=== PATIENT | male | born 1930 | race Caucasian/White ===

== ENCOUNTER 2018-08-29 04:57 | Inpatient (IN) | payer MEDICARE, OTHER ==
[~2018-08-29] VITALS: Ht 170.2 cm; Wt 83.6 kg
[2018-08-29] MEDS ORDERED: IPRATROPIUM (NEB) 0.5 MG/2.5 ML AMP INH STA (05:12)
[2018-08-29] MEDS ORDERED: ALBUTEROL 0.083% (NEB) 2.5 MG/3 ML AMP INH STA (05:12)
[2018-08-29] MEDS ORDERED: FUROSEMIDE 40 MG INJ IV ONE (05:30)
[2018-08-29] MEDS: PANTOPRAZOLE (EC) 40 MG TAB PO SCH (06:00)
[2018-08-29] MEDS ORDERED: NACL 0.9% 3 ML SYG IV SCH (06:00)
[2018-08-29] MEDS ORDERED: ACETAMINOPHEN 325 MG TAB PO PRN (06:00)
[2018-08-29] MEDS ORDERED: DOCUSATE SODIUM 100 MG CAP PO PRN (06:00)
[2018-08-29] MEDS ORDERED: MAGNESIUM HYDROXIDE 30ML CUP PO PRN (06:00)
--- NOTE | 2018-08-29 06:02 | ERD ---
ER Documentation Chief Complaint Chief Complaint sob/fever x 2 days HPI This is a 87-year-old male who presents for evaluation of shortness of breath, and low-grade fevers at home. Temperature on arrival was 100.2, patient has been having coarse breath sounds, since earlier today, per the son, he has a history of "fluid in his lungs". He is currently on Lasix. He denies nausea or vomiting. He endorses some urinary retention, no abdominal pain. ROS All systems reviewed and are negative except as per history of present illness. Medications Home Meds Unable to Obtain Active Prescriptions or Reported Meds Allergies Allergies: Coded Allergies: No Known Allergy (Unverified , 10/07/13) PMhx/Soc History of Surgery: Yes (APPENDECTOMY. SUPRAPUBIC CATHETER PLACEMENT) Anesthesia Reaction: No Hx Neurological Disorder: No Hx Respiratory Disorders: Yes (ASTHMA. BRONCHITIS. COPD. PNEUMONIA. ) Hx Cardiac Disorders: Yes (A.FIB, HF) Hx Psychiatric Problems: Yes (DEPRESSION) Hx Miscellaneous Medical Probl: Yes (HTN, A-fib, urinary retention , herniated disk) Hx Alcohol Use: No Hx Substance Use: No Hx Tobacco Use: No Smoking Status: Former smoker Physical Exam Vitals Vital Signs Date Temp Pulse Resp B/P (MAP) Pulse Ox O2 O2 Flow FiO2 Time Delivery Rate 08/29/18 67 24 94 21 05:56 08/29/18 100.2 66 22 125/55 94 Room Air 05:47 (78) 08/29/18 100.2 67 22 167/74 94 05:02 (105) Physical Exam Const: No acute distress Head: Atraumatic Eyes: Normal Conjunctiva ENT: Normal External Ears, Nose and Mouth. Neck: Full range of motion. No meningismus. Resp: Breath sounds are rhonchorous bilaterally, with noted expiratory wheezing, there is mild JVD Cardio: Regular rate and rhythm, no murmurs Abd: Soft, non tender, non distended, no rebound or guarding. Normal bowel sounds Skin: No petechiae or rashes Back: No midline or flank tenderness Ext: No cyanosis, or edema Neur: Awake and alert Psych: Normal Mood and Affect Result Diagram: 08/29/18 05 Results 24 hrs Laboratory Tests Test 08/29/18 05:26 08/29/18 05:47 White Blood Count 8.2 10^3/ul Red Blood Count 3.50 10^6/ul Hemoglobin 10.9 g/dl Hematocrit 34.0 % Mean Corpuscular Volume 97.1 fl Mean Corpuscular Hemoglobin 31.1 pg Mean Corpuscular Hemoglobin Concent 32.1 g/dl Red Cell Distribution Width 13.2 % Platelet Count 196 10^3/UL Mean Platelet Volume 10.3 fl Immature Granulocytes % 0.400 % Neutrophils % 69.4 % Lymphocytes % 17.3 % Monocytes % 11.4 % Eosinophils % 1.1 % Basophils % 0.4 % Nucleated Red Blood Cells % 0.0 /100WBC Immature Granulocytes # 0.030 10^3/ul Neutrophils # 5.7 10^3/ul Lymphocytes # 1.4 10^3/ul Monocytes # 0.9 10^3/ul Eosinophils # 0.1 10^3/ul Basophils # 0.0 10^3/ul Nucleated Red Blood Cells # 0.0 10^3/ul Prothrombin Time 16.5 Sec Prothrombin Time Ratio 1.3 INR International Normalized Ratio 1.32 Bedside Urine pH (LAB) 5.0 Bedside Urine Protein (LAB) Negative Bedside Urine Glucose (UA) Negative Bedside Urine Ketones (LAB) Negative Bedside Urine Blood 2+ Bedside Urine Nitrite (LAB) Negative Bedside Urine Leukocyte Esterase (L 1+ Current Medications Medications Dose Sig/Reyna Start Time Status Last (Trade) Ordered Route PRN Stop Time Admin Dose Reason Admin Albuterol 5 mg ONCE STAT 08/29/18 DC 08/29/18 (Proventil INH 05:12 08/29/18 05:55 0.083% (Neb)) 05:14 Ipratropium 0.5 mg ONCE STAT 08/29/18 DC 08/29/18 [place] INH 05:12 08/29/18 05:56 (Atrovent 05:14 0.02% (Neb)) Furosemide 40 mg ONCE ONCE 08/29/18 DC 08/29/18 (Lasix) IV 05:30 08/29/18 05:44 05:31 Procedures/MDM 87-year-old male presents for evaluation of shortness of breath. On exam, patient had coarse breath sounds, my suspicion is that the patient most likely has bronchitis, with superimposed CHF. He had no evidence of sepsis or severe sepsis, her EKG showed no evidence of ischemia. He was treated with albuterol and ipratropium, also given a dose of Lasix. Patient will be admitted to telemetry. On review of his x-ray, he had no evidence of consolidation or signs of bacterial pneumonia. Bacterial cultures were ordered but at this point there is no clear evidence of bacterial infection. EKG: Rate/Rhythm: Normal Sinus Rhythm QRS, ST, T-waves: No changes consistent w/ acute ischemia Impression: No evidence of ischemia or arrhythmia Accepting Care Team: Current data and ongoing care discussed. Primary: [place] Consulting: None Outstanding Data: none Departure Diagnosis: Primary Impression: Shortness of breath Additional Impression: CHF (congestive heart failure) Heart failure type: unspecified Heart failure chronicity: unspecified Qualified Codes: I50.9 - Heart failure, unspecified Condition: Stable ALIVIA WELLS MD Aug 29, 2018 06:02
[2018-08-29] MEDS ORDERED: AMIO200T4 PO (06:43)
[2018-08-29] MEDS ORDERED: ESCI10TA48 PO (06:43)
[2018-08-29] MEDS ORDERED: HYDR-3601 PO (06:43)
[2018-08-29] MEDS ORDERED: DEXL60CA2 PO (06:43)
[2018-08-29] MEDS ORDERED: SIMV20TA20 PO (06:43)
[2018-08-29] MEDS ORDERED: FURO40TA4 PO (06:43)
[2018-08-29] MEDS ORDERED: POTA8TAB46 PO (06:43)
[2018-08-29] MEDS ORDERED: LOSA50TA14 PO (06:43)
[2018-08-29] MEDS ORDERED: ALPR0.5T6 PO (06:43)
[2018-08-29] MEDS ORDERED: APIX5TAB PO (06:44)
[2018-08-29] MEDS ORDERED: ALBUTEROL 0.083% (NEB) 2.5 MG/3 ML AMP HHN STA (07:17)
[2018-08-29] MEDS: ONDANSETRON 4 MG INJ IV PRN (07:43)
[2018-08-29] MEDS ORDERED: ACETAMINOPHEN 650 MG SUPP PR ONE ×2 (08:29→08:30)
[2018-08-29] MEDS ORDERED: ACETAMINOPHEN 325 MG SUPP PR ONE ×2 (08:29→08:30)
[2018-08-29] MEDS ORDERED: ACETAMINOPHEN 325 MG TAB PO ONE (08:30)
[2018-08-29] MEDS: AZITHROMYCIN 500MG/NS (PMX) 250 ML IVPB SCH (09:03)
[2018-08-29] MEDS: ALBUTEROL/IPRATROPIUM (NEB) 3 ML AMP HHN SCH ×4 (09:13→19:56)
[2018-08-29] MEDS ORDERED: CEFTRIAXONE 1 GM/50 ML (PMX) 50 ML IVPB SCH (10:00)
[2018-08-29 10:30] VITALS: Ht 170.2 cm; Wt 83.6 kg
[2018-08-29 11:25] VITALS: BP 129/62; PULSE 64; RESP 21
[2018-08-29] MEDS: SOD CHLORIDE 0.9% 1,000 ML IV SCH ×2 (12:06→21:29)
[2018-08-29] MEDS: APIXABAN 5 MG TABLET PO SCH ×2 (12:12→21:29)
[2018-08-29] MEDS: AMIODARONE 200 MG TAB PO SCH (12:12)
[2018-08-29 12:36] VITALS: PULSE 64
[2018-08-29] MEDS: METHYLPREDNISOLONE 125 MG INJ IV SCH ×2 (13:18→21:29)
[2018-08-29] MEDS: CEFEPIME 2GM/50 ML (PMX) 50 ML IVPB SCH (13:18)
[2018-08-29 15:25] VITALS: BP 127/60; PULSE 80; RESP 20
[2018-08-29 16:42] VITALS: PULSE 63
--- NOTE | 2018-08-29 17:31 | HP ---
DATE OF ADMISSION: 08/29/2018 REASON FOR ADMISSION: Acute respiratory failure, high grade fever, acute bronchitis. HISTORY OF PRESENT ILLNESS: The patient is an 87-year-old Citizen Of [place] male well known to me from previo us admission. He has a history of hypertension, atrial fibrillation, urinary retention, previously w ith indwelling Mcgowan catheter, and then suprapubic catheter, which were all removed after as he had r ecently a prostate procedure at [facility] as the patient is not able to urinate. The patient also has lashonda k pain with a herniated disk with history of radiculopathy. The patient has been in the past 2 to 3 weeks, battling mild cough and wheezing. The patient's symptoms got worse with fevers, cough and wor sening shortness of breath. He presented to the emergency department for evaluation. In the ER, the patient's chest x-ray showed right basilar interstitial opacities, new from the prior exam from a fe w hours prior, likely reflecting atelectasis, mild prominence of interstitial markings may reflect mi ld underlying interstitial edema or chronic changes, mild cardiomegaly and aortic atheroscleros is. In the first chest x-ray shows no evidence of acute cardiopulmonary disease, aortic calcificatio n. Further findings will discussed. Ultimately, the patient did receive 40 IV of Lasix, but then he had high grade fever up to 105.5. I did start the patient on Rocephin and azithromycin. Upon evalu ation, the patient does report shortness of breath, fevers and cough. The patient is admitted for fu rther care. PAST MEDICAL HISTORY: Includes hypertension, atrial fibrillation, urinary retention, history of supr apubic catheter, constipation, neurogenic bladder. ALLERGIES: NO DRUG ALLERGIES. SOCIAL HISTORY: He is , +1. Tobacco, used to smoke in the past more than 30 years ago. No a lcohol or IV drug use. PAST SURGICAL HISTORY: Includes suprapubic catheter placement in the past with the above prostate pr ocedulani at [facility] 3 weeks ago. FAMILY HISTORY: Both parents in their 70s, unknown medical problems. The patient is from [facility]. CURRENT MEDICATIONS: Includes: 1. Eliquis 5 mg b.i.d. 2. Amiodarone 200 mg daily. 3. Losartan 50 mg daily. 4. Simvastatin 20 mg at bedtime. 5. Alprazolam 0.5 at bedtime. 6. Lexapro 20 mg daily. 7. [place] 5/325 daily. 8. Lasix 40 mg daily. 9. KCl 8 mEq b.i.d. 10. Dexilant 60 mg daily. PHYSICAL EXAMINATION: VITAL SIGNS: Temperature 102.4, T-max 105.5, pulse 70, respirations 20, blood pressure 121/76, satur ation 97% on high flow oxygen. GENERAL: The patient is in no acute distress, alert. CARDIOVASCULAR: S1 and S2. Distant heart sounds. LUNGS: Diffuse rhonchi and wheezing bilaterally, moderate to severe. ABDOMEN: Soft, nontender. EXTREMITIES: Trace edema of the lower extremities after the Lasix in the ER. The patient movi ng all extremities. The patient currently has a Mcgowan. LABORATORY DATA: White count is 8.2, hemoglobin 10.9, hematocrit 34, platelet count of 196, neutroph ils 69%, lymphocytes 17%, monocytes 11%. Chemistry: Sodium 138, potassium 4.5, chloride 105, bicarb lucas 24, BUN is 22, creatinine 2.14, glucose 108. Lactic acid is high at 3.5. AST 33, ALT 32, missael line phosphatase 69. BNP 1650. Total protein 7.0, albumin 4.0. Urinalysis does show +1 leukocyte e sterase. INR is 1.32. Renal ultrasound, which I ordered shows markedly limited exam by technique an d due to the patient's ability to position for the exam. The kidneys are not visualized due to overl jailnee bowel gas. Non-distended urinary bladder with Mcgowan catheter in place. ASSESSMENT AND PLAN: This is an 87-year-old Citizen Of [place] male with history of atrial fibrillation, hyper tension, urinary retention, low back pain, depression, who presented with 2 to 3 weeks with worsening shortness of breath, was found to have acute respiratory failure, likely due to acute bronchitis, po ssible early pneumonia. 1. Respiratory. The patient is in respiratory distress. We will place the patient on breathing gwen atment around the clock, IV steroids with Solu-Medrol and antibiotics with cefepime and azithromycin. Check MRSA of the nares. Consider pulmonary consultation for further recommendation. 2. Cardiovascular. Less likely CHF picture. As the patient had elevated lactic acid and high grade fever, we will start the patient on gentle hydration and monitor closely. Obtain 2D echo to evaluat e ejection fraction. The patient will continue with Eliquis in the history of atrial fibrillation. EKG showed normal sinus rhythm with sinus arrhythmia at 86 beats per minute. We will follow. Contin ue Eliquis for blood thinners. 3. Urinary tract infection with acute bronchitis. The patient to be placed on cefepime. Follow up urine culture results. 4. Depression. Continue antidepressant. 5. The patient will be placed on soft diet. Aspiration precaution will be provided. 6. The patient will be placed on Protonix for GI prophylaxis. 7. Stool softeners will be provided. Monitor the patient's fever curve and overall condition. Keep the patient to the telemetry unit. 8. Acute renal failure. Again, the patient will be hydrated gently in the setting of fevers and link al failure. Mcgowan to gravity. Noted ultrasound of the above, which no evidence of hydronephrosis. We will follow closely. Case discussed with his nephew at bedside. We will follow. Dictated By: SERGIO CERVANTES/NEHAL Conf#: [id number] DID#: [id number]
[2018-08-29 20:00] VITALS: PULSE 65
[2018-08-29 20:37] VITALS: BP 126/60; PULSE 63; RESP 22
[2018-08-29] MEDS: ALPRAZOLAM 0.5 MG TAB PO SCH (21:29)
[2018-08-30] VITALS (12 sets, daily range): BP systolic 122–146; BP diastolic 56–67; PULSE 64–87; RESP 20–24
[2018-08-30] MEDS: ALBUTEROL/IPRATROPIUM (NEB) 3 ML AMP HHN SCH ×6 (01:03→20:14)
[2018-08-30] MEDS: SOD CHLORIDE 0.9% 1,000 ML IV SCH ×2 (02:00→11:15)
[2018-08-30] MEDS: PANTOPRAZOLE (EC) 40 MG TAB PO SCH (05:08)
[2018-08-30] MEDS: METHYLPREDNISOLONE 125 MG INJ IV SCH ×2 (05:09→14:12)
[2018-08-30] MEDS: AZITHROMYCIN 500MG/NS (PMX) 250 ML IVPB SCH (08:51)
[2018-08-30] MEDS: ESCITALOPRAM 10 MG TAB PO SCH (08:51)
[2018-08-30] MEDS: AMIODARONE 200 MG TAB PO SCH (08:52)
[2018-08-30] MEDS: APIXABAN 5 MG TABLET PO SCH ×2 (08:52→21:36)
[2018-08-30] MEDS: CEFEPIME 2GM/50 ML (PMX) 50 ML IVPB SCH (11:14)
--- NOTE | 2018-08-30 17:55 | PN ---
DATE: 08/30/2018 SUBJECTIVE: The patient was seen, overall doing better, still slight wheezing, but appears to be mor e anxious, likely from Solu-Medrol. PHYSICAL EXAMINATION: VITAL SIGNS: Temperature 97.8, pulse 76, respirations 20, blood pressure 135/60, saturation 95% on 4 liters. GENERAL: The patient is in no acute distress. He is slightly tremulous. HEENT: The patient is flushed at the face. CARDIOVASCULAR: S1, S2. LUNGS: Still mild to moderate wheezing throughout. ABDOMEN: Soft, nontender. EXTREMITIES: Trace edema lower extremities. LABORATORY DATA: White count 8.2, hemoglobin 10.9, hematocrit 34, platelet count is 196, neutrophils 69%, lymphocytes 17%. Chemistry: Sodium 138, potassium 4.5, chloride 105, bicarbonate 24, BUN 32, creatinine 2.14, glucose 108. This was yesterday. Today's latest labs were just ordered, CBC and ba sic metabolic panel. Hemoglobin A1c is 5.3. Lactic acid went nicely from 4.2 to 2.1. The patient's urinalysis was positive. INR was 1.32. Influenza A and B was negative. MRSA screening is pending. So far, blood cultures, urine culture negative. DIAGNOSTIC DATA: Renal ultrasound shows markedly limited examination due to the patient's ability po sition for exam. The kidneys are not visualized. Not distended urinary bladder with Mcgowan catheter in place. MEDICATIONS: 1. Lexapro 20 mg daily. 2. Xanax 0.5 mg at bedtime. 3. Solu-Medrol 80 mg IV q.8. 4. Cefepime 1 gram q.24 hours. 5. Eliquis 2.5 b.i.d. 6. Amiodarone 200 mg daily. 7. Normal saline at 90 mL an hour. 8. DuoNeb every 4 hours. 9. Azithromycin 250 daily. 10. DuoNeb every 2 hours p.r.n. 11. Zofran p.r.n. 12. Tylenol p.r.n. 13. Colace p.r.n. 14. Milk of Magnesia p.r.n. 15. Protonix p.r.n. ASSESSMENT AND PLAN: This is an 87-year-old [place] male with history of atrial fibrillation, hyper tension, urinary retention, low back pain, depression, presented with 2 to 3 days worsening shortness of breath, was found to have acute respiratory failure, likely acute bronchitis and possible early p neumonia. 1. Respiratory: Continue treatment for chronic obstructive pulmonary disease exacerbation and acute bronchitis. Taper down steroids. Continue antibiotic with cefepime and azithromycin. Awaiting pul monary consultation. Methicillin-resistant Staphylococcus aureus of the nares is pending. 2. Cardiovascular: Less likely congestive heart failure but we will Hep-Lock IV fluids. His lactic acid has improved. Continue Eliquis for anticoagulation for atrial fibrillation based on age and ki dney function. 3. Acute on chronic renal insufficiency. Hydrate with IV fluids. Follow up kidney function and lab s today. 4. Urinary and acute bronchitis. Continue above antibiotics. 5. Depression. Continue antidepressants. 6. Anxiolytics p.r.n. 7. Continue Protonix for gastrointestinal prophylaxis. 8. Stool softeners are being provided. 9. Keep Mcgowan for now until the patient's overall condition improves more. Overall, clinically bett er. We will follow. Dictated By: SERGIO CERVANTES/NEHAL Conf#: [id number] DID#: [id number]
[2018-08-30] MEDS ORDERED: FUROSEMIDE 40 MG INJ IV ONE (20:00)
--- NOTE | 2018-08-30 20:02 | CONS ---
Assessment/Plan Assessment/Plan Assessment/Plan (Daily) IMP: 1. Hypoxemic Respiratory Insufficiency--a complicated clinical picture that is likely multifactorial representing a combination of notable bronchospasm and mild decompensated heart failure. No obvious pneumonia noted on chest radiographs. Additionally, his high fevers and leukocytosis cannot be explained by his respiratory issues, raising concern for an alternative source of infection (ie. urinary). RECS: 1. Agree with aggressive duonebs and systemic corticosteroids 2. Continue antibiotics 3. F/U cultures 4. Repeat UA 5. Lasix IV 6. Follow I/O's and creatinine 7. May also benefit from chest PT 8. Am CXR and labs Consultation Date/Type/Reason Admit Date/Time Aug 29, 2018 at 05:45 Date of Consultation: Aug 30, 2018 Type of Consult Pulm Date/Time of Note DATE: 08/30/18 TIME: 19:54 Hx of Present Illness Briefly, this is an 87-year-old man with history of atrial fibrillation, hypertension, urinary retention s/p TURP, low back pain, depression, presented with 2 to 3 days worsening shortness of breath, was found to have acute hypoxemic respiratory insufficiency with wheezing. Also endorses orthopnea and PND. Had high fevers yesterday and an up-trending WBC count. Constitutional: no complaints Eyes: no complaints ENT: no complaints Respiratory: no complaints, shortness of breath, wheezing Cardiovascular: no complaints, orthopenea, paroxysmal nocturnal dyspnea Gastrointestinal: no complaints Genitourinary: no complaints Musculoskeletal: no complaints Skin: no complaints Neurologic: no complaints Endocrine: no complaints Lymphatic: no complaints Psychological: no complaints Past Medical History as per HPI Home Meds Reported Medications Losartan Potassium* (Losartan Potassium*) 50 Mg Tablet, 50 MG PO DAILY, TAB 08/29/18 Simvastatin (Simvastatin) 20 Mg Tablet, 20 MG PO QHS for 90 Days, #90 08/29/18 Furosemide* (Furosemide*) 40 Mg Tablet, 40 MG PO DAILY for 90 Days, #90 08/29/18 Potassium Chloride (K-Tab ER) 8 Meq Tablet.er, 8 MEQ PO BID for 90 Days, #180 08/29/18 Escitalopram Oxalate* (Escitalopram Oxalate*) 10 Mg Tablet, 20 MG PO DAILY for 90 Days, #90 08/29/18 Hydrocodone Bit-Acetaminophen (Hydrocodone Bit-APAP) 5-325MG Tablet, 1 TAB PO DAILY 6/1/19 Dexlansoprazole (Dexilant) 60 Mg Tree., 60 MG PO DAILY for 90 Days, #90 08/29/18 Amiodarone Hcl* (Amiodarone Hcl*) 200 Mg Tablet, 200 MG PO DAILY for 90 Days, #90 08/29/18 Alprazolam* (Alprazolam*) 0.5 Mg Tablet, 0.5 MG PO QHS for 30 Days, #30 08/29/18 Discontinued Reported Medications Apixaban* (Eliquis*) 5 Mg Tablet, 5 MG PO BID for 90 Days, #180 08/29/18 Medications Current Medications IV Flush (NS 3 ml) 3 ml PER PROTOCOL IV ; Start 08/29/18 at 06:00 Ondansetron HCl (Zofran Inj) 4 mg Q6H PRN IV NAUSEA/VOMITING Last administered on 08/29/18at 07:43; Admin Dose 4 MG; Start 08/29/18 at 06:00 Acetaminophen (Tylenol Tab) 650 mg Q6H PRN PO .PAIN 1-3 OR TEMP; Start 08/29/18 at 06:00 Docusate Sodium (Colace) 100 mg Q12H PRN PO .CONSTIPATION; Start 08/29/18 at 06:00 Magnesium Hydroxide (Milk Of Mag) 30 ml DAILY PRN PO .CONSTIPATION; Start 08/29/18 at 06:00 Pantoprazole (Protonix Tab) 40 mg DAILY@06 PO Last administered on 08/30/18at 0 5:08; Admin Dose 40 MG; Start 08/29/18 at 06:00 Albuterol/ Ipratropium (Duoneb) 3 ml Q4H RESP THERAPY HHN Last administered on 08/30/18at 16:51; Admin Dose 3 ML; Start 08/29/18 at 09:00 Albuterol/ Ipratropium (Duoneb) 3 ml Q2H RESP THERAPY PRN HHN SHORTNESS OF BREATH; Start 08/29/18 at 06:30 Azithromycin 250 ml @ 250 mls/hr DAILY IVPB Last administered on 08/30/18at 08:51; Admin Dose 250 MLS/HR; Start 08/29/18 at 09:00 Cefepime HCl 50 ml @ 100 mls/hr Q24H IVPB Last administered on 08/30/18at 11:14; Admin Dose 100 MLS/HR; Start 08/29/18 at 12:00 Apixaban (Eliquis) 2.5 mg BID PO Last administered on 08/30/18at 08:52; Admin Dose 2.5 MG; Start 08/29/18 at 11:00 Alprazolam (Xanax) 0.5 mg QHS PO Last administered on 08/29/18at 21:29; Admin Dose 0.5 MG; Start 08/29/18 at 21:00 Amiodarone HCl (Cordarone) 200 mg DAILY PO Last administered on 08/30/18at 08:52; Admin Dose 200 MG; Start 08/29/18 at 11:00 Escitalopram Oxalate (Lexapro) 20 mg DAILY PO Last administered on 08/30/18at 08:51; Admin Dose 20 MG; Start 08/30/18 at 09:00 Methylprednisolone Sodium Succinate (Solu-Medrol) 40 mg Q8 IV ; Start 08/30/18 at 22:00 Allergies: Coded Allergies: No Known Allergy (Unverified , 10/07/13) Past Surgical History as per HPI Family History Significant Family History: no pertinent family hx Social History Alcohol Use: none Smoking Status: Former smoker Drug Use: none Exam/Review of Systems Exam Vitals Vital Signs Date Temp Pulse Resp B/P (MAP) Pulse Ox O2 O2 Flow FiO2 Time Delivery Rate 08/30/18 4.0 18:30 08/30/18 96 16:56 08/30/18 82 20 Aerosol 16:55 Mask Nasal Cannula 08/30/18 98.1 144/67 15:00 (92) 08/29/18 80 09:14 Intake and Output 08/29/18 08/29/18 08/30/18 1515:00 23:00 07:00 IntakeIntake Total 500 ml 1760 ml OutputOutput Total 1400 ml 400 ml BalanceBalance -900 ml 1360 ml Constitutional: alert, oriented, well developed Head: normocephalic, atraumatic Eyes: nl conjunctiva, EOMI, nl lids ENMT: mucosa pink and moist Neck: supple, non-tender Respiratory: congested cough, crackles/rales, wheezing Cardiovascular: edema, irregular rhythm Gastrointestinal: soft, nl liver, spleen, non-tender Musculoskeletal: nl extremities to inspection Extremities: edema Neurological: RECREATION ENGINEER II-XII intact, DTR's symmetric Results Result Diagram: 08/30/18 1538 08/30/18 1747 Results 24hrs Laboratory Tests Test 08/30/18 05:07 08/30/18 15:38 08/30/18 17:47 Hemoglobin A1c 5.3 Lactic Acid Level 2.1 *H White Blood Count 18.9 #H Red Blood Count 3.54 L Hemoglobin 11.2 L Hematocrit 34.4 L Mean Corpuscular Volume 97.2 Mean Corpuscular Hemoglobin 31.6 Mean Corpuscular Hemoglobin Concent 32.6 Red Cell Distribution Width 13.9 Platelet Count 184 Mean Platelet Volume 11.7 H Immature Granulocytes % 1.500 H Neutrophils % Segmented Neutrophils % (Manual) 76 Band Neutrophils % (Manual) 20 H Lymphocytes % Lymphocytes % (Manual) 1 L Monocytes % Monocytes % (Manual) 2 Eosinophils % Basophils % Metamyelocytes % (manual) 1 H Nucleated Red Blood Cells % 0.0 Immature Granulocytes # 0.290 H Neutrophils # Neutrophils # (Manual) 15.1 H Band Neutrophils # 3.7 H Lymphocytes (Manual) 0.1 L Lymphocytes # 0.2 L Monocytes # 0.4 Monocytes # (Manual) 0.3 Eosinophils # Basophils # Metamyelocytes # 0.1 H Nucleated Red Blood Cells # Platelet Estimate NORMAL Sodium Level 140 Potassium Level 4.4 Chloride Level 108 Carbon Dioxide Level 21 Anion Gap 11 Blood Urea Nitrogen 43 #H Creatinine 1.99 H Est Glomerular Filtrat Rate mL/min Glucose Level 162 Calcium Level 8.1 L Medications Medication Current Medications IV Flush (NS 3 ml) 3 ml PER PROTOCOL IV ; Start 08/29/18 at 06:00 Ondansetron HCl (Zofran Inj) 4 mg Q6H PRN IV NAUSEA/VOMITING Last administered on 08/29/18at 07:43; Admin Dose 4 MG; Start 08/29/18 at 06:00 Acetaminophen (Tylenol Tab) 650 mg Q6H PRN PO .PAIN 1-3 OR TEMP; Start 08/29/18 at 06:00 Docusate Sodium (Colace) 100 mg Q12H PRN PO .CONSTIPATION; Start 08/29/18 at 06:00 Magnesium Hydroxide (Milk Of Mag) 30 ml DAILY PRN PO .CONSTIPATION; Start 08/29/18 at 06:00 Pantoprazole (Protonix Tab) 40 mg DAILY@06 PO Last administered on 08/30/18 05:08; Admin Dose 40 MG; Start 08/29/18 at 06:00 Albuterol/ Ipratropium (Duoneb) 3 ml Q4H RESP THERAPY HHN Last administered on 08/30/18 16:51; Admin Dose 3 ML; Start 08/29/18 at 09:00 Albuterol/ Ipratropium (Duoneb) 3 ml Q2H RESP THERAPY PRN HHN SHORTNESS OF BREATH; Start 08/29/18 at 06:30 Azithromycin 250 ml @ 250 mls/hr DAILY IVPB Last administered on 08/30/18 08:51; Admin Dose 250 MLS/HR; Start 08/29/18 at 09:00 Cefepime HCl 50 ml @ 100 mls/hr Q24H IVPB Last administered on 08/30/18 11:14; Admin Dose 100 MLS/HR; Start 08/29/18 at 12:00 Apixaban (Eliquis) 2.5 mg BID PO Last administered on 08/30/18 08:52; Admin Dose 2.5 MG; Start 08/29/18 at 11:00 Alprazolam (Xanax) 0.5 mg QHS PO Last administered on 08/29/18 21:29; Admin Dose 0.5 MG; Start 08/29/18 at 21:00 Amiodarone HCl (Cordarone) 200 mg DAILY PO Last administered on 08/30/18 08:52; Admin Dose 200 MG; Start 08/29/18 at 11:00 Escitalopram Oxalate (Lexapro) 20 mg DAILY PO Last administered on 08/30/18 08:51; Admin Dose 20 MG; Start 08/30/18 at 09:00 Methylprednisolone Sodium Succinate (Solu-Medrol) 40 mg Q8 IV ; Start 08/30/18 at 22:00 MICAELA AGUILERA MD Aug 30, 2018 20:02
[2018-08-30] MEDS: METHYLPREDNISOLONE 40 MG INJ IV SCH (21:36)
[2018-08-30] MEDS: ALPRAZOLAM 0.5 MG TAB PO SCH (21:36)
[2018-08-30] MEDS: ALBUTEROL/IPRATROPIUM (NEB) 3 ML AMP HHN PRN (23:15)
[2018-08-31] VITALS (26 sets, daily range): BP systolic 112–172; BP diastolic 52–81; PULSE 72–91; RESP 16–31
[2018-08-31] MEDS: ALBUTEROL/IPRATROPIUM (NEB) 3 ML AMP HHN SCH ×6 (01:00→20:45)
[2018-08-31] MEDS: ONDANSETRON 4 MG INJ IV PRN (05:02)
[2018-08-31] MEDS: METHYLPREDNISOLONE 40 MG INJ IV SCH ×3 (05:22→22:11)
[2018-08-31] MEDS ORDERED: LORAZEPAM 2 MG INJ IV ONE (05:30)
[2018-08-31] MEDS ORDERED: FUROSEMIDE 20 MG INJ IV ONE (05:30)
[2018-08-31] MEDS: PANTOPRAZOLE (EC) 40 MG TAB PO SCH (05:32)
--- NOTE | 2018-08-31 09:16 | PQ ---
Date/Time of Note Date/Time of Note DATE: 08/31/18 TIME: 09:14 Physician Query Documentation Clarification Documentation in the medical record indicates that this patient has been admitted with or diagnosed as having: This is an 87-year-old [place] male with history of atrial fibrillation, hypertension, urinary retention, low back pain, depression, who presented with 2 to 3 weeks with worsening shortness of breath, was found to have acute respiratory failure, likely due to acute bronchitis, possible early pneumonia. Pt also with Urinary tract infection. The following is also documented in the medical record: WBC: 8.2>18.9>22.2, T: 105.5F, HR: 67, RR: 30 IV cefepime and azithromycin. ED ASSESSMENT: Severe Sepsis To facilitate accurate and complete coding, please chava ( x ) for the suspected diagnosis that applies: Some considerations include but are not limited to: (x) Sepsis ( ) Severe Sepsis without Septic Shock ( ) Severe Sepsis with Septic Shock ( ) Bacteremia ( ) Systemic inflammatory response syndrome (SIRS) due to noninfectious process without acute organ dysfunction ( ) Systemic inflammatory response syndrome (SIRS) due to noninfectious process with acute organ dysfunction ( ) Other: Present on Admission? ( x ) Yes ( ) No ( ) Clinically unable to determine ( ) Documentation insufficient to determine Please provide your response by clicking edit document, making your choice (x ), clicking ok/save, and finally clicking sign. You may also document your response on your progress notes. Thank you for your time. Sincerely, Chava Caro CCDS CDI Specialist [facility] [id number] [place] [id number] ext. [phone] [email or web address] CHAVA CARO Aug 31, 2018 09:16 SERGIO TREVINO MD Aug 31, 2018 10:26
[2018-08-31] MEDS: ESCITALOPRAM 10 MG TAB PO SCH (09:52)
[2018-08-31] MEDS: APIXABAN 5 MG TABLET PO SCH ×2 (09:52→20:48)
[2018-08-31] MEDS: AMIODARONE 200 MG TAB PO SCH (09:53)
[2018-08-31] MEDS: ALBUTEROL/IPRATROPIUM (NEB) 3 ML AMP HHN PRN (10:48)
[2018-08-31] MEDS ORDERED: VANCOMYCIN IV PER PHARMACY XX SCH (11:30)
--- NOTE | 2018-08-31 11:31 | CONS ---
Assessment/Plan Assessment/Plan Assessment/Plan (Daily) Chest x-ray showing bilateral pneumonia. Superimposed CHF. Assessment recommendations; 1. Patient admitted with combination of CHF and severe bilateral pneumonia with persistent leukocytosis and diffuse bilateral infiltrates on chest x-ray. 2. Acute renal injury. On a background of likely chronic renal insufficiency. 3. Acute encephalopathy. Likely metabolic in etiology. 4. Mild hypercapnic respiratory failure. Add vancomycin intravenously to be dosed by pharmacy. Monitor renal function. Continue BiPAP. Transfer to ICU for closer observation. Obtain follow-up chest x-ray 24 hours as well. Consultation Date/Type/Reason Admit Date/Time Aug 29, 2018 at 05:45 Initial Consult Date 08/30/18 Type of Consult Pulmonary Patient condition is tenuous. On BiPAP. Having significant chest congestion. Take slightly yellow-tinged secretions noted on suctioning. Patient requiring deep nasotracheal suctioning. General exam; elderly male, mildly lethargic. Reason for Consultation H EENT exam; supple neck, positive JVD. No lymphadenopathy. Midline trachea. No thyromegaly. Patient has a nasal trumpet in the right nare. Chest exam; bilateral wheezing with diminished breath sounds. S1-S2 audible, no murmurs. Regular rhythm. Abdomen exam; soft, protuberant. No organomegaly. Bowel sounds audible. Extremity exam; no peripheral edema clubbing. PLASTICS PLATER exam; patient is mildly obtunded. Date/Time of Note DATE: 08/31/18 TIME: 11:28 Exam/Review of Systems Exam Vitals Vital Signs Date Temp Pulse Resp B/P (MAP) Pulse Ox O2 O2 Flow FiO2 Time Delivery Rate 08/31/18 98.3 83 20 145/63 97 11:20 (90) 08/31/18 60 10:50 08/31/18 4.0 05:31 08/30/18 Nasal 23:15 Cannula Results Result Diagram: 08/31/18 0534 08/31/18 0534 Results 24hrs Laboratory Tests Test 08/30/18 15:38 08/30/18 17:47 08/31/18 04:15 08/31/18 05:34 White Blood 18.9 #H 22.2 H Count Red Blood Count 3.54 L 3.83 L Hemoglobin 11.2 L 11.9 L Hematocrit 34.4 L 37.3 L Mean Corpuscular 97.2 97.4 Volume Mean Corpuscular 31.6 31.1 Hemoglobin Mean Corpuscular 32.6 31.9 L Hemoglobin Irene nt Red Cell 13.9 14.1 Distribution Width Platelet Count 184 258 # Mean Platelet 11.7 H 11.1 H Volume Immature 1.500 H 2.400 H Granulocytes % Neutrophils % Segmented 76 77 Neutrophils % (Manual) Band Neutrophils 20 H 20 H % (Manual) Lymphocytes % Lymphocytes % 1 L 1 L (Manual) Monocytes % Monocytes % 2 2 (Manual) Eosinophils % Basophils % Metamyelocytes % 1 H (manual) Nucleated Red 0.0 0.0 Blood Cells % Immature 0.290 H 0.530 H Granulocytes # Neutrophils # Neutrophils # 15.1 H 18.1 H (Manual) Band Neutrophils 3.7 H 4.4 H # Lymphocytes 0.1 L 0.2 L (Manual) Lymphocytes # 0.2 L Monocytes # 0.4 Monocytes # 0.3 0.4 (Manual) Eosinophils # Basophils # Metamyelocytes # 0.1 H Nucleated Red Blood Cells # Platelet NORMAL NORMAL Estimate Sodium Level 140 141 Potassium Level 4.4 5.0 Chloride Level 108 108 Carbon Dioxide 21 23 Level Anion Gap 11 10 Blood Urea 43 #H 50 H Nitrogen Creatinine 1.99 H 2.41 H Est Glomerular Filtrat Rate mL/min Glucose Level 162 169 Calcium Level 8.1 L 8.1 L Blood Gas Blood arterial Specimen Source Arterial Blood 08/31/2018 4:45:28 Date Drawn AM Arterial Blood 7.183 *L pH (Temp corrected) Arterial Blood 59.0 H pCO2 (Temp correct) Arterial Blood 63.6 L pO2 (Temp corrected) Arterial Blood 21.7 L HCO3 Arterial Blood -7.3 L Base Excess Arterial Blood 88.7 L Oxygen Saturatio n Domenico Test ACCEPTAB Arterial Blood Right Radial Gas Puncture Site Arterial 0.7 Blood Carboxyhem oglobin Arterial Blood 0.1 Methemoglobin Blood Gas A-a O2 102.8 H Differential Oxyhemoglobin 88.0 L Percent Blood Gas 37.0 Temperature Blood Gas NASAL CANNULA Modality FiO2 33.0 Blood Gas DAVID MARKS Critical Value Read Back Blood Gas TEDDY Notified Whom Blood Gas 08/31/2018 4:59:34 Notified Time AM Giant Platelets 1 H Poikilocytosis 2+ Absolute 0.072 Reticulocyte Count Percent 1.9 H Reticulocyte Count Lactic Acid 1.3 Level Phosphorus Level 5.8 H Magnesium Level 2.1 Iron Level 44 Total Iron 279 Binding Capacity Percent Iron 16 L Saturation Total Bilirubin 0.2 Direct Bilirubin 0.00 Indirect 0.2 Bilirubin Aspartate Amino 147 H Transf (AST/SGOT ) Alanine 187 H Aminotransferase (ALT/SGPT) Alkaline 60 Phosphatase Total Protein 7.2 Albumin 3.8 Globulin 3.40 H Albumin/Globulin 1.11 Ratio Prostate 1.5 Specific Antigen Vitamin B12 767 Level Folate 11.7 Test 08/31/18 07:30 Blood Gas Blood arterial Specimen Source Arterial Blood 08/31/2018 7:35:27 Date Drawn AM Arterial Blood 7.280 *L pH (Temp corrected) Arterial Blood 49.7 H pCO2 (Temp correct) Arterial Blood 103.7 H pO2 (Temp corrected) Arterial Blood 22.8 HCO3 Arterial Blood -4.1 L Base Excess Arterial Blood 97.5 Oxygen Saturatio n Domenico Test ACCEPTAB Arterial Blood Left Radial Gas Puncture Site Arterial 0.3 Blood Carboxyhem oglobin Arterial Blood 0.2 Methemoglobin Blood Gas A-a O2 342.0 H Differential Oxyhemoglobin 97.0 Percent Blood Gas 37.0 Temperature Blood Gas 24.0 Respiration Rate Blood Gas Actual 27 Respiration Rate Blood Gas MASK - BIPAP Modality FiO2 70.0 Blood Gas 10 Pressure Support Blood Gas 15/5 IPAP/EPAP Ratio Blood Gas NAYLA MARKS Critical Value Read Back Blood Gas TM Notified Whom Blood Gas 08/31/2018 7:44:33 Notified Time AM Medications Medication Current Medications IV Flush (NS 3 ml) 3 ml PER PROTOCOL IV ; Start 08/29/18 at 06:00 Ondansetron HCl (Zofran Inj) 4 mg Q6H PRN IV NAUSEA/VOMITING Last administered on 08/31/18at 05:02; Admin Dose 4 MG; Start 08/29/18 at 06:00 Acetaminophen (Tylenol Tab) 650 mg Q6H PRN PO .PAIN 1-3 OR TEMP; Start 08/29/18 at 06:00 Docusate Sodium (Colace) 100 mg Q12H PRN PO .CONSTIPATION Last administered on 08/30/18at 21:37; Admin Dose 100 MG; Start 08/29/18 at 06:00 Magnesium Hydroxide (Milk Of Mag) 30 ml DAILY PRN PO .CONSTIPATION; Start 08/29/18 at 06:00 Pantoprazole (Protonix Tab) 40 mg DAILY@06 PO Last administered on 08/30/18 05:08; Admin Dose 40 MG; Start 08/29/18 at 06:00 Albuterol/ Ipratropium (Duoneb) 3 ml Q4H RESP THERAPY HHN Last administered on 08/31/18 09:15; Admin Dose 3 ML; Start 08/29/18 at 09:00 Albuterol/ Ipratropium (Duoneb) 3 ml Q2H RESP THERAPY PRN HHN SHORTNESS OF BREATH Last administered on 08/31/18 10:48; Admin Dose 3 ML; Start 08/29/18 at 06:30 Azithromycin 250 ml @ 250 mls/hr DAILY IVPB Last administered on 08/30/18 08:51; Admin Dose 250 MLS/HR; Start 08/29/18 at 09:00 Cefepime HCl 50 ml @ 100 mls/hr Q24H IVPB Last administered on 08/30/18 11:14; Admin Dose 100 MLS/HR; Start 08/29/18 at 12:00 Apixaban (Eliquis) 2.5 mg BID PO Last administered on 08/31/18 09:52; Admin Dose 2.5 MG; Start 08/29/18 at 11:00 Alprazolam (Xanax) 0.5 mg QHS PO Last administered on 08/30/18 21:36; Admin Do se 0.5 MG; Start 08/29/18 at 21:00 Amiodarone HCl (Cordarone) 200 mg DAILY PO Last administered on 08/31/18 09:53; Admin Dose 200 MG; Start 08/29/18 at 11:00 Escitalopram Oxalate (Lexapro) 20 mg DAILY PO Last administered on 08/31/18 09:52; Admin Dose 20 MG; Start 08/30/18 at 09:00 Methylprednisolone Sodium Succinate (Solu-Medrol) 40 mg Q8 IV Last administered on 08/31/18 05:22; Admin Dose 40 MG; Start 08/30/18 at 22:00 JUDE GODINEZ Aug 31, 2018 11:31
[2018-08-31] MEDS: AZITHROMYCIN 500MG/NS (PMX) 250 ML IVPB SCH (12:01)
[2018-08-31] MEDS ORDERED: VANCOMYCIN HCL 1.5 GM in SOD CHLORIDE 0.9% 250 ML IVPB SCH (13:00)
[2018-08-31] MEDS: DOCUSATE SODIUM 100 MG CAP PO SCH ×2 (13:30→20:48)
--- NOTE | 2018-08-31 13:40 | RADRPT ---
Echocardiogram Report Patient Name: CRUZ MENENDEZPatient ID: [id number] : 3 (87y 10m)Study Date: 08/30/2018 9:09:17 AM Gender: MAccession #: [id number] Tech: Manuel Tracy Location: 622-A Ref.Physician: SERGIO TREVINO Height(Cm): BSA: Weight(Kg): Quality: AdequateOrder Physician: SERGIO TREVINO Account #: Procedures: Echocardiographic Report: Transthoracic echocardiogram with complete 2D, M-Mode, and doppler examination. Indications: Congestive Heart Failure. Measurements: 2D/M Mode Doppler Measurement Value Normal Range Measurement Value Normal Range LVIDd 2D 4.8 [ 4.2 - 5.8 ] cm AV Peak Akash 1.9 [ 100.0 - 170.0 ] cm/se c LVIDs 2D 3.2 [ 2.5 - 4.0 ] cm AV Peak PG 14.0 [ 2.0 - 9.0 ] mmHg LVPWd 2D 1.0 [ 0.6 - 1.0 ] cm LVOT Peak Akash 1.2 [ 70.0 - 110.0 ] cm/sec IVSd 2D 0.8 [ 0.6 - 1.0 ] cm LVOT Peak PG 6.0 [ 2.0 - 6.0 ] mmHg AoR Diam 2D 2.8 [ 2.6 - 3.4 ] cm MV E Peak Akash 1.3 [ 60.0 - 130.0 ] cm/sec EDV 2D 110.0 [ 62.0 - 150.0 ] ml MV PHT 58.0 [ 20.0 - 100.0 ] msec ESV 2D 40.3 [ 21.0 - 61.0 ] ml MV Decel Time 198 [ 104 - 258 ] msec EF 2D 63.4 [ 52.0 - 72.0 ] percent MV Decel Curry 7 LA Dimen 2D 5.0 [ 3.0 - 4.0 ] cm Lat E` Akash 0.1 [ 10.0 - 15.0 ] cm/sec Lateral E/E` 14.5 [ 1.0 - 2.0 ] ratio Med E` Akash 0.1 cm/sec MVA PHT 3.8 [ 2.0 - 4.0 ] cm2 TR Peak Akash 3.7 [ 100.0 - 280.0 ] cm/se c TR Peak PG 53.0 mmHg Findings: Left Ventricle: Normal left ventricular systolic function. Normal left ventricular cavity size. Normal left ventricular wall thickness. Ejection fraction is visually estimated at 60-65 %. Right Ventricle: Normal right ventricular size. Normal right ventricular systolic function. Left Atrium: There is mild to mod enlargement of left atrium. Right Atrium: The right atrium is normal in size. Atrial Septum: Normal atrial septum. Ventricular septum: Normal/intact ventricular septum. Mitral Valve: Normal appearance of the mitral valve. Mild mitral valve regurgitation. Aortic Valve: Normal appearance of the aortic valve. No aortic regurgitation. Tricuspid Valve: Normal appearance of the tricuspid valve. The estimated Peak RVSP is 53 mmHg. There is mild tricuspid regurgitation. Pulmonic Valve: Normal pulmonic valve appearance. No evidence of pulmonic regurgitation. Pericardium: Normal pericardium with no significant pericardial effusion. Aorta: Normal aortic root. IVC: The IVC is not well visualized. Conclusions: There is mild to mod enlargement of left atrium. Normal left ventricular systolic function. Normal left ventricular cavity size. Normal left ventricular wall thickness. Ejection fraction is visually estimated at 60-65 %. Normal appearance of the mitral valve. Mild mitral valve regurgitation. n. Normal appearance of the aortic valve. No aortic regurgitation. Normal appearance of the tricuspid valve. The estimated Peak RVSP is 53 mmHg. There is mild tricuspid regurgitation. The IVC is not well visualized. Electronically Signed By: Michoacano Tracey 2018-08-31 13:39:24 PDT
[2018-08-31] MEDS: CEFEPIME 2GM/50 ML (PMX) 50 ML IVPB SCH (14:00)
--- NOTE | 2018-08-31 14:10 | PN ---
DATE: 08/31/2018 SUBJECTIVE: The patient overnight was noted to be in more labored breathing, increased wheezing and in respiratory distress. I ordered an ABG and recommended him to be on BiPAP. Ultimately, the ABG s hows a pH of 7.18, pCO2 of 59, bicarbonate 22, saturation was 89% on 33% FiO2. The patient was place d on BiPAP. ABG improved at 7:30 with pH of 7.28, pCO2 of 50, bicarbonate of 23, pO2 of 104 and satu ration of 98. This is on BiPAP and 70% FiO2. The patient of note was seen by Dr. Masters, the pulsc nology specialist, yesterday. He did receive a dose of Lasix. The patient remains on broad-spectrum antibiotic with cefepime and azithromycin and noted increasing white count and worsening kidney func tion. The patient was seen, arousable, on BiPAP. When I wake him up, he denies any distress. PHYSICAL EXAMINATION: VITAL SIGNS: Temperature is 98.2, pulse 84, respirations 20, blood pressure 139/65, saturation 95% o n 30% FiO2 via BiPAP. GENERAL: The patient is in no acute distress, arousable. CARDIOVASCULAR: S1, S2. LUNGS: Slightly decreased volume inspiration, but there is mild to moderate diffuse wheezing and rho nchi. ABDOMEN: Soft, nontender. EXTREMITIES: There is no clubbing, cyanosis or edema. No evidence of fluid overload state. GENITOURINARY: With Mcgowan. LABORATORY DATA: White count 22.2, hemoglobin 10.9, hematocrit 37, platelet count of 258, segmented neutrophils 77, bands of 20, this is after initiation of steroids, lymphocytes 1%. Urinalysis was po sitive. Of note, patient also was noted to have gross hematuria. MEDICATIONS: 1. Solu-Medrol 40 IV q.8. 2. Lexapro 20 mg daily. 3. Xanax 0.5 at bedtime. 4. Cefepime 1 gram q.24 hours. 5. Eliquis 2.5 b.i.d. 6. Amiodarone 200 daily. 7. DuoNeb as directed. 8. Azithromycin daily. 9. Zofran p.r.n. 10. Tylenol p.r.n. 11. Colace p.r.n. 12. Milk of Magnesia p.r.n. 13. Protonix 40 mg daily. ASSESSMENT AND PLAN: This is an 87-year-old Thai male with history of atrial fibrillation, hyper tension, urinary retention, low back pain, depression, presented with 2 to 3 days of worsening shortn ess of breath, was found to have acute respiratory failure, likely acute bronchitis and possible rigoberto y pneumonia. 1. Respiratory: The patient with worsening respiratory failure requiring BiPAP. Continue antibioti cs. May consider adding vancomycin to cover methicillin-resistant Staphylococcus aureus. Continue s teroids, breathing treatments and BiPAP for now. ABG does show improvement, so I do not see a need f or intubation or immediate transfer to the intensive care unit. Chest x-ray did show improved lung v olume, but new left lung alveolar infiltrate concerning for possible pneumonia. 2. Cardiovascular: Remains on Eliquis. Monitor urine hematuria and may consider stopping blood thi nners. Consider urology consultation. Hold Lasix. Monitor closely. Eliquis for anticoagulation fo r history of atrial fibrillation. Vitals are stable. 3. Gross hematuria and history of urinary retention. Currently has a Mcgowan. Monitor urine output. Monitor hematuria. Consider urology consultation. 4. Depression. Continue antidepressants. Continue anxiolytics p.r.n. 5. Protonix for gastrointestinal prophylaxis. 6. Stool softeners are being provided. 7. Appears to having been stabilized since the night. His lactic acidosis is at 1.3. 8. Acute on chronic renal insufficiency. We will consult nephrology. I would hold on all nephrotox ic medication and diuretics for now. The patient with adequate urine output. We will follow. I hav e been in touch with his nephew, Jaswant. Dictated By: SERGIO CERVANTES/NTS Conf#: [id number] DID#: [id number] CC: OLIVE ANDREWS MD;*End*
--- NOTE | 2018-08-31 15:10 | CONS ---
DATE OF ADMISSION: 08/29/2018 DATE OF CONSULTATION: 08/31/2018 TYPE OF CONSULTATION: Infectious disease. REASON FOR CONSULTATION: Antibiotic management. HISTORY OF PRESENT ILLNESS: Shakir Franco is an 87-year-old male patient of Dr. Ankush Trevino, who co mes in with acute respiratory failure, high-grade fever and bronchitis. The patient is an 87-year-ol d Georgian male. Problems include: 1. Hypertension. 2. Atrial fibrillation. 3. Urinary retention. He had a Mcgowan catheter and then a suprapubic catheter. These were all removed after he had a prosta te procedure at [facility]. The patient is not able to urinate. He also has back pain with herniated disk and history of radiculopathy. Over the past 2 or 3 weeks, he is battling cough and wheezing. He swna s had fever, cough, worsening shortness of breath. He came to the emergency room where he was seen t o have right basilar interstitial opacities, new from his prior exam, likely reflecting atelectasis. Mild prominence of interstitial markings may reflect underlying interstitial edema, cardiomegaly and aortic atherosclerosis. The patient received 40 mg of Lasix. He had a high-grade fever of 105.5. He was started on azithromycin and Rocephin. He has shortness of breath, fever and cough. PAST MEDICAL HISTORY: Include neurogenic bladder as noted. FAMILY HISTORY: Noncontributory. SOCIAL HISTORY: He is . He smokes. He does not drink or abuse drugs. PAST SURGICAL HISTORY: Includes suprapubic catheter placement in the past and prostate procedure at [facility] 3 weeks ago. MEDICATIONS: Per chart. REVIEW OF SYSTEMS: Noncontributory. ALLERGIES: NONE TO PENICILLIN, SULFA OR FOODS. PHYSICAL EXAMINATION: VITAL SIGNS: His temperature on 08/29/2018 was 102.4 up to 105.5. SKIN: Without generalized rash. HEENT: Within normal limits. NECK: Supple. LYMPH NODES: None palpable. CHEST: Decreased breath sounds at the bases with diffuse rhonchi. HEART: Without murmur or gallop. ABDOMEN: Soft, nontender. EXTREMITIES: Without cyanosis, clubbing or edema. He has a Mcgowan catheter in place. RECTAL AND GENITAL: Deferred. NEUROLOGIC: No focal neurological abnormality. HOSPITAL COURSE: White count 8.2, hemoglobin and hematocrit 10.9 and 34, platelet count 196,000 with 69% neutrophils. BUN and creatinine is 22/2.14, glucose 108. Lactic acid was elevated at 3.5. BNP was 1650. Urinalysis showed 1+ leukocyte esterase. Renal ultrasound showed markedly limited exam. Kidney is not visualized well. Nondistended urinary bladder with Mcgowan catheter in place. The amy ent was felt to have increasing shortness of breath, acute respiratory failure, likely due to acute b ronchitis, possibly early pneumonia. He was started on IV steroids of Solu-Medrol and with cefepime and azithromycin. Check MRSA of the nares. Consider pulmonary consultation, urinary tract infection with acute bronchitis. The patient is to be placed on cefepime. Blood cultures are negative. Urin e cultures are negative. Chest x-ray on 08/31/2018 shows improved lung volumes but new left lung frank eolar infiltrate concerning for possible pneumonia. The patient has sepsis. The patient also has ur inary tract infection. The patient is on IV cefepime and azithromycin. He was seen by Dr. Medina as well in pulmonary consultation, hypoxemic respiratory insufficiency. No obvious pneumonia, high f trevni, leukocytosis consistent with both pneumonia and urinary tract infection. We will continue him on current therapy. I will dictate my findings to Dr. Trevino. Dictated By: ALEX SAINI MD, JD/NEHAL Conf#: [id number] DID#: [id number] CC: OLIVE ANDREWS MD; ANKUSH TREVINO MD;*End*
--- NOTE | 2018-08-31 15:49 | PN ---
DATE: 08/31/2018 SUBJECTIVE: I am seeing the patient is the second time. We discussed with Dr. Ponce earlier as the patient is too lethargic, now on BiPAP. He is concerned that he may do poorly. Dr. Ponce informed t he nursing staff to transfer the patient to ICU. Upon evaluation of the patient, the nurses cannot r ecall such request. We will order to send him to the ICU. The patient is arousable, but definitely sleepy. He remains on BiPAP at bedside. Nursing staff did not try to feed him. PHYSICAL EXAMINATION: VITAL SIGNS: Temperature 98.3, pulse 83, respirations 20, blood pressure 145/63, saturation 97% on 6 0% FiO2. GENERAL: The patient is arousable, but weak looking, frail. CARDIOVASCULAR: S1, S2. LUNGS: Still diffuse mild to moderate rhonchi. ABDOMEN: Soft, nontender. EXTREMITIES: Trace edema of the lower extremity noted. This is the second visit today. LABORATORY DATA: White count 22.2, hemoglobin 11.9, hematocrit 37, platelet count of 258, neutrophil s 77%, bands of 20%. Leukocytosis started after the initiation of IV Solu-Medrol. In the meantime, vancomycin was added t o his antibiotic regimen by Dr. Ponce. ASSESSMENT AND PLAN: This is an 87-year-old [place] male with history of atrial fibrillation, hyper tension, urinary retention, low back pain, depression, who presented with 2 to 3 days of worsening sh ortness of breath, was found to have acute respiratory failure, high-grade fevers, bronchitis and ear ly pneumonia. 1. Respiratory: Chest x-ray is worse suggestive of pneumonia. Remains on broad spectrum antibiotic s with cefepime and azithromycin. Vancomycin was added. Continue to monitor. Continue with breathi ng treatment, BiPAP, monitor closely with serial ABGs and labs. 2. Infectious disease: The patient is again with pneumonia and urinary tract infection. Continue a talib antibiotics. Follow up urine. Culture results are so far negative. Urine now is clear. 3. History of atrial fibrillation. Continue anticoagulation with Eliquis 2.5 b.i.d. adjusted per ki dney function and age. 4. Depression, on antidepressants. 5. Continue Protonix for gastrointestinal prophylaxis. 6. Case was discussed with his nephew, Jaswant. I spoke with him morning regarding plan of care. We w ill inform him as well regarding transfer to the intensive care. The patient will be transferred to the intensive care unit just more close monitoring as the patient currently is not monitored as much as we are preferred him to be. We will follow. Dictated By: SERGIO CERVANTES/NEHAL Conf#: [id number] DID#: [id number] CC: OLIVE ANDREWS MD;*EndCC*
--- NOTE | 2018-08-31 17:03 | CONS ---
DATE OF ADMISSION: 08/29/2018 DATE OF CONSULTATION: TYPE OF CONSULTATION: Nephrology. REASON FOR CONSULTATION: Acute kidney injury. PHYSICIAN REQUESTING CONSULT: Ankush Washington MD HISTORY OF PRESENT ILLNESS: This is an 87-year-old male with a past medical history of chronic kidne y disease, history of AFib, urinary retention, hypertension, history of suprapubic catheter, history of neurogenic bladder, who presents to [facility] with fever, cough, shortness of b reath. The patient recently was at [facility] where as an outpatient he had prostatic procedure. The amy ent states since that time for the past several weeks has been feeling weak with complaints of cough and wheezing. The patient's worsening symptoms necessitated him to come in the emergency room where upon arrival, he had a chest x-ray which showed evidence of interstitial opacities, also showed possi ble interstitial edema. The patient was started on IV antibiotics, diuretic therapy and admitted to telemetry. While on telemetry, the patient has been seen by ship boss where patient has been rec eiving nebulizers and has been on BiPAP. The patient was also seen by physical therapy. In terms of patient's renal history on admission, the patient was noted to have a creatinine of 2.14 mg/dL, which has increased to 2.4 mg/dL over the past 48 hours. During this time, the patient has be en receiving diuretic therapy. The patient's urinary output has been adequate. There have been no r eports of any hemoptysis, hematemesis or hematochezia. PAST MEDICAL HISTORY: As stated above, history of hypertension, history of urinary retention, AFib, history of neurogenic bladder and history of chronic kidney disease. PAST SURGICAL HISTORY: Status post suprapubic catheter placement, history of prostatic surgery. FAMILY HISTORY: No family history of kidney disease. SOCIAL HISTORY: Does not actively drink, smoke or do drugs. MEDICATIONS: Have been reviewed. ALLERGIES: HAVE BEEN REVIEWED. REVIEW OF SYSTEMS: A 14-point review of systems was conducted. Pertinent positives stated in HPI, o therwise negative. PHYSICAL EXAMINATION: VITAL SIGNS: Blood pressure is 145/63, respirations 20, pulse 83, temperature 98.3. HEENT: Head is normocephalic. NECK: Supple. HEART: Regular rate. LUNGS: Show diminished breath sounds at the base. ABDOMEN: Soft, nontender to palpation without rebound or guarding. EXTREMITIES: Negative for clubbing, cyanosis. No edema. DERMATOLOGIC: No rashes. MUSCULOSKELETAL: No joint effusion. NEUROLOGIC: No focal deficits. DERMATOLOGIC: No rashes. LABORATORY DATA: Have been reviewed. Urinalysis was reviewed. ASSESSMENT AND PLAN: This is an 87-year-old male who presents with: 1. Nonoliguric acute kidney injury with unknown baseline creatinine, possible chronic kidney disease . Etiology of acute kidney injury is likely multifactorial secondary to hemodynamics, diuretics, pos sibility of tubular injury is a consideration, other considerations include septic acute kidney injur y. Our plan at this point is to do a full evaluation. We will check a UA with microanalysis. We wi ll check urine electrolytes. We will quantify patient's proteinuria. Renal ultrasound was performed , although limited study due to overlying gas pattern. No reported evidence of hydronephrosis. Elvin mmendations to continue current treatment plan. Continue antibiotic therapy. We would hold diuretic therapy. Otherwise, continue supportive care, renally dose all meds, avoid nephrotoxins. 2. Anemia. Monitor hemoglobin and hematocrit levels. 3. Mineral bone disorder. Monitor calcium and phosphorus levels. 4. Sepsis secondary to pneumonia. Continue current medical management. Continue antibiotic therapy . Follow up cultures. Follow up with pulmonary. 5. Lactic acidosis secondary to sepsis. Continue to monitor. Continue to trend lactic acid levels. 6. Acute hypoxemic respiratory failure secondary to pneumonia. Continue medical management. Contin ue nebulizers. Continue BiPAP. 7. Acute encephalopathy. Etiology is likely toxic metabolic. Continue to monitor. 8. Questionable congestive heart failure exacerbation. The patient appears euvolemic on exam. We w ill continue to monitor. 9. History of benign prostatic hypertrophy, status post suprapubic catheter placement. Thank you, Dr. Washington, for this interesting consult. It will be a pleasure to follow patient with you throughout the hospital course. Dictated By: ANGELA BALLARD DO NR/NTS Conf#: [id number] DID#: [id number] CC: OLIVE ANDREWS MD; ANKUSH WASHINGTON MD;*EndCC*
[2018-08-31] MEDS ORDERED: NORepinephrine 8MG/250 ML (PMX 0 ML ONE (18:47)
[2018-08-31] MEDS: ALPRAZOLAM 0.5 MG TAB PO SCH (20:47)
[2018-09-01] VITALS (34 sets, daily range): BP systolic 126–158; BP diastolic 51–74; PULSE 74–88; RESP 18–39
[2018-09-01] MEDS: ALBUTEROL/IPRATROPIUM (NEB) 3 ML AMP HHN SCH ×6 (01:20→20:33)
[2018-09-01] MEDS: PANTOPRAZOLE (EC) 40 MG TAB PO SCH (05:15)
[2018-09-01] MEDS: METHYLPREDNISOLONE 40 MG INJ IV SCH ×3 (05:15→23:06)
--- NOTE | 2018-09-01 08:30 | PN ---
DATE: 09/01/2018 SUBJECTIVE: The patient was transferred from telemetry to the intensive care unit overnight. The chalo arauz has remained on BiPAP and hemodynamically stable. Urinary output has been marginal. There hav e been no reports of any hemoptysis, hematemesis or hematochezia. OBJECTIVE: VITAL SIGNS: Blood pressure is 138/51, respirations 30, pulse 83, temperature 98.4. HEENT: Head is normocephalic. NECK: Supple. HEART: Regular rate. LUNGS: Show diminished breath sounds at the base. ABDOMEN: Soft, nontender to palpation without rebound or guarding. EXTREMITIES: Negative for clubbing, cyanosis. Trace edema. DERMATOLOGIC: No rashes. MUSCULOSKELETAL: No joint effusion. NEUROLOGIC: No change in exam. MEDICATIONS: Reviewed. LABORATORY DATA: Shows a FENa than 1%, protein creatinine ratio approximately 400 mg per gram of cre atinine. Urinalysis shows pyuria, hematuria, nocturia. The patient's CBC, BMP has been reviewed. IMAGING STUDIES: Renal ultrasound was reviewed. Imaging studies have been reviewed. ASSESSMENT AND PLAN: 1. Nonoliguric acute kidney injury with unknown baseline creatinine, possible chronic kidney disease . Etiology of acute kidney injury is secondary to hemodynamics, possible sepsis, volume depletion. The patient's urinalysis shows FENa less than 1%, consistent with prerenal etiology, i.e. volume depl etion, other possibilities include sepsis. Recommendation at this point is to continue current medic al management. Continue IV antibiotics, continue supportive care, and renally dose all medications. We will consider giving the patient a gentle course of IV fluids. 2. Anemia. Continue to monitor hemoglobin and hematocrit levels. 3. Mineral bone disorder, monitor calcium and phosphorus levels. 4. Sepsis secondary to pneumonia. Continue current medical management, continue antibiotic therapy. 5. Acute hypoxemic respiratory failure secondary to pneumonia. The patient is currently on BiPAP. We will continue. Continue nebulizers. Continue antibiotic therapy. Follow up with pulmonary. 6. Acute encephalopathy, etiology is toxic metabolic. Continue to monitor. 7. Benign prostatic hypertrophy with suprapubic catheter. Continue to monitor. 8. Diastolic heart failure. The patient appears compensated. Continue to observe. Dictated By: ANGELA ROSENTHAL/NEHAL Conf#: [id number] DID#: [id number] CC: OLIVE ANDREWS MD; SERGIO TREVINO MD;*EndCC*
[2018-09-01] MEDS: AZITHROMYCIN 500MG/NS (PMX) 250 ML IVPB SCH (08:41)
[2018-09-01] MEDS: DOCUSATE SODIUM 100 MG CAP PO SCH ×2 (08:42→21:18)
[2018-09-01] MEDS: ESCITALOPRAM 10 MG TAB PO SCH (08:43)
[2018-09-01] MEDS: APIXABAN 5 MG TABLET PO SCH ×2 (08:43→21:18)
[2018-09-01] MEDS: AMIODARONE 200 MG TAB PO SCH (08:44)
--- NOTE | 2018-09-01 10:17 | PN ---
DATE: 09/01/2018 SUBJECTIVE: The patient was transferred yesterday to the intensive care unit due to a concern for yuniel miller. The patient has been on BiPAP. Apparently, he got tired from his respiratory condition. Th is morning, patient appears to be more alert. Case discussed with Dr. Gandhi regarding plan of care and transitioning to a nasal cannula 35% FIO2 via BiPAP, definitely doing better. PHYSICAL EXAMINATION: VITAL SIGNS: Temperature 98.5. The patient is afebrile, pulse 83, respirations 30, blood pressure 1 30/51, saturation 93% to 98%, on standard 35% FIO2. GENERAL: The patient is in no acute distress. Arousable but . CARDIOVASCULAR: S1, S2. LUNGS: Still mild to moderate rhonchi bilaterally, inspiratory, expiratory. ABDOMEN: Soft. EXTREMITIES: No significant edema of the lower extremities. LABORATORY DATA: White count is 14.3, hemoglobin 11.2, hematocrit 35, platelet count of 213. Chemis try: Sodium 144, potassium 4.5, chloride 112, bicarbonate 25, BUN is 57, creatinine 2.4, glucose 125 . His PSA is 1.5, calcium 8.0. Lactic acid yesterday was 1.3, normal. Urine analysis again on 05/2018 was positive for +2 leukocyte esterase, WBC greater than 182. MRSA screening, the second one is in process. So far, all urine and blood cultures are negative. Chest x-ray done this morning shows worsening left lung infiltrate. MEDICATIONS: Include: 1. Vancomycin, dose per pharmacy. 2. Colace 100 b.i.d. 3. Vancomycin. 4. Solu-Medrol 40 IV q.8. 5. Lexapro 20 mg daily. 6. Xanax 0.5 at bedtime. 7. Cefepime 1 gram q.24h. 8. Eliquis 2.5 b.i.d. 9. Amiodarone 200 mg daily. 10. Azithromycin, dose per pharmacy. 11. DuoNeb every 2 hours p.r.n. 12. Zofran p.r.n. 13. Tylenol p.r.n. 14. Colace p.r.n. 15. Milk of Magnesia p.r.n. 16. Protonix 40 mg daily. ASSESSMENT AND PLAN: This is an 87-year-old [place] male with history of atrial fibrillation, hyper tension, urinary retention, low back pain, depression, presents with 2 to 3 days worsening shortness of breath, was found to have acute respiratory failure, high grade fever, bronchitis and pneumonia. 1. Respiratory. Chest x-ray just worsening pneumonia. Continue broad spectrum antibiotic with vanc omycin, cefepime and azithromycin. All cultures so far negative. Follow up a second MRSA screening. Continue BiPAP for now. Try to see if we can wean him off the BiPAP. ABG done this morning shows much improvement, pH of 7.32, pCO2 of 45, bicarbonate 23, saturation is 92%. This is on 35% via BiPA P mask. 2. Cardiovascular. No need for pressors. Blood pressure is stable. The patient with history of at rial fibrillation. Continue Eliquis for anticoagulation. 3. Infectious disease, being treated for UTI and pneumonia with broad spectrum antibiotics. White c ount is improved. Afebrile now. Clinically better. 4. Depression. Continue antidepressant. 5. Continue Protonix for GI prophylaxis. 6. Acute renal failure with low urine sodium level suggestive of prerenal etiology, may consider gen tle hydration. No bartolo evidence of fluid overload state. In the meantime, the patient with adequat e urine output, so we can continue to monitor. Case discussed with staff and with the patient's neph ew regarding plan of care. We will follow. Dictated By: SERGIO CERVANTES/NEHAL Conf#: [id number] DID#: [id number]
--- NOTE | 2018-09-01 10:30 | CONS ---
Consult Date/Type/Reason Admit Date/Time Aug 29, 2018 at 05:45 Initial Consult Date 08/30/18 Type of Consult Pulmonary Date/Time of Note DATE: 09/01/18 TIME: 10:27 Subjective Transfer to ICU yesterday for respiratory distress now requiring bilevel ventilation however awake and alert. Did not tolerate nasal cannula O2 Objective Vital Signs Date Temp Pulse Resp B/P (MAP) Pulse Ox O2 O2 Flow FiO2 Time Delivery Rate 09/01/18 93 35 06:35 09/01/18 83 30 138/51 BIPAP 06:00 (80) 09/01/18 98.4 04:00 08/31/18 4.0 05:31 Intake and Output 08/31/18 08/31/18 09/01/18 1515:00 23:00 07:00 IntakeIntake Total 100 ml 355.000 ml 100 ml OutputOutput Total 800 ml 995 ml 340 ml BalanceBalance -700 ml -640.000 ml -240 ml Exam GENERAL: Elderly gentleman on bilevel ventilation VITAL SIGNS: per chart NECK: Supple. No JVD or lymphadenopathy. CARDIAC EXAM: S1, S2. No added sounds or murmurs. CHEST: Diminished air entry bilaterally with few rales ABDOMEN: Soft, nontender. No guarding or rebound. EXTREMITIES: No cyanosis, clubbing or edema. NEUROLOGIC: Generalized weakness. No focal deficits. Vent Setting Fraction of Inspired Oxygen pe: 60 Results/Medications Result Diagram: 09/01/18 0438 09/01/18 0438 Results 24 hrs Chest x-ray CHF left-sided infiltrate Laboratory Tests Test 08/31/18 22:20 09/01/18 04:38 09/01/18 04:39 09/01/18 07:00 Urine Color YELLOW Urine Clarity SLIGHTLY CLOUDY A Urine pH 6.0 Urine Specific 1.016 [place] Urine Ketones NEGATIVE Urine Nitrite NEGATIVE Urine Bilirubin NEGATIVE Urine NEGATIVE Urobilinogen Urine Leukocyte 2+ H Esterase Urine > 182 H Microscopic RBC Urine 49 H Microscopic WBC Urine Bacteria FEW A Urine Hemoglobin 3+ H Urine Random 91.22 Creatinine Urine Random < 13 L Sodium Urine Glucose NEGATIVE Urine Total 51.0 H Protein White Blood 14.3 #H Count Red Blood Count 3.56 L Hemoglobin 11.2 L Hematocrit 34.7 L Mean Corpuscular 97.5 Volume Mean Corpuscular 31.5 Hemoglobin Mean Corpuscular 32.3 Hemoglobin Irene nt Red Cell 14.1 Distribution Width Platelet Count 213 Mean Platelet 11.5 H Volume Immature 1.300 H Granulocytes % Neutrophils % Segmented 88 H Neutrophils % (Manual) Band Neutrophils 10 H % (Manual) Lymphocytes % Monocytes % Monocytes % 2 (Manual) Eosinophils % Basophils % Nucleated Red 0.0 Blood Cells % Immature 0.180 H Granulocytes # Neutrophils # Neutrophils # 12.8 H (Manual) Band Neutrophils 1.4 H # Lymphocytes # Monocytes # Monocytes # 0.2 L (Manual) Eosinophils # Basophils # Nucleated Red Blood Cells # Platelet NORMAL Estimate Giant Platelets 1 H Poikilocytosis 3+ Ovalocytes 1+ Sodium Level 144 Potassium Level 4.5 Chloride Level 112 H Carbon Dioxide 25 Level Anion Gap 7 Blood Urea 57 H Nitrogen Creatinine 2.40 H Est Glomerular Filtrat Rate mL/min Glucose Level 125 # Calcium Level 8.0 L Phosphorus Level 4.2 Magnesium Level 2.4 Blood Gas Blood arterial Specimen Source Arterial Blood 09/01/2018 7:45:15 Date Drawn AM Arterial Blood 7.328 L pH (Temp corrected) Arterial Blood 44.7 pCO2 (Temp correct) Arterial Blood 67.3 L pO2 (Temp corrected) Arterial Blood 22.9 HCO3 Arterial Blood -3.0 Base Excess Arterial Blood 92.1 L Oxygen Saturatio n Domenico Test ACCEPTAB Arterial Blood Right Radial Gas Puncture Site Arterial 0.6 Blood Carboxyhem oglobin Arterial Blood 0 Methemoglobin Blood Gas A-a O2 130.3 H Differential Oxyhemoglobin 91.5 L Percent Blood Gas 37.0 Temperature Blood Gas 24.0 Respiration Rate Blood Gas Actual 29 Respiration Rate Blood Gas MASK - BIPAP Modality FiO2 35.0 Blood Gas 10 Pressure Support Blood Gas 15/5 IPAP/EPAP Ratio Blood Gas TM Notified Whom Blood Gas 09/01/2018 8:09:08 Notified Time AM Medications Current Medications IV Flush (NS 3 ml) 3 ml PER PROTOCOL IV ; Start 08/29/18 at 06:00 Ondansetron HCl (Zofran Inj) 4 mg Q6H PRN IV NAUSEA/VOMITING Last administered on 08/31/18at 05:02; Admin Dose 4 MG; Start 08/29/18 at 06:00 Acetaminophen (Tylenol Tab) 650 mg Q6H PRN PO .PAIN 1-3 OR TEMP; Start 08/29/18 at 06:00 Docusate Sodium (Colace) 100 mg Q12H PRN PO .CONSTIPATION Last administered on 08/30/18 21:37; Admin Dose 100 MG; Start 08/29/18 at 06:00 Magnesium Hydroxide (Milk Of Mag) 30 ml DAILY PRN PO .CONSTIPATION; Start 08/29/18 at 06:00 Pantoprazole (Protonix Tab) 40 mg DAILY@06 PO Last administered on 09/01/18 05:15; Admin Dose 40 MG; Start 08/29/18 at 06:00 Albuterol/ Ipratropium (Duoneb) 3 ml Q4H RESP THERAPY HHN Last administered on 09/01/18 09:47; Admin Dose 3 ML; Start 08/29/18 at 09:00 Albuterol/ Ipratropium (Duoneb) 3 ml Q2H RESP THERAPY PRN HHN SHORTNESS OF BREATH Last administered on 08/31/18 10:48; Admin Dose 3 ML; Start 08/29/18 at 06:30 Azithromycin 250 ml @ 250 mls/hr DAILY IVPB Last administered on 09/01/18 08:41; Admin Dose 250 MLS/HR; Start 08/29/18 at 09:00 Cefepime HCl 50 ml @ 100 mls/hr Q24H IVPB Last administered on 08/31/18 14:00; Admin Dose 100 MLS/HR; Start 08/29/18 at 12:00 Apixaban (Eliquis) 2.5 mg BID PO Last administered on 09/01/18 08:43; Admin Dose 2.5 MG; Start 08/29/18 at 11:00 Alprazolam (Xanax) 0.5 mg QHS PO Last administered on 08/31/18 20:47; Admin Dose 0.5 MG; Start 08/29/18 at 21:00 Amiodarone HCl (Cordarone) 200 mg DAILY PO Last administered on 09/01/18 08:44; Admin Dose 200 MG; Start 08/29/18 at 11:00 Escitalopram Oxalate (Lexapro) 20 mg DAILY PO Last administered on 09/01/18 08:43; Admin Dose 20 MG; Start 08/30/18 at 09:00 Methylprednisolone Sodium Succinate (Solu-Medrol) 40 mg Q8 IV Last administered on 6/4/19at 05:15; Admin Dose 40 MG; Start 08/30/18 at 22:00 Vancomycin HCl (Vanco Iv Per Pharmacy) VANCOMYCIN PER PHARMACY PER PROTOCOL XX ; Start 08/31/18 at 11:30 Vancomycin HCl 1.25 gm/Sodium Chloride 250 ml @ 83.333 mls/ hr Q48H IVPB ; S tart 09/02/18 at 01:00 Docusate Sodium (Colace) 100 mg BID PO Last administered on 09/01/18at 08:42; Ad min Dose 100 MG; Start 08/31/18 at 13:30 Assessment/Plan Hospital Course (Demo Recall) Assessment 1. Hypoxemic respiratory failure likely secondary to mild CHF with left-sided pneumonia possibly healthcare associated 2. Questionable component of aspiration 3. Renal insufficiency 4. Encephalopathy secondary to above toxic metabolic Plan 1. Continue antibiotics 2. Continue bilevel ventilation transition to nasal cannula O2 when possible 3. Aspiration precautions 4. Renal recommendations regarding renal insufficiency Critical care time 40 minutes OLIVE ANDREWS MD, [facility] Sep 01, 2018 10:30
[2018-09-01] MEDS: CEFEPIME 2GM/50 ML (PMX) 50 ML IVPB SCH (13:27)
--- NOTE | 2018-09-01 14:00 | CONS ---
Assessment/Plan Assessment/Plan Hospital Course (Demo Recall) Patient was transferred to ICU started on BiPAP he is awake in no distress no fevers overnight WBC 14.3 neutrophils 88 H&H 11.2 and 34.7 BUN 57 creatinine 2.40 Microbiology: Cultures since admission negative. Urinalysis from yesterday was positive for leukocyte Estrace WBCs and few bacteria. Chest x-ray this morning revealed worsening left lung infiltrate. Renal ultrasound revealed markedly limited examination due to patient's inability to position for examination Antimicrobials: Vancomycin, cefepime, Zithromax Physical examination: Well-developed well-nourished elderly man who is awake in no distress. Head atraumatic normocephalic sclera nonicteric vehicle mucosa dry neck is supple chest rise symmetrical breath sounds with bilateral rhonchi. Heart: S1-S2. Abdomen soft bowel sounds present. Assessment: 1. Acute hypoxemic respiratory failure 2. Pneumonia 3. Mild CHF 4. Urinary tract infection as per urinalysis 5. Acute kidney injury Plan: Patient is stable on BiPAP he is also on steroids, being seen by multiple consultants, continue antibiotics, monitor renal function Consultation Date/Type/Reason Admit Date/Time Aug 29, 2018 at 05:45 Initial Consult Date 08/30/18 Type of Consult id Date/Time of Note DATE: 09/01/18 TIME: 14:00 Exam/Review of Systems Exam Vitals Vital Signs Date Temp Pulse Resp B/P (MAP) Pulse Ox O2 O2 Flow FiO2 Time Delivery Rate 09/01/18 87 24 144/57 98 13:00 (86) 09/01/18 97.7 12:00 09/01/18 40 11:08 09/01/18 BIPAP 06:00 08/31/18 4.0 05:31 Intake and Output 08/31/18 08/31/18 09/01/18 1515:00 23:00 07:00 IntakeIntake Total 100 ml 355.000 ml 100 ml OutputOutput Total 800 ml 995 ml 340 ml BalanceBalance -700 ml -640.000 ml -240 ml Results Result Diagram: 09/01/18 0438 09/01/18 0438 Results 24hrs Laboratory Tests Test 08/31/18 22:20 09/01/18 04:38 09/01/18 04:39 09/01/18 07:00 Urine Color YELLOW Urine Clarity SLIGHTLY CLOUDY A Urine pH 6.0 Urine Specific 1.016 [place] Urine Ketones NEGATIVE Urine Nitrite NEGATIVE Urine Bilirubin NEGATIVE Urine NEGATIVE Urobilinogen Urine Leukocyte 2+ H Esterase Urine > 182 H Microscopic RBC Urine 49 H Microscopic WBC Urine Bacteria FEW A Urine Hemoglobin 3+ H Urine Random 91.22 Creatinine Urine Random < 13 L Sodium Urine Glucose NEGATIVE Urine Total 51.0 H Protein White Blood 14.3 #H Count Red Blood Count 3.56 L Hemoglobin 11.2 L Hematocrit 34.7 L Mean Corpuscular 97.5 Volume Mean Corpuscular 31.5 Hemoglobin Mean Corpuscular 32.3 Hemoglobin Irene nt Red Cell 14.1 Distribution Width Platelet Count 213 Mean Platelet 11.5 H Volume Immature 1.300 H Granulocytes % Neutrophils % Segmented 88 H Neutrophils % (Manual) Band Neutrophils 10 H % (Manual) Lymphocytes % Monocytes % Monocytes % 2 (Manual) Eosinophils % Basophils % Nucleated Red 0.0 Blood Cells % Immature 0.180 H Granulocytes # Neutrophils # Neutrophils # 12.8 H (Manual) Band Neutrophils 1.4 H # Lymphocytes # Monocytes # Monocytes # 0.2 L (Manual) Eosinophils # Basophils # Nucleated Red Blood Cells # Platelet NORMAL Estimate Giant Platelets 1 H Poikilocytosis 3+ Ovalocytes 1+ Sodium Level 144 Potassium Level 4.5 Chloride Level 112 H Carbon Dioxide 25 Level Anion Gap 7 Blood Urea 57 H Nitrogen Creatinine 2.40 H Est Glomerular Filtrat Rate mL/min Glucose Level 125 # Calcium Level 8.0 L Phosphorus Level 4.2 Magnesium Level 2.4 Blood Gas Blood arterial Specimen Source Arterial Blood 09/01/2018 7:45:15 Date Drawn AM Arterial Blood 7.328 L pH (Temp corrected) Arterial Blood 44.7 pCO2 (Temp correct) Arterial Blood 67.3 L pO2 (Temp corrected) Arterial Blood 22.9 HCO3 Arterial Blood -3.0 Base Excess Arterial Blood 92.1 L Oxygen Saturatio n Domenico Test ACCEPTAB Arterial Blood Right Radial Gas Puncture Site Arterial 0.6 Blood Carboxyhem oglobin Arterial Blood 0 Methemoglobin Blood Gas A-a O2 130.3 H Differential Oxyhemoglobin 91.5 L Percent Blood Gas 37.0 Temperature Blood Gas 24.0 Respiration Rate Blood Gas Actual 29 Respiration Rate Blood Gas MASK - BIPAP Modality FiO2 35.0 Blood Gas 10 Pressure Support Blood Gas 15 IPAP/EPAP Ratio Blood Gas TM Notified Whom Blood Gas 09/01/2018 8:09:08 Notified Time AM Medications Medication Current Medications IV Flush (NS 3 ml) 3 ml PER PROTOCOL IV ; Start 08/29/18 at 06:00 Ondansetron HCl (Zofran Inj) 4 mg Q6H PRN IV NAUSEA/VOMITING Last administered on 08/31/18 05:02; Admin Dose 4 MG; Start 08/29/18 at 06:00 Acetaminophen (Tylenol Tab) 650 mg Q6H PRN PO .PAIN 1-3 OR TEMP; Start 08/29/18 at 06:00 Docusate Sodium (Colace) 100 mg Q12H PRN PO .CONSTIPATION Last administered on 08/30/18 21:37; Admin Dose 100 MG; Start 08/29/18 at 06:00 Magnesium Hydroxide (Milk Of Mag) 30 ml DAILY PRN PO .CONSTIPATION; Start 08/29/18 at 06:00 Pantoprazole (Protonix Tab) 40 mg DAILY@06 PO Last administered on 09/01/18 05:15; Admin Dose 40 MG; Start 08/29/18 at 06:00 Albuterol/ Ipratropium (Duoneb) 3 ml Q4H RESP THERAPY HHN Last administered on 09/01/18 13:28; Admin Dose 3 ML; Start 08/29/18 at 09:00 Albuterol/ Ipratropium (Duoneb) 3 ml Q2H RESP THERAPY PRN HHN SHORTNESS OF BREATH Last administered on 08/31/18 10:48; Admin Dose 3 ML; Start 08/29/18 at 06:30 Azithromycin 250 ml @ 250 mls/hr DAILY IVPB Last administered on 09/01/18 08:41; Admin Dose 250 MLS/HR; Start 08/29/18 at 09:00 Cefepime HCl 50 ml @ 100 mls/hr Q24H IVPB Last administered on 09/01/18 13:27; Admin Dose 100 MLS/HR; Start 08/29/18 at 12:00 Apixaban (Eliquis) 2.5 mg BID PO Last administered on 09/01/18 08:43; Admin Dose 2.5 MG; Start 08/29/18 at 11:00 Alprazolam (Xanax) 0.5 mg QHS PO Last administered on 6/3/19at 20:47; Admin Dose 0.5 MG; Start 08/29/18 at 21:00 Amiodarone HCl (Cordarone) 200 mg DAILY PO Last administered on 09/01/18at 08:44; Admin Dose 200 MG; Start 08/29/18 at 11:00 Escitalopram Oxalate (Lexapro) 20 mg DAILY PO Last administered on 09/01/18at 08:43; Admin Dose 20 MG; Start 08/30/18 at 09:00 Methylprednisolone Sodium Succinate (Solu-Medrol) 40 mg Q8 IV Last administered on 09/01/18at 05:15; Admin Dose 40 MG; Start 08/30/18 at 22:00 Vancomycin HCl (Vanco Iv Per Pharmacy) VANCOMYCIN PER PHARMACY PER PROTOCOL XX ; Start 08/31/18 at 11:30 Vancomycin HCl 1.25 gm/Sodium Chloride 250 ml @ 83.333 mls/ hr Q48H IVPB ; Start 09/02/18 at 01:00 Docusate Sodium (Colace) 100 mg BID PO Last administered on 09/01/18at 08:42; Admin Dose 100 MG; Start 08/31/18 at 13:30 TAYLOR RIZZO NP Sep 01, 2018 14:00
[2018-09-01] MEDS: ALPRAZOLAM 0.5 MG TAB PO SCH (21:19)
[2018-09-02] VITALS (34 sets, daily range): BP systolic 125–166; BP diastolic 54–108; PULSE 69–99; RESP 21–38
[2018-09-02] MEDS ORDERED: VANCOMYCIN HCL 1.25 GM in SOD CHLORIDE 0.9% 250 ML IVPB SCH (01:00)
[2018-09-02] MEDS: ALBUTEROL/IPRATROPIUM (NEB) 3 ML AMP HHN SCH ×6 (01:11→20:05)
[2018-09-02] MEDS: PANTOPRAZOLE (EC) 40 MG TAB PO SCH (05:16)
[2018-09-02] MEDS: METHYLPREDNISOLONE 40 MG INJ IV SCH ×3 (05:17→21:25)
--- NOTE | 2018-09-02 08:16 | CONS ---
Consult Date/Type/Reason Admit Date/Time Aug 29, 2018 at 05:45 Initial Consult Date 08/30/18 Type of Consult Pulmonary Date/Time of Note DATE: 09/02/18 TIME: 08:15 Subjective Patient continues bilevel ventilation chest x-ray shows ongoing bilateral infiltrates. Awake and alert currently hemodynamically stable. Objective Vital Signs Date Temp Pulse Resp B/P (MAP) Pulse Ox O2 O2 Flow FiO2 Time Delivery Rate 09/02/18 76 26 144/64 96 BIPAP 07:00 (90) 09/02/18 40 05:25 09/02/18 8.0 05:10 09/02/18 97.5 04:00 Intake and Output 09/01/18 09/01/18 09/02/18 1515:00 23:00 07:00 IntakeIntake Total 120 ml 400 ml 350.00 ml OutputOutput Total 295 ml 245 ml 400 ml BalanceBalance -175 ml 155 ml -50.00 ml Exam GENERAL: Elderly gentleman on bilevel ventilation VITAL SIGNS: per chart NECK: Supple. No JVD or lymphadenopathy. CARDIAC EXAM: S1, S2. No added sounds or murmurs. CHEST: Diminished air entry bilaterally with few rales ABDOMEN: Soft, nontender. No guarding or rebound. EXTREMITIES: No cyanosis, clubbing or edema. NEUROLOGIC: Generalized weakness. No focal deficits. Vent Setting Fraction of Inspired Oxygen pe: 60 Results/Medications Result Diagram: 09/02/18 0445 09/02/18 0445 Results 24 hrs Laboratory Tests Test 09/02/18 04:45 09/02/18 07:00 White Blood Count 11.7 H Red Blood Count 3.36 L Hemoglobin 10.7 L Hematocrit 33.0 L Mean Corpuscular Volume 98.2 Mean Corpuscular Hemoglobin 31.8 Mean Corpuscular Hemoglobin Concent 32.4 Red Cell Distribution Width 14.3 Platelet Count 181 Mean Platelet Volume 11.2 H Immature Granulocytes % 0.300 Neutrophils % 92.2 H Lymphocytes % 2.9 L Monocytes % 4.5 Eosinophils % 0.0 Basophils % 0.1 Nucleated Red Blood Cells % 0.0 Immature Granulocytes # 0.040 H Neutrophils # 10.7 H Lymphocytes # 0.3 L Monocytes # 0.5 Eosinophils # 0.0 Basophils # 0.0 Nucleated Red Blood Cells # 0.0 Sodium Level 144 Potassium Level 4.9 Chloride Level 113 H Carbon Dioxide Level 26 Anion Gap 5 Blood Urea Nitrogen 67 H Creatinine 2.18 H Est Glomerular Filtrat Rate mL/min Glucose Level 133 Calcium Level 8.1 L Phosphorus Level 3.5 Magnesium Level 2.7 H Blood Gas Specimen Source Blood arterial Arterial Blood Date Drawn 09/02/2018 6:53:47 AM Arterial Blood pH (Temp corrected) 7.356 Arterial Blood pCO2 (Temp correct) 45.6 H Arterial Blood pO2 (Temp corrected) 67.1 L Arterial Blood HCO3 25.0 Arterial Blood Base Excess -0.8 Arterial Blood Oxygen Saturation 92.3 L Domenico Test ACCEPTAB Arterial Blood Gas Puncture Site Right Radial Arterial Blood Carboxyhemoglobin 0.3 Arterial Blood Methemoglobin 0.2 Blood Gas A-a O2 Differential 165.7 H Oxyhemoglobin Percent 91.8 L Blood Gas Temperature 37.0 Blood Gas Respiration Rate 24.0 Blood Gas Actual Respiration Rate 26 Blood Gas Modality MASK - BIPAP FiO2 40.0 Blood Gas Pressure Support 10 Blood Gas IPAP/EPAP Ratio 15 Blood Gas Notified Whom TM Blood Gas Notified Time 09/02/2018 7:13:33 AM Medications Current Medications IV Flush (NS 3 ml) 3 ml PER PROTOCOL IV ; Start 08/29/18 at 06:00 Ondansetron HCl (Zofran Inj) 4 mg Q6H PRN IV NAUSEA/VOMITING Last administered on 08/31/18at 05:02; Admin Dose 4 MG; Start 08/29/18 at 06:00 Acetaminophen (Tylenol Tab) 650 mg Q6H PRN PO .PAIN 1-3 OR TEMP; Start 08/29/18 at 06:00 Docusate Sodium (Colace) 100 mg Q12H PRN PO .CONSTIPATION Last administered on 08/30/18at 21:37; Admin Dose 100 MG; Start 08/29/18 at 06:00 Magnesium Hydroxide (Milk Of Mag) 30 ml DAILY PRN PO .CONSTIPATION Last administered on 09/02/18at 05:16; Admin Dose 30 ML; Start 08/29/18 at 06:00 Pantoprazole (Protonix Tab) 40 mg DAILY@06 PO Last administered on 09/02/18at 05:16; Admin Dose 40 MG; Start 08/29/18 at 06:00 Albuterol/ Ipratropium (Duoneb) 3 ml Q4H RESP THERAPY HHN Last administered on 09/02/18 05:06; Admin Dose 3 ML; Start 08/29/18 at 09:00 Albuterol/ Ipratropium (Duoneb) 3 ml Q2H RESP THERAPY PRN HHN SHORTNESS OF BREATH Last administered on 08/31/18 10:48; Admin Dose 3 ML; Start 08/29/18 at 06:30 Azithromycin 250 ml @ 250 mls/hr DAILY IVPB Last administered on 09/01/18 08:41; Admin Dose 250 MLS/HR; Start 08/29/18 at 09:00 Cefepime HCl 50 ml @ 100 mls/hr Q24H IVPB Last administered on 09/01/18 13:27; Admin Dose 100 MLS/HR; Start 08/29/18 at 12:00 Apixaban (Eliquis) 2.5 mg BID PO Last administered on 09/01/18 21:18; Admin Dose 2.5 MG; Start 08/29/18 at 11:00 Alprazolam (Xanax) 0.5 mg QHS PO Last administered on 09/01/18 21:19; Admin Dose 0.5 MG; Start 08/29/18 at 21:00 Amiodarone HCl (Cordarone) 200 mg DAILY PO Last administered on 09/01/18 08:44; Admin Dose 200 MG; Start 08/29/18 at 11:00 Escitalopram Oxalate (Lexapro) 20 mg DAILY PO Last administered on 09/01/18 08:43; Admin Dose 20 MG; Start 08/30/18 at 09:00 Methylprednisolone Sodium Succinate (Solu-Medrol) 40 mg Q8 IV Last administered on 09/02/18 05:17; Admin Dose 40 MG; Start 08/30/18 at 22:00 Vancomycin HCl (Vanco Iv Per Pharmacy) VANCOMYCIN PER PHARMACY PER PROTOCOL XX ; Start 08/31/18 at 11:30 Vancomycin HCl 1.25 gm/Sodium Chloride 250 ml @ 83.333 mls/ hr Q48H IVPB Last administered on 09/02/18 01:46; Admin Dose 83.333 MLS/HR; Start 09/02/18 at 01:00 Docusate Sodium (Colace) 100 mg BID PO Last administered on 09/01/18 21:18; Admin Dose 100 MG; Start 08/31/18 at 13:30 Assessment/Plan Hospital Course (Demo Recall) Assessment 1. Hypoxemic respiratory failure likely secondary to mild CHF with left-sided pneumonia possibly healthcare associated 2. Questionable component of aspiration 3. Renal insufficiency 4. Encephalopathy secondary to above toxic metabolic Plan 1. Continue antibiotics 2. Continue bilevel ventilation transition to nasal cannula O2 when possible 3. Aspiration precautions 4. Additional Lasix this morning. Renal recommendations. Critical care time 40 minutes OLIVE ANDREWS MD, [facility] Sep 02, 2018 08:16
[2018-09-02] MEDS ORDERED: FUROSEMIDE 40 MG INJ IV ONE (08:30)
[2018-09-02] MEDS: ESCITALOPRAM 10 MG TAB PO SCH (09:13)
[2018-09-02] MEDS: AZITHROMYCIN 500MG/NS (PMX) 250 ML IVPB SCH (09:13)
[2018-09-02] MEDS: AMIODARONE 200 MG TAB PO SCH (09:13)
[2018-09-02] MEDS: APIXABAN 5 MG TABLET PO SCH ×2 (09:13→20:21)
[2018-09-02] MEDS: DOCUSATE SODIUM 100 MG CAP PO SCH ×2 (09:13→20:21)
--- NOTE | 2018-09-02 12:00 | PN ---
DATE: 09/02/2018 SUBJECTIVE: The patient remains in serious condition on BiPAP. No other acute events noted. No hem optysis, hematemesis or hematochezia. OBJECTIVE: VITAL SIGNS: Blood pressure is 144/64, respiration is 26, pulse 76, temperature 97.5. HEENT: Head is normocephalic. NECK: Supple. HEART: Regular rate. LUNGS: Show diminished breath sounds at the base. ABDOMEN: Soft, nontender to palpation without rebound or guarding. EXTREMITIES: Negative for clubbing, cyanosis, no edema. DERMATOLOGIC: No rashes. MUSCULOSKELETAL: No joint effusions. NEUROLOGIC: No change in exam. MEDICATIONS: The patient's medications have been reviewed. LABORATORY DATA: Has been reviewed. IMAGING STUDIES: Have been reviewed. ASSESSMENT AND PLAN: 1. Nonoliguric acute kidney injury with unknown baseline creatinine. Possible chronic kidney diseas e. Etiology of acute kidney injury was secondary to hemodynamics, volume depletion. The patient's u rine function has been improving with supportive care. At this point, would continue current treatme nt plan. Continue to renally dose all meds, avoid nephrotoxins, monitor closely. 2. Anemia. Monitor hemoglobin and hematocrit levels. 3. Mineral bone disorder, monitor calcium and phosphorus levels. 4. Sepsis secondary to pneumonia. Continue current antibiotic regimen. 5. Acute hypoxemic respiratory failure secondary to pneumonia, reactive airway disease. Continue cu rrent medical management. Continue BiPAP, nebulizer, steroids, antibiotics. Follow up with pulmonar y. 6. Acute encephalopathy, etiology is toxic metabolic. Mental status is improving. 7. Benign prostatic hypertrophy. Suprapubic catheter. Continue to monitor. 8. History of diastolic heart failure. The patient currently compensated. Continue to observe. No need for diuretic therapy at this time. Dictated By: ANGELA BALLARD DO NR/NTS Conf#: [id number] DID#: [id number] CC: SERGIO TREVINO MD; OLIVE ANDREWS MD;*EndCC*
[2018-09-02] MEDS ORDERED: LORAZEPAM 0.5 MG TAB PO PRN (13:00)
[2018-09-02] MEDS: CEFEPIME 2GM/50 ML (PMX) 50 ML IVPB SCH (15:08)
--- NOTE | 2018-09-02 15:33 | CONS ---
Assessment/Plan Assessment/Plan Hospital Course (Demo Recall) No acute changes overnight patient remains on BiPAP no fevers looks comfortable WBC 11.7 platelets 181 neutrophils 92.2 BUN 67 creatinine 2.18 Chest x-ray this morning revealed patchy multifocal left greater than right alveolar infiltrates/pneumonia, unchanged Microbiology: Cultures since admission negative. Urinalysis was positive for leukocyte Estrace WBCs and few bacteria. Chest x-ray this morning revealed worsening left lung infiltrate. Renal ultrasound revealed markedly limited e xamination due to patient's inability to position for examination Antimicrobials: Vancomycin, cefepime, Zithromax Physical examination: Well-developed well-nourished elderly man who is awake in no distress. Head atraumatic normocephalic sclera nonicteric vehicle mucosa dry neck is supple chest rise symmetrical breath sounds with bilateral rhonchi. Heart: S1-S2. Abdomen soft bowel sounds present. Assessment: 1. Acute hypoxemic respiratory failure 2. Pneumonia 3. Mild CHF 4. Urinary tract infection as per urinalysis 5. Acute kidney injury Plan: Stable on BiPAP, continue antibiotics, monitor renal function Consultation Date/Type/Reason Admit Date/Time Aug 29, 2018 at 05:45 Initial Consult Date 08/30/18 Type of Consult id Date/Time of Note DATE: 09/02/18 TIME: 15:32 Exam/Review of Systems Exam Vitals Vital Signs Date Temp Pulse Resp B/P (MAP) Pulse Ox O2 O2 Flow FiO2 Time Delivery Rate 09/02/18 77 24 138/56 97 BIPAP 15:00 (83) 09/02/18 98.3 12:00 09/02/18 40 05:25 09/02/18 8.0 05:10 Intake and Output 09/01/18 09/01/18 09/02/18 1515:00 23:00 07:00 IntakeIntake Total 120 ml 400 ml 350.00 ml OutputOutput Total 295 ml 245 ml 460 ml BalanceBalance -175 ml 155 ml -110.00 ml Results Result Diagram: 09/02/18 0445 09/02/18 0445 Results 24hrs Laboratory Tests Test 09/02/18 04:45 09/02/18 07:00 White Blood Count 11.7 H Red Blood Count 3.36 L Hemoglobin 10.7 L Hematocrit 33.0 L Mean Corpuscular Volume 98.2 Mean Corpuscular Hemoglobin 31.8 Mean Corpuscular Hemoglobin Concent 32.4 Red Cell Distribution Width 14.3 Platelet Count 181 Mean Platelet Volume 11.2 H Immature Granulocytes % 0.300 Neutrophils % 92.2 H Lymphocytes % 2.9 L Monocytes % 4.5 Eosinophils % 0.0 Basophils % 0.1 Nucleated Red Blood Cells % 0.0 Immature Granulocytes # 0.040 H Neutrophils # 10.7 H Lymphocytes # 0.3 L Monocytes # 0.5 Eosinophils # 0.0 Basophils # 0.0 Nucleated Red Blood Cells # 0.0 Sodium Level 144 Potassium Level 4.9 Chloride Level 113 H Carbon Dioxide Level 26 Anion Gap 5 Blood Urea Nitrogen 67 H Creatinine 2.18 H Est Glomerular Filtrat Rate mL/min Glucose Level 133 Calcium Level 8.1 L Phosphorus Level 3.5 Magnesium Level 2.7 H Blood Gas Specimen Source Blood arterial Arterial Blood Date Drawn 09/02/2018 6:53:47 AM Arterial Blood pH (Temp corrected) 7.356 Arterial Blood pCO2 (Temp correct) 45.6 H Arterial Blood pO2 (Temp corrected) 67.1 L Arterial Blood HCO3 25.0 Arterial Blood Base Excess -0.8 Arterial Blood Oxygen Saturation 92.3 L Domenico Test ACCEPTAB Arterial Blood Gas Puncture Site Right Radial Arterial Blood Carboxyhemoglobin 0.3 Arterial Blood Methemoglobin 0.2 Blood Gas A-a O2 Differential 165.7 H Oxyhemoglobin Percent 91.8 L Blood Gas Temperature 37.0 Blood Gas Respiration Rate 24.0 Blood Gas Actual Respiration Rate 26 Blood Gas Modality MASK - BIPAP FiO2 40.0 Blood Gas Pressure Support 10 Blood Gas IPAP/EPAP Ratio 15/ Blood Gas Notified Whom TM Blood Gas Notified Time 09/02/2018 7:13:33 AM Medications Medication Current Medications IV Flush (NS 3 ml) 3 ml PER PROTOCOL IV ; Start 08/29/18 at 06:00 Ondansetron HCl (Zofran Inj) 4 mg Q6H PRN IV NAUSEA/VOMITING Last administered on 08/31/18at 05:02; Admin Dose 4 MG; Start 08/29/18 at 06:00 Acetaminophen (Tylenol Tab) 650 mg Q6H PRN PO .PAIN 1-3 OR TEMP; Start 08/29/18 at 06:00 Docusate Sodium (Colace) 100 mg Q12H PRN PO .CONSTIPATION Last administered on 08/30/18 21:37; Admin Dose 100 MG; Start 08/29/18 at 06:00 Magnesium Hydroxide (Milk Of Mag) 30 ml DAILY PRN PO .CONSTIPATION Last administered on 09/02/18 05:16; Admin Dose 30 ML; Start 08/29/18 at 06:00 Pantoprazole (Protonix Tab) 40 mg DAILY@06 PO Last administered on 09/02/18 05:16; Admin Dose 40 MG; Start 08/29/18 at 06:00 Albuterol/ Ipratropium (Duoneb) 3 ml Q4H RESP THERAPY HHN Last administered on 09/02/18 13:05; Admin Dose 3 ML; Start 08/29/18 at 09:00 Albuterol/ Ipratropium (Duoneb) 3 ml Q2H RESP THERAPY PRN HHN SHORTNESS OF B REATH Last administered on 08/31/18 10:48; Admin Dose 3 ML; Start 08/29/18 at 06:30 Azithromycin 250 ml @ 250 mls/hr DAILY IVPB Last administered on 09/02/18 09:13; Admin Dose 250 MLS/HR; Start 08/29/18 at 09:00 Cefepime HCl 50 ml @ 100 mls/hr Q24H IVPB Last administered on 09/02/18 15:08; Admin Dose 100 MLS/HR; Start 08/29/18 at 12:00 Apixaban (Eliquis) 2.5 mg BID PO Last administered on 09/02/18 09:13; Admin Dose 2.5 MG; Start 08/29/18 at 11:00 Alprazolam (Xanax) 0.5 mg QHS PO Last administered on 09/01/18 21:19; Admin Dose 0.5 MG; Start 08/29/18 at 21:00 Amiodarone HCl (Cordarone) 200 mg DAILY PO Last administered on 09/02/18 09:13; Admin Dose 200 MG; Start 08/29/18 at 11:00 Escitalopram Oxalate (Lexapro) 20 mg DAILY PO Last administered on 09/02/18 09:13; Admin Dose 20 MG; Start 08/30/18 at 09:00 Methylprednisolone Sodium Succinate (Solu-Medrol) 40 mg Q8 IV Last administered on 6/5/19at 15:08; Admin Dose 40 MG; Start 08/30/18 at 22:00 Vancomycin HCl (Vanco Iv Per Pharmacy) VANCOMYCIN PER PHARMACY PER PROTOCOL XX ; Start 08/31/18 at 11:30 Vancomycin HCl 1.25 gm/Sodium Chloride 250 ml @ 83.333 mls/ hr Q48H IVPB Last administered on 09/02/18at 01:46; Admin Dose 83.333 MLS/HR; Start 09/02/18 at 01:00 Docusate Sodium (Colace) 100 mg BID PO Last administered on 09/02/18at 09:13; Admin Dose 100 MG; Start 08/31/18 at 13:30 Lorazepam (Ativan) 0.5 mg Q6H PRN PO ANXIETY; Start 09/02/18 at 13:00 TAYLOR RIZZO NP Sep 02, 2018 15:33
--- NOTE | 2018-09-02 16:43 | PN ---
DATE: 09/02/2018 SUBJECTIVE: The patient is seen. Unfortunately, he still remains on BiPAP . The patient appea rs to be anxious. Also, appetite is not very good. The patient has been coughing when eating. We w ill request a speech evaluation/swallow evaluation. The patient's chest x-ray shows multifocal infil trate. Lasix 40 x1 was given. ABG was done as well this morning, shows a pH of 7.35, pCO2 of 46, bi carb 25. Saturation is 92% on BiPAP on 12/08 with FiO2 of 40%. Overall, quite stable. PHYSICAL EXAMINATION: GENERAL: The patient is alert. BiPAP is in place. CARDIOVASCULAR: S1, S2. LUNGS: Mild rhonchi bilaterally, much improved. ABDOMEN: Soft, nontender. EXTREMITIES: Just trace edema, upper and lower extremities. LABORATORY DATA: White count is improved to 11.7, hemoglobin 10.7, hematocrit 33, platelet count of 181, neutrophils 92%, lymphs 73%. Chemistry: Sodium 144, potassium 4.9, chloride 113, bicarb 26, BU N is 67 -- high, creatinine 2.18, and he received another 40 of Lasix after that labs, calcium 8.1, m agnesium 2.7. Urinalysis was positive on 08/31 showing +2 leukocyte esterase. Random sodium was les s than 13 suggestive of prerenal azotemia. MRSA screening negative. Influenza A and B negative. Bl ood and urine cultures all negative. MEDICATIONS: 1. Vancomycin dose per Pharmacy. 2. Colace 100 b.i.d. 3. Solu-Medrol 40 IV q.8. 4. Lexapro 20 mg daily. 5. Xanax 0.5 at bedtime. 6. Cefepime 1 gram q.24 hours. 7. Eliquis 2.5 b.i.d. 8. Amiodarone 200 daily. 9. DuoNeb q.4. 10. Azithromycin 250 daily. 11. DuoNeb p.r.n. 12. Zofran p.r.n. 13. Tylenol p.r.n. 14. Colace p.r.n. 15. Milk of Magnesia. 16. Protonix 40 mg daily. ASSESSMENT AND PLAN: This is an 87-year-old [place] male with history of atrial fibrillation, hyper tension, urinary retention, low back pain, depression, who presented with 2 to 3 days of worsening sh ortness of breath and was found to have acute respiratory failure, fevers, bronchitis and pneumonia. 1. Respiratory. A chest x-ray shows multifocal pneumonia. Attempted Lasix was given. Continue bro ad-spectrum antibiotics per ID. All cultures so far negative. White count has improved. Hopefully, we can taper off the BiPAP. Anxiety may be a component of his respiratory distress and Ativan p.r.n . will be prescribed on top of nighttime Ativan. May consider antipsychotics such as low-dose Seroqu el. 2. Cardiovascular. The patient is on Eliquis for anticoagulation. Vitals remain stable otherwise. 3. Infectious disease. Being treated for urinary tract infection, pneumonia with broad-spectrum ant ibiotics. 4. Depression. Continue antidepressant. 5. Continue Protonix for gastrointestinal prophylaxis. 6. [id number] renal insufficiency. Clinically, no bartolo fluid overload state but Lasix was gi kailash by the coding assistant. We will continue to monitor. I appreciate Nephrology input. Continue to monitor in the intensive care unit. The patient needs to be monitored closely. I spoke with his nephew, Jaswant, who is aware of plan of care. We will follow. Dictated By: SERGIO CERVANTES/NEHAL Conf#: [id number] DID#: [id number]
[2018-09-02] MEDS: ALPRAZOLAM 0.5 MG TAB PO SCH (20:21)
[2018-09-02] MEDS ORDERED: MAGNESIUM CITRATE 300 ML BTL PO ONE (20:30)
[2018-09-03] VITALS (29 sets, daily range): BP systolic 128–172; BP diastolic 55–140; PULSE 62–89; RESP 18–34
[2018-09-03] MEDS: ALBUTEROL/IPRATROPIUM (NEB) 3 ML AMP HHN SCH ×4 (01:25→12:27)
[2018-09-03] MEDS: METHYLPREDNISOLONE 40 MG INJ IV SCH ×3 (05:45→21:23)
[2018-09-03] MEDS: PANTOPRAZOLE (EC) 40 MG TAB PO SCH (05:45)
--- NOTE | 2018-09-03 08:08 | CONS ---
Assessment/Plan Assessment/Plan Assessment/Plan (Daily) Chest x-ray was reviewed from today which again showing bilateral pneumonia. Assessment and recommendations; 1. Patient admitted with severe bilateral pneumonia on BiPAP at 40% FiO2 with slight interval improvement. 2. History of cardiac arrhythmia. Patient in sinus rhythm currently. 3. Mild anemia and thrombocytopenia. 4. Chronic renal insufficiency with acute injury with improving serum cr eatinine. Continue current supportive care. Consultation Date/Type/Reason Admit Date/Time Aug 29, 2018 at 05:45 Initial Consult Date 08/30/18 Type of Consult Pulmonary Patient condition is tenuous. On BiPAP. Having significant chest congestion. Take slightly yellow-tinged secretions noted on suctioning. Patient requiring deep nasotracheal suctioning. General exam; elderly male, mildly lethargic. Date/Time of Note DATE: 09/03/18 TIME: 08:06 24 HR Interval Summary Free Text/Dictation Patient's condition is tenuous at best. On BiPAP. Patient however handling nasal cannula intermittently. General exam; elderly male, awake and appropriately responsive, currently in no distress. Mildly tachypneic. Exam/Review of Systems Exam Vitals Vital Signs Date Temp Pulse Resp B/P (MAP) Pulse Ox O2 O2 Flow FiO2 Time Delivery Rate 09/03/18 79 31 167/69 100 BIPAP 06:00 (101) 09/03/18 40 05:00 09/03/18 98.4 04:00 09/02/18 5.0 20:06 Intake and Output 09/02/18 09/02/18 09/03/18 1515:00 23:00 07:00 IntakeIntake Total 670 ml 250 ml 110 ml OutputOutput Total 740 ml 350 ml 280 ml BalanceBalance -70 ml -100 ml -170 ml Exam HEENT exam; supple neck, no JVD. No lymphadenopathy. Midline trachea. No thyromegaly. On BiPAP. Chest exam; diminished breath sounds bilaterally with mild wheezing. S1-S2 audible, no murmurs. Regular rhythm. Abdomen exam; soft, nontender. No organomegaly. Bowel sounds audible. Extremity exam; no peripheral edema clubbing. Pulses 1+. NETWORK ANNOUNCER exam; no focal motor deficit. Results Result Diagram: 09/03/1824 09/03/18 0524 Results 24hrs Laboratory Tests Test 09/03/18 05:24 09/03/18 07:00 White Blood Count 10.1 Red Blood Count 3.53 L Hemoglobin 10.9 L Hematocrit 33.9 L Mean Corpuscular Volume 96.0 Mean Corpuscular Hemoglobin 30.9 Mean Corpuscular Hemoglobin Concent 32.2 Red Cell Distribution Width 14.3 Platelet Count 184 Mean Platelet Volume 11.4 H Immature Granulocytes % 0.800 H Neutrophils % 91.1 H Lymphocytes % 2.8 L Monocytes % 5.3 Eosinophils % 0.0 Basophils % 0.0 Nucleated Red Blood Cells % 0.0 Immature Granulocytes # 0.080 H Neutrophils # 9.2 H Lymphocytes # 0.3 L Monocytes # 0.5 Eosinophils # 0.0 Basophils # 0.0 Nucleated Red Blood Cells # 0.0 Sodium Level 146 H Potassium Level 4.3 Chloride Level 114 H Carbon Dioxide Level 28 Anion Gap 4 L Blood Urea Nitrogen 74 H Creatinine 2.25 H Est Glomerular Filtrat Rate mL/min Glucose Level 153 Calcium Level 8.4 Phosphorus Level 3.4 Magnesium Level 3.5 H Blood Gas Specimen Source Blood arterial Arterial Blood Date Drawn 09/03/2018 7:10:38 AM Arterial Blood pH (Temp corrected) 7.393 Arterial Blood pCO2 (Temp correct) 48.0 H Arterial Blood pO2 (Temp corrected) 68.2 L Arterial Blood HCO3 28.6 H Arterial Blood Base Excess 3.0 Arterial Blood Oxygen Saturation 92.3 L Domenico Test ACCEPTAB Arterial Blood Gas Puncture Site Right Radial Arterial Blood Carboxyhemoglobin 0.3 Arterial Blood Methemoglobin 0.2 Blood Gas A-a O2 Differential 161.8 H Oxyhemoglobin Percent 91.8 L Blood Gas Temperature 37.0 Blood Gas Respiration Rate 24.0 Blood Gas Actual Respiration Rate 24 Blood Gas Modality MASK - BIPAP FiO2 40.0 Blood Gas Pressure Support 10 Blood Gas IPAP/EPAP Ratio 15/5 Blood Gas Notified Whom TM Blood Gas Notified Time 09/03/2018 7:40:25 AM Medications Medication Current Medications IV Flush (NS 3 ml) 3 ml PER PROTOCOL IV ; Start 08/29/18 at 06:00 Ondansetron HCl (Zofran Inj) 4 mg Q6H PRN IV NAUSEA/VOMITING Last administered on 08/31/18at 05:02; Admin Dose 4 MG; Start 08/29/18 at 06:00 Acetaminophen (Tylenol Tab) 650 mg Q6H PRN PO .PAIN 1-3 OR TEMP; Start 08/29/18 at 06:00 Docusate Sodium (Colace) 100 mg Q12H PRN PO .CONSTIPATION Last administered on 08/30/18 21:37; Admin Dose 100 MG; Start 08/29/18 at 06:00 Magnesium Hydroxide (Milk Of Mag) 30 ml DAILY PRN PO .CONSTIPATION Last administered on 09/02/18 05:16; Admin Dose 30 ML; Start 08/29/18 at 06:00 Pantoprazole (Protonix Tab) 40 mg DAILY@06 PO Last administered on 09/03/18 05:45; Admin Dose 40 MG; Start 08/29/18 at 06:00 Albuterol/ Ipratropium (Duoneb) 3 ml Q4H RESP THERAPY HHN Last administered on 09/03/18 05:00; Admin Dose 3 ML; Start 08/29/18 at 09:00 Albuterol/ Ipratropium (Duoneb) 3 ml Q2H RESP THERAPY PRN HHN SHORTNESS OF BREATH Last administered on 08/31/18 10:48; Admin Dose 3 ML; Start 08/29/18 at 06:30 Azithromycin 250 ml @ 250 mls/hr DAILY IVPB Last administered on 09/02/18 09:13; Admin Dose 250 MLS/HR; Start 08/29/18 at 09:00 Cefepime HCl 50 ml @ 100 mls/hr Q24H IVPB Last administered on 09/02/18 15:08; Admin Dose 100 MLS/HR; Start 08/29/18 at 12:00 Apixaban (Eliquis) 2.5 mg BID PO Last administered on 09/02/18 20:21; Admin Dose 2.5 MG; Start 08/29/18 at 11:00 Alprazolam (Xanax) 0.5 mg QHS PO Last administered on 09/02/18 20:21; Admin Dose 0.5 MG; Start 08/29/18 at 21:00 Amiodarone HCl (Cordarone) 200 mg DAILY PO Last administered on 09/02/18 09:13; Admin Dose 200 MG; Start 08/29/18 at 11:00 Escitalopram Oxalate (Lexapro) 20 mg DAILY PO Last administered on 6/5/19at 09:13; Admin Dose 20 MG; Start 08/30/18 at 09:00 Methylprednisolone Sodium Succinate (Solu-Medrol) 40 mg Q8 IV Last administered on 09/03/18at 05:45; Admin Dose 40 MG; Start 08/30/18 at 22:00 Vancomycin HCl (Vanco Iv Per Pharmacy) VANCOMYCIN PER PHARMACY PER PROTOCOL XX ; Start 08/31/18 at 11:30 Vancomycin HCl 1.25 gm/Sodium Chloride 250 ml @ 83.333 mls/ hr Q48H IVPB Last administered on 09/02/18at 01:46; Admin Dose 83.333 MLS/HR; Start 09/02/18 at 01:00 Docusate Sodium (Colace) 100 mg BID PO Last administered on 09/02/18at 20:21; Admin Dose 100 MG; Start 08/31/18 at 13:30 Lorazepam (Ativan) 0.5 mg Q6H PRN PO ANXIETY; Start 09/02/18 at 13:00 Dextrose 1,000 ml @ 50 mls/hr Q20H IV ; Start 09/03/18 at 08:00 JUDE GODINEZ Sep 03, 2018 08:08
--- NOTE | 2018-09-03 08:31 | PN ---
DATE: 09/03/2018 SUBJECTIVE: The patient remains on BiPAP. Urinary output has been marginal. No other events noted. No hemoptysis, hematemesis, hematochezia. OBJECTIVE: VITAL SIGNS: Blood pressure is 167/69, respirations 21, pulse 79, temperature 98.4. HEENT: Head is normocephalic. NECK: Supple. HEART: Regular rate. LUNGS: Show diminished breath sounds at the base. ABDOMEN: Soft, nontender to palpation without rebound or guarding. EXTREMITIES: Negative for clubbing, cyanosis, no edema. DERMATOLOGIC: No rashes. MUSCULOSKELETAL: No joint effusion. NEUROLOGIC: No change in exam. MEDICATIONS: Reviewed. LABORATORY DATA: Has been reviewed. ASSESSMENT AND PLAN: 1. Nonoliguric acute kidney injury on top of chronic kidney disease with unknown baseline creatinine . Etiology of acute kidney injury is secondary to hemodynamics. Renal function has been fluctuating but overall stable. The patient did receive Lasix x1 yesterday. Recommendation at this point is to continue current treatment plan, supportive care, renally dose all meds. Will start the patient on gentle IV hydration with hypotonic fluid as he is dehydrated. Monitor closely. 2. Hypernatremia. The patient has a free water deficit of approximately 2 liters. Will start the p atient on hypertonic fluid and monitor. 3. Anemia. Monitor hemoglobin and hematocrit levels. 4. Mineral bone disorder. Monitor calcium and phosphorus levels. 5. Sepsis secondary to pneumonia. Continue current antibiotic regimen. 6. Acute hypoxemic respiratory failure secondary to pneumonia, reactive airway disease. Continue me dical management. Continue BiPAP, nebulizer, steroids, antibiotics. Follow up with pulmonary. 7. Acute encephalopathy. Etiology is toxic metabolic. 8. Benign prostatic hypertrophy. Continue to monitor. 9. History of diastolic heart failure. The patient is currently compensated Dictated By: ANGELA BALLARD DO NR/NTS Conf#: [id number] DID#: [id number] CC: SERGIO TREVINO MD;*EndCC*
[2018-09-03] MEDS: APIXABAN 5 MG TABLET PO SCH (09:00)
[2018-09-03] MEDS: DOCUSATE SODIUM 100 MG CAP PO SCH ×2 (09:00→21:00)
[2018-09-03] MEDS: AMIODARONE 200 MG TAB PO SCH (09:00)
[2018-09-03] MEDS: ESCITALOPRAM 10 MG TAB PO SCH (09:00)
[2018-09-03] MEDS: DEXTROSE 5% 1,000 ML IV SCH (09:58)
[2018-09-03] MEDS: AZITHROMYCIN 500MG/NS (PMX) 250 ML IVPB SCH (09:58)
[2018-09-03] MEDS ORDERED: BISACODYL 10 MG SUPP PR PRN (12:00)
[2018-09-03] MEDS: CEFEPIME 2GM/50 ML (PMX) 50 ML IVPB SCH (12:56)
[2018-09-03] MEDS ORDERED: BISACODYL 10 MG SUPP PR ONE (13:00)
--- NOTE | 2018-09-03 13:29 | CONS ---
Assessment/Plan Assessment/Plan Hospital Course (Demo Recall) Patient remains on BiPAP no fevers overnight WBC 10.1 H&H 10.9 and 33.9 platelets 184 neutrophils 91.1 BUN 74 creatinine 2.25 Chest x-ray this morning revealed increase in multifocal bilateral upper lobe predominant opacities concerning for multifocal pneumonia Microbiology: Cultures since admission negative. Urinalysis was positive for leukocyte Estrace WBCs and few bacteria. Chest x-ray this morning revealed worsening left lung infiltrate. Renal ultrasound revealed markedly limited e xamination due to patient's inability to position for examination Antimicrobials: Vancomycin, cefepime, Zithromax Physical examination: Well-developed well-nourished elderly man who is awake in no distress. Head atraumatic normocephalic sclera nonicteric vehicle mucosa dry neck is supple chest rise symmetrical breath sounds with bilateral rhonchi. Heart: S1-S2. Abdomen soft bowel sounds present. Assessment: 1. Acute hypoxemic respiratory failure 2. Pneumonia 3. Mild CHF 4. Urinary tract infection as per urinalysis 5. Acute kidney injury Plan: Remains stable on BiPAP, continue antibiotics, steroids, follow pulmonary recommendations, change Cefepime to Merrem Consultation Date/Type/Reason Admit Date/Time Aug 29, 2018 at 05:45 Initial Consult Date 08/30/18 Type of Consult id Date/Time of Note DATE: 09/03/18 TIME: 13:25 Exam/Review of Systems Exam Vitals Vital Signs Date Temp Pulse Resp B/P (MAP) Pulse Ox O2 O2 Flow FiO2 Time Delivery Rate 09/03/18 84 32 162/105 95 High Flow 13:01 (124) 09/03/18 98.6 12:00 09/03/18 40 05:00 09/02/18 5.0 20:06 Intake and Output 09/02/18 09/02/18 09/03/18 1414:59 22:59 06:59 IntakeIntake Total 670 ml 250 ml 110 ml OutputOutput Total 810 ml 360 ml 310 ml BalanceBalance -140 ml -110 ml -200 ml Results Result Diagram: 09/03/18 0524 09/03/18 0524 Results 24hrs Laboratory Tests Test 09/03/18 05:24 09/03/18 07:00 White Blood Count 10.1 Red Blood Count 3.53 L Hemoglobin 10.9 L Hematocrit 33.9 L Mean Corpuscular Volume 96.0 Mean Corpuscular Hemoglobin 30.9 Mean Corpuscular Hemoglobin Concent 32.2 Red Cell Distribution Width 14.3 Platelet Count 184 Mean Platelet Volume 11.4 H Immature Granulocytes % 0.800 H Neutrophils % 91.1 H Lymphocytes % 2.8 L Monocytes % 5.3 Eosinophils % 0.0 Basophils % 0.0 Nucleated Red Blood Cells % 0.0 Immature Granulocytes # 0.080 H Neutrophils # 9.2 H Lymphocytes # 0.3 L Monocytes # 0.5 Eosinophils # 0.0 Basophils # 0.0 Nucleated Red Blood Cells # 0.0 Sodium Level 146 H Potassium Level 4.3 Chloride Level 114 H Carbon Dioxide Level 28 Anion Gap 4 L Blood Urea Nitrogen 74 H Creatinine 2.25 H Est Glomerular Filtrat Rate mL/min Glucose Level 153 Calcium Level 8.4 Phosphorus Level 3.4 Magnesium Level 3.5 H Blood Gas Specimen Source Blood arterial Arterial Blood Date Drawn 09/03/2018 7:10:38 AM Arterial Blood pH (Temp corrected) 7.393 Arterial Blood pCO2 (Temp correct) 48.0 H Arterial Blood pO2 (Temp corrected) 68.2 L Arterial Blood HCO3 28.6 H Arterial Blood Base Excess 3.0 Arterial Blood Oxygen Saturation 92.3 L Domenico Test ACCEPTAB Arterial Blood Gas Puncture Site Right Radial Arterial Blood Carboxyhemoglobin 0.3 Arterial Blood Methemoglobin 0.2 Blood Gas A-a O2 Differential 161.8 H Oxyhemoglobin Percent 91.8 L Blood Gas Temperature 37.0 Blood Gas Respiration Rate 24.0 Blood Gas Actual Respiration Rate 24 Blood Gas Modality MASK - BIPAP FiO2 40.0 Blood Gas Pressure Support 10 Blood Gas IPAP/EPAP Ratio 15/5 Blood Gas Notified Whom TM Blood Gas Notified Time 09/03/2018 7:40:25 AM Medications Medication Current Medications IV Flush (NS 3 ml) 3 ml PER PROTOCOL IV ; Start 08/29/18 at 06:00 Ondansetron HCl (Zofran Inj) 4 mg Q6H PRN IV NAUSEA/VOMITING Last administered on 08/31/18at 05:02; Admin Dose 4 MG; Start 08/29/18 at 06:00 Acetaminophen (Tylenol Tab) 650 mg Q6H PRN PO .PAIN 1-3 OR TEMP; Start 08/29/18 at 06:00 Docusate Sodium (Colace) 100 mg Q12H PRN PO .CONSTIPATION Last administered on 08/30/18 21:37; Admin Dose 100 MG; Start 08/29/18 at 06:00 Magnesium Hydroxide (Milk Of Mag) 30 ml DAILY PRN PO .CONSTIPATION Last administered on 09/02/18 05:16; Admin Dose 30 ML; Start 08/29/18 at 06:00 Pantoprazole (Protonix Tab) 40 mg DAILY@06 PO Last administered on 09/03/18 05:45; Admin Dose 40 MG; Start 08/29/18 at 06:00 Albuterol/ Ipratropium (Duoneb) 3 ml Q4H RESP THERAPY HHN Last administered on 09/03/18 12:27; Admin Dose 3 ML; Start 08/29/18 at 09:00 Albuterol/ Ipratropium (Duoneb) 3 ml Q2H RESP THERAPY PRN HHN SHORTNESS OF BREATH Last administered on 08/31/18 10:48; Admin Dose 3 ML; Start 08/29/18 at 06:30 Azithromycin 250 ml @ 250 mls/hr DAILY IVPB Last administered on 09/03/18 09:58; Admin Dose 250 MLS/HR; Start 08/29/18 at 09:00 Cefepime HCl 50 ml @ 100 mls/hr Q24H IVPB Last administered on 09/03/18 12:56; Admin Dose 100 MLS/HR; Start 08/29/18 at 12:00 Apixaban (Eliquis) 2.5 mg BID PO Last administered on 09/02/18 20:21; Admin Dose 2.5 MG; Start 08/29/18 at 11:00 Alprazolam (Xanax) 0.5 mg QHS PO Last administered on 09/02/18 20:21; Admin Dose 0.5 MG; Start 08/29/18 at 21:00 Amiodarone HCl (Cordarone) 200 mg DAILY PO Last administered on 09/02/18 09:13; Admin Dose 200 MG; Start 08/29/18 at 11:00 Escitalopram Oxalate (Lexapro) 20 mg DAILY PO Last administered on 09/02/18 09:13; Admin Dose 20 MG; Start 08/30/18 at 09:00 Methylprednisolone Sodium Succinate (Solu-Medrol) 40 mg Q8 IV Last administered on 09/03/18at 05:45; Admin Dose 40 MG; Start 08/30/18 at 22:00 Vancomycin HCl (Vanco Iv Per Pharmacy) VANCOMYCIN PER PHARMACY PER PROTOCOL XX ; Start 08/31/18 at 11:30 Vancomycin HCl 1.25 gm/Sodium Chloride 250 ml @ 83.333 mls/ hr Q48H IVPB Last administered on 09/02/18at 01:46; Admin Dose 83.333 MLS/HR; Start 09/02/18 at 01:00 Docusate Sodium (Colace) 100 mg BID PO Last administered on 09/02/18at 20:21; Admin Dose 100 MG; Start 08/31/18 at 13:30 Lorazepam (Ativan) 0.5 mg Q6H PRN PO ANXIETY; Start 09/02/18 at 13:00 Dextrose 1,000 ml @ 50 mls/hr Q20H IV Last administered on 09/03/18at 09:58; Admin Dose 50 MLS/HR; Start 09/03/18 at 08:00 Bisacodyl (Dulcolax Supp) 10 mg DAILY PRN [place] CONSTIPATION; Start 09/03/18 at 12:00 Miscellaneous Information (*Rx Drug Level Order Reminder*) VANCO TROUGH @ 0,000 ON... 0000 ONCE XX ; Start 09/04/18 at 00:00; Stop 09/04/18 at 00:01 TAYLOR RIZZO NP Sep 03, 2018 13:29
[2018-09-03] MEDS ORDERED: SOD CHLORIDE 0.9% 500 ML IV ONE (13:30)
--- NOTE | 2018-09-03 14:11 | PN ---
DATE: 09/03/2018 SUBJECTIVE: The patient was seen. Unfortunately, he is in respiratory distress and tachypneic as we attempted earlier to put him on high flow oxygen. The patient is not doing well with that. We will put him back on the BiPAP and see how he does. He will get ABG again. If the patient continued to be a tachypneic, we may have to intubate him. Case was discussed with his nephew. In the meantime, we will keep him n.p.o. PHYSICAL EXAMINATION: VITAL SIGNS: Temperature 98.6, pulse 84, respirations up to 32, blood pressure 162/105, saturation 9 5%. GENERAL: The patient is in no acute distress, anxious. CARDIOVASCULAR: S1, S2. LUNGS: Rhonchi bilaterally. ABDOMEN: Soft. EXTREMITIES: No clubbing, cyanosis or edema. LABORATORY DATA: White count 10.1, hemoglobin 10.9, hematocrit 34, platelet count of 184, neutrophil 91%, lymphocytes 3%. Chemistry: Sodium is 146, potassium 4.3, chloride 114, bicarbonate 28, BUN 74 , creatinine 2.25, glucose 153. Again, sodium in the urine was less than 13 suggestive of prerenal a zotemia. ABG done at 7:00 a.m. shows a pH of 7.39, pCO2 of 48, bicarbonate is 29, pO2 of 68%, O2 sat is 92%. This is on 40% FiO2 so ABG is not worse. DIAGNOSTIC DATA: Chest x-ray unfortunately shows interval increase in multifocal bilateral upper lob e predominant pulmonary opacity consistent with multifocal pneumonia. MEDICATIONS: Include: 1. Dulcolax as directed. 2. D5W 50 mL an hour. Given a bolus of normal saline at 500 mL x1. He does not appear to be fluid overload to me. More like, it is infectious process, acute bronchitis and pneumonia picture. 3. Vancomycin dose per pharmacy. 4. Colace 100 b.i.d. 5. Solu-Medrol 40 IV q.8. 6. Lexapro 20 mg daily. 7. Xanax 0.5 at bedtime. 8. Cefepime 1 gram q.24 hours. 9. Eliquis 2.5 b.i.d. 10. Amiodarone 200 daily. 11. Azithromycin daily. 12. DuoNeb as directed p.r.n. 13. Zofran p.r.n. 14. Tylenol p.r.n. 15. Colace p.r.n. 16. Milk of Magnesia p.r.n. 17. Protonix 40 mg daily. ASSESSMENT AND PLAN: This 87-year-old Swedish male with history of atrial fibrillation, hypertensio n, urinary retention, low back pain, depression, presents with 2 to 3 days' worsening shortness of br eath, was found to have acute respiratory failure, fever, bronchitis and pneumonia. 1. Respiratory: Chest x-ray showed multifocal pneumonia. Continue broad spectrum antibiotic. We w ill hold Lasix. Continue steroids. I would prefer hydration in the setting of sepsis and pneumonia. 2. Cardiovascular: The patient will be placed on heparin instead of Eliquis due to inability to carlotta e oral pills for now. Protonix to be placed IV as well. 3. Depression. Continue antidepressant. 4. Acute on chronic renal insufficiency, worsening with diuretic and dysphagia. We will give him a bolus of fluids and continue fluids per Dr. Nunes. Case was discussed with his nephew as the patie nt may need to be intubated. 5. Anemia. No need for transfusion for now. Observe. 6. Speech therapy to follow. 7. Condition is guarded. Continue ICU care. We will follow. Dictated By: SERGIO CERVANTES/NEHAL Conf#: [id number] DID#: [id number] CC: OLIVE ANDREWS MD;*EndCC*
[2018-09-03] MEDS ORDERED: FAMOTIDINE 20 MG INJ IV SCH (14:30)
[2018-09-03] MEDS: HEPARIN 5,000 UNIT/1 ML VIAL SC SCH ×2 (14:38→21:28)
--- NOTE | 2018-09-03 14:41 | EN ---
Date/Time of Note Date/Time of Note DATE: 09/03/18 TIME: 14:39 ER Progress Note This is an 87-year-old who was admitted to the intensive care unit currently on BiPAP. I was called as a consult to the intensive care unit to address the patient's worsening of his respiratory distress. When I arrived at bedside the patient was on a BiPAP. The patient was 100% on room air. The patient had an arterial blood gas that did show hypoxia. However the patient's vent settings were an IPAP of 15 over an EPAP of 5 and had not been altered. Given that the patient was alert awake responding and following verbal command I did feel he would benefit from change in the vent settings. He was at an FiO2 50%. This wa s increased to 100%. He was given 0.5 mg of Ativan as he did appear slightly anxious. In addition the patient was given a continuous nebulizer treatment of Xopenex. We will repeat the ABGs in 1 hour. If there is no improvement I spoke with both the patient and his nephew and we will consider intubation. I reviewed the patient's chest radiograph that did show bilateral pneumonia. On physical exam he had bilateral wheezing. ANNAMARIE MENEZES MD Sep 03, 2018 14:41
[2018-09-03] MEDS ORDERED: LORAZEPAM 2 MG INJ IV ONE (15:00)
[2018-09-03] MEDS: LEVALBUTEROL (NEB) 0.63 MG/3 ML AMP HHN SCH ×2 (18:04→20:30)
[2018-09-03] MEDS: ALPRAZOLAM 0.5 MG TAB PO SCH (21:00)
[2018-09-03] MEDS: MEROPENEM 500MG/50 ML (PMX) 50 ML IVPB SCH (21:23)
[2018-09-04] VITALS (33 sets, daily range): BP systolic 114–184; BP diastolic 47–109; PULSE 34–87; RESP 18–33
[2018-09-04] MEDS: hydrALAzine 20 MG INJ IV PRN ×2 (00:42→05:24)
[2018-09-04] MEDS: LEVALBUTEROL (NEB) 0.63 MG/3 ML AMP HHN SCH ×6 (01:06→20:09)
[2018-09-04] MEDS ORDERED: VANCOMYCIN HCL 1.5 GM in SOD CHLORIDE 0.9% 250 ML IVPB SCH (02:00)
[2018-09-04] MEDS: DEXTROSE 5% 1,000 ML IV SCH ×2 (04:00→05:30)
[2018-09-04] MEDS: FAMOTIDINE 20 MG INJ IV SCH (05:22)
[2018-09-04] MEDS: METHYLPREDNISOLONE 40 MG INJ IV SCH ×3 (05:29→21:13)
[2018-09-04] MEDS ORDERED: PANTOPRAZOLE 40 MG INJ IV SCH (06:00)
[2018-09-04] MEDS: LORAZEPAM 2 MG INJ IV PRN (06:32)
[2018-09-04] MEDS: ESCITALOPRAM 10 MG TAB PO SCH (08:31)
[2018-09-04] MEDS: AZITHROMYCIN 500MG/NS (PMX) 250 ML IVPB SCH (08:31)
[2018-09-04] MEDS: AMIODARONE 200 MG TAB PO SCH (08:31)
[2018-09-04] MEDS: DOCUSATE SODIUM 100 MG CAP PO SCH ×2 (08:31→21:00)
[2018-09-04] MEDS: MEROPENEM 500MG/50 ML (PMX) 50 ML IVPB SCH ×2 (08:31→21:13)
[2018-09-04] MEDS: HEPARIN 5,000 UNIT/1 ML VIAL SC SCH ×2 (08:36→21:17)
--- NOTE | 2018-09-04 08:47 | PN ---
DATE: 09/04/2018 SUBJECTIVE: The patient remains in serious critical condition. The patient remains on BiPAP, unable to be weaned off. No other acute events noted. No hemoptysis, hematemesis or hematochezia. OBJECTIVE: VITAL SIGNS: Blood pressure is 140/52, respirations 25, pulse 70 and temperature 96.9. HEENT: Head is normocephalic. NECK: Supple. HEART: Regular rate. LUNGS: Show diminished breath sounds at the base. ABDOMEN: Soft, nontender to palpation without rebound or guarding. EXTREMITIES: Negative for clubbing or cyanosis, no edema. DERMATOLOGIC: No rashes. MUSCULOSKELETAL: No joint effusion. NEUROLOGIC: No change in exam. MEDICATIONS: Have been reviewed. LABORATORY DATA: Has been reviewed. IMAGING STUDIES: Have been reviewed. ASSESSMENT AND PLAN: 1. Nonoliguric acute kidney injury on top of chronic kidney disease with unknown baseline creatinine . Etiology of RICHARD is secondary to hemodynamics, volume depletion. Renal function has slowly been im proving with volume expansion. At this point, we will continue current treatment plan. Continue gen tle IV hydration. Continue supportive care, renally dose all meds. 2. Hypernatremia. The patient has a free water deficit approximately 2 liters. We will continue hy pertonic fluid. We will increase rate of D5 water at 75 mL an hour. 3. Anemia. Monitor hemoglobin and hematocrit levels. 4. Mineral bone disorder, monitor calcium and phosphorus levels. 5. Sepsis secondary to pneumonia. Continue current antibiotic regimen. 6. Acute hypoxemic respiratory failure secondary to pneumonia, reactive airway disease. The patient remains on BiPAP, nebulizer, steroids and antibiotics will continue. The patient may not require in tubation. Follow up with pulmonary. 7. Acute encephalopathy, etiology is toxic metabolic. 8. Benign prostatic hypertrophy. Continue to monitor. 9. History of diastolic heart failure. The patient is currently compensated. Continue to monitor. Dictated By: ANGELA BALLARD DO NR/NTS Conf#: [id number] DID#: [id number] CC: SERGIO TREVINO MD;*EndCC*
[2018-09-04] MEDS ORDERED: FUROSEMIDE 20 MG INJ IV ONE (10:00)
--- NOTE | 2018-09-04 10:40 | CONS ---
Consult Date/Type/Reason Admit Date/Time Aug 29, 2018 at 05:45 Initial Consult Date 08/30/18 Type of Consult Pulmonary Date/Time of Note DATE: 09/04/18 TIME: 10:39 Subjective Patient remains BiPAP dependent. Awake alert however significant respiratory distress of noninvasive positive pressure ventilation. Chest x-ray was reviewed increasing bilateral infiltrates likely consistent with ARDS. Objective Vital Signs Date Temp Pulse Resp B/P (MAP) Pulse Ox O2 O2 Flow FiO2 Time Delivery Rate 09/04/18 97.8 84 26 164/56 98 BIPAP 08:00 (92) 09/04/18 50 05:05 09/02/18 5.0 20:06 Intake and Output 09/03/18 09/03/18 09/04/18 1515:00 23:00 07:00 IntakeIntake Total 601 ml 450 ml 600.0000 ml OutputOutput Total 320 ml 345 ml 335 ml BalanceBalance 281 ml 105 ml 265.0000 ml Exam GENERAL: Elderly gentleman on bilevel ventilation VITAL SIGNS: per chart NECK: Supple. No JVD or lymphadenopathy. CARDIAC EXAM: S1, S2. No added sounds or murmurs. CHEST: Diminished air entry bilaterally with few rales ABDOMEN: Soft, nontender. No guarding or rebound. EXTREMITIES: No cyanosis, clubbing or edema. NEUROLOGIC: Generalized weakness. No focal deficits. Vent Setting Fraction of Inspired Oxygen pe: 65 Results/Medications Result Diagram: 09/04/18 0509 09/04/18 0509 Results 24 hrs Laboratory Tests Test 09/03/18 13:47 09/04/18 00:34 09/04/18 05:09 Blood Gas Specimen Source Blood arterial Arterial Blood Date Drawn 09/03/2018 1:50:10 PM Arterial Blood pH 7.373 (Temp corrected) Arterial Blood pCO2 46.9 H (Temp correct) Arterial Blood pO2 58.6 L (Temp corrected) Arterial Blood HCO3 26.7 H Arterial Blood Base Excess 1.0 Arterial Blood 89.0 L Oxygen Saturation Domenico Test ACCEPTAB Arterial Blood Gas Right Radial Puncture Site Arterial 0.3 Blood Carboxyhemoglobin Arterial Blood Methemoglobin 0.1 Blood Gas A-a O2 Differential 245.1 H Oxyhemoglobin Percent 88.6 L Blood Gas Temperature 37.0 Blood Gas Respiration Rate 24.0 Blood Gas Actual 31 Respiration Rate Blood Gas Modality MASK - BIPAP FiO2 50.0 Blood Gas Pressure Support 10 Blood Gas IPAP/EPAP Ratio 15/5 Blood Gas Notified Whom TM Blood Gas Notified Time 09/03/2018 1:59:59 PM Vancomycin Level Trough 8.7 L White Blood Count 11.1 H Red Blood Count 3.93 L Hemoglobin 12.2 L Hematocrit 38.2 L Mean Corpuscular Volume 97.2 Mean Corpuscular Hemoglobin 31.0 Mean Corpuscular 31.9 L Hemoglobin Concent Red Cell Distribution Width 14.3 Platelet Count 217 Mean Platelet Volume 10.7 H Immature Granulocytes % 1.300 H Neutrophils % 89.2 H Lymphocytes % 2.6 L Monocytes % 6.9 Eosinophils % 0.0 Basophils % 0.0 Nucleated Red Blood Cells % 0.0 Immature Granulocytes # 0.140 H Neutrophils # 9.9 H Lymphocytes # 0.3 L Monocytes # 0.8 Eosinophils # 0.0 Basophils # 0.0 Nucleated Red Blood Cells # 0.0 Sodium Level 148 H Potassium Level 4.7 Chloride Level 114 H Carbon Dioxide Level 29 Anion Gap 5 Blood Urea Nitrogen 76 H Creatinine 1.94 H Est Glomerular Filtrat Rate mL/min Glucose Level 142 Calcium Level 8.5 Phosphorus Level 3.4 Magnesium Level 3.5 H Medications Current Medications IV Flush (NS 3 ml) 3 ml PER PROTOCOL IV ; Start 08/29/18 at 06:00 Ondansetron HCl (Zofran Inj) 4 mg Q6H PRN IV NAUSEA/VOMITING Last administered on 08/31/18at 05:02; Admin Dose 4 MG; Start 08/29/18 at 06:00 Acetaminophen (Tylenol Tab) 650 mg Q6H PRN PO .PAIN 1-3 OR TEMP; Start 08/29/18 at 06:00 Docusate Sodium (Colace) 100 mg Q12H PRN PO .CONSTIPATION Last administered on 08/30/18at 21:37; Admin Dose 100 MG; Start 08/29/18 at 06:00 Magnesium Hydroxide (Milk Of Mag) 30 ml DAILY PRN PO .CONSTIPATION Last administered on 09/02/18at 05:16; Admin Dose 30 ML; Start 08/29/18 at 06:00 Azithromycin 250 ml @ 250 mls/hr DAILY IVPB Last administered on 09/04/18at 08:31; Admin Dose 250 MLS/HR; Start 08/29/18 at 09:00 Alprazolam (Xanax) 0.5 mg QHS PO Last administered on 09/02/18 20:21; Admin Dose 0.5 MG; Start 08/29/18 at 21:00 Amiodarone HCl (Cordarone) 200 mg DAILY PO Last administered on 09/04/18 08:31; Admin Dose 200 MG; Start 08/29/18 at 11:00 Escitalopram Oxalate (Lexapro) 20 mg DAILY PO Last administered on 09/04/18 08:31; Admin Dose 20 MG; Start 08/30/18 at 09:00 Methylprednisolone Sodium Succinate (Solu-Medrol) 40 mg Q8 IV Last administered on 09/04/18 05:29; Admin Dose 40 MG; Start 08/30/18 at 22:00 Vancomycin HCl (Vanco Iv Per Pharmacy) VANCOMYCIN PER PHARMACY PER PROTOCOL XX ; Start 08/31/18 at 11:30 Docusate Sodium (Colace) 100 mg BID PO Last administered on 09/04/18 08:31; Admin Dose 100 MG; Start 08/31/18 at 13:30 Lorazepam (Ativan) 0.5 mg Q6H PRN PO ANXIETY; Start 09/02/18 at 13:00 Dextrose 1,000 ml @ 75 mls/hr Q24H25Y IV Last administered on 09/04/18 05:30; Admin Dose 50 MLS/HR; Start 09/03/18 at 08:00 Bisacodyl (Dulcolax Supp) 10 mg DAILY PRN [place] CONSTIPATION; Start 09/03/18 at 12:00 Meropenem/Sodium Chloride 50 ml @ 100 mls/hr Q12 IVPB Last administered on 09/04/18 08:31; Admin Dose 100 MLS/HR; Start 09/03/18 at 21:00 Heparin Sodium (Porcine) (Heparin (5000 Units/1ml)) 5,000 unit BID SC Last administered on 09/04/18 08:36; Admin Dose 5,000 UNIT; Start 09/03/18 at 14:00 Lorazepam (Ativan) 0.5 mg Q6H PRN IV anxiety Last administered on 09/04/18 06:32; Admin Dose 0.5 MG; Start 09/03/18 at 14:00 Levalbuterol (Xopenex Neb) 0.63 mg Q4H RESP THERAPY HHN Last administered on 09/04/18at 08:06; Admin Dose 0.63 MG; Start 09/03/18 at 15:00 Famotidine (Pepcid Iv) 20 mg Q24H IV Last administered on 09/04/18at 05:22; Admin Dose 20 MG; Start 09/04/18 at 06:00 Hydralazine HCl (Apresoline) 10 mg Q3 PRN IV ELEVATED SYSTOLIC BP Last admin istered on 09/04/18at 05:24; Admin Dose 10 MG; Start 09/03/18 at 18:00 Albuterol/ Ipratropium (Duoneb) 3 ml Q2H RESP THERAPY PRN HHN SHORTNESS OF BREATH; Start 09/03/18 at 20:00 Vancomycin HCl 1.5 gm/Sodium Chloride 250 ml @ 83.333 mls/ hr Q48H IVPB Last administered on 09/04/18at 02:46; Admin Dose 83.333 MLS/HR; Start 09/04/18 at 02:00 Assessment/Plan Hospital Course (Demo Recall) Assessment 1. Hypoxemic respiratory failure likely secondary to mild CHF with left-sided pneumonia possibly healthcare associated. Further radiographic changes consistent with ARDS. 2. Questionable component of aspiration 3. Renal insufficiency 4. Encephalopathy secondary to above toxic metabolic Plan 1. Continue antibiotics 2. Continue bilevel ventilation transition to nasal cannula O2 when possible, may require intubation mechanical ventilation family wish to continue current level of care. 3. Aspiration precautions 4. Keep patient dry as possible. Critical care time 40 minutes OLIVE ANDREWS MD, [facility] Sep 04, 2018 10:40
--- NOTE | 2018-09-04 12:13 | PN ---
DATE: 09/04/2018 SUBJECTIVE: Patient seen, case discussed with Dr. Gandhi regarding patient's BiPAP situation. The patient does have difficulty weaning off the BiPAP as was discussed as well with the RT. Patient als o has a component of anxiety. Ativan was given yesterday and p.r.n. The patient overall is alert, i n no distress. VITAL SIGNS: Temperature 96.9, pulse 80, respirations 25, blood pressure 140/52. Remains on BiPAP o f 50%, FIO2, saturation 98%. ABG none today. PHYSICAL EXAMINATION: GENERAL: The patient is in no acute distress, alert, responsive. CARDIOVASCULAR: S1, S2, faint to mild rhonchi bilaterally, much improved. ABDOMEN: Soft, nontender. EXTREMITIES: No significant edema noted. LABORATORY DATA: White count is 11.1, hemoglobin 12.2, hematocrit 38, platelet count of 217/89% ____ _ 30%. Chemistry: Sodium is 148, potassium 4.7, chloride 114, bicarbonate 29, BUN 76, creatinine 1. 94, glucose 142. Urinalysis on 08/31/2018 was positive. All cultures are negative. MEDICATIONS: 1. Pepcid 20 IV q.24h. 2. Vancomycin dosed per pharmacy. 3. Merrem IV q.12h. 4. DuoNebs every 2 hours p.r.n. 5. Hydralazine p.r.n. 6. Xopenex every 4 hours. 7. Heparin 5000 b.i.d. 8. Ativan 0.5 q.6h. p.r.n. 9. Dulcolax p.r.n. 10. Ativan p.r.n. 11. Colace b.i.d. 12. Solu-Medrol 40 IV q.12. 13. Lexapro 10 mg daily. 14. Xanax 0.5 at bedtime. 15. Amiodarone 200 daily. 16. Azithromycin daily. 16. Zofran p.r.n. 17. Tylenol p.r.n. 18. Colace p.r.n. 19. Milk of magnesia p.r.n. medications. ASSESSMENT AND PLAN: This is an 87-year-old Occitan male with history of atrial fibrillation, hyper tension, urinary retention, low back pain, depression, presenting with 2 to 3 days, worsening shortne ss of breath, was found to have acute respiratory failure, fever, bronchitis and pneumonia. 1. Respiratory. Continue above broad spectrum antibiotic with vancomycin and Merrem. Followup ches t x-ray in a.m. Continue IV steroids and p.r.n. Lasix. 2. Cardiovascular: Continue blood thinners for DVT prophylaxis. Hemodynamically stable. 3. Depression, on antidepressant. 4. Dysphagia. Speech therapy to follow. 5. Plan to see if we can wean him off the BiPAP safely. May consider NG tube feeding, which may be challenging with being on BiPAP. Again, speech therapy to follow. 6. Anemia, stable. No need for transfusion. 7. Infectious disease. Again, continue above antibiotics for treatment of UTI and pneumonia. All c ultures are negative. 8. Anxiolytics p.r.n. for anxiety. Case discussed with ID and his nephew in detail. Continue ICU c are. We will follow. Dictated By: SERGIO CERVANTES/NEHAL Conf#: [id number] DID#: [id number]
--- NOTE | 2018-09-04 17:46 | CONS ---
Assessment/Plan Assessment/Plan Hospital Course (Demo Recall) 1115 No acute events patient remains on BiPAP afebrile WBC 11.1 platelets 217 neutrophils 89.2 BUN 76 creatinine 1.94 Antimicrobials: Vancomycin, meropenem Zithromax Microbiology: Cultures since admission negative. Urinalysis was positive for leukocyte Estrace WBCs and few bacteria. Chest x-ray this morning revealed worsening left lung infiltrate. Renal ultrasound revealed markedly limited examination due to patient's inability to position for examination Physical examination: Well-developed well-nourished elderly man who is awake in no distress. Head atraumatic normocephalic sclera nonicteric vehicle mucosa dry neck is supple chest rise symmetrical breath sounds with bilateral rhonchi. Heart: S1-S2. Abdomen soft bowel sounds present. Assessment: 1. Acute hypoxemic respiratory failure 2. Pneumonia/ARDS 3. Mild CHF 4. Urinary tract infection as per urinalysis 5. Acute kidney injury Plan: Remains unchanged, on BiPAP, continue antibiotics, steroids, follow pulmonary recommendations Consultation Date/Type/Reason Admit Date/Time Aug 29, 2018 at 05:45 Initial Consult Date 08/30/18 Type of Consult id Date/Time of Note DATE: 09/04/18 TIME: 17:45 Exam/Review of Systems Exam Vitals Vital Signs Date Temp Pulse Resp B/P (MAP) Pulse Ox O2 O2 Flow FiO2 Time Delivery Rate 09/04/18 58 16:00 09/04/18 98 50 15:00 09/04/18 97.9 24 132/47 BIPAP 12:00 (75) 09/02/18 5.0 20:06 Intake and Output 09/03/18 09/03/18 09/04/18 1515:00 23:00 07:00 IntakeIntake Total 601 ml 450 ml 650.0000 ml OutputOutput Total 320 ml 345 ml 335 ml BalanceBalance 281 ml 105 ml 315.0000 ml Results Result Diagram: 09/04/18 0509 09/04/18 0509 Results 24hrs Laboratory Tests Test 09/04/18 00:34 09/04/18 05:09 Vancomycin Level Trough 8.7 L White Blood Count 11.1 H Red Blood Count 3.93 L Hemoglobin 12.2 L Hematocrit 38.2 L Mean Corpuscular Volume 97.2 Mean Corpuscular Hemoglobin 31.0 Mean Corpuscular Hemoglobin Concent 31.9 L Red Cell Distribution Width 14.3 Platelet Count 217 Mean Platelet Volume 10.7 H Immature Granulocytes % 1.300 H Neutrophils % 89.2 H Lymphocytes % 2.6 L Monocytes % 6.9 Eosinophils % 0.0 Basophils % 0.0 Nucleated Red Blood Cells % 0.0 Immature Granulocytes # 0.140 H Neutrophils # 9.9 H Lymphocytes # 0.3 L Monocytes # 0.8 Eosinophils # 0.0 Basophils # 0.0 Nucleated Red Blood Cells # 0.0 Sodium Level 148 H Potassium Level 4.7 Chloride Level 114 H Carbon Dioxide Level 29 Anion Gap 5 Blood Urea Nitrogen 76 H Creatinine 1.94 H Est Glomerular Filtrat Rate mL/min Glucose Level 142 Calcium Level 8.5 Phosphorus Level 3.4 Magnesium Level 3.5 H Medications Medication Current Medications IV Flush (NS 3 ml) 3 ml PER PROTOCOL IV ; Start 08/29/18 at 06:00 Ondansetron HCl (Zofran Inj) 4 mg Q6H PRN IV NAUSEA/VOMITING Last administered on 08/31/18 05:02; Admin Dose 4 MG; Start 08/29/18 at 06:00 Acetaminophen (Tylenol Tab) 650 mg Q6H PRN PO .PAIN 1-3 OR TEMP; Start 08/29/18 at 06:00 Docusate Sodium (Colace) 100 mg Q12H PRN PO .CONSTIPATION Last administered on 08/30/18 21:37; Admin Dose 100 MG; Start 08/29/18 at 06:00 Magnesium Hydroxide (Milk Of Mag) 30 ml DAILY PRN PO .CONSTIPATION Last administered on 09/02/18 05:16; Admin Dose 30 ML; Start 08/29/18 at 06:00 Azithromycin 250 ml @ 250 mls/hr DAILY IVPB Last administered on 09/04/18 08:31; Admin Dose 250 MLS/HR; Start 08/29/18 at 09:00 Alprazolam (Xanax) 0.5 mg QHS PO Last administered on 09/02/18 20:21; Admin Dose 0.5 MG; Start 08/29/18 at 21:00 Amiodarone HCl (Cordarone) 200 mg DAILY PO Last administered on 09/04/18 08:31; Admin Dose 200 MG; Start 08/29/18 at 11:00 Escitalopram Oxalate (Lexapro) 20 mg DAILY PO Last administered on 09/04/18 08:31; Admin Dose 20 MG; Start 08/30/18 at 09:00 Methylprednisolone Sodium Succinate (Solu-Medrol) 40 mg Q8 IV Last administered on 09/04/18 14:15; Admin Dose 40 MG; Start 08/30/18 at 22:00 Vancomycin HCl (Vanco Iv Per Pharmacy) VANCOMYCIN PER PHARMACY PER PROTOCOL XX ; Start 08/31/18 at 11:30 Docusate Sodium (Colace) 100 mg BID PO Last administered on 09/04/18 08:31; Admin Dose 100 MG; Start 08/31/18 at 13:30 Lorazepam (Ativan) 0.5 mg Q6H PRN PO ANXIETY; Start 09/02/18 at 13:00 Dextrose 1,000 ml @ 75 mls/hr [id number] IV Last administered on 09/04/18 05:30; Admin Dose 50 MLS/HR; Start 09/03/18 at 08:00 Bisacodyl (Dulcolax Supp) 10 mg DAILY PRN [place] CONSTIPATION; Start 09/03/18 at 12:00 Meropenem/Sodium Chloride 50 ml @ 100 mls/hr Q12 IVPB Last administered on 09/04/18 08:31; Admin Dose 100 MLS/HR; Start 09/03/18 at 21:00 Heparin Sodium (Porcine) (Heparin (5000 Units/1ml)) 5,000 unit BID SC Last administered on 09/04/18 08:36; Admin Dose 5,000 UNIT; Start 09/03/18 at 14:00 Lorazepam (Ativan) 0.5 mg Q6H PRN IV anxiety Last administered on 09/04/18 06:32; Admin Dose 0.5 MG; Start 09/03/18 at 14:00 Levalbuterol (Xopenex Neb) 0.63 mg Q4H RESP THERAPY HHN Last administered on 09/04/18 17:44; Admin Dose 0.63 MG; Start 09/03/18 at 15:00 Famotidine (Pepcid Iv) 20 mg Q24H IV Last administered on 09/04/18 05:22; Admin Dose 20 MG; Start 09/04/18 at 06:00 Hydralazine HCl (Apresoline) 10 mg Q3 PRN IV ELEVATED SYSTOLIC BP Last administered on 09/04/18at 05:24; Admin Dose 10 MG; Start 09/03/18 at 18:00 Albuterol/ Ipratropium (Duoneb) 3 ml Q2H RESP THERAPY PRN HHN SHORTNESS OF BREATH; Start 09/03/18 at 20:00 Vancomycin HCl 1.5 gm/Sodium Chloride 250 ml @ 83.333 mls/ hr Q48H IVPB Last administered on 09/04/18at 02:46; Admin Dose 83.333 MLS/HR; Start 09/04/18 at 02:00 TAYLOR RIZZO NP Sep 04, 2018 17:46
[2018-09-04] MEDS: ALPRAZOLAM 0.5 MG TAB PO SCH (21:00)
[2018-09-05] VITALS (49 sets, daily range): BP systolic 120–186; BP diastolic 43–145; PULSE 63–83; RESP 14–39
[2018-09-05] MEDS: LORAZEPAM 2 MG INJ IV PRN ×3 (00:36→16:30)
[2018-09-05] MEDS: LEVALBUTEROL (NEB) 0.63 MG/3 ML AMP HHN SCH ×6 (01:49→20:57)
[2018-09-05] MEDS: METHYLPREDNISOLONE 40 MG INJ IV SCH ×3 (05:02→22:35)
[2018-09-05] MEDS: FAMOTIDINE 20 MG INJ IV SCH (05:02)
--- NOTE | 2018-09-05 08:22 | CONS ---
Assessment/Plan Assessment/Plan Assessment/Plan (Daily) Patient is currently on BiPAP 17/11 at 50% FiO2. ABG was reviewed from today which is showing persistent hypoxemia. Assessment and recommendations; 1. Patient admitted with severe bilateral pneumonia with persistent hypoxemia. Patient however clinically is doing fairly well on BiPAP. 2. Possibly mild CHF. 3. Acute renal injury with continually improving renal function. Possibly underlying baseline mild renal insufficiency. 4. Anemia and thrombocytopenia. Continue current supportive care. Obtain follow-up chest x-ray. Patient possibly may require intubation if he does not improve over the next 24 to 48 hours. Consultation Date/Type/Reason Admit Date/Time Aug 29, 2018 at 05:45 Initial Consult Date 08/30/18 Type of Consult Pulmonary Patient condition is tenuous. On BiPAP. Having significant chest congestion. Take slightly yellow-tinged secretions noted on suctioning. Patient requiring deep nasotracheal suctioning. General exam; elderly male, mildly lethargic. Date/Time of Note DATE: 09/05/18 TIME: 08:20 24 HR Interval Summary Free Text/Dictation Patient's condition is tenuous still. On BiPAP at 50% FiO2. Patient does experience immediate O2 desaturation as soon as he is taken off BiPAP. General exam; elderly male, on BiPAP, awake and alert. Currently in no distress. Appropriately responsive. Exam/Review of Systems Exam Vitals Vital Signs Date Temp Pulse Resp B/P (MAP) Pulse Ox O2 O2 Flow FiO2 Time Delivery Rate 09/05/18 64 98 50 08:01 09/05/18 98.1 30 174/71 BIPAP 08:00 (105) 09/02/18 5.0 20:06 Intake and Output 09/04/18 09/04/18 09/05/18 1515:00 23:00 07:00 IntakeIntake Total 825 ml 225 ml 75 ml OutputOutput Total 690 ml 330 ml 355 ml BalanceBalance 135 ml -105 ml -280 ml Exam H EENT exam; supple neck, no JVD. No lymphadenopathy. Midline trachea. No thyromegaly. Patient is edentulous. No neck masses. Pupils are small bilaterally. Chest exam; diminished breath sounds bilaterally. S1-S2 audible, no murmurs. Regular rhythm. Abdomen exam; soft, nontender. No organomegaly. Bowel sounds audible. Extremity exam; no peripheral edema. PARAMEDIC exam; no focal deficit. Results Result Diagram: 09/05/18 0502 09/05/18 0502 Results 24hrs Laboratory Tests Test 09/05/18 05:02 09/05/18 07:00 White Blood Count 7.4 # Red Blood Count 3.62 L Hemoglobin 11.2 L Hematocrit 34.9 L Mean Corpuscular Volume 96.4 Mean Corpuscular Hemoglobin 30.9 Mean Corpuscular Hemoglobin Concent 32.1 Red Cell Distribution Width 14.2 Platelet Count 190 Mean Platelet Volume 11.2 H Immature Granulocytes % 1.500 H Neutrophils % 88.7 H Lymphocytes % 3.4 L Monocytes % 6.3 Eosinophils % 0.0 Basophils % 0.1 Nucleated Red Blood Cells % 0.0 Immature Granulocytes # 0.110 H Neutrophils # 6.6 Lymphocytes # 0.3 L Monocytes # 0.5 Eosinophils # 0.0 Basophils # 0.0 Nucleated Red Blood Cells # 0.0 Sodium Level 146 H Potassium Level 4.2 Chloride Level 112 H Carbon Dioxide Level 30 Anion Gap 4 L Blood Urea Nitrogen 78 H Creatinine 1.90 H Est Glomerular Filtrat Rate mL/min Glucose Level 172 Calcium Level 8.2 L Phosphorus Level 3.5 Magnesium Level 3.6 H Blood Gas Specimen Source Blood arterial Arterial Blood Date Drawn 09/05/2018 7:10:39 AM Arterial Blood pH (Temp corrected) 7.412 Arterial Blood pCO2 (Temp correct) 40.8 Arterial Blood pO2 (Temp corrected) 70.2 L Arterial Blood HCO3 25.4 Arterial Blood Base Excess 0.7 Arterial Blood Oxygen Saturation 93.3 L Domenico Test ACCEPTAB Arterial Blood Gas Puncture Site Right Radial Arterial Blood Carboxyhemoglobin 0.3 Arterial Blood Methemoglobin 0.2 Blood Gas A-a O2 Differential 240.4 H Oxyhemoglobin Percent 92.8 L Blood Gas Temperature 37.0 Blood Gas Respiration Rate 24.0 Blood Gas Actual Respiration Rate 26 Blood Gas Modality MASK - BIPAP FiO2 50.0 Blood Gas IPAP/EPAP Ratio 17/11 Blood Gas Notified Whom CW Blood Gas Notified Time 09/05/2018 7:56:00 AM Medications Medication Current Medications IV Flush (NS 3 ml) 3 ml PER PROTOCOL IV ; Start 08/29/18 at 06:00 Ondansetron HCl (Zofran Inj) 4 mg Q6H PRN IV NAUSEA/VOMITING Last administered on 08/31/18 05:02; Admin Dose 4 MG; Start 08/29/18 at 06:00 Acetaminophen (Tylenol Tab) 650 mg Q6H PRN PO .PAIN 1-3 OR TEMP; Start 08/29/18 at 06:00 Docusate Sodium (Colace) 100 mg Q12H PRN PO .CONSTIPATION Last administered on 08/30/18 21:37; Admin Dose 100 MG; Start 08/29/18 at 06:00 Magnesium Hydroxide (Milk Of Mag) 30 ml DAILY PRN PO .CONSTIPATION Last administered on 09/02/18 05:16; Admin Dose 30 ML; Start 08/29/18 at 06:00 Azithromycin 250 ml @ 250 mls/hr DAILY IVPB Last administered on 09/04/18 08:31; Admin Dose 250 MLS/HR; Start 08/29/18 at 09:00 Alprazolam (Xanax) 0.5 mg QHS PO Last administered on 09/02/18 20:21; Admin Dos e 0.5 MG; Start 08/29/18 at 21:00 Amiodarone HCl (Cordarone) 200 mg DAILY PO Last administered on 09/04/18 08:31; Admin Dose 200 MG; Start 08/29/18 at 11:00 Escitalopram Oxalate (Lexapro) 20 mg DAILY PO Last administered on 09/04/18 08:31; Admin Dose 20 MG; Start 08/30/18 at 09:00 Methylprednisolone Sodium Succinate (Solu-Medrol) 40 mg Q8 IV Last administered on 09/05/18 05:02; Admin Dose 40 MG; Start 08/30/18 at 22:00 Vancomycin HCl (Vanco Iv Per Pharmacy) VANCOMYCIN PER PHARMACY PER PROTOCOL XX ; Start 08/31/18 at 11:30 Docusate Sodium (Colace) 100 mg BID PO Last administered on 09/04/18 08:31; Admin Dose 100 MG; Start 08/31/18 at 13:30 Lorazepam (Ativan) 0.5 mg Q6H PRN PO ANXIETY; Start 09/02/18 at 13:00 Dextrose 1,000 ml @ 75 mls/hr [id number] IV Last administered on 09/04/18 05:30; Admin Dose 50 MLS/HR; Start 09/03/18 at 08:00 Bisacodyl (Dulcolax Supp) 10 mg DAILY PRN [place] CONSTIPATION; Start 09/03/18 at 12:00 Meropenem/Sodium Chloride 50 ml @ 100 mls/hr Q12 IVPB Last administered on 09/04/18at 21:13; Admin Dose 100 MLS/HR; Start 09/03/18 at 21:00 Heparin Sodium (Porcine) (Heparin (5000 Units/1ml)) 5,000 unit BID SC Last administered on 09/04/18at 21:17; Admin Dose 5,000 UNIT; Start 09/03/18 at 14:00 Levalbuterol (Xopenex Neb) 0.63 mg Q4H RESP THERAPY HHN Last administered on 09/05/18 08:03; Admin Dose 0.63 MG; Start 09/03/18 at 15:00 Famotidine (Pepcid Iv) 20 mg Q24H IV Last administered on 09/05/18 05:02; Admin Dose 20 MG; Start 09/04/18 at 06:00 Hydralazine HCl (Apresoline) 10 mg Q3 PRN IV ELEVATED SYSTOLIC BP Last administered on 09/04/18 05:24; Admin Dose 10 MG; Start 09/03/18 at 18:00 Albuterol/ Ipratropium (Duoneb) 3 ml Q2H RESP THERAPY PRN HHN SHORTNESS OF BREATH; Start 09/03/18 at 20:00 Vancomycin HCl 1.5 gm/Sodium Chloride 250 ml @ 83.333 mls/ hr Q48H IVPB Last administered on 09/04/18at 02:46; Admin Dose 83.333 MLS/HR; Start 09/04/18 at 02:00 Lorazepam (Ativan) 1 mg Q6H PRN IV anxiety; Start 09/05/18 at 14:00; Status JUDE DE LA TORRE Sep 05, 2018 08:22
--- NOTE | 2018-09-05 08:47 | PN ---
DATE: 09/05/2018 SUBJECTIVE: The patient remains in serious condition on BiPAP. No other acute events noted overnigh t. No hemoptysis, hematemesis, hematochezia. OBJECTIVE: VITAL SIGNS: Blood pressure is 164/61, respiration is 23, pulse 63, temperature 98.8. HEENT: Head is normocephalic. NECK: Supple. HEART: Regular rate. LUNGS: Show diminished breath sounds at the base. ABDOMEN: Soft, nontender to palpation without rebound or guarding. EXTREMITIES: Negative for clubbing, cyanosis, no edema. DERMATOLOGIC: No rashes. MUSCULOSKELETAL: No joint effusion. NEUROLOGIC: No change in exam. MEDICATIONS: The patient's medications have been reviewed. LABORATORY DATA: Has been reviewed. IMAGING STUDIES: Have been reviewed. ASSESSMENT AND PLAN: 1. Nonoliguric acute kidney injury on top of chronic kidney disease with unknown baseline creatinine . Etiology of acute kidney injury is secondary to hemodynamics. The patient's renal function is slo wly improving and appears to be stabilized around a creatinine of 1.9 mg/dL. At this point, continue current treatment plans, supportive care, renally dose all meds. 2. Hypernatremia. Continue hypertonic fluid. Sodium levels are slowly improving. 3. Anemia. Monitor hemoglobin and hematocrit levels. 4. Mineral bone disorder. Monitor calcium and phosphorus levels. 5. Sepsis secondary to pneumonia. Continue current antibiotic regimen. 6. Acute hypoxemic respiratory failure secondary to pneumonia, reactive airway disease. The patient remains on BiPAP, nebulizer, steroids, antibiotics. Will continue. 7. Acute encephalopathy, etiology is toxic metabolic. 8. Benign prostatic hypertrophy. Continue to monitor. 9. History of diastolic heart failure. The patient was given an additional dose of Lasix yesterday. Will continue to monitor, give intermittent diuretic therapy as needed. Dictated By: ANGELA BALLARD DO NR/NTS Conf#: [id number] DID#: [id number] CC: OLIVE ANDREWS MD; SERGIO TREVINO MD;*EndCC*
[2018-09-05] MEDS: DOCUSATE SODIUM 100 MG CAP PO SCH ×2 (09:00→21:00)
[2018-09-05] MEDS: AMIODARONE 200 MG TAB PO SCH (09:00)
[2018-09-05] MEDS: ESCITALOPRAM 10 MG TAB PO SCH (09:00)
[2018-09-05] MEDS: MEROPENEM 500MG/50 ML (PMX) 50 ML IVPB SCH (09:25)
--- NOTE | 2018-09-05 09:28 | CONS ---
Assessment/Plan Assessment/Plan Hospital Course (Demo Recall) ID NOTE CURRENT ABX: DAY #8 =>Vanco IV + MERREM + Azith #8 09/05/18 0502 09/05/18 0502 24H INTERVAL SUMMARY * Overweight M awake, anxious, on full face mask BIPAP, no fevers, WBC normalized, no fevers * NO pressors onboard -- (+)HTN * Chart reviewed -- d/w RN MICRO/OTHER * 08/29/18 (-) BCx * 08/29/18 Urine Cx (-) * 08/29 & 08/31/18 (-)MRSA * 08/30/18 (-)INFLUENZA A/B IMAGING * 09/05/18 CXR: IMPRESSION: Diffuse bilateral heterogeneous infiltrates. PHYSICAL EXAMINATION: GENERAL: VSS, NAD, Awake, Alert, anxious ?confused? HEENT: AT, NC == full face mask BIPAP NECK: Trach midline CHEST: Equal chest rise bilaterally == acute resp failure on BIPAP ABD: Soft, NT EXTREMITIES: Warm, dry SKIN: No rash, no diaphoresis ID ASSESSMENT 87 yo M admit with: 1. Sepsis due to acute Pneumonia/ARDS * Afebrile today * Leukocytosis RESOLVED 2. Acute hypoxemic respiratory failure 3. 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 Mild CHF-> Hx of diastolic dysfunction 5. Essential HTN 6. Afib-> Rate controlled 7. BPH w/urinary retention 8. Urinary tract infection as per urinalysis 9. Acute kidney injury * 08/29/18 Renal US: kidneys are not visualized due to overlying bowel gas. 10. 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 Let's de-escalate ABX * DC Vanco -> (-)MRSA Nares * DC Azith -- Day #8 today and he is on Amiodarone (increased risk of QT prolongation) * DC Merrem * Start Cefepime for HCAP at risk ASP due to BIPAP 2. Will f/u tomorrow and see how he tolerates UPDATE=> Case d/w Dr. Washington who is concerned patient not ready for aggressive ABX taper due to persistent PNA. * Will restart Vanco IV and increase Cefepime dose to Q8H. . Consultation Date/Type/Reason Admit Date/Time Aug 29, 2018 at 05:45 Initial Consult Date 08/30/18 Date/Time of Note DATE: 09/05/18 TIME: 09:26 Exam/Review of Systems Exam Vitals Vital Signs Date Temp Pulse Resp B/P (MAP) Pulse Ox O2 O2 Flow FiO2 Time Delivery Rate 09/05/18 64 98 50 08:01 09/05/18 98.1 30 174/71 BIPAP 08:00 (105) 09/02/18 5.0 20:06 Intake and Output 09/04/18 09/04/18 09/05/18 1515:00 23:00 07:00 IntakeIntake Total 825 ml 225 ml 75 ml OutputOutput Total 690 ml 330 ml 355 ml BalanceBalance 135 ml -105 ml -280 ml Results Result Diagram: 09/05/18 0502 09/05/18 0502 Results 24hrs Laboratory Tests Test 09/05/18 05:02 09/05/18 07:00 White Blood Count 7.4 # Red Blood Count 3.62 L Hemoglobin 11.2 L Hematocrit 34.9 L Mean Corpuscular Volume 96.4 Mean Corpuscular Hemoglobin 30.9 Mean Corpuscular Hemoglobin Concent 32.1 Red Cell Distribution Width 14.2 Platelet Count 190 Mean Platelet Volume 11.2 H Immature Granulocytes % 1.500 H Neutrophils % 88.7 H Lymphocytes % 3.4 L Monocytes % 6.3 Eosinophils % 0.0 Basophils % 0.1 Nucleated Red Blood Cells % 0.0 Immature Granulocytes # 0.110 H Neutrophils # 6.6 Lymphocytes # 0.3 L Monocytes # 0.5 Eosinophils # 0.0 Basophils # 0.0 Nucleated Red Blood Cells # 0.0 Sodium Level 146 H Potassium Level 4.2 Chloride Level 112 H Carbon Dioxide Level 30 Anion Gap 4 L Blood Urea Nitrogen 78 H Creatinine 1.90 H Est Glomerular Filtrat Rate mL/min Glucose Level 172 Calcium Level 8.2 L Phosphorus Level 3.5 Magnesium Level 3.6 H Blood Gas Specimen Source Blood arterial Arterial Blood Date Drawn 09/05/2018 7:10:39 AM Arterial Blood pH (Temp corrected) 7.412 Arterial Blood pCO2 (Temp correct) 40.8 Arterial Blood pO2 (Temp corrected) 70.2 L Arterial Blood HCO3 25.4 Arterial Blood Base Excess 0.7 Arterial Blood Oxygen Saturation 93.3 L Domenico Test ACCEPTAB Arterial Blood Gas Puncture Site Right Radial Arterial Blood Carboxyhemoglobin 0.3 Arterial Blood Methemoglobin 0.2 Blood Gas A-a O2 Differential 240.4 H Oxyhemoglobin Percent 92.8 L Blood Gas Temperature 37.0 Blood Gas Respiration Rate 24.0 Blood Gas Actual Respiration Rate 26 Blood Gas Modality MASK - BIPAP FiO2 50.0 Blood Gas IPAP/EPAP Ratio 17/11 Blood Gas Notified Whom CW Blood Gas Notified Time 09/05/2018 7:56:00 AM Medications Medication Current Medications IV Flush (NS 3 ml) 3 ml PER PROTOCOL IV ; Start 08/29/18 at 06:00 Ondansetron HCl (Zofran Inj) 4 mg Q6H PRN IV NAUSEA/VOMITING Last administered on 08/31/18 05:02; Admin Dose 4 MG; Start 08/29/18 at 06:00 Acetaminophen (Tylenol Tab) 650 mg Q6H PRN PO .PAIN 1-3 OR TEMP; Start 08/29/18 at 06:00 Docusate Sodium (Colace) 100 mg Q12H PRN PO .CONSTIPATION Last administered on 08/30/18 21:37; Admin Dose 100 MG; Start 08/29/18 at 06:00 Magnesium Hydroxide (Milk Of Mag) 30 ml DAILY PRN PO .CONSTIPATION Last administered on 09/02/18 05:16; Admin Dose 30 ML; Start 08/29/18 at 06:00 Azithromycin 250 ml @ 250 mls/hr DAILY IVPB Last administered on 09/04/18 08:31; Admin Dose 250 MLS/HR; Start 08/29/18 at 09:00 Alprazolam (Xanax) 0.5 mg QHS PO Last administered on 09/02/18 20:21; Admin Dose 0.5 MG; Start 08/29/18 at 21:00 Amiodarone HCl (Cordarone) 200 mg DAILY PO Last administered on 09/04/18 08:31; Admin Dose 200 MG; Start 08/29/18 at 11:00 Escitalopram Oxalate (Lexapro) 20 mg DAILY PO Last administered on 09/04/18 08:31; Admin Dose 20 MG; Start 08/30/18 at 09:00 Methylprednisolone Sodium Succinate (Solu-Medrol) 40 mg Q8 IV Last administered on 09/05/18 05:02; Admin Dose 40 MG; Start 08/30/18 at 22:00 Vancomycin HCl (Vanco Iv Per Pharmacy) VANCOMYCIN PER PHARMACY PER PROTOCOL XX ; Start 08/31/18 at 11:30 Docusate Sodium (Colace) 100 mg BID PO Last administered on 09/04/18 08:31; Admin Dose 100 MG; Start 08/31/18 at 13:30 Lorazepam (Ativan) 0.5 mg Q6H PRN PO ANXIETY; Start 09/02/18 at 13:00 Dextrose 1,000 ml @ 75 mls/hr [id number] IV Last administered on 09/04/18 05:30; Admin Dose 50 MLS/HR; Start 09/03/18 at 08:00 Bisacodyl (Dulcolax Supp) 10 mg DAILY PRN [place] CONSTIPATION; Start 09/03/18 at 12:00 Meropenem/Sodium Chloride 50 ml @ 100 mls/hr Q12 IVPB Last administered on 09/04/18 21:13; Admin Dose 100 MLS/HR; Start 09/03/18 at 21:00 Heparin Sodium (Porcine) (Heparin (5000 Units/1ml)) 5,000 unit BID SC Last administered on 09/04/18 21:17; Admin Dose 5,000 UNIT; Start 09/03/18 at 14:00 Levalbuterol (Xopenex Neb) 0.63 mg Q4H RESP THERAPY HHN Last administered on 09/05/18at 08:03; Admin Dose 0.63 MG; Start 09/03/18 at 15:00 Famotidine (Pepcid Iv) 20 mg Q24H IV Last administered on 09/05/18 05:02; Admin Dose 20 MG; Start 09/04/18 at 06:00 Hydralazine HCl (Apresoline) 10 mg Q3 PRN IV ELEVATED SYSTOLIC BP Last administered on 09/04/18 05:24; Admin Dose 10 MG; Start 09/03/18 at 18:00 Albuterol/ Ipratropium (Duoneb) 3 ml Q2H RESP THERAPY PRN HHN SHORTNESS OF BREATH; Start 09/03/18 at 20:00 Vancomycin HCl 1.5 gm/Sodium Chloride 250 ml @ 83.333 mls/ hr Q48H IVPB Last administered on 09/04/18at 02:46; Admin Dose 83.333 MLS/HR; Start 09/04/18 at 02:00 Lorazepam (Ativan) 1 mg Q6H PRN IV anxiety Last administered on 09/05/18at 08:49; Admin Dose 1 MG; Start 09/05/18 at 09:00 RAYNE CAMPOS NP Sep 05, 2018 09:28
[2018-09-05] MEDS: HEPARIN 5,000 UNIT/1 ML VIAL SC SCH ×2 (09:31→21:00)
[2018-09-05] MEDS: hydrALAzine 20 MG INJ IV PRN ×2 (09:32→19:48)
[2018-09-05] MEDS: AZITHROMYCIN 500MG/NS (PMX) 250 ML IVPB SCH (09:59)
[2018-09-05] MEDS ORDERED: CEFEPIME 1GM/50 ML (PMX) 50 ML IVPB SCH ×2 (11:30→14:00)
[2018-09-05] MEDS: DEXTROSE 5% 1,000 ML IV SCH (11:50)
[2018-09-05] MEDS ORDERED: VANCOMYCIN IV PER PHARMACY XX SCH (13:30)
[2018-09-05] MEDS: CLONIDINE 0.1 MG/24 HR PATCH TRANSDERM SCH (14:32)
--- NOTE | 2018-09-05 15:17 | PN ---
DATE: 09/05/2018 SUBJECTIVE: The patient was seen, remains on BiPAP, difficult to wean him off the BiPAP, which is co ncerning. Chest x-ray still shows diffuse patchy infiltrates bilaterally almost as a picture of ARDS . The patient also has not been fed as he is difficult to take him off the BiPAP noted and speech th michelle still is unable to evaluate him due to BiPAP. The patient is currently on a special sofa chair on BiPAP, less anxious. PHYSICAL EXAMINATION: VITAL SIGNS: Temperature 98.1, pulse 60, respirations 27, blood pressure 179/61, saturation 92% to 1 00% on BiPAP, 50% FIO2. GENERAL: The patient is in no acute distress. Flushed at the face. HEENT: BiPAP in place. CARDIOVASCULAR: S1, S2. LUNGS: Diffuse rhonchi. ABDOMEN: Soft and nontender. EXTREMITIES: There is no clubbing, cyanosis, or edema. LABORATORY DATA: White count 7.4, hemoglobin 11.2, hematocrit 35, platelet count of 119, neutrophils 89%, lymphocytes 3%. Chemistry: Sodium 143, potassium 4.2, chloride , bicarbonate 30, BUN 78, creatinine 1.9, glucose 172. ABG: pH of 7.41, pCO2 of 41, bicarbonate 25, saturation pO2 of 75, sa turation is 93%, this is on 50% FIO2, so ABG does look better today. All cultures including MRSA scr eening, blood cultures, urine cultures remain negative. Sputum culture was requested, but difficult to obtain. MEDICATIONS: Includes: 1. Cefepime dose per pharmacy. 2. Ativan. 3. Pepcid. 4. DuoNebs. 5. Hydralazine. 6. Xopenex. 7. Heparin. 8. Ativan. 9. Colace. 10. Solu-Medrol 40 IV q.8. 11. Lexapro 20 mg daily. 12. Xanax 0.5 at bedtime. 13. Amiodarone 200 every day. 14. Zofran. 15. Tylenol. 16. Colace. 17. Milk of Magnesia p.r.n. ASSESSMENT AND PLAN: This is an 87-year-old Faroese male with history of atrial fibrillation, hyper tension, urinary retention, low back pain, depression, who presented with 2 to 3 days of worsening sh ortness of breath. He was found to have acute respiratory failure, fever, bronchitis and pneumonia. 1. Respiratory. Unfortunately, the patient with ARDS picture patchy diffuse infiltrates. Antibioti cs per ID. This was just discussed with [employer] of Dr. Andersen, status post attempt with diuretic therapy. He remains on IV Solu-Medrol as well. Continue supportive care. Hopefully, we can wean him off th e BiPAP. Again, if the patient's condition remains the same or worse, he may need to be intubated. 2. Cardiovascular. Blood pressure is elevated despite IV hydralazine. We will add a clonidine patc h. The patient cannot take his meds in the setting of being on BiPAP. 3. Inability to eat due to being on BiPAP. Options may include NG tube, which is difficult while on . Will reassess and discussed with staff. 4. Anemia. No need for transfusion. 5. Infectious disease. Continue above antibiotics. 6. Anxiolytics will be provided for anxiety. 7. On Pepcid for GI prophylaxis. 8. On heparin for DVT prophylaxis. 9. We will follow. Dictated By: SERGIO CERVANTES/NTS Conf#: [id number] DID#: [id number] CC: OLIVE ANDREWS MD;*End*
[2018-09-05] MEDS: ALPRAZOLAM 0.5 MG TAB PO SCH (21:00)
[2018-09-05] MEDS: CEFEPIME 1GM/50 ML (PMX) 50 ML IVPB SCH (22:35)
[2018-09-06] VITALS (79 sets, daily range): BP systolic 110–210; BP diastolic 42–136; PULSE 44–93; RESP 18–50
[2018-09-06] MEDS: LORAZEPAM 2 MG INJ IV PRN
[2018-09-06] MEDS: LEVALBUTEROL (NEB) 0.63 MG/3 ML AMP HHN SCH ×2 (01:16→04:55)
[2018-09-06] MEDS: VANCOMYCIN HCL 1.5 GM in SOD CHLORIDE 0.9% 250 ML IVPB SCH (01:29)
[2018-09-06] MEDS: DEXTROSE 5% 1,000 ML IV SCH ×2 (01:29→17:12)
[2018-09-06] MEDS: METHYLPREDNISOLONE 40 MG INJ IV SCH ×3 (05:58→22:07)
[2018-09-06] MEDS: FAMOTIDINE 20 MG INJ IV SCH (05:58)
[2018-09-06] MEDS ORDERED: VECURONIUM 10 MG VIAL ONE (07:00)
[2018-09-06] MEDS ORDERED: ETOMIDATE 20 MG INJ ONE (07:00)
--- NOTE | 2018-09-06 08:14 | PN ---
DATE: 09/06/2018 SUBJECTIVE: The patient remains critically ill on BIPAP. No other events noted. No hemoptysis, hem atemesis or hematochezia. OBJECTIVE: VITAL SIGNS: Blood pressure is 148/58, respirations 24, pulse 71, temperature 98.6. HEENT: Head is normocephalic. NECK: Supple. HEART: Regular rate. LUNGS: Show diminished breath sounds at the base. ABDOMEN: Soft, nontender to palpation without rebound or guarding. EXTREMITIES: Negative for clubbing, cyanosis, no edema. DERMATOLOGIC: No rashes. MUSCULOSKELETAL: No joint effusion. NEUROLOGIC: No change in exam. MEDICATIONS: The patient's medications have been reviewed. LABORATORY DATA: The laboratory data has been reviewed. MEDICATIONS: The medications have been reviewed. IMAGING STUDIES: Have been reviewed. ASSESSMENT AND PLAN: 1. Nonoliguric acute kidney injury on top of chronic kidney disease with unknown baseline creatinine . Etiology of acute kidney injury is secondary to hemodynamics. The patient's renal function has sl owly improving. Continue current treatment plan, supportive care, renally dose all meds. 2. Hypernatremia. Continue D5 water. Sodium levels are slowly improving. 3. Anemia. Monitor hemoglobin and hematocrit levels. 4. Mineral bone disorder, monitor calcium and phosphorus levels. 5. Sepsis secondary to pneumonia. Continue current antibiotic regimen. 6. Acute hypoxemic respiratory failure secondary to pneumonia, reactive airway disease. The patient remains on BiPAP, nebulizer, steroids, antibiotics, continue. 7. Acute encephalopathy, etiology is toxic metabolic. 8. Benign prostatic hypertrophy. Continue to monitor. 9. Diastolic heart failure. Continue to monitor volume status closely. Continue to give intermitte nt diuretic therapy as needed. Dictated By: ANGELA BALLARD DO NR/NTS Conf#: [id number] DID#: [id number] CC: SERGIO TREVINO MD; OLIVE ANDREWS MD;*End*
[2018-09-06] MEDS: DOCUSATE SODIUM 100 MG CAP PO SCH ×2 (08:20→20:41)
[2018-09-06] MEDS: ESCITALOPRAM 10 MG TAB PO SCH (08:20)
[2018-09-06] MEDS: AMIODARONE 200 MG TAB PO SCH (08:20)
[2018-09-06] MEDS: HEPARIN 5,000 UNIT/1 ML VIAL SC SCH ×2 (08:57→20:48)
[2018-09-06] MEDS ORDERED: PROPOFOL 100 ML ONE (09:18)
--- NOTE | 2018-09-06 09:22 | CONS ---
Assessment/Plan Assessment/Plan Assessment/Plan (Daily) Chest x-ray showing worsening bilateral pneumonia. Patient is currently on BiPAP 20/8 40% FiO2. Assessment and recommendations; 1. Patient admitted with severe bilateral community-acquired pneumonia with persistent hypoxemia not able to tolerate being off BiPAP identified. Chest x- ray showing worsening bilateral pneumonia. 2. Onset of fatigue. 3. Chronic renal insufficiency with acute renal injury with improving renal function. Continue current antibiotic regimen. Patient will need oral intubation and invasive mechanical ventilation. I did talk to the patient's nephew of the phone and the family has consented for it. Prognosis is guarded, 35 minutes of critical care time was spent evaluating patient exclusive of any procedures. Consultation Date/Type/Reason Admit Date/Time Aug 29, 2018 at 05:45 Initial Consult Date 08/30/18 Type of Consult Pulmonary Patient condition is tenuous. On BiPAP. Having significant chest congestion. Take slightly yellow-tinged secretions noted on suctioning. Patient requiring deep nasotracheal suctioning. General exam; elderly male, mildly lethargic. Date/Time of Note DATE: 09/06/18 TIME: 09:19 24 HR Interval Summary Free Text/Dictation Patient's condition is likely worse today. Patient cannot handle being off Bi PAP for any length of time. Experiences immediate O2 desaturation. General exam; elderly male, on BiPAP. Responsive but lethargic. Exam/Review of Systems Exam Vitals Vital Signs Date Temp Pulse Resp B/P (MAP) Pulse Ox O2 O2 Flow FiO2 Time Delivery Rate 09/06/18 71 24 148/58 95 BIPAP 07:00 (88) 09/06/18 40 04:50 09/06/18 98.3 04:00 09/02/18 5.0 20:06 Intake and Output 09/05/18 09/05/18 09/06/18 1515:00 23:00 07:00 IntakeIntake Total 950 ml 650 ml 960.9 ml OutputOutput Total 535 ml 450 ml 440 ml BalanceBalance 415 ml 200 ml 520.9 ml Exam H EENT exam; supple neck, no JVD. No lymphadenopathy. Midline trachea. No thyromegaly. Patient is edentulous. No neck masses. On BiPAP. Chest exam; diminished breath sounds throughout. S1-S2 audible, no murmurs. Regular rhythm. Abdomen exam; soft, no organomegaly. Nondistended. Nontender. Bowel sounds audible. Extremity exam; no peripheral edema clubbing. BARGE CAPTAIN exam; patient is awake and follows simple commands. Results Result Diagram: 09/06/181 09/06/18 0421 Results 24hrs Laboratory Tests Test 09/06/18 04:21 White Blood Count 12.2 #H Red Blood Count 3.96 L Hemoglobin 12.2 L Hematocrit 38.6 L Mean Corpuscular Volume 97.5 Mean Corpuscular Hemoglobin 30.8 Mean Corpuscular Hemoglobin Concent 31.6 L Red Cell Distribution Width 14.3 Platelet Count 260 # Mean Platelet Volume 11.3 H Immature Granulocytes % 1.300 H Neutrophils % 90.7 H Lymphocytes % 3.1 L Monocytes % 4.7 Eosinophils % 0.0 Basophils % 0.2 Nucleated Red Blood Cells % 0.0 Immature Granulocytes # 0.160 H Neutrophils # 11.0 H Lymphocytes # 0.4 L Monocytes # 0.6 Eosinophils # 0.0 Basophils # 0.0 Nucleated Red Blood Cells # 0.0 Sodium Level 145 H Potassium Level 4.6 Chloride Level 112 H Carbon Dioxide Level 28 Anion Gap 5 Blood Urea Nitrogen 77 H Creatinine 1.83 H Est Glomerular Filtrat Rate mL/min Glucose Level 142 Calcium Level 8.3 L Phosphorus Level 3.5 Magnesium Level 3.5 H Medications Medication Current Medications IV Flush (NS 3 ml) 3 ml PER PROTOCOL IV ; Start 08/29/18 at 06:00 Ondansetron HCl (Zofran Inj) 4 mg Q6H PRN IV NAUSEA/VOMITING Last administered on 08/31/18at 05:02; Admin Dose 4 MG; Start 08/29/18 at 06:00 Acetaminophen (Tylenol Tab) 650 mg Q6H PRN PO .PAIN 1-3 OR TEMP; Start 08/29/18 at 06:00 Docusate Sodium (Colace) 100 mg Q12H PRN PO .CONSTIPATION Last administered on 08/30/18at 21:37; Admin Dose 100 MG; Start 08/29/18 at 06:00 Magnesium Hydroxide (Milk Of Mag) 30 ml DAILY PRN PO .CONSTIPATION Last administered on 09/02/18at 05:16; Admin Dose 30 ML; Start 08/29/18 at 06:00 Alprazolam (Xanax) 0.5 mg QHS PO Last administered on 09/02/18 20:21; Admin Dose 0.5 MG; Start 08/29/18 at 21:00 Amiodarone HCl (Cordarone) 200 mg DAILY PO Last administered on 09/04/18 08:31; Admin Dose 200 MG; Start 08/29/18 at 11:00 Escitalopram Oxalate (Lexapro) 20 mg DAILY PO Last administered on 09/04/18 08:31; Admin Dose 20 MG; Start 08/30/18 at 09:00 Methylprednisolone Sodium Succinate (Solu-Medrol) 40 mg Q8 IV Last administered on 09/06/18 05:58; Admin Dose 40 MG; Start 08/30/18 at 22:00 Docusate Sodium (Colace) 100 mg BID PO Last administered on 09/04/18 08:31; Admin Dose 100 MG; Start 08/31/18 at 13:30 Lorazepam (Ativan) 0.5 mg Q6H PRN PO ANXIETY; Start 09/02/18 at 13:00 Dextrose 1,000 ml @ 75 mls/hr [id number] IV Last administered on 09/06/18 01:29; Admin Dose 75 MLS/HR; Start 09/03/18 at 08:00 Bisacodyl (Dulcolax Supp) 10 mg DAILY PRN [place] CONSTIPATION; Start 09/03/18 at 12:00 Heparin Sodium (Porcine) (Heparin (5000 Units/1ml)) 5,000 unit BID SC Last administered on 09/06/18 08:57; Admin Dose 5,000 UNIT; Start 09/03/18 at 14:00 Levalbuterol (Xopenex Neb) 0.63 mg Q4H RESP THERAPY HHN Last administered on 09/06/18 04:55; Admin Dose 0.63 MG; Start 09/03/18 at 15:00 Famotidine (Pepcid Iv) 20 mg Q24H IV Last administered on 09/06/18 05:58; Admin Dose 20 MG; Start 09/04/18 at 06:00 Hydralazine HCl (Apresoline) 10 mg Q3 PRN IV ELEVATED SYSTOLIC BP Last administered on 09/05/18 19:48; Admin Dose 10 MG; Start 09/03/18 at 18:00 Albuterol/ Ipratropium (Duoneb) 3 ml Q2H RESP THERAPY PRN HHN SHORTNESS OF BREATH; Start 09/03/18 at 20:00 Lorazepam (Ativan) 1 mg Q6H PRN IV anxiety Last administered on 09/06/18at 00:00; Admin Dose 1 MG; Start 09/05/18 at 09:00 Clonidine HCl (Catapres-Tts 1 Patch) 1 patch Q7D TRANSDERM Last administered on 09/05/18at 14:32; Admin Dose 1 PATCH; Start 09/05/18 at 13:30 Vancomycin HCl (Vanco Iv Per Pharmacy) VANCOMYCIN PER PHARM... PER PROTOCOL XX ; Start 09/05/18 at 13:30 Vancomycin HCl 1.5 gm/Sodium Chloride 250 ml @ 83.333 mls/ hr Q48H IVPB Last administered on 09/06/18at 01:29; Admin Dose 83.333 MLS/HR; Start 09/06/18 at 02:00 Cefepime HCl 50 ml @ 100 mls/hr Q12H IVPB Last administered on 09/05/18at 22:35; Admin Dose 100 MLS/HR; Start 09/05/18 at 23:00 JUDE GODINEZ Sep 06, 2018 09:22
[2018-09-06] MEDS: PROPOFOL 100 ML IV SCH ×2 (10:00→18:29)
--- NOTE | 2018-09-06 10:03 | PN ---
DATE: 09/06/2018 The patient is seen, remains on BiPAP. Slightly tachypneic. Case discussed with Dr. Ponce who recommends intubating the patient due to ongoing struggle to wean him off the BiPAP. The patient is tired and has not been fed as well due to being on BiPAP and dysphagia. Plan to intubate today. Start NG tube feeding and close monitoring and serial chest x-ray. PHYSICAL EXAMINATION: VITAL SIGNS: Temperature 98.3, pulse 71, respirations 24, blood pressure 140/50, saturation 95% on BiPAP. ABG done today shows a pH of 7.4, pCO2 of 41, bicarbonate 25, pO2 70, saturation is 93%. GENERAL: The patient is arousable. CARDIOVASCULAR: S1, S2. LUNGS: Faint rhonchi bilaterally. ABDOMEN: Soft, nontender. EXTREMITIES: No clubbing, cyanosis, or edema. Slightly tachypneic. LABORATORY DATA: White count slightly high at 12.2, hemoglobin 12, hematocrit 39, platelets of 260, neutrophils 91%, 3%. Chemistry: Sodium 145, potassium 4.6, chloride 112, bicarbonate 28, BUN is 77, creatinine 0.83, glucose 142. MRSA screening negative. All cultures negative. We did request sputum culture which was not obtained yet. The patient's medications: Include: 1. Vancomycin. 2. Cefepime, dosed per pharmacy. 3. Clonidine patch every 7 days. Blood pressure has improved since. 4. Ativan 1 mg IV q.6h. p.r.n. 5. Pepcid 20 IV q.24h. 6. DuoNeb every 2 hours p.r.n. 7. Hydralazine p.r.n. 8. Xopenex every 4 hours. 9. Heparin 5000 b.i.d. 10. Ativan p.r.n. 11. Colace p.r.n. 12. Solu-Medrol 40 IV q. 8. 13. Lexapro 20 mg daily. 14. Xanax 0.5 at bedtime. 15. Amiodarone 200 daily. 16. Zofran. 17. Tylenol. 18. Colace. 19. Milk of magnesia p.r.n. 20. The patient is also on Ativan IV p.r.n. ASSESSMENT AND PLAN: This is an 87-year-old Portuguese male with history of atrial fibrillation, hypertension, urinary retention, low back pain, depression, who presented with 2 to 3 days of worsening shortness of breath, was found to have acute respiratory failure, fever, bronchitis and developing worsening pneumonia. 1. Respiratory. The patient with extensive diffuse patchy infiltrates bilaterally suggestive for ARDS. The patient will be intubated for supportive measures for ongoing treatment for his pneumonia. Continue steroids, breathing treatments. 2. Dysphagia. The patient will be started on nasogastric tube feeding. 3. Hypertension. Continue clonidine patch. 4. Anemia. Hemoglobin and hematocrit stable. No need for transfusion. 5. Infectious disease. Remains on broad spectrum antibiotic cefepime and vancomycin. Obtain sputum cultures after intubated. 6. Change Pepcid to Protonix via G-tube. 7. Continue deep venous thrombosis prophylaxis with heparin. 8. Acute renal failure due to diuretics administration. 9. Anxiolytics are being provided for anxiety. 10. Stool softeners will be provided as well. We will follow patient's condition. Dictated By: SERGIO CERVANTES/NEHAL Conf#: [id number] DID#: [id number] CC: OLIVE ANDREWS MD; SERGIO TREVINO MD;*EndCC* MTDD
[2018-09-06] MEDS: CEFEPIME 1GM/50 ML (PMX) 50 ML IVPB SCH (11:47)
--- NOTE | 2018-09-06 12:49 | CONS ---
Assessment/Plan Assessment/Plan Hospital Course (Demo Recall) ID NOTE CURRENT ABX: DAY #9 =>Vanco IV + Merrem s/p Cefepime s/p Azith #8 24H INTERVAL SUMMARY * Intubated this am -- no fevers, -- now sedated on Propofol * WBC up == he is on IV steroid * Did not tolerate ABX taper yesterday == will restart Merrem now * HTN -- Hx of Afib on Amiodarone -- Azith DC'd * CXR 09/06/17 IMPRESSION:1. Atherosclerosis of the thoracic aorta.2. Persistent bilateral pulmonary infiltrates which could represent infection or non infection related edema or combination of the 2. 3. Endotracheal and nasogastric tubes in place. MICRO/OTHER * 08/29/18 (-) BCx * 08/29/18 Urine Cx (-) * 08/29 & 08/31/18 (-)MRSA * 08/30/18 (-)INFLUENZA A/B IMAGING * 09/05/18 CXR: IMPRESSION: Diffuse bilateral heterogeneous infiltrates. PHYSICAL EXAMINATION: GENERAL: VSS, NAD, Awake, Alert, anxious ?confused? HEENT: AT, NC == full face mask BIPAP NECK: Trach midline CHEST: Equal chest rise bilaterally == acute resp failure on BIPAP ABD: Soft, NT EXTREMITIES: Warm, dry SKIN: No rash, no diaphoresis ID ASSESSMENT 87 yo M admit with: 1. Sepsis due to acute Pneumonia/ARDS * Afebrile today * Leukocytosis RESOLVED 2. Acute hypoxemic respiratory failure 3. 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 Mild CHF-> Hx of diastolic dysfunction 5. Essential HTN 6. Afib-> Rate controlled 7. BPH w/urinary retention 8. Urinary tract infection as per urinalysis 9. Acute kidney injury * 08/29/18 Renal US: kidneys are not visualized due to overlying bowel gas. 10. 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 Continue Vanco IV + Merrem 2. Obtain sputum for C&S 3. Avoid Macrolides and Quinolones as he is on Amiodarone * Add Doxycycline for concern ATYPICAL PNA = CAP (Nunu PLUNKETT'shyla) * Will request Mycoplasma PNA serology to r/o Atypical PNA . Consultation Date/Type/Reason Admit Date/Time Aug 29, 2018 at 05:45 Initial Consult Date 08/30/18 Date/Time of Note DATE: 09/06/18 TIME: 12:38 Exam/Review of Systems Exam Vitals Vital Signs Date Temp Pulse Resp B/P (MAP) Pulse Ox O2 O2 Flow FiO2 Time Delivery Rate 09/06/18 68 26 154/59 93 12:15 (90) 09/06/18 97.7 Mechanical 12:00 Ventilator 09/06/18 40 09:45 09/02/18 5.0 20:06 Intake and Output 09/05/18 09/05/18 09/06/18 1515:00 23:00 07:00 IntakeIntake Total 950 ml 650 ml 1035.9 ml OutputOutput Total 535 ml 450 ml 440 ml BalanceBalance 415 ml 200 ml 595.9 ml Results Result Diagram: 09/06/18 0421 09/06/18 0421 Results 24hrs Laboratory Tests Test 09/06/18 04:21 09/06/18 12:05 White Blood Count 12.2 #H Red Blood Count 3.96 L Hemoglobin 12.2 L Hematocrit 38.6 L Mean Corpuscular Volume 97.5 Mean Corpuscular Hemoglobin 30.8 Mean Corpuscular Hemoglobin Concent 31.6 L Red Cell Distribution Width 14.3 Platelet Count 260 # Mean Platelet Volume 11.3 H Immature Granulocytes % 1.300 H Neutrophils % 90.7 H Lymphocytes % 3.1 L Monocytes % 4.7 Eosinophils % 0.0 Basophils % 0.2 Nucleated Red Blood Cells % 0.0 Immature Granulocytes # 0.160 H Neutrophils # 11.0 H Lymphocytes # 0.4 L Monocytes # 0.6 Eosinophils # 0.0 Basophils # 0.0 Nucleated Red Blood Cells # 0.0 Sodium Level 145 H Potassium Level 4.6 Chloride Level 112 H Carbon Dioxide Level 28 Anion Gap 5 Blood Urea Nitrogen 77 H Creatinine 1.83 H Est Glomerular Filtrat Rate mL/min Glucose Level 142 Calcium Level 8.3 L Phosphorus Level 3.5 Magnesium Level 3.5 H Blood Gas Specimen Source Blood arterial Arterial Blood Date Drawn 09/06/2018 12:15:55 PM Arterial Blood pH (Temp corrected) 7.403 Arterial Blood pCO2 (Temp correct) 40.0 Arterial Blood pO2 (Temp corrected) 57.4 L Arterial Blood HCO3 24.4 Arterial Blood Base Excess -0.3 Arterial Blood Oxygen Saturation 88.3 L Domenico Test ACCEPTAB Arterial Blood Gas Puncture Site Right Radial Arterial Blood Carboxyhemoglobin 0.4 Arterial Blood Methemoglobin 0.2 Blood Gas A-a O2 Differential 181.8 H Oxyhemoglobin Percent 87.8 L Blood Gas Temperature 37.0 Blood Gas Respiration Rate 20.0 Blood Gas Actual Respiration Rate 24 Blood Gas Modality VENT - AC FiO2 40.0 Blood Gas Tidal Volume 500.0 Blood Gas Low PEEP Setting 5.0 Blood Gas Notified Whom CW Blood Gas Notified Time 09/06/2018 12:34:55 PM Medications Medication Current Medications IV Flush (NS 3 ml) 3 ml PER PROTOCOL IV ; Start 08/29/18 at 06:00 Ondansetron HCl (Zofran Inj) 4 mg Q6H PRN IV NAUSEA/VOMITING Last administered on 08/31/18 05:02; Admin Dose 4 MG; Start 08/29/18 at 06:00 Acetaminophen (Tylenol Tab) 650 mg Q6H PRN PO .PAIN 1-3 OR TEMP; Start 08/29/18 at 06:00 Docusate Sodium (Colace) 100 mg Q12H PRN PO .CONSTIPATION Last administered on 08/30/18 21:37; Admin Dose 100 MG; Start 08/29/18 at 06:00 Magnesium Hydroxide (Milk Of Mag) 30 ml DAILY PRN PO .CONSTIPATION Last administered on 09/02/18 05:16; Admin Dose 30 ML; Start 08/29/18 at 06:00 Alprazolam (Xanax) 0.5 mg QHS PO Last administered on 09/02/18 20:21; Admin Dose 0.5 MG; Start 08/29/18 at 21:00 Amiodarone HCl (Cordarone) 200 mg DAILY PO Last administered on 09/04/18 08:31; Admin Dose 200 MG; Start 08/29/18 at 11:00 Escitalopram Oxalate (Lexapro) 20 mg DAILY PO Last administered on 09/04/18 08 :31; Admin Dose 20 MG; Start 08/30/18 at 09:00 Methylprednisolone Sodium Succinate (Solu-Medrol) 40 mg Q8 IV Last administered on 09/06/18 05:58; Admin Dose 40 MG; Start 08/30/18 at 22:00 Docusate Sodium (Colace) 100 mg BID PO Last administered on 09/04/18 08:31; Admin Dose 100 MG; Start 08/31/18 at 13:30 Lorazepam (Ativan) 0.5 mg Q6H PRN PO ANXIETY; Start 09/02/18 at 13:00 Dextrose 1,000 ml @ 75 mls/hr [id number] IV Last administered on 09/06/18 01:29; Admin Dose 75 MLS/HR; Start 09/03/18 at 08:00 Bisacodyl (Dulcolax Supp) 10 mg DAILY PRN [place] CONSTIPATION; Start 09/03/18 at 12:00 Heparin Sodium (Porcine) (Heparin (5000 Units/1ml)) 5,000 unit BID SC Last administered on 09/06/18 08:57; Admin Dose 5,000 UNIT; Start 09/03/18 at 14:00 Levalbuterol (Xopenex Neb) 0.63 mg Q4H RESP THERAPY HHN Last administered on 09/06/18 04:55; Admin Dose 0.63 MG; Start 09/03/18 at 15:00 Famotidine (Pepcid Iv) 20 mg Q24H IV Last administered on 09/06/18 05:58; Admin Dose 20 MG; Start 09/04/18 at 06:00 Hydralazine HCl (Apresoline) 10 mg Q3 PRN IV ELEVATED SYSTOLIC BP Last administered on 09/05/18 19:48; Admin Dose 10 MG; Start 09/03/18 at 18:00 Albuterol/ Ipratropium (Duoneb) 3 ml Q2H RESP THERAPY PRN HHN SHORTNESS OF BREATH; Start 09/03/18 at 20:00 Lorazepam (Ativan) 1 mg Q6H PRN IV anxiety Last administered on 09/06/18 00:00; Admin Dose 1 MG; Start 09/05/18 at 09:00 Clonidine HCl (Catapres-Tts 1 Patch) 1 patch Q7D TRANSDERM Last administered on 09/05/18 14:32; Admin Dose 1 PATCH; Start 09/05/18 at 13:30 Vancomycin HCl (Vanco Iv Per Pharmacy) VANCOMYCIN PER PHARM... PER PROTOCOL XX ; Start 09/05/18 at 13:30 Vancomycin HCl 1.5 gm/Sodium Chloride 250 ml @ 83.333 mls/ hr Q48H IVPB Last administered on 09/06/18at 01:29; Admin Dose 83.333 MLS/HR; Start 09/06/18 at 02:00 Cefepime HCl 50 ml @ 100 mls/hr Q12H IVPB Last administered on 09/06/18at 11:47; Admin Dose 100 MLS/HR; Start 09/05/18 at 23:00 Propofol 100 ml @ 2.509 mls/ hr Q12H IV Last administered on 09/06/18at 10:00; Admin Dose 2.509 MLS/HR; Start 09/06/18 at 09:30 Lansoprazole (Prevacid) 30 mg DAILY@06 NGT ; Start 09/07/18 at 06:00 RAYNE CAMPOS NP Sep 06, 2018 12:49
[2018-09-06] MEDS: MEROPENEM 1 GM/50ML(PMX) 50 ML IVPB SCH (17:10)
[2018-09-06] MEDS: DOXYCYCLINE 100 MG in SOD CHLORIDE 0.9% 250 ML IVPB SCH (20:37)
[2018-09-06] MEDS: ALPRAZOLAM 0.5 MG TAB PO SCH (20:41)
[2018-09-07] VITALS (101 sets, daily range): BP systolic 106–172; BP diastolic 39–120; PULSE 46–71; RESP 13–33
[2018-09-07] MEDS: DEXTROSE 5% 1,000 ML IV SCH (00:08)
[2018-09-07] MEDS: PROPOFOL 100 ML IV SCH ×2 (05:02→16:26)
[2018-09-07] MEDS: MEROPENEM 1 GM/50ML(PMX) 50 ML IVPB SCH ×2 (05:39→17:51)
[2018-09-07] MEDS: METHYLPREDNISOLONE 40 MG INJ IV SCH ×3 (05:39→21:18)
[2018-09-07] MEDS: FAMOTIDINE 20 MG INJ IV SCH (05:39)
[2018-09-07] MEDS: LANSOPRAZOLE 30 MG CAP NGT SCH (05:39)
--- NOTE | 2018-09-07 08:13 | PN ---
DATE: 09/04/2018 The patient is seen at second visit. Nephew is at bedside. The patient is intermittently anxious, u nfortunately remains on BiPAP and saturation is around 93%. We will see if we can start him on pureed diet, intermittently take off of the BiPAP so he can get so me food. Otherwise, we are quite concerned about him getting tired on the BiPAP and requiring intuba tion. We will continue to monitor patient closely. Noted staff recommendations. Dictated By: SERGIO CERVANTES/NEHAL Conf#: [id number] DID#: [id number]
[2018-09-07] MEDS: ESCITALOPRAM 10 MG TAB PO SCH (08:45)
[2018-09-07] MEDS: DOCUSATE SODIUM 100 MG CAP PO SCH ×2 (08:45→20:56)
[2018-09-07] MEDS: DOXYCYCLINE 100 MG in SOD CHLORIDE 0.9% 250 ML IVPB SCH ×2 (08:45→20:56)
--- NOTE | 2018-09-07 08:46 | PN ---
DATE: 09/07/2018 SUBJECTIVE: Yesterday, the patient was intubated due to respiratory distress. The patient overnight has been stable. The patient is on tube feedings, tolerating well. No other events noted. OBJECTIVE: VITAL SIGNS: Blood pressure is 118/42, respirations are 70, pulse 53, temperature 98.6. HEENT: Head is normocephalic. NECK: Supple. HEART: Regular rate. LUNGS: Show diminished breath sounds at the base. ABDOMEN: Soft, nontender to palpation without rebound or guarding. EXTREMITIES: Negative for clubbing, cyanosis, no edema. DERMATOLOGIC: No rashes. MUSCULOSKELETAL: No joint effusion. NEUROLOGIC: No change in exam. MEDICATIONS: The patient's medications have been reviewed. LABORATORY DATA: Has been reviewed. Imaging studies have been reviewed. Laboratory data from 09/07/2018 is pending. ASSESSMENT AND PLAN: 1. Nonoliguric kidney injury on top of CKD with unknown baseline creatinine. Etiology of RICHARD is sec ondary to hemodynamics. Renal function has been slowly improving. At this point, would continue cur rent treatment plan, supportive care, renally dose all meds. 2. Hypernatremia. The patient's sodium levels are improving. Will increase free water flushes 200 mL q.4h. Discontinue D5 water. 3. Anemia. Monitor hemoglobin and hematocrit levels. 4. Mineral bone disorder, monitor calcium and phosphorus levels. 5. Sepsis secondary to pneumonia. Continue current antibiotic regimen. 6. Ventilator-dependent respiratory failure. The patient is status post intubation yesterday. ABG and vent settings were reviewed. Continue to monitor. Follow up with pulmonary. 7. Acute encephalopathy, etiology is toxic metabolic. 8. Benign prostatic hypertrophy. Continue to monitor. 9. Diastolic heart failure. Continue to monitor vital signs closely. Continue to give intermittent diuretic therapy as needed. Dictated By: ANGELA BALLARD DO NR/NTS Conf#: [id number] DID#: [id number] CC: OLIVE ANDREWS MD; SERGIO TREVINO MD;*EndCC*
[2018-09-07] MEDS: HEPARIN 5,000 UNIT/1 ML VIAL SC SCH ×2 (08:47→21:00)
[2018-09-07] MEDS: AMIODARONE 200 MG TAB PO SCH (08:49)
--- NOTE | 2018-09-07 08:55 | CONS ---
Assessment/Plan Assessment/Plan Assessment/Plan (Daily) Chest x-ray from today is pending. Ventilator setting; AC of 20, tidal volume 500, PEEP of 5, 50% FiO2. Patient is on propofol 20 mics per kilogram per minute. Assessment and recommendations; 1. Patient admitted with severe bilateral community-acquired pneumonia leading to respiratory failure requiring intubation having failed BiPAP. 2. Mild anemia and thrombus cytopenia. 3. Likely underlying renal insufficiency with acute injury with continually improving renal function now. 4. COPD. 5. Chest x-ray is improved with improving hypoxemia. Continue current supportive care. Decrease propofol dosing because of bradycardia and start fentanyl. Decrease FiO2 to keep O2 saturation of 94%. Obtain follow-up chest x-ray 24 hours. Prognosis still guarded. 35 minutes of critical care time was spent evaluating the patient. Consultation Date/Type/Reason Admit Date/Time Aug 29, 2018 at 05:45 Initial Consult Date 08/30/18 Type of Consult Pulmonary Patient condition is tenuous. On BiPAP. Having significant chest congestion. Take slightly yellow-tinged secretions noted on suctioning. Patient requiring deep nasotracheal suctioning. General exam; elderly male, mildly lethargic. Date/Time of Note DATE: 09/07/18 TIME: 08:52 24 HR Interval Summary Free Text/Dictation Patient's condition is critical. Was intubated yesterday morning for respiratory failure. Patient has remained hemodynamically stable. General exam; elderly male, Orally intubated, responsive appropriately. Currently no distress. Exam/Review of Systems Exam Vitals Vital Signs Date Temp Pulse Resp B/P (MAP) Pulse Ox O2 O2 Flow FiO2 Time Delivery Rate 09/07/18 57 21 147/57 100 08:00 (87) 09/07/18 50 07:23 09/07/18 97.8 07:00 09/07/18 Mechanical 05:45 Ventilator Intake and Output 09/06/18 09/06/18 09/07/18 1515:00 23:00 07:00 IntakeIntake Total 782.52 ml 1803.185 ml 1005.259 ml OutputOutput Total 240 ml 320 ml 360 ml BalanceBalance 542.52 ml 1483.185 ml 645.259 ml Exam H EENT exam; supple neck, no JVD. No lymphadenopathy. Midline trachea. No thyromegaly. Pupils are small bilaterally. Orogastric tube in place. Patient is edentulous. No neck masses. Chest exam; diminished breath sounds bilaterally. S1-S2 audible, no murmurs. Regular rhythm. Abdomen exam; soft, nontender. No organomegaly. Bowel sounds audible. Nondistended. Extremity exam; no edema clubbing. 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 Results Result Diagram: 09/07/18 0658 09/07/18 0658 Results 24hrs Laboratory Tests Test 09/06/18 12:05 09/07/18 06:58 Blood Gas Specimen Source Blood arterial Arterial Blood Date Drawn 09/06/2018 12:15:55 PM Arterial Blood pH (Temp corrected) 7.403 Arterial Blood pCO2 (Temp correct) 40.0 Arterial Blood pO2 (Temp corrected) 57.4 L Arterial Blood HCO3 24.4 Arterial Blood Base Excess -0.3 Arterial Blood Oxygen Saturation 88.3 L Domenico Test ACCEPTAB Arterial Blood Gas Puncture Site Right Radial Arterial Blood Carboxyhemoglobin 0.4 Arterial Blood Methemoglobin 0.2 Blood Gas A-a O2 Differential 181.8 H Oxyhemoglobin Percent 87.8 L Blood Gas Temperature 37.0 Blood Gas Respiration Rate 20.0 Blood Gas Actual Respiration Rate 24 Blood Gas Modality VENT - AC FiO2 40.0 Blood Gas Tidal Volume 500.0 Blood Gas Low PEEP Setting 5.0 Blood Gas Notified Whom CW Blood Gas Notified Time 09/06/2018 12:34:55 PM White Blood Count 10.7 Red Blood Count 3.48 L Hemoglobin 10.8 L Hematocrit 33.6 L Mean Corpuscular Volume 96.6 Mean Corpuscular Hemoglobin 31.0 Mean Corpuscular Hemoglobin Concent 32.1 Red Cell Distribution Width 14.2 Platelet Count 186 # Mean Platelet Volume 11.5 H Immature Granulocytes % 0.800 H Neutrophils % 92.9 H Lymphocytes % 2.6 L Monocytes % 3.6 Eosinophils % 0.0 Basophils % 0.1 Nucleated Red Blood Cells % 0.0 Immature Granulocytes # 0.090 H Neutrophils # 9.9 H Lymphocytes # 0.3 L Monocytes # 0.4 Eosinophils # 0.0 Basophils # 0.0 Nucleated Red Blood Cells # 0.0 Sodium Level 142 Potassium Level 4.3 Chloride Level 113 H Carbon Dioxide Level 25 Anion Gap 4 L Blood Urea Nitrogen 81 H Creatinine 1.80 H Est Glomerular Filtrat Rate mL/min Glucose Level 134 Calcium Level 7.3 L Phosphorus Level 3.7 Magnesium Level 3.2 H Medications Medication Current Medications IV Flush (NS 3 ml) 3 ml PER PROTOCOL IV ; Start 08/29/18 at 06:00 Ondansetron HCl (Zofran Inj) 4 mg Q6H PRN IV NAUSEA/VOMITING Last administered on 08/31/18 05:02; Admin Dose 4 MG; Start 08/29/18 at 06:00 Acetaminophen (Tylenol Tab) 650 mg Q6H PRN PO .PAIN 1-3 OR TEMP; Start 08/29/18 at 06:00 Docusate Sodium (Colace) 100 mg Q12H PRN PO .CONSTIPATION Last administered on 08/30/18 21:37; Admin Dose 100 MG; Start 08/29/18 at 06:00 Magnesium Hydroxide (Milk Of Mag) 30 ml DAILY PRN PO .CONSTIPATION Last administered on 09/02/18 05:16; Admin Dose 30 ML; Start 08/29/18 at 06:00 Alprazolam (Xanax) 0.5 mg QHS PO Last administered on 09/02/18 20:21; Admin Dose 0.5 MG; Start 08/29/18 at 21:00 Amiodarone HCl (Cordarone) 200 mg DAILY PO Last administered on 09/04/18 08:31; Admin Dose 200 MG; Start 08/29/18 at 11:00 Escitalopram Oxalate (Lexapro) 20 mg DAILY PO Last administered on 09/07/18 08:45; Admin Dose 20 MG; Start 08/30/18 at 09:00 Methylprednisolone Sodium Succinate (Solu-Medrol) 40 mg Q8 IV Last administered on 09/07/18 05:39; Admin Dose 40 MG; Start 08/30/18 at 22:00 Docusate Sodium (Colace) 100 mg BID PO Last administered on 09/07/18 08:45; Admin Dose 100 MG; Start 08/31/18 at 13:30 Lorazepam (Ativan) 0.5 mg Q6H PRN PO ANXIETY; Start 09/02/18 at 13:00 Bisacodyl (Dulcolax Supp) 10 mg DAILY PRN [place] CONSTIPATION; Start 09/03/18 at 12:00 Heparin Sodium (Porcine) (Heparin (5000 Units/1ml)) 5,000 unit BID SC Last administered on 09/07/18 08:47; Admin Dose 5,000 UNIT; Start 09/03/18 at 14:00 Famotidine (Pepcid Iv) 20 mg Q24H IV Last administered on 09/07/18 05:39; Admin Dose 20 MG; Start 09/04/18 at 06:00 Hydralazine HCl (Apresoline) 10 mg Q3 PRN IV ELEVATED SYSTOLIC BP Last administered on 09/05/18 19:48; Admin Dose 10 MG; Start 09/03/18 at 18:00 Albuterol/ Ipratropium (Duoneb) 3 ml Q2H RESP THERAPY PRN HHN SHORTNESS OF BREATH; Start 09/03/18 at 20:00 Lorazepam (Ativan) 1 mg Q6H PRN IV anxiety Last administered on 09/06/18 00:00; Admin Dose 1 MG; Start 09/05/18 at 09:00 Clonidine HCl (Catapres-Tts 1 Patch) 1 patch Q7D TRANSDERM Last administered on 09/05/18 14:32; Admin Dose 1 PATCH; Start 09/05/18 at 13:30 Vancomycin HCl (Vanco Iv Per Pharmacy) VANCOMYCIN PER PHARM... PER PROTOCOL XX ; Start 09/05/18 at 13:30 Vancomycin HCl 1.5 gm/Sodium Chloride 250 ml @ 83.333 mls/ hr Q48H IVPB Last administered on 09/06/18 01:29; Admin Dose 83.333 MLS/HR; Start 09/06/18 at 02:00 Propofol 100 ml @ 2.509 mls/ hr Q12H IV Last administered on 09/07/18 05:02; Admin Dose 9.95 MLS/HR; Start 09/06/18 at 09:30 Lansoprazole (Prevacid) 30 mg DAILY@06 NGT Last administered on 09/07/18 05:39; Admin Dose 30 MG; Start 09/07/18 at 06:00 Meropenem/Sodium Chloride 50 ml @ 100 mls/hr Q12H IVPB Last administered on 09/07/18 05:39; Admin Dose 100 MLS/HR; Start 09/06/18 at 18:00 Doxycycline Hyclate 100 mg/ Sodium Chloride 250 ml @ 250 mls/hr Q12 IVPB Last administered on 09/07/18at 08:45; Admin Dose 250 MLS/HR; Start 09/06/18 at 21:00 Fentanyl 100 ml @ 2.5 mls/hr TITRATE IV ; Start 09/07/18 at 09:30 JUDE GODINEZ 10, 2019 08:55
[2018-09-07] MEDS: FENTAnyl (DRIP) 1000 mcg/100mL 100 ML IV SCH (09:19)
--- NOTE | 2018-09-07 12:04 | CONS ---
Assessment/Plan Assessment/Plan Hospital Course (Demo Recall) Patient is intubated on low-dose of propofol drip he is bradycardic family at bedside no fevers overnight. WBC 10.7 platelets 186 neutrophils 92.9 BUN 81 creatinine 1.80 Microbiology: Sputum culture sent yesterday growing Leah albicans Chest x-ray yesterday revealed persistent bilateral pulmonary infiltrates Indwelling's: Endotracheal tube NG tube Mcgowan catheter Antimicrobials: Vanco, Merrem day #10, fluconazole doxycycline Physical examination: Well-developed well-nourished elderly man who is awake in no distress. Head atraumatic normocephalic sclera nonicteric vehicle mucosa dry neck is supple chest rise symmetrical breath sounds with bilateral rhonchi. Heart: S1-S2. Abdomen soft bowel sounds present. Assessment: 1. Acute hypoxemic respiratory failure 2. Pneumonia/ARDS 3. Mild CHF 4. Bradycardia 5. Acute kidney injury Plan: Remains unchanged, continue Vanco and meropenem for couple more days, vent management per pulmonary recommendations Consultation Date/Type/Reason Admit Date/Time Aug 29, 2018 at 05:45 Initial Consult Date 08/30/18 Type of Consult id Date/Time of Note DATE: 09/07/18 TIME: 11:59 Exam/Review of Systems Exam Vitals Vital Signs Date Temp Pulse Resp B/P (MAP) Pulse Ox O2 O2 Flow FiO2 Time Delivery Rate 09/07/18 80 11:05 09/07/18 57 25 100 09:05 09/07/18 147/57 08:00 (87) 09/07/18 97.8 07:00 09/07/18 Mechanical 05:45 Ventilator Intake and Output 09/06/18 09/06/18 09/07/18 1515:00 23:00 07:00 IntakeIntake Total 782.52 ml 1803.185 ml 1005.259 ml OutputOutput Total 240 ml 320 ml 360 ml BalanceBalance 542.52 ml 1483.185 ml 645.259 ml Results Result Diagram: 09/07/18 0658 09/07/18 0658 Results 24hrs Laboratory Tests Test 09/06/18 12:05 09/07/18 06:58 Blood Gas Specimen Source Blood arterial Arterial Blood Date Drawn 09/06/2018 12:15:55 PM Arterial Blood pH (Temp corrected) 7.403 Arterial Blood pCO2 (Temp correct) 40.0 Arterial Blood pO2 (Temp corrected) 57.4 L Arterial Blood HCO3 24.4 Arterial Blood Base Excess -0.3 Arterial Blood Oxygen Saturation 88.3 L Domenico Test ACCEPTAB Arterial Blood Gas Puncture Site Right Radial Arterial Blood Carboxyhemoglobin 0.4 Arterial Blood Methemoglobin 0.2 Blood Gas A-a O2 Differential 181.8 H Oxyhemoglobin Percent 87.8 L Blood Gas Temperature 37.0 Blood Gas Respiration Rate 20.0 Blood Gas Actual Respiration Rate 24 Blood Gas Modality VENT - AC FiO2 40.0 Blood Gas Tidal Volume 500.0 Blood Gas Low PEEP Setting 5.0 Blood Gas Notified Whom CW Blood Gas Notified Time 09/06/2018 12:34:55 PM White Blood Count 10.7 Red Blood Count 3.48 L Hemoglobin 10.8 L Hematocrit 33.6 L Mean Corpuscular Volume 96.6 Mean Corpuscular Hemoglobin 31.0 Mean Corpuscular Hemoglobin Concent 32.1 Red Cell Distribution Width 14.2 Platelet Count 186 # Mean Platelet Volume 11.5 H Immature Granulocytes % 0.800 H Neutrophils % 92.9 H Lymphocytes % 2.6 L Monocytes % 3.6 Eosinophils % 0.0 Basophils % 0.1 Nucleated Red Blood Cells % 0.0 Immature Granulocytes # 0.090 H Neutrophils # 9.9 H Lymphocytes # 0.3 L Monocytes # 0.4 Eosinophils # 0.0 Basophils # 0.0 Nucleated Red Blood Cells # 0.0 Sodium Level 142 Potassium Level 4.3 Chloride Level 113 H Carbon Dioxide Level 25 Anion Gap 4 L Blood Urea Nitrogen 81 H Creatinine 1.80 H Est Glomerular Filtrat Rate mL/min Glucose Level 134 Calcium Level 7.3 L Phosphorus Level 3.7 Magnesium Level 3.2 H Medications Medication Current Medications IV Flush (NS 3 ml) 3 ml PER PROTOCOL IV ; Start 08/29/18 at 06:00 Ondansetron HCl (Zofran Inj) 4 mg Q6H PRN IV NAUSEA/VOMITING Last administered on 08/31/18at 05:02; Admin Dose 4 MG; Start 08/29/18 at 06:00 Acetaminophen (Tylenol Tab) 650 mg Q6H PRN PO .PAIN 1-3 OR TEMP; Start 08/29/18 at 06:00 Docusate Sodium (Colace) 100 mg Q12H PRN PO .CONSTIPATION Last administered on 6/2/19at 21:37; Admin Dose 100 MG; Start 08/29/18 at 06:00 Magnesium Hydroxide (Milk Of Mag) 30 ml DAILY PRN PO .CONSTIPATION Last administered on 09/02/18 05:16; Admin Dose 30 ML; Start 08/29/18 at 06:00 Alprazolam (Xanax) 0.5 mg QHS PO Last administered on 09/02/18 20:21; Admin Dose 0.5 MG; Start 08/29/18 at 21:00 Amiodarone HCl (Cordarone) 200 mg DAILY PO Last administered on 09/04/18 08:31; Admin Dose 200 MG; Start 08/29/18 at 11:00 Escitalopram Oxalate (Lexapro) 20 mg DAILY PO Last administered on 09/07/18 08:45; Admin Dose 20 MG; Start 08/30/18 at 09:00 Methylprednisolone Sodium Succinate (Solu-Medrol) 40 mg Q8 IV Last administered on 09/07/18 05:39; Admin Dose 40 MG; Start 08/30/18 at 22:00 Docusate Sodium (Colace) 100 mg BID PO Last administered on 09/07/18 08:45; Admin Dose 100 MG; Start 08/31/18 at 13:30 Lorazepam (Ativan) 0.5 mg Q6H PRN PO ANXIETY; Start 09/02/18 at 13:00 Bisacodyl (Dulcolax Supp) 10 mg DAILY PRN [place] CONSTIPATION; Start 09/03/18 at 12:00 Heparin Sodium (Porcine) (Heparin (5000 Units/1ml)) 5,000 unit BID SC Last administered on 09/07/18 08:47; Admin Dose 5,000 UNIT; Start 09/03/18 at 14:00 Hydralazine HCl (Apresoline) 10 mg Q3 PRN IV ELEVATED SYSTOLIC BP Last administered on 09/05/18 19:48; Admin Dose 10 MG; Start 09/03/18 at 18:00 Albuterol/ Ipratropium (Duoneb) 3 ml Q2H RESP THERAPY PRN HHN SHORTNESS OF BREATH; Start 09/03/18 at 20:00 Lorazepam (Ativan) 1 mg Q6H PRN IV anxiety Last administered on 09/06/18 00:00; Admin Dose 1 MG; Start 09/05/18 at 09:00 Clonidine HCl (Catapres-Tts 1 Patch) 1 patch Q7D TRANSDERM Last administered on 09/05/18at 14:32; Admin Dose 1 PATCH; Start 09/05/18 at 13:30 Vancomycin HCl (Vanco Iv Per Pharmacy) VANCOMYCIN PER PHARM... PER PROTOCOL XX ; Start 09/05/18 at 13:30 Vancomycin HCl 1.5 gm/Sodium Chloride 250 ml @ 83.333 mls/ hr Q48H IVPB Last administered on 09/06/18at 01:29; Admin Dose 83.333 MLS/HR; Start 09/06/18 at 02:00 Propofol 100 ml @ 2.509 mls/ hr Q12H IV Last administered on 09/07/18at 05:02; Admin Dose 9.95 MLS/HR; Start 09/06/18 at 09:30 Lansoprazole (Prevacid) 30 mg DAILY@06 NGT Last administered on 09/07/18at 05:39; Admin Dose 30 MG; Start 09/07/18 at 06:00 Meropenem/Sodium Chloride 50 ml @ 100 mls/hr Q12H IVPB Last administered on 09/07/18at 05:39; Admin Dose 100 MLS/HR; Start 09/06/18 at 18:00 Doxycycline Hyclate 100 mg/ Sodium Chloride 250 ml @ 250 mls/hr Q12 IVPB Last administered on 09/07/18at 08:45; Admin Dose 250 MLS/HR; Start 09/06/18 at 21:00 Fentanyl 100 ml @ 2.5 mls/hr TITRATE IV Last administered on 09/07/18at 09:19; Admin Dose 2.5 MLS/HR; Start 09/07/18 at 09:30 Fluconazole/ Sodium Chloride 50 ml @ 50 mls/hr Q24H IVPB ; Start 09/07/18 at 11:30 TAYLOR RIZZO NP Sep 07, 2018 12:04
[2018-09-07] MEDS: FLUCONAZOLE 100 MG/50 ML (PMX) 50 ML IVPB SCH (13:36)
--- NOTE | 2018-09-07 16:13 | PN ---
DATE: 09/07/2018 SUBJECTIVE: The patient is seen, remains intubated, ventilated on propofol 20 mcg of fentanyl as ear lier. The patient had episodes of hypoxia, questionable mucous plug. The patient was suctioned aggr essively. He was placed also on 100% FiO2, but now saturating 100% with creatinines oxygen back down on 70% FiO2, saturation is 100%. Case was discussed with his nephew at bedside regarding plan of ca re. The patient otherwise remains stable. Episodes of bradycardia noted. I requested a cardiology consultation with Dr. Tracey. PHYSICAL EXAMINATION: VITAL SIGNS: Temperature 98.5, pulse 53, respirations 20, blood pressure 139/54, saturation 100%, cu rrently on 77% FIO2. GENERAL: No acute distress. The patient is ventilated. CARDIOVASCULAR: S1, S2. LUNGS: Faint rhonchi and wheezing bilaterally. ABDOMEN: Soft, nontender. EXTREMITIES: No significant edema throughout. LABORATORY DATA: White count 10.7, hemoglobin 10.8, hematocrit 34, platelets 186, neutrophils 93%, l ymphocytes 3%. Chemistry: Sodium 142, potassium 4.3, chloride 13, bicarbonate 25, BUN is 81, creati nine 1.8, and glucose 134. Respiratory culture shows Leah albicans. MEDICATIONS: 1. Diflucan was started today 100 IV daily. 2. Fentanyl p.r.n. 3. Prevacid 30 mg daily NG tube. 4. Doxycycline q. 12. 5. Merrem q. 12. 6. Propofol as directed. 7. Vancomycin dose per pharmacy. 8. Clonidine patch TTS 1 weekly. 9. Vancomycin as directed. 10. Ativan p.r.n. 11. DuoNebs p.r.n. 11. Hydralazine p.r.n. 12. Heparin 5000 b.i.d. 13. Ativan 0.5 q.6h. p.r.n. 14. Colace q. 8. 15. Solu-Medrol 40 IV q 8. 16. Lexapro 20 mg daily. 17. Xanax 0.5 at bedtime. 18. Amiodarone 200 mg daily. 19. Zocor. 20. Tylenol. 21. Colace. 22. Milk of magnesia as directed. ASSESSMENT AND PLAN: This is an 87-year-old English male with history of atrial fibrillation, hyper tension, urinary retention, low back pain, depression, who presents with 2 to 3 days of worsening marya rtness of breath, was found to have acute respiratory failure, fever, bronchitis, developing worsenin g pneumonia. 1. Respiratory. The patient with extensive diffuse patchy infiltrate. Continue aggressive antibiot ic management. Broad spectrum, also on IV steroids, breathing treatment and supportive care. The pa tient is ventilated. Continue serial chest x-ray. Titrate FiO2 to keep saturation greater than 90%. 2. Cardiovascular. The patient with episodes of bradycardia and hypertension. Currently on clonidi ne patch. Cardiology to follow for further recommendations. 3. Continue deep venous thrombosis prophylaxis with heparin. 4. Infectious disease. Continue aggressive treatment for pneumonia, questionable early ARDS picture . Remains with broad-spectrum antibiotic with Merrem, vancomycin and doxycycline. Add Diflucan. 5. Continue Prevacid for GI prophylaxis. 6. Acute renal insufficiency. Observe. Now off diuretics. Kidney function remains stable. 7. Continue sedation with propofol p.r.n. pain medications to be provided. 8. Stool softeners are being provided as well. 9. We will follow the patient closely in the intensive care. Again, case was discussed with his [facility] hew regarding plan of care. Dictated By: SERGIO CERVANTES/NEHAL Conf#: [id number] DID#: [id number]
--- NOTE | 2018-09-07 16:55 | CONS ---
Assessment/Plan Assessment/Plan Hospital Course (Demo Recall) 1. Marked sinus bradycardia: Appears to be asymptomatic and in sinus we will continue to monitor. Probably at least partially related to sedation as well as amiodarone 2. Acute hypoxemic respiratory failure status post intubation on the vent 3. Pulmonary hypertension 4. History of proximal atrial fibrillation 5. Hypertension 6. Urinary retention status post surgery 7. Pneumonia possible COPD possible ARDS 8. Acute renal failure Recommendations: We will discontinue the amiodarone given his marked bradycardia as well as his significant pulmonary disease. Continue blood pressure control. Vent support will be continued managed as per pulmonary Respiratory care to be continued. Continue with ICU care as long as patient is in the ventilator. Antibiotic management as per internal medicine consultants We will continue to monitor on telemetry I will check a thyroid function test as well Consider CT of the chest once patient pulmonary status is better Thank you for his referral. We will continue to follow along with you AMANDA DUNBAR MD [facility] Consultation Date/Type/Reason Admit Date/Time Aug 29, 2018 at 05:45 Date of Consultation: Sep 07, 2018 Type of Consult Cardiology Reason for Consultation BRADYCARDIA Requesting Provider: SERGIO TREVINO MD Date/Time of Note DATE: 09/07/18 TIME: 16:34 Hx of Present Illness Interventional cardiology consultation note Chief complaint: RESP FAILURE Reason for consult: Bradycardia History of present illness: Thank you for this referral. Thank you for his referral. History was obtained from the chart review of the old chart discussion with the staff and physicians. Patient himself is intubated unable to verbal and history to me. This is an 87-year-old Greek male with history of hypertension, P-atrial fibrillation, urinary retention who came to the hospital because of 2 to 3 weeks of cough and wheezing. The patient's symptoms got worse with fevers, cough and worsening shortness of breath. He presented to the emergency department for evaluation. In the ER, the patient's chest x-ray showed right basilar interst itial opacities, new from the prior exam from a few hours prior, likely reflecting atelectasis, mild prominence of interstitial markings may reflect mild underlying interstitial edema or chronic changes, mild cardiomegaly and aortic atherosclerosis. pt was noted to have high grade fever up to 105.5. Patient has been admitted to intensive care unit was has been on BiPAP for some time but required to be intubated yesterday he was admitted with failure Patient has noted to going become more bradycardic overnight. Heart rate as low as 50s but intermittently down to 40s rhythm was reviewed patient has remained in sinus rhythm with no atrial fibrillation. PAST MEDICAL HISTORY: Includes hypertension, atrial fibrillation, urinary retention, history of suprapubic catheter, constipation, neurogenic bladder. ALLERGIES: NO DRUG ALLERGIES. SOCIAL HISTORY: He is , + Tobacco, used to smoke in the past more than 30 years ago. No alcohol or IV drug use. PAST SURGICAL HISTORY: Includes suprapubic catheter placement in the past with the above prostate procedure at [facility] last month FAMILY HISTORY: Both parents in their 70s, unknown medical problems. The patient is from [facility]. Home MEDICATIONS: Includes: 1. Eliquis 5 mg b.i.d. 2. Amiodarone 200 mg daily. 3. Losartan 50 mg daily. 4. Simvastatin 20 mg at bedtime. 5. Alprazolam 0.5 at bedtime. 6. Lexapro 20 mg daily. 7. [place] 5/325 daily. 8. Lasix 40 mg daily. 9. KCl 8 mEq b.i.d. 10. Dexilant 60 mg daily. Family history: No reported history of early coronary artery disease Review of system: Patient denies all others except for above-mentioned Past Medical History Home Meds Reported Medications Losartan Potassium* (Losartan Potassium*) 50 Mg Tablet, 50 MG PO DAILY, TAB 08/29/18 Simvastatin (Simvastatin) 20 Mg Tablet, 20 MG PO QHS for 90 Days, #90 08/29/18 Furosemide* (Furosemide*) 40 Mg Tablet, 40 MG PO DAILY for 90 Days, #90 08/29/18 Potassium Chloride (K-Tab ER) 8 Meq Tablet.er, 8 MEQ PO BID for 90 Days, #180 08/29/18 Escitalopram Oxalate* (Escitalopram Oxalate*) 10 Mg Tablet, 20 MG PO DAILY for 90 Days, #90 08/29/18 Hydrocodone Bit-Acetaminophen (Hydrocodone Bit-APAP) 5-325MG Tablet, 1 TAB PO DAILY 08/29/18 Dexlansoprazole (Dexilant) 60 Mg , 60 MG PO DAILY for 90 Days, #90 08/29/18 Amiodarone Hcl* (Amiodarone Hcl*) 200 Mg Tablet, 200 MG PO DAILY for 90 Days, #90 08/29/18 Alprazolam* (Alprazolam*) 0.5 Mg Tablet, 0.5 MG PO QHS for 30 Days, #30 08/29/18 Medications Current Medications IV Flush (NS 3 ml) 3 ml PER PROTOCOL IV ; Start 08/29/18 at 06:00 Ondansetron HCl (Zofran Inj) 4 mg Q6H PRN IV NAUSEA/VOMITING Last administered on 08/31/18at 05:02; Admin Dose 4 MG; Start 08/29/18 at 06:00 Acetaminophen (Tylenol Tab) 650 mg Q6H PRN PO .PAIN 1-3 OR TEMP; Start 08/29/18 at 06:00 Docusate Sodium (Colace) 100 mg Q12H PRN PO .CONSTIPATION Last administered on 08/30/18 21:37; Admin Dose 100 MG; Start 08/29/18 at 06:00 Magnesium Hydroxide (Milk Of Mag) 30 ml DAILY PRN PO .CONSTIPATION Last administered on 09/02/18 05:16; Admin Dose 30 ML; Start 08/29/18 at 06:00 Alprazolam (Xanax) 0.5 mg QHS PO Last administered on 09/02/18 20:21; Admin Dose 0.5 MG; Start 08/29/18 at 21:00 Amiodarone HCl (Cordarone) 200 mg DAILY PO Last administered on 09/04/18 08:31; Admin Dose 200 MG; Start 08/29/18 at 11:00 Escitalopram Oxalate (Lexapro) 20 mg DAILY PO Last administered on 09/07/18 08:45; Admin Dose 20 MG; Start 08/30/18 at 09:00 Methylprednisolone Sodium Succinate (Solu-Medrol) 40 mg Q8 IV Last administered on 09/07/18 13:36; Admin Dose 40 MG; Start 08/30/18 at 22:00 Docusate Sodium (Colace) 100 mg BID PO Last administered on 09/07/18 08:45; Admin Dose 100 MG; Start 08/31/18 at 13:30 Lorazepam (Ativan) 0.5 mg Q6H PRN PO ANXIETY; Start 09/02/18 at 13:00 Bisacodyl (Dulcolax Supp) 10 mg DAILY PRN [place] CONSTIPATION; Start 09/03/18 at 12:00 Heparin Sodium (Porcine) (Heparin (5000 Units/1ml)) 5,000 unit BID SC Last administered on 09/07/18 08:47; Admin Dose 5,000 UNIT; Start 09/03/18 at 14:00 Hydralazine HCl (Apresoline) 10 mg Q3 PRN IV ELEVATED SYSTOLIC BP Last administered on 09/05/18 19:48; Admin Dose 10 MG; Start 09/03/18 at 18:00 Albuterol/ Ipratropium (Duoneb) 3 ml Q2H RESP THERAPY PRN HHN SHORTNESS OF BREATH; Start 09/03/18 at 20:00 Lorazepam (Ativan) 1 mg Q6H PRN IV anxiety Last administered on 09/06/18 00:00; Admin Dose 1 MG; Start 09/05/18 at 09:00 Clonidine HCl (Catapres-Tts 1 Patch) 1 patch Q7D TRANSDERM Last administered on 09/05/18 14:32; Admin Dose 1 PATCH; Start 09/05/18 at 13:30 Vancomycin HCl (Vanco Iv Per Pharmacy) VANCOMYCIN PER PHARM... PER PROTOCOL XX ; Start 09/05/18 at 13:30 Vancomycin HCl 1.5 gm/Sodium Chloride 250 ml @ 83.333 mls/ hr Q48H IVPB Last administered on 09/06/18 01:29; Admin Dose 83.333 MLS/HR; Start 09/06/18 at 02:00 Propofol 100 ml @ 2.509 mls/ hr Q12H IV Last administered on 09/07/18 16:26; Admin Dose 10.037 MLS/HR; Start 09/06/18 at 09:30 Lansoprazole (Prevacid) 30 mg DAILY@06 NGT Last administered on 09/07/18 05:39; Admin Dose 30 MG; Start 09/07/18 at 06:00 Meropenem/Sodium Chloride 50 ml @ 100 mls/hr Q12H IVPB Last administered on 09/07/18 05:39; Admin Dose 100 MLS/HR; Start 09/06/18 at 18:00 Doxycycline Hyclate 100 mg/ Sodium Chloride 250 ml @ 250 mls/hr Q12 IVPB Last administered on 6/10/19at 08:45; Admin Dose 250 MLS/HR; Start 09/06/18 at 21:00 Fentanyl 100 ml @ 2.5 mls/hr TITRATE IV Last administered on 09/07/18at 09:19; Admin Dose 2.5 MLS/HR; Start 09/07/18 at 09:30 Fluconazole/ Sodium Chloride 50 ml @ 50 mls/hr Q24H IVPB Last administered on 09/07/18at 13:36; Admin Dose 50 MLS/HR; Start 09/07/18 at 11:30 Metoclopramide HCl (Reglan) 5 mg Q6 IV ; Start 09/07/18 at 14:30 Multivitamins (Multivitamin) 30 ml DAILY NGT ; Start 09/07/18 at 14:30 Zinc Sulfate (Zinc Sulfate) 220 mg DAILY PO ; Start 09/07/18 at 14:30 Ascorbic Acid (Vitamin C) 500 mg DAILY NGT ; Start 09/07/18 at 14:30 Folic Acid (Folic Acid) 1 mg DAILY NGT ; Start 09/07/18 at 14:30 Miscellaneous Information (*Rx Drug Level Order Reminder*) VANCO TROUGH @ 0,100 ON... 0100 ONCE XX ; Start 09/08/18 at 01:00; Stop 09/08/18 at 01:01 Allergies: Coded Allergies: No Known Allergy (Unverified , 10/07/13) Social History Alcohol Use: none Smoking Status: Former smoker Drug Use: none Exam/Review of Systems Vital Signs Vitals Vital Signs Date Temp Pulse Resp B/P (MAP) Pulse Ox O2 O2 Flow FiO2 Time Delivery Rate 09/07/18 70 15:00 09/07/18 53 20 100 13:08 09/07/18 98.5 139/54 12:00 (82) 09/07/18 Mechanical 05:45 Ventilator Intake and Output 09/06/18 09/06/18 09/07/18 1515:00 23:00 07:00 IntakeIntake Total 782.52 ml 1803.185 ml 1045.259 ml OutputOutput Total 240 ml 320 ml 410 ml BalanceBalance 542.52 ml 1483.185 ml 635.259 ml Exam Exam General: Elderly gentleman. Status post intubation on the vent HEENT: NC/AT. pupils are equal. round. NECK: NO JVD. no stridor. CV: RRR. systolic murmur; no gallop or rubs. PULM: no wheezing + rhonchi. GI: SOFT, NT, ND, no rebound or guarding Extremity: trace B/L LE edema. no clubbing. neuro: Opens his eyes to verbal stimuli Psych: calm and pleasant rectal: deferred EKG normal sinus rhythm Chest x-ray on admission showed: 1. Right basilar interstitial opacities, new from the prior examination from a few hours prior, likely reflecting atelectasis. 2. Mild prominence of the interstitial markings, may reflect mild underlying interstitial edema or chronic lung changes. 3. Mild cardiomegaly and aortic atherosclerosis. Chest x-ray done on 09/06/2018 shows: 1. Atherosclerosis of the thoracic aorta. 2. Persistent bilateral pulmonary infiltrates which could represent infection or non infection related edema or combination of the 2. 3. Endotracheal and nasogastric tubes in place. Echocardiogram done on 08/29/2018 which was personally reviewed shows: There is mild to mod enlargement of left atrium. Normal left ventricular systolic function. Normal left ventricular cavity size. Normal left ventricular wall thickness. Ejection fraction is visually estimated at 60-65 %. Normal appearance of the mitral valve. Mild mitral valve regurgitation. Normal appearance of the aortic valve. No aortic regurgitation. Normal appearance of the tricuspid valve. The estimated Peak RVSP is 53 mmHg. There is mild tricuspid regurgitation. The IVC is not well visualized. Labs Result Diagram: 09/07/18 0658 09/07/18 0658 Results 24hrs Laboratory Tests Test 09/07/18 06:58 White Blood Count 10.7 Red Blood Count 3.48 L Hemoglobin 10.8 L Hematocrit 33.6 L Mean Corpuscular Volume 96.6 Mean Corpuscular Hemoglobin 31.0 Mean Corpuscular Hemoglobin Concent 32.1 Red Cell Distribution Width 14.2 Platelet Count 186 # Mean Platelet Volume 11.5 H Immature Granulocytes % 0.800 H Neutrophils % 92.9 H Lymphocytes % 2.6 L Monocytes % 3.6 Eosinophils % 0.0 Basophils % 0.1 Nucleated Red Blood Cells % 0.0 Immature Granulocytes # 0.090 H Neutrophils # 9.9 H Lymphocytes # 0.3 L Monocytes # 0.4 Eosinophils # 0.0 Basophils # 0.0 Nucleated Red Blood Cells # 0.0 Sodium Level 142 Potassium Level 4.3 Chloride Level 113 H Carbon Dioxide Level 25 Anion Gap 4 L Blood Urea Nitrogen 81 H Creatinine 1.80 H Est Glomerular Filtrat Rate mL/min Glucose Level 134 Calcium Level 7.3 L Phosphorus Level 3.7 Magnesium Level 3.2 H Medications Medications Current Medications IV Flush (NS 3 ml) 3 ml PER PROTOCOL IV ; Start 08/29/18 at 06:00 Ondansetron HCl (Zofran Inj) 4 mg Q6H PRN IV NAUSEA/VOMITING Last administered on 08/31/18 05:02; Admin Dose 4 MG; Start 08/29/18 at 06:00 Acetaminophen (Tylenol Tab) 650 mg Q6H PRN PO .PAIN 1-3 OR TEMP; Start 08/29/18 at 06:00 Docusate Sodium (Colace) 100 mg Q12H PRN PO .CONSTIPATION Last administered on 08/30/18 21:37; Admin Dose 100 MG; Start 08/29/18 at 06:00 Magnesium Hydroxide (Milk Of Mag) 30 ml DAILY PRN PO .CONSTIPATION Last administered on 09/02/18 05:16; Admin Dose 30 ML; Start 08/29/18 at 06:00 Alprazolam (Xanax) 0.5 mg QHS PO Last administered on 09/02/18 20:21; Admin Dose 0.5 MG; Start 08/29/18 at 21:00 Amiodarone HCl (Cordarone) 200 mg DAILY PO Last administered on 09/04/18 08:31; Admin Dose 200 MG; Start 08/29/18 at 11:00 Escitalopram Oxalate (Lexapro) 20 mg DAILY PO Last administered on 09/07/18 08:45; Admin Dose 20 MG; Start 08/30/18 at 09:00 Methylprednisolone Sodium Succinate (Solu-Medrol) 40 mg Q8 IV Last administered on 09/07/18 13:36; Admin Dose 40 MG; Start 08/30/18 at 22:00 Docusate Sodium (Colace) 100 mg BID PO Last administered on 09/07/18 08:45; Admin Dose 100 MG; Start 08/31/18 at 13:30 Lorazepam (Ativan) 0.5 mg Q6H PRN PO ANXIETY; Start 09/02/18 at 13:00 Bisacodyl (Dulcolax Supp) 10 mg DAILY PRN [place] CONSTIPATION; Start 09/03/18 at 12:00 Heparin Sodium (Porcine) (Heparin (5000 Units/1ml)) 5,000 unit BID SC Last administered on 09/07/18 08:47; Admin Dose 5,000 UNIT; Start 09/03/18 at 14:00 Hydralazine HCl (Apresoline) 10 mg Q3 PRN IV ELEVATED SYSTOLIC BP Last administered on 09/05/18 19:48; Admin Dose 10 MG; Start 09/03/18 at 18:00 Albuterol/ Ipratropium (Duoneb) 3 ml Q2H RESP THERAPY PRN HHN SHORTNESS OF BREATH; Start 09/03/18 at 20:00 Lorazepam (Ativan) 1 mg Q6H PRN IV anxiety Last administered on 09/06/18 00:00; Admin Dose 1 MG; Start 09/05/18 at 09:00 Clonidine HCl (Catapres-Tts 1 Patch) 1 patch Q7D TRANSDERM Last administered on 09/05/18 14:32; Admin Dose 1 PATCH; Start 09/05/18 at 13:30 Vancomycin HCl (Vanco Iv Per Pharmacy) VANCOMYCIN PER PHARM... PER PROTOCOL XX ; Start 09/05/18 at 13:30 Vancomycin HCl 1.5 gm/Sodium Chloride 250 ml @ 83.333 mls/ hr Q48H IVPB Last administered on 09/06/18 01:29; Admin Dose 83.333 MLS/HR; Start 09/06/18 at 02:00 Propofol 100 ml @ 2.509 mls/ hr Q12H IV Last administered on 09/07/18 16:26; Admin Dose 10.037 MLS/HR; Start 09/06/18 at 09:30 Lansoprazole (Prevacid) 30 mg DAILY@06 NGT Last administered on 09/07/18 05:39; Admin Dose 30 MG; Start 09/07/18 at 06:00 Meropenem/Sodium Chloride 50 ml @ 100 mls/hr Q12H IVPB Last administered on 09/07/18 05:39; Admin Dose 100 MLS/HR; Start 09/06/18 at 18:00 Doxycycline Hyclate 100 mg/ Sodium Chloride 250 ml @ 250 mls/hr Q12 IVPB Last administered on 6/10/19at 08:45; Admin Dose 250 MLS/HR; Start 09/06/18 at 21:00 Fentanyl 100 ml @ 2.5 mls/hr TITRATE IV Last administered on 09/07/18at 09:19; Admin Dose 2.5 MLS/HR; Start 09/07/18 at 09:30 Fluconazole/ Sodium Chloride 50 ml @ 50 mls/hr Q24H IVPB Last administered on 09/07/18at 13:36; Admin Dose 50 MLS/HR; Start 09/07/18 at 11:30 Metoclopramide HCl (Reglan) 5 mg Q6 IV ; Start 09/07/18 at 14:30 Multivitamins (Multivitamin) 30 ml DAILY NGT ; Start 09/07/18 at 14:30 Zinc Sulfate (Zinc Sulfate) 220 mg DAILY PO ; Start 09/07/18 at 14:30 Ascorbic Acid (Vitamin C) 500 mg DAILY NGT ; Start 09/07/18 at 14:30 Folic Acid (Folic Acid) 1 mg DAILY NGT ; Start 09/07/18 at 14:30 Miscellaneous Information (*Rx Drug Level Order Reminder*) VANCO TROUGH @ 0,100 ON... 0100 ONCE XX ; Start 09/08/18 at 01:00; Stop 09/08/18 at 01:01 AMANDA DUNBAR MD Sep 07, 2018 16:44
[2018-09-07] MEDS: MULTIVITAMINS 30 ML CUP NGT SCH (16:56)
[2018-09-07] MEDS: ASCORBIC ACID 500 MG TAB NGT SCH (16:57)
[2018-09-07] MEDS: ZINC SULFATE 220 MG CAP PO SCH (16:57)
[2018-09-07] MEDS: METOCLOPRAMIDE 10 MG INJ IV SCH ×3 (16:57→23:40)
[2018-09-07] MEDS: FOLIC ACID 1 MG TAB NGT SCH (17:02)
[2018-09-07] MEDS: ALPRAZOLAM 0.5 MG TAB PO SCH (20:56)
[2018-09-07] MEDS ORDERED: VITAMIN A & D 5 GM OINT PACKET TOP SCH (21:00)
[2018-09-08] VITALS (75 sets, daily range): BP systolic 108–168; BP diastolic 47–119; PULSE 48–68; RESP 16–26
[2018-09-08] MEDS: PROPOFOL 100 ML IV SCH ×3 (00:33→18:51)
[2018-09-08] MEDS: VANCOMYCIN HCL 1.5 GM in SOD CHLORIDE 0.9% 250 ML IVPB SCH (02:47)
[2018-09-08] MEDS: LANSOPRAZOLE 30 MG CAP NGT SCH (05:44)
[2018-09-08] MEDS: METOCLOPRAMIDE 10 MG INJ IV SCH ×3 (05:45→17:52)
[2018-09-08] MEDS: METHYLPREDNISOLONE 40 MG INJ IV SCH ×3 (05:45→21:14)
[2018-09-08] MEDS: MEROPENEM 1 GM/50ML(PMX) 50 ML IVPB SCH ×2 (05:50→17:52)
--- NOTE | 2018-09-08 07:16 | CONS ---
Consult Date/Type/Reason Admit Date/Time Aug 29, 2018 at 05:45 Initial Consult Date 09/07/18 Type of Consultation: cv Requesting Provider: SERGIO TREVINO MD Date/Time of Note DATE: 09/08/18 TIME: 07:14 Subjective Interventional cardiology follow-up progress note Subjective: Case discussed with the staff and telemetry was reviewed. Patient has remained sinus rhythm mostly sinus bradycardia. No long pauses reported. No significant other arrhythmias reported. Patient remains intubated on the vent in the ICU nonverbal. Minimize secretions per RN report O General: Elderly gentleman. Status post intubation on the vent HEENT: NC/AT. pupils are equal. round. NECK: NO JVD. no stridor. CV: RRR. systolic murmur; no gallop or rubs. PULM: no wheezing + rhonchi. GI: SOFT, NT, ND, no rebound or guarding Extremity: trace B/L LE edema. no clubbing. neuro: Opens his eyes to verbal stimuli Psych: calm and pleasant rectal: deferred EKG normal sinus rhythm Chest x-ray on admission showed: 1. Right basilar interstitial opacities, new from the prior examination from a few hours prior, likely reflecting atelectasis. 2. Mild prominence of the interstitial markings, may reflect mild underlying interstitial edema or chronic lung changes. 3. Mild cardiomegaly and aortic atherosclerosis. Chest x-ray done on 09/06/2018 shows: 1. Atherosclerosis of the thoracic aorta. 2. Persistent bilateral pulmonary infiltrates which could represent infection or non infection related edema or combination of the 2. 3. Endotracheal and nasogastric tubes in place. Echocardiogram done on 08/29/2018 which was personally reviewed shows: There is mild to mod enlargement of left atrium. Normal left ventricular systolic function. Normal left ventricular cavity size. Normal left ventricular wall thickness. Ejection fraction is visually estimated at 60-65 %. Normal appearance of the mitral valve. Mild mitral valve regurgitation. Normal appearance of the aortic valve. No aortic regurgitation. Normal appearance of the tricuspid valve. The estimated Peak RVSP is 53 mmHg. There is mild tricuspid regurgitation. The IVC is not well visualized. Objective Vitals Vital Signs Date Temp Pulse Resp B/P (MAP) Pulse Ox O2 O2 Flow FiO2 Time Delivery Rate 09/08/18 50 20 135/50 100 06:15 (78) 09/08/18 Mechanical 06:00 Ventilator 6/11/19 45 05:00 09/08/18 97.8 04:00 Intake and Output 09/07/18 09/07/18 09/08/18 1515:00 23:00 07:00 IntakeIntake Total 775.259 ml 977.667 ml 920.221 ml OutputOutput Total 360 ml 405 ml 336 ml BalanceBalance 415.259 ml 572.667 ml 584.221 ml Results/Medications Result Diagram: 09/08/18 0500 09/08/18 0500 Results 24 hrs Laboratory Tests Test 09/08/18 01:32 09/08/18 05:00 Vancomycin Level Trough 9.0 L White Blood Count 15.3 #H Red Blood Count 3.69 L Hemoglobin 11.5 L Hematocrit 35.6 L Mean Corpuscular Volume 96.5 Mean Corpuscular Hemoglobin 31.2 Mean Corpuscular Hemoglobin Concent 32.3 Red Cell Distribution Width 13.9 Platelet Count 190 Mean Platelet Volume 12.0 H Immature Granulocytes % 1.200 H Neutrophils % 93.1 H Lymphocytes % 2.1 L Monocytes % 3.5 Eosinophils % 0.0 Basophils % 0.1 Nucleated Red Blood Cells % 0.0 Immature Granulocytes # 0.180 H Neutrophils # 14.2 H Lymphocytes # 0.3 L Monocytes # 0.5 Eosinophils # 0.0 Basophils # 0.0 Nucleated Red Blood Cells # 0.0 Sodium Level 144 Potassium Level 4.1 Chloride Level 115 H Carbon Dioxide Level 24 Anion Gap 5 Blood Urea Nitrogen 88 H Creatinine 1.78 H Est Glomerular Filtrat Rate mL/min Glucose Level 147 Calcium Level 7.4 L Phosphorus Level 4.6 Magnesium Level 3.1 H Total Bilirubin 0.3 Direct Bilirubin 0.00 Indirect Bilirubin 0.3 Aspartate Amino Transf (AST/SGOT) 33 Alanine Aminotransferase (ALT/SGPT) 53 Alkaline Phosphatase 74 B-Type Natriuretic Peptide 3670 H Total Protein 4.8 L Albumin 2.4 L Globulin 2.40 Albumin/Globulin Ratio 1.00 Thyroid Stimulating Hormone (TSH) Pending Home Meds Reported Medications Losartan Potassium* (Losartan Potassium*) 50 Mg Tablet, 50 MG PO DAILY, TAB 08/29/18 Simvastatin (Simvastatin) 20 Mg Tablet, 20 MG PO QHS for 90 Days, #90 08/29/18 Furosemide* (Furosemide*) 40 Mg Tablet, 40 MG PO DAILY for 90 Days, #90 08/29/18 Potassium Chloride (K-Tab ER) 8 Meq Tablet.er, 8 MEQ PO BID for 90 Days, #180 08/29/18 Escitalopram Oxalate* (Escitalopram Oxalate*) 10 Mg Tablet, 20 MG PO DAILY for 90 Days, #90 08/29/18 Hydrocodone Bit-Acetaminophen (Hydrocodone Bit-APAP) 5-325MG Tablet, 1 TAB PO DAILY 08/29/18 Dexlansoprazole (Dexilant) 60 Mg , 60 MG PO DAILY for 90 Days, #90 08/29/18 Amiodarone Hcl* (Amiodarone Hcl*) 200 Mg Tablet, 200 MG PO DAILY for 90 Days, #90 08/29/18 Alprazolam* (Alprazolam*) 0.5 Mg Tablet, 0.5 MG PO QHS for 30 Days, #30 08/29/18 Medications Current Medications IV Flush (NS 3 ml) 3 ml PER PROTOCOL IV ; Start 08/29/18 at 06:00 Ondansetron HCl (Zofran Inj) 4 mg Q6H PRN IV NAUSEA/VOMITING Last administered on 08/31/18at 05:02; Admin Dose 4 MG; Start 08/29/18 at 06:00 Acetaminophen (Tylenol Tab) 650 mg Q6H PRN PO .PAIN 1-3 OR TEMP; Start 08/29/18 at 06:00 Docusate Sodium (Colace) 100 mg Q12H PRN PO .CONSTIPATION Last administered on 08/30/18at 21:37; Admin Dose 100 MG; Start 08/29/18 at 06:00 Magnesium Hydroxide (Milk Of Mag) 30 ml DAILY PRN PO .CONSTIPATION Last administered on 09/02/18at 05:16; Admin Dose 30 ML; Start 08/29/18 at 06:00 Alprazolam (Xanax) 0.5 mg QHS PO Last administered on 09/07/18at 20:56; Admin Dose 0.5 MG; Start 08/29/18 at 21:00 Escitalopram Oxalate (Lexapro) 20 mg DAILY PO Last administered on 09/07/18at 08:45; Admin Dose 20 MG; Start 08/30/18 at 09:00 Methylprednisolone Sodium Succinate (Solu-Medrol) 40 mg Q8 IV Last administered on 09/08/18 05:45; Admin Dose 40 MG; Start 08/30/18 at 22:00 Docusate Sodium (Colace) 100 mg BID PO Last administered on 09/07/18 20:56; Admin Dose 100 MG; Start 08/31/18 at 13:30 Lorazepam (Ativan) 0.5 mg Q6H PRN PO ANXIETY; Start 09/02/18 at 13:00 Bisacodyl (Dulcolax Supp) 10 mg DAILY PRN [place] CONSTIPATION; Start 09/03/18 at 12:00 Heparin Sodium (Porcine) (Heparin (5000 Units/1ml)) 5,000 unit BID SC Last administered on 09/07/18 21:00; Admin Dose 5,000 UNIT; Start 09/03/18 at 14:00 Hydralazine HCl (Apresoline) 10 mg Q3 PRN IV ELEVATED SYSTOLIC BP Last administered on 09/05/18 19:48; Admin Dose 10 MG; Start 09/03/18 at 18:00 Albuterol/ Ipratropium (Duoneb) 3 ml Q2H RESP THERAPY PRN HHN SHORTNESS OF BREATH; Start 09/03/18 at 20:00 Lorazepam (Ativan) 1 mg Q6H PRN IV anxiety Last administered on 09/06/18 00:00; Admin Dose 1 MG; Start 09/05/18 at 09:00 Clonidine HCl (Catapres-Tts 1 Patch) 1 patch Q7D TRANSDERM Last administered on 09/05/18 14:32; Admin Dose 1 PATCH; Start 09/05/18 at 13:30 Vancomycin HCl (Vanco Iv Per Pharmacy) VANCOMYCIN PER PHARM... PER PROTOCOL XX ; Start 09/05/18 at 13:30 Propofol 100 ml @ 2.509 mls/ hr Q12H IV Last administered on 09/08/18 00:33; Admin Dose 10.037 MLS/HR; Start 09/06/18 at 09:30 Lansoprazole (Prevacid) 30 mg DAILY@06 NGT Last administered on 09/08/18 05:44; Admin Dose 30 MG; Start 09/07/18 at 06:00 Meropenem/Sodium Chloride 50 ml @ 100 mls/hr Q12H IVPB Last administered on 09/08/18 05:50; Admin Dose 100 MLS/HR; Start 09/06/18 at 18:00 Doxycycline Hyclate 100 mg/ Sodium Chloride 250 ml @ 250 mls/hr Q12 IVPB Last administered on 09/07/18at 20:56; Admin Dose 250 MLS/HR; Start 09/06/18 at 21:00 Fentanyl 100 ml @ 2.5 mls/hr TITRATE IV Last administered on 09/07/18 09:19; Admin Dose 2.5 MLS/HR; Start 09/07/18 at 09:30 Fluconazole/ Sodium Chloride 50 ml @ 50 mls/hr Q24H IVPB Last administered on 09/07/18at 13:36; Admin Dose 50 MLS/HR; Start 09/07/18 at 11:30 Metoclopramide HCl (Reglan) 5 mg Q6 IV Last administered on 09/08/18at 05:45; Admin Dose 5 MG; Start 09/07/18 at 14:30 Multivitamins (Multivitamin) 30 ml DAILY NGT Last administered on 09/07/18 16:56; Admin Dose 30 ML; Start 09/07/18 at 14:30 Zinc Sulfate (Zinc Sulfate) 220 mg DAILY PO Last administered on 09/07/18 16:57; Admin Dose 220 MG; Start 09/07/18 at 14:30 Ascorbic Acid (Vitamin C) 500 mg DAILY NGT Last administered on 09/07/18 16:57; Admin Dose 500 MG; Start 09/07/18 at 14:30 Folic Acid (Folic Acid) 1 mg DAILY NGT Last administered on 09/07/18at 17:02; Admin Dose 1 MG; Start 09/07/18 at 14:30 Petrolatum (Vaseline) APPLY TO MULTIPLE SC... BID TOP ; Start 09/08/18 at 09:00 Vancomycin HCl 1.5 gm/Sodium Chloride 250 ml @ 83.333 mls/ hr Q36H IVPB ; Start 09/09/18 at 12:00 Assessment/Plan Hospital Course (Demo Recall) 1. Marked sinus bradycardia: Appears to be asymptomatic and in sinus we will continue to monitor. Probably at least partially related to sedation as well as amiodarone 2. Acute hypoxemic respiratory failure status post intubation on the vent 3. Pulmonary hypertension 4. History of proximal atrial fibrillation 5. Hypertension 6. Urinary retention status post surgery 7. Pneumonia possible COPD possible ARDS 8. Acute renal failure Recommendations: off the amiodarone given his marked bradycardia as well as his significant pulmonary disease. Continue blood pressure control. Vent support will be continued managed as per pulmonary Respiratory care to be continued. Continue with ICU care as long as patient is in the ventilator. Antibiotic management as per internal medicine consultants We will continue to monitor on telemetry f/u on thyroid function test as well Consider CT of the chest once patient pulmonary status is better Thank you for his referral. We will continue to follow along with you AMANDA DUNBAR MD [facility] AMANDA DUNBAR MD Sep 08, 2018 07:16
[2018-09-08] MEDS ORDERED: FUROSEMIDE 20 MG INJ IV ONE (08:00)
--- NOTE | 2018-09-08 08:27 | PN ---
DATE: 09/08/2018 SUBJECTIVE: The patient remains critically ill on full ventilatory support. No other acute events n oted. No hemoptysis, hematemesis or hematochezia. OBJECTIVE: VITAL SIGNS: Blood pressure is 135/50, respiration 20, pulse 50, temperature 98.6. HEENT: Head is normocephalic. NECK: Supple. HEART: Regular rate. LUNGS: Show diminished breath sounds at the base. ABDOMEN: Soft, nontender to palpation without rebound or guarding. EXTREMITIES: Negative for clubbing, cyanosis, no edema. DERMATOLOGIC: No rashes. MUSCULOSKELETAL: No joint effusion. NEUROLOGIC: No change in exam. MEDICATIONS: Have been reviewed. LABORATORY DATA: Has been reviewed. IMAGING STUDIES: Have been reviewed. MICROBIOLOGY: Has been reviewed. ASSESSMENT AND PLAN: 1. Nonoliguric acute kidney injury on top of chronic kidney disease with unknown baseline creatinine . Etiology of acute kidney injury is secondary to hemodynamics. Renal function has slowly been impr oving. At this point, continue current treatment plans, supportive care, renally dose all meds. 2. Hyponatremia, improved. Continue free water flushes. 3. Anemia. Continue to monitor hemoglobin and hematocrit levels. 4. Mineral bone disorder, monitor calcium and phosphorus levels. 5. Ventilatory dependent respiratory failure. Vent settings and ABG was reviewed. Continue to [facility] [place]. Follow up with pulmonary. 6. Sepsis secondary to pneumonia. Continue current antibiotic regimen. 7. Acute encephalopathy, etiology is toxic metabolic. 8. Benign prostatic hypertrophy. Continue to monitor. 9. Diastolic heart failure. Monitor volume status closely. Monitor I's and O's closely. We will g joshua intermittent diuretic therapy as needed. Patient will be given a dose of Lasix today. Dictated By: ANGELA BALLARD DO NR/NTS Conf#: [id number] DID#: [id number] CC: SERGIO TREVINO MD;*End[facility]*
--- NOTE | 2018-09-08 08:53 | CONS ---
Assessment/Plan Assessment/Plan Assessment/Plan (Daily) Ventilator setting; assist control of 20, tidal volume 500, PEEP of 5, 45% FiO2. Patient is currently on propofol 20 mics per kilogram per minute. Chest x-ray was reviewed from today which is showing bilateral infiltrates. Without any interval change. Assessment and recommendations; 1. Patient admitted with severe bilateral pneumonia failed BiPAP required intubation with persistent hypoxemia and severe bilateral pneumonia. Patient currently on appropriate antimicrobial and bronchodilator regimen. 2. Prior history of cardiac arrhythmia. 3. COPD. 4. Mild CHF. 5. Acute renal injury with a baseline of renal insufficiency with continually improving renal function. 6. Mild anemia and thrombocytopenia. Continue current supportive care. Obtain ABG. Decrease FiO2 to keep O2 saturation around 94%. Prognosis is guarded. 35 minutes of critical care time was spent evaluating the patient. Consultation Date/Type/Reason Admit Date/Time Aug 29, 2018 at 05:45 Initial Consult Date 08/30/18 Type of Consult Pulmonary Patient condition is tenuous. On BiPAP. Having significant chest congestion. Take slightly yellow-tinged secretions noted on suctioning. Patient requiring deep nasotracheal suctioning. General exam; elderly male, mildly lethargic. Requesting Provider: SERGIO TREVINO MD Date/Time of Note DATE: 09/08/18 TIME: 08:50 24 HR Interval Summary Free Text/Dictation Patient's condition is critical. Patient is off fentanyl drip. Patient has remained hemodynamically stable. General exam; elderly male, orally intubated, awake and fairly responsive. Currently in no distress. Exam/Review of Systems Exam Vitals Vital Signs Date Temp Pulse Resp B/P (MAP) Pulse Ox O2 O2 Flow FiO2 Time Delivery Rate 09/08/18 58 21 149/59 08:30 (89) 09/08/18 100 08:15 09/08/18 97.7 Mechanical 08:00 Ventilator 09/08/18 45 05:00 Intake and Output 09/07/18 09/07/18 09/08/18 1515:00 23:00 07:00 IntakeIntake Total 775.259 ml 977.667 ml 970.221 ml OutputOutput Total 360 ml 405 ml 381 ml BalanceBalance 415.259 ml 572.667 ml 589.221 ml Exam H EENT exam; supple neck, no JVD. No lymphadenopathy. Midline trachea. No thyromegaly. Orally intubated. Patient is edentulous. Chest exam; diminished breath sounds bilaterally. S1-S2 audible, no murmurs. Regular rhythm. Abdomen exam; soft, no organomegaly. Bowel sounds audible. Abdomen is nondistended. Extremity exam; trace edema. [employer] exam; patient awake and opens eyes on name calling. Results Result Diagram: 09/08/18 0500 09/08/18 0500 Results 24hrs Laboratory Tests Test 09/08/18 01:32 09/08/18 04:59 09/08/18 05:00 Vancomycin Level Trough 9.0 L Procalcitonin 0.20 H White Blood Count 15.3 #H Red Blood Count 3.69 L Hemoglobin 11.5 L Hematocrit 35.6 L Mean Corpuscular Volume 96.5 Mean Corpuscular Hemoglobin 31.2 Mean Corpuscular Hemoglobin Concent 32.3 Red Cell Distribution Width 13.9 Platelet Count 190 Mean Platelet Volume 12.0 H Immature Granulocytes % 1.200 H Neutrophils % 93.1 H Lymphocytes % 2.1 L Monocytes % 3.5 Eosinophils % 0.0 Basophils % 0.1 Nucleated Red Blood Cells % 0.0 Immature Granulocytes # 0.180 H Neutrophils # 14.2 H Lymphocytes # 0.3 L Monocytes # 0.5 Eosinophils # 0.0 Basophils # 0.0 Nucleated Red Blood Cells # 0.0 Sodium Level 144 Potassium Level 4.1 Chloride Level 115 H Carbon Dioxide Level 24 Anion Gap 5 Blood Urea Nitrogen 88 H Creatinine 1.78 H Est Glomerular Filtrat Rate mL/min Glucose Level 147 Calcium Level 7.4 L Phosphorus Level 4.6 Magnesium Level 3.1 H Total Bilirubin 0.3 Direct Bilirubin 0.00 Indirect Bilirubin 0.3 Aspartate Amino Transf (AST/SGOT) 33 Alanine Aminotransferase (ALT/SGPT) 53 Alkaline Phosphatase 74 B-Type Natriuretic Peptide 3670 H Total Protein 4.8 L Albumin 2.4 L Globulin 2.40 Albumin/Globulin Ratio 1.00 Thyroid Stimulating Hormone (TSH) 0.026 L Medications Medication Current Medications IV Flush (NS 3 ml) 3 ml PER PROTOCOL IV ; Start 08/29/18 at 06:00 Ondansetron HCl (Zofran Inj) 4 mg Q6H PRN IV NAUSEA/VOMITING Last administered on 08/31/18at 05:02; Admin Dose 4 MG; Start 08/29/18 at 06:00 Acetaminophen (Tylenol Tab) 650 mg Q6H PRN PO .PAIN 1-3 OR TEMP; Start 08/29/18 at 06:00 Docusate Sodium (Colace) 100 mg Q12H PRN PO .CONSTIPATION Last administered on 08/30/18 21:37; Admin Dose 100 MG; Start 08/29/18 at 06:00 Magnesium Hydroxide (Milk Of Mag) 30 ml DAILY PRN PO .CONSTIPATION Last administered on 09/02/18 05:16; Admin Dose 30 ML; Start 08/29/18 at 06:00 Alprazolam (Xanax) 0.5 mg QHS PO Last administered on 09/07/18 20:56; Admin Dose 0.5 MG; Start 08/29/18 at 21:00 Escitalopram Oxalate (Lexapro) 20 mg DAILY PO Last administered on 09/07/18 08:45; Admin Dose 20 MG; Start 08/30/18 at 09:00 Methylprednisolone Sodium Succinate (Solu-Medrol) 40 mg Q8 IV Last administered on 09/08/18 05:45; Admin Dose 40 MG; Start 08/30/18 at 22:00 Docusate Sodium (Colace) 100 mg BID PO Last administered on 09/07/18 20:56; Admin Dose 100 MG; Start 08/31/18 at 13:30 Lorazepam (Ativan) 0.5 mg Q6H PRN PO ANXIETY; Start 09/02/18 at 13:00 Bisacodyl (Dulcolax Supp) 10 mg DAILY PRN [place] CONSTIPATION; Start 09/03/18 at 12:00 Heparin Sodium (Porcine) (Heparin (5000 Units/1ml)) 5,000 unit BID SC Last administered on 09/07/18 21:00; Admin Dose 5,000 UNIT; Start 09/03/18 at 14:00 Hydralazine HCl (Apresoline) 10 mg Q3 PRN IV ELEVATED SYSTOLIC BP Last administered on 09/05/18 19:48; Admin Dose 10 MG; Start 09/03/18 at 18:00 Albuterol/ Ipratropium (Duoneb) 3 ml Q2H RESP THERAPY PRN HHN SHORTNESS OF BREATH; Start 09/03/18 at 20:00 Lorazepam (Ativan) 1 mg Q6H PRN IV anxiety Last administered on 09/06/18 00:00; Admin Dose 1 MG; Start 09/05/18 at 09:00 Clonidine HCl (Catapres-Tts 1 Patch) 1 patch Q7D TRANSDERM Last administered on 09/05/18 14:32; Admin Dose 1 PATCH; Start 09/05/18 at 13:30 Vancomycin HCl (Vanco Iv Per Pharmacy) VANCOMYCIN PER PHARM... PER PROTOCOL XX ; Start 09/05/18 at 13:30 Propofol 100 ml @ 2.509 mls/ hr Q12H IV Last administered on 09/08/18 00:33; Admin Dose 10.037 MLS/HR; Start 09/06/18 at 09:30 Lansoprazole (Prevacid) 30 mg DAILY@06 NGT Last administered on 09/08/18 05:44; Admin Dose 30 MG; Start 09/07/18 at 06:00 Meropenem/Sodium Chloride 50 ml @ 100 mls/hr Q12H IVPB Last administered on 09/08/18 05:50; Admin Dose 100 MLS/HR; Start 09/06/18 at 18:00 Doxycycline Hyclate 100 mg/ Sodium Chloride 250 ml @ 250 mls/hr Q12 IVPB Last administered on 09/07/18 20:56; Admin Dose 250 MLS/HR; Start 09/06/18 at 21:00 Fentanyl 100 ml @ 2.5 mls/hr TITRATE IV Last administered on 09/07/18 09:19; Admin Dose 2.5 MLS/HR; Start 09/07/18 at 09:30 Fluconazole/ Sodium Chloride 50 ml @ 50 mls/hr Q24H IVPB Last administered on 09/07/18 13:36; Admin Dose 50 MLS/HR; Start 09/07/18 at 11:30 Metoclopramide HCl (Reglan) 5 mg Q6 IV Last administered on 09/08/18 05:45; Admin Dose 5 MG; Start 09/07/18 at 14:30 Multivitamins (Multivitamin) 30 ml DAILY NGT Last administered on 09/07/18 16:56; Admin Dose 30 ML; Start 09/07/18 at 14:30 Zinc Sulfate (Zinc Sulfate) 220 mg DAILY PO Last administered on 6/10/19at 16:57; Admin Dose 220 MG; Start 09/07/18 at 14:30 Ascorbic Acid (Vitamin C) 500 mg DAILY NGT Last administered on 09/07/18at 16:57; Admin Dose 500 MG; Start 09/07/18 at 14:30 Folic Acid (Folic Acid) 1 mg DAILY NGT Last administered on 09/07/18at 17:02; Admin Dose 1 MG; Start 09/07/18 at 14:30 Petrolatum (Vaseline) APPLY TO MULTIPLE SC... BID TOP ; Start 09/08/18 at 09:00 Vancomycin HCl 1.5 gm/Sodium Chloride 250 ml @ 83.333 mls/ hr Q36H IVPB ; Start 09/09/18 at 12:00 JUDE GODINEZ Sep 08, 2018 08:53
[2018-09-08] MEDS: DOCUSATE SODIUM 100 MG CAP PO SCH ×2 (09:02→21:00)
[2018-09-08] MEDS: ASCORBIC ACID 500 MG TAB NGT SCH (09:02)
[2018-09-08] MEDS: ZINC SULFATE 220 MG CAP PO SCH (09:03)
[2018-09-08] MEDS: ESCITALOPRAM 10 MG TAB PO SCH (09:03)
[2018-09-08] MEDS: PETROLATUM 5 GM OINT TOP SCH ×2 (09:04→21:13)
[2018-09-08] MEDS: DOXYCYCLINE 100 MG in SOD CHLORIDE 0.9% 250 ML IVPB SCH ×2 (09:06→21:13)
[2018-09-08] MEDS: MULTIVITAMINS 30 ML CUP NGT SCH (09:06)
[2018-09-08] MEDS: HEPARIN 5,000 UNIT/1 ML VIAL SC SCH ×2 (09:09→21:16)
[2018-09-08] MEDS: FOLIC ACID 1 MG TAB NGT SCH (09:13)
--- NOTE | 2018-09-08 11:20 | PN ---
DATE: 09/08/2018 SUBJECTIVE: The patient is seen now on 35% FIO2 on 20 mcg of propofol, arousable. Overall, appears to be very comfortable. A dose of 20 mg Lasix was given this morning. The patient remains on broad spectrum antibiotic. Case discussed with Dr. Ponce pending ABG. I appreciate cardiology consultatio n due to bradycardia, which may be partly due to sedation as well as his amiodarone. PHYSICAL EXAMINATION: VITAL SIGNS: Temperature 97.8, pulse 53, respirations 20, blood pressure 132/56, saturation 100%, cu rrently on 35% FIO2. GENERAL: The patient is in no acute distress, appears to be resting comfortably. CARDIOVASCULAR: S1, S2. LUNGS: Faint rhonchi at the bases, much better. ABDOMEN: Soft, nontender. EXTREMITIES: Trace edema of upper extremities, scattered ecchymosis of the upper extremities. The [facility] does have a [place] to gravity and air mattress bed. LABORATORY DATA: White count jumped up to 15.3, hemoglobin 11.5, hematocrit 36, platelet count of 19 0, neutrophils 93%, lymphocytes 2%. Chemistry: Sodium is 144, potassium 4.1, chloride 115, bicarbon ate 24, BUN is 88, creatinine 1.7 and glucose 147. BNP slightly high at 3670. TSH 0.026. Procalcit onin is slightly high at 0.2. PSA was 1.5. B12 767. Urinalysis was positive on 08/31/2018, which d id show +2 leukocyte esterase but respiratory culture did show Leah albicans, otherwise MRSA scree riley, influenza A and B, Blood cultures and urine cultures were negative during this admission. MEDICATIONS: 1. Vancomycin dose per pharmacy with Vaseline b.i.d. p.r.n. topically. 2. Reglan 5 mg IV q.6h to help with absorption. 3. Multivitamin 30 mL daily. 4. Zinc sulfate 200 daily. 5. Vitamin C 500 mg daily. 6. Folic acid 1 mg daily. 7. Diflucan 100 IV every day. 8. Fentanyl p.r.n., currently off. 9. Prevacid 30 mg daily via NG tube. 10. Doxycycline q.12h. 11. Merrem IV q.12h. 12. Propofol as directed. 13. Clonidine patch every 7 days. 14. Vancomycin dose per pharmacy. 15. Ativan 1 mg q.6h. p.r.n. 16. DuoNeb as directed. 17. HYDRALAZINE p.r.n. 18. Heparin 5000 b.i.d. 19. Dulcolax p.r.n. 20. Ativan 0.5 p.r.n. 21. Colace 100 b.i.d. 22. Solu-Medrol 40 IV q.8h. 23. Lexapro 10 mg daily. 24. Xanax 0.5 at bedtime. 25. Zofran p.r.n. 26. Tylenol p.r.n. 27. Colace p.r.n. 28. Milk of magnesia p.r.n. medications. ASSESSMENT AND PLAN: This is an 87-year-old Afghan male with history of atrial fibrillation, hyper tension, urinary retention, low back pain, depression, who presented with 2 to 3 days, worsening shor tness of breath, was found to have acute respiratory failure, fever, bronchitis developing and worsen ing pneumonia. 1. Respiratory. Chest x-ray today shows still diffuse bilateral patchy infiltrates. Again, the dif ferential may include edema or multifocal pneumonia or pneumonitis. Again, Lasix was given x1. Cont inue supportive care with antibiotics, steroids, breathing treatments currently oxygenating well as w e were able to decrease FIO2 to 35%. Continue supportive care. Serial chest x-ray. Case discussed with Dr. Ponce. Follow up ABG. 2. Cardiovascular. The patient with episodes of bradycardia but hypertensive. Now on clonidine pat ch. Observe. Continue heparin for DVT prophylaxis. I appreciate Dr. Tracey cardiology input. Cont inue gastrointestinal prophylaxis with Prevacid. 3. Infectious disease. Continue aggressive antibiotic management for treatment of ALDS picture on M errem, vancomycin, doxycycline and diflucan. 4. Acute renal failure, partly due to diuretics administration. Monitor electrolytes. Good urine o utput. Otherwise, I appreciate nephrology input. 5. Neurological remains sedated with propofol 20 mcg, arousable, overall comfortable. 6. Continue stool softeners. 7. Dysphagia. The patient currently on 50 mL of Nutren Pulmonary, which he is tolerating, reached g oal. Continue Reglan for another day. Case discussed with nursing staff as the patient did have kinsey rrhea and slightly worsening leukocytosis. We will check stool for C. We will place a rectal tube. We will continue to follow closely. Case discussed with staff. 8. Make sure the patient is comfortable at all times. We will follow closely. Dictated By: SERGIO CERVANTES/NEHAL Conf#: [id number] DID#: [id number] CC: OLIVE ANDREWS MD; SERGIO TREVINO MD;*[facility] [place]*
[2018-09-08] MEDS: FLUCONAZOLE 100 MG/50 ML (PMX) 50 ML IVPB SCH (12:05)
--- NOTE | 2018-09-08 13:26 | CONS ---
Assessment/Plan Assessment/Plan Hospital Course (Demo Recall) Remains intubated no fevers overnight WBC 15.3 platelets 190 neutrophils 93.1 BUN 88 creatinine 1.78 Chest x-ray this morning revealed increased bilateral interstitial and alveolar infiltrates Antimicrobials: Vancomycin, doxycycline, meropenem, fluconazole Microbiology: Sputum culture growing Leah albicans Indwelling's: Endotracheal tube NG tube Mcgowan catheter Antimicrobials: Vanco, Merrem day #11, fluconazole doxycycline Physical examination: Well-developed well-nourished elderly man who is awake in no distress. Head atraumatic normocephalic sclera nonicteric vehicle mucosa dry neck is supple chest rise symmetrical breath sounds with bilateral rhonchi. Heart: S1-S2. Abdomen soft bowel sounds present. Assessment: 1. Acute hypoxemic respiratory failure 2. Pneumonia/ARDS 3. Mild CHF 4. Bradycardia 5. Acute kidney injury 6. Diarrhea Plan: Remains unchanged, stool for C. difficile sent, pending, DC vancomycin, continue other antibiotics start empiric Flagyl follow pulmonary recommendations Consultation Date/Type/Reason Admit Date/Time Aug 29, 2018 at 05:45 Initial Consult Date 08/30/18 Type of Consult id Requesting Provider: SERGIO TREVINO MD Date/Time of Note DATE: 09/08/18 TIME: 13:24 Exam/Review of Systems Exam Vitals Vital Signs Date Temp Pulse Resp B/P (MAP) Pulse Ox O2 O2 Flow FiO2 Time Delivery Rate 09/08/18 54 12:00 09/08/18 20 126/57 98 11:45 (80) 09/08/18 35 11:00 09/08/18 Mechanical 11:00 Ventilator 09/08/18 97.7 08:00 Intake and Output 09/07/18 09/07/18 09/08/18 1515:00 23:00 07:00 IntakeIntake Total 775.259 ml 977.667 ml 970.221 ml OutputOutput Total 360 ml 405 ml 381 ml BalanceBalance 415.259 ml 572.667 ml 589.221 ml Results Result Diagram: 09/08/18 0500 09/08/18 0500 Results 24hrs Laboratory Tests Test 09/08/18 01:32 09/08/18 04:59 09/08/18 05:00 09/08/18 08:53 Vancomycin Level 9.0 L Trough Procalcitonin 0.20 H White Blood Count 15.3 #H Red Blood Count 3.69 L Hemoglobin 11.5 L Hematocrit 35.6 L Mean Corpuscular 96.5 Volume Mean Corpuscular 31.2 Hemoglobin Mean Corpuscular 32.3 Hemoglobin Concen t Red Cell 13.9 Distribution Width Platelet Count 190 Mean Platelet 12.0 H Volume Immature 1.200 H Granulocytes % Neutrophils % 93.1 H Lymphocytes % 2.1 L Monocytes % 3.5 Eosinophils % 0.0 Basophils % 0.1 Nucleated Red 0.0 Blood Cells % Immature 0.180 H Granulocytes # Neutrophils # 14.2 H Lymphocytes # 0.3 L Monocytes # 0.5 Eosinophils # 0.0 Basophils # 0.0 Nucleated Red 0.0 Blood Cells # Sodium Level 144 Potassium Level 4.1 Chloride Level 115 H Carbon Dioxide 24 Level Anion Gap 5 Blood Urea 88 H Nitrogen Creatinine 1.78 H Est Glomerular Filtrat Rate mL/min Glucose Level 147 Calcium Level 7.4 L Phosphorus Level 4.6 Magnesium Level 3.1 H Total Bilirubin 0.3 Direct Bilirubin 0.00 Indirect 0.3 Bilirubin Aspartate Amino 33 Transf (AST/SGOT) Alanine 53 Aminotransferase (ALT/SGPT) Alkaline 74 Phosphatase B-Type 3670 H Natriuretic Peptide Total Protein 4.8 L Albumin 2.4 L Globulin 2.40 Albumin/Globulin 1.00 Ratio Thyroid 0.026 L Stimulating Hormone (TSH) Blood Gas Blood arterial Specimen Source Arterial Blood 09/08/2018 9:55:2 Date Drawn 7 AM Arterial Blood pH 7.414 (Temp corrected) Arterial Blood 35.9 pCO2 (Temp correct) Arterial Blood 78.8 L pO2 (Temp corrected) Arterial Blood 22.5 HCO3 Arterial Blood -1.6 Base Excess Arterial Blood 95.1 Oxygen Saturation Domenico Test ACCEPTAB Arterial Blood Right Radial Gas Puncture Site Arterial 0 Blood Carboxyhemo globin Arterial Blood 0.3 Methemoglobin Blood Gas A-a O2 129.0 H Differential Oxyhemoglobin 94.8 Percent Blood Gas 37.0 Temperature Blood Gas 20.0 Respiration Rate Blood Gas Actual 23 Respiration Rate Blood Gas VENT - AC Modality FiO2 35.0 Blood Gas Tidal 500.0 Volume Blood Gas Low 5.0 PEEP Setting Blood Gas TM Notified Whom Blood Gas 09/08/2018 10:14: Notified Time 13 AM Medications Medication Current Medications IV Flush (NS 3 ml) 3 ml PER PROTOCOL IV ; Start 08/29/18 at 06:00 Ondansetron HCl (Zofran Inj) 4 mg Q6H PRN IV NAUSEA/VOMITING Last administered on 08/31/18 05:02; Admin Dose 4 MG; Start 08/29/18 at 06:00 Acetaminophen (Tylenol Tab) 650 mg Q6H PRN PO .PAIN 1-3 OR TEMP; Start 08/29/18 at 06:00 Docusate Sodium (Colace) 100 mg Q12H PRN PO .CONSTIPATION Last administered on 08/30/18 21:37; Admin Dose 100 MG; Start 08/29/18 at 06:00 Magnesium Hydroxide (Milk Of Mag) 30 ml DAILY PRN PO .CONSTIPATION Last administered on 09/02/18 05:16; Admin Dose 30 ML; Start 08/29/18 at 06:00 Alprazolam (Xanax) 0.5 mg QHS PO Last administered on 09/07/18 20:56; Admin Dose 0.5 MG; Start 08/29/18 at 21:00 Escitalopram Oxalate (Lexapro) 20 mg DAILY PO Last administered on 09/08/18 09:03; Admin Dose 20 MG; Start 08/30/18 at 09:00 Methylprednisolone Sodium Succinate (Solu-Medrol) 40 mg Q8 IV Last administered on 09/08/18 05:45; Admin Dose 40 MG; Start 08/30/18 at 22:00 Docusate Sodium (Colace) 100 mg BID PO Last administered on 09/08/18 09:02; Admin Dose 100 MG; Start 08/31/18 at 13:30 Lorazepam (Ativan) 0.5 mg Q6H PRN PO ANXIETY; Start 09/02/18 at 13:00 Bisacodyl (Dulcolax Supp) 10 mg DAILY PRN [place] CONSTIPATION; Start 09/03/18 at 12:00 Heparin Sodium (Porcine) (Heparin (5000 Units/1ml)) 5,000 unit BID SC Last administered on 09/08/18 09:09; Admin Dose 5,000 UNIT; Start 09/03/18 at 14:00 Hydralazine HCl (Apresoline) 10 mg Q3 PRN IV ELEVATED SYSTOLIC BP Last administered on 09/05/18 19:48; Admin Dose 10 MG; Start 09/03/18 at 18:00 Albuterol/ Ipratropium (Duoneb) 3 ml Q2H RESP THERAPY PRN HHN SHORTNESS OF BREATH; Start 09/03/18 at 20:00 Lorazepam (Ativan) 1 mg Q6H PRN IV anxiety Last administered on 09/06/18at 00:00; Admin Dose 1 MG; Start 09/05/18 at 09:00 Clonidine HCl (Catapres-Tts 1 Patch) 1 patch Q7D TRANSDERM Last administered on 09/05/18at 14:32; Admin Dose 1 PATCH; Start 09/05/18 at 13:30 Vancomycin HCl (Vanco Iv Per Pharmacy) VANCOMYCIN PER PHARM... PER PROTOCOL XX ; Start 09/05/18 at 13:30 Propofol 100 ml @ 2.509 mls/ hr Q12H IV Last administered on 09/08/18 10:52; Admin Dose 10.037 MLS/HR; Start 09/06/18 at 09:30 Lansoprazole (Prevacid) 30 mg DAILY@06 NGT Last administered on 09/08/18at 05:44; Admin Dose 30 MG; Start 09/07/18 at 06:00 Meropenem/Sodium Chloride 50 ml @ 100 mls/hr Q12H IVPB Last administered on 09/08/18 05:50; Admin Dose 100 MLS/HR; Start 09/06/18 at 18:00 Doxycycline Hyclate 100 mg/ Sodium Chloride 250 ml @ 250 mls/hr Q12 IVPB Last administered on 09/08/18 09:06; Admin Dose 250 MLS/HR; Start 09/06/18 at 21:00 Fentanyl 100 ml @ 2.5 mls/hr TITRATE IV Last administered on 09/07/18 09:19; Admin Dose 2.5 MLS/HR; Start 09/07/18 at 09:30 Fluconazole/ Sodium Chloride 50 ml @ 50 mls/hr Q24H IVPB Last administered on 09/08/18 12:05; Admin Dose 50 MLS/HR; Start 09/07/18 at 11:30 Metoclopramide HCl (Reglan) 5 mg Q6 IV Last administered on 09/08/18at 12:05; Admin Dose 5 MG; Start 09/07/18 at 14:30 Multivitamins (Multivitamin) 30 ml DAILY NGT Last administered on 09/08/18 09:06; Admin Dose 30 ML; Start 09/07/18 at 14:30 Zinc Sulfate (Zinc Sulfate) 220 mg DAILY PO Last administered on 09/08/18 09 :03; Admin Dose 220 MG; Start 09/07/18 at 14:30 Ascorbic Acid (Vitamin C) 500 mg DAILY NGT Last administered on 09/08/18 09:02; Admin Dose 500 MG; Start 09/07/18 at 14:30 Folic Acid (Folic Acid) 1 mg DAILY NGT Last administered on 09/08/18 09:13; Admin Dose 1 MG; Start 09/07/18 at 14:30 Petrolatum (Vaseline) APPLY TO MULTIPLE SC... BID TOP Last administered on 09/08/18 09:04; Admin Dose 1 EA; Start 09/08/18 at 09:00 Vancomycin HCl 1.5 gm/Sodium Chloride 250 ml @ 83.333 mls/ hr Q36H IVPB ; Start 09/09/18 at 12:00 TAYLOR RIZZO NP Sep 08, 2018 13:26
[2018-09-08] MEDS ORDERED: LIDOCAINE 1% (MPF) 5 ML VIAL SC ONE (15:00)
[2018-09-08] MEDS: metroNIDAZOLE 500 MG TAB PO SCH ×2 (16:50→21:14)
[2018-09-08] MEDS: ALPRAZOLAM 0.5 MG TAB PO SCH (21:18)
[2018-09-09] VITALS (56 sets, daily range): BP systolic 113–170; BP diastolic 55–137; PULSE 56–72; RESP 17–27
[2018-09-09] MEDS: METOCLOPRAMIDE 10 MG INJ IV SCH ×4 (00:19→17:25)
[2018-09-09] MEDS: PROPOFOL 100 ML IV SCH ×3 (02:13→21:25)
[2018-09-09] MEDS: metroNIDAZOLE 500 MG TAB PO SCH ×3 (06:14→22:34)
[2018-09-09] MEDS: METHYLPREDNISOLONE 40 MG INJ IV SCH (06:14)
[2018-09-09] MEDS: LANSOPRAZOLE 30 MG CAP NGT SCH (06:14)
[2018-09-09] MEDS: MEROPENEM 1 GM/50ML(PMX) 50 ML IVPB SCH (06:14)
--- NOTE | 2018-09-09 08:17 | PN ---
DATE: 09/09/2018 SUBJECTIVE: The patient remains critically ill on full ventilatory support. No other acute events n oted. No hemoptysis, hematemesis, hematochezia. OBJECTIVE: VITAL SIGNS: Blood pressure is 137/70, respirations 20, pulse 60, temperature 97.7. HEENT: Head is normocephalic. NECK: Supple. HEART: Regular rate. LUNGS: Show diminished breath sounds at the base. ABDOMEN: Soft, nontender to palpation without rebound or guarding. EXTREMITIES: Negative for clubbing, cyanosis, no edema. DERMATOLOGIC: No rashes. MUSCULOSKELETAL: No joint effusions. NEUROLOGIC: No change in exam. MEDICATIONS: The patient's medications have been reviewed. LABORATORY DATA: Has been reviewed. IMAGING STUDIES: Have been reviewed. ASSESSMENT AND PLAN: 1. Nonoliguric acute kidney injury on top of chronic kidney disease with unknown baseline creatinine . Etiology of RICHARD is secondary to hemodynamics. Renal function has appeared to have stabilized. Wi ll continue current treatment plan. 2. Hypernatremia. Continue free water flushes. We will increase rate to 300 mL q.4h. 3. Anemia. Monitor hemoglobin and hematocrit levels. 4. Mineral bone disorder. Monitor calcium and phosphorus levels. 5. Ventilator-dependent respiratory failure. Vent settings and ABG was reviewed. Continue to monit or. Follow up with pulmonary. 6. Sepsis secondary to pneumonia. Continue current antibiotic regimen. 7. Acute encephalopathy, etiology is toxic metabolic. 8. Benign prostatic hypertrophy. 9. Diastolic heart failure. Continue to monitor I's and O's closely. Continue intermittent diureti c therapy. Dictated By: ANGELA BALLARD DO NR/NTS Conf#: [id number] DID#: [id number] CC: SERGIO TREVINO MD; OLIVE ANDREWS MD;*EndCC*
[2018-09-09] MEDS: DOXYCYCLINE 100 MG in SOD CHLORIDE 0.9% 250 ML IVPB SCH ×2 (08:22→21:26)
[2018-09-09] MEDS: FOLIC ACID 1 MG TAB NGT SCH (08:24)
[2018-09-09] MEDS: MULTIVITAMINS 30 ML CUP NGT SCH (08:24)
[2018-09-09] MEDS: ASCORBIC ACID 500 MG TAB NGT SCH (08:25)
[2018-09-09] MEDS: ESCITALOPRAM 10 MG TAB PO SCH (08:25)
[2018-09-09] MEDS: ZINC SULFATE 220 MG CAP PO SCH (08:26)
[2018-09-09] MEDS: PETROLATUM 5 GM OINT TOP SCH ×2 (08:26→21:26)
[2018-09-09] MEDS: HEPARIN 5,000 UNIT/1 ML VIAL SC SCH ×2 (08:27→21:28)
[2018-09-09] MEDS: DOCUSATE SODIUM 100 MG CAP PO SCH ×2 (08:30→21:26)
--- NOTE | 2018-09-09 09:04 | CONS ---
Assessment/Plan Assessment/Plan Assessment/Plan (Daily) Chest x-ray showing improvement in bilateral extensive pneumonia. There is a mild interstitial pattern present. Possibly some element of pulmonary edema. Ventilator setting; AC of 20, tidal volume 500, PEEP of 5, 30% FiO2. Patient is on propofol 20 mics per kilogram per minute. Assessment and recommendations; 1. Patient admitted with severe bilateral community-acquired pneumonia, failed BiPAP requiring intubation. There has been improvement in oxygenation as well as chest x-ray. Patient currently on appropriate antimicrobial regimen. 2. Leukocytosis, likely steroid response. 3. History of COPD. 4. History of cardiac arrhythmia. 5. Chronic renal insufficiency. Hold sedation to assess mental status. Once the patient is off sedation, he will be evaluated for possible weaning from ventilator. Meanwhile continue current supportive care. 35 minutes of critical care time was spent evaluating the patient. Consultation Date/Type/Reason Admit Date/Time Aug 29, 2018 at 05:45 Initial Consult Date 08/30/18 Type of Consult Pulmonary Patient condition is tenuous. On BiPAP. Having significant chest congestion. Take slightly yellow-tinged secretions noted on suctioning. Patient requiring deep nasotracheal suctioning. General exam; elderly male, mildly lethargic. Requesting Provider: SERGIO TREVINO MD Date/Time of Note DATE: 09/09/18 TIME: 09:01 24 HR Interval Summary Free Text/Dictation Patient's condition is critical. Patient however has remained hemodynamically stable. General exam; elderly male, orally intubated, sedated, currently in no distress. Exam/Review of Systems Exam Vitals Vital Signs Date Temp Pulse Resp B/P (MAP) Pulse Ox O2 O2 Flow FiO2 Time Delivery Rate 09/09/18 60 20 98 06:30 09/09/18 137/70 Mechanical 06:00 (92) Ventilator 09/09/18 30 05:00 09/09/18 97.6 04:00 Intake and Output 09/08/18 09/08/18 09/09/18 1515:00 23:00 07:00 IntakeIntake Total 882.96 ml 926.942 ml 608.949 ml OutputOutput Total 1015 ml 709 ml 318 ml BalanceBalance -132.04 ml 217.942 ml 290.949 ml Exam H ENT exam; supple neck, no JVD. No lymphadenopathy. Midline trachea. No thyromegaly. Orally intubated. Orogastric tube in place. Patient has carious teeth. Chest exam; diminished breath sounds bilaterally. S1-S2 audible, no murmurs. Regular rhythm. Abdomen exam; soft, nondistended. Nontender. Bowel sounds audible. Extremity exam; no peripheral edema. Patient does have patchy ecchymosis. 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 Results Result Diagram: 09/09/1817 09/09/18 0517 Results 24hrs Laboratory Tests Test 09/09/18 05:17 White Blood Count 25.1 #H Red Blood Count 4.78 # Hemoglobin 14.8 # Hematocrit 45.6 # Mean Corpuscular Volume 95.4 Mean Corpuscular Hemoglobin 31.0 Mean Corpuscular Hemoglobin Concent 32.5 Red Cell Distribution Width 14.2 Platelet Count 235 # Mean Platelet Volume 11.8 H Immature Granulocytes % 1.200 H Neutrophils % Lymphocytes % Monocytes % Eosinophils % Basophils % Nucleated Red Blood Cells % 0.0 Immature Granulocytes # 0.300 H Neutrophils # Lymphocytes # Monocytes # Eosinophils # Basophils # Nucleated Red Blood Cells # Sodium Level 146 H Potassium Level 4.2 Chloride Level 116 H Carbon Dioxide Level 23 Anion Gap 7 Blood Urea Nitrogen 94 H Creatinine 1.86 H Est Glomerular Filtrat Rate mL/min Glucose Level 151 Calcium Level 7.4 L Phosphorus Level 5.5 H Magnesium Level 3.1 H Medications Medication Current Medications IV Flush (NS 3 ml) 3 ml PER PROTOCOL IV ; Start 08/29/18 at 06:00 Ondansetron HCl (Zofran Inj) 4 mg Q6H PRN IV NAUSEA/VOMITING Last administered on 08/31/18at 05:02; Admin Dose 4 MG; Start 08/29/18 at 06:00 Acetaminophen (Tylenol Tab) 650 mg Q6H PRN PO .PAIN 1-3 OR TEMP; Start 08/29/18 at 06:00 Docusate Sodium (Colace) 100 mg Q12H PRN PO .CONSTIPATION Last administered on 08/30/18at 21:37; Admin Dose 100 MG; Start 08/29/18 at 06:00 Magnesium Hydroxide (Milk Of Mag) 30 ml DAILY PRN PO .CONSTIPATION Last administered on 09/02/18at 05:16; Admin Dose 30 ML; Start 08/29/18 at 06:00 Alprazolam (Xanax) 0.5 mg QHS PO Last administered on 09/08/18 21:18; Admin Dose 0.5 MG; Start 08/29/18 at 21:00 Escitalopram Oxalate (Lexapro) 20 mg DAILY PO Last administered on 09/09/18 08:25; Admin Dose 20 MG; Start 08/30/18 at 09:00 Methylprednisolone Sodium Succinate (Solu-Medrol) 40 mg Q8 IV Last administered on 09/09/18 06:14; Admin Dose 40 MG; Start 08/30/18 at 22:00 Docusate Sodium (Colace) 100 mg BID PO Last administered on 09/08/18 09:02; Admin Dose 100 MG; Start 08/31/18 at 13:30 Lorazepam (Ativan) 0.5 mg Q6H PRN PO ANXIETY; Start 09/02/18 at 13:00 Bisacodyl (Dulcolax Supp) 10 mg DAILY PRN [place] CONSTIPATION; Start 09/03/18 at 1 2:00 Heparin Sodium (Porcine) (Heparin (5000 Units/1ml)) 5,000 unit BID SC Last administered on 09/09/18 08:27; Admin Dose 5,000 UNIT; Start 09/03/18 at 14:00 Hydralazine HCl (Apresoline) 10 mg Q3 PRN IV ELEVATED SYSTOLIC BP Last administered on 09/05/18 19:48; Admin Dose 10 MG; Start 09/03/18 at 18:00 Albuterol/ Ipratropium (Duoneb) 3 ml Q2H RESP THERAPY PRN HHN SHORTNESS OF BREATH; Start 09/03/18 at 20:00 Lorazepam (Ativan) 1 mg Q6H PRN IV anxiety Last administered on 09/06/18 00:00; Admin Dose 1 MG; Start 09/05/18 at 09:00 Clonidine HCl (Catapres-Tts 1 Patch) 1 patch Q7D TRANSDERM Last administered on 09/05/18 14:32; Admin Dose 1 PATCH; Start 09/05/18 at 13:30 Propofol 100 ml @ 2.509 mls/ hr Q12H IV Last administered on 09/09/18 02:13; Admin Dose 10.037 MLS/HR; Start 09/06/18 at 09:30 Lansoprazole (Prevacid) 30 mg DAILY@06 NGT Last administered on 09/09/18 06:14; Admin Dose 30 MG; Start 09/07/18 at 06:00 Meropenem/Sodium Chloride 50 ml @ 100 mls/hr Q12H IVPB Last administered on 09/09/18 06:14; Admin Dose 100 MLS/HR; Start 09/06/18 at 18:00 Doxycycline Hyclate 100 mg/ Sodium Chloride 250 ml @ 250 mls/hr Q12 IVPB Last administered on 09/09/18 08:22; Admin Dose 250 MLS/HR; Start 09/06/18 at 21:00 Fentanyl 100 ml @ 2.5 mls/hr TITRATE IV Last administered on 09/07/18 09:19; Admin Dose 2.5 MLS/HR; Start 09/07/18 at 09:30 Fluconazole/ Sodium Chloride 50 ml @ 50 mls/hr Q24H IVPB Last administered on 09/08/18 12:05; Admin Dose 50 MLS/HR; Start 09/07/18 at 11:30 Metoclopramide HCl (Reglan) 5 mg Q6 IV Last administered on 09/09/18 06:14; Admin Dose 5 MG; Start 09/07/18 at 14:30 Multivitamins (Multivitamin) 30 ml DAILY NGT Last administered on 09/09/18 08:24; Admin Dose 30 ML; Start 09/07/18 at 14:30 Zinc Sulfate (Zinc Sulfate) 220 mg DAILY PO Last administered on 09/09/18 08:26; Admin Dose 220 MG; Start 09/07/18 at 14:30 Ascorbic Acid (Vitamin C) 500 mg DAILY NGT Last administered on 09/09/18 08:25; Admin Dose 500 MG; Start 09/07/18 at 14:30 Folic Acid (Folic Acid) 1 mg DAILY NGT Last administered on 09/09/18 08:24; Admin Dose 1 MG; Start 09/07/18 at 14:30 Petrolatum (Vaseline) APPLY TO MULTIPLE SC... BID TOP Last administered on 09/09/18 08:26; Admin Dose 1 EA; Start 09/08/18 at 09:00 Metronidazole (Flagyl) 500 mg Q8 PO Last administered on 6/12/19at 06:14; Admin Dose 500 MG; Start 09/08/18 at 14:00 JUDE GODINEZ Sep 09, 2018 09:04
[2018-09-09] MEDS ORDERED: LIDOCAINE 1% (MPF) 5 ML VIAL SC ONE (10:30)
[2018-09-09] MEDS: FLUCONAZOLE 100 MG/50 ML (PMX) 50 ML IVPB SCH (11:24)
[2018-09-09] MEDS ORDERED: VANCOMYCIN HCL 1.5 GM in SOD CHLORIDE 0.9% 250 ML IVPB SCH (12:00)
--- NOTE | 2018-09-09 12:55 | CONS ---
Assessment/Plan Assessment/Plan Hospital Course (Demo Recall) Patient remains extubated and sedated no fevers overnight, T-max this morning 99.5 WBC 25.1 platelets 235 neutrophils 94 BUN 94 creatinine 1.86 Chest x-ray revealed sick no significant interval change Antimicrobials: doxycycline, meropenem, fluconazole Flagyl Microbiology: Sputum culture growing Leah albicans Indwelling's: Endotracheal tube NG tube Mcgowan catheter Antimicrobials: Vanco, Merrem day #11, fluconazole doxycycline Physical examination: Well-developed well-nourished elderly man who is awake in no distress. Head atraumatic normocephalic sclera nonicteric vehicle mucosa dry neck is supple chest rise symmetrical breath sounds with bilateral rhonchi. Heart: S1-S2. Abdomen soft bowel sounds present. Assessment: 1. Acute hypoxemic respiratory failure 2. Pneumonia/ARDS 3. Mild CHF 4. Bradycardia 5. Acute kidney injury 6. Diarrhea Plan: Remains unchanged, pending stool for C. difficile, dc Merrem, continue other antibiotics, follow pulmonary recommendations, f/u labs in am, repeat cx's Consultation Date/Type/Reason Admit Date/Time Aug 29, 2018 at 05:45 Initial Consult Date 08/30/18 Type of Consult id Requesting Provider: SERGIO TREVINO MD Date/Time of Note DATE: 09/09/18 TIME: 12:53 Exam/Review of Systems Exam Vitals Vital Signs Date Temp Pulse Resp B/P (MAP) Pulse Ox O2 O2 Flow FiO2 Time Delivery Rate 09/09/18 70 12:00 09/09/18 20 99 30 11:00 09/09/18 146/68 10:30 (94) 09/09/18 Mechanical 10:00 Ventilator 09/09/18 99.5 08:00 Intake and Output 09/08/18 09/08/18 09/09/18 1515:00 23:00 07:00 IntakeIntake Total 882.96 ml 926.942 ml 608.949 ml OutputOutput Total 1015 ml 709 ml 318 ml BalanceBalance -132.04 ml 217.942 ml 290.949 ml Results Result Diagram: 09/09/18 0517 09/09/18 0517 Results 24hrs Laboratory Tests Test 09/09/18 05:17 White Blood Count 25.1 #H Red Blood Count 4.78 # Hemoglobin 14.8 # Hematocrit 45.6 # Mean Corpuscular Volume 95.4 Mean Corpuscular Hemoglobin 31.0 Mean Corpuscular Hemoglobin Concent 32.5 Red Cell Distribution Width 14.2 Platelet Count 235 # Mean Platelet Volume 11.8 H Immature Granulocytes % 1.200 H Neutrophils % Segmented Neutrophils % (Manual) 94 H Band Neutrophils % (Manual) 3 Lymphocytes % Monocytes % Monocytes % (Manual) 2 Eosinophils % Basophils % Myelocytes % (Manual) 1 H Nucleated Red Blood Cells % 0.0 Immature Granulocytes # 0.300 H Neutrophils # Neutrophils # (Manual) 23.8 H Band Neutrophils # 0.7 H Lymphocytes # Monocytes # Monocytes # (Manual) 0.5 Eosinophils # Basophils # Myelocytes # 0.2 H Nucleated Red Blood Cells # Platelet Estimate NORMAL Giant Platelets 1 H Poikilocytosis 3+ Anisocytosis 1+ Macrocytosis 1+ Ovalocytes 2+ Sodium Level 146 H Potassium Level 4.2 Chloride Level 116 H Carbon Dioxide Level 23 Anion Gap 7 Blood Urea Nitrogen 94 H Creatinine 1.86 H Est Glomerular Filtrat Rate mL/min Glucose Level 151 Calcium Level 7.4 L Phosphorus Level 5.5 H Magnesium Level 3.1 H Medications Medication Current Medications IV Flush (NS 3 ml) 3 ml PER PROTOCOL IV ; Start 08/29/18 at 06:00 Ondansetron HCl (Zofran Inj) 4 mg Q6H PRN IV NAUSEA/VOMITING Last administered on 08/31/18at 05:02; Admin Dose 4 MG; Start 08/29/18 at 06:00 Acetaminophen (Tylenol Tab) 650 mg Q6H PRN PO .PAIN 1-3 OR TEMP; Start 08/29/18 at 06:00 Docusate Sodium (Colace) 100 mg Q12H PRN PO .CONSTIPATION Last administered on 08/30/18at 21:37; Admin Dose 100 MG; Start 08/29/18 at 06:00 Magnesium Hydroxide (Milk Of Mag) 30 ml DAILY PRN PO .CONSTIPATION Last administered on 09/02/18 05:16; Admin Dose 30 ML; Start 08/29/18 at 06:00 Alprazolam (Xanax) 0.5 mg QHS PO Last administered on 09/08/18 21:18; Admin Dose 0.5 MG; Start 08/29/18 at 21:00 Escitalopram Oxalate (Lexapro) 20 mg DAILY PO Last administered on 09/09/18 08:25; Admin Dose 20 MG; Start 08/30/18 at 09:00 Docusate Sodium (Colace) 100 mg BID PO Last administered on 09/08/18 09:02; Admin Dose 100 MG; Start 08/31/18 at 13:30 Lorazepam (Ativan) 0.5 mg Q6H PRN PO ANXIETY; Start 09/02/18 at 13:00 Bisacodyl (Dulcolax Supp) 10 mg DAILY PRN [place] CONSTIPATION; Start 09/03/18 at 12:00 Heparin Sodium (Porcine) (Heparin (5000 Units/1ml)) 5,000 unit BID SC Last administered on 09/09/18 08:27; Admin Dose 5,000 UNIT; Start 09/03/18 at 14:00 Hydralazine HCl (Apresoline) 10 mg Q3 PRN IV ELEVATED SYSTOLIC BP Last administered on 09/05/18 19:48; Admin Dose 10 MG; Start 09/03/18 at 18:00 Albuterol/ Ipratropium (Duoneb) 3 ml Q2H RESP THERAPY PRN HHN SHORTNESS OF BREATH; Start 09/03/18 at 20:00 Lorazepam (Ativan) 1 mg Q6H PRN IV anxiety Last administered on 09/06/18 00:00; Admin Dose 1 MG; Start 09/05/18 at 09:00 Clonidine HCl (Catapres-Tts 1 Patch) 1 patch Q7D TRANSDERM Last administered on 09/05/18 14:32; Admin Dose 1 PATCH; Start 09/05/18 at 13:30 Propofol 100 ml @ 2.509 mls/ hr Q12H IV Last administered on 09/09/18 02:13; Admin Dose 10.037 MLS/HR; Start 09/06/18 at 09:30 Lansoprazole (Prevacid) 30 mg DAILY@06 NGT Last administered on 09/09/18 06:14; Admin Dose 30 MG; Start 09/07/18 at 06:00 Meropenem/Sodium Chloride 50 ml @ 100 mls/hr Q12H IVPB Last administered on 09/09/18 06:14; Admin Dose 100 MLS/HR; Start 09/06/18 at 18:00 Doxycycline Hyclate 100 mg/ Sodium Chloride 250 ml @ 250 mls/hr Q12 IVPB Last administered on 09/09/18 08:22; Admin Dose 250 MLS/HR; Start 09/06/18 at 21:00 Fentanyl 100 ml @ 2.5 mls/hr TITRATE IV Last administered on 09/07/18 09:19; Admin Dose 2.5 MLS/HR; Start 09/07/18 at 09:30 Fluconazole/ Sodium Chloride 50 ml @ 50 mls/hr Q24H IVPB Last administered on 09/09/18 11:24; Admin Dose 50 MLS/HR; Start 09/07/18 at 11:30 Metoclopramide HCl (Reglan) 5 mg Q6 IV Last administered on 09/09/18 11:24; Admin Dose 5 MG; Start 09/07/18 at 14:30 Multivitamins (Multivitamin) 30 ml DAILY NGT Last administered on 09/09/18 08:24; Admin Dose 30 ML; Start 09/07/18 at 14:30 Zinc Sulfate (Zinc Sulfate) 220 mg DAILY PO Last administered on 09/09/18 0 8:26; Admin Dose 220 MG; Start 09/07/18 at 14:30 Ascorbic Acid (Vitamin C) 500 mg DAILY NGT Last administered on 09/09/18 08:25; Admin Dose 500 MG; Start 09/07/18 at 14:30 Folic Acid (Folic Acid) 1 mg DAILY NGT Last administered on 09/09/18 08:24; Admin Dose 1 MG; Start 09/07/18 at 14:30 Petrolatum (Vaseline) APPLY TO MULTIPLE SC... BID TOP Last administered on 09/09/18 08:26; Admin Dose 1 EA; Start 09/08/18 at 09:00 Metronidazole (Flagyl) 500 mg Q8 PO Last administered on 09/09/18 06:14; Admin Dose 500 MG; Start 09/08/18 at 14:00 IV Flush (NS 10 ml) 10 ml PRN PRN IV FLUSH LINE; Start 09/09/18 at 11:30 TAYLOR RIZZO NP Sep 09, 2018 12:55
--- NOTE | 2018-09-09 14:32 | PN ---
DATE: 09/09/2018 SUBJECTIVE: The patient was seen, appears to be comfortable, remains on propofol, sedated. Attempt to put him on CPAP ____ as the patient remains anxious with increased blood pressure and heart rate n oted. Noted also is increased WBC to 25,000. Case was discussed with infectious disease. Stool for C. diff came back negative. PHYSICAL EXAMINATION: VITAL SIGNS: Temperature is 98.9, pulse 72, respirations 23, blood pressure 166/72, earlier was 120/ 65, saturation 100%, currently on 30% FiO2. GENERAL: The patient is in no acute distress, resting comfortably. CARDIOVASCULAR: S1, S2. LUNGS: Actually clear bilaterally. ABDOMEN: Soft, nontender. EXTREMITIES: Just trace lower extremity edema. LABORATORY DATA: White count jumped to 25.1, hemoglobin 14.8, hematocrit 46, platelet count 235, luisa trophils 94%, bands 3%. Chemistry: Sodium 146, potassium 4.2, chloride 116, bicarbonate 23, BUN 94, creatinine 1.86 and glucose 151. Stool for C. diff negative. Respiratory culture shows Leah alb icans. MEDICATIONS: Include: 1. Flagyl 500 q.8. 2. Vaseline b.i.d. topical. 3. Reglan 5 mg q.6 hours per protocol IV. 4. ____ 30 mL daily. 5. Zinc sulfate 220 daily. 6. Vitamin C 500 mg daily. 7. Folic acid 1 mg daily. 8. Diflucan IV daily per pharmacy. 9. Fentanyl currently off. 10. Prevacid 30 mg daily. 11. Doxycycline IV q.12. 12. Propofol as directed. 13. Clonidine patch TTS 1 weekly. 14. Ativan 1 mg q. 6 p.r.n. 15. DuoNeb q.2 p.r.n. 16. Hydralazine 10 mg p.r.n. IV. 17. Heparin 5000 b.i.d. 18. Dulcolax p.r.n. 19. Ativan p.r.n. 20. Colace p.r.n. 21. Lexapro 20 mg daily. 22. Xanax 0.5 at bedtime. 23. Zofran. 24. Tylenol. 25. Colace. 26. Milk of Magnesia p.r.n. ASSESSMENT AND PLAN: This is a very unfortunate 87-year-old [place] male with history of atrial fib rillation, hypertension, urinary retention, low back pain, depression, who presents with 2 to 3 days of worsening shortness breath, was found to be in acute respiratory failure, also with fevers, bronch itis and worsening patchy infiltrates. 1. Respiratory: The patient with bilateral patchy infiltrates suggestive of acute respiratory distr ess syndrome picture status post diuretic therapy, antibiotics, steroids. We tapered off the steroid s. Lasix p.r.n. Continue serial chest x-ray. Currently on 30% FiO2, saturating well. May consider extubation and close monitoring. Dr. Ponce is following. 2. Cardiovascular: Vitals remain stable. On clonidine patch. Continue heparin for deep venous thr ombosis prophylaxis. 3. Gastrointestinal: Continue Prevacid for gastrointestinal prophylaxis. H and H is stable. 4. Infectious disease: The patient with worsening leukocytosis. Continue to monitor and trend. An tibiotics per Dr. Andersen. Merrem was discontinued. 5. Acute renal failure in the setting of diuretics. Observe. Monitor urine output. Monitor electr olytes. Nephrology is following. 6. Neurological: Remains on propofol, sedated, comfortable. 7. Continue stool softener. 8. Dysphagia. Continue Nutren Pulmonary at 50 mL an hour. 9. Diarrhea. No evidence of Clostridium difficile. Empirically started on Flagyl. Continue to mon itor white count. Monitor for fevers and overall condition. Overall condition is guarded. Family is at bedside. Plan of care was discussed. We will follow. Dictated By: SERGIO CERVANTES/NEHAL Conf#: [id number] DID#: [id number] CC: OLIVE ANDREWS MD;*End*
--- NOTE | 2018-09-09 20:22 | CONS ---
Consult Date/Type/Reason Admit Date/Time Aug 29, 2018 at 05:45 Initial Consult Date 09/07/18 Type of Consultation: cv Requesting Provider: SERGIO TREVINO MD Date/Time of Note DATE: 09/09/18 TIME: 20:20 Subjective Interventional cardiology follow-up progress note Subjective: Case discussed with the staff and telemetry was reviewed. Patient has remained sinus rhythm . HR is much better now. No long pauses reported. No significant other arrhythmias reported. Patient remains intubated on the vent in the ICU nonverbal. Minimal secretions per RN report O General: Elderly gentleman. Status post intubation on the vent HEENT: NC/AT. pupils are equal. round. NECK: NO JVD. no stridor. CV: RRR. systolic murmur; no gallop or rubs. PULM: no wheezing + rhonchi. GI: SOFT, NT, ND, no rebound or guarding Extremity: trace B/L LE edema. no clubbing. neuro: sedated Psych: calm rectal: deferred EKG normal sinus rhythm Chest x-ray on admission showed: 1. Right basilar interstitial opacities, new from the prior examination from a few hours prior, likely reflecting atelectasis. 2. Mild prominence of the interstitial markings, may reflect mild underlying interstitial edema or chronic lung changes. 3. Mild cardiomegaly and aortic atherosclerosis. Chest x-ray done on 09/06/2018 shows: 1. Atherosclerosis of the thoracic aorta. 2. Persistent bilateral pulmonary infiltrates which could represent infection or non infection related edema or combination of the 2. 3. Endotracheal and nasogastric tubes in place. Echocardiogram done on 08/29/2018 which was personally reviewed shows: There is mild to mod enlargement of left atrium. Normal left ventricular systolic function. Normal left ventricular cavity size. Normal left ventricular wall thickness. Ejection fraction is visually estimated at 60-65 %. Normal appearance of the mitral valve. Mild mitral valve regurgitation. Normal appearance of the aortic valve. No aortic regurgitation. Normal appearance of the tricuspid valve. The estimated Peak RVSP is 53 mmHg. There is mild tricuspid regurgitation. The IVC is not well visualized. Objective Vitals Vital Signs Date Temp Pulse Resp B/P (MAP) Pulse Ox O2 O2 Flow FiO2 Time Delivery Rate 09/09/18 71 20 100 30 19:50 09/09/18 113/63 17:30 (80) 09/09/18 Mechanical 17:00 Ventilator 09/09/18 98.8 16:00 Intake and Output 09/08/18 09/08/18 09/09/18 1515:00 23:00 07:00 IntakeIntake Total 882.96 ml 926.942 ml 668.949 ml OutputOutput Total 1015 ml 709 ml 358 ml BalanceBalance -132.04 ml 217.942 ml 310.949 ml Results/Medications Result Diagram: 09/09/18 0517 09/09/18 0517 Results 24 hrs Laboratory Tests Test 09/09/18 05:17 White Blood Count 25.1 #H Red Blood Count 4.78 # Hemoglobin 14.8 # Hematocrit 45.6 # Mean Corpuscular Volume 95.4 Mean Corpuscular Hemoglobin 31.0 Mean Corpuscular Hemoglobin Concent 32.5 Red Cell Distribution Width 14.2 Platelet Count 235 # Mean Platelet Volume 11.8 H Immature Granulocytes % 1.200 H Neutrophils % Segmented Neutrophils % (Manual) 94 H Band Neutrophils % (Manual) 3 Lymphocytes % Monocytes % Monocytes % (Manual) 2 Eosinophils % Basophils % Myelocytes % (Manual) 1 H Nucleated Red Blood Cells % 0.0 Immature Granulocytes # 0.300 H Neutrophils # Neutrophils # (Manual) 23.8 H Band Neutrophils # 0.7 H Lymphocytes # Monocytes # Monocytes # (Manual) 0.5 Eosinophils # Basophils # Myelocytes # 0.2 H Nucleated Red Blood Cells # Platelet Estimate NORMAL Giant Platelets 1 H Poikilocytosis 3+ Anisocytosis 1+ Macrocytosis 1+ Ovalocytes 2+ Sodium Level 146 H Potassium Level 4.2 Chloride Level 116 H Carbon Dioxide Level 23 Anion Gap 7 Blood Urea Nitrogen 94 H Creatinine 1.86 H Est Glomerular Filtrat Rate mL/min Glucose Level 151 Calcium Level 7.4 L Phosphorus Level 5.5 H Magnesium Level 3.1 H Home Meds Reported Medications Losartan Potassium* (Losartan Potassium*) 50 Mg Tablet, 50 MG PO DAILY, TAB 08/29/18 Simvastatin (Simvastatin) 20 Mg Tablet, 20 MG PO QHS for 90 Days, #90 08/29/18 Furosemide* (Furosemide*) 40 Mg Tablet, 40 MG PO DAILY for 90 Days, #90 08/29/18 Potassium Chloride (K-Tab ER) 8 Meq Tablet.er, 8 MEQ PO BID for 90 Days, #180 08/29/18 Escitalopram Oxalate* (Escitalopram Oxalate*) 10 Mg Tablet, 20 MG PO DAILY for 90 Days, #90 08/29/18 Hydrocodone Bit-Acetaminophen (Hydrocodone Bit-APAP) 5-325MG Tablet, 1 TAB PO DAILY 08/29/18 Dexlansoprazole (Dexilant) 60 Mg Tree., 60 MG PO DAILY for 90 Days, #90 08/29/18 Amiodarone Hcl* (Amiodarone Hcl*) 200 Mg Tablet, 200 MG PO DAILY for 90 Days, #90 08/29/18 Alprazolam* (Alprazolam*) 0.5 Mg Tablet, 0.5 MG PO QHS for 30 Days, #30 08/29/18 Medications Current Medications IV Flush (NS 3 ml) 3 ml PER PROTOCOL IV ; Start 08/29/18 at 06:00 Ondansetron HCl (Zofran Inj) 4 mg Q6H PRN IV NAUSEA/VOMITING Last administered on 08/31/18at 05:02; Admin Dose 4 MG; Start 08/29/18 at 06:00 Acetaminophen (Tylenol Tab) 650 mg Q6H PRN PO .PAIN 1-3 OR TEMP; Start 08/29/18 at 06:00 Docusate Sodium (Colace) 100 mg Q12H PRN PO .CONSTIPATION Last administered on 08/30/18at 21:37; Admin Dose 100 MG; Start 08/29/18 at 06:00 Magnesium Hydroxide (Milk Of Mag) 30 ml DAILY PRN PO .CONSTIPATION Last administered on 09/02/18at 05:16; Admin Dose 30 ML; Start 08/29/18 at 06:00 Alprazolam (Xanax) 0.5 mg QHS PO Last administered on 09/08/18at 21:18; Admin D ose 0.5 MG; Start 08/29/18 at 21:00 Escitalopram Oxalate (Lexapro) 20 mg DAILY PO Last administered on 09/09/18at 08:25; Admin Dose 20 MG; Start 08/30/18 at 09:00 Docusate Sodium (Colace) 100 mg BID PO Last administered on 09/08/18at 09:02; Admin Dose 100 MG; Start 08/31/18 at 13:30 Lorazepam (Ativan) 0.5 mg Q6H PRN PO ANXIETY; Start 09/02/18 at 13:00 Bisacodyl (Dulcolax Supp) 10 mg DAILY PRN [place] CONSTIPATION; Start 09/03/18 at 12:00 Heparin Sodium (Porcine) (Heparin (5000 Units/1ml)) 5,000 unit BID SC Last administered on 09/09/18 08:27; Admin Dose 5,000 UNIT; Start 09/03/18 at 14:00 Hydralazine HCl (Apresoline) 10 mg Q3 PRN IV ELEVATED SYSTOLIC BP Last administered on 09/05/18 19:48; Admin Dose 10 MG; Start 09/03/18 at 18:00 Albuterol/ Ipratropium (Duoneb) 3 ml Q2H RESP THERAPY PRN HHN SHORTNESS OF BREATH; Start 09/03/18 at 20:00 Lorazepam (Ativan) 1 mg Q6H PRN IV anxiety Last administered on 09/06/18 00:00; Admin Dose 1 MG; Start 09/05/18 at 09:00 Clonidine HCl (Catapres-Tts 1 Patch) 1 patch Q7D TRANSDERM Last administered on 09/05/18 14:32; Admin Dose 1 PATCH; Start 09/05/18 at 13:30 Propofol 100 ml @ 2.509 mls/ hr Q12H IV Last administered on 09/09/18 13:35; Admin Dose 10.037 MLS/HR; Start 09/06/18 at 09:30 Lansoprazole (Prevacid) 30 mg DAILY@06 NGT Last administered on 09/09/18 06:14; Admin Dose 30 MG; Start 09/07/18 at 06:00 Doxycycline Hyclate 100 mg/ Sodium Chloride 250 ml @ 250 mls/hr Q12 IVPB Last administered on 09/09/18 08:22; Admin Dose 250 MLS/HR; Start 09/06/18 at 21:00 Fentanyl 100 ml @ 2.5 mls/hr TITRATE IV Last administered on 09/07/18 09:19; Admin Dose 2.5 MLS/HR; Start 09/07/18 at 09:30 Fluconazole/ Sodium Chloride 50 ml @ 50 mls/hr Q24H IVPB Last administered on 09/09/18 11:24; Admin Dose 50 MLS/HR; Start 09/07/18 at 11:30 Metoclopramide HCl (Reglan) 5 mg Q6 IV Last administered on 09/09/18 17:25; Admin Dose 5 MG; Start 09/07/18 at 14:30 Multivitamins (Multivitamin) 30 ml DAILY NGT Last administered on 09/09/18 08:24; Admin Dose 30 ML; Start 09/07/18 at 14:30 Zinc Sulfate (Zinc Sulfate) 220 mg DAILY PO Last administered on 09/09/18 08:26; Admin Dose 220 MG; Start 09/07/18 at 14:30 Ascorbic Acid (Vitamin C) 500 mg DAILY NGT Last administered on 09/09/18 08:25; Admin Dose 500 MG; Start 09/07/18 at 14:30 Folic Acid (Folic Acid) 1 mg DAILY NGT Last administered on 09/09/18 08:24; Admin Dose 1 MG; Start 09/07/18 at 14:30 Petrolatum (Vaseline) APPLY TO MULTIPLE SC... BID TOP Last administered on 09/09/18 08:26; Admin Dose 1 EA; Start 09/08/18 at 09:00 Metronidazole (Flagyl) 500 mg Q8 PO Last administered on 09/09/18 13:40; Admin Dose 500 MG; Start 09/08/18 at 14:00 IV Flush (NS 10 ml) 10 ml PRN PRN IV FLUSH LINE; Start 09/09/18 at 11:30 Assessment/Plan Hospital Course (Demo Recall) 1. Marked sinus bradycardia: Appears to be asymptomatic and in sinus we will continue to monitor. Probably at least partially related to sedation as well as amiodarone 2. Acute hypoxemic respiratory failure status post intubation on the vent 3. Pulmonary hypertension 4. History of proximal atrial fibrillation 5. Hypertension 6. Urinary retention status post surgery 7. Pneumonia possible COPD possible ARDS 8. Acute renal failure Recommendations: off the amiodarone given his marked bradycardia as well as his significant pulmonary disease. Continue blood pressure control. Vent support will be continued managed as per pulmonary Respiratory care to be continued. Continue with ICU care as long as patient is in the ventilator. Antibiotic management as per internal medicine consultants We will continue to monitor on telemetry TSH is abnormal . will check full thyroid function test as well Thank you for his referral. We will continue to follow along with you AMANDA DUNBAR MD [facility] AMANDA DUNBAR MD Sep 09, 2018 20:21
[2018-09-09] MEDS: ALPRAZOLAM 0.5 MG TAB PO SCH (21:00)
[2018-09-10] VITALS (77 sets, daily range): BP systolic 119–168; BP diastolic 53–77; PULSE 63–85; RESP 0–29
[2018-09-10] MEDS: METOCLOPRAMIDE 10 MG INJ IV SCH ×3 (01:02→11:12)
[2018-09-10] MEDS: LANSOPRAZOLE 30 MG CAP NGT SCH (05:44)
[2018-09-10] MEDS: metroNIDAZOLE 500 MG TAB PO SCH ×3 (05:44→21:42)
[2018-09-10] MEDS: PROPOFOL 100 ML IV SCH ×3 (05:50→23:03)
--- NOTE | 2018-09-10 08:58 | PN ---
DATE: 09/10/2018 SUBJECTIVE: The patient remains critically ill on full ventilatory support. No other acute events n oted. OBJECTIVE: VITAL SIGNS: Blood pressure is 120/66, pulse 67, respirations 25, temperature 98.6. HEENT: Head is normocephalic. NECK: Supple. HEART: Regular rate. LUNGS: Show diminished breath sounds at the base. ABDOMEN: Soft, nontender to palpation without rebound or guarding. EXTREMITIES: Negative for clubbing, cyanosis. Trace edema. DERMATOLOGIC: No rashes. MUSCULOSKELETAL: No joint effusion. NEUROLOGIC: No change in exam. MEDICATIONS: The patient's medications have been reviewed. LABORATORY DATA: Has been reviewed. IMAGING STUDIES: Have been reviewed. ASSESSMENT AND PLAN: 1. Nonoliguric acute kidney injury on top of chronic kidney disease with unknown baseline creatinine . Etiology of acute kidney injury is secondary to hemodynamics. Renal function has been fluctuating but overall stable. Continue current treatment plan, supportive care, renally dose all meds. Monito r closely. 2. Hypernatremia. Continue free water flushes AT 300 mL q.4h. Follow up renal panel. 3. Anemia. Monitor hemoglobin and hematocrit levels. 4. Mineral bone disorder, monitor calcium and phosphorus levels. 5. Ventilator-dependent respiratory failure. Vent settings have been reviewed. ABG is reviewed. C ontinue to monitor. Follow up with pulmonary. 6. Sepsis secondary to pneumonia. Continue current antibiotic regimen. 7. cancer followup. Etiology is toxic metabolic. 8. Benign prostatic hypertrophy and History of diastolic heart failure. Monitor I's and O's closely . We will give intermittent diuretic therapy as needed. 9. Diarrhea. The patient is on empiric Flagyl. No evidence of Clostridium difficile colitis. Dictated By: ANGELA BALLARD DO NR/NTS Conf#: [id number] DID#: [id number] CC: SERGIO TREVINO MD;*End*
[2018-09-10] MEDS: DOCUSATE SODIUM 100 MG CAP PO SCH ×2 (09:00→21:24)
--- NOTE | 2018-09-10 09:00 | CONS ---
Assessment/Plan Assessment/Plan Assessment/Plan (Daily) Chest x-ray from today is pending. Ventilator setting; assist control of 20, tidal volume 500, PEEP of 5, 30% FiO2. Patient is currently on propofol 25 mics per kilogram per minute. Assessment and recommendations; next 1. Patient admitted with severe bilateral pneumonia, having failed BiPAP requi ring intubation. 2. Chest x-ray showing persistent severe bilateral pneumonia, however oxygenation is markedly improved. 3. Agitation off sedation. 4. Underlying COPD. 5. Chronic renal insufficiency. Patient maintaining adequate urine output. 6. Persistent leukocytosis, possibly a steroid effect. Solu-Medrol discontinued yesterday. 7. History of cardiac arrhythmia. Hold further sedation. Further recommendations once chest x-ray is obtained. Will assess mental status off sedation in an attempt to possibly wean from ventilator. Meanwhile continue current supportive care. 35 minutes of critical care time was spent evaluating the patient. Consultation Date/Type/Reason Admit Date/Time Aug 29, 2018 at 05:45 Initial Consult Date 08/30/18 Type of Consult Pulmonary Patient condition is tenuous. On BiPAP. Having significant chest congestion. Take slightly yellow-tinged secretions noted on suctioning. Patient requiring deep nasotracheal suctioning. General exam; elderly male, mildly lethargic. Requesting Provider: SERGIO TREVINO MD Date/Time of Note DATE: 09/10/18 TIME: 08:57 24 HR Interval Summary Free Text/Dictation Patient's condition is critical. Patient has failed weaning trials from ventilator because of severe agitation and hypoxemia whenever taken off sedation. Patient however has remained hemodynamically stable. General exam; elderly male, orally intubated, sedated, currently in no distress. Exam/Review of Systems Exam Vitals Vital Signs Date Temp Pulse Resp B/P (MAP) Pulse Ox O2 O2 Flow FiO2 Time Delivery Rate 09/10/18 66 08:00 09/10/18 25 120/66 Mechanical 07:00 (84) Ventilator 09/10/18 100 06:30 09/10/18 30 04:45 09/10/18 97.4 04:00 Intake and Output 09/09/18 09/09/18 09/10/18 1515:00 23:00 07:00 IntakeIntake Total 1370 ml 1100 ml 1090.16 ml OutputOutput Total 320 ml 620 ml 265 ml BalanceBalance 1050 ml 480 ml 825.16 ml Exam H ENT exam; supple neck, no JVD. No lymphadenopathy. Midline trachea. No thyromegaly. Orally intubated. Patient is edentulous. No neck masses. Orogastric tube in place. Pupils are small bilaterally. No neck masses. Chest exam; diminished breath sounds throughout. S1-S2 audible, no murmurs. Regular rhythm. Abdomen exam; soft, nondistended. No organomegaly. Bowel sounds audible. Extremity exam; no peripheral edema. Pulses 1+. 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 Skin exam; no skin breakdown. Results Result Diagram: 09/10/18 0741 09/10/18 0741 Results 24hrs Laboratory Tests Test 09/10/18 07:41 White Blood Count 32.2 #H Red Blood Count 4.73 Hemoglobin 14.4 Hematocrit 45.0 Mean Corpuscular Volume 95.1 Mean Corpuscular Hemoglobin 30.4 Mean Corpuscular Hemoglobin Concent 32.0 Red Cell Distribution Width 14.5 Platelet Count 201 Mean Platelet Volume 12.3 H Immature Granulocytes % 1.800 H Neutrophils % Lymphocytes % Monocytes % Eosinophils % Basophils % Nucleated Red Blood Cells % 0.0 Immature Granulocytes # 0.590 H Neutrophils # Lymphocytes # Monocytes # Eosinophils # Basophils # Nucleated Red Blood Cells # Sodium Level 145 H Potassium Level 4.2 Chloride Level 117 H Carbon Dioxide Level 21 Anion Gap 7 Blood Urea Nitrogen 105 H Creatinine 1.95 H Est Glomerular Filtrat Rate mL/min Glucose Level 148 Calcium Level 7.3 L Phosphorus Level 6.4 H Magnesium Level 3.1 H Medications Medication Current Medications IV Flush (NS 3 ml) 3 ml PER PROTOCOL IV ; Start 08/29/18 at 06:00 Ondansetron HCl (Zofran Inj) 4 mg Q6H PRN IV NAUSEA/VOMITING Last administered on 08/31/18at 05:02; Admin Dose 4 MG; Start 08/29/18 at 06:00 Acetaminophen (Tylenol Tab) 650 mg Q6H PRN PO .PAIN 1-3 OR TEMP; Start 08/29/18 at 06:00 Docusate Sodium (Colace) 100 mg Q12H PRN PO .CONSTIPATION Last administered on 08/30/18at 21:37; Admin Dose 100 MG; Start 08/29/18 at 06:00 Magnesium Hydroxide (Milk Of Mag) 30 ml DAILY PRN PO .CONSTIPATION Last administered on 09/02/18 05:16; Admin Dose 30 ML; Start 08/29/18 at 06:00 Alprazolam (Xanax) 0.5 mg QHS PO Last administered on 09/08/18 21:18; Admin Dose 0.5 MG; Start 08/29/18 at 21:00 Escitalopram Oxalate (Lexapro) 20 mg DAILY PO Last administered on 09/09/18 08:25; Admin Dose 20 MG; Start 08/30/18 at 09:00 Docusate Sodium (Colace) 100 mg BID PO Last administered on 09/09/18 21:26; Admin Dose 100 MG; Start 08/31/18 at 13:30 Lorazepam (Ativan) 0.5 mg Q6H PRN PO ANXIETY; Start 09/02/18 at 13:00 Bisacodyl (Dulcolax Supp) 10 mg DAILY PRN [place] CONSTIPATION; Start 09/03/18 at 12:00 Heparin Sodium (Porcine) (Heparin (5000 Units/1ml)) 5,000 unit BID SC Last administered on 09/09/18 21:28; Admin Dose 5,000 UNIT; Start 09/03/18 at 14:00 Hydralazine HCl (Apresoline) 10 mg Q3 PRN IV ELEVATED SYSTOLIC BP Last administered on 09/05/18 19:48; Admin Dose 10 MG; Start 09/03/18 at 18:00 Albuterol/ Ipratropium (Duoneb) 3 ml Q2H RESP THERAPY PRN HHN SHORTNESS OF BREATH; Start 09/03/18 at 20:00 Lorazepam (Ativan) 1 mg Q6H PRN IV anxiety Last administered on 09/06/18 00:00; Admin Dose 1 MG; Start 09/05/18 at 09:00 Clonidine HCl (Catapres-Tts 1 Patch) 1 patch Q7D TRANSDERM Last administered on 09/05/18 14:32; Admin Dose 1 PATCH; Start 09/05/18 at 13:30 Propofol 100 ml @ 2.509 mls/ hr Q12H IV Last administered on 09/10/18 05:50; Admin Dose 12.546 MLS/HR; Start 09/06/18 at 09:30 Lansoprazole (Prevacid) 30 mg DAILY@06 NGT Last administered on 09/10/18 05:44; Admin Dose 30 MG; Start 09/07/18 at 06:00 Doxycycline Hyclate 100 mg/ Sodium Chloride 250 ml @ 250 mls/hr Q12 IVPB Last administered on 09/09/18 21:26; Admin Dose 250 MLS/HR; Start 09/06/18 at 21:00 Fentanyl 100 ml @ 2.5 mls/hr TITRATE IV Last administered on 09/07/18 09:19; Admin Dose 2.5 MLS/HR; Start 09/07/18 at 09:30 Fluconazole/ Sodium Chloride 50 ml @ 50 mls/hr Q24H IVPB Last administered on 09/09/18 11:24; Admin Dose 50 MLS/HR; Start 09/07/18 at 11:30 Metoclopramide HCl (Reglan) 5 mg Q6 IV Last administered on 09/10/18 05:44; Admin Dose 5 MG; Start 09/07/18 at 14:30 Multivitamins (Multivitamin) 30 ml DAILY NGT Last administered on 09/09/18 08:24; Admin Dose 30 ML; Start 09/07/18 at 14:30 Zinc Sulfate (Zinc Sulfate) 220 mg DAILY PO Last administered on 09/09/18 08:26; Admin Dose 220 MG; Start 09/07/18 at 14:30 Ascorbic Acid (Vitamin C) 500 mg DAILY NGT Last administered on 09/09/18 08:25; Admin Dose 500 MG; Start 09/07/18 at 14:30 Folic Acid (Folic Acid) 1 mg DAILY NGT Last administered on 09/09/18 08:24; Admin Dose 1 MG; Start 09/07/18 at 14:30 Petrolatum (Vaseline) APPLY TO MULTIPLE SC... BID TOP Last administered on 09/09 21:26; Admin Dose 1 EA; Start 09/08/18 at 09:00 Metronidazole (Flagyl) 500 mg Q8 PO Last administered on 09/10/18 05:44; Admin Dose 500 MG; Start 09/08/18 at 14:00 IV Flush (NS 10 ml) 10 ml PRN PRN IV FLUSH LINE; Start 09/09/18 at 11:30 JUDE GODINEZ 13, 2019 09:00
[2018-09-10] MEDS: PETROLATUM 5 GM OINT TOP SCH ×2 (09:10→21:25)
[2018-09-10] MEDS: MULTIVITAMINS 30 ML CUP NGT SCH (09:10)
[2018-09-10] MEDS: FOLIC ACID 1 MG TAB NGT SCH (09:10)
[2018-09-10] MEDS: ASCORBIC ACID 500 MG TAB NGT SCH (09:10)
[2018-09-10] MEDS: ESCITALOPRAM 10 MG TAB PO SCH (09:10)
[2018-09-10] MEDS: DOXYCYCLINE 100 MG in SOD CHLORIDE 0.9% 250 ML IVPB SCH ×2 (09:11→21:24)
[2018-09-10] MEDS: ZINC SULFATE 220 MG CAP PO SCH (09:11)
[2018-09-10] MEDS: HEPARIN 5,000 UNIT/1 ML VIAL SC SCH ×2 (09:32→21:26)
[2018-09-10] MEDS: FLUCONAZOLE 100 MG/50 ML (PMX) 50 ML IVPB SCH (11:12)
--- NOTE | 2018-09-10 12:01 | PN ---
DATE: 09/10/2018 SUBJECTIVE: The patient seen. Case discussed with nursing staff in detail. The patient noted to swan ve increasing leukocytosis with a white count of 32,000 and patient is currently already off steroids . The patient does have diarrhea and has a rectal tube. I am concerned about Clostridium difficile despite negative tests. Patient's chest which has improved significantly today. Attempt at CPAP was still quite challenging due to anxiety and change in vital signs. Continue to monitor closely and h opefully can try to extubate him soon. PHYSICAL EXAMINATION: VITAL SIGNS: Temperature is 97.5, afebrile otherwise. Pulse 66, respirations 20, blood pressure 131 /67, saturation 100%, currently on AC 20, tidal volume 500, PEEP of 5, FIO2 of 30%. GENERAL: The patient is sedated and remains on propofol. CARDIOVASCULAR: S1, S2. LUNGS: Decreased bilaterally, otherwise clear. ABDOMEN: Soft, nontender. EXTREMITIES: Trace edema throughout. Right upper extremity PICC line is in place. The patient has an NG tube, tolerating at 50 mL an hour well. LABORATORY DATA: White count 32.2, hemoglobin 14.4, hematocrit 45, platelets 201, 86%, bands o f 2%. Chemistry: Sodium 145, potassium 4.2, chloride 117, bicarbonate 21, BUN is 105, creatinine 1. 95, glucose 148, phosphorus 6.4, magnesium is 3.1. Urine culture negative. Stool for C. diff x1 was negative. Leah albicans and this respiratory culture was noted on 09/06/2018. Otherwise, all ot her cultures are negative. MEDICATIONS: 1. Flagyl 500 orally q.8h. 2. Vaseline b.i.d. 3. Reglan 5 mg IV q.6h. We will try to discontinue that and monitor G-tube feeding and residuals. 4. Multivitamin daily. 5. Zinc sulfate 220 daily. 6. Vitamin C 500 daily. 7. Folic acid daily. 8. Diflucan daily. 9. Off fentanyl. 10. Prevacid 10 mg daily. 11. Doxycycline IV dose per pharmacy. 12. Propofol as directed. 13. Clonidine patch q. weekly. 14. Ativan p.r.n. 15. DuoNeb p.r.n. 16. Hydralazine p.r.n. 17. Heparin 5000 subcu b.i.d. 18. Dulcolax p.r.n. 19. Ativan p.r.n. 20. Colace 100 b.i.d. is being held due to loose stools. 21. Lexapro 20 mg daily. 22. Xanax at bedtime. 23. Zofran. 24. Tylenol. 25. Colace. 26. Milk of magnesia as directed. ASSESSMENT AND PLAN: This is a very unfortunate 87-year-old Spanish male with history of atrial fib rillation, hypertension, urinary retention, low back pain and depression, presented with worsening sh ortness of breath, was found to be in acute respiratory failure, fevers, bronchitis and a developing worsening patchy infiltrates. 1. Respiratory. The patient with diffuse patchy infiltrate suggestive of ALDS, but today's chest ex am is much improved. The patient is status post antibiotic management, steroids, breathing treatment s and diuretics intermittently. Continue core oxygen, vent support extubation per Dr. Hoffmann. Jerald calhoun success due to improved chest x-ray and overall good oxygenation. 2. Cardiovascular. Continue heparin for DVT prophylaxis and clonidine patch. Blood pressure is nor mal. 3. Gastrointestinal. Continue gastrointestinal prophylaxis with Prevacid. Hemoglobin and hematocri t remain stable. 4. Infectious disease. The patient with worsening leukocytosis. Differential diagnosis includes he is a leukemoid reaction, steroid induced, worsening infection such as C. diff. Empirically will sta rt the patient on oral vancomycin as patient has symptoms of diarrhea and worsening leukocytosis in t he setting of antibiotics. Continue to monitor. 5. Acute renal failure in the setting of diuretics, hydrate as needed accordingly. No evidence of f luid overload state. Nephrology is following. No indication for dialysis. 6. Remains sedated on propofol. Overall appears to be comfortable. Ativan p.r.n. 7. Hold stool softeners in the setting of diarrhea. 8. Dysphagia, on Nutren pulmonary at 50 mL an hour. Discontinue Reglan and monitor residuals. 9. The patient is FULL CODE. Condition remains guarded. We will continue to follow. 10. The patient is comfortable. Case discussed with staff. 11. Continue all vitamins for maximum wound healing as the patient has multiple skin abrasions. Dictated By: SERGIO CERVANTES/NEHAL Conf#: [id number] [facility]#: [id number]
[2018-09-10] MEDS: VANCOMYCIN HCL 250 MG/5ML POSYG PO SCH ×3 (12:41→23:55)
--- NOTE | 2018-09-10 13:53 | CONS ---
Assessment/Plan Assessment/Plan Hospital Course (Demo Recall) No acute changes overnight patient remains intubated sedated in no distress no fevers overnight. WBC 32.2 platelets 201 neutrophils 86 bands 2 BUN 105 creatinine 1.95 procalcitonin 0.2 Antimicrobials: Urine culture sent yesterday preliminary negative, blood cultures pending Antimicrobials: Flagyl, oral vancomycin, fluconazole and doxycycline Microbiology: Sputum culture gr 1ew Leah albicans Indwelling's: Endotracheal tube NG tube Mcgowan catheter Physical examination: Well-developed well-nourished elderly man who is awake in no distress. Head atraumatic normocephalic sclera nonicteric vehicle mucosa dry neck is supple chest rise symmetrical breath sounds with bilateral rhonchi. Heart: S1-S2. Abdomen soft bowel sounds present. Assessment: 1. Acute hypoxemic respiratory failure 2. Pneumonia/ARDS 3. Mild CHF 4. Bradycardia 5. Acute kidney injury 6. Diarrhea 7. Worsening leukocytosis, likely steroid-induced versus leukemoid reaction Plan: Hemodynamically stable, chest x-ray with significant improvement, continue present care, await for blood cultures, weaning trials per pulmonary Consultation Date/Type/Reason Admit Date/Time Aug 29, 2018 at 05:45 Initial Consult Date 08/30/18 Type of Consult id Requesting Provider: SERGIO TREVINO MD Date/Time of Note DATE: 09/10/18 TIME: 13:51 Exam/Review of Systems Exam Vitals Vital Signs Date Temp Pulse Resp B/P (MAP) Pulse Ox O2 O2 Flow FiO2 Time Delivery Rate 09/10/18 63 12:00 09/10/18 20 131/67 100 Mechanical 11:00 (88) Ventilator 09/10/18 30 08:00 09/10/18 97.5 08:00 Intake and Output 09/09/18 09/09/18 09/10/18 1515:00 23:00 07:00 IntakeIntake Total 1370 ml 1100 ml 1090.16 ml OutputOutput Total 520 ml 720 ml 265 ml BalanceBalance 850 ml 380 ml 825.16 ml Results Result Diagram: 09/10/18 0741 09/10/18 0741 Results 24hrs Laboratory Tests Test 09/10/18 07:41 09/10/18 12:20 09/10/18 12:46 White Blood Count 32.2 #H Red Blood Count 4.73 Hemoglobin 14.4 Hematocrit 45.0 Mean Corpuscular Volume 95.1 Mean Corpuscular Hemoglobin 30.4 Mean Corpuscular 32.0 Hemoglobin Concent Red Cell Distribution Width 14.5 Platelet Count 201 Mean Platelet Volume 12.3 H Immature Granulocytes % 1.800 H Neutrophils % Segmented Neutrophils 86 H % (Manual) Band Neutrophils % (Manual) 2 Lymphocytes % Lymphocytes % (Manual) 5 L Monocytes % Monocytes % (Manual) 7 Eosinophils % Basophils % Nucleated Red Blood Cells % 0.0 Immature Granulocytes # 0.590 H Neutrophils # Neutrophils # (Manual) 27.9 H Band Neutrophils # 0.6 Lymphocytes (Manual) 1.6 Lymphocytes # Monocytes # Monocytes # (Manual) 2.2 H Eosinophils # Basophils # Nucleated Red Blood Cells # Platelet Estimate NORMAL Poikilocytosis 2+ Spherocytes 1+ Sodium Level 145 H Potassium Level 4.2 Chloride Level 117 H Carbon Dioxide Level 21 Anion Gap 7 Blood Urea Nitrogen 105 H Creatinine 1.95 H Est Glomerular Filtrat Rate mL/min Glucose Level 148 Calcium Level 7.3 L Phosphorus Level 6.4 H Magnesium Level 3.1 H Lab Scanned Report REFERENCE LAB REFERENCE LAB Medications Medication Current Medications IV Flush (NS 3 ml) 3 ml PER PROTOCOL IV ; Start 08/29/18 at 06:00 Ondansetron HCl (Zofran Inj) 4 mg Q6H PRN IV NAUSEA/VOMITING Last administered on 08/31/18 05:02; Admin Dose 4 MG; Start 08/29/18 at 06:00 Acetaminophen (Tylenol Tab) 650 mg Q6H PRN PO .PAIN 1-3 OR TEMP; Start 08/29/18 at 06:00 Docusate Sodium (Colace) 100 mg Q12H PRN PO .CONSTIPATION Last administered on 08/30/18 21:37; Admin Dose 100 MG; Start 08/29/18 at 06:00 Magnesium Hydroxide (Milk Of Mag) 30 ml DAILY PRN PO .CONSTIPATION Last administered on 09/02/18 05:16; Admin Dose 30 ML; Start 08/29/18 at 06:00 Alprazolam (Xanax) 0.5 mg QHS PO Last administered on 09/08/18 21:18; Admin Dose 0.5 MG; Start 08/29/18 at 21:00 Escitalopram Oxalate (Lexapro) 20 mg DAILY PO Last administered on 09/10/18 09:10; Admin Dose 20 MG; Start 08/30/18 at 09:00 Docusate Sodium (Colace) 100 mg BID PO Last administered on 09/09/18 21:26; Admin Dose 100 MG; Start 08/31/18 at 13:30 Lorazepam (Ativan) 0.5 mg Q6H PRN PO ANXIETY; Start 09/02/18 at 13:00 Bisacodyl (Dulcolax Supp) 10 mg DAILY PRN [place] CONSTIPATION; Start 09/03/18 at 12:00 Heparin Sodium (Porcine) (Heparin (5000 Units/1ml)) 5,000 unit BID SC Last administered on 09/10/18 09:32; Admin Dose 5,000 UNIT; Start 09/03/18 at 14:00 Hydralazine HCl (Apresoline) 10 mg Q3 PRN IV ELEVATED SYSTOLIC BP Last administered on 09/05/18 19:48; Admin Dose 10 MG; Start 09/03/18 at 18:00 Albuterol/ Ipratropium (Duoneb) 3 ml Q2H RESP THERAPY PRN HHN SHORTNESS OF BREATH; Start 09/03/18 at 20:00 Lorazepam (Ativan) 1 mg Q6H PRN IV anxiety Last administered on 09/06/18 00:00; Admin Dose 1 MG; Start 09/05/18 at 09:00 Clonidine HCl (Catapres-Tts 1 Patch) 1 patch Q7D TRANSDERM Last administered on 09/05/18 14:32; Admin Dose 1 PATCH; Start 09/05/18 at 13:30 Propofol 100 ml @ 2.509 mls/ hr Q12H IV Last administered on 09/10/18 05:50; Admin Dose 12.546 MLS/HR; Start 09/06/18 at 09:30 Lansoprazole (Prevacid) 30 mg DAILY@06 NGT Last administered on 09/10/18 05:44; Admin Dose 30 MG; Start 09/07/18 at 06:00 Doxycycline Hyclate 100 mg/ Sodium Chloride 250 ml @ 250 mls/hr Q12 IVPB Last administered on 09/10/18 09:11; Admin Dose 250 MLS/HR; Start 09/06/18 at 21:00 Fentanyl 100 ml @ 2.5 mls/hr TITRATE IV Last administered on 09/07/18 09:19; Admin Dose 2.5 MLS/HR; Start 09/07/18 at 09:30 Fluconazole/ Sodium Chloride 50 ml @ 50 mls/hr Q24H IVPB Last administered on 09/10/18 11:12; Admin Dose 50 MLS/HR; Start 09/07/18 at 11:30 Multivitamins (Multivitamin) 30 ml DAILY NGT Last administered on 09/10/18 09:10; Admin Dose 30 ML; Start 09/07/18 at 14:30 Zinc Sulfate (Zinc Sulfate) 220 mg DAILY PO Last administered on 09/10/18 09:11; Admin Dose 220 MG; Start 09/07/18 at 14:30 Ascorbic Acid (Vitamin C) 500 mg DAILY NGT Last administered on 09/10/18 09:10; Admin Dose 500 MG; Start 09/07/18 at 14:30 Folic Acid (Folic Acid) 1 mg DAILY NGT Last administered on 09/10/18 09:10; Admin Dose 1 MG; Start 09/07/18 at 14:30 Petrolatum (Vaseline) APPLY TO MULTIPLE SC... BID TOP Last administered on 09/10/18 09:10; Admin Dose 1 EA; Start 09/08/18 at 09:00 Metronidazole (Flagyl) 500 mg Q8 PO Last administered on 09/10/18 12:41; Admin Dose 500 MG; Start 09/08/18 at 14:00 IV Flush (NS 10 ml) 10 ml PRN PRN IV FLUSH LINE; Start 09/09/18 at 11:30 Vancomycin HCl (Vancomycin Oral Syringe) 250 mg Q6 PO Last administered on 09/10/18 12:41; Admin Dose 250 MG; Start 09/10/18 at 12:00 TAYLOR RIZZO NP Sep 10, 2018 13:53
[2018-09-10] MEDS: ALPRAZOLAM 0.5 MG TAB PO SCH (21:00)
[2018-09-11] VITALS (71 sets, daily range): BP systolic 111–163; BP diastolic 54–69; PULSE 58–67; RESP 18–39
[2018-09-11] MEDS: LANSOPRAZOLE 30 MG CAP NGT SCH (05:29)
[2018-09-11] MEDS: metroNIDAZOLE 500 MG TAB PO SCH ×3 (05:29→21:39)
[2018-09-11] MEDS: VANCOMYCIN HCL 250 MG/5ML POSYG PO SCH ×4 (05:31→23:59)
[2018-09-11] MEDS: PROPOFOL 100 ML IV SCH ×2 (08:35→17:29)
--- NOTE | 2018-09-11 08:36 | PN ---
DATE: 09/11/2018 SUBJECTIVE: The patient remains in serious, but stable condition. On full ventilatory support. No other acute events noted. No hemoptysis, hematemesis or hematochezia. OBJECTIVE: VITAL SIGNS: Blood pressure is 127/55, respirations 23, pulse 62, temperature 98.3. HEENT: Head is normocephalic. NECK: Supple. HEART: Regular rate. LUNGS: Show diminished breath sounds at the base. ABDOMEN: Soft, nontender to palpation. No rebound or guarding. EXTREMITIES: Negative for clubbing, cyanosis, no edema. DERMATOLOGIC: No rashes. MUSCULOSKELETAL: No joint effusion. NEUROLOGIC: No change in exam. MEDICATIONS: Reviewed. LABORATORY DATA: Reviewed. IMAGING STUDIES: Reviewed. ASSESSMENT AND PLAN: 1. Nonoliguric acute kidney injury on top of chronic kidney disease with unknown baseline creatinine . Etiology of acute kidney injury is secondary to hemodynamics, possible tubular injury. The patien t's renal function has been fluctuating, but creatinine appears to be stabilizing around 2.0 mg/dL. At this point, we will continue current treatment plan, supportive care, renally dose all medications . Please note that the patient does have progressive azotemia. This is multifactorial due to acute kidney injury, hypercatabolic state. We will continue to monitor. 2. Hypernatremia. Sodium levels have improved. Continue free water flushes at current rate. 3. Anemia. Continue to monitor hemoglobin and hematocrit levels. 4. Mineral bone disorder, monitor calcium and phosphorus levels. 5. Ventilator-dependent respiratory failure. Vent settings and ABG have been reviewed. Continue to monitor. Follow up with pulmonary. 6. Sepsis secondary to pneumonia. Continue current antibiotic therapy. 7. Acute encephalopathy, etiology is toxic metabolic. Continue to monitor. 8. History of diastolic heart failure. I's and O's are being monitored closely. We will give inter mittent diuretic therapy as needed. 9. Diarrhea. Continue empiric Flagyl. 10. Benign prostatic hypertrophy. Continue medical management. Dictated By: ANGELA BALLARD DO NR/NTS Conf#: [id number] DID#: [id number] CC: SERGIO TREVINO MD; OLIVE ANDREWS MD;*End*
--- NOTE | 2018-09-11 08:58 | CONS ---
Assessment/Plan Assessment/Plan Assessment/Plan (Daily) Ventilator setting; AC of 20, tidal volume 500, PEEP of 5, 30% FiO2. Patient is currently on propofol 20 mics per kilogram per minute. Chest x-ray is pending. Assessment and recommendations; 1. Patient admitted with bilateral pneumonia having failed BiPAP requiring intubation. There has been significant radiological improvement but the patient has failed a weaning trial yesterday. 2. Underlying severe COPD. 3. History of cardiac arrhythmia. 4. Chronic renal insufficiency. 5. Thrombocytopenia. Hold sedation again today to assess mental status. Once the patient off sedation he will be given another weaning trial to see if the patient can be weaned off from invasive mechanical ventilation. Prognosis is guarded. Consultation Date/Type/Reason Admit Date/Time Aug 29, 2018 at 05:45 Initial Consult Date 08/30/18 Type of Consult Pulmonary Patient condition is tenuous. On BiPAP. Having significant chest congestion. Take slightly yellow-tinged secretions noted on suctioning. Patient requiring deep nasotracheal suctioning. General exam; elderly male, mildly lethargic. Requesting Provider: SERGIO TREVINO MD Date/Time of Note DATE: 09/11/18 TIME: 08:56 24 HR Interval Summary Free Text/Dictation Patient's condition is critical. Patient failed a weaning trial yesterday. Patient has remained hemodynamically stable. General exam; elderly male, on ventilator via endotracheal tube. Sedated. Currently in no distress. Exam/Review of Systems Exam Vitals Vital Signs Date Temp Pulse Resp B/P (MAP) Pulse Ox O2 O2 Flow FiO2 Time Delivery Rate 09/11/18 59 08:00 09/11/18 21 99 30 05:21 09/11/18 127/55 Mechanical 05:00 (79) Ventilator 09/11/18 98.3 04:00 Intake and Output 09/10/18 09/10/18 09/11/18 1515:00 23:00 07:00 IntakeIntake Total 1387.5 ml 827.54 ml 1102.70 ml OutputOutput Total 420 ml 510 ml 630 ml BalanceBalance 967.5 ml 317.54 ml 472.70 ml Exam H EENT exam; supple neck, no JVD. No lymphadenopathy. Midline trachea. No thyromegaly. Orally intubated. Patient is edentulous. Orogastric tube in place. Chest exam; diminished breath sounds bilaterally. No added sounds. S1-S2 audible, no murmurs. Regular rhythm. Abdomen exam; soft, no organomegaly. Bowel sounds audible. Extremity exam; no edema. [employer] exam; patient is sedated. Results Result Diagram: 09/11/18 0438 09/11/18 0448 Results 24hrs Laboratory Tests Test 09/10/18 12:20 09/10/18 12:46 09/11/18 04:38 09/11/18 04:48 Lab Scanned REFERENCE LAB REFERENCE LAB Report White Blood 28.1 H Count Red Blood Count 4.13 L Hemoglobin 12.7 L Hematocrit 39.2 L Mean Corpuscular 94.9 Volume Mean Corpuscular 30.8 Hemoglobin Mean Corpuscular 32.4 Hemoglobin Irene nt Red Cell 14.6 H Distribution Width Platelet Count 151 # Mean Platelet 13.0 H Volume Immature 1.900 H Granulocytes % Neutrophils % 86.7 H Lymphocytes % 5.3 L Monocytes % 5.9 Eosinophils % 0.0 Basophils % 0.2 Nucleated Red 0.0 Blood Cells % Immature 0.540 H Granulocytes # Neutrophils # 24.4 H Lymphocytes # 1.5 Monocytes # 1.7 H Eosinophils # 0.0 Basophils # 0.1 Nucleated Red 0.0 Blood Cells # Sodium Level 144 Potassium Level 4.3 Chloride Level 118 H Carbon Dioxide 20 L Level Anion Gap 6 Blood Urea 109 H Nitrogen Creatinine 2.02 H Est Glomerular Filtrat Rate mL/min Glucose Level 119 Calcium Level 7.0 L Phosphorus Level 6.7 H Magnesium Level 2.8 H Medications Medication Current Medications IV Flush (NS 3 ml) 3 ml PER PROTOCOL IV ; Start 08/29/18 at 06:00 Ondansetron HCl (Zofran Inj) 4 mg Q6H PRN IV NAUSEA/VOMITING Last administered on 08/31/18at 05:02; Admin Dose 4 MG; Start 08/29/18 at 06:00 Acetaminophen (Tylenol Tab) 650 mg Q6H PRN PO .PAIN 1-3 OR TEMP; Start 08/29/18 at 06:00 Docusate Sodium (Colace) 100 mg Q12H PRN PO .CONSTIPATION Last administered on 08/30/18at 21:37; Admin Dose 100 MG; Start 08/29/18 at 06:00 Magnesium Hydroxide (Milk Of Mag) 30 ml DAILY PRN PO .CONSTIPATION Last administered on 09/02/18 05:16; Admin Dose 30 ML; Start 08/29/18 at 06:00 Alprazolam (Xanax) 0.5 mg QHS PO Last administered on 09/08/18 21:18; Admin Dose 0.5 MG; Start 08/29/18 at 21:00 Escitalopram Oxalate (Lexapro) 20 mg DAILY PO Last administered on 09/10/18 09:10; Admin Dose 20 MG; Start 08/30/18 at 09:00 Docusate Sodium (Colace) 100 mg BID PO Last administered on 09/10/18 21:24; Admin Dose 100 MG; Start 08/31/18 at 13:30 Lorazepam (Ativan) 0.5 mg Q6H PRN PO ANXIETY; Start 09/02/18 at 13:00 Bisacodyl (Dulcolax Supp) 10 mg DAILY PRN [place] CONSTIPATION; Start 09/03/18 at 12:00 Heparin Sodium (Porcine) (Heparin (5000 Units/1ml)) 5,000 unit BID SC Last administered on 09/10/18 21:26; Admin Dose 5,000 UNIT; Start 09/03/18 at 14:00 Hydralazine HCl (Apresoline) 10 mg Q3 PRN IV ELEVATED SYSTOLIC BP Last administered on 09/05/18 19:48; Admin Dose 10 MG; Start 09/03/18 at 18:00 Albuterol/ Ipratropium (Duoneb) 3 ml Q2H RESP THERAPY PRN HHN SHORTNESS OF BREATH; Start 09/03/18 at 20:00 Lorazepam (Ativan) 1 mg Q6H PRN IV anxiety Last administered on 09/06/18 00:00; Admin Dose 1 MG; Start 09/05/18 at 09:00 Clonidine HCl (Catapres-Tts 1 Patch) 1 patch Q7D TRANSDERM Last administered on 09/05/18 14:32; Admin Dose 1 PATCH; Start 09/05/18 at 13:30 Propofol 100 ml @ 2.509 mls/ hr Q12H IV Last administered on 09/11/18 08:35; Admin Dose 10.037 MLS/HR; Start 09/06/18 at 09:30 Lansoprazole (Prevacid) 30 mg DAILY@06 NGT Last administered on 09/11/18 05:29; Admin Dose 30 MG; Start 09/07/18 at 06:00 Doxycycline Hyclate 100 mg/ Sodium Chloride 250 ml @ 250 mls/hr Q12 IVPB Last administered on 09/10/18 21:24; Admin Dose 250 MLS/HR; Start 09/06/18 at 21:00 Fentanyl 100 ml @ 2.5 mls/hr TITRATE IV Last administered on 09/07/18 09:19; Admin Dose 2.5 MLS/HR; Start 09/07/18 at 09:30 Fluconazole/ Sodium Chloride 50 ml @ 50 mls/hr Q24H IVPB Last administered on 09/10/18 11:12; Admin Dose 50 MLS/HR; Start 09/07/18 at 11:30 Multivitamins (Multivitamin) 30 ml DAILY NGT Last administered on 09/10/18 09:10; Admin Dose 30 ML; Start 09/07/18 at 14:30 Zinc Sulfate (Zinc Sulfate) 220 mg DAILY PO Last administered on 09/10/18 09:11; Admin Dose 220 MG; Start 09/07/18 at 14:30 Ascorbic Acid (Vitamin C) 500 mg DAILY NGT Last administered on 09/10/18 09:10; Admin Dose 500 MG; Start 09/07/18 at 14:30 Folic Acid (Folic Acid) 1 mg DAILY NGT Last administered on 09/10/18 09:10; Admin Dose 1 MG; Start 09/07/18 at 14:30 Petrolatum (Vaseline) APPLY TO MULTIPLE SC... BID TOP Last administered on 09/10/18 21:25; Admin Dose 1 EA; Start 09/08/18 at 09:00 Metronidazole (Flagyl) 500 mg Q8 PO Last administered on 09/11/18 05:29; Admin Dose 500 MG; Start 09/08/18 at 14:00 IV Flush (NS 10 ml) 10 ml PRN PRN IV FLUSH LINE; Start 09/09/18 at 11:30 Vancomycin HCl (Vancomycin Oral Syringe) 250 mg Q6 PO Last administered on 09/11/18 05:31; Admin Dose 250 MG; Start 09/10/18 at 12:00 JUDE GODINEZ 14, 2019 08:58
[2018-09-11] MEDS: PETROLATUM 5 GM OINT TOP SCH ×2 (09:00→21:40)
[2018-09-11] MEDS: DOCUSATE SODIUM 100 MG CAP PO SCH ×2 (09:00→21:00)
[2018-09-11] MEDS: FOLIC ACID 1 MG TAB NGT SCH (09:49)
[2018-09-11] MEDS: ZINC SULFATE 220 MG CAP PO SCH (09:49)
[2018-09-11] MEDS: ESCITALOPRAM 10 MG TAB PO SCH (09:49)
[2018-09-11] MEDS: ASCORBIC ACID 500 MG TAB NGT SCH (09:49)
[2018-09-11] MEDS: DOXYCYCLINE 100 MG in SOD CHLORIDE 0.9% 250 ML IVPB SCH ×2 (09:49→21:39)
[2018-09-11] MEDS: MULTIVITAMINS 30 ML CUP NGT SCH (09:52)
[2018-09-11] MEDS: HEPARIN 5,000 UNIT/1 ML VIAL SC SCH ×2 (09:52→21:43)
[2018-09-11] MEDS ORDERED: FUROSEMIDE 40 MG INJ IV ONE (10:30)
[2018-09-11] MEDS: FLUCONAZOLE 100 MG/50 ML (PMX) 50 ML IVPB SCH (13:01)
--- NOTE | 2018-09-11 13:38 | CONS ---
Assessment/Plan Assessment/Plan Hospital Course (Demo Recall) Looks comfortable no fevers overnight status post Lasix dose this morning. WBC 28.1 platelets 151 neutrophils 86.7 BUN 109 creatinine 2.02 Microbiology: Repeat blood and urine culture negative Chest x-ray this morning revealed interval increase in pulmonary vascular congestion Antimicrobials: Flagyl, oral vancomycin, fluconazole and doxycycline Microbiology: Sputum culture gr 1ew Leah albicans Indwelling's: Endotracheal tube NG tube Mcgowan catheter Physical examination: Well-developed well-nourished elderly man who is awake in no distress. Head atraumatic normocephalic sclera nonicteric vehicle mucosa dry neck is supple chest rise symmetrical breath sounds with bilateral rhonchi. Heart: S1-S2. Abdomen soft bowel sounds present. Assessment: 1. Acute hypoxemic respiratory failure 2. Pneumonia/ARDS 3. Mild CHF 4. Bradycardia 5. Acute kidney injury 6. Diarrhea 7. Leukocytosis, likely steroid-induced versus leukemoid reaction Plan: Stable, continue present care, weaning trials per pulmonary Consultation Date/Type/Reason Admit Date/Time Aug 29, 2018 at 05:45 Initial Consult Date 08/30/18 Type of Consult id Requesting Provider: SERGIO TREVINO MD Date/Time of Note DATE: 09/11/18 TIME: 13:37 Exam/Review of Systems Exam Vitals Vital Signs Date Temp Pulse Resp B/P (MAP) Pulse Ox O2 O2 Flow FiO2 Time Delivery Rate 09/11/18 64 12:00 09/11/18 21 132/56 100 10:00 (81) 09/11/18 97.2 Mechanical 08:00 Ventilator 09/11/18 30 08:00 Intake and Output 09/10/18 09/10/18 09/11/18 1515:00 23:00 07:00 IntakeIntake Total 1387.5 ml 827.54 ml 1102.70 ml OutputOutput Total 420 ml 510 ml 630 ml BalanceBalance 967.5 ml 317.54 ml 472.70 ml Results Result Diagram: 09/11/18 0438 09/11/18 0448 Results 24hrs Laboratory Tests Test 09/11/18 04:38 09/11/18 04:48 White Blood Count 28.1 H Red Blood Count 4.13 L Hemoglobin 12.7 L Hematocrit 39.2 L Mean Corpuscular Volume 94.9 Mean Corpuscular Hemoglobin 30.8 Mean Corpuscular Hemoglobin Concent 32.4 Red Cell Distribution Width 14.6 H Platelet Count 151 # Mean Platelet Volume 13.0 H Immature Granulocytes % 1.900 H Neutrophils % 86.7 H Lymphocytes % 5.3 L Monocytes % 5.9 Eosinophils % 0.0 Basophils % 0.2 Nucleated Red Blood Cells % 0.0 Immature Granulocytes # 0.540 H Neutrophils # 24.4 H Lymphocytes # 1.5 Monocytes # 1.7 H Eosinophils # 0.0 Basophils # 0.1 Nucleated Red Blood Cells # 0.0 Sodium Level 144 Potassium Level 4.3 Chloride Level 118 H Carbon Dioxide Level 20 L Anion Gap 6 Blood Urea Nitrogen 109 H Creatinine 2.02 H Est Glomerular Filtrat Rate mL/min Glucose Level 119 Calcium Level 7.0 L Phosphorus Level 6.7 H Magnesium Level 2.8 H Medications Medication Current Medications IV Flush (NS 3 ml) 3 ml PER PROTOCOL IV ; Start 08/29/18 at 06:00 Ondansetron HCl (Zofran Inj) 4 mg Q6H PRN IV NAUSEA/VOMITING Last administered on 08/31/18 05:02; Admin Dose 4 MG; Start 08/29/18 at 06:00 Acetaminophen (Tylenol Tab) 650 mg Q6H PRN PO .PAIN 1-3 OR TEMP; Start 08/29/18 at 06:00 Docusate Sodium (Colace) 100 mg Q12H PRN PO .CONSTIPATION Last administered on 08/30/18 21:37; Admin Dose 100 MG; Start 08/29/18 at 06:00 Magnesium Hydroxide (Milk Of Mag) 30 ml DAILY PRN PO .CONSTIPATION Last administered on 09/02/18 05:16; Admin Dose 30 ML; Start 08/29/18 at 06:00 Alprazolam (Xanax) 0.5 mg QHS PO Last administered on 09/08/18 21:18; Admin Dose 0.5 MG; Start 08/29/18 at 21:00 Escitalopram Oxalate (Lexapro) 20 mg DAILY PO Last administered on 09/11/18 09:49; Admin Dose 20 MG; Start 08/30/18 at 09:00 Docusate Sodium (Colace) 100 mg BID PO Last administered on 09/10/18 21:24; Admin Dose 100 MG; Start 08/31/18 at 13:30 Lorazepam (Ativan) 0.5 mg Q6H PRN PO ANXIETY; Start 09/02/18 at 13:00 Bisacodyl (Dulcolax Supp) 10 mg DAILY PRN [place] CONSTIPATION; Start 09/03/18 at 12:00 Heparin Sodium (Porcine) (Heparin (5000 Units/1ml)) 5,000 unit BID SC Last administered on 09/11/18 09:52; Admin Dose 5,000 UNIT; Start 09/03/18 at 14:00 Hydralazine HCl (Apresoline) 10 mg Q3 PRN IV ELEVATED SYSTOLIC BP Last administered on 09/05/18 19:48; Admin Dose 10 MG; Start 09/03/18 at 18:00 Albuterol/ Ipratropium (Duoneb) 3 ml Q2H RESP THERAPY PRN HHN SHORTNESS OF BREATH; Start 09/03/18 at 20:00 Lorazepam (Ativan) 1 mg Q6H PRN IV anxiety Last administered on 09/06/18 00:00; Admin Dose 1 MG; Start 09/05/18 at 09:00 Clonidine HCl (Catapres-Tts 1 Patch) 1 patch Q7D TRANSDERM Last administered on 09/05/18 14:32; Admin Dose 1 PATCH; Start 09/05/18 at 13:30 Propofol 100 ml @ 2.509 mls/ hr Q12H IV Last administered on 09/11/18 08:35; Admin Dose 10.037 MLS/HR; Start 09/06/18 at 09:30 Lansoprazole (Prevacid) 30 mg DAILY@06 NGT Last administered on 09/11/18 05:29; Admin Dose 30 MG; Start 09/07/18 at 06:00 Doxycycline Hyclate 100 mg/ Sodium Chloride 250 ml @ 250 mls/hr Q12 IVPB Last administered on 09/11/18 09:49; Admin Dose 250 MLS/HR; Start 09/06/18 at 21:00 Fentanyl 100 ml @ 2.5 mls/hr TITRATE IV Last administered on 09/07/18 09:19; Admin Dose 2.5 MLS/HR; Start 09/07/18 at 09:30 Fluconazole/ Sodium Chloride 50 ml @ 50 mls/hr Q24H IVPB Last administered on 09/11/18 13:01; Admin Dose 50 MLS/HR; Start 09/07/18 at 11:30 Multivitamins (Multivitamin) 30 ml DAILY NGT Last administered on 09/11/18 09:52; Admin Dose 30 ML; Start 09/07/18 at 14:30 Zinc Sulfate (Zinc Sulfate) 220 mg DAILY PO Last administered on 09/11/18 09:49; Admin Dose 220 MG; Start 09/07/18 at 14:30 Ascorbic Acid (Vitamin C) 500 mg DAILY NGT Last administered on 09/11/18 09:49; Admin Dose 500 MG; Start 09/07/18 at 14:30 Folic Acid (Folic Acid) 1 mg DAILY NGT Last administered on 09/11/18 09:49; Admin Dose 1 MG; Start 09/07/18 at 14:30 Petrolatum (Vaseline) APPLY TO MULTIPLE SC... BID TOP Last administered on 09/10 21:25; Admin Dose 1 EA; Start 09/08/18 at 09:00 Metronidazole (Flagyl) 500 mg Q8 PO Last administered on 09/11/18 05:29; Admin Dose 500 MG; Start 09/08/18 at 14:00 IV Flush (NS 10 ml) 10 ml PRN PRN IV FLUSH LINE; Start 09/09/18 at 11:30 Vancomycin HCl (Vancomycin Oral Syringe) 250 mg Q6 PO Last administered on 09/11/18 05:31; Admin Dose 250 MG; Start 09/10/18 at 12:00 TAYLOR RIZZO NP Sep 11, 2018 13:38
--- NOTE | 2018-09-11 14:21 | CONS ---
Consult Date/Type/Reason Admit Date/Time Aug 29, 2018 at 05:45 Initial Consult Date 09/07/18 Type of Consultation: cv Requesting Provider: SERGIO TREVINO MD Date/Time of Note DATE: 09/11/18 TIME: 14:19 Subjective Interventional cardiology follow-up progress note Subjective: Case discussed with the staff and telemetry was reviewed. Patient has remained sinus rhythm . No long pauses reported. No significant other arrhythmias reported. Patient remains intubated on the vent in the ICU nonverbal. mild secretions per staff O General: Elderly gentleman. Status post intubation on the vent HEENT: NC/AT. pupils are equal. round. NECK: NO JVD. no stridor. CV: RRR. systolic murmur; no gallop or rubs. PULM: no wheezing + rhonchi. GI: SOFT, NT, ND, no rebound or guarding Extremity: trace B/L LE edema. no clubbing. neuro: sedated Psych: calm rectal: deferred EKG normal sinus rhythm Chest x-ray on admission showed: 1. Right basilar interstitial opacities, new from the prior examination from a few hours prior, likely reflecting atelectasis. 2. Mild prominence of the interstitial markings, may reflect mild underlying interstitial edema or chronic lung changes. 3. Mild cardiomegaly and aortic atherosclerosis. Chest x-ray done on 09/06/2018 shows: 1. Atherosclerosis of the thoracic aorta. 2. Persistent bilateral pulmonary infiltrates which could represent infection or non infection related edema or combination of the 2. 3. Endotracheal and nasogastric tubes in place. Echocardiogram done on 08/29/2018 which was personally reviewed shows: There is mild to mod enlargement of left atrium. Normal left ventricular systolic function. Normal left ventricular cavity size. Normal left ventricular wall thickness. Ejection fraction is visually estimated at 60-65 %. Normal appearance of the mitral valve. Mild mitral valve regurgitation. Normal appearance of the aortic valve. No aortic regurgitation. Normal appearance of the tricuspid valve. The estimated Peak RVSP is 53 mmHg. There is mild tricuspid regurgitation. The IVC is not well visualized. Objective Vitals Vital Signs Date Temp Pulse Resp B/P (MAP) Pulse Ox O2 O2 Flow FiO2 Time Delivery Rate 09/11/18 64 12:00 09/11/18 21 132/56 100 10:00 (81) 09/11/18 97.2 Mechanical 08:00 Ventilator 09/11/18 30 08:00 Intake and Output 09/10/18 09/10/18 09/11/18 1515:00 23:00 07:00 IntakeIntake Total 1387.5 ml 827.54 ml 1102.70 ml OutputOutput Total 420 ml 510 ml 630 ml BalanceBalance 967.5 ml 317.54 ml 472.70 ml Results/Medications Result Diagram: 09/11/18 0438 09/11/18 0448 Results 24 hrs Laboratory Tests Test 09/11/18 04:38 09/11/18 04:48 White Blood Count 28.1 H Red Blood Count 4.13 L Hemoglobin 12.7 L Hematocrit 39.2 L Mean Corpuscular Volume 94.9 Mean Corpuscular Hemoglobin 30.8 Mean Corpuscular Hemoglobin Concent 32.4 Red Cell Distribution Width 14.6 H Platelet Count 151 # Mean Platelet Volume 13.0 H Immature Granulocytes % 1.900 H Neutrophils % 86.7 H Lymphocytes % 5.3 L Monocytes % 5.9 Eosinophils % 0.0 Basophils % 0.2 Nucleated Red Blood Cells % 0.0 Immature Granulocytes # 0.540 H Neutrophils # 24.4 H Lymphocytes # 1.5 Monocytes # 1.7 H Eosinophils # 0.0 Basophils # 0.1 Nucleated Red Blood Cells # 0.0 Sodium Level 144 Potassium Level 4.3 Chloride Level 118 H Carbon Dioxide Level 20 L Anion Gap 6 Blood Urea Nitrogen 109 H Creatinine 2.02 H Est Glomerular Filtrat Rate mL/min Glucose Level 119 Calcium Level 7.0 L Phosphorus Level 6.7 H Magnesium Level 2.8 H Home Meds Reported Medications Losartan Potassium* (Losartan Potassium*) 50 Mg Tablet, 50 MG PO DAILY, TAB 08/29/18 Simvastatin (Simvastatin) 20 Mg Tablet, 20 MG PO QHS for 90 Days, #90 08/29/18 Furosemide* (Furosemide*) 40 Mg Tablet, 40 MG PO DAILY for 90 Days, #90 08/29/18 Potassium Chloride (K-Tab ER) 8 Meq Tablet.er, 8 MEQ PO BID for 90 Days, #180 08/29/18 Escitalopram Oxalate* (Escitalopram Oxalate*) 10 Mg Tablet, 20 MG PO DAILY for 90 Days, #90 08/29/18 Hydrocodone Bit-Acetaminophen (Hydrocodone Bit-APAP) 5-325MG Tablet, 1 TAB PO DAILY 08/29/18 Dexlansoprazole (Dexilant) 60 Mg Tree., 60 MG PO DAILY for 90 Days, #90 08/29/18 Amiodarone Hcl* (Amiodarone Hcl*) 200 Mg Tablet, 200 MG PO DAILY for 90 Days, #90 08/29/18 Alprazolam* (Alprazolam*) 0.5 Mg Tablet, 0.5 MG PO QHS for 30 Days, #30 08/29/18 Medications Current Medications IV Flush (NS 3 ml) 3 ml PER PROTOCOL IV ; Start 08/29/18 at 06:00 Ondansetron HCl (Zofran Inj) 4 mg Q6H PRN IV NAUSEA/VOMITING Last administered on 08/31/18at 05:02; Admin Dose 4 MG; Start 08/29/18 at 06:00 Acetaminophen (Tylenol Tab) 650 mg Q6H PRN PO .PAIN 1-3 OR TEMP; Start 08/29/18 at 06:00 Docusate Sodium (Colace) 100 mg Q12H PRN PO .CONSTIPATION Last administered on 08/30/18at 21:37; Admin Dose 100 MG; Start 08/29/18 at 06:00 Magnesium Hydroxide (Milk Of Mag) 30 ml DAILY PRN PO .CONSTIPATION Last administered on 09/02/18at 05:16; Admin Dose 30 ML; Start 08/29/18 at 06:00 Alprazolam (Xanax) 0.5 mg QHS PO Last administered on 09/08/18at 21:18; Admin Dose 0.5 MG; Start 08/29/18 at 21:00 Escitalopram Oxalate (Lexapro) 20 mg DAILY PO Last administered on 09/11/18at 09:49; Admin Dose 20 MG; Start 08/30/18 at 09:00 Docusate Sodium (Colace) 100 mg BID PO Last administered on 09/10/18at 21:24; Admin Dose 100 MG; Start 08/31/18 at 13:30 Lorazepam (Ativan) 0.5 mg Q6H PRN PO ANXIETY; Start 09/02/18 at 13:00 Bisacodyl (Dulcolax Supp) 10 mg DAILY PRN [place] CONSTIPATION; Start 09/03/18 at 12:00 Heparin Sodium (Porcine) (Heparin (5000 Units/1ml)) 5,000 unit BID SC Last administered on 09/11/18 09:52; Admin Dose 5,000 UNIT; Start 09/03/18 at 14:00 Hydralazine HCl (Apresoline) 10 mg Q3 PRN IV ELEVATED SYSTOLIC BP Last administered on 09/05/18 19:48; Admin Dose 10 MG; Start 09/03/18 at 18:00 Albuterol/ Ipratropium (Duoneb) 3 ml Q2H RESP THERAPY PRN HHN SHORTNESS OF BREATH; Start 09/03/18 at 20:00 Lorazepam (Ativan) 1 mg Q6H PRN IV anxiety Last administered on 09/06/18 00:00; Admin Dose 1 MG; Start 09/05/18 at 09:00 Clonidine HCl (Catapres-Tts 1 Patch) 1 patch Q7D TRANSDERM Last administered on 09/05/18 14:32; Admin Dose 1 PATCH; Start 09/05/18 at 13:30 Propofol 100 ml @ 2.509 mls/ hr Q12H IV Last administered on 09/11/18 08:35; Admin Dose 10.037 MLS/HR; Start 09/06/18 at 09:30 Lansoprazole (Prevacid) 30 mg DAILY@06 NGT Last administered on 09/11/18 05:29; Admin Dose 30 MG; Start 09/07/18 at 06:00 Doxycycline Hyclate 100 mg/ Sodium Chloride 250 ml @ 250 mls/hr Q12 IVPB Last administered on 09/11/18 09:49; Admin Dose 250 MLS/HR; Start 09/06/18 at 21:00 Fentanyl 100 ml @ 2.5 mls/hr TITRATE IV Last administered on 09/07/18 09:19; Admin Dose 2.5 MLS/HR; Start 09/07/18 at 09:30 Fluconazole/ Sodium Chloride 50 ml @ 50 mls/hr Q24H IVPB Last administered on 09/11/18 13:01; Admin Dose 50 MLS/HR; Start 09/07/18 at 11:30 Multivitamins (Multivitamin) 30 ml DAILY NGT Last administered on 09/11/18 09:52; Admin Dose 30 ML; Start 09/07/18 at 14:30 Zinc Sulfate (Zinc Sulfate) 220 mg DAILY PO Last administered on 09/11/18 09:49; Admin Dose 220 MG; Start 09/07/18 at 14:30 Ascorbic Acid (Vitamin C) 500 mg DAILY NGT Last administered on 09/11/18 09:49; Admin Dose 500 MG; Start 09/07/18 at 14:30 Folic Acid (Folic Acid) 1 mg DAILY NGT Last administered on 09/11/18 09:49; Admin Dose 1 MG; Start 09/07/18 at 14:30 Petrolatum (Vaseline) APPLY TO MULTIPLE SC... BID TOP Last administered on 09/10/18 21:25; Admin Dose 1 EA; Start 09/08/18 at 09:00 Metronidazole (Flagyl) 500 mg Q8 PO Last administered on 09/11/18 05:29; Admin Dose 500 MG; Start 09/08/18 at 14:00 IV Flush (NS 10 ml) 10 ml PRN PRN IV FLUSH LINE; Start 09/09/18 at 11:30 Vancomycin HCl (Vancomycin Oral Syringe) 250 mg Q6 PO Last administered on 09/11/18 05:31; Admin Dose 250 MG; Start 09/10/18 at 12:00 Assessment/Plan Hospital Course (Demo Recall) 1. Marked sinus bradycardia: Appears to be asymptomatic and in sinus we will continue to monitor. Probably at least partially related to sedation as well as amiodarone 2. Acute hypoxemic respiratory failure status post intubation on the vent 3. Pulmonary hypertension 4. History of proximal atrial fibrillation 5. Hypertension 6. Urinary retention status post surgery 7. Pneumonia possible COPD possible ARDS 8. Acute renal failure Recommendations: off the amiodarone given his marked bradycardia as well as his significant pulmonary disease. Continue blood pressure control. Vent support will be continued managed as per pulmonary Respiratory care to be continued. Continue with ICU care as long as patient is in the ventilator. Antibiotic management as per internal medicine consultants We will continue to monitor on telemetry thyroid management as per IM Thank you for his referral. We will continue to follow along with you AMANDA DUNBRA MD [facility] AMANDA DUNBAR MD Sep 11, 2018 14:21
[2018-09-11] MEDS: ALPRAZOLAM 0.5 MG TAB PO SCH (21:39)
[2018-09-11] MEDS: BALSAM PERU/CASTOR OIL 60 GM TUBE TOP SCH (21:39)
[2018-09-12] VITALS (35 sets, daily range): BP systolic 124–156; BP diastolic 48–73; PULSE 55–63; RESP 20–31
[2018-09-12] MEDS: PROPOFOL 100 ML IV SCH ×2 (01:37→13:19)
--- NOTE | 2018-09-12 03:24 | PN ---
DATE: 09/11/2018 SUBJECTIVE: The patient seen. He had a trial of CPAP over 2 hours. Overall, did okay, he received a dose of Lasix as chest x-ray shows slightly increased congestion. Case discussed with his nephew ansley t bedside. PHYSICAL EXAMINATION: VITAL SIGNS: Temperature 97.2, pulse 64, respirations 21, blood pressure 132/56, saturation 100% on 30% FIO2. GENERAL: The patient is in no acute distress, ventilated, sedated but arousable, pale, some excoriat ion in the nasal folds. CARDIOVASCULAR: S1, S2. LUNGS: Decreased bilaterally. Faint rhonchi at the bases. ABDOMEN: Soft, nontender. EXTREMITIES: +1 to 2 edema mostly involving the right foot and trace edema throughout. LABORATORY DATA: Done today shows a white count improved to 28.1, hemoglobin 12.7, hematocrit 39, pl atelet count 151, neutrophils 87%, lymphs at 5%. Chemistry: Sodium 144, potassium 4.3, chloride 19, bicarbonate 20, BUN is 109, creatinine 2.02, glucose of 119. Chest x-ray read today as follows: In terval increase in pulmonary vascular congestion, interval increase in small bilateral pleural effusi on with adjacent atelectasis or infiltrate similar to 09/09/2018. MEDICATIONS: 1. Vancomycin 250 q. 6 hours. 2. Flagyl 500 b.i.d. 3. b.i.d. 4. Multivitamin 30 mL daily. 5. Zinc sulfate 220 daily. 7. Vitamin C 1 gram daily. 8. Folic acid daily. 9. Diflucan q.24h. 10. Ventolin as directed, currently off. 11. Prevacid 10 mg daily. 12. Doxycycline IV q.12h. 13. Propofol 20 mcg as directed. 14. Clonidine patch TTS 1 weekly. 15. Ativan 1 mg p.r.n. 16. DuoNeb p.r.n. 17. Hydralazine p.r.n. 18. Heparin 5000 b.i.d. 19. Ativan p.r.n. 20. Dulcolax p.r.n. 21. Colace 100 b.i.d. 22. Lexapro 10 mg daily. 23. Xanax 0.5 at bedtime. 20. Zofran. 21. . ASSESSMENT AND PLAN: This is an unfortunate 87-year-old Chinese male with history of atrial fibrill ation, hypertension, urinary retention, low back pain and depression, presented with worsening shortn ess of breath, was found to have fevers, acute bronchitis and developing worsening patchy infiltrates . 1. Respiratory. Remains ventilated. The patient's picture initially suggested ARDS, but responded well to steroids, breathing treatments, diuretics and antibiotics. Hopefully, we can extubate him. Dr. Ponce is following. 2. Cardiovascular. Vitals are stable with the clonidine. Continue heparin for DVT prophylaxis. 3. Gastrointestinal. Continue Prevacid. 4. Infectious disease. The patient with worsening leukocytosis, empirically treated for C. diff col itis with oral vancomycin. Also on Flagyl. White count slightly better. Observe. Follow up all cu ltures. 5. Acute renal failure, partly worsening due to diuretics administration. 6. Neurologically on propofol course to keep comfortable. Hopefully, we can wean him off the vent t omorrow. 7. Diarrhea, concerning for C. diff despite negative study. Continue above treatment. 8. Dysphagia. Resume Nutren pulmonary at 50 mL an hour. 9. Patient is FULL CODE. 10. History of depression, has been on Lexapro. 11. Infectious disease management and antibiotics. ID is following the patient and antibiotics are being adjusted. Continue to follow WBC cultures and fevers. 12. Condition remains guarded. We chelle machuca follow. Dictated By: SERGIO CERVANTES/NEHAL Conf#: [id number] DID#: [id number]
[2018-09-12] MEDS: metroNIDAZOLE 500 MG TAB PO SCH ×3 (05:35→22:00)
[2018-09-12] MEDS: VANCOMYCIN HCL 250 MG/5ML POSYG PO SCH ×3 (05:35→16:39)
[2018-09-12] MEDS: LANSOPRAZOLE 30 MG CAP NGT SCH (05:36)
[2018-09-12] MEDS: DOCUSATE SODIUM 100 MG CAP PO SCH ×2 (07:42→21:00)
[2018-09-12] MEDS: ASCORBIC ACID 500 MG TAB NGT SCH (08:21)
[2018-09-12] MEDS: ZINC SULFATE 220 MG CAP PO SCH (08:21)
[2018-09-12] MEDS: MULTIVITAMINS 30 ML CUP NGT SCH (08:21)
[2018-09-12] MEDS: FOLIC ACID 1 MG TAB NGT SCH (08:21)
[2018-09-12] MEDS: ESCITALOPRAM 10 MG TAB PO SCH (08:21)
[2018-09-12] MEDS: PETROLATUM 5 GM OINT TOP SCH ×2 (08:22→21:00)
[2018-09-12] MEDS: BALSAM PERU/CASTOR OIL 60 GM TUBE TOP SCH ×2 (08:22→21:00)
[2018-09-12] MEDS: HEPARIN 5,000 UNIT/1 ML VIAL SC SCH ×2 (08:36→21:00)
[2018-09-12] MEDS: DOXYCYCLINE 100 MG in SOD CHLORIDE 0.9% 250 ML IVPB SCH ×2 (08:48→21:00)
[2018-09-12] MEDS: FLUCONAZOLE 100 MG/50 ML (PMX) 50 ML IVPB SCH (11:22)
--- NOTE | 2018-09-12 11:46 | CONS ---
Assessment/Plan Assessment/Plan Hospital Course (Demo Recall) 1. Nonoliguric acute kidney injury on top of chronic kidney disease with unknown baseline creatinine. Etiology of acute kidney injury is secondary to hemodynamics, possible tubular injury. still in injury phase. continue current treatment plan, supportive care, renally dose all medications. We will continue to monitor. 2. Hypernatremia. Sodium levels have improved. Continue free water flushes at current rate. 3. Anemia. Continue to monitor hemoglobin and hematocrit levels. 4. Mineral bone disorder, monitor calcium and phosphorus levels. 5. Ventilator-dependent respiratory failure. Vent settings have been reviewed. Continue to monitor. Follow up with pulmonary. 6. Sepsis secondary to pneumonia. Continue current antibiotic therapy. 7. Acute encephalopathy, etiology is toxic metabolic. Continue to monitor. 8. History of diastolic heart failure. I's and O's are being monitored closely. We will give intermittent diuretic therapy as needed. 9. Diarrhea. Continue empiric Flagyl. 10. Benign prostatic hypertrophy. Continue medical management. Consultation Date/Type/Reason Admit Date/Time Aug 29, 2018 at 05:45 Initial Consult Date 09/07/18 Requesting Provider: SERGIO TREVINO MD Date/Time of Note DATE: 09/12/18 TIME: 11:44 24 HR Interval Summary Free Text/Dictation pt remains on the ventilator. BP stable. adequate urine output via neumann catheter d/w rn PE: gen nonverbal cv rrr pulm coarse bs abd soft, nd nt +bs ext: no edema Exam/Review of Systems Exam Vitals Vital Signs Date Temp Pulse Resp B/P (MAP) Pulse Ox O2 O2 Flow FiO2 Time Delivery Rate 09/12/18 56 20 124/49 100 11:00 (74) 09/12/18 30 08:00 09/12/18 99.8 Mechanical 08:00 Ventilator Intake and Output 09/11/18 09/11/18 09/12/18 1515:00 23:00 07:00 IntakeIntake Total 350.185 ml 580.296 ml 630.296 ml OutputOutput Total 750 ml 830 ml 466 ml BalanceBalance -399.815 ml -249.704 ml 164.296 ml Results Result Diagram: 09/12/18 0335 09/12/18 0335 Results 24hrs Laboratory Tests Test 09/12/18 03:35 White Blood Count 21.5 #H Red Blood Count 3.65 L Hemoglobin 11.7 L Hematocrit 35.0 L Mean Corpuscular Volume 95.9 Mean Corpuscular Hemoglobin 32.1 Mean Corpuscular Hemoglobin Concent 33.4 Red Cell Distribution Width 14.5 Platelet Count 124 L Mean Platelet Volume 13.0 H Immature Granulocytes % 1.300 H Neutrophils % 88.3 H Lymphocytes % 6.6 L Monocytes % 3.5 Eosinophils % 0.1 Basophils % 0.2 Nucleated Red Blood Cells % 0.0 Immature Granulocytes # 0.270 H Neutrophils # 19.0 H Lymphocytes # 1.4 Monocytes # 0.8 Eosinophils # 0.0 Basophils # 0.0 Nucleated Red Blood Cells # 0.0 Sodium Level 144 Potassium Level 4.1 Chloride Level 117 H Carbon Dioxide Level 20 L Anion Gap 7 Blood Urea Nitrogen 116 H Creatinine 2.39 H Est Glomerular Filtrat Rate mL/min Glucose Level 106 Calcium Level 7.2 L Phosphorus Level 7.1 H Magnesium Level 2.8 H Thyroid Stimulating Hormone (TSH) 1.870 Free Thyroxine 0.92 Medications Medication Current Medications IV Flush (NS 3 ml) 3 ml PER PROTOCOL IV ; Start 08/29/18 at 06:00 Ondansetron HCl (Zofran Inj) 4 mg Q6H PRN IV NAUSEA/VOMITING Last administered on 08/31/18 05:02; Admin Dose 4 MG; Start 08/29/18 at 06:00 Acetaminophen (Tylenol Tab) 650 mg Q6H PRN PO .PAIN 1-3 OR TEMP; Start 08/29/18 at 06:00 Docusate Sodium (Colace) 100 mg Q12H PRN PO .CONSTIPATION Last administered on 08/30/18at 21:37; Admin Dose 100 MG; Start 08/29/18 at 06:00 Magnesium Hydroxide (Milk Of Mag) 30 ml DAILY PRN PO .CONSTIPATION Last administered on 09/02/18 05:16; Admin Dose 30 ML; Start 08/29/18 at 06:00 Alprazolam (Xanax) 0.5 mg QHS PO Last administered on 09/11/18 21:39; Admin Dose 0.5 MG; Start 08/29/18 at 21:00 Escitalopram Oxalate (Lexapro) 20 mg DAILY PO Last administered on 09/12/18 08:21; Admin Dose 20 MG; Start 08/30/18 at 09:00 Docusate Sodium (Colace) 100 mg BID PO Last administered on 09/10/18 21:24; Admin Dose 100 MG; Start 08/31/18 at 13:30 Lorazepam (Ativan) 0.5 mg Q6H PRN PO ANXIETY; Start 09/02/18 at 13:00 Bisacodyl (Dulcolax Supp) 10 mg DAILY PRN ID CONSTIPATION; Start 09/03/18 at 12:00 Heparin Sodium (Porcine) (Heparin (5000 Units/1ml)) 5,000 unit BID SC Last administered on 09/12/18 08:36; Admin Dose 5,000 UNIT; Start 09/03/18 at 14:00 Hydralazine HCl (Apresoline) 10 mg Q3 PRN IV ELEVATED SYSTOLIC BP Last administered on 09/05/18 19:48; Admin Dose 10 MG; Start 09/03/18 at 18:00 Albuterol/ Ipratropium (Duoneb) 3 ml Q2H RESP THERAPY PRN HHN SHORTNESS OF BREATH; Start 09/03/18 at 20:00 Lorazepam (Ativan) 1 mg Q6H PRN IV anxiety Last administered on 09/06/18 00:00; Admin Dose 1 MG; Start 09/05/18 at 09:00 Clonidine HCl (Catapres-Tts 1 Patch) 1 patch Q7D TRANSDERM Last administered on 09/05/18 14:32; Admin Dose 1 PATCH; Start 09/05/18 at 13:30 Propofol 100 ml @ 2.509 mls/ hr Q12H IV Last administered on 09/12/18 01:37; Admin Dose 10.037 MLS/HR; Start 09/06/18 at 09:30 Lansoprazole (Prevacid) 30 mg DAILY@06 NGT Last administered on 09/12/18 05:36; Admin Dose 30 MG; Start 09/07/18 at 06:00 Doxycycline Hyclate 100 mg/ Sodium Chloride 250 ml @ 250 mls/hr Q12 IVPB Last administered on 09/12/18 08:48; Admin Dose 250 MLS/HR; Start 09/06/18 at 21:00 Fentanyl 100 ml @ 2.5 mls/hr TITRATE IV Last administered on 09/07/18 09:19; Admin Dose 2.5 MLS/HR; Start 09/07/18 at 09:30 Fluconazole/ Sodium Chloride 50 ml @ 50 mls/hr Q24H IVPB Last administered on 09/12/18 11:22; Admin Dose 50 MLS/HR; Start 09/07/18 at 11:30 Multivitamins (Multivitamin) 30 ml DAILY NGT Last administered on 09/12/18 08:21; Admin Dose 30 ML; Start 09/07/18 at 14:30 Zinc Sulfate (Zinc Sulfate) 220 mg DAILY PO Last administered on 09/12/18 08:21; Admin Dose 220 MG; Start 09/07/18 at 14:30 Ascorbic Acid (Vitamin C) 500 mg DAILY NGT Last administered on 09/12/18 08:21; Admin Dose 500 MG; Start 09/07/18 at 14:30 Folic Acid (Folic Acid) 1 mg DAILY NGT Last administered on 09/12/18 08:21; Admin Dose 1 MG; Start 09/07/18 at 14:30 Petrolatum (Vaseline) APPLY TO MULTIPLE SC... BID TOP Last administered on 09/12/18 08:22; Admin Dose 1 EA; Start 09/08/18 at 09:00 Metronidazole (Flagyl) 500 mg Q8 PO Last administered on 09/12/18 05:35; Admin Dose 500 MG; Start 09/08/18 at 14:00 IV Flush (NS 10 ml) 10 ml PRN PRN IV FLUSH LINE; Start 09/09/18 at 11:30 Vancomycin HCl (Vancomycin Oral Syringe) 250 mg Q6 PO Last administered on 09/12/18 05:35; Admin Dose 250 MG; Start 09/10/18 at 12:00 VLADIMIR ANN MD Sep 12, 2018 11:45
--- NOTE | 2018-09-12 12:51 | CONS ---
Consult Date/Type/Reason Admit Date/Time Aug 29, 2018 at 05:45 Initial Consult Date 09/07/18 Type of Consultation: Pulm/CCM Requesting Provider: SERGIO TREVINO MD Date/Time of Note DATE: 09/12/18 TIME: 12:44 Subjective No events. Awake on the vent. Objective Vitals Vital Signs Date Temp Pulse Resp B/P (MAP) Pulse Ox O2 O2 Flow FiO2 Time Delivery Rate 09/12/18 56 20 124/49 100 11:00 (74) 09/12/18 30 11:00 09/12/18 99.8 Mechanical 08:00 Ventilator Intake and Output 09/11/18 09/11/18 09/12/18 1515:00 23:00 07:00 IntakeIntake Total 350.185 ml 580.296 ml 630.296 ml OutputOutput Total 750 ml 830 ml 466 ml BalanceBalance -399.815 ml -249.704 ml 164.296 ml Exam HEENT: Neck supple; no JVD; no LAD; + ET tube CVS: RRR, S1 and S2 CHEST: Coarse BS b/l ABD: Soft, NT, + BS EXT: No c/c; + edema NEURO: Alert; moves all extremities Results/Medications Result Diagram: 09/12/18 0335 09/12/18 0335 Results 24 hrs Laboratory Tests Test 09/12/18 03:35 White Blood Count 21.5 #H Red Blood Count 3.65 L Hemoglobin 11.7 L Hematocrit 35.0 L Mean Corpuscular Volume 95.9 Mean Corpuscular Hemoglobin 32.1 Mean Corpuscular Hemoglobin Concent 33.4 Red Cell Distribution Width 14.5 Platelet Count 124 L Mean Platelet Volume 13.0 H Immature Granulocytes % 1.300 H Neutrophils % 88.3 H Lymphocytes % 6.6 L Monocytes % 3.5 Eosinophils % 0.1 Basophils % 0.2 Nucleated Red Blood Cells % 0.0 Immature Granulocytes # 0.270 H Neutrophils # 19.0 H Lymphocytes # 1.4 Monocytes # 0.8 Eosinophils # 0.0 Basophils # 0.0 Nucleated Red Blood Cells # 0.0 Sodium Level 144 Potassium Level 4.1 Chloride Level 117 H Carbon Dioxide Level 20 L Anion Gap 7 Blood Urea Nitrogen 116 H Creatinine 2.39 H Est Glomerular Filtrat Rate mL/min Glucose Level 106 Calcium Level 7.2 L Phosphorus Level 7.1 H Magnesium Level 2.8 H Thyroid Stimulating Hormone (TSH) 1.870 Free Thyroxine 0.92 Home Meds Reported Medications Losartan Potassium* (Losartan Potassium*) 50 Mg Tablet, 50 MG PO DAILY, TAB 08/29/18 Simvastatin (Simvastatin) 20 Mg Tablet, 20 MG PO QHS for 90 Days, #90 08/29/18 Furosemide* (Furosemide*) 40 Mg Tablet, 40 MG PO DAILY for 90 Days, #90 08/29/18 Potassium Chloride (K-Tab ER) 8 Meq Tablet.er, 8 MEQ PO BID for 90 Days, #180 08/29/18 Escitalopram Oxalate* (Escitalopram Oxalate*) 10 Mg Tablet, 20 MG PO DAILY for 90 Days, #90 08/29/18 Hydrocodone Bit-Acetaminophen (Hydrocodone Bit-APAP) 5-325MG Tablet, 1 TAB PO DAILY 08/29/18 Dexlansoprazole (Dexilant) 60 Mg Cap., 60 MG PO DAILY for 90 Days, #90 08/29/18 Amiodarone Hcl* (Amiodarone Hcl*) 200 Mg Tablet, 200 MG PO DAILY for 90 Days, #90 08/29/18 Alprazolam* (Alprazolam*) 0.5 Mg Tablet, 0.5 MG PO QHS for 30 Days, #30 08/29/18 Medications Current Medications IV Flush (NS 3 ml) 3 ml PER PROTOCOL IV ; Start 08/29/18 at 06:00 Ondansetron HCl (Zofran Inj) 4 mg Q6H PRN IV NAUSEA/VOMITING Last administered on 08/31/18at 05:02; Admin Dose 4 MG; Start 08/29/18 at 06:00 Acetaminophen (Tylenol Tab) 650 mg Q6H PRN PO .PAIN 1-3 OR TEMP; Start 08/29/18 at 06:00 Docusate Sodium (Colace) 100 mg Q12H PRN PO .CONSTIPATION Last administered on 08/30/18at 21:37; Admin Dose 100 MG; Start 08/29/18 at 06:00 Magnesium Hydroxide (Milk Of Mag) 30 ml DAILY PRN PO .CONSTIPATION Last administered on 09/02/18at 05:16; Admin Dose 30 ML; Start 08/29/18 at 06:00 Alprazolam (Xanax) 0.5 mg QHS PO Last administered on 09/11/18 21:39; Admin Dose 0.5 MG; Start 08/29/18 at 21:00 Escitalopram Oxalate (Lexapro) 20 mg DAILY PO Last administered on 09/12/18 08:21; Admin Dose 20 MG; Start 08/30/18 at 09:00 Docusate Sodium (Colace) 100 mg BID PO Last administered on 09/10/18 21:24; Admin Dose 100 MG; Start 08/31/18 at 13:30 Lorazepam (Ativan) 0.5 mg Q6H PRN PO ANXIETY; Start 09/02/18 at 13:00 Bisacodyl (Dulcolax Supp) 10 mg DAILY PRN DE CONSTIPATION; Start 09/03/18 at 12:00 Heparin Sodium (Porcine) (Heparin (5000 Units/1ml)) 5,000 unit BID SC Last administered on 09/12/18 08:36; Admin Dose 5,000 UNIT; Start 09/03/18 at 14:00 Hydralazine HCl (Apresoline) 10 mg Q3 PRN IV ELEVATED SYSTOLIC BP Last administered on 09/05/18 19:48; Admin Dose 10 MG; Start 09/03/18 at 18:00 Albuterol/ Ipratropium (Duoneb) 3 ml Q2H RESP THERAPY PRN HHN SHORTNESS OF BREATH; Start 09/03/18 at 20:00 Lorazepam (Ativan) 1 mg Q6H PRN IV anxiety Last administered on 09/06/18 00:00; Admin Dose 1 MG; Start 09/05/18 at 09:00 Clonidine HCl (Catapres-Tts 1 Patch) 1 patch Q7D TRANSDERM Last administered on 09/05/18 14:32; Admin Dose 1 PATCH; Start 09/05/18 at 13:30 Propofol 100 ml @ 2.509 mls/ hr Q12H IV Last administered on 09/12/18 01:37; Admin Dose 10.037 MLS/HR; Start 09/06/18 at 09:30 Lansoprazole (Prevacid) 30 mg DAILY@06 NGT Last administered on 09/12/18 05:36; Admin Dose 30 MG; Start 09/07/18 at 06:00 Doxycycline Hyclate 100 mg/ Sodium Chloride 250 ml @ 250 mls/hr Q12 IVPB Last administered on 09/12/18 08:48; Admin Dose 250 MLS/HR; Start 09/06/18 at 21:00 Fentanyl 100 ml @ 2.5 mls/hr TITRATE IV Last administered on 09/07/18 09:19; Admin Dose 2.5 MLS/HR; Start 09/07/18 at 09:30 Fluconazole/ Sodium Chloride 50 ml @ 50 mls/hr Q24H IVPB Last administered on 09/12/18 11:22; Admin Dose 50 MLS/HR; Start 09/07/18 at 11:30 Multivitamins (Multivitamin) 30 ml DAILY NGT Last administered on 09/12/18 08:21; Admin Dose 30 ML; Start 09/07/18 at 14:30 Zinc Sulfate (Zinc Sulfate) 220 mg DAILY PO Last administered on 09/12/18 08:21; Admin Dose 220 MG; Start 09/07/18 at 14:30 Ascorbic Acid (Vitamin C) 500 mg DAILY NGT Last administered on 09/12/18 08:21; Admin Dose 500 MG; Start 09/07/18 at 14:30 Folic Acid (Folic Acid) 1 mg DAILY NGT Last administered on 09/12/18 08:21; Admin Dose 1 MG; Start 09/07/18 at 14:30 Petrolatum (Vaseline) APPLY TO MULTIPLE SC... BID TOP Last administered on 09/12/18 08:22; Admin Dose 1 EA; Start 09/08/18 at 09:00 Metronidazole (Flagyl) 500 mg Q8 PO Last administered on 09/12/18 05:35; Admin Dose 500 MG; Start 09/08/18 at 14:00 IV Flush (NS 10 ml) 10 ml PRN PRN IV FLUSH LINE; Start 09/09/18 at 11:30 Vancomycin HCl (Vancomycin Oral Syringe) 250 mg Q6 PO Last administered on 09/12/18 05:35; Admin Dose 250 MG; Start 09/10/18 at 12:00 Assessment/Plan Assessment/Plan (Daily) IMP: 1. Respiratory Failure---hypoxemic/hypercapnic 2. Multifocal pneumonia 3. Pulmonary hypertension 4. ARF 5. Hypertension 6. Urinary retention status post surgery 7. Leukocytosis RECS: 1. CPAP with PS--will assess for possible extubation today. 2. Intravascular volume status remains unclear to me. Would try more diuresis though increase in creatinine after lasix yesterday 3. Abx per ID 4. Avoid benzo's 5. Follow renal function 40 min cc time MICAELA AGUILERA MD Sep 12, 2018 12:51
--- NOTE | 2018-09-12 12:54 | CONS ---
Assessment/Plan Assessment/Plan Hospital Course (Demo Recall) Patient is awake and comfortable on vent he had a low-grade fever of 99.8 this morning he is in no distress family at bedside. WBC 21.5 platelets 124 neutrophils 88.3 BUN 116 creatinine 2.39 Microbiology: Repeat blood and urine culture negative Chest x-ray this morning revealed interval increase in pulmonary vascular congestion Antimicrobials: Flagyl, oral vancomycin, fluconazole and doxycycline Microbiology: Sputum culture gr 1ew Leah albicans Indwelling's: Endotracheal tube NG tube Mcgowan catheter Physical examination: Well-developed well-nourished elderly man who is awake in no distress. Head atraumatic normocephalic sclera nonicteric vehicle mucosa dry neck is supple chest rise symmetrical breath sounds with bilateral rhonchi. Heart: S1-S2. Abdomen soft bowel sounds present. Assessment: 1. Acute hypoxemic respiratory failure 2. Pneumonia/fluid overload 3. Mild CHF 4. Bradycardia 5. Acute kidney injury 6. Diarrhea 7. Leukocytosis, likely steroid-induced versus leukemoid reaction Plan: Clinically doing better, continue present care, weaning trials per p ulmonary Consultation Date/Type/Reason Admit Date/Time Aug 29, 2018 at 05:45 Initial Consult Date 08/30/18 Type of Consult id Requesting Provider: SERGIO TREVINO MD Date/Time of Note DATE: 09/12/18 TIME: 12:53 Exam/Review of Systems Exam Vitals Vital Signs Date Temp Pulse Resp B/P (MAP) Pulse Ox O2 O2 Flow FiO2 Time Delivery Rate 09/12/18 56 20 124/49 100 11:00 (74) 09/12/18 30 11:00 09/12/18 99.8 Mechanical 08:00 Ventilator Intake and Output 09/11/18 09/11/18 09/12/18 1515:00 23:00 07:00 IntakeIntake Total 350.185 ml 580.296 ml 630.296 ml OutputOutput Total 750 ml 830 ml 466 ml BalanceBalance -399.815 ml -249.704 ml 164.296 ml Results Result Diagram: 09/12/18 0335 09/12/18 0335 Results 24hrs Laboratory Tests Test 09/12/18 03:35 White Blood Count 21.5 #H Red Blood Count 3.65 L Hemoglobin 11.7 L Hematocrit 35.0 L Mean Corpuscular Volume 95.9 Mean Corpuscular Hemoglobin 32.1 Mean Corpuscular Hemoglobin Concent 33.4 Red Cell Distribution Width 14.5 Platelet Count 124 L Mean Platelet Volume 13.0 H Immature Granulocytes % 1.300 H Neutrophils % 88.3 H Lymphocytes % 6.6 L Monocytes % 3.5 Eosinophils % 0.1 Basophils % 0.2 Nucleated Red Blood Cells % 0.0 Immature Granulocytes # 0.270 H Neutrophils # 19.0 H Lymphocytes # 1.4 Monocytes # 0.8 Eosinophils # 0.0 Basophils # 0.0 Nucleated Red Blood Cells # 0.0 Sodium Level 144 Potassium Level 4.1 Chloride Level 117 H Carbon Dioxide Level 20 L Anion Gap 7 Blood Urea Nitrogen 116 H Creatinine 2.39 H Est Glomerular Filtrat Rate mL/min Glucose Level 106 Calcium Level 7.2 L Phosphorus Level 7.1 H Magnesium Level 2.8 H Thyroid Stimulating Hormone (TSH) 1.870 Free Thyroxine 0.92 Medications Medication Current Medications IV Flush (NS 3 ml) 3 ml PER PROTOCOL IV ; Start 08/29/18 at 06:00 Ondansetron HCl (Zofran Inj) 4 mg Q6H PRN IV NAUSEA/VOMITING Last administered on 08/31/18 05:02; Admin Dose 4 MG; Start 08/29/18 at 06:00 Acetaminophen (Tylenol Tab) 650 mg Q6H PRN PO .PAIN 1-3 OR TEMP; Start 08/29/18 at 06:00 Docusate Sodium (Colace) 100 mg Q12H PRN PO .CONSTIPATION Last administered on 08/30/18 21:37; Admin Dose 100 MG; Start 08/29/18 at 06:00 Magnesium Hydroxide (Milk Of Mag) 30 ml DAILY PRN PO .CONSTIPATION Last administered on 09/02/18 05:16; Admin Dose 30 ML; Start 08/29/18 at 06:00 Alprazolam (Xanax) 0.5 mg QHS PO Last administered on 09/11/18 21:39; Admin Dose 0.5 MG; Start 08/29/18 at 21:00 Escitalopram Oxalate (Lexapro) 20 mg DAILY PO Last administered on 09/12/18 08:21; Admin Dose 20 MG; Start 08/30/18 at 09:00 Docusate Sodium (Colace) 100 mg BID PO Last administered on 09/10/18 21:24; Admin Dose 100 MG; Start 08/31/18 at 13:30 Lorazepam (Ativan) 0.5 mg Q6H PRN PO ANXIETY; Start 09/02/18 at 13:00 Bisacodyl (Dulcolax Supp) 10 mg DAILY PRN ME CONSTIPATION; Start 09/03/18 at 12:00 Heparin Sodium (Porcine) (Heparin (5000 Units/1ml)) 5,000 unit BID SC Last administered on 09/12/18 08:36; Admin Dose 5,000 UNIT; Start 09/03/18 at 14:00 Hydralazine HCl (Apresoline) 10 mg Q3 PRN IV ELEVATED SYSTOLIC BP Last administered on 09/05/18 19:48; Admin Dose 10 MG; Start 09/03/18 at 18:00 Albuterol/ Ipratropium (Duoneb) 3 ml Q2H RESP THERAPY PRN HHN SHORTNESS OF BREATH; Start 09/03/18 at 20:00 Lorazepam (Ativan) 1 mg Q6H PRN IV anxiety Last administered on 09/06/18 00:00; Admin Dose 1 MG; Start 09/05/18 at 09:00 Clonidine HCl (Catapres-Tts 1 Patch) 1 patch Q7D TRANSDERM Last administered on 09/05/18 14:32; Admin Dose 1 PATCH; Start 09/05/18 at 13:30 Propofol 100 ml @ 2.509 mls/ hr Q12H IV Last administered on 09/12/18 01:37; Admin Dose 10.037 MLS/HR; Start 09/06/18 at 09:30 Lansoprazole (Prevacid) 30 mg DAILY@06 NGT Last administered on 09/12/18 05:36; Admin Dose 30 MG; Start 09/07/18 at 06:00 Doxycycline Hyclate 100 mg/ Sodium Chloride 250 ml @ 250 mls/hr Q12 IVPB Last administered on 09/12/18 08:48; Admin Dose 250 MLS/HR; Start 09/06/18 at 21:00 Fentanyl 100 ml @ 2.5 mls/hr TITRATE IV Last administered on 09/07/18 09:19; Admin Dose 2.5 MLS/HR; Start 09/07/18 at 09:30 Fluconazole/ Sodium Chloride 50 ml @ 50 mls/hr Q24H IVPB Last administered on 09/12/18 11:22; Admin Dose 50 MLS/HR; Start 09/07/18 at 11:30 Multivitamins (Multivitamin) 30 ml DAILY NGT Last administered on 09/12/18 08:21; Admin Dose 30 ML; Start 09/07/18 at 14:30 Zinc Sulfate (Zinc Sulfate) 220 mg DAILY PO Last administered on 09/12/18 08:21; Admin Dose 220 MG; Start 09/07/18 at 14:30 Ascorbic Acid (Vitamin C) 500 mg DAILY NGT Last administered on 09/12/18 08:21; Admin Dose 500 MG; Start 09/07/18 at 14:30 Folic Acid (Folic Acid) 1 mg DAILY NGT Last administered on 09/12/18 08:21; Admin Dose 1 MG; Start 09/07/18 at 14:30 Petrolatum (Vaseline) APPLY TO MULTIPLE SC... BID TOP Last administered on 09/12/18 08:22; Admin Dose 1 EA; Start 09/08/18 at 09:00 Metronidazole (Flagyl) 500 mg Q8 PO Last administered on 09/12/18 05:35; Admin Dose 500 MG; Start 09/08/18 at 14:00 IV Flush (NS 10 ml) 10 ml PRN PRN IV FLUSH LINE; Start 09/09/18 at 11:30 Vancomycin HCl (Vancomycin Oral Syringe) 250 mg Q6 PO Last administered on 09/12/18 05:35; Admin Dose 250 MG; Start 09/10/18 at 12:00 TAYLOR RIZZO NP Sep 12, 2018 12:54
[2018-09-12] MEDS: CLONIDINE 0.1 MG/24 HR PATCH TRANSDERM SCH (13:19)
[2018-09-12] MEDS: LACTOBACILLUS RHAMNOSUS CAP PO SCH ×2 (14:18→21:00)
[2018-09-12] MEDS: TRIAMCINOLONE ACET 0.1% 15 GM CR TOP SCH ×2 (16:38→21:00)
[2018-09-12] MEDS: valACYclovir 500 MG TAB PO SCH ×2 (16:39→21:00)
--- NOTE | 2018-09-12 19:38 | PN ---
DATE: 09/12/2018 SUBJECTIVE: The patient is seen. Unfortunately, he failed CPAP trial as he was anxious and not doin g well. Noted ongoing low-grade temperature of 99.8 T-max. Will order another set of blood cultures and urine studies. PHYSICAL EXAMINATION: VITAL SIGNS: Temperature 99.6, pulse 61, respirations 31, blood pressure 144/50, saturation 100% on 30% FIO2. GENERAL: The patient is in no acute distress. The patient with a nasal/oral rash. CARDIOVASCULAR: S1 and S2. LUNGS: Decreased bilaterally. ABDOMEN: Soft, distended. EXTREMITIES: There is trace to +1 edema, upper and lower extremity. LABORATORY DATA: White count is 21.5, hemoglobin 11.7, hematocrit 35, platelet count of 124, neutrop hils 88%, lymphs at 7%. Chemistry: Sodium 144, potassium 4.1, chloride 117, bicarb is 20, BUN is 11 6, creatinine 2.39, and glucose of 106. TSH is 1.87, free T4 0.92. MEDICATIONS: Include: 1. Vancomycin 250 q.6 hours empirically for C. diff. 2. Flagyl 500 q.8. 3. Vaseline b.i.d. 3. Multivitamin 30 mL daily. 4. Zinc sulfate 220 daily. 5. Vitamin C 500 mg daily. 6. Folic acid 1 mg daily. 7. Diflucan IV dose per pharmacy daily. 8. Fentanyl, currently off. 9. Prevacid 30 mg daily. 10. Doxycycline q.12. 11. Clonidine TTS 1 weekly. 12. Ativan p.r.n. 13. DuoNebs p.r.n. 14. Hydralazine p.r.n. 15. Heparin 5000 b.i.d. 16. Ativan 0.5 q.6 p.r.n. 17. Colace 100 b.i.d. 18. Lexapro 20 mg daily. 19. Xanax 0.5 at bedtime. 20. Tylenol. 21. Colace. 22. Milk of magnesia. ASSESSMENT AND PLAN: This is an unfortunate 87-year-old [place] male with a history of atrial fibri llation, hypertension, urinary retention, low back pain, depression, who presented with worsening marya rtness of breath, was found to have fevers and pneumonia. Initially, a presentation of acute respira tory distress syndrome. 1. Respiratory: Continue weaning off the ventilator. Anxiety is the main issue. I would suggest j ust extubation and close supportive care. Status post treated for pneumonia. Chest x-ray is much im proved. 2. Cardiovascular: Continue clonidine. Continue deep venous thrombosis prophylaxis with heparin. 3. Infectious disease: The patient with an oral/nasal fold rash. Will add valacyclovir for possibl e cold sore. Add steroidal cream. Continue supportive care and wound care. 4. Neurological: Remains on propofol 20 mcg and anxiolytics p.r.n. 5. Acute renal failure due partly due to diuretics administration. May consider gentle hydration an d close monitoring. 6. Dysphagia. Continue nasogastric tube feeding. 7. The patient remains FULL CODE. 8. Depression, on Lexapro. 9. Hopefully, we can extubate him and avoid a tracheostomy placement. 10. Continue Prevacid for gastrointestinal prophylaxis. 11. Infectious Disease. The patient with low-grade fever. Panculture the patient again and monitor . Monitor white blood count. Infectious disease is on board. We will follow. Case discussed with nephew at bedside. Dictated By: SERGIO CERVANTES/NEHAL Conf#: [id number] DID#: [id number] CC: SERGIO TREVINO MD;*EndCC*
[2018-09-12] MEDS: ALPRAZOLAM 0.5 MG TAB PO SCH (21:00)
[2018-09-13] VITALS (54 sets, daily range): BP systolic 98–150; BP diastolic 42–68; PULSE 52–77; RESP 6–42
[2018-09-13] MEDS: DEXMEDETOMIDINE HCL 200 MCG in SOD CHLORIDE 0.9% 48 ML IV SCH ×2 (01:31→06:56)
[2018-09-13] MEDS: VANCOMYCIN HCL 250 MG/5ML POSYG PO SCH ×4 (01:31→17:18)
[2018-09-13] MEDS: metroNIDAZOLE 500 MG TAB PO SCH ×3 (05:28→21:35)
[2018-09-13] MEDS: LANSOPRAZOLE 30 MG CAP NGT SCH (05:29)
[2018-09-13] MEDS: DOXYCYCLINE 100 MG in SOD CHLORIDE 0.9% 250 ML IVPB SCH (08:34)
[2018-09-13] MEDS: LACTOBACILLUS RHAMNOSUS CAP PO SCH ×2 (08:34→20:13)
[2018-09-13] MEDS: ASCORBIC ACID 500 MG TAB NGT SCH (08:34)
[2018-09-13] MEDS: ZINC SULFATE 220 MG CAP PO SCH (08:34)
[2018-09-13] MEDS: valACYclovir 500 MG TAB PO SCH ×2 (08:34→20:13)
[2018-09-13] MEDS: MULTIVITAMINS 30 ML CUP NGT SCH (08:34)
[2018-09-13] MEDS: FOLIC ACID 1 MG TAB NGT SCH (08:34)
[2018-09-13] MEDS: HEPARIN 5,000 UNIT/1 ML VIAL SC SCH ×2 (08:37→20:21)
[2018-09-13] MEDS: TRIAMCINOLONE ACET 0.1% 15 GM CR TOP SCH ×2 (08:38→20:14)
[2018-09-13] MEDS: BALSAM PERU/CASTOR OIL 60 GM TUBE TOP SCH ×2 (08:38→20:14)
[2018-09-13] MEDS: PETROLATUM 5 GM OINT TOP SCH ×2 (08:38→20:14)
[2018-09-13] MEDS: DOCUSATE SODIUM 100 MG CAP PO SCH ×2 (08:43→20:02)
[2018-09-13] MEDS: ESCITALOPRAM 10 MG TAB PO SCH (08:44)
--- NOTE | 2018-09-13 12:15 | CONS ---
Assessment/Plan Assessment/Plan Hospital Course (Demo Recall) 1. Nonoliguric acute kidney injury on top of chronic kidney disease with unknown baseline creatinine. Etiology of acute kidney injury is secondary to hemodynamics, possible tubular injury, stabilizing continue current treatment plan, supportive care, renally dose all medications. We will continue to monitor. 2. Hypernatremia. increase free water flushes via TF 3. Anemia. Continue to monitor hemoglobin and hematocrit levels. 4. Mineral bone disorder: added sevelamer. monitor calcium and phosphorus levels. 5. Ventilator-dependent respiratory failure. Vent settings have been rev iewed. Continue to monitor. Follow up with pulmonary. 6. Sepsis secondary to pneumonia. Continue current antibiotic therapy. 7. Acute encephalopathy, etiology is toxic metabolic. Continue to monitor. 8. History of diastolic heart failure. I's and O's are being monitored closely. We will give intermittent diuretic therapy as needed. 9. Diarrhea. Continue empiric Flagyl. 10. Benign prostatic hypertrophy. Continue medical management. Consultation Date/Type/Reason Admit Date/Time Aug 29, 2018 at 05:45 Initial Consult Date 09/07/18 Requesting Provider: SERGIO TRVEINO MD Date/Time of Note DATE: 09/13/18 TIME: 12:13 24 HR Interval Summary Free Text/Dictation on tf remains on the vent d.w rn gen nad cv rrr pulm coarse bs abd soft, nd, nt +bs ext: no edema Exam/Review of Systems Exam Vitals Vital Signs Date Temp Pulse Resp B/P (MAP) Pulse Ox O2 O2 Flow FiO2 Time Delivery Rate 09/13/18 54 23 100 30 11:00 09/13/18 112/53 09:00 (72) 09/13/18 97.8 Mechanical 08:00 Ventilator Intake and Output 09/12/18 09/12/18 09/13/18 1515:00 23:00 07:00 IntakeIntake Total 870.259 ml 580.296 ml 551.424 ml OutputOutput Total 400 ml 1020 ml 365 ml BalanceBalance 470.259 ml -439.704 ml 186.424 ml Results Result Diagram: 09/13/18 0450 09/13/18 0450 Results 24hrs Laboratory Tests Test 09/13/18 04:50 09/13/18 05:00 White Blood Count 14.9 #H Red Blood Count 3.18 L Hemoglobin 9.8 L Hematocrit 30.4 L Mean Corpuscular Volume 95.6 Mean Corpuscular Hemoglobin 30.8 Mean Corpuscular Hemoglobin Concent 32.2 Red Cell Distribution Width 14.8 H Platelet Count 117 L Mean Platelet Volume 12.8 H Immature Granulocytes % 1.000 H Neutrophils % 87.3 H Lymphocytes % 8.3 L Monocytes % 2.8 Eosinophils % 0.5 Basophils % 0.1 Nucleated Red Blood Cells % 0.0 Immature Granulocytes # 0.150 H Neutrophils # 13.0 H Lymphocytes # 1.2 Monocytes # 0.4 Eosinophils # 0.1 Basophils # 0.0 Nucleated Red Blood Cells # 0.0 Sodium Level 149 H Potassium Level 4.0 Chloride Level 122 H Carbon Dioxide Level 22 Anion Gap 5 Blood Urea Nitrogen 108 H Creatinine 2.39 H Est Glomerular Filtrat Rate mL/min Glucose Level 116 Lactic Acid Level 1.3 Calcium Level 7.2 L Blood Gas Specimen Source Blood arterial Arterial Blood Date Drawn 09/13/2018 5:00:16 AM Arterial Blood pH (Temp corrected) 7.393 Arterial Blood pCO2 (Temp correct) 31.5 L Arterial Blood pO2 (Temp corrected) 98.6 H Arterial Blood HCO3 18.8 L Arterial Blood Base Excess -5.3 L Arterial Blood Oxygen Saturation 96.4 Domenico Test ACCEPTAB Arterial Blood Gas Puncture Site Right Radial Arterial Blood Carboxyhemoglobin 0.3 Arterial Blood Methemoglobin 0 Blood Gas A-a O2 Differential 78.3 H Oxyhemoglobin Percent 96.1 Blood Gas Temperature 37.0 Blood Gas Respiration Rate 26.0 Blood Gas Actual Respiration Rate 26 Blood Gas Modality VENT - AC FiO2 30.0 Blood Gas Tidal Volume 500.0 Blood Gas Low PEEP Setting 5.0 Blood Gas Notified Whom Blood Gas Notified Time 09/13/2018 5:26:50 AM Medications Medication Current Medications IV Flush (NS 3 ml) 3 ml PER PROTOCOL IV ; Start 08/29/18 at 06:00 Ondansetron HCl (Zofran Inj) 4 mg Q6H PRN IV NAUSEA/VOMITING Last administered on 08/31/18at 05:02; Admin Dose 4 MG; Start 08/29/18 at 06:00 Acetaminophen (Tylenol Tab) 650 mg Q6H PRN PO .PAIN 1-3 OR TEMP; Start 08/29/18 at 06:00 Docusate Sodium (Colace) 100 mg Q12H PRN PO .CONSTIPATION Last administered on 08/30/18 21:37; Admin Dose 100 MG; Start 08/29/18 at 06:00 Magnesium Hydroxide (Milk Of Mag) 30 ml DAILY PRN PO .CONSTIPATION Last administered on 09/02/18 05:16; Admin Dose 30 ML; Start 08/29/18 at 06:00 Alprazolam (Xanax) 0.5 mg QHS PO Last administered on 09/12/18 21:00; Admin Dose 0.5 MG; Start 08/29/18 at 21:00 Escitalopram Oxalate (Lexapro) 20 mg DAILY PO Last administered on 09/13/18 08:44; Admin Dose 20 MG; Start 08/30/18 at 09:00 Docusate Sodium (Colace) 100 mg BID PO Last administered on 09/10/18 21:24; Admin Dose 100 MG; Start 08/31/18 at 13:30 Lorazepam (Ativan) 0.5 mg Q6H PRN PO ANXIETY; Start 09/02/18 at 13:00 Bisacodyl (Dulcolax Supp) 10 mg DAILY PRN [place] CONSTIPATION; Start 09/03/18 at 12:00 Heparin Sodium (Porcine) (Heparin (5000 Units/1ml)) 5,000 unit BID SC Last administered on 09/13/18 08:37; Admin Dose 5,000 UNIT; Start 09/03/18 at 14:00 Hydralazine HCl (Apresoline) 10 mg Q3 PRN IV ELEVATED SYSTOLIC BP Last administered on 09/05/18 19:48; Admin Dose 10 MG; Start 09/03/18 at 18:00 Albuterol/ Ipratropium (Duoneb) 3 ml Q2H RESP THERAPY PRN HHN SHORTNESS OF BREATH; Start 09/03/18 at 20:00 Lorazepam (Ativan) 1 mg Q6H PRN IV anxiety Last administered on 09/06/18 00:00; Admin Dose 1 MG; Start 09/05/18 at 09:00 Clonidine HCl (Catapres-Tts 1 Patch) 1 patch Q7D TRANSDERM Last administered on 09/12/18 13:19; Admin Dose 1 PATCH; Start 09/05/18 at 13:30 Propofol 100 ml @ 2.509 mls/ hr Q12H IV Last administered on 09/12/18 13:19; Admin Dose 10.037 MLS/HR; Start 09/06/18 at 09:30 Lansoprazole (Prevacid) 30 mg DAILY@06 NGT Last administered on 09/13/18 05:29; Admin Dose 30 MG; Start 09/07/18 at 06:00 Doxycycline Hyclate 100 mg/ Sodium Chloride 250 ml @ 250 mls/hr Q12 IVPB Last administered on 09/13/18 08:34; Admin Dose 250 MLS/HR; Start 09/06/18 at 21:00 Fentanyl 100 ml @ 2.5 mls/hr TITRATE IV Last administered on 09/07/18 09:19; Admin Dose 2.5 MLS/HR; Start 09/07/18 at 09:30 Fluconazole/ Sodium Chloride 50 ml @ 50 mls/hr Q24H IVPB Last administered on 09/12/18 11:22; Admin Dose 50 MLS/HR; Start 09/07/18 at 11:30 Multivitamins (Multivitamin) 30 ml DAILY NGT Last administered on 09/13/18 08:34; Admin Dose 30 ML; Start 09/07/18 at 14:30 Zinc Sulfate (Zinc Sulfate) 220 mg DAILY PO Last administered on 09/13/18 08:34; Admin Dose 220 MG; Start 09/07/18 at 14:30 Ascorbic Acid (Vitamin C) 500 mg DAILY NGT Last administered on 09/13/18 08:34; Admin Dose 500 MG; Start 09/07/18 at 14:30 Folic Acid (Folic Acid) 1 mg DAILY NGT Last administered on 09/13/18 08:34; Admin Dose 1 MG; Start 09/07/18 at 14:30 Petrolatum (Vaseline) APPLY TO MULTIPLE SC... BID TOP Last administered on 09/13/18 08:38; Admin Dose 1 EA; Start 09/08/18 at 09:00 Metronidazole (Flagyl) 500 mg Q8 PO Last administered on 09/13/18 05:28; Admin Dose 500 MG; Start 09/08/18 at 14:00 IV Flush (NS 10 ml) 10 ml PRN PRN IV FLUSH LINE; Start 09/09/18 at 11:30 Vancomycin HCl (Vancomycin Oral Syringe) 250 mg Q6 PO Last administered on 09/13/18 06:55; Admin Dose 250 MG; Start 09/10/18 at 12:00 Dexmedetomidine HCl 200 mcg/ Sodium Chloride 50 ml @ 4.18 mls/hr TITRATE IV Last administered on 09/13/18 06:56; Admin Dose 8.36 MLS/HR; Start 09/12/18 at 14:00 Valacyclovir HCl (Valtrex) 500 mg BID PO Last administered on 09/13/18 08:34; Admin Dose 500 MG; Start 09/12/18 at 14:00 Triamcinolone Acetonide (Kenalog 0.1% Cr) 1 applic BID TOP Last administered on 09/13/18 08:38; Admin Dose 1 APPLIC; Start 09/12/18 at 14:00 Lactobacillus Acidophilus/ Rhamnosus (Culturelle) 1 cap BID PO Last adm inistered on 09/13/18 08:34; Admin Dose 1 CAP; Start 09/12/18 at 14:30 VLADIMIR ANN MD Sep 13, 2018 12:15
--- NOTE | 2018-09-13 12:43 | CONS ---
Consult Date/Type/Reason Admit Date/Time Aug 29, 2018 at 05:45 Initial Consult Date 09/07/18 Type of Consultation: Pulm/CCM Requesting Provider: SERGIO TREVINO MD Date/Time of Note DATE: 09/13/18 TIME: 12:39 Subjective No events. Failed weaning on CPAP/PS. Objective Vitals Vital Signs Date Temp Pulse Resp B/P (MAP) Pulse Ox O2 O2 Flow FiO2 Time Delivery Rate 09/13/18 30 12:23 09/13/18 54 23 100 11:00 09/13/18 112/53 09:00 (72) 09/13/18 97.8 Mechanical 08:00 Ventilator Intake and Output 09/12/18 09/12/18 09/13/18 1515:00 23:00 07:00 IntakeIntake Total 870.259 ml 580.296 ml 551.424 ml OutputOutput Total 400 ml 1020 ml 365 ml BalanceBalance 470.259 ml -439.704 ml 186.424 ml Exam HEENT: Neck supple; no JVD; no LAD; + ET tube CVS: RRR, S1 and S2 CHEST: Coarse BS b/l ABD: Soft, NT, + BS EXT: No c/c; + edema NEURO: Alert; moves all extremities Results/Medications Result Diagram: 09/13/1844909/13/18449 Results 24 hrs Laboratory Tests Test 09/13/18 04:50 09/13/18 05:00 White Blood Count 14.9 #H Red Blood Count 3.18 L Hemoglobin 9.8 L Hematocrit 30.4 L Mean Corpuscular Volume 95.6 Mean Corpuscular Hemoglobin 30.8 Mean Corpuscular Hemoglobin Concent 32.2 Red Cell Distribution Width 14.8 H Platelet Count 117 L Mean Platelet Volume 12.8 H Immature Granulocytes % 1.000 H Neutrophils % 87.3 H Lymphocytes % 8.3 L Monocytes % 2.8 Eosinophils % 0.5 Basophils % 0.1 Nucleated Red Blood Cells % 0.0 Immature Granulocytes # 0.150 H Neutrophils # 13.0 H Lymphocytes # 1.2 Monocytes # 0.4 Eosinophils # 0.1 Basophils # 0.0 Nucleated Red Blood Cells # 0.0 Sodium Level 149 H Potassium Level 4.0 Chloride Level 122 H Carbon Dioxide Level 22 Anion Gap 5 Blood Urea Nitrogen 108 H Creatinine 2.39 H Est Glomerular Filtrat Rate mL/min Glucose Level 116 Lactic Acid Level 1.3 Calcium Level 7.2 L Blood Gas Specimen Source Blood arterial Arterial Blood Date Drawn 09/13/2018 5:00:16 AM Arterial Blood pH (Temp corrected) 7.393 Arterial Blood pCO2 (Temp correct) 31.5 L Arterial Blood pO2 (Temp corrected) 98.6 H Arterial Blood HCO3 18.8 L Arterial Blood Base Excess -5.3 L Arterial Blood Oxygen Saturation 96.4 Domenico Test ACCEPTAB Arterial Blood Gas Puncture Site Right Radial Arterial Blood Carboxyhemoglobin 0.3 Arterial Blood Methemoglobin 0 Blood Gas A-a O2 Differential 78.3 H Oxyhemoglobin Percent 96.1 Blood Gas Temperature 37.0 Blood Gas Respiration Rate 26.0 Blood Gas Actual Respiration Rate 26 Blood Gas Modality VENT - AC FiO2 30.0 Blood Gas Tidal Volume 500.0 Blood Gas Low PEEP Setting 5.0 Blood Gas Notified Whom MH Blood Gas Notified Time 09/13/2018 5:26:50 AM Home Meds Reported Medications Losartan Potassium* (Losartan Potassium*) 50 Mg Tablet, 50 MG PO DAILY, TAB 08/29/18 Simvastatin (Simvastatin) 20 Mg Tablet, 20 MG PO QHS for 90 Days, #90 08/29/18 Furosemide* (Furosemide*) 40 Mg Tablet, 40 MG PO DAILY for 90 Days, #90 08/29/18 Potassium Chloride (K-Tab ER) 8 Meq Tablet.er, 8 MEQ PO BID for 90 Days, #180 08/29/18 Escitalopram Oxalate* (Escitalopram Oxalate*) 10 Mg Tablet, 20 MG PO DAILY for 90 Days, #90 08/29/18 Hydrocodone Bit-Acetaminophen (Hydrocodone Bit-APAP) 5-325MG Tablet, 1 TAB PO DAILY 08/29/18 Dexlansoprazole (Dexilant) 60 Mg , 60 MG PO DAILY for 90 Days, #90 08/29/18 Amiodarone Hcl* (Amiodarone Hcl*) 200 Mg Tablet, 200 MG PO DAILY for 90 Days, #90 08/29/18 Alprazolam* (Alprazolam*) 0.5 Mg Tablet, 0.5 MG PO QHS for 30 Days, #30 08/29/18 Medications Current Medications IV Flush (NS 3 ml) 3 ml PER PROTOCOL IV ; Start 08/29/18 at 06:00 Ondansetron HCl (Zofran Inj) 4 mg Q6H PRN IV NAUSEA/VOMITING Last administered on 08/31/18 05:02; Admin Dose 4 MG; Start 08/29/18 at 06:00 Acetaminophen (Tylenol Tab) 650 mg Q6H PRN PO .PAIN 1-3 OR TEMP; Start 08/29/18 at 06:00 Docusate Sodium (Colace) 100 mg Q12H PRN PO .CONSTIPATION Last administered on 08/30/18 21:37; Admin Dose 100 MG; Start 08/29/18 at 06:00 Magnesium Hydroxide (Milk Of Mag) 30 ml DAILY PRN PO .CONSTIPATION Last administered on 09/02/18 05:16; Admin Dose 30 ML; Start 08/29/18 at 06:00 Alprazolam (Xanax) 0.5 mg QHS PO Last administered on 09/12/18 21:00; Admin Dose 0.5 MG; Start 08/29/18 at 21:00 Escitalopram Oxalate (Lexapro) 20 mg DAILY PO Last administered on 09/13/18 08:44; Admin Dose 20 MG; Start 08/30/18 at 09:00 Docusate Sodium (Colace) 100 mg BID PO Last administered on 09/10/18 21:24; Admin Dose 100 MG; Start 08/31/18 at 13:30 Lorazepam (Ativan) 0.5 mg Q6H PRN PO ANXIETY; Start 09/02/18 at 13:00 Bisacodyl (Dulcolax Supp) 10 mg DAILY PRN [place] CONSTIPATION; Start 09/03/18 at 12:00 Heparin Sodium (Porcine) (Heparin (5000 Units/1ml)) 5,000 unit BID SC Last administered on 09/13/18 08:37; Admin Dose 5,000 UNIT; Start 09/03/18 at 14:00 Hydralazine HCl (Apresoline) 10 mg Q3 PRN IV ELEVATED SYSTOLIC BP Last administered on 09/05/18 19:48; Admin Dose 10 MG; Start 09/03/18 at 18:00 Albuterol/ Ipratropium (Duoneb) 3 ml Q2H RESP THERAPY PRN HHN SHORTNESS OF BREATH; Start 09/03/18 at 20:00 Lorazepam (Ativan) 1 mg Q6H PRN IV anxiety Last administered on 09/06/18 00:00; Admin Dose 1 MG; Start 09/05/18 at 09:00 Clonidine HCl (Catapres-Tts 1 Patch) 1 patch Q7D TRANSDERM Last administered on 09/12/18 13:19; Admin Dose 1 PATCH; Start 09/05/18 at 13:30 Propofol 100 ml @ 2.509 mls/ hr Q12H IV Last administered on 09/12/18 13:19; Admin Dose 10.037 MLS/HR; Start 09/06/18 at 09:30 Lansoprazole (Prevacid) 30 mg DAILY@06 NGT Last administered on 09/13/18 05:29; Admin Dose 30 MG; Start 09/07/18 at 06:00 Doxycycline Hyclate 100 mg/ Sodium Chloride 250 ml @ 250 mls/hr Q12 IVPB Last administered on 09/13/18 08:34; Admin Dose 250 MLS/HR; Start 09/06/18 at 21:00 Fentanyl 100 ml @ 2.5 mls/hr TITRATE IV Last administered on 09/07/18 09:19; Admin Dose 2.5 MLS/HR; Start 09/07/18 at 09:30 Fluconazole/ Sodium Chloride 50 ml @ 50 mls/hr Q24H IVPB Last administered on 09/12/18 11:22; Admin Dose 50 MLS/HR; Start 09/07/18 at 11:30 Multivitamins (Multivitamin) 30 ml DAILY NGT Last administered on 09/13/18 08:34; Admin Dose 30 ML; Start 09/07/18 at 14:30 Zinc Sulfate (Zinc Sulfate) 220 mg DAILY PO Last administered on 09/13/18 08:34; Admin Dose 220 MG; Start 09/07/18 at 14:30 Ascorbic Acid (Vitamin C) 500 mg DAILY NGT Last administered on 09/13/18 08:34; Admin Dose 500 MG; Start 09/07/18 at 14:30 Folic Acid (Folic Acid) 1 mg DAILY NGT Last administered on 09/13/18 08:34; Admin Dose 1 MG; Start 09/07/18 at 14:30 Petrolatum (Vaseline) APPLY TO MULTIPLE SC... BID TOP Last administered on 6/16/19at 08:38; Admin Dose 1 EA; Start 09/08/18 at 09:00 Metronidazole (Flagyl) 500 mg Q8 PO Last administered on 09/13/18 05:28; Admin Dose 500 MG; Start 09/08/18 at 14:00 IV Flush (NS 10 ml) 10 ml PRN PRN IV FLUSH LINE; Start 09/09/18 at 11:30 Vancomycin HCl (Vancomycin Oral Syringe) 250 mg Q6 PO Last administered on 09/13/18 06:55; Admin Dose 250 MG; Start 09/10/18 at 12:00 Dexmedetomidine HCl 200 mcg/ Sodium Chloride 50 ml @ 4.18 mls/hr TITRATE IV Last administered on 09/13/18 06:56; Admin Dose 8.36 MLS/HR; Start 09/12/18 at 14:00 Valacyclovir HCl (Valtrex) 500 mg BID PO Last administered on 09/13/18 08:34; Admin Dose 500 MG; Start 09/12/18 at 14:00 Triamcinolone Acetonide (Kenalog 0.1% Cr) 1 applic BID TOP Last administered on 09/13/18 08:38; Admin Dose 1 APPLIC; Start 09/12/18 at 14:00 Lactobacillus Acidophilus/ Rhamnosus (Culturelle) 1 cap BID PO Last administered on 09/13/18 08:34; Admin Dose 1 CAP; Start 09/12/18 at 14:30 Sevelamer Carbonate (Renvela) 0.8 gm Q8H NGT ; Start 09/13/18 at 12:30 Assessment/Plan Assessment/Plan (Daily) IMP: 1. Respiratory Failure---hypoxemic/hypercapnic 2. Multifocal pneumonia 3. Pulmonary hypertension 4. ARF 5. Hypertension 6. Urinary retention status post surgery 7. Leukocytosis RECS: 1. CPAP with PS in am 2. Intravascular volume status remains unclear to me though he has been persistently positive 3. Abx per ID 4. Avoid benzo's 5. Follow renal function 6. Continue precedex gtt 7. Lasix IV 40 min cc time MICAELA AGUILERA MD Sep 13, 2018 12:43
[2018-09-13] MEDS: FLUCONAZOLE 100 MG/50 ML (PMX) 50 ML IVPB SCH (12:52)
--- NOTE | 2018-09-13 12:58 | CONS ---
Assessment/Plan Assessment/Plan Hospital Course (Demo Recall) Patient is awake, comfortable on CPAP, no fevers overnight family at bedside. T-max 99.7. WBC 14.9 H&H 9.8 and 30.4 platelets 117 neutrophils 87.3 BUN 108 creatinine 2.39 Microbiology: Repeat blood and urine culture negative Chest x-ray this morning revealed interval increase in pulmonary vascular congestion Antimicrobials: Flagyl, oral vancomycin, fluconazole,Valtrex, doxycycline Microbiology: Sputum culture gr 1ew Leah albicans Indwelling's: Endotracheal tube NG tube Mcgowan catheter Physical examination: Well-developed well-nourished elderly man who is awake in no distress. Head atraumatic normocephalic sclera nonicteric vehicle mucosa dry neck is supple chest rise symmetrical breath sounds with bilateral rhonchi. Heart: S1-S2. Abdomen soft bowel sounds present. Assessment: 1. Acute hypoxemic respiratory failure 2. Pneumonia/fluid overload 3. Mild CHF 4. Bradycardia 5. Acute kidney injury 6. Diarrhea 7. Leukocytosis, likely steroid-induced versus leukemoid reaction, resolving 8. Mouth lesions, on empiric Valtrex Plan: Continues to improve, continue weaning trials per pulmonary Consultation Date/Type/Reason Admit Date/Time Aug 29, 2018 at 05:45 Initial Consult Date 08/30/18 Type of Consult id Requesting Provider: SERGIO TREVINO MD Date/Time of Note DATE: 09/13/18 TIME: 12:57 Exam/Review of Systems Exam Vitals Vital Signs Date Temp Pulse Resp B/P (MAP) Pulse Ox O2 O2 Flow FiO2 Time Delivery Rate 09/13/18 30 12:23 09/13/18 58 33 140/58 98 Mechanical 12:00 (85) Ventilator 09/13/18 97.8 08:00 Intake and Output 09/12/18 09/12/18 09/13/18 1515:00 23:00 07:00 IntakeIntake Total 870.259 ml 580.296 ml 551.424 ml OutputOutput Total 400 ml 1020 ml 365 ml BalanceBalance 470.259 ml -439.704 ml 186.424 ml Results Result Diagram: 09/13/18 0450 09/13/18 0450 Results 24hrs Laboratory Tests Test 09/13/18 04:50 09/13/18 05:00 White Blood Count 14.9 #H Red Blood Count 3.18 L Hemoglobin 9.8 L Hematocrit 30.4 L Mean Corpuscular Volume 95.6 Mean Corpuscular Hemoglobin 30.8 Mean Corpuscular Hemoglobin Concent 32.2 Red Cell Distribution Width 14.8 H Platelet Count 117 L Mean Platelet Volume 12.8 H Immature Granulocytes % 1.000 H Neutrophils % 87.3 H Lymphocytes % 8.3 L Monocytes % 2.8 Eosinophils % 0.5 Basophils % 0.1 Nucleated Red Blood Cells % 0.0 Immature Granulocytes # 0.150 H Neutrophils # 13.0 H Lymphocytes # 1.2 Monocytes # 0.4 Eosinophils # 0.1 Basophils # 0.0 Nucleated Red Blood Cells # 0.0 Sodium Level 149 H Potassium Level 4.0 Chloride Level 122 H Carbon Dioxide Level 22 Anion Gap 5 Blood Urea Nitrogen 108 H Creatinine 2.39 H Est Glomerular Filtrat Rate mL/min Glucose Level 116 Lactic Acid Level 1.3 Calcium Level 7.2 L Blood Gas Specimen Source Blood arterial Arterial Blood Date Drawn 09/13/2018 5:00:16 AM Arterial Blood pH (Temp corrected) 7.393 Arterial Blood pCO2 (Temp correct) 31.5 L Arterial Blood pO2 (Temp corrected) 98.6 H Arterial Blood HCO3 18.8 L Arterial Blood Base Excess -5.3 L Arterial Blood Oxygen Saturation 96.4 Domenico Test ACCEPTAB Arterial Blood Gas Puncture Site Right Radial Arterial Blood Carboxyhemoglobin 0.3 Arterial Blood Methemoglobin 0 Blood Gas A-a O2 Differential 78.3 H Oxyhemoglobin Percent 96.1 Blood Gas Temperature 37.0 Blood Gas Respiration Rate 26.0 Blood Gas Actual Respiration Rate 26 Blood Gas Modality VENT - AC FiO2 30.0 Blood Gas Tidal Volume 500.0 Blood Gas Low PEEP Setting 5.0 Blood Gas Notified Whom Blood Gas Notified Time 09/13/2018 5:26:50 AM Medications Medication Current Medications IV Flush (NS 3 ml) 3 ml PER PROTOCOL IV ; Start 08/29/18 at 06:00 Ondansetron HCl (Zofran Inj) 4 mg Q6H PRN IV NAUSEA/VOMITING Last administered on 08/31/18at 05:02; Admin Dose 4 MG; Start 08/29/18 at 06:00 Acetaminophen (Tylenol Tab) 650 mg Q6H PRN PO .PAIN 1-3 OR TEMP; Start 08/29/18 at 06:00 Docusate Sodium (Colace) 100 mg Q12H PRN PO .CONSTIPATION Last administered on 08/30/18 21:37; Admin Dose 100 MG; Start 08/29/18 at 06:00 Magnesium Hydroxide (Milk Of Mag) 30 ml DAILY PRN PO .CONSTIPATION Last administered on 09/02/18 05:16; Admin Dose 30 ML; Start 08/29/18 at 06:00 Alprazolam (Xanax) 0.5 mg QHS PO Last administered on 09/12/18 21:00; Admin Dose 0.5 MG; Start 08/29/18 at 21:00 Escitalopram Oxalate (Lexapro) 20 mg DAILY PO Last administered on 09/13/18 08:44; Admin Dose 20 MG; Start 08/30/18 at 09:00 Docusate Sodium (Colace) 100 mg BID PO Last administered on 09/10/18 21:24; Admin Dose 100 MG; Start 08/31/18 at 13:30 Lorazepam (Ativan) 0.5 mg Q6H PRN PO ANXIETY; Start 09/02/18 at 13:00 Bisacodyl (Dulcolax Supp) 10 mg DAILY PRN [place] CONSTIPATION; Start 09/03/18 at 12:00 Heparin Sodium (Porcine) (Heparin (5000 Units/1ml)) 5,000 unit BID SC Last administered on 09/13/18 08:37; Admin Dose 5,000 UNIT; Start 09/03/18 at 14:00 Hydralazine HCl (Apresoline) 10 mg Q3 PRN IV ELEVATED SYSTOLIC BP Last administered on 09/05/18 19:48; Admin Dose 10 MG; Start 09/03/18 at 18:00 Albuterol/ Ipratropium (Duoneb) 3 ml Q2H RESP THERAPY PRN HHN SHORTNESS OF BREATH; Start 09/03/18 at 20:00 Lorazepam (Ativan) 1 mg Q6H PRN IV anxiety Last administered on 09/06/18 00:00; Admin Dose 1 MG; Start 09/05/18 at 09:00 Clonidine HCl (Catapres-Tts 1 Patch) 1 patch Q7D TRANSDERM Last administered on 09/12/18 13:19; Admin Dose 1 PATCH; Start 09/05/18 at 13:30 Propofol 100 ml @ 2.509 mls/ hr Q12H IV Last administered on 09/12/18 13:19; Admin Dose 10.037 MLS/HR; Start 09/06/18 at 09:30 Lansoprazole (Prevacid) 30 mg DAILY@06 NGT Last administered on 09/13/18 05:29; Admin Dose 30 MG; Start 09/07/18 at 06:00 Doxycycline Hyclate 100 mg/ Sodium Chloride 250 ml @ 250 mls/hr Q12 IVPB Last administered on 09/13/18 08:34; Admin Dose 250 MLS/HR; Start 09/06/18 at 21:00 Fentanyl 100 ml @ 2.5 mls/hr TITRATE IV Last administered on 09/07/18 09:19; Admin Dose 2.5 MLS/HR; Start 09/07/18 at 09:30 Fluconazole/ Sodium Chloride 50 ml @ 50 mls/hr Q24H IVPB Last administered on 09/13/18 12:52; Admin Dose 50 MLS/HR; Start 09/07/18 at 11:30 Multivitamins (Multivitamin) 30 ml DAILY NGT Last administered on 09/13/18 08:34; Admin Dose 30 ML; Start 09/07/18 at 14:30 Zinc Sulfate (Zinc Sulfate) 220 mg DAILY PO Last administered on 09/13/18 08:34; Admin Dose 220 MG; Start 09/07/18 at 14:30 Ascorbic Acid (Vitamin C) 500 mg DAILY NGT Last administered on 09/13/18 08:34; Admin Dose 500 MG; Start 09/07/18 at 14:30 Folic Acid (Folic Acid) 1 mg DAILY NGT Last administered on 09/13/18 08:34; Admin Dose 1 MG; Start 09/07/18 at 14:30 Petrolatum (Vaseline) APPLY TO MULTIPLE SC... BID TOP Last administered on 09/13/18 08:38; Admin Dose 1 EA; Start 09/08/18 at 09:00 Metronidazole (Flagyl) 500 mg Q8 PO Last administered on 09/13/18 05:28; Admin Dose 500 MG; Start 09/08/18 at 14:00 IV Flush (NS 10 ml) 10 ml PRN PRN IV FLUSH LINE; Start 09/09/18 at 11:30 Vancomycin HCl (Vancomycin Oral Syringe) 250 mg Q6 PO Last administered on 09/13/18 06:55; Admin Dose 250 MG; Start 09/10/18 at 12:00 Dexmedetomidine HCl 200 mcg/ Sodium Chloride 50 ml @ 4.18 mls/hr TITRATE IV Last administered on 09/13/18 06:56; Admin Dose 8.36 MLS/HR; Start 09/12/18 at 14:00 Valacyclovir HCl (Valtrex) 500 mg BID PO Last administered on 09/13/18 08:34; Admin Dose 500 MG; Start 09/12/18 at 14:00 Triamcinolone Acetonide (Kenalog 0.1% Cr) 1 applic BID TOP Last administered on 09/13/18 08:38; Admin Dose 1 APPLIC; Start 09/12/18 at 14:00 Lactobacillus Acidophilus/ Rhamnosus (Culturelle) 1 cap BID PO Last administered on 09/13/18 08:34; Admin Dose 1 CAP; Start 09/12/18 at 14:30 Sevelamer Carbonate (Renvela) 0.8 gm Q8H NGT ; Start 09/13/18 at 12:30 Furosemide (Lasix) 40 mg BID DIURETICS IV ; Start 09/13/18 at 13:00; Stop 09/13/18 at 18:01 TAYLOR RIZZO NP Sep 13, 2018 12:58
[2018-09-13] MEDS: PROPOFOL 100 ML IV SCH ×2 (13:10→22:44)
[2018-09-13] MEDS: SEVELAMER CARBONATE 0.8 GM PKT NGT SCH ×2 (13:13→20:14)
[2018-09-13] MEDS: FUROSEMIDE 40 MG INJ IV SCH ×2 (13:13→17:18)
[2018-09-13] MEDS ORDERED: VANCOMYCIN IV PER PHARMACY XX SCH (19:00)
[2018-09-13] MEDS: ALPRAZOLAM 0.5 MG TAB PO SCH (20:13)
[2018-09-13] MEDS ORDERED: VANCOMYCIN HCL 1.5 GM in SOD CHLORIDE 0.9% 250 ML IVPB SCH (21:00)
[2018-09-13] MEDS ORDERED: VANCOMYCIN HCL 1.5 GM in SOD CHLORIDE 0.9% 250 ML IVPB ONE (21:00)
[2018-09-14] VITALS (87 sets, daily range): BP systolic 75–133; BP diastolic 44–67; PULSE 44–69; RESP 18–40
[2018-09-14] MEDS: VANCOMYCIN HCL 250 MG/5ML POSYG PO SCH ×4 (00:47→18:13)
[2018-09-14] MEDS: SEVELAMER CARBONATE 0.8 GM PKT NGT SCH ×3 (05:20→20:43)
[2018-09-14] MEDS: LANSOPRAZOLE 30 MG CAP NGT SCH (05:20)
[2018-09-14] MEDS: metroNIDAZOLE 500 MG TAB PO SCH ×3 (05:20→22:35)
[2018-09-14] MEDS: PROPOFOL 100 ML IV SCH (06:57)
--- NOTE | 2018-09-14 07:28 | PN ---
DATE: 09/13/2018 SUBJECTIVE: The patient seen, case discussed with her and Dr. Medina as patient did not do great o n CPAP trials. Case discussed with the nephew at bedside. PHYSICAL EXAMINATION: VITAL SIGNS: T-max is 99.7 this morning. Last temperature 97.7, pulse 64, respirations 20s to 30s, blood pressure 150/52, saturation 98% on 2 liters and 30% FIO2 on AC mode. His ABG today shows a pH of 7.39, pCO2 of 32, bicarbonate of 19, saturation 96%, this was on AC 26, tidal volume 500, PEEP of 5 with FIO2 of 30%. GENERAL: The patient is sedated, some nasal oral ulcers. CARDIOVASCULAR: S1, S2. LUNGS: Mild diffuse rhonchi bilaterally. ABDOMEN: Soft, nontender. EXTREMITIES: Pedal edema and hand edema is noted +2. Otherwise, no significant edema in the proxima l extremities. LABORATORY DATA: White count improved to 14.9, hemoglobin 9.8, hematocrit 30, platelet count of 117, trending down, neutrophils 87% ____. Chemistry: Sodium 149, potassium 4.0, chloride 122, bicarbona te 22, BUN is 108, creatinine 2.39, glucose 116. Lactic acid is normal at 1.3. Chest x-ray on 09/12 shows no significant change, mild cardiomegaly and congestive failure with interstitial pulmonary ed blossom. Consolidation in the left base may be due to atelectasis, still rule out pneumonia, bilateral p leural effusion. CURRENT MEDICATIONS: Include: 1. Lasix IV 40 twice a day was ordered by the sql server architect. 2. Renvela 0.8 per G-tube q.8h. 3. Culturelle b.i.d. 4. Precedex as directed. 5. Valtrex 500 b.i.d. 6. Kenalog b.i.d. 7. Vancomycin 250 q. 6 hours. 8. Empirically Flagyl 500 q.8h. 9. ____ b.i.d. 10. Multivitamin 30 mL daily. 11. Zinc sulfate 20 daily. 12. Vitamin C 500 mg daily. 13. Folic acid ____ daily. 14. Diflucan IV daily. 15. Fentanyl, currently off. 16. Prevacid 20 mg daily. 17. Doxycycline IV dose per pharmacy. 18. Clonidine patch q. weekly. 19. Ativan p.r.n. 20. DuoNeb p.r.n. 21. Hydralazine p.r.n. 22. Heparin 5000 b.i.d. 23. Colace 100 b.i.d. 24. Lexapro 20 mg daily. 25. Xanax 0.5 at bedtime. 26. Zofran as directed. 27. Tylenol as directed. 28. Colace as directed. 29. Milk of magnesia as directed. ASSESSMENT AND PLAN: This is an 87-year-old [place]ian male with history of atrial fibrillation, hyper tension, low back pain, depression, presents with shortness of breath, was found to have multifocal p neumonia. 1. Respiratory. Finished a course of antibiotics. Chest x-ray suggests possible fluid overload, no w on Lasix. Followup chest x-ray in the a.m. Weaning per sql server architect. 2. Cardiovascular. Vitals remain stable. The patient is on heparin for DVT prophylaxis, but due to trending down of his platelets, may hold it. Will follow 1 more day. 3. Infectious disease. Continue doxycycline. Continue Diflucan. ID is following. White count has improved. IV steroids were discontinued. 4. Gastrointestinal. Continue NG tube feeding, tolerating it well. 5. Acute renal failure due to diuretics administration. The patient with adequate urine output. Co ntinue to monitor. Currently no indication for dialysis, but we will follow. 6. Neurologically, sedated with Precedex. Benzodiazepine was recommended to be stopped by pulmonlaurel light. 7. Note ins and outs have been mostly positive, so Lasix has been given. Case discussed with nephew . We will follow. 8. Anemia, slight drop in his H and H. Currently no evidence of bleeding. Make sure patient is on P PI with Prevacid. We will follow. Dictated By: SERGIO CERVANTES/NEHAL Conf#: [id number] DID#: [id number]
--- NOTE | 2018-09-14 08:32 | PN ---
DATE: 09/14/2018 SUBJECTIVE: The patient remains critically ill on full ventilatory support. No other acute events n oted. No hemoptysis, hematemesis or hematochezia. OBJECTIVE: VITAL SIGNS: Blood pressure is 107/52, respirations 20, pulse 56, temperature 98.0. HEENT: Head is normocephalic. NECK: Supple. HEART: Regular rate. LUNGS: Show diminished breath sounds at the base. ABDOMEN: Soft, nontender to palpation without rebound or guarding. EXTREMITIES: Negative for clubbing, cyanosis. Trace edema. DERMATOLOGIC: No rashes. MUSCULOSKELETAL: No joint effusion. NEUROLOGIC: No change in exam. MEDICATIONS: Reviewed. LABORATORY DATA: Reviewed. IMAGING STUDIES: Reviewed. ABG was reviewed. Chest x-ray was reviewed. ASSESSMENT AND PLAN: 1. Nonoliguric acute kidney injury on top of chronic kidney disease with unknown baseline creatinine . Etiology of acute kidney injury is secondary to hemodynamics, possible tubular injury. The patien t's renal function is fluctuating likely due to recent diuretic therapy. Plan is to continue current treatment plan, supportive care, renally dose all medications. Agree with holding diuretic therapy. No immediate need for renal replacement therapy. 2. Hypernatremia. The patient has free water deficit of approximately 3 liters. We will increase f ree water flushes 250 mL q.4h. and monitor. 3. Anemia. Monitor hemoglobin and hematocrit levels. 4. Mineral bone disorder. Monitor calcium and phosphorus levels. Continue phosphate binders. 5. Ventilator-dependent respiratory failure. Vent settings and ABG was reviewed. Continue to monit or. Follow up with pulmonary. 6. Sepsis secondary to pneumonia. Continue current antibiotic regimen. 7. Acute encephalopathy, etiology is toxic metabolic. Continue to monitor. 8. History of diastolic heart failure. Monitor I's and O's closely. We will give intermittent diur etic therapy as needed. 9. Diarrhea. Continue empiric Flagyl. 10. Benign prostatic hypertrophy. Continue medical management. Dictated By: ANGELA BALLARD DO NR/NTS Conf#: [id number] DID#: [id number] CC: OLIVE ANDREWS MD; SERGIO TREVINO MD;*EndCC*
--- NOTE | 2018-09-14 08:57 | CONS ---
Assessment/Plan Assessment/Plan Assessment/Plan (Daily) Ventilator setting; patient is currently on CPAP, 30% FiO2 pressure support of 10. PEEP of 5. Precedex drip 0.4 mics per kilogram per hour. Propofol 5 mics per kilogram per minute. Chest x-ray from today is pending. Assessment and recommendations; 1. Patient admitted with severe bilateral pneumonia with significant interval radiological improvement as well as improvement in hypoxemia. 2. Mild CHF. 3. Underlying COPD. 4. Chronic renal insufficiency. 5. Anemia and thrombocytopenia. Continue CPAP trial as tolerated. Continue current antimicrobial regimen as well. Prognosis is guarded. Consultation Date/Type/Reason Admit Date/Time Aug 29, 2018 at 05:45 Initial Consult Date 08/30/18 Type of Consult Pulmonary Patient condition is tenuous. On BiPAP. Having significant chest congestion. Take slightly yellow-tinged secretions noted on suctioning. Patient requiring deep nasotracheal suctioning. General exam; elderly male, mildly lethargic. Requesting Provider: SERGIO TREVINO MD Date/Time of Note DATE: 09/14/18 TIME: 08:54 24 HR Interval Summary Free Text/Dictation Patient's condition is critical. Patient is currently on CPAP trial and is appearing tachypneic. Has failed multiple weaning trials so far. General exam; elderly male, orally intubated, awake but lethargic. Currently no distress. Exam/Review of Systems Exam Vitals Vital Signs Date Temp Pulse Resp B/P (MAP) Pulse Ox O2 O2 Flow FiO2 Time Delivery Rate 09/14/18 55 08:00 09/14/18 30 96 30 07:45 09/14/18 107/52 Mechanical 06:00 (70) Ventilator 09/14/18 98.0 04:00 Intake and Output 09/13/18 09/13/18 09/14/18 1515:00 23:00 07:00 IntakeIntake Total 459.30 ml 570.037 ml 570 ml OutputOutput Total 950 ml 880 ml 1300 ml BalanceBalance -490.70 ml -309.963 ml -730 ml Exam H ENT exam; supple neck, no JVD. No lymphadenopathy. Midline trachea. No thyromegaly. Orally intubated. Patient is edentulous. No neck masses. Chest exam; diminished breath sounds throughout. S1-S2 audible, no murmurs. Regular rhythm. Abdomen exam; soft, no organomegaly. Bowel sounds audible. Extremity exam; no edema. Patient does have patchy ecchymosis. [employer] exam; patient awake but lethargic. Results Result Diagram: 09/14/18 0450 09/14/18 0450 Results 24hrs Laboratory Tests Test 09/14/18 04:50 White Blood Count 14.2 H Red Blood Count 3.03 L Hemoglobin 9.3 L Hematocrit 29.3 L Mean Corpuscular Volume 96.7 Mean Corpuscular Hemoglobin 30.7 Mean Corpuscular Hemoglobin Concent 31.7 L Red Cell Distribution Width 14.7 H Platelet Count 134 L Mean Platelet Volume 12.8 H Immature Granulocytes % 0.800 H Neutrophils % 82.3 H Lymphocytes % 12.6 L Monocytes % 3.3 Eosinophils % 0.9 Basophils % 0.1 Nucleated Red Blood Cells % 0.0 Immature Granulocytes # 0.120 H Neutrophils # 11.7 H Lymphocytes # 1.8 Monocytes # 0.5 Eosinophils # 0.1 Basophils # 0.0 Nucleated Red Blood Cells # 0.0 Sodium Level 151 H Potassium Level 3.9 Chloride Level 123 H Carbon Dioxide Level 22 Anion Gap 6 Blood Urea Nitrogen 110 H Creatinine 2.51 H Est Glomerular Filtrat Rate mL/min Glucose Level 115 Calcium Level 7.2 L Medications Medication Current Medications IV Flush (NS 3 ml) 3 ml PER PROTOCOL IV ; Start 08/29/18 at 06:00 Ondansetron HCl (Zofran Inj) 4 mg Q6H PRN IV NAUSEA/VOMITING Last administered on 08/31/18at 05:02; Admin Dose 4 MG; Start 08/29/18 at 06:00 Acetaminophen (Tylenol Tab) 650 mg Q6H PRN PO .PAIN 1-3 OR TEMP; Start 08/29/18 at 06:00 Docusate Sodium (Colace) 100 mg Q12H PRN PO .CONSTIPATION Last administered on 08/30/18at 21:37; Admin Dose 100 MG; Start 08/29/18 at 06:00 Magnesium Hydroxide (Milk Of Mag) 30 ml DAILY PRN PO .CONSTIPATION Last administered on 09/02/18at 05:16; Admin Dose 30 ML; Start 08/29/18 at 06:00 Alprazolam (Xanax) 0.5 mg QHS PO Last administered on 09/13/18at 20:13; Admin Dose 0.5 MG; Start 08/29/18 at 21:00 Escitalopram Oxalate (Lexapro) 20 mg DAILY PO Last administered on 09/13/18 08:44; Admin Dose 20 MG; Start 08/30/18 at 09:00 Docusate Sodium (Colace) 100 mg BID PO Last administered on 09/10/18 21:24; Admin Dose 100 MG; Start 08/31/18 at 13:30 Lorazepam (Ativan) 0.5 mg Q6H PRN PO ANXIETY; Start 09/02/18 at 13:00 Bisacodyl (Dulcolax Supp) 10 mg DAILY PRN [place] CONSTIPATION; Start 09/03/18 at 12:00 Heparin Sodium (Porcine) (Heparin (5000 Units/1ml)) 5,000 unit BID SC Last administered on 09/13/18 20:21; Admin Dose 5,000 UNIT; Start 09/03/18 at 14:00 Hydralazine HCl (Apresoline) 10 mg Q3 PRN IV ELEVATED SYSTOLIC BP Last administered on 09/05/18 19:48; Admin Dose 10 MG; Start 09/03/18 at 18:00 Albuterol/ Ipratropium (Duoneb) 3 ml Q2H RESP THERAPY PRN HHN SHORTNESS OF BREATH; Start 09/03/18 at 20:00 Lorazepam (Ativan) 1 mg Q6H PRN IV anxiety Last administered on 09/06/18at 00:00; Admin Dose 1 MG; Start 09/05/18 at 09:00 Clonidine HCl (Catapres-Tts 1 Patch) 1 patch Q7D TRANSDERM Last administered on 09/12/18 13:19; Admin Dose 1 PATCH; Start 09/05/18 at 13:30 Propofol 100 ml @ 2.509 mls/ hr Q12H IV Last administered on 09/14/18 06:57; Admin Dose 10.037 MLS/HR; Start 09/06/18 at 09:30 Lansoprazole (Prevacid) 30 mg DAILY@06 NGT Last administered on 09/14/18 05 :20; Admin Dose 30 MG; Start 09/07/18 at 06:00 Fentanyl 100 ml @ 2.5 mls/hr TITRATE IV Last administered on 09/07/18 09:19; Admin Dose 2.5 MLS/HR; Start 09/07/18 at 09:30 Fluconazole/ Sodium Chloride 50 ml @ 50 mls/hr Q24H IVPB Last administered on 09/13/18 12:52; Admin Dose 50 MLS/HR; Start 09/07/18 at 11:30 Multivitamins (Multivitamin) 30 ml DAILY NGT Last administered on 09/13/18 08:34; Admin Dose 30 ML; Start 09/07/18 at 14:30 Zinc Sulfate (Zinc Sulfate) 220 mg DAILY PO Last administered on 09/13/18 08:34; Admin Dose 220 MG; Start 09/07/18 at 14:30 Ascorbic Acid (Vitamin C) 500 mg DAILY NGT Last administered on 09/13/18 08:34; Admin Dose 500 MG; Start 09/07/18 at 14:30 Folic Acid (Folic Acid) 1 mg DAILY NGT Last administered on 09/13/18 08:34; Admin Dose 1 MG; Start 09/07/18 at 14:30 Petrolatum (Vaseline) APPLY TO MULTIPLE SC... BID TOP Last administered on 09/13/18 20:14; Admin Dose 1 EA; Start 09/08/18 at 09:00 Metronidazole (Flagyl) 500 mg Q8 PO Last administered on 09/14/18 05:20; Admin Dose 500 MG; Start 09/08/18 at 14:00 IV Flush (NS 10 ml) 10 ml PRN PRN IV FLUSH LINE; Start 09/09/18 at 11:30 Vancomycin HCl (Vancomycin Oral Syringe) 250 mg Q6 PO Last administered on 09/14/18 05:23; Admin Dose 250 MG; Start 09/10/18 at 12:00 Dexmedetomidine HCl 200 mcg/ Sodium Chloride 50 ml @ 4.18 mls/hr TITRATE IV Last administered on 09/13/18 06:56; Admin Dose 8.36 MLS/HR; Start 09/12/18 at 14:00 Valacyclovir HCl (Valtrex) 500 mg BID PO Last administered on 09/13/18 20:13; Admin Dose 500 MG; Start 09/12/18 at 14:00 Triamcinolone Acetonide (Kenalog 0.1% Cr) 1 applic BID TOP Last administered on 09/13/18 20:14; Admin Dose 1 APPLIC; Start 09/12/18 at 14:00 Lactobacillus Acidophilus/ Rhamnosus (Culturelle) 1 cap BID PO Last administered on 09/13/18at 20:13; Admin Dose 1 CAP; Start 09/12/18 at 14:30 Sevelamer Carbonate (Renvela) 0.8 gm Q8H NGT Last administered on 09/14/18at 05:20; Admin Dose 0.8 GM; Start 09/13/18 at 12:30 Vancomycin HCl (Vanco Iv Per Pharmacy) VANCOMYCIN PER PHARMACY PER PROTOCOL XX ; Start 09/13/18 at 19:00 Vancomycin HCl 1.5 gm/Sodium Chloride 250 ml @ 83.333 mls/ hr Q48H IVPB Last administered on 09/13/18at 21:35; Admin Dose 83.333 MLS/HR; Start 09/13/18 at 21:00 JUDE GODINEZ Sep 14, 2018 08:57
[2018-09-14] MEDS: LACTOBACILLUS RHAMNOSUS CAP PO SCH ×2 (10:28→20:43)
[2018-09-14] MEDS: PETROLATUM 5 GM OINT TOP SCH ×2 (10:28→20:44)
[2018-09-14] MEDS: valACYclovir 500 MG TAB PO SCH ×2 (10:29→20:43)
[2018-09-14] MEDS: ZINC SULFATE 220 MG CAP PO SCH (10:29)
[2018-09-14] MEDS: DOCUSATE SODIUM 100 MG CAP PO SCH ×2 (10:29→20:17)
[2018-09-14] MEDS: ESCITALOPRAM 10 MG TAB PO SCH (10:29)
[2018-09-14] MEDS: ASCORBIC ACID 500 MG TAB NGT SCH (10:29)
[2018-09-14] MEDS: FOLIC ACID 1 MG TAB NGT SCH (10:29)
[2018-09-14] MEDS: MULTIVITAMINS 30 ML CUP NGT SCH (10:29)
[2018-09-14] MEDS: TRIAMCINOLONE ACET 0.1% 15 GM CR TOP SCH ×2 (10:30→20:43)
[2018-09-14] MEDS: DEXMEDETOMIDINE HCL 200 MCG in SOD CHLORIDE 0.9% 48 ML IV SCH ×2 (10:30→20:39)
[2018-09-14] MEDS: BALSAM PERU/CASTOR OIL 60 GM TUBE TOP SCH ×2 (10:30→20:43)
[2018-09-14] MEDS: HEPARIN 5,000 UNIT/1 ML VIAL SC SCH ×2 (10:34→20:44)
[2018-09-14] MEDS: FLUCONAZOLE 100 MG/50 ML (PMX) 50 ML IVPB SCH (11:46)
--- NOTE | 2018-09-14 14:59 | CONS ---
Assessment/Plan Assessment/Plan Hospital Course (Demo Recall) Patient feels CPAP trial again. He is noncommunicative in no distress with a T- max of 99.8 WBC 14.2 neutrophils 82.3 BUN 110 creatinine 2.51 Microbiology: Blood culture repeated 2 days ago grew staph species 1 out of 2 sets Chest x-ray this morning revealed similar appearance of small left greater than right basilar atelectasis/infiltrates and probable small layering pleural effusions Antimicrobials: Flagyl, oral/IV vancomycin, fluconazole,Valtrex Indwelling's: Endotracheal tube NG tube Mcgowan catheter Physical examination: Well-developed well-nourished elderly man who is awake in no distress. Head atraumatic normocephalic sclera nonicteric vehicle mucosa dry neck is supple chest rise symmetrical breath sounds with bilateral rhonchi. Heart: S1-S2. Abdomen soft bowel sounds present. Assessment: 1. Acute hypoxemic respiratory failure 2. Resolved pneumonia 3. CHF 4. Bradycardia 5. Acute kidney injury 6. Diarrhea 7. Leukocytosis, likely steroid-induced versus leukemoid reaction, resolving 8. Mouth lesions, on empiric Valtrex 9. Staph bacteremia likely contaminant Plan: Patient remains stable, continue present care, weaning trials per pulmonary, await for final sensitivities DW son at bedside Consultation Date/Type/Reason Admit Date/Time Aug 29, 2018 at 05:45 Initial Consult Date 08/30/18 Type of Consult id Requesting Provider: SERGIO TREVINO MD Date/Time of Note DATE: 09/14/18 TIME: 14:57 Exam/Review of Systems Exam Vitals Vital Signs Date Temp Pulse Resp B/P (MAP) Pulse Ox O2 O2 Flow FiO2 Time Delivery Rate 09/14/18 50 20 97 13:30 09/14/18 98/51 (67) Mechanical 12:15 Ventilator 09/14/18 98.8 12:00 09/14/18 30 09:25 Intake and Output 09/13/18 09/13/18 09/14/18 1515:00 23:00 07:00 IntakeIntake Total 459.30 ml 570.037 ml 570 ml OutputOutput Total 950 ml 880 ml 1300 ml BalanceBalance -490.70 ml -309.963 ml -730 ml Results Result Diagram: 09/14/18 0450 09/14/18 0450 Results 24hrs Laboratory Tests Test 09/14/18 04:50 09/14/18 09:00 White Blood Count 14.2 H Red Blood Count 3.03 L Hemoglobin 9.3 L Hematocrit 29.3 L Mean Corpuscular Volume 96.7 Mean Corpuscular Hemoglobin 30.7 Mean Corpuscular Hemoglobin Concent 31.7 L Red Cell Distribution Width 14.7 H Platelet Count 134 L Mean Platelet Volume 12.8 H Immature Granulocytes % 0.800 H Neutrophils % 82.3 H Lymphocytes % 12.6 L Monocytes % 3.3 Eosinophils % 0.9 Basophils % 0.1 Nucleated Red Blood Cells % 0.0 Immature Granulocytes # 0.120 H Neutrophils # 11.7 H Lymphocytes # 1.8 Monocytes # 0.5 Eosinophils # 0.1 Basophils # 0.0 Nucleated Red Blood Cells # 0.0 Sodium Level 151 H Potassium Level 3.9 Chloride Level 123 H Carbon Dioxide Level 22 Anion Gap 6 Blood Urea Nitrogen 110 H Creatinine 2.51 H Est Glomerular Filtrat Rate mL/min Glucose Level 115 Calcium Level 7.2 L Blood Gas Specimen Source Blood arterial Arterial Blood Date Drawn 09/14/2018 10:05:30 AM Arterial Blood pH (Temp corrected) 7.395 Arterial Blood pCO2 (Temp correct) 33.8 L Arterial Blood pO2 (Temp corrected) 90.6 H Arterial Blood HCO3 20.2 L Arterial Blood Base Excess -4.0 L Arterial Blood Oxygen Saturation 95.5 Domenico Test ACCEPTAB Arterial Blood Gas Puncture Site Right Radial Arterial Blood Carboxyhemoglobin 0.1 Arterial Blood Methemoglobin 0.1 Blood Gas A-a O2 Differential 83.6 H Oxyhemoglobin Percent 95.3 Blood Gas Temperature 37.0 Blood Gas Actual Respiration Rate 30 Blood Gas Modality VENT - CPAP FiO2 30.0 Blood Gas Low PEEP Setting 5.0 Blood Gas Pressure Support 10 Blood Gas Notified Whom TM Blood Gas Notified Time 09/14/2018 10:14:13 AM Medications Medication Current Medications IV Flush (NS 3 ml) 3 ml PER PROTOCOL IV ; Start 08/29/18 at 06:00 Ondansetron HCl (Zofran Inj) 4 mg Q6H PRN IV NAUSEA/VOMITING Last administered on 08/31/18at 05:02; Admin Dose 4 MG; Start 08/29/18 at 06:00 Acetaminophen (Tylenol Tab) 650 mg Q6H PRN PO .PAIN 1-3 OR TEMP; Start 08/29/18 at 06:00 Docusate Sodium (Colace) 100 mg Q12H PRN PO .CONSTIPATION Last administered on 08/30/18 21:37; Admin Dose 100 MG; Start 08/29/18 at 06:00 Magnesium Hydroxide (Milk Of Mag) 30 ml DAILY PRN PO .CONSTIPATION Last administered on 09/02/18 05:16; Admin Dose 30 ML; Start 08/29/18 at 06:00 Alprazolam (Xanax) 0.5 mg QHS PO Last administered on 09/13/18 20:13; Admin Dose 0.5 MG; Start 08/29/18 at 21:00 Escitalopram Oxalate (Lexapro) 20 mg DAILY PO Last administered on 09/14/18 10:29; Admin Dose 20 MG; Start 08/30/18 at 09:00 Docusate Sodium (Colace) 100 mg BID PO Last administered on 09/14/18 10:29; Admin Dose 100 MG; Start 08/31/18 at 13:30 Lorazepam (Ativan) 0.5 mg Q6H PRN PO ANXIETY; Start 09/02/18 at 13:00 Bisacodyl (Dulcolax Supp) 10 mg DAILY PRN [place] CONSTIPATION; Start 09/03/18 at 12:00 Heparin Sodium (Porcine) (Heparin (5000 Units/1ml)) 5,000 unit BID SC Last administered on 09/14/18at 10:34; Admin Dose 5,000 UNIT; Start 09/03/18 at 14:00 Hydralazine HCl (Apresoline) 10 mg Q3 PRN IV ELEVATED SYSTOLIC BP Last administered on 09/05/18at 19:48; Admin Dose 10 MG; Start 09/03/18 at 18:00 Albuterol/ Ipratropium (Duoneb) 3 ml Q2H RESP THERAPY PRN HHN SHORTNESS OF BREATH; Start 09/03/18 at 20:00 Lorazepam (Ativan) 1 mg Q6H PRN IV anxiety Last administered on 09/06/18at 00:00; Admin Dose 1 MG; Start 09/05/18 at 09:00 Propofol 100 ml @ 2.509 mls/ hr Q12H IV Last administered on 09/14/18at 06:57; Admin Dose 10.037 MLS/HR; Start 09/06/18 at 09:30 Lansoprazole (Prevacid) 30 mg DAILY@06 NGT Last administered on 09/14/18 05:20; Admin Dose 30 MG; Start 09/07/18 at 06:00 Fentanyl 100 ml @ 2.5 mls/hr TITRATE IV Last administered on 09/07/18 09:19; Admin Dose 2.5 MLS/HR; Start 09/07/18 at 09:30 Fluconazole/ Sodium Chloride 50 ml @ 50 mls/hr Q24H IVPB Last administered on 09/14/18 11:46; Admin Dose 50 MLS/HR; Start 09/07/18 at 11:30 Multivitamins (Multivitamin) 30 ml DAILY NGT Last administered on 09/14/18 10:29; Admin Dose 30 ML; Start 09/07/18 at 14:30 Zinc Sulfate (Zinc Sulfate) 220 mg DAILY PO Last administered on 09/14/18 10:29; Admin Dose 220 MG; Start 09/07/18 at 14:30 Ascorbic Acid (Vitamin C) 500 mg DAILY NGT Last administered on 09/14/18 10:29; Admin Dose 500 MG; Start 09/07/18 at 14:30 Folic Acid (Folic Acid) 1 mg DAILY NGT Last administered on 09/14/18 10:29; Admin Dose 1 MG; Start 09/07/18 at 14:30 Petrolatum (Vaseline) APPLY TO MULTIPLE SC... BID TOP Last administered on 09/14/18 10:28; Admin Dose 1 EA; Start 09/08/18 at 09:00 Metronidazole (Flagyl) 500 mg Q8 PO Last administered on 09/14/18 13:20; Admin Dose 500 MG; Start 09/08/18 at 14:00 IV Flush (NS 10 ml) 10 ml PRN PRN IV FLUSH LINE; Start 09/09/18 at 11:30 Vancomycin HCl (Vancomycin Oral Syringe) 250 mg Q6 PO Last administered on 09/14/18 13:17; Admin Dose 250 MG; Start 09/10/18 at 12:00 Dexmedetomidine HCl 200 mcg/ Sodium Chloride 50 ml @ 4.18 mls/hr TITRATE IV Last administered on 09/14/18 10:30; Admin Dose 4.18 MLS/HR; Start 09/12/18 at 14:00 Valacyclovir HCl (Valtrex) 500 mg BID PO Last administered on 09/14/18at 10:29; Admin Dose 500 MG; Start 09/12/18 at 14:00 Triamcinolone Acetonide (Kenalog 0.1% Cr) 1 applic BID TOP Last administered on 09/14/18 10:30; Admin Dose 1 APPLIC; Start 09/12/18 at 14:00 Lactobacillus Acidophilus/ Rhamnosus (Culturelle) 1 cap BID PO Last administered on 09/14/18at 10:28; Admin Dose 1 CAP; Start 09/12/18 at 14:30 Sevelamer Carbonate (Renvela) 0.8 gm Q8H NGT Last administered on 09/14/18at 13:16; Admin Dose 0.8 GM; Start 09/13/18 at 12:30 Vancomycin HCl (Vanco Iv Per Pharmacy) VANCOMYCIN PER PHARMACY PER PROTOCOL XX ; Start 09/13/18 at 19:00 Vancomycin HCl 1.5 gm/Sodium Chloride 250 ml @ 83.333 mls/ hr Q48H IVPB Last administered on 09/13/18at 21:35; Admin Dose 83.333 MLS/HR; Start 09/13/18 at 21:00 TAYLOR RIZZO NP Sep 14, 2018 14:59
--- NOTE | 2018-09-14 15:22 | PN ---
DATE: 09/14/2018 SUBJECTIVE: The patient was seen. Unfortunately, the patient failed CPAP trial again. Also noted t o have episodes of bradycardia, which may be related to propofol, also borderline blood pressure is n oted as well. The patient also 1 out of 2 bottles showed Staph species, may be contamination. Vanco mycin was empirically started. Temperature 98.8, pulse 48, respirations 20, blood pressure 98/51, sa turation 97% on 30% FIO2. ABG today shows a pH of 7.39, pCO2 of 34. Bicarbonate 20, pO2 is 90, satu ration 95%, this is on CPAP 30% FiO2, PEEP of 5. PHYSICAL EXAMINATION: SKIN: The patient with nasal and oral rash. CARDIOVASCULAR: S1, S2, bradycardic. LUNGS: Decreased bilaterally but otherwise now clear. ABDOMEN: Soft, nontender. EXTREMITIES: +1 to 2 pitting edema of the hands and feet. Spontaneous movement of the arms noted. LABORATORY DATA: White count 14.2, hemoglobin 9.3, hematocrit 29, platelet count 134, neutrophils 82 %, lymphs 13%. Chemistry: Sodium 151, potassium 3.9, chloride 23, bicarbonate 22, BUN is 110, creat inine 2.51, glucose 115. Again, blood cultures 1 out of 2 shows Staph species. MEDICATIONS: 1. Vancomycin dose per pharmacy. 2. Renvela 0.8 every 8 hours. 3. Culturelle b.i.d. 4. Precedex as directed. 5. Valtrex 500 b.i.d. 6. Kenalog b.i.d. 7. Vancomycin 250 q.6 hours. 8. Flagyl 500 q.8 hours. 9. Vaseline p.r.n. 10. Multivitamin 30 mL daily. 11. Zinc sulfate 20 daily. 12. Vitamin C 1 gram daily. 13. Folic acid 1 mg daily. 14. Diflucan q.24 hours. 15. Prevacid 30 mg daily. 16. Clonidine 1 patch daily. Will discontinue it. 17. Ativan. 18. DuoNeb. 19. Hydralazine. 20. Heparin. 21. Dulcolax. 22. Colace. 23. Lexapro. 24. Xanax. 25. Zofran. 26. Tylenol. 27. Milk of magnesia. Most of them are p.r.n. meds. ASSESSMENT AND PLAN: This is an 87-year-old Spanish male with history of atrial fibrillation, hyper tension, low back pain. The patient presented with shortness of breath, was found to have multifocal pneumonia. 1. Respiratory: Finished the course of pneumonia, but unfortunately is unable to be weaned off the vent. May need a tracheostomy. The patient has been treated intermittently with Lasix as well. Liat st x-ray done today shows interval advancement of ET tube in the radiographically satisfactory positi on. Similar appearance of small left greater than right basilar atelectasis or infiltrate and probab le small layering pleural effusion. Definitely anxiety is part of his difficult weaning process. Fu rther decision will be made by pulmonary with discussion with family. 2. Cardiovascular: The patient with episodes of bradycardia and hypotension. Will discontinue clon idine patch. Continue to monitor. Bolus of fluids may be considered. The patient I do not believe he is intravascularly fluid overloaded. This patient is status post multiple diuretic treatments. 3. Multiple wounds. Wound care consult is on board. Continue Valtrex, Diflucan, Vaseline cream and Kenalog ointment. 4. Nutrition: Currently on G-tube on NG tube feeding at 50 mL an hour, tolerating it well. 5. Acute renal failure due to administration of diuretics. 6. Neurological: Sedated with Precedex and propofol. 7. Anemia. No need for transfusion. Continue Prevacid via NG tube. Monitor H and H. Currently no evidence of bleeding. Check stool for blood. We will follow. 8. Continue Culturelle for probiotics. Dictated By: SERGIO CERVANTES/NEHAL Conf#: [id number] DID#: [id number]
--- NOTE | 2018-09-14 17:23 | CONS ---
Consult Date/Type/Reason Admit Date/Time Aug 29, 2018 at 05:45 Initial Consult Date 09/07/18 Type of Consultation: cv Requesting Provider: SERGIO TREVINO MD Date/Time of Note DATE: 09/14/18 TIME: 17:22 Subjective Interventional cardiology follow-up progress note Subjective: Case discussed with the staff and telemetry was reviewed. Patient has remained sinus rhythm but this morning he has been in marked sinus bradycardia. Improved after sedation was weaned down. No long pauses reported. No significant other arrhythmias reported. Patient remains intubated on the vent in the ICU nonverbal. mild secretions per staff + Diarrhea per RN report O General: Elderly gentleman. Status post intubation on the vent HEENT: NC/AT. pupils are equal. round. NECK: NO JVD. no stridor. CV: RRR. systolic murmur; no gallop or rubs. PULM: no wheezing + rhonchi. GI: SOFT, NT, ND, no rebound or guarding Extremity: trace B/L LE edema. no clubbing. neuro: sedated Psych: calm rectal: deferred EKG normal sinus rhythm Chest x-ray on admission showed: 1. Right basilar interstitial opacities, new from the prior examination from a few hours prior, likely reflecting atelectasis. 2. Mild prominence of the interstitial markings, may reflect mild underlying interstitial edema or chronic lung changes. 3. Mild cardiomegaly and aortic atherosclerosis. Chest x-ray done on 09/06/2018 shows: 1. Atherosclerosis of the thoracic aorta. 2. Persistent bilateral pulmonary infiltrates which could represent infection or non infection related edema or combination of the 2. 3. Endotracheal and nasogastric tubes in place. Echocardiogram done on 08/29/2018 which was personally reviewed shows: There is mild to mod enlargement of left atrium. Normal left ventricular systolic function. Normal left ventricular cavity size. Normal left ventricular wall thickness. Ejection fraction is visually estimated at 60-65 %. Normal appearance of the mitral valve. Mild mitral valve regurgitation. Normal appearance of the aortic valve. No aortic regurgitation. Normal appearance of the tricuspid valve. The estimated Peak RVSP is 53 mmHg. There is mild tricuspid regurgitation. The IVC is not well visualized. Objective Vitals Vital Signs Date Temp Pulse Resp B/P (MAP) Pulse Ox O2 O2 Flow FiO2 Time Delivery Rate 09/14/18 49 26 106/51 95 Mechanical 17:00 (69) Ventilator 09/14/18 96.4 16:00 09/14/18 30 15:25 Intake and Output 09/13/18 09/13/18 09/14/18 1515:00 23:00 07:00 IntakeIntake Total 459.30 ml 570.037 ml 570 ml OutputOutput Total 950 ml 880 ml 1330 ml BalanceBalance -490.70 ml -309.963 ml -760 ml Results/Medications Result Diagram: 09/14/18 0450 09/14/18 0450 Results 24 hrs Laboratory Tests Test 09/14/18 04:50 09/14/18 09:00 White Blood Count 14.2 H Red Blood Count 3.03 L Hemoglobin 9.3 L Hematocrit 29.3 L Mean Corpuscular Volume 96.7 Mean Corpuscular Hemoglobin 30.7 Mean Corpuscular Hemoglobin Concent 31.7 L Red Cell Distribution Width 14.7 H Platelet Count 134 L Mean Platelet Volume 12.8 H Immature Granulocytes % 0.800 H Neutrophils % 82.3 H Lymphocytes % 12.6 L Monocytes % 3.3 Eosinophils % 0.9 Basophils % 0.1 Nucleated Red Blood Cells % 0.0 Immature Granulocytes # 0.120 H Neutrophils # 11.7 H Lymphocytes # 1.8 Monocytes # 0.5 Eosinophils # 0.1 Basophils # 0.0 Nucleated Red Blood Cells # 0.0 Sodium Level 151 H Potassium Level 3.9 Chloride Level 123 H Carbon Dioxide Level 22 Anion Gap 6 Blood Urea Nitrogen 110 H Creatinine 2.51 H Est Glomerular Filtrat Rate mL/min Glucose Level 115 Calcium Level 7.2 L Blood Gas Specimen Source Blood arterial Arterial Blood Date Drawn 09/14/2018 10:05:30 AM Arterial Blood pH (Temp corrected) 7.395 Arterial Blood pCO2 (Temp correct) 33.8 L Arterial Blood pO2 (Temp corrected) 90.6 H Arterial Blood HCO3 20.2 L Arterial Blood Base Excess -4.0 L Arterial Blood Oxygen Saturation 95.5 Domenico Test ACCEPTAB Arterial Blood Gas Puncture Site Right Radial Arterial Blood Carboxyhemoglobin 0.1 Arterial Blood Methemoglobin 0.1 Blood Gas A-a O2 Differential 83.6 H Oxyhemoglobin Percent 95.3 Blood Gas Temperature 37.0 Blood Gas Actual Respiration Rate 30 Blood Gas Modality VENT - CPAP FiO2 30.0 Blood Gas Low PEEP Setting 5.0 Blood Gas Pressure Support 10 Blood Gas Notified Whom TM Blood Gas Notified Time 09/14/2018 10:14:13 AM Home Meds Reported Medications Losartan Potassium* (Losartan Potassium*) 50 Mg Tablet, 50 MG PO DAILY, TAB 08/29/18 Simvastatin (Simvastatin) 20 Mg Tablet, 20 MG PO QHS for 90 Days, #90 08/29/18 Furosemide* (Furosemide*) 40 Mg Tablet, 40 MG PO DAILY for 90 Days, #90 08/29/18 Potassium Chloride (K-Tab ER) 8 Meq Tablet.er, 8 MEQ PO BID for 90 Days, #180 08/29/18 Escitalopram Oxalate* (Escitalopram Oxalate*) 10 Mg Tablet, 20 MG PO DAILY for 90 Days, #90 08/29/18 Hydrocodone Bit-Acetaminophen (Hydrocodone Bit-APAP) 5-325MG Tablet, 1 TAB PO DAILY 08/29/18 Dexlansoprazole (Dexilant) 60 Mg Cap., 60 MG PO DAILY for 90 Days, #90 08/29/18 Amiodarone Hcl* (Amiodarone Hcl*) 200 Mg Tablet, 200 MG PO DAILY for 90 Days, #90 08/29/18 Alprazolam* (Alprazolam*) 0.5 Mg Tablet, 0.5 MG PO QHS for 30 Days, #30 08/29/18 Medications Current Medications IV Flush (NS 3 ml) 3 ml PER PROTOCOL IV ; Start 08/29/18 at 06:00 Ondansetron HCl (Zofran Inj) 4 mg Q6H PRN IV NAUSEA/VOMITING Last administered on 08/31/18at 05:02; Admin Dose 4 MG; Start 08/29/18 at 06:00 Acetaminophen (Tylenol Tab) 650 mg Q6H PRN PO .PAIN 1-3 OR TEMP; Start 08/29/18 at 06:00 Docusate Sodium (Colace) 100 mg Q12H PRN PO .CONSTIPATION Last administered on 08/30/18at 21:37; Admin Dose 100 MG; Start 08/29/18 at 06:00 Magnesium Hydroxide (Milk Of Mag) 30 ml DAILY PRN PO .CONSTIPATION Last administered on 09/02/18at 05:16; Admin Dose 30 ML; Start 08/29/18 at 06:00 Alprazolam (Xanax) 0.5 mg QHS PO Last administered on 09/13/18 20:13; Admin Do se 0.5 MG; Start 08/29/18 at 21:00 Escitalopram Oxalate (Lexapro) 20 mg DAILY PO Last administered on 09/14/18 10:29; Admin Dose 20 MG; Start 08/30/18 at 09:00 Docusate Sodium (Colace) 100 mg BID PO Last administered on 09/14/18 10:29; Admin Dose 100 MG; Start 08/31/18 at 13:30 Lorazepam (Ativan) 0.5 mg Q6H PRN PO ANXIETY; Start 09/02/18 at 13:00 Bisacodyl (Dulcolax Supp) 10 mg DAILY PRN VT CONSTIPATION; Start 09/03/18 at 12:00 Heparin Sodium (Porcine) (Heparin (5000 Units/1ml)) 5,000 unit BID SC Last administered on 09/14/18at 10:34; Admin Dose 5,000 UNIT; Start 09/03/18 at 14:00 Hydralazine HCl (Apresoline) 10 mg Q3 PRN IV ELEVATED SYSTOLIC BP Last administered on 09/05/18at 19:48; Admin Dose 10 MG; Start 09/03/18 at 18:00 Albuterol/ Ipratropium (Duoneb) 3 ml Q2H RESP THERAPY PRN HHN SHORTNESS OF BREATH; Start 09/03/18 at 20:00 Lorazepam (Ativan) 1 mg Q6H PRN IV anxiety Last administered on 09/06/18at 00:00; Admin Dose 1 MG; Start 09/05/18 at 09:00 Propofol 100 ml @ 2.509 mls/ hr Q12H IV Last administered on 09/14/18at 06:57; Admin Dose 10.037 MLS/HR; Start 09/06/18 at 09:30 Lansoprazole (Prevacid) 30 mg DAILY@06 NGT Last administered on 09/14/18at 05:20; Admin Dose 30 MG; Start 09/07/18 at 06:00 Fentanyl 100 ml @ 2.5 mls/hr TITRATE IV Last administered on 09/07/18 09:19; Admin Dose 2.5 MLS/HR; Start 09/07/18 at 09:30 Fluconazole/ Sodium Chloride 50 ml @ 50 mls/hr Q24H IVPB Last administered on 09/14/18 11:46; Admin Dose 50 MLS/HR; Start 09/07/18 at 11:30 Multivitamins (Multivitamin) 30 ml DAILY NGT Last administered on 09/14/18 10:29; Admin Dose 30 ML; Start 09/07/18 at 14:30 Zinc Sulfate (Zinc Sulfate) 220 mg DAILY PO Last administered on 09/14/18 10:29; Admin Dose 220 MG; Start 09/07/18 at 14:30 Ascorbic Acid (Vitamin C) 500 mg DAILY NGT Last administered on 09/14/18 10:29; Admin Dose 500 MG; Start 09/07/18 at 14:30 Folic Acid (Folic Acid) 1 mg DAILY NGT Last administered on 09/14/18 10:29; Admin Dose 1 MG; Start 09/07/18 at 14:30 Petrolatum (Vaseline) APPLY TO MULTIPLE SC... BID TOP Last administered on 09/14/18 10:28; Admin Dose 1 EA; Start 09/08/18 at 09:00 Metronidazole (Flagyl) 500 mg Q8 PO Last administered on 09/14/18 13:20; Admin Dose 500 MG; Start 09/08/18 at 14:00 IV Flush (NS 10 ml) 10 ml PRN PRN IV FLUSH LINE; Start 09/09/18 at 11:30 Vancomycin HCl (Vancomycin Oral Syringe) 250 mg Q6 PO Last administered on 09/14/18 13:17; Admin Dose 250 MG; Start 09/10/18 at 12:00 Dexmedetomidine HCl 200 mcg/ Sodium Chloride 50 ml @ 4.18 mls/hr TITRATE IV Last administered on 09/14/18 10:30; Admin Dose 4.18 MLS/HR; Start 09/12/18 at 14:00 Valacyclovir HCl (Valtrex) 500 mg BID PO Last administered on 09/14/18 10:29; Admin Dose 500 MG; Start 09/12/18 at 14:00 Triamcinolone Acetonide (Kenalog 0.1% Cr) 1 applic BID TOP Last administered on 09/14/18 10:30; Admin Dose 1 APPLIC; Start 09/12/18 at 14:00 Lactobacillus Acidophilus/ Rhamnosus (Culturelle) 1 cap BID PO Last administered on 09/14/18at 10:28; Admin Dose 1 CAP; Start 09/12/18 at 14:30 Sevelamer Carbonate (Renvela) 0.8 gm Q8H NGT Last administered on 09/14/18at 13:16; Admin Dose 0.8 GM; Start 09/13/18 at 12:30 Vancomycin HCl (Vanco Iv Per Pharmacy) VANCOMYCIN PER PHARMACY PER PROTOCOL XX ; Start 09/13/18 at 19:00 Vancomycin HCl 1.5 gm/Sodium Chloride 250 ml @ 83.333 mls/ hr Q48H IVPB Last administered on 09/13/18at 21:35; Admin Dose 83.333 MLS/HR; Start 09/13/18 at 21:00 Assessment/Plan Hospital Course (Demo Recall) 1. Marked sinus bradycardia: Appears to be asymptomatic and in sinus we will continue to monitor. Probably at least partially related to sedation 2. Acute hypoxemic respiratory failure status post intubation on the vent 3. Pulmonary hypertension 4. History of proximal atrial fibrillation: currently has remained in normal sinus rhythm/sinus bradycardia 5. Hypertension 6. Urinary retention status post surgery 7. Pneumonia possible COPD possible ARDS 8. Acute renal failure Recommendations: off the amiodarone given his marked bradycardia as well as his significant pulmonary disease. Continue blood pressure control. Vent support will be continued managed as per pulmonary Respiratory care to be continued. Continue with ICU care as long as patient is in the ventilator. Antibiotic management as per internal medicine consultants We will continue to monitor on telemetry thyroid management as per IM Antibiotic as per internal medicine Thank you for his referral. We will continue to follow along with you AMANDA DUNBAR MD [facility] AMANDA DUNBAR MD Sep 14, 2018 17:23
[2018-09-14] MEDS: ALPRAZOLAM 0.5 MG TAB PO SCH (20:43)
[2018-09-15] VITALS (97 sets, daily range): BP systolic 97–148; BP diastolic 41–81; PULSE 42–70; RESP 16–47
[2018-09-15] MEDS: VANCOMYCIN HCL 250 MG/5ML POSYG PO SCH ×4 (00:41→18:25)
[2018-09-15] MEDS: DEXMEDETOMIDINE HCL 200 MCG in SOD CHLORIDE 0.9% 48 ML IV SCH ×3 (00:53→18:25)
[2018-09-15] MEDS: SEVELAMER CARBONATE 0.8 GM PKT NGT SCH ×3 (05:14→20:48)
[2018-09-15] MEDS: metroNIDAZOLE 500 MG TAB PO SCH (05:14)
[2018-09-15] MEDS: LANSOPRAZOLE 30 MG CAP NGT SCH ×2 (05:15→18:25)
--- NOTE | 2018-09-15 07:15 | CONS ---
Consult Date/Type/Reason Admit Date/Time Aug 29, 2018 at 05:45 Initial Consult Date 09/07/18 Type of Consultation: cv Requesting Provider: SERGIO TREVINO MD Date/Time of Note DATE: 09/15/18 TIME: 07:14 Subjective Interventional cardiology follow-up progress note Subjective: Case discussed with the staff and telemetry was reviewed. Patient has remained sinus rhythm /.intermittently marked sinus bradycardia. No long pauses reported. No significant other arrhythmias reported. no afib Patient remains intubated on the vent in the ICU nonverbal. min secretions per staff + Diarrhea per RN report O General: Elderly gentleman. Status post intubation on the vent HEENT: NC/AT. pupils are equal. round. NECK: NO JVD. no stridor. CV: RRR. systolic murmur; no gallop or rubs. PULM: no wheezing + rhonchi. GI: SOFT, NT, ND, no rebound or guarding Extremity: trace B/L LE edema. no clubbing. neuro: opens her eye but does not follow Psych: calm rectal: deferred EKG normal sinus rhythm Chest x-ray on admission showed: 1. Right basilar interstitial opacities, new from the prior examination from a few hours prior, likely reflecting atelectasis. 2. Mild prominence of the interstitial markings, may reflect mild underlying interstitial edema or chronic lung changes. 3. Mild cardiomegaly and aortic atherosclerosis. Chest x-ray done on 09/06/2018 shows: 1. Atherosclerosis of the thoracic aorta. 2. Persistent bilateral pulmonary infiltrates which could represent infection or non infection related edema or combination of the 2. 3. Endotracheal and nasogastric tubes in place. Echocardiogram done on 08/29/2018 which was personally reviewed shows: There is mild to mod enlargement of left atrium. Normal left ventricular systolic function. Normal left ventricular cavity size. Normal left ventricular wall thickness. Ejection fraction is visually estimated at 60-65 %. Normal appearance of the mitral valve. Mild mitral valve regurgitation. Normal appearance of the aortic valve. No aortic regurgitation. Normal appearance of the tricuspid valve. The estimated Peak RVSP is 53 mmHg. There is mild tricuspid regurgitation. The IVC is not well visualized. Objective Vitals Vital Signs Date Temp Pulse Resp B/P (MAP) Pulse Ox O2 O2 Flow FiO2 Time Delivery Rate 09/15/18 48 33 104/49 94 06:00 (67) 6/18/19 30 05:00 09/15/18 Mechanical 05:00 Ventilator 09/15/18 98.9 00:00 Intake and Output 09/14/18 09/14/18 09/15/18 1515:00 23:00 07:00 IntakeIntake Total 488 ml 833.945 ml 891.84 ml OutputOutput Total 560 ml 520 ml 338 ml BalanceBalance -72 ml 313.945 ml 553.84 ml Results/Medications Result Diagram: 09/15/18 0400 09/15/18 0400 Results 24 hrs Laboratory Tests Test 09/14/18 09:00 09/14/18 17:00 09/15/18 04:00 Blood Gas Specimen Blood arterial Source Arterial Blood Date 09/14/2018 10:05:30 AM Drawn Arterial Blood pH 7.395 (Temp corrected) Arterial Blood pCO2 33.8 L (Temp correct) Arterial Blood pO2 90.6 H (Temp corrected) Arterial Blood HCO3 20.2 L Arterial Blood Base -4.0 L Excess Arterial Blood 95.5 Oxygen Saturation Domenico Test ACCEPTAB Arterial Blood Gas Right Radial Puncture Site Arterial 0.1 Blood Carboxyhemoglobi n Arterial Blood 0.1 Methemoglobin Blood Gas A-a O2 83.6 H Differential Oxyhemoglobin Percent 95.3 Blood Gas Temperature 37.0 Blood Gas Actual 30 Respiration Rate Blood Gas Modality VENT - CPAP FiO2 30.0 Blood Gas Low PEEP 5.0 Setting Blood Gas Pressure 10 Support Blood Gas Notified TM Whom Blood Gas Notified 09/14/2018 10:14:13 AM Time Urine Color YELLOW Urine Clarity SLIGHTLY CLOUDY A Urine pH 5.0 Urine Specific [place] 1.017 Urine Ketones NEGATIVE Urine Nitrite NEGATIVE Urine Bilirubin NEGATIVE Urine Urobilinogen NEGATIVE Urine Leukocyte NEGATIVE Esterase Urine Microscopic RBC 8 H Urine Microscopic WBC 2 Urine Bacteria FEW A Urine Hemoglobin 2+ H Urine Glucose NEGATIVE Urine Total Protein NEGATIVE Stool Occult Blood POSITIVE White Blood Count 11.6 H Red Blood Count 2.69 L Hemoglobin 8.2 L Hematocrit 26.1 L Mean Corpuscular 97.0 Volume Mean Corpuscular 30.5 Hemoglobin Mean Corpuscular 31.4 L Hemoglobin Concent Red Cell Distribution 14.9 H Width Platelet Count 112 L Mean Platelet Volume 12.7 H Immature Granulocytes 0.600 H % Neutrophils % 84.2 H Lymphocytes % 10.9 L Monocytes % 2.7 Eosinophils % 1.5 Basophils % 0.1 Nucleated Red Blood 0.0 Cells % Immature Granulocytes 0.070 H # Neutrophils # 9.8 H Lymphocytes # 1.3 Monocytes # 0.3 Eosinophils # 0.2 Basophils # 0.0 Nucleated Red Blood 0.0 Cells # Sodium Level 149 H Potassium Level 4.1 Chloride Level 123 H Carbon Dioxide Level 22 Anion Gap 4 L Blood Urea Nitrogen 100 H Creatinine 2.39 H Est Glomerular Filtrat Rate mL/min Glucose Level 105 Calcium Level 7.2 L Phosphorus Level 5.4 H Magnesium Level 2.5 Home Meds Reported Medications Losartan Potassium* (Losartan Potassium*) 50 Mg Tablet, 50 MG PO DAILY, TAB 08/29/18 Simvastatin (Simvastatin) 20 Mg Tablet, 20 MG PO QHS for 90 Days, #90 08/29/18 Furosemide* (Furosemide*) 40 Mg Tablet, 40 MG PO DAILY for 90 Days, #90 08/29/18 Potassium Chloride (K-Tab ER) 8 Meq Tablet.er, 8 MEQ PO BID for 90 Days, #180 08/29/18 Escitalopram Oxalate* (Escitalopram Oxalate*) 10 Mg Tablet, 20 MG PO DAILY for 90 Days, #90 08/29/18 Hydrocodone Bit-Acetaminophen (Hydrocodone Bit-APAP) 5-325MG Tablet, 1 TAB PO DAILY 08/29/18 Dexlansoprazole (Dexilant) 60 Mg Tree., 60 MG PO DAILY for 90 Days, #90 08/29/18 Amiodarone Hcl* (Amiodarone Hcl*) 200 Mg Tablet, 200 MG PO DAILY for 90 Days, #90 08/29/18 Alprazolam* (Alprazolam*) 0.5 Mg Tablet, 0.5 MG PO QHS for 30 Days, #30 08/29/18 Medications Current Medications IV Flush (NS 3 ml) 3 ml PER PROTOCOL IV ; Start 08/29/18 at 06:00 Ondansetron HCl (Zofran Inj) 4 mg Q6H PRN IV NAUSEA/VOMITING Last administered on 08/31/18at 05:02; Admin Dose 4 MG; Start 08/29/18 at 06:00 Acetaminophen (Tylenol Tab) 650 mg Q6H PRN PO .PAIN 1-3 OR TEMP; Start 08/29/18 at 06:00 Docusate Sodium (Colace) 100 mg Q12H PRN PO .CONSTIPATION Last administered on 08/30/18 21:37; Admin Dose 100 MG; Start 08/29/18 at 06:00 Magnesium Hydroxide (Milk Of Mag) 30 ml DAILY PRN PO .CONSTIPATION Last administered on 09/02/18 05:16; Admin Dose 30 ML; Start 08/29/18 at 06:00 Alprazolam (Xanax) 0.5 mg QHS PO Last administered on 09/14/18 20:43; Admin Dose 0.5 MG; Start 08/29/18 at 21:00 Escitalopram Oxalate (Lexapro) 20 mg DAILY PO Last administered on 09/14/18 10:29; Admin Dose 20 MG; Start 08/30/18 at 09:00 Docusate Sodium (Colace) 100 mg BID PO Last administered on 09/14/18 10:29; Admin Dose 100 MG; Start 08/31/18 at 13:30 Lorazepam (Ativan) 0.5 mg Q6H PRN PO ANXIETY; Start 09/02/18 at 13:00 Bisacodyl (Dulcolax Supp) 10 mg DAILY PRN [place] CONSTIPATION; Start 09/03/18 at 12:00 Heparin Sodium (Porcine) (Heparin (5000 Units/1ml)) 5,000 unit BID SC Last administered on 09/14/18 20:44; Admin Dose 5,000 UNIT; Start 09/03/18 at 14:00 Hydralazine HCl (Apresoline) 10 mg Q3 PRN IV ELEVATED SYSTOLIC BP Last administ ered on 09/05/18 19:48; Admin Dose 10 MG; Start 09/03/18 at 18:00 Albuterol/ Ipratropium (Duoneb) 3 ml Q2H RESP THERAPY PRN HHN SHORTNESS OF BREATH; Start 09/03/18 at 20:00 Lorazepam (Ativan) 1 mg Q6H PRN IV anxiety Last administered on 09/06/18 00:00; Admin Dose 1 MG; Start 09/05/18 at 09:00 Propofol 100 ml @ 2.509 mls/ hr Q12H IV Last administered on 09/14/18 06:57; Admin Dose 10.037 MLS/HR; Start 09/06/18 at 09:30 Lansoprazole (Prevacid) 30 mg DAILY@06 NGT Last administered on 09/15/18 05: 15; Admin Dose 30 MG; Start 09/07/18 at 06:00 Fentanyl 100 ml @ 2.5 mls/hr TITRATE IV Last administered on 09/07/18 09:19; Admin Dose 2.5 MLS/HR; Start 09/07/18 at 09:30 Fluconazole/ Sodium Chloride 50 ml @ 50 mls/hr Q24H IVPB Last administered on 09/14/18 11:46; Admin Dose 50 MLS/HR; Start 09/07/18 at 11:30 Multivitamins (Multivitamin) 30 ml DAILY NGT Last administered on 09/14/18 10:29; Admin Dose 30 ML; Start 09/07/18 at 14:30 Zinc Sulfate (Zinc Sulfate) 220 mg DAILY PO Last administered on 09/14/18 10:29; Admin Dose 220 MG; Start 09/07/18 at 14:30 Ascorbic Acid (Vitamin C) 500 mg DAILY NGT Last administered on 09/14/18 10:29; Admin Dose 500 MG; Start 09/07/18 at 14:30 Folic Acid (Folic Acid) 1 mg DAILY NGT Last administered on 09/14/18 10:29; Admin Dose 1 MG; Start 09/07/18 at 14:30 Petrolatum (Vaseline) APPLY TO MULTIPLE SC... BID TOP Last administered on 09/14/18 20:44; Admin Dose 1 EA; Start 09/08/18 at 09:00 Metronidazole (Flagyl) 500 mg Q8 PO Last administered on 09/15/18 05:14; Admin Dose 500 MG; Start 09/08/18 at 14:00 IV Flush (NS 10 ml) 10 ml PRN PRN IV FLUSH LINE; Start 09/09/18 at 11:30 Vancomycin HCl (Vancomycin Oral Syringe) 250 mg Q6 PO Last administered on 09/15/18 05:14; Admin Dose 250 MG; Start 09/10/18 at 12:00 Dexmedetomidine HCl 200 mcg/ Sodium Chloride 50 ml @ 4.18 mls/hr TITRATE IV Last administered on 09/15/18 05:34; Admin Dose 10.46 MLS/HR; Start 09/12/18 at 14:00 Valacyclovir HCl (Valtrex) 500 mg BID PO Last administered on 09/14/18 20:43; Admin Dose 500 MG; Start 09/12/18 at 14:00 Triamcinolone Acetonide (Kenalog 0.1% Cr) 1 applic BID TOP Last administered on 09/14/18 20:43; Admin Dose 1 APPLIC; Start 09/12/18 at 14:00 Lactobacillus Acidophilus/ Rhamnosus (Culturelle) 1 cap BID PO Last administered on 09/14/18 20:43; Admin Dose 1 CAP; Start 09/12/18 at 14:30 Sevelamer Carbonate (Renvela) 0.8 gm Q8H NGT Last administered on 09/15/18 05:14; Admin Dose 0.8 GM; Start 09/13/18 at 12:30 Vancomycin HCl (Vanco Iv Per Pharmacy) VANCOMYCIN PER PHARMACY PER PROTOCOL XX ; Start 09/13/18 at 19:00 Vancomycin HCl 1.5 gm/Sodium Chloride 250 ml @ 83.333 mls/ hr Q48H IVPB Last administered on 09/13/18 21:35; Admin Dose 83.333 MLS/HR; Start 09/13/18 at 21:00 Assessment/Plan Hospital Course (Demo Recall) 1. Marked sinus bradycardia: Appears to be asymptomatic and in sinus we will c ontinue to monitor. Probably at least partially related to sedation 2. Acute hypoxemic respiratory failure status post intubation on the vent 3. Pulmonary hypertension 4. History of proximal atrial fibrillation: currently has remained in normal sinus rhythm/sinus bradycardia 5. Hypertension 6. Urinary retention status post surgery 7. Pneumonia possible COPD possible ARDS 8. Acute renal failure Recommendations: off the amiodarone given his marked bradycardia as well as his significant pulmonary disease. Continue blood pressure control. Vent support will be continued managed as per pulmonary. weaning as tolerated Respiratory care to be continued. Continue with ICU care as long as patient is in the ventilator. Antibiotic management as per internal medicine consultants We will continue to monitor on telemetry thyroid management as per IM Antibiotic as per internal medicine Thank you for his referral. We will continue to follow along with you AMANDA DUNBAR MD [facility] AMANDA DUNBAR MD Sep 15, 2018 07:15
--- NOTE | 2018-09-15 08:51 | CONS ---
Assessment/Plan Assessment/Plan Assessment/Plan (Daily) Chest x-ray is pending from today. Patient is currently on Precedex 0.5 mics per kilogram per hour. Ventilator setting; SIMV of 10, tidal volume 500, pressure support of 10, PEEP of 5, 30% FiO2. Assessment and recommendations; 1. Patient admitted with severe bilateral pneumonia with marked interval radiological improvement. 2. Chronic stable renal insufficiency. 3. History of cardiac arrhythmia, patient remains in sinus rhythm. 4. Anemia. 5. Thrombocytopenia. 6. COPD. 7. 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 8. Failure to be weaned from ventilator despite multiple attempts. Consider stopping antibiotics. Patient reverted back to assist control mode because of tachypnea. Will likely need to have a tracheostomy performed. I am going to have a discussion with the patient's nephew today. Consultation Date/Type/Reason Admit Date/Time Aug 29, 2018 at 05:45 Initial Consult Date 08/30/18 Type of Consult Pulmonary Patient condition is tenuous. On BiPAP. Having significant chest congestion. Take slightly yellow-tinged secretions noted on suctioning. Patient requiring deep nasotracheal suctioning. General exam; elderly male, mildly lethargic. Requesting Provider: SERGIO TREVINO MD Date/Time of Note DATE: 09/15/18 TIME: 08:48 24 HR Interval Summary Free Text/Dictation Patient's condition is critical. Patient has failed multiple weaning trials from ventilator. Patient however has remained hemodynamically stable. General exam; elderly male, orally intubated, responsive, currently no distress. Exam/Review of Systems Exam Vitals Vital Signs Date Temp Pulse Resp B/P (MAP) Pulse Ox O2 O2 Flow FiO2 Time Delivery Rate 09/15/18 47 08:00 09/15/18 33 104/49 94 06:00 (67) 09/15/18 30 05:00 09/15/18 Mechanical 05:00 Ventilator 09/15/18 98.9 00:00 Intake and Output 09/14/18 09/14/18 09/15/18 1515:00 23:00 07:00 IntakeIntake Total 488 ml 833.945 ml 891.84 ml OutputOutput Total 560 ml 520 ml 338 ml BalanceBalance -72 ml 313.945 ml 553.84 ml Exam H EENT exam; supple neck, no JVD. No lymphadenopathy. Midline trachea. No thyromegaly. Orally intubated. Patient is edentulous. Pupils are small bilaterally. No neck masses. Orogastric tube in place. Chest exam; diminished but clear breath sounds. S1-S2 audible, no murmurs. Regular rhythm. Abdomen exam; soft, nondistended. No organomegaly. Bowel sounds are audible. Extremity exam; no peripheral edema. Patient does have patchy ecchymosis. [employer] exam; patient awake and responsive. Results Result Diagram: 09/15/18 0400 09/15/18 0400 Results 24hrs Laboratory Tests Test 09/14/18 09:00 09/14/18 17:00 09/15/18 04:00 Blood Gas Specimen Blood arterial Source Arterial Blood Date 09/14/2018 10:05:30 AM Drawn Arterial Blood pH 7.395 (Temp corrected) Arterial Blood pCO2 33.8 L (Temp correct) Arterial Blood pO2 90.6 H (Temp corrected) Arterial Blood HCO3 20.2 L Arterial Blood Base -4.0 L Excess Arterial Blood 95.5 Oxygen Saturation Domenico Test ACCEPTAB Arterial Blood Gas Right Radial Puncture Site Arterial 0.1 Blood Carboxyhemoglobi n Arterial Blood 0.1 Methemoglobin Blood Gas A-a O2 83.6 H Differential Oxyhemoglobin Percent 95.3 Blood Gas Temperature 37.0 Blood Gas Actual 30 Respiration Rate Blood Gas Modality VENT - CPAP FiO2 30.0 Blood Gas Low PEEP 5.0 Setting Blood Gas Pressure 10 Support Blood Gas Notified TM Whom Blood Gas Notified 09/14/2018 10:14:13 AM Time Urine Color YELLOW Urine Clarity SLIGHTLY CLOUDY A Urine pH 5.0 Urine Specific [place] 1.017 Urine Ketones NEGATIVE Urine Nitrite NEGATIVE Urine Bilirubin NEGATIVE Urine Urobilinogen NEGATIVE Urine Leukocyte NEGATIVE Esterase Urine Microscopic RBC 8 H Urine Microscopic WBC 2 Urine Bacteria FEW A Urine Hemoglobin 2+ H Urine Glucose NEGATIVE Urine Total Protein NEGATIVE Stool Occult Blood POSITIVE White Blood Count 11.6 H Red Blood Count 2.69 L Hemoglobin 8.2 L Hematocrit 26.1 L Mean Corpuscular 97.0 Volume Mean Corpuscular 30.5 Hemoglobin Mean Corpuscular 31.4 L Hemoglobin Concent Red Cell Distribution 14.9 H Width Platelet Count 112 L Mean Platelet Volume 12.7 H Immature Granulocytes 0.600 H % Neutrophils % 84.2 H Lymphocytes % 10.9 L Monocytes % 2.7 Eosinophils % 1.5 Basophils % 0.1 Nucleated Red Blood 0.0 Cells % Immature Granulocytes 0.070 H # Neutrophils # 9.8 H Lymphocytes # 1.3 Monocytes # 0.3 Eosinophils # 0.2 Basophils # 0.0 Nucleated Red Blood 0.0 Cells # Sodium Level 149 H Potassium Level 4.1 Chloride Level 123 H Carbon Dioxide Level 22 Anion Gap 4 L Blood Urea Nitrogen 100 H Creatinine 2.39 H Est Glomerular Filtrat Rate mL/min Glucose Level 105 Calcium Level 7.2 L Phosphorus Level 5.4 H Magnesium Level 2.5 Medications Medication Current Medications IV Flush (NS 3 ml) 3 ml PER PROTOCOL IV ; Start 08/29/18 at 06:00 Ondansetron HCl (Zofran Inj) 4 mg Q6H PRN IV NAUSEA/VOMITING Last administered on 08/31/18at 05:02; Admin Dose 4 MG; Start 08/29/18 at 06:00 Acetaminophen (Tylenol Tab) 650 mg Q6H PRN PO .PAIN 1-3 OR TEMP; Start 08/29/18 at 06:00 Docusate Sodium (Colace) 100 mg Q12H PRN PO .CONSTIPATION Last administered on 08/30/18at 21:37; Admin Dose 100 MG; Start 08/29/18 at 06:00 Magnesium Hydroxide (Milk Of Mag) 30 ml DAILY PRN PO .CONSTIPATION Last administered on 09/02/18at 05:16; Admin Dose 30 ML; Start 08/29/18 at 06:00 Alprazolam (Xanax) 0.5 mg QHS PO Last administered on 09/14/18at 20:43; Admin Dose 0.5 MG; Start 08/29/18 at 21:00 Escitalopram Oxalate (Lexapro) 20 mg DAILY PO Last administered on 09/14/18 10:29; Admin Dose 20 MG; Start 08/30/18 at 09:00 Docusate Sodium (Colace) 100 mg BID PO Last administered on 09/14/18 10:29; Admin Dose 100 MG; Start 08/31/18 at 13:30 Lorazepam (Ativan) 0.5 mg Q6H PRN PO ANXIETY; Start 09/02/18 at 13:00 Bisacodyl (Dulcolax Supp) 10 mg DAILY PRN [place] CONSTIPATION; Start 09/03/18 at 12:00 Heparin Sodium (Porcine) (Heparin (5000 Units/1ml)) 5,000 unit BID SC Last administered on 09/14/18at 20:44; Admin Dose 5,000 UNIT; Start 09/03/18 at 14:00 Hydralazine HCl (Apresoline) 10 mg Q3 PRN IV ELEVATED SYSTOLIC BP Last administered on 09/05/18at 19:48; Admin Dose 10 MG; Start 09/03/18 at 18:00 Albuterol/ Ipratropium (Duoneb) 3 ml Q2H RESP THERAPY PRN HHN SHORTNESS OF BREATH; Start 09/03/18 at 20:00 Lorazepam (Ativan) 1 mg Q6H PRN IV anxiety Last administered on 09/06/18at 00:00; Admin Dose 1 MG; Start 09/05/18 at 09:00 Propofol 100 ml @ 2.509 mls/ hr Q12H IV Last administered on 09/14/18at 06:57; Admin Dose 10.037 MLS/HR; Start 09/06/18 at 09:30 Lansoprazole (Prevacid) 30 mg DAILY@06 NGT Last administered on 09/15/18at 05:15; Admin Dose 30 MG; Start 09/07/18 at 06:00 Fentanyl 100 ml @ 2.5 mls/hr TITRATE IV Last administered on 09/07/18at 09:19; Admin Dose 2.5 MLS/HR; Start 09/07/18 at 09:30 Fluconazole/ Sodium Chloride 50 ml @ 50 mls/hr Q24H IVPB Last administered on 09/14/18at 11:46; Admin Dose 50 MLS/HR; Start 09/07/18 at 11:30 Multivitamins (Multivitamin) 30 ml DAILY NGT Last administered on 09/14/18 10:29; Admin Dose 30 ML; Start 09/07/18 at 14:30 Zinc Sulfate (Zinc Sulfate) 220 mg DAILY PO Last administered on 09/14/18at 10:29; Admin Dose 220 MG; Start 09/07/18 at 14:30 Ascorbic Acid (Vitamin C) 500 mg DAILY NGT Last administered on 09/14/18at 10:29; Admin Dose 500 MG; Start 09/07/18 at 14:30 Folic Acid (Folic Acid) 1 mg DAILY NGT Last administered on 09/14/18 10:29; Admin Dose 1 MG; Start 09/07/18 at 14:30 Petrolatum (Vaseline) APPLY TO MULTIPLE SC... BID TOP Last administered on 09/14/18 20:44; Admin Dose 1 EA; Start 09/08/18 at 09:00 Metronidazole (Flagyl) 500 mg Q8 PO Last administered on 09/15/18 05:14; Admin Dose 500 MG; Start 09/08/18 at 14:00 IV Flush (NS 10 ml) 10 ml PRN PRN IV FLUSH LINE; Start 09/09/18 at 11:30 Vancomycin HCl (Vancomycin Oral Syringe) 250 mg Q6 PO Last administered on 09/15/18 05:14; Admin Dose 250 MG; Start 09/10/18 at 12:00 Dexmedetomidine HCl 200 mcg/ Sodium Chloride 50 ml @ 4.18 mls/hr TITRATE IV L ast administered on 09/15/18 05:34; Admin Dose 10.46 MLS/HR; Start 09/12/18 at 14:00 Valacyclovir HCl (Valtrex) 500 mg BID PO Last administered on 09/14/18 20:43; Admin Dose 500 MG; Start 09/12/18 at 14:00 Triamcinolone Acetonide (Kenalog 0.1% Cr) 1 applic BID TOP Last administered on 09/14/18 20:43; Admin Dose 1 APPLIC; Start 09/12/18 at 14:00 Lactobacillus Acidophilus/ Rhamnosus (Culturelle) 1 cap BID PO Last administered on 09/14/18 20:43; Admin Dose 1 CAP; Start 09/12/18 at 14:30 Sevelamer Carbonate (Renvela) 0.8 gm Q8H NGT Last administered on 09/15/18 05:14; Admin Dose 0.8 GM; Start 09/13/18 at 12:30 Vancomycin HCl (Vanco Iv Per Pharmacy) VANCOMYCIN PER PHARMACY PER PROTOCOL XX ; Start 09/13/18 at 19:00 Vancomycin HCl 1.5 gm/Sodium Chloride 250 ml @ 83.333 mls/ hr Q48H IVPB Last administered on 09/13/18 21:35; Admin Dose 83.333 MLS/HR; Start 09/13/18 at 21:00 JUDE GODINEZ 18, 2019 08:51
[2018-09-15] MEDS: DOCUSATE SODIUM 100 MG CAP PO SCH ×2 (09:00→20:49)
[2018-09-15] MEDS: PROPOFOL 100 ML IV SCH ×2 (09:30→20:50)
[2018-09-15] MEDS: valACYclovir 500 MG TAB PO SCH ×2 (10:29→20:48)
[2018-09-15] MEDS: MULTIVITAMINS 30 ML CUP NGT SCH (10:29)
[2018-09-15] MEDS: LACTOBACILLUS RHAMNOSUS CAP PO SCH ×2 (10:29→20:48)
[2018-09-15] MEDS: ESCITALOPRAM 10 MG TAB PO SCH (10:29)
[2018-09-15] MEDS: ASCORBIC ACID 500 MG TAB NGT SCH (10:30)
[2018-09-15] MEDS: FOLIC ACID 1 MG TAB NGT SCH (10:30)
[2018-09-15] MEDS: ZINC SULFATE 220 MG CAP PO SCH (10:30)
[2018-09-15] MEDS: HEPARIN 5,000 UNIT/1 ML VIAL SC SCH ×2 (10:31→20:50)
[2018-09-15] MEDS: BALSAM PERU/CASTOR OIL 60 GM TUBE TOP SCH ×2 (10:33→20:49)
[2018-09-15] MEDS: TRIAMCINOLONE ACET 0.1% 15 GM CR TOP SCH ×2 (10:33→20:49)
[2018-09-15] MEDS: PETROLATUM 5 GM OINT TOP SCH ×2 (10:34→20:49)
[2018-09-15] MEDS ORDERED: SOD CHLORIDE 0.9% 250 ML IV* ONE (10:42)
[2018-09-15] MEDS: FLUCONAZOLE 100 MG/50 ML (PMX) 50 ML IVPB SCH (11:55)
--- NOTE | 2018-09-15 13:24 | CONS ---
Assessment/Plan Assessment/Plan Hospital Course (Demo Recall) No events, comfortable on vent, no fevers Microbiology: Blood culture repeated 2 days ago grew staph species 1 out of 2 sets Antimicrobials: Flagyl, oral/IV vancomycin, fluconazole,Valtrex Indwelling's: Endotracheal tube NG tube Mcgowan catheter Physical examination: Well-developed well-nourished elderly man who is awake in no distress. Head atraumatic normocephalic sclera nonicteric vehicle mucosa dry neck is supple chest rise symmetrical breath sounds with bilateral rhonchi. Heart: S1-S2. Abdomen soft bowel sounds present. Assessment: 1. Acute hypoxemic respiratory failure 2. Resolved pneumonia 3. CHF 4. Bradycardia 5. Acute kidney injury 6. Diarrhea 7. Leukocytosis, likely steroid-induced versus leukemoid reaction, resolving 8. Mouth lesions, on empiric Valtrex 9. Staph bacteremia cw contaminant Plan: Patient remains stable, pulmonary rec-s noted, dc abx, continue PO Vanco and Valtrex DW son at bedside Consultation Date/Type/Reason Admit Date/Time Aug 29, 2018 at 05:45 Initial Consult Date 08/30/18 Type of Consult id Requesting Provider: SERGIO TREVINO MD Date/Time of Note DATE: 09/15/18 TIME: 13:23 Exam/Review of Systems Exam Vitals Vital Signs Date Temp Pulse Resp B/P (MAP) Pulse Ox O2 O2 Flow FiO2 Time Delivery Rate 09/15/18 51 12:00 09/15/18 20 114/48 97 Mechanical 09:30 (70) Ventilator 09/15/18 30 08:00 09/15/18 98.1 08:00 Intake and Output 09/14/18 09/14/18 09/15/18 1515:00 23:00 07:00 IntakeIntake Total 488 ml 833.945 ml 951.84 ml OutputOutput Total 560 ml 520 ml 378 ml BalanceBalance -72 ml 313.945 ml 573.84 ml Results Result Diagram: 09/15/18 0400 09/15/18 0400 Results 24hrs Laboratory Tests Test 09/14/18 17:00 09/15/18 04:00 Urine Color YELLOW Urine Clarity SLIGHTLY CLOUDY A Urine pH 5.0 Urine Specific [place] 1.017 Urine Ketones NEGATIVE Urine Nitrite NEGATIVE Urine Bilirubin NEGATIVE Urine Urobilinogen NEGATIVE Urine Leukocyte Esterase NEGATIVE Urine Microscopic RBC 8 H Urine Microscopic WBC 2 Urine Bacteria FEW A Urine Hemoglobin 2+ H Urine Glucose NEGATIVE Urine Total Protein NEGATIVE Stool Occult Blood POSITIVE White Blood Count 11.6 H Red Blood Count 2.69 L Hemoglobin 8.2 L Hematocrit 26.1 L Mean Corpuscular Volume 97.0 Mean Corpuscular Hemoglobin 30.5 Mean Corpuscular Hemoglobin Concent 31.4 L Red Cell Distribution Width 14.9 H Platelet Count 112 L Mean Platelet Volume 12.7 H Immature Granulocytes % 0.600 H Neutrophils % 84.2 H Lymphocytes % 10.9 L Monocytes % 2.7 Eosinophils % 1.5 Basophils % 0.1 Nucleated Red Blood Cells % 0.0 Immature Granulocytes # 0.070 H Neutrophils # 9.8 H Lymphocytes # 1.3 Monocytes # 0.3 Eosinophils # 0.2 Basophils # 0.0 Nucleated Red Blood Cells # 0.0 Sodium Level 149 H Potassium Level 4.1 Chloride Level 123 H Carbon Dioxide Level 22 Anion Gap 4 L Blood Urea Nitrogen 100 H Creatinine 2.39 H Est Glomerular Filtrat Rate mL/min Glucose Level 105 Calcium Level 7.2 L Phosphorus Level 5.4 H Magnesium Level 2.5 Medications Medication Current Medications IV Flush (NS 3 ml) 3 ml PER PROTOCOL IV ; Start 08/29/18 at 06:00 Ondansetron HCl (Zofran Inj) 4 mg Q6H PRN IV NAUSEA/VOMITING Last administered on 08/31/18at 05:02; Admin Dose 4 MG; Start 08/29/18 at 06:00 Acetaminophen (Tylenol Tab) 650 mg Q6H PRN PO .PAIN 1-3 OR TEMP; Start 08/29/18 at 06:00 Docusate Sodium (Colace) 100 mg Q12H PRN PO .CONSTIPATION Last administered on 08/30/18at 21:37; Admin Dose 100 MG; Start 08/29/18 at 06:00 Magnesium Hydroxide (Milk Of Mag) 30 ml DAILY PRN PO .CONSTIPATION Last administered on 09/02/18at 05:16; Admin Dose 30 ML; Start 08/29/18 at 06:00 Alprazolam (Xanax) 0.5 mg QHS PO Last administered on 09/14/18at 20:43; Admin Dose 0.5 MG; Start 08/29/18 at 21:00 Escitalopram Oxalate (Lexapro) 20 mg DAILY PO Last administered on 09/15/18 10:29; Admin Dose 20 MG; Start 08/30/18 at 09:00 Docusate Sodium (Colace) 100 mg BID PO Last administered on 09/14/18 10:29; Admin Dose 100 MG; Start 08/31/18 at 13:30 Lorazepam (Ativan) 0.5 mg Q6H PRN PO ANXIETY; Start 09/02/18 at 13:00 Bisacodyl (Dulcolax Supp) 10 mg DAILY PRN [place] CONSTIPATION; Start 09/03/18 at 12:00 Heparin Sodium (Porcine) (Heparin (5000 Units/1ml)) 5,000 unit BID SC Last administered on 09/15/18 10:31; Admin Dose 5,000 UNIT; Start 09/03/18 at 14:00 Hydralazine HCl (Apresoline) 10 mg Q3 PRN IV ELEVATED SYSTOLIC BP Last administered on 09/05/18 19:48; Admin Dose 10 MG; Start 09/03/18 at 18:00 Albuterol/ Ipratropium (Duoneb) 3 ml Q2H RESP THERAPY PRN HHN SHORTNESS OF BREATH; Start 09/03/18 at 20:00 Lorazepam (Ativan) 1 mg Q6H PRN IV anxiety Last administered on 09/06/18at 00:00; Admin Dose 1 MG; Start 09/05/18 at 09:00 Propofol 100 ml @ 2.509 mls/ hr Q12H IV Last administered on 09/14/18 06:57; Admin Dose 10.037 MLS/HR; Start 09/06/18 at 09:30 Fentanyl 100 ml @ 2.5 mls/hr TITRATE IV Last administered on 09/07/18 09:19; Admin Dose 2.5 MLS/HR; Start 09/07/18 at 09:30 Fluconazole/ Sodium Chloride 50 ml @ 50 mls/hr Q24H IVPB Last administered on 09/15/18 11:55; Admin Dose 50 MLS/HR; Start 09/07/18 at 11:30 Multivitamins (Multivitamin) 30 ml DAILY NGT Last administered on 09/15/18at 10:29; Admin Dose 30 ML; Start 09/07/18 at 14:30 Zinc Sulfate (Zinc Sulfate) 220 mg DAILY PO Last administered on 09/15/18 10:30; Admin Dose 220 MG; Start 09/07/18 at 14:30 Ascorbic Acid (Vitamin C) 500 mg DAILY NGT Last administered on 09/15/18 10:30; Admin Dose 500 MG; Start 09/07/18 at 14:30 Folic Acid (Folic Acid) 1 mg DAILY NGT Last administered on 09/15/18 10:30; Admin Dose 1 MG; Start 09/07/18 at 14:30 Petrolatum (Vaseline) APPLY TO MULTIPLE SC... BID TOP Last administered on 09/15/18 10:34; Admin Dose 1 EA; Start 09/08/18 at 09:00 Metronidazole (Flagyl) 500 mg Q8 PO Last administered on 09/15/18 05:14; Admin Dose 500 MG; Start 09/08/18 at 14:00 IV Flush (NS 10 ml) 10 ml PRN PRN IV FLUSH LINE; Start 09/09/18 at 11:30 Vancomycin HCl (Vancomycin Oral Syringe) 250 mg Q6 PO Last administered on 09/15/18 11:58; Admin Dose 250 MG; Start 09/10/18 at 12:00 Dexmedetomidine HCl 200 mcg/ Sodium Chloride 50 ml @ 4.18 mls/hr TITRATE IV Last administered on 09/15/18 05:34; Admin Dose 10.46 MLS/HR; Start 09/12/18 at 14:00 Valacyclovir HCl (Valtrex) 500 mg BID PO Last administered on 09/15/18 10:29; Admin Dose 500 MG; Start 09/12/18 at 14:00 Triamcinolone Acetonide (Kenalog 0.1% Cr) 1 applic BID TOP Last administered on 09/15/18 10:33; Admin Dose 1 APPLIC; Start 09/12/18 at 14:00 Lactobacillus Acidophilus/ Rhamnosus (Culturelle) 1 cap BID PO Last administered on 09/15/18 10:29; Admin Dose 1 CAP; Start 09/12/18 at 14:30 Sevelamer Carbonate (Renvela) 0.8 gm Q8H NGT Last administered on 09/15/18 11:57; Admin Dose 0.8 GM; Start 09/13/18 at 12:30 Vancomycin HCl (Vanco Iv Per Pharmacy) VANCOMYCIN PER PHARMACY PER PROTOCOL XX ; Start 09/13/18 at 19:00 Vancomycin HCl 1.5 gm/Sodium Chloride 250 ml @ 83.333 mls/ hr Q48H IVPB Last administered on 09/13/18at 21:35; Admin Dose 83.333 MLS/HR; Start 09/13/18 at 21:00 Lansoprazole (Prevacid) 30 mg BID@0600,1800 NGT ; Start 09/15/18 at 18:00 TAYLOR RIZZO NP Sep 15, 2018 13:24
--- NOTE | 2018-09-15 14:25 | PN ---
DATE: 09/15/2018 SUBJECTIVE: The patient remains in serious condition on full ventilatory support. The patient's uri nary output has been marginal. No other events noted. No hemoptysis, hematemesis or hematochezia. OBJECTIVE: VITAL SIGNS: Blood pressure is 114/48, respirations 20, pulse 60, temperature 98.6. HEENT: Head is normocephalic. NECK: Supple. HEART: Regular rate. LUNGS: Show diminished breath sounds at the base. ABDOMEN: Soft, nontender to palpation without rebound or guarding. EXTREMITIES: Negative for clubbing, cyanosis, no edema. DERMATOLOGIC: No rashes. MUSCULOSKELETAL: No joint effusion. NEUROLOGIC: No change in exam. MEDICATIONS: Have been reviewed. LABORATORY DATA: Has been reviewed. IMAGING STUDIES: Have been reviewed. MICROBIOLOGY: Reviewed. ASSESSMENT AND PLAN: 1. Nonoliguric acute kidney injury on top of chronic kidney disease with unknown baseline creatinine . Etiology of acute kidney injury is secondary to hemodynamics, tubular injury. The patient's renal function is fluctuating. At this point, continue current treatment plan, supportive care, renally d ose all meds. Would continue holding diuretic therapy. No immediate need for renal replacement ther apy. 2. Hypernatremia. The patient has a free water deficit approximately 3 liters. Will increase free water flushes to 300 mL q.4h. Sodium level slowly improving. 3. Anemia. Monitor hemoglobin and hematocrit levels. 4. Mineral bone disorder, monitor calcium and phosphorus levels. 5. Ventilator-dependent respiratory failure. Vent settings and ABG was reviewed. Continue to monit or. Follow up with pulmonary. 6. Sepsis secondary to pneumonia. Continue current antibiotic regimen. 7. Acute encephalopathy, etiology is toxic metabolic. Continue to monitor. 8. History of diastolic heart failure. Monitor I's and O's closely. Give intermittent diuretic the rapy as needed. 9. Diarrhea. Continue Flagyl. 10. Benign prostatic hypertrophy. Continue medical management. Dictated By: ANGELA ROSENTHAL/NTS Conf#: [id number] DID#: [id number] CC: SERGIO TREVINO MD;*EndCC*
--- NOTE | 2018-09-15 20:09 | CONS ---
DATE OF ADMISSION: 08/29/2018 DATE OF CONSULTATION: 09/15/2018 TYPE OF CONSULTATION: Gastrointestinal consult. REFERRING PHYSICIAN: Dr. Sergio Washington REASON FOR CONSULTATION: Anemia and GI bleeding. HISTORY OF PRESENT ILLNESS: An 87-year-old [place]er male with a history of hypertension, atrial fibr illation, with a history of prostate surgery was brought into the emergency room for a fever, cough a nd shortness of breath. In the ER, he was evaluated, had a chest x-ray done. The patient was found to have pneumonia and was started on Rocephin and azithromycin. Patient required intubation. They c ould not extubate the patient, 2 to 3 times attempt was made to wean him off the vent. GI consult wa s called as there was a significant drop in hematocrit from 34 to 26 and the stool was dark in color and positive for blood. The patient has no history of GI bleeding in the past. No abdominal pain. No nausea, no vomiting. All this information gathered from the daughter who was by the side of the p atient. 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 ALLERGIES: No drug allergies. SOCIAL HISTORY: Is , used tobacco in the past for 30 years. No alcohol, no IV drug use. PAST SURGICAL HISTORY: Suprapubic catheter at [facility] 3 weeks ago. FAMILY HISTORY: Both the parents in their 70s. MEDICATIONS: He was on: 1. Eliquis. 2. Losartan. 3. Simvastatin. 4. Lexapro. 5. [place]. 6. Lasix. 7. Dexilant. PHYSICAL EXAMINATION VITAL SIGNS: Stable. HEENT: Unremarkable. NECK: Supple, no thyromegaly, no lymphadenopathy. CARDIOVASCULAR: No murmur or gallop. LUNGS: Air entry diminished at both the bases, patient was on vent. ABDOMEN: Benign. EXTREMITIES: No edema. CENTRAL NERVOUS SYSTEM: The patient is not sedated. Patient is still lethargic though he is off pro pofol. IMPRESSION 1. Anemia with dark color stool and positive stool guaiac, most probably related to GI bleeding. 2. Renal insufficiency, which is stable. 3. Respiratory failure from the pneumonia, bilateral, ____ on vent. 4. Chronic obstructive pulmonary disease. 5. Critical care myopathy. 6. Status post surgery for the prostate and suprapubic catheter. 7. Multiple wounds. 8. The patient's 2D echocardiogram shows a 65% ejection fraction. Normal mitral and aortic valve. His hematocrit is 26, platelet count is 112. BUN is 100, creatinine is 2.39, INR is 1.3. PLAN: Continue PPI, will monitor H and H and transfuse on an as needed basis. Will cut down on the vancomycin. He is getting both vancomycin and oral Flagyl. Will cut down the vancomycin to 125 mg t .i.d. C. difficile was reported negative. No anticoagulant. I have discussed the case with the carmen franklin for a possible EGD. She understood and has agreed for the procedure. In the interim, continue present care. Dictated By: TOOTIE HERNANDEZ MD PJ/NTS Conf#: [id number] DID#: [id number] CC: SERGIO WASHINGTON MD;*EndCC*
[2018-09-15] MEDS: ALPRAZOLAM 0.5 MG TAB PO SCH (21:04)
[2018-09-16] VITALS (53 sets, daily range): BP systolic 97–135; BP diastolic 41–59; PULSE 36–56; RESP 15–34
[2018-09-16] MEDS: VANCOMYCIN HCL 250 MG/5ML POSYG PO SCH ×4 (00:06→18:08)
[2018-09-16] MEDS: DEXMEDETOMIDINE HCL 200 MCG in SOD CHLORIDE 0.9% 48 ML IV SCH ×3 (00:07→07:15)
[2018-09-16] MEDS: SEVELAMER CARBONATE 0.8 GM PKT NGT SCH ×3 (04:32→20:34)
[2018-09-16] MEDS: LANSOPRAZOLE 30 MG CAP NGT SCH ×2 (05:53→18:08)
--- NOTE | 2018-09-16 06:02 | CONS ---
Consult Date/Type/Reason Admit Date/Time Aug 29, 2018 at 05:45 Initial Consult Date 09/07/18 Type of Consultation: cv Requesting Provider: SERGIO TREVINO MD Date/Time of Note DATE: 09/16/18 TIME: 06:00 Subjective Interventional cardiology follow-up progress note Subjective: Case discussed with the staff and telemetry was reviewed. Patient has remained sinus rhythm /. sinus bradycardia. No long pauses reported. No significant other arrhythmias reported. no afib Patient remains intubated on the vent in the ICU nonverbal. min secretions per staff + Diarrhea O General: Elderly gentleman. Status post intubation on the vent HEENT: NC/AT. pupils are equal. round. NECK: NO JVD. no stridor. CV: RRR. systolic murmur; no gallop or rubs. PULM: no wheezing + rhonchi. GI: SOFT, NT, ND, no rebound or guarding Extremity: trace B/L LE edema. no clubbing. neuro: sedated Psych: calm rectal: deferred EKG normal sinus rhythm Chest x-ray on admission showed: 1. Right basilar interstitial opacities, new from the prior examination from a few hours prior, likely reflecting atelectasis. 2. Mild prominence of the interstitial markings, may reflect mild underlying interstitial edema or chronic lung changes. 3. Mild cardiomegaly and aortic atherosclerosis. Chest x-ray done on 09/06/2018 shows: 1. Atherosclerosis of the thoracic aorta. 2. Persistent bilateral pulmonary infiltrates which could represent infection or non infection related edema or combination of the 2. 3. Endotracheal and nasogastric tubes in place. Echocardiogram done on 08/29/2018 which was personally reviewed shows: There is mild to mod enlargement of left atrium. Normal left ventricular systolic function. Normal left ventricular cavity size. Normal left ventricular wall thickness. Ejection fraction is visually estimated at 60-65 %. Normal appearance of the mitral valve. Mild mitral valve regurgitation. Normal appearance of the aortic valve. No aortic regurgitation. Normal appearance of the tricuspid valve. The estimated Peak RVSP is 53 mmHg. There is mild tricuspid regurgitation. The IVC is not well visualized. Objective Vitals Vital Signs Date Temp Pulse Resp B/P (MAP) Pulse Ox O2 O2 Flow FiO2 Time Delivery Rate 09/16/18 52 20 98 30 04:50 09/16/18 101/47 00:45 (65) 09/16/18 98.4 Mechanical 00:00 Ventilator Intake and Output 09/15/18 09/15/18 09/16/18 1515:00 23:00 07:00 IntakeIntake Total 740 ml 1852.30 ml 60.46 ml OutputOutput Total 340 ml 510 ml 50 ml BalanceBalance 400 ml 1342.30 ml 10.46 ml Results/Medications Result Diagram: 09/16/18 0445 09/16/18 0445 Results 24 hrs Laboratory Tests Test 09/16/18 04:45 09/16/18 04:45 White Blood Count 9.8 Red Blood Count 2.97 L Hemoglobin 9.2 L Hematocrit 28.8 L Mean Corpuscular Volume 97.0 Mean Corpuscular Hemoglobin 31.0 Mean Corpuscular Hemoglobin Concent 31.9 L Red Cell Distribution Width 15.0 H Platelet Count 114 L Mean Platelet Volume 12.5 H Immature Granulocytes % 0.400 Neutrophils % 81.0 H Lymphocytes % 14.5 L Monocytes % 2.7 Eosinophils % 1.3 Basophils % 0.1 Nucleated Red Blood Cells % 0.0 Immature Granulocytes # 0.040 H Neutrophils # 7.9 H Lymphocytes # 1.4 Monocytes # 0.3 Eosinophils # 0.1 Basophils # 0.0 Nucleated Red Blood Cells # 0.0 Sodium Level 148 H Potassium Level 4.3 Chloride Level 122 H Carbon Dioxide Level 21 Anion Gap 5 Blood Urea Nitrogen 95 H Creatinine 2.33 H Est Glomerular Filtrat Rate mL/min Glucose Level 113 Calcium Level 7.4 L Phosphorus Level 4.9 Magnesium Level 2.4 Lab Scanned Report BLOOD TRANSFUSION Home Meds Reported Medications Losartan Potassium* (Losartan Potassium*) 50 Mg Tablet, 50 MG PO DAILY, TAB 08/29/18 Simvastatin (Simvastatin) 20 Mg Tablet, 20 MG PO QHS for 90 Days, #90 08/29/18 Furosemide* (Furosemide*) 40 Mg Tablet, 40 MG PO DAILY for 90 Days, #90 08/29/18 Potassium Chloride (K-Tab ER) 8 Meq Tablet.er, 8 MEQ PO BID for 90 Days, #180 08/29/18 Escitalopram Oxalate* (Escitalopram Oxalate*) 10 Mg Tablet, 20 MG PO DAILY for 90 Days, #90 08/29/18 Hydrocodone Bit-Acetaminophen (Hydrocodone Bit-APAP) 5-325MG Tablet, 1 TAB PO DAILY 08/29/18 Dexlansoprazole (Dexilant) 60 Mg Tree., 60 MG PO DAILY for 90 Days, #90 08/29/18 Amiodarone Hcl* (Amiodarone Hcl*) 200 Mg Tablet, 200 MG PO DAILY for 90 Days, #90 08/29/18 Alprazolam* (Alprazolam*) 0.5 Mg Tablet, 0.5 MG PO QHS for 30 Days, #30 08/29/18 Medications Current Medications IV Flush (NS 3 ml) 3 ml PER PROTOCOL IV ; Start 08/29/18 at 06:00 Ondansetron HCl (Zofran Inj) 4 mg Q6H PRN IV NAUSEA/VOMITING Last administered on 08/31/18at 05:02; Admin Dose 4 MG; Start 08/29/18 at 06:00 Acetaminophen (Tylenol Tab) 650 mg Q6H PRN PO .PAIN 1-3 OR TEMP; Start 08/29/18 at 06:00 Docusate Sodium (Colace) 100 mg Q12H PRN PO .CONSTIPATION Last administered on 08/30/18at 21:37; Admin Dose 100 MG; Start 08/29/18 at 06:00 Magnesium Hydroxide (Milk Of Mag) 30 ml DAILY PRN PO .CONSTIPATION Last administered on 09/02/18at 05:16; Admin Dose 30 ML; Start 08/29/18 at 06:00 Alprazolam (Xanax) 0.5 mg QHS PO Last administered on 09/15/18at 21:04; Admin Dose 0.5 MG; Start 08/29/18 at 21:00 Escitalopram Oxalate (Lexapro) 20 mg DAILY PO Last administered on 09/15/18at 10:29; Admin Dose 20 MG; Start 08/30/18 at 09:00 Docusate Sodium (Colace) 100 mg BID PO Last administered on 09/15/18at 20:49; Admin Dose 100 MG; Start 08/31/18 at 13:30 Lorazepam (Ativan) 0.5 mg Q6H PRN PO ANXIETY; Start 09/02/18 at 13:00 Bisacodyl (Dulcolax Supp) 10 mg DAILY PRN [place] CONSTIPATION; Start 09/03/18 at 12:00 Heparin Sodium (Porcine) (Heparin (5000 Units/1ml)) 5,000 unit BID SC Last administered on 09/15/18 10:31; Admin Dose 5,000 UNIT; Start 09/03/18 at 14:00 Hydralazine HCl (Apresoline) 10 mg Q3 PRN IV ELEVATED SYSTOLIC BP Last administered on 09/05/18 19:48; Admin Dose 10 MG; Start 09/03/18 at 18:00 Albuterol/ Ipratropium (Duoneb) 3 ml Q2H RESP THERAPY PRN HHN SHORTNESS OF BREATH; Start 09/03/18 at 20:00 Lorazepam (Ativan) 1 mg Q6H PRN IV anxiety Last administered on 09/06/18 00:00; Admin Dose 1 MG; Start 09/05/18 at 09:00 Propofol 100 ml @ 2.509 mls/ hr Q12H IV Last administered on 09/14/18 06:57; Admin Dose 10.037 MLS/HR; Start 09/06/18 at 09:30 Fentanyl 100 ml @ 2.5 mls/hr TITRATE IV Last administered on 09/07/18 09:19; Admin Dose 2.5 MLS/HR; Start 09/07/18 at 09:30 Multivitamins (Multivitamin) 30 ml DAILY NGT Last administered on 09/15/18 10:29; Admin Dose 30 ML; Start 09/07/18 at 14:30 Zinc Sulfate (Zinc Sulfate) 220 mg DAILY PO Last administered on 09/15/18 10:30; Admin Dose 220 MG; Start 09/07/18 at 14:30 Ascorbic Acid (Vitamin C) 500 mg DAILY NGT Last administered on 09/15/18 10:30; Admin Dose 500 MG; Start 09/07/18 at 14:30 Folic Acid (Folic Acid) 1 mg DAILY NGT Last administered on 09/15/18 10:30; Admin Dose 1 MG; Start 09/07/18 at 14:30 Petrolatum (Vaseline) APPLY TO MULTIPLE SC... BID TOP Last administered on 09/15/18 20:49; Admin Dose 1 EA; Start 09/08/18 at 09:00 IV Flush (NS 10 ml) 10 ml PRN PRN IV FLUSH LINE; Start 09/09/18 at 11:30 Vancomycin HCl (Vancomycin Oral Syringe) 250 mg Q6 PO Last administered on 09/16/18 05:53; Admin Dose 250 MG; Start 09/10/18 at 12:00 Dexmedetomidine HCl 200 mcg/ Sodium Chloride 50 ml @ 4.18 mls/hr TITRATE IV Last administered on 09/16/18 04:35; Admin Dose 10.46 MLS/HR; Start 09/12/18 at 14:00 Valacyclovir HCl (Valtrex) 500 mg BID PO Last administered on 09/15/18 20:48; Admin Dose 500 MG; Start 09/12/18 at 14:00 Triamcinolone Acetonide (Kenalog 0.1% Cr) 1 applic BID TOP Last administered on 09/15/18 20:49; Admin Dose 1 APPLIC; Start 09/12/18 at 14:00 Lactobacillus Acidophilus/ Rhamnosus (Culturelle) 1 cap BID PO Last administered on 09/15/18 20:48; Admin Dose 1 CAP; Start 09/12/18 at 14:30 Sevelamer Carbonate (Renvela) 0.8 gm Q8H NGT Last administered on 09/16/18 04:32; Admin Dose 0.8 GM; Start 09/13/18 at 12:30 Lansoprazole (Prevacid) 30 mg BID@0600,1800 NGT Last administered on 09/16/18 05:53; Admin Dose 30 MG; Start 09/15/18 at 18:00 Assessment/Plan Hospital Course (Demo Recall) 1. Marked sinus bradycardia: Appears to be asymptomatic and in sinus we will continue to monitor. Probably at least partially related to sedation 2. Acute hypoxemic respiratory failure status post intubation on the vent 3. Pulmonary hypertension 4. History of proximal atrial fibrillation: currently has remained in normal sinus rhythm/sinus bradycardia 5. Hypertension 6. Urinary retention status post surgery 7. Pneumonia possible COPD possible ARDS 8. Acute renal failure Recommendations: off the amiodarone given his marked bradycardia as well as his significant pulmonary disease. Continue blood pressure control. Vent support will be continued managed as per pulmonary. weaning as tolerated Respiratory care to be continued. Continue with ICU care as long as patient is in the ventilator. Antibiotic management as per internal medicine consultants We will continue to monitor on telemetry thyroid management as per IM . TSH was normal as of 09/12/18 Antibiotic as per internal medicine Thank you for his referral. We will continue to follow along with you AMANDA DUNBAR MD [facility] AMANDA DUNBAR MD Sep 16, 2018 06:02
--- NOTE | 2018-09-16 07:01 | PN ---
DATE: 09/15/2018 SUBJECTIVE: The patient remains in serious but stable condition. The patient remains on full ventil atory support. No other acute events noted. OBJECTIVE: VITAL SIGNS: Blood pressure is 104/49 DICTATION ENDS HERE Dictated By: ANGELA ROSENTHAL/NEHAL Conf#: [id number] DID#: [id number]
--- NOTE | 2018-09-16 07:07 | PN ---
DATE: 09/15/2018 The patient was seen. Unfortunately attempt at CPAP today was again unsuccessful. SUBJECTIVE: Case discussed with Dr. Ponce and will try it for a few more days. Otherwise, the patie nt most likely will need a tracheostomy. Case discussed with family at bedside. Noted a drop in his hemoglobin. PHYSICAL EXAMINATION: VITAL SIGNS: Temperature 98.1, pulse 50, respirations 20, blood pressure 140/58, saturation 97%. Th e patient has been noted to be bradycardic in the high 40s. GENERAL: The patient is sedated, , arousable. CARDIOVASCULAR: S1, S2. LUNGS: Decreased bilaterally, otherwise clear. ABDOMEN: Soft. EXTREMITIES: +2 to 3 edema, right upper extremity and he has edema in the hands and pedal edema. Sp ontaneous movement of extremities, right upper extremity PICC line in place. LABORATORY DATA: White count 11.6, hemoglobin 8.2, hematocrit 26, platelets 112, 11%. Insole Beveler ry: Sodium 149, potassium 4.4, 123, bicarbonate 22, BUN is 100, creatinine 2.39, glucose of 10 5. Repeat urinalysis on 09/14/2018 shows nitrites and leukocyte esterase negative. Respiratory cult ure done yesterday. Cultures were too young and cultures of the nares was pending. MEDICATIONS: 1. Vancomycin dose per pharmacy. 2. Renvela 0.8 q. hours. 3. Culturelle b.i.d. 4. Precedex as directed. 5. Valtrex 500 b.i.d. 6. Kenalog b.i.d. 7. Vancomycin 250 q.6. 8. Flagyl 500 q.8h. 9. b.i.d. 10. Multivitamin 30 mL daily. 11. Zinc sulfate 220 daily. 12. Vitamin C 5 mg daily. 13. Folic acid 1 mg daily. 14. Diflucan q.24h. 15. Continue Prevacid as directed. 16. Ativan 0.5 p.r.n. 17. DuoNeb as directed p.r.n. 18. Hydralazine p.r.n. 19. Heparin 5000 subcu b.i.d. 20. Colace 100 b.i.d. 21. Lexapro 20 mg daily. 22. Xanax 0.5 at bedtime. 23. Zofran p.r.n. 24 Tylenol p.r.n. 25. Colace p.r.n. 26. Milk of magnesia as directed. No chest x-ray today. ASSESSMENT AND PLAN: This is an 87-year-old [place] male with history of atrial fibrillation, hyper tension, low back pain, who presented with shortness of breath, was found to have developing pneumoni a. 1. Respiratory. Status post treated for pneumonia, but unfortunately patient is too weak to be wean ed off the vent due to increased tachypnea and generalized weakness. Continue with CPAP trials. Con tinue AC mode to 30% FIO2, saturation is adequate. Recent chest x-ray shows resolution of pneumonia and vascular congestion. 2. Cardiovascular. The patient with episodes of bradycardia. Observe. This may be due to sedation . 3. Clonidine patch was discontinued. 4. Multiple wounds. Wound care consult. Remains on Valtrex, Diflucan, Vaseline and Kenalog ointmen t. 5. Nutrition. Continue nasogastric tube feeding at 50 mL an hour, tolerating it well. 6. Acute renal failure, partly due to administration of diuretics, slightly improved today. Bolus o f fluids p.r.n. 7. Neurologically on Precedex and p.r.n. propofol. 8. Anemia. May consider transfusion as the patient with elevated BUN. This patient is hemoconcentr ated. Case discussed with Dr. Ponce. May consider transfusion. Water flushes are being given as we ll per nephrology due to hypernatremia. 9. The patient is FULL CODE. Case discussed with family. They are aware of plan of care and patient's overall condition. We will follow. Dictated By: SERGOI CERVANTES/NEHAL Conf#: [id number] DID#: [id number]
[2018-09-16] MEDS ORDERED: METOLAZONE 2.5 MG TAB PO ONE (08:00)
--- NOTE | 2018-09-16 08:43 | CONS ---
Assessment/Plan Assessment/Plan Assessment/Plan (Daily) Chest x-ray is pending. Ventilator setting; AC of 20, tidal volume 500, PEEP of 5, 30% FiO2. Patient is currently on Precedex 0.2 mics per kilogram per hour. Assessment and recommendations; 1. Patient admitted with severe bilateral community acquired pneumonia having failed BiPAP requiring intubation. There is marked interval radiological improvement as well as improvement in hypoxemia. 2. Failure to be extubated despite multiple attempts due to generalized weakness and critical illness neuropathy / myopathy. 3. COPD. 4. History of cardiac arrhythmia. Patient in sinus rhythm. 5. History of mild chronic renal insufficiency. Patient maintaining stable serum creatinine. 6. Anemia and thrombocytopenia. Decrease Precedex to half the current dose. Perform a CPAP trial as tolerated. Further recommendations once patient is put on CPAP. Patient possibly may require tracheostomy. Prognosis is guarded. 35 minutes of critical care time was spent evaluating patient. Consultation Date/Type/Reason Admit Date/Time Aug 29, 2018 at 05:45 Initial Consult Date 08/30/18 Type of Consult Pulmonary Patient condition is tenuous. On BiPAP. Having significant chest congestion. Take slightly yellow-tinged secretions noted on suctioning. Patient requiring deep nasotracheal suctioning. General exam; elderly male, mildly lethargic. Requesting Provider: SERGIO TREVINO MD Date/Time of Note DATE: 09/16/18 TIME: 08:40 24 HR Interval Summary Free Text/Dictation Patien's condition is critical. Patient has failed multiple weaning trials from ventilator. Patient however has remained hemodynamically stable. General exam; elderly male, orally intubated, arousable. Currently in no distress. Orally intubated. Exam/Review of Systems Exam Vitals Vital Signs Date Temp Pulse Resp B/P (MAP) Pulse Ox O2 O2 Flow FiO2 Time Delivery Rate 09/16/18 30 08:00 09/16/18 45 20 111/54 100 Mechanical 06:00 (73) Ventilator 09/16/18 98.0 04:15 Intake and Output 09/15/18 09/15/18 09/16/18 1515:00 23:00 07:00 IntakeIntake Total 740 ml 1852.30 ml 723.22 ml OutputOutput Total 340 ml 510 ml 400 ml BalanceBalance 400 ml 1342.30 ml 323.22 ml Exam H EENT exam; supple neck, no JVD. No lymphadenopathy. Midline trachea. No thyromegaly. Orally intubated. Patient is edentulous. Orogastric tube in place. Pupils are small bilaterally. Chest exam; diminished breath sounds bilaterally. S1-S2 audible, no murmurs. Regular rhythm. Abdomen exam; soft, no organomegaly. Bowel sounds audible. Extremity exam; 1+ edema. Patient does have patchy ecchymosis. 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 Results Result Diagram: 09/16/18 0445 09/16/18 0445 Results 24hrs Laboratory Tests Test 09/16/18 04:45 09/16/18 04:45 White Blood Count 9.8 Red Blood Count 2.97 L Hemoglobin 9.2 L Hematocrit 28.8 L Mean Corpuscular Volume 97.0 Mean Corpuscular Hemoglobin 31.0 Mean Corpuscular Hemoglobin Concent 31.9 L Red Cell Distribution Width 15.0 H Platelet Count 114 L Mean Platelet Volume 12.5 H Immature Granulocytes % 0.400 Neutrophils % 81.0 H Lymphocytes % 14.5 L Monocytes % 2.7 Eosinophils % 1.3 Basophils % 0.1 Nucleated Red Blood Cells % 0.0 Immature Granulocytes # 0.040 H Neutrophils # 7.9 H Lymphocytes # 1.4 Monocytes # 0.3 Eosinophils # 0.1 Basophils # 0.0 Nucleated Red Blood Cells # 0.0 Sodium Level 148 H Potassium Level 4.3 Chloride Level 122 H Carbon Dioxide Level 21 Anion Gap 5 Blood Urea Nitrogen 95 H Creatinine 2.33 H Est Glomerular Filtrat Rate mL/min Glucose Level 113 Calcium Level 7.4 L Phosphorus Level 4.9 Magnesium Level 2.4 Lab Scanned Report BLOOD TRANSFUSION Medications Medication Current Medications IV Flush (NS 3 ml) 3 ml PER PROTOCOL IV ; Start 08/29/18 at 06:00 Ondansetron HCl (Zofran Inj) 4 mg Q6H PRN IV NAUSEA/VOMITING Last administered on 08/31/18at 05:02; Admin Dose 4 MG; Start 08/29/18 at 06:00 Acetaminophen (Tylenol Tab) 650 mg Q6H PRN PO .PAIN 1-3 OR TEMP; Start 08/29/18 at 06:00 Docusate Sodium (Colace) 100 mg Q12H PRN PO .CONSTIPATION Last administered on 08/30/18at 21:37; Admin Dose 100 MG; Start 08/29/18 at 06:00 Magnesium Hydroxide (Milk Of Mag) 30 ml DAILY PRN PO .CONSTIPATION Last administered on 09/02/18 05:16; Admin Dose 30 ML; Start 08/29/18 at 06:00 Alprazolam (Xanax) 0.5 mg QHS PO Last administered on 09/15/18 21:04; Admin Dose 0.5 MG; Start 08/29/18 at 21:00 Escitalopram Oxalate (Lexapro) 20 mg DAILY PO Last administered on 09/15/18 10:29; Admin Dose 20 MG; Start 08/30/18 at 09:00 Docusate Sodium (Colace) 100 mg BID PO Last administered on 09/15/18 20:49; Admin Dose 100 MG; Start 08/31/18 at 13:30 Lorazepam (Ativan) 0.5 mg Q6H PRN PO ANXIETY; Start 09/02/18 at 13:00 Bisacodyl (Dulcolax Supp) 10 mg DAILY PRN [place] CONSTIPATION; Start 09/03/18 at 12:00 Heparin Sodium (Porcine) (Heparin (5000 Units/1ml)) 5,000 unit BID SC Last administered on 09/15/18 10:31; Admin Dose 5,000 UNIT; Start 09/03/18 at 14:00 Hydralazine HCl (Apresoline) 10 mg Q3 PRN IV ELEVATED SYSTOLIC BP Last a dministered on 09/05/18 19:48; Admin Dose 10 MG; Start 09/03/18 at 18:00 Albuterol/ Ipratropium (Duoneb) 3 ml Q2H RESP THERAPY PRN HHN SHORTNESS OF BREATH; Start 09/03/18 at 20:00 Lorazepam (Ativan) 1 mg Q6H PRN IV anxiety Last administered on 09/06/18 00:00; Admin Dose 1 MG; Start 09/05/18 at 09:00 Propofol 100 ml @ 2.509 mls/ hr Q12H IV Last administered on 09/14/18 06:57; Admin Dose 10.037 MLS/HR; Start 09/06/18 at 09:30 Fentanyl 100 ml @ 2.5 mls/hr TITRATE IV Last administered on 09/07/18 09:19; Admin Dose 2.5 MLS/HR; Start 09/07/18 at 09:30 Multivitamins (Multivitamin) 30 ml DAILY NGT Last administered on 09/15/18 10:29; Admin Dose 30 ML; Start 09/07/18 at 14:30 Zinc Sulfate (Zinc Sulfate) 220 mg DAILY PO Last administered on 09/15/18 10:30; Admin Dose 220 MG; Start 09/07/18 at 14:30 Ascorbic Acid (Vitamin C) 500 mg DAILY NGT Last administered on 09/15/18 10:30; Admin Dose 500 MG; Start 09/07/18 at 14:30 Folic Acid (Folic Acid) 1 mg DAILY NGT Last administered on 09/15/18 10:30; Admin Dose 1 MG; Start 09/07/18 at 14:30 Petrolatum (Vaseline) APPLY TO MULTIPLE SC... BID TOP Last administered on 09/15/18 20:49; Admin Dose 1 EA; Start 09/08/18 at 09:00 IV Flush (NS 10 ml) 10 ml PRN PRN IV FLUSH LINE; Start 09/09/18 at 11:30 Vancomycin HCl (Vancomycin Oral Syringe) 250 mg Q6 PO Last administered on 09/16/18 05:53; Admin Dose 250 MG; Start 09/10/18 at 12:00 Dexmedetomidine HCl 200 mcg/ Sodium Chloride 50 ml @ 4.18 mls/hr TITRATE IV Last administered on 09/16/18 07:15; Admin Dose 4.18 MLS/HR; Start 09/12/18 at 14:00 Valacyclovir HCl (Valtrex) 500 mg BID PO Last administered on 09/15/18 20:48; Admin Dose 500 MG; Start 09/12/18 at 14:00 Triamcinolone Acetonide (Kenalog 0.1% Cr) 1 applic BID TOP Last administered on 09/15/18 20:49; Admin Dose 1 APPLIC; Start 09/12/18 at 14:00 Lactobacillus Acidophilus/ Rhamnosus (Culturelle) 1 cap BID PO Last admin istered on 09/15/18 20:48; Admin Dose 1 CAP; Start 09/12/18 at 14:30 Sevelamer Carbonate (Renvela) 0.8 gm Q8H NGT Last administered on 6/19/19at 04:32; Admin Dose 0.8 GM; Start 09/13/18 at 12:30 Lansoprazole (Prevacid) 30 mg BID@0600,1800 NGT Last administered on 09/16/18at 05:53; Admin Dose 30 MG; Start 09/15/18 at 18:00 JUDE GODINEZ Sep 16, 2018 08:43
[2018-09-16] MEDS: PETROLATUM 5 GM OINT TOP SCH ×2 (08:46→20:35)
[2018-09-16] MEDS: ZINC SULFATE 220 MG CAP PO SCH (08:46)
[2018-09-16] MEDS: valACYclovir 500 MG TAB PO SCH ×2 (08:46→20:35)
[2018-09-16] MEDS: FOLIC ACID 1 MG TAB NGT SCH (08:47)
[2018-09-16] MEDS: DOCUSATE SODIUM 100 MG CAP PO SCH (08:47)
[2018-09-16] MEDS: MULTIVITAMINS 30 ML CUP NGT SCH (08:47)
[2018-09-16] MEDS: ESCITALOPRAM 10 MG TAB PO SCH (08:47)
[2018-09-16] MEDS: ASCORBIC ACID 500 MG TAB NGT SCH (08:47)
[2018-09-16] MEDS: LACTOBACILLUS RHAMNOSUS CAP PO SCH ×2 (08:47→20:35)
[2018-09-16] MEDS: BALSAM PERU/CASTOR OIL 60 GM TUBE TOP SCH ×2 (08:48→20:35)
[2018-09-16] MEDS: TRIAMCINOLONE ACET 0.1% 15 GM CR TOP SCH ×2 (08:48→20:36)
[2018-09-16] MEDS: PROPOFOL 100 ML IV SCH ×2 (08:49→21:30)
[2018-09-16] MEDS: HEPARIN 5,000 UNIT/1 ML VIAL SC SCH ×2 (09:09→20:55)
[2018-09-16] MEDS: DOCUSATE SODIUM 10 MG/ML (10ML CUP) PO SCH ×2 (10:54→20:35)
[2018-09-16] MEDS ORDERED: DOCUSATE SODIUM 10 MG/ML (10ML CUP) PO PRN (11:00)
--- NOTE | 2018-09-16 12:13 | CONS ---
Assessment/Plan Assessment/Plan Hospital Course (Demo Recall) No acute changes patient remains intubated in no distress afebrile with WBC today 9.8 neutrophils 81 BUN 95 creatinine 2.33 Microbiology: Blood culture repeated 2 days ago grew staph species 1 out of 2 sets Antimicrobials: oral vancomycin, Valtrex Indwelling's: Endotracheal tube NG tube Mcgowan catheter Physical examination: Well-developed well-nourished elderly man who is awake in no distress. Head atraumatic normocephalic sclera nonicteric vehicle mucosa dry neck is supple chest rise symmetrical breath sounds with bilateral rhonchi. Heart: S1-S2. Abdomen soft bowel sounds present. Assessment: 1. Acute hypoxemic respiratory failure 2. Resolved pneumonia 3. CHF 4. Bradycardia 5. Acute kidney injury 6. Diarrhea 7. Leukocytosis, likely steroid-induced versus leukemoid reaction, resolving 8. Mouth lesions, on empiric Valtrex 9. Staph bacteremia cw contaminant Plan: Patient remains stable, continue present care, f/u pulmonary rec-s Consultation Date/Type/Reason Admit Date/Time Aug 29, 2018 at 05:45 Initial Consult Date 08/30/18 Type of Consult id Requesting Provider: SERGIO TREVINO MD Date/Time of Note DATE: 09/16/18 TIME: 12:12 Exam/Review of Systems Exam Vitals Vital Signs Date Temp Pulse Resp B/P (MAP) Pulse Ox O2 O2 Flow FiO2 Time Delivery Rate 09/16/18 60 34 100 30 11:05 09/16/18 111/54 Mechanical 06:00 (73) Ventilator 09/16/18 98.0 04:15 Intake and Output 09/15/18 09/15/18 09/16/18 1515:00 23:00 07:00 IntakeIntake Total 740 ml 1852.30 ml 723.22 ml OutputOutput Total 340 ml 510 ml 400 ml BalanceBalance 400 ml 1342.30 ml 323.22 ml Results Result Diagram: 09/16/18 0445 09/16/18 0445 Results 24hrs Laboratory Tests Test 09/16/18 04:45 09/16/18 04:45 09/16/18 11:00 White Blood Count 9.8 Red Blood Count 2.97 L Hemoglobin 9.2 L Hematocrit 28.8 L Mean Corpuscular Volume 97.0 Mean Corpuscular 31.0 Hemoglobin Mean Corpuscular 31.9 L Hemoglobin Concent Red Cell Distribution 15.0 H Width Platelet Count 114 L Mean Platelet Volume 12.5 H Immature Granulocytes % 0.400 Neutrophils % 81.0 H Lymphocytes % 14.5 L Monocytes % 2.7 Eosinophils % 1.3 Basophils % 0.1 Nucleated Red Blood 0.0 Cells % Immature Granulocytes # 0.040 H Neutrophils # 7.9 H Lymphocytes # 1.4 Monocytes # 0.3 Eosinophils # 0.1 Basophils # 0.0 Nucleated Red Blood 0.0 Cells # Sodium Level 148 H Potassium Level 4.3 Chloride Level 122 H Carbon Dioxide Level 21 Anion Gap 5 Blood Urea Nitrogen 95 H Creatinine 2.33 H Est Glomerular Filtrat Rate mL/min Glucose Level 113 Calcium Level 7.4 L Phosphorus Level 4.9 Magnesium Level 2.4 Lab Scanned Report BLOOD TRANSFUSION Blood Gas Specimen Blood arterial Source Arterial Blood Date 09/16/2018 10:56:41 AM Drawn Arterial Blood pH 7.388 (Temp corrected) Arterial Blood pCO2 31.4 L (Temp correct) Arterial Blood pO2 103.5 H (Temp corrected) Arterial Blood HCO3 18.5 L Arterial Blood Base -5.6 L Excess Arterial Blood 96.5 Oxygen Saturation Domenico Test ACCEPTAB Arterial Blood Gas Right Radial Puncture Site Arterial 0.3 Blood Carboxyhemoglobin Arterial Blood 0.2 Methemoglobin Blood Gas A-a O2 73.5 H Differential Oxyhemoglobin Percent 96.0 Blood Gas Temperature 37.0 Blood Gas Actual 33 Respiration Rate Blood Gas Modality VENT - CPAP FiO2 30.0 Blood Gas Low PEEP 5.0 Setting Blood Gas Pressure 15 Support Blood Gas Notified Whom TM Blood Gas Notified 09/16/2018 11:27:19 AM Time Medications Medication Current Medications IV Flush (NS 3 ml) 3 ml PER PROTOCOL IV ; Start 08/29/18 at 06:00 Ondansetron HCl (Zofran Inj) 4 mg Q6H PRN IV NAUSEA/VOMITING Last administered on 08/31/18at 05:02; Admin Dose 4 MG; Start 08/29/18 at 06:00 Acetaminophen (Tylenol Tab) 650 mg Q6H PRN PO .PAIN 1-3 OR TEMP; Start 08/29/18 at 06:00 Magnesium Hydroxide (Milk Of Mag) 30 ml DAILY PRN PO .CONSTIPATION Last administered on 09/02/18at 05:16; Admin Dose 30 ML; Start 08/29/18 at 06:00 Alprazolam (Xanax) 0.5 mg QHS PO Last administered on 09/15/18 21:04; Admin Dose 0.5 MG; Start 08/29/18 at 21:00 Escitalopram Oxalate (Lexapro) 20 mg DAILY PO Last administered on 09/16/18 08:47; Admin Dose 20 MG; Start 08/30/18 at 09:00 Lorazepam (Ativan) 0.5 mg Q6H PRN PO ANXIETY; Start 09/02/18 at 13:00 Bisacodyl (Dulcolax Supp) 10 mg DAILY PRN [place] CONSTIPATION; Start 09/03/18 at 12:00 Heparin Sodium (Porcine) (Heparin (5000 Units/1ml)) 5,000 unit BID SC Last administered on 09/16/18 09:09; Admin Dose 5,000 UNIT; Start 09/03/18 at 14:00 Hydralazine HCl (Apresoline) 10 mg Q3 PRN IV ELEVATED SYSTOLIC BP Last administered on 09/05/18 19:48; Admin Dose 10 MG; Start 09/03/18 at 18:00 Albuterol/ Ipratropium (Duoneb) 3 ml Q2H RESP THERAPY PRN HHN SHORTNESS OF MARK TH; Start 09/03/18 at 20:00 Lorazepam (Ativan) 1 mg Q6H PRN IV anxiety Last administered on 09/06/18 00:00; Admin Dose 1 MG; Start 09/05/18 at 09:00 Propofol 100 ml @ 2.509 mls/ hr Q12H IV Last administered on 09/14/18at 06:57; Admin Dose 10.037 MLS/HR; Start 09/06/18 at 09:30 Fentanyl 100 ml @ 2.5 mls/hr TITRATE IV Last administered on 09/07/18 09:19; Admin Dose 2.5 MLS/HR; Start 09/07/18 at 09:30 Multivitamins (Multivitamin) 30 ml DAILY NGT Last administered on 09/16/18 08:47; Admin Dose 30 ML; Start 09/07/18 at 14:30 Zinc Sulfate (Zinc Sulfate) 220 mg DAILY PO Last administered on 09/16/18 08:46; Admin Dose 220 MG; Start 09/07/18 at 14:30 Ascorbic Acid (Vitamin C) 500 mg DAILY NGT Last administered on 09/16/18 08:47; Admin Dose 500 MG; Start 09/07/18 at 14:30 Folic Acid (Folic Acid) 1 mg DAILY NGT Last administered on 09/16/18 08:47; Admin Dose 1 MG; Start 09/07/18 at 14:30 Petrolatum (Vaseline) APPLY TO MULTIPLE SC... BID TOP Last administered on 09/16/18 08:46; Admin Dose 1 EA; Start 09/08/18 at 09:00 IV Flush (NS 10 ml) 10 ml PRN PRN IV FLUSH LINE; Start 09/09/18 at 11:30 Vancomycin HCl (Vancomycin Oral Syringe) 250 mg Q6 PO Last administered on 09/16/18 05:53; Admin Dose 250 MG; Start 09/10/18 at 12:00 Dexmedetomidine HCl 200 mcg/ Sodium Chloride 50 ml @ 4.18 mls/hr TITRATE IV Last administered on 09/16/18 07:15; Admin Dose 4.18 MLS/HR; Start 09/12/18 at 14:00 Valacyclovir HCl (Valtrex) 500 mg BID PO Last administered on 09/16/18 08:46; Admin Dose 500 MG; Start 09/12/18 at 14:00 Triamcinolone Acetonide (Kenalog 0.1% Cr) 1 applic BID TOP Last administered on 09/16/18 08:48; Admin Dose 1 APPLIC; Start 09/12/18 at 14:00 Lactobacillus Acidophilus/ Rhamnosus (Culturelle) 1 cap BID PO Last administered on 09/16/18 08:47; Admin Dose 1 CAP; Start 09/12/18 at 14:30 Sevelamer Carbonate (Renvela) 0.8 gm Q8H NGT Last administered on 09/16/18 04:32; Admin Dose 0.8 GM; Start 09/13/18 at 12:30 Lansoprazole (Prevacid) 30 mg BID@0600,1800 NGT Last administered on 09/16/18 05:53; Admin Dose 30 MG; Start 09/15/18 at 18:00 Docusate Sodium (Colace Liquid Cup) 100 mg BID PO ; Start 09/16/18 at 11:00 Docusate Sodium (Colace Liquid Cup) 100 mg Q12H PRN PO .CONSTIPATION; Start 09/16/18 at 11:00 TAYLOR RIZZO NP Sep 16, 2018 12:13
--- NOTE | 2018-09-16 12:15 | PN ---
DATE: 09/16/2018 SUBJECTIVE: The patient is stable, remains critically ill on full ventilatory support. No other acu te events noted. OBJECTIVE: VITAL SIGNS: Blood pressure is 111/54, respirations 20, pulse 45, temperature 98.6. HEENT: Head is normocephalic. NECK: Supple. HEART: Regular rate. LUNGS: Show diminished breath sounds at the base. ABDOMEN: Soft, nontender to palpation without rebound or guarding. EXTREMITIES: Negative for clubbing, cyanosis. Positive edema. DERMATOLOGIC: No rashes. MUSCULOSKELETAL: No joint effusion. NEUROLOGIC: No change in exam. MEDICATIONS: The patient's medications have been reviewed. LABORATORY DATA: Has been reviewed. IMAGING STUDIES: Have been reviewed. ASSESSMENT AND PLAN: 1. Nonoliguric acute kidney injury with unknown baseline creatinine. Etiology of acute kidney injur y secondary to acute tubular necrosis, hemodynamics. The patient's renal function has been fluctuati ng but overall stable. At this point, continue current treatment plans, supportive care, renally dos e all meds, no immediate need for renal placement therapy. 2. Volume overload. Etiology is multifactorial secondary to sepsis, IV fluids, capillary leak. The patient will be given a dose of metolazone, monitor electrolytes, renal function closely. 3. Hypernatremia. The patient has a free water deficit of approximately 3 liters. Will continue fr ee water flushes. Will increase to 400 mL q.4 hours. Continue to monitor closely. 4. Anemia. Monitor hemoglobin and hematocrit levels. 5. Mineral bone disorder, monitor calcium and phosphorus levels. 6. Ventilatory-dependent respiratory failure. Vent settings have been reviewed. Continue to monito r. 7. Sepsis secondary to pneumonia. Continue current antibiotic regimen. 8. Acute encephalopathy, etiology is toxic metabolic. 9. Diastolic heart failure. Continue intermittent diuretic therapy. We will give a course of metol azone. 10. Diarrhea. Continue Flagyl. 11. History of benign prostatic hypertrophy. Dictated By: ANGELA BALLARD DO NR/NTS Conf#: [id number] DID#: [id number] CC: SERGIO TREVINO MD; OLIVE ANDREWS MD;*EndCC*
--- NOTE | 2018-09-16 16:55 | CONS ---
Assessment/Plan Assessment/Plan Assessment/Plan (Daily) IMPRESSION 1. Anemia with dark color stool and positive stool guaiac, most probably related to GI bleeding. 2. Renal insufficiency, which is stable. 3. Respiratory failure from the pneumonia, bilateral, ____ on vent. 4. Chronic obstructive pulmonary disease. 5. Critical care myopathy. 6. Status post surgery for the prostate and suprapubic catheter. 7. Multiple wounds. 8. The patient's 2D echocardiogram shows a 65% ejection fraction. Normal mitral and aortic valve. His hematocrit is 26, platelet count is 112. BUN is 100, creatinine is 2.39, INR is 1.3. Plan We will do EGD tomorrow to find out the cause of melanotic stool continue Pepcid Consultation Date/Type/Reason Admit Date/Time Aug 29, 2018 at 05:45 Initial Consult Date 09/07/18 Requesting Provider: SERGIO TREVINO MD Date/Time of Note DATE: 09/16/18 TIME: 16:52 24 HR Interval Summary Constitutional: improved Exam/Review of Systems Exam Vitals Vital Signs Date Temp Pulse Resp B/P (MAP) Pulse Ox O2 O2 Flow FiO2 Time Delivery Rate 09/16/18 48 16:00 09/16/18 20 100 30 15:20 09/16/18 118/48 Mechanical 13:00 (71) Ventilator 09/16/18 98.7 12:00 Intake and Output 09/15/18 09/15/18 09/16/18 1515:00 23:00 07:00 IntakeIntake Total 740 ml 1852.30 ml 723.22 ml OutputOutput Total 340 ml 510 ml 400 ml BalanceBalance 400 ml 1342.30 ml 323.22 ml Constitutional: alert ENMT: intubated Neck: supple, non-tender Respiratory: diminished breath sounds Gastrointestinal: soft, nl liver, spleen, non-tender Musculoskeletal: nl extremities to inspection, nl gait and stance Extremities: calf tenderness Results Result Diagram: 09/16/18 0445 09/16/18444 Results 24hrs Laboratory Tests Test 09/16/18 04:45 09/16/18 04:45 09/16/18 11:00 White Blood Count 9.8 Red Blood Count 2.97 L Hemoglobin 9.2 L Hematocrit 28.8 L Mean Corpuscular Volume 97.0 Mean Corpuscular 31.0 Hemoglobin Mean Corpuscular 31.9 L Hemoglobin Concent Red Cell Distribution 15.0 H Width Platelet Count 114 L Mean Platelet Volume 12.5 H Immature Granulocytes % 0.400 Neutrophils % 81.0 H Lymphocytes % 14.5 L Monocytes % 2.7 Eosinophils % 1.3 Basophils % 0.1 Nucleated Red Blood 0.0 Cells % Immature Granulocytes # 0.040 H Neutrophils # 7.9 H Lymphocytes # 1.4 Monocytes # 0.3 Eosinophils # 0.1 Basophils # 0.0 Nucleated Red Blood 0.0 Cells # Sodium Level 148 H Potassium Level 4.3 Chloride Level 122 H Carbon Dioxide Level 21 Anion Gap 5 Blood Urea Nitrogen 95 H Creatinine 2.33 H Est Glomerular Filtrat Rate mL/min Glucose Level 113 Calcium Level 7.4 L Phosphorus Level 4.9 Magnesium Level 2.4 Lab Scanned Report BLOOD TRANSFUSION Blood Gas Specimen Blood arterial Source Arterial Blood Date 09/16/2018 10:56:41 AM Drawn Arterial Blood pH 7.388 (Temp corrected) Arterial Blood pCO2 31.4 L (Temp correct) Arterial Blood pO2 103.5 H (Temp corrected) Arterial Blood HCO3 18.5 L Arterial Blood Base -5.6 L Excess Arterial Blood 96.5 Oxygen Saturation Domenico Test ACCEPTAB Arterial Blood Gas Right Radial Puncture Site Arterial 0.3 Blood Carboxyhemoglobin Arterial Blood 0.2 Methemoglobin Blood Gas A-a O2 73.5 H Differential Oxyhemoglobin Percent 96.0 Blood Gas Temperature 37.0 Blood Gas Actual 33 Respiration Rate Blood Gas Modality VENT - CPAP FiO2 30.0 Blood Gas Low PEEP 5.0 Setting Blood Gas Pressure 15 Support Blood Gas Notified Whom TM Blood Gas Notified 09/16/2018 11:27:19 AM Time Medications Medication Current Medications IV Flush (NS 3 ml) 3 ml PER PROTOCOL IV ; Start 08/29/18 at 06:00 Ondansetron HCl (Zofran Inj) 4 mg Q6H PRN IV NAUSEA/VOMITING Last administered on 08/31/18at 05:02; Admin Dose 4 MG; Start 08/29/18 at 06:00 Acetaminophen (Tylenol Tab) 650 mg Q6H PRN PO .PAIN 1-3 OR TEMP; Start 08/29/18 at 06:00 Magnesium Hydroxide (Milk Of Mag) 30 ml DAILY PRN PO .CONSTIPATION Last administered on 09/02/18at 05:16; Admin Dose 30 ML; Start 08/29/18 at 06:00 Alprazolam (Xanax) 0.5 mg QHS PO Last administered on 09/15/18at 21:04; Admin Dose 0.5 MG; Start 08/29/18 at 21:00 Escitalopram Oxalate (Lexapro) 20 mg DAILY PO Last administered on 09/16/18 08:47; Admin Dose 20 MG; Start 08/30/18 at 09:00 Lorazepam (Ativan) 0.5 mg Q6H PRN PO ANXIETY; Start 09/02/18 at 13:00 Bisacodyl (Dulcolax Supp) 10 mg DAILY PRN ND CONSTIPATION; Start 09/03/18 at 12:00 Heparin Sodium (Porcine) (Heparin (5000 Units/1ml)) 5,000 unit BID SC Last administered on 09/16/18 09:09; Admin Dose 5,000 UNIT; Start 09/03/18 at 14:00 Hydralazine HCl (Apresoline) 10 mg Q3 PRN IV ELEVATED SYSTOLIC BP Last administered on 09/05/18 19:48; Admin Dose 10 MG; Start 09/03/18 at 18:00 Albuterol/ Ipratropium (Duoneb) 3 ml Q2H RESP THERAPY PRN HHN SHORTNESS OF BREATH; Start 09/03/18 at 20:00 Lorazepam (Ativan) 1 mg Q6H PRN IV anxiety Last administered on 09/06/18at 00:00; Admin Dose 1 MG; Start 09/05/18 at 09:00 Propofol 100 ml @ 2.509 mls/ hr Q12H IV Last administered on 09/14/18at 06:57; Admin Dose 10.037 MLS/HR; Start 09/06/18 at 09:30 Fentanyl 100 ml @ 2.5 mls/hr TITRATE IV Last administered on 09/07/18 09:19; Admin Dose 2.5 MLS/HR; Start 09/07/18 at 09:30 Multivitamins (Multivitamin) 30 ml DAILY NGT Last administered on 09/16/18 08:47; Admin Dose 30 ML; Start 09/07/18 at 14:30 Zinc Sulfate (Zinc Sulfate) 220 mg DAILY PO Last administered on 09/16/18 08:46; Admin Dose 220 MG; Start 09/07/18 at 14:30 Ascorbic Acid (Vitamin C) 500 mg DAILY NGT Last administered on 09/16/18 08:47; Admin Dose 500 MG; Start 09/07/18 at 14:30 Folic Acid (Folic Acid) 1 mg DAILY NGT Last administered on 09/16/18 08:47; Admin Dose 1 MG; Start 09/07/18 at 14:30 Petrolatum (Vaseline) APPLY TO MULTIPLE SC... BID TOP Last administered on 09/16/18 08:46; Admin Dose 1 EA; Start 09/08/18 at 09:00 IV Flush (NS 10 ml) 10 ml PRN PRN IV FLUSH LINE; Start 09/09/18 at 11:30 Vancomycin HCl (Vancomycin Oral Syringe) 250 mg Q6 PO Last administered on 09/16/18 12:32; Admin Dose 250 MG; Start 09/10/18 at 12:00 Dexmedetomidine HCl 200 mcg/ Sodium Chloride 50 ml @ 4.18 mls/hr TITRATE IV Last administered on 09/16/18 07:15; Admin Dose 4.18 MLS/HR; Start 09/12/18 at 14:00 Valacyclovir HCl (Valtrex) 500 mg BID PO Last administered on 09/16/18 08:46; Admin Dose 500 MG; Start 09/12/18 at 14:00 Triamcinolone Acetonide (Kenalog 0.1% Cr) 1 applic BID TOP Last administered on 09/16/18 08:48; Admin Dose 1 APPLIC; Start 09/12/18 at 14:00 Lactobacillus Acidophilus/ Rhamnosus (Culturelle) 1 cap BID PO Last administered on 09/16/18 08:47; Admin Dose 1 CAP; Start 09/12/18 at 14:30 Sevelamer Carbonate (Renvela) 0.8 gm Q8H NGT Last administered on 09/16/18 12:32; Admin Dose 0.8 GM; Start 09/13/18 at 12:30 Lansoprazole (Prevacid) 30 mg BID@0600,1800 NGT Last administered on 09/16/18 05:53; Admin Dose 30 MG; Start 09/15/18 at 18:00 Docusate Sodium (Colace Liquid Cup) 100 mg BID PO ; Start 09/16/18 at 11:00 Docusate Sodium (Colace Liquid Cup) 100 mg Q12H PRN PO .CONSTIPATION; Start 09/16/18 at 11:00 TOOTIE HERNANDEZ MD Sep 16, 2018 16:55
[2018-09-16] MEDS: ALPRAZOLAM 0.5 MG TAB PO SCH (20:35)
[2018-09-17] VITALS (36 sets, daily range): BP systolic 98–141; BP diastolic 38–62; PULSE 46–68; RESP 14–21
--- NOTE | 2018-09-17 00:16 | PN ---
DATE: 09/16/2018 SUBJECTIVE: The patient seen on Precedex more awake, looks better. The patient is status post 1 uni t of PRBC as the patient noted to have drop in his hemoglobin, possibly due to GI bleed. The patient does have positive fecal occult blood and BUN is elevated. The patient again looks better, still ep isode of bradycardia in the 30s and 40s but unfortunately he failed more than 2 hours of CPAP trial. I believe partly it is anxiety, etc. His case discussed with Dr. Ponce, would definitely recommend a trial of extubation as the trach for this patient will be quite devastating but definitely an optio n. PHYSICAL EXAMINATION: VITAL SIGNS: Temperature 98, pulse is 60, respirations 15 to 34, saturation 100% on 30% FIO2. GENERAL: No acute distress. CARDIOVASCULAR: S1, S2, regular rate. LUNGS: Clear. ABDOMEN: Soft, nontender. EXTREMITIES: Positive +1 pitting edema. LABORATORY DATA: White count is 9.8, hemoglobin 9.2, hematocrit 29, platelet count 140, neutrophils 81%, lymphocytes 15%. Chemistry: Sodium is 148, potassium 4.3, chloride 122, bicarbonate 21, BUN is 95, creatinine 2.33, glucose of 113. CURRENT MEDICATIONS: 1. Colace 100 b.i.d., currently on hold due to diarrhea. 2. Prevacid 10 mg twice a day. 3. Renvela 0.8 q.8 hours. 4. Culturelle 1 cap b.i.d. 5. Precedex as directed. 6. Valacyclovir 500 b.i.d. 7. Kenalog cream b.i.d. 8. Vancomycin 250 q.6. 9. Vaseline b.i.d. 10. Multivitamins daily. 11. Zinc sulfate 220 daily. 12. Vitamin C 500 mg daily. 13. Folic acid 1 mg daily. 14. Fentanyl currently off. 15. Propofol currently off 16. Ativan p.r.n. 17. DuoNeb p.r.n. 18. Hydralazine p.r.n. 19. Heparin 5000 b.i.d. 20. Dulcolax p.r.n. 21. Ativan p.r.n. 22. The patient is on Lexapro 20 mg daily. 23. Xanax 0.5 at bedtime. 24. Zofran p.r.n. 25. Tylenol p.r.n. IMAGING: Chest x-ray dated today was read as follows: Cardiomegaly with calcified atherosclerosis i n the aorta, stable central pulmonary vascular congestion, mild interstitial prominence in both lungs . Interval increase in patchy infiltrates throughout both lungs with small to moderate pleural effus ions. ASSESSMENT AND PLAN: This is an 87-year-old German male with history of atrial fibrillation, hyper tension, low back pain, who presented with shortness of breath, was treated for pneumonia. Unfortuna tely, condition worsening requiring intubation as he was treated for multifocal pneumonia or early AR DS picture. 1. Respiratory. Continue treatment. Try to wean him off the vent, status post treatment for pneumo errol on diuretic therapy. 2. Cardiovascular: Positive bradycardia. All blood pressure meds are on hold. Dr. Tracey is follo wing. Continue heparin for DVT prophylaxis. 3. Anemia with evidence of gastrointestinal bleed, on Prevacid twice a day and status post transfusi on. Continue to transfuse p.r.n. 4. Multiple wounds. Wound culture is following. Continue Valtrex, Kenalog, and Vaseline and vitami ns including multivitamin, zinc, and vitamin C. 5. Acute renal failure, probably due to diuretics, observe. The patient was started on Zaroxolyn fo r edema. 6. Neurologically on Precedex, responsive. 7. The patient is full code. 8. Antibiotics and antifungal as per ID. White count is normal. 9. Hopefully, we can at least give him a trial of extubation. Otherwise, may need a trach and PEG. 10. The patient may undergo EGD when more stable. Monitor H and H and transfuse p.r.n. 11. Diarrhea. C. diff negative but remains on empiric treatment with vancomycin and Flagyl. We chelle machuca follow closely. Dictated By: SERGIO CERVANTES/NEHAL Conf#: [id number] DID#: [id number]
[2018-09-17] MEDS: VANCOMYCIN HCL 250 MG/5ML POSYG PO SCH ×5 (01:10→23:41)
[2018-09-17] MEDS: SEVELAMER CARBONATE 0.8 GM PKT NGT SCH ×3 (03:47→21:02)
[2018-09-17] MEDS: DEXMEDETOMIDINE HCL 200 MCG in SOD CHLORIDE 0.9% 48 ML IV SCH (03:48)
[2018-09-17] MEDS: LANSOPRAZOLE 30 MG CAP NGT SCH ×2 (05:40→17:35)
[2018-09-17] MEDS: DOCUSATE SODIUM 10 MG/ML (10ML CUP) PO SCH ×2 (06:59→21:02)
--- NOTE | 2018-09-17 07:20 | CONS ---
Consult Date/Type/Reason Admit Date/Time Aug 29, 2018 at 05:45 Initial Consult Date 09/07/18 Type of Consultation: cv Requesting Provider: SERGIO TREVINO MD Date/Time of Note DATE: 09/17/18 TIME: 07:18 Subjective Interventional cardiology follow-up progress note Subjective: Case discussed with the staff and telemetry was reviewed. Patient has remained in sinus rhythm /. sinus bradycardia. No long pauses reported. No significant other arrhythmias reported. no afib Patient remains intubated on the vent in the ICU nonverbal. min secretions per staff + Diarrhea O General: Elderly gentleman. Status post intubation on the vent HEENT: NC/AT. pupils are equal. round. NECK: NO JVD. no stridor. CV: RRR. systolic murmur; no gallop or rubs. PULM: no wheezing + rhonchi. GI: SOFT, NT, ND, no rebound or guarding Extremity: trace B/L LE edema. no clubbing. neuro: opens his eyes Psych: calm rectal: deferred EKG normal sinus rhythm Chest x-ray on admission showed: 1. Right basilar interstitial opacities, new from the prior examination from a few hours prior, likely reflecting atelectasis. 2. Mild prominence of the interstitial markings, may reflect mild underlying interstitial edema or chronic lung changes. 3. Mild cardiomegaly and aortic atherosclerosis. Chest x-ray done on 09/06/2018 shows: 1. Atherosclerosis of the thoracic aorta. 2. Persistent bilateral pulmonary infiltrates which could represent infection or non infection related edema or combination of the 2. 3. Endotracheal and nasogastric tubes in place. Echocardiogram done on 08/29/2018 which was personally reviewed shows: There is mild to mod enlargement of left atrium. Normal left ventricular systolic function. Normal left ventricular cavity size. Normal left ventricular wall thickness. Ejection fraction is visually estimated at 60-65 %. Normal appearance of the mitral valve. Mild mitral valve regurgitation. Normal appearance of the aortic valve. No aortic regurgitation. Normal appearance of the tricuspid valve. The estimated Peak RVSP is 53 mmHg. There is mild tricuspid regurgitation. The IVC is not well visualized. Objective Vitals Vital Signs Date Temp Pulse Resp B/P (MAP) Pulse Ox O2 O2 Flow FiO2 Time Delivery Rate 09/17/18 20 125/54 100 Mechanical 07:00 (77) Ventilator 09/17/18 46 30 05:45 09/17/18 97.4 04:00 Intake and Output 09/16/18 09/16/18 09/17/18 1515:00 23:00 07:00 IntakeIntake Total 2114 ml 1276.90 ml 33.44 ml OutputOutput Total 575 ml 1035 ml 450 ml BalanceBalance 1539 ml 241.90 ml -416.56 ml Results/Medications Result Diagram: 09/17/18 0400 09/17/18 0400 Results 24 hrs Laboratory Tests Test 09/16/18 11:00 09/17/18 04:00 Blood Gas Specimen Source Blood arterial Arterial Blood Date Drawn 09/16/2018 10:56:41 AM Arterial Blood pH (Temp corrected) 7.388 Arterial Blood pCO2 (Temp correct) 31.4 L Arterial Blood pO2 (Temp corrected) 103.5 H Arterial Blood HCO3 18.5 L Arterial Blood Base Excess -5.6 L Arterial Blood Oxygen Saturation 96.5 Domenico Test ACCEPTAB Arterial Blood Gas Puncture Site Right Radial Arterial Blood Carboxyhemoglobin 0.3 Arterial Blood Methemoglobin 0.2 Blood Gas A-a O2 Differential 73.5 H Oxyhemoglobin Percent 96.0 Blood Gas Temperature 37.0 Blood Gas Actual Respiration Rate 33 Blood Gas Modality VENT - CPAP FiO2 30.0 Blood Gas Low PEEP Setting 5.0 Blood Gas Pressure Support 15 Blood Gas Notified Whom TM Blood Gas Notified Time 09/16/2018 11:27:19 AM White Blood Count 8.7 Red Blood Count 3.00 L Hemoglobin 9.2 L Hematocrit 29.2 L Mean Corpuscular Volume 97.3 Mean Corpuscular Hemoglobin 30.7 Mean Corpuscular Hemoglobin Concent 31.5 L Red Cell Distribution Width 15.2 H Platelet Count 125 L Mean Platelet Volume 12.4 H Immature Granulocytes % 0.600 H Neutrophils % 78.8 H Lymphocytes % 16.0 Monocytes % 2.9 Eosinophils % 1.6 Basophils % 0.1 Nucleated Red Blood Cells % 0.0 Immature Granulocytes # 0.050 H Neutrophils # 6.9 Lymphocytes # 1.4 Monocytes # 0.3 Eosinophils # 0.1 Basophils # 0.0 Nucleated Red Blood Cells # 0.0 Sodium Level 147 H Potassium Level 4.5 Chloride Level 119 H Carbon Dioxide Level 22 Anion Gap 6 Blood Urea Nitrogen 87 H Creatinine 2.21 H Est Glomerular Filtrat Rate mL/min Glucose Level 90 Calcium Level 7.5 L Phosphorus Level 4.9 Magnesium Level 2.4 Home Meds Reported Medications Losartan Potassium* (Losartan Potassium*) 50 Mg Tablet, 50 MG PO DAILY, TAB 08/29/18 Simvastatin (Simvastatin) 20 Mg Tablet, 20 MG PO QHS for 90 Days, #90 08/29/18 Furosemide* (Furosemide*) 40 Mg Tablet, 40 MG PO DAILY for 90 Days, #90 08/29/18 Potassium Chloride (K-Tab ER) 8 Meq Tablet.er, 8 MEQ PO BID for 90 Days, #180 08/29/18 Escitalopram Oxalate* (Escitalopram Oxalate*) 10 Mg Tablet, 20 MG PO DAILY for 90 Days, #90 08/29/18 Hydrocodone Bit-Acetaminophen (Hydrocodone Bit-APAP) 5-325MG Tablet, 1 TAB PO DAILY 08/29/18 Dexlansoprazole (Dexilant) 60 Mg Cap., 60 MG PO DAILY for 90 Days, #90 08/29/18 Amiodarone Hcl* (Amiodarone Hcl*) 200 Mg Tablet, 200 MG PO DAILY for 90 Days, #90 08/29/18 Alprazolam* (Alprazolam*) 0.5 Mg Tablet, 0.5 MG PO QHS for 30 Days, #30 08/29/18 Medications Current Medications IV Flush (NS 3 ml) 3 ml PER PROTOCOL IV ; Start 08/29/18 at 06:00 Ondansetron HCl (Zofran Inj) 4 mg Q6H PRN IV NAUSEA/VOMITING Last administered on 08/31/18at 05:02; Admin Dose 4 MG; Start 08/29/18 at 06:00 Acetaminophen (Tylenol Tab) 650 mg Q6H PRN PO .PAIN 1-3 OR TEMP; Start 08/29/18 at 06:00 Magnesium Hydroxide (Milk Of Mag) 30 ml DAILY PRN PO .CONSTIPATION Last administered on 09/02/18at 05:16; Admin Dose 30 ML; Start 08/29/18 at 06:00 Alprazolam (Xanax) 0.5 mg QHS PO Last administered on 09/16/18at 20:35; Admin Dose 0.5 MG; Start 08/29/18 at 21:00 Escitalopram Oxalate (Lexapro) 20 mg DAILY PO Last administered on 09/16/18 08:47; Admin Dose 20 MG; Start 08/30/18 at 09:00 Lorazepam (Ativan) 0.5 mg Q6H PRN PO ANXIETY; Start 09/02/18 at 13:00 Bisacodyl (Dulcolax Supp) 10 mg DAILY PRN AR CONSTIPATION; Start 09/03/18 at 12:00 Heparin Sodium (Porcine) (Heparin (5000 Units/1ml)) 5,000 unit BID SC Last administered on 09/16/18 09:09; Admin Dose 5,000 UNIT; Start 09/03/18 at 14:00 Hydralazine HCl (Apresoline) 10 mg Q3 PRN IV ELEVATED SYSTOLIC BP Last administered on 09/05/18 19:48; Admin Dose 10 MG; Start 09/03/18 at 18:00 Albuterol/ Ipratropium (Duoneb) 3 ml Q2H RESP THERAPY PRN HHN SHORTNESS OF BREATH; Start 09/03/18 at 20:00 Lorazepam (Ativan) 1 mg Q6H PRN IV anxiety Last administered on 09/06/18 00:00; Admin Dose 1 MG; Start 09/05/18 at 09:00 Propofol 100 ml @ 2.509 mls/ hr Q12H IV Last administered on 09/14/18 06:57; Admin Dose 10.037 MLS/HR; Start 09/06/18 at 09:30 Fentanyl 100 ml @ 2.5 mls/hr TITRATE IV Last administered on 09/07/18 09:19; Admin Dose 2.5 MLS/HR; Start 09/07/18 at 09:30 Multivitamins (Multivitamin) 30 ml DAILY NGT Last administered on 09/16/18 08:47; Admin Dose 30 ML; Start 09/07/18 at 14:30 Zinc Sulfate (Zinc Sulfate) 220 mg DAILY PO Last administered on 09/16/18 08:46; Admin Dose 220 MG; Start 09/07/18 at 14:30 Ascorbic Acid (Vitamin C) 500 mg DAILY NGT Last administered on 09/16/18 08:47; Admin Dose 500 MG; Start 09/07/18 at 14:30 Folic Acid (Folic Acid) 1 mg DAILY NGT Last administered on 09/16/18 08:47; Admin Dose 1 MG; Start 09/07/18 at 14:30 Petrolatum (Vaseline) APPLY TO MULTIPLE SC... BID TOP Last administered on 09/16/18 20:35; Admin Dose 1 EA; Start 09/08/18 at 09:00 IV Flush (NS 10 ml) 10 ml PRN PRN IV FLUSH LINE; Start 09/09/18 at 11:30 Vancomycin HCl (Vancomycin Oral Syringe) 250 mg Q6 PO Last administered on 09/17/18at 01:10; Admin Dose 250 MG; Start 09/10/18 at 12:00 Dexmedetomidine HCl 200 mcg/ Sodium Chloride 50 ml @ 4.18 mls/hr TITRATE IV Last administered on 09/17/18 03:48; Admin Dose 4.18 MLS/HR; Start 09/12/18 at 14:00 Valacyclovir HCl (Valtrex) 500 mg BID PO Last administered on 09/16/18 20:35; Admin Dose 500 MG; Start 09/12/18 at 14:00 Triamcinolone Acetonide (Kenalog 0.1% Cr) 1 applic BID TOP Last administered on 09/16/18 20:36; Admin Dose 1 APPLIC; Start 09/12/18 at 14:00 Lactobacillus Acidophilus/ Rhamnosus (Culturelle) 1 cap BID PO Last administered on 09/16/18 20:35; Admin Dose 1 CAP; Start 09/12/18 at 14:30 Sevelamer Carbonate (Renvela) 0.8 gm Q8H NGT Last administered on 09/16/18 20:34; Admin Dose 0.8 GM; Start 09/13/18 at 12:30 Lansoprazole (Prevacid) 30 mg BID@0600,1800 NGT Last administered on 09/16/18 18:08; Admin Dose 30 MG; Start 09/15/18 at 18:00 Docusate Sodium (Colace Liquid Cup) 100 mg BID PO Last administered on 09/16/18 20:35; Admin Dose 100 MG; Start 09/16/18 at 11:00 Docusate Sodium (Colace Liquid Cup) 100 mg Q12H PRN PO .CONSTIPATION; Start 09/16/18 at 11:00 Assessment/Plan Hospital Course (Demo Recall) 1. Marked sinus bradycardia: Appears to be asymptomatic and in sinus we will continue to monitor. Probably at least partially related to sedation 2. Acute hypoxemic respiratory failure status post intubation on the vent 3. Pulmonary hypertension 4. History of proximal atrial fibrillation: currently has remained in normal sinus rhythm/sinus bradycardia 5. Hypertension 6. Urinary retention status post surgery 7. Pneumonia possible COPD possible ARDS 8. Acute renal failure Recommendations: off the amiodarone given his marked bradycardia as well as his significant pulmonary disease. Continue blood pressure control. Vent support will be continued managed as per pulmonary. weaning as tolerated Respiratory care to be continued. Continue with ICU care as long as patient is in the ventilator. Antibiotic management as per internal medicine consultants We will continue to monitor on telemetry thyroid management as per IM . TSH was normal as of 09/12/18 Antibiotic as per internal medicine awaiting for EGD today per GI rec Thank you for his referral. We will continue to follow along with you AMANDA DUNBAR MD [facility] AMANDA DUNBAR MD Sep 17, 2018 07:19
[2018-09-17] MEDS ORDERED: FUROSEMIDE 40 MG INJ IV ONE (08:30)
[2018-09-17] MEDS: ESCITALOPRAM 10 MG TAB PO SCH (08:38)
[2018-09-17] MEDS: BALSAM PERU/CASTOR OIL 60 GM TUBE TOP SCH ×2 (08:38→21:03)
[2018-09-17] MEDS: FOLIC ACID 1 MG TAB NGT SCH (08:38)
[2018-09-17] MEDS: valACYclovir 500 MG TAB PO SCH ×2 (08:38→21:03)
[2018-09-17] MEDS: TRIAMCINOLONE ACET 0.1% 15 GM CR TOP SCH ×2 (08:38→22:36)
[2018-09-17] MEDS: PETROLATUM 5 GM OINT TOP SCH ×2 (08:38→21:02)
[2018-09-17] MEDS: LACTOBACILLUS RHAMNOSUS CAP PO SCH ×2 (08:38→17:34)
[2018-09-17] MEDS: MULTIVITAMINS 30 ML CUP NGT SCH (08:38)
[2018-09-17] MEDS: ZINC SULFATE 220 MG CAP PO SCH (08:38)
[2018-09-17] MEDS: ASCORBIC ACID 500 MG TAB NGT SCH (08:38)
[2018-09-17] MEDS: PROPOFOL 100 ML IV SCH ×2 (08:39→10:38)
[2018-09-17] MEDS: HEPARIN 5,000 UNIT/1 ML VIAL SC SCH ×2 (08:41→21:28)
--- NOTE | 2018-09-17 08:45 | CONS ---
Assessment/Plan Assessment/Plan Assessment/Plan (Daily) Ventilator setting; assist control of 20, tidal volume 500, PEEP of 5, 30% FiO2. Patient is currently on Precedex 0.2 mics per kilogram per hour. Assessment and recommendations; 1. Patient admitted with severe bilateral pneumonia failed BiPAP required intubation and has failed multiple weaning trials despite significant radiological improvement. 2. Underlying COPD. 3. Stable chronic renal insufficiency. 4. History of cardiac arrhythmia, patient remains in sinus rhythm. 5. Anemia, status post blood transfusion. 6. Thrombocytopenia. 7. Hypernatremia with interval improvement. Continue current supportive care. Patient scheduled for EGD at afternoon. Patient to be given weaning trial this morning as well. Will give Lasix 40 mg x 1 IV push. Obtain follow-up chest x-ray 24 hours. Prognosis is guarded and the patient likely will need to have a tracheostomy performed. Consultation Date/Type/Reason Admit Date/Time Aug 29, 2018 at 05:45 Initial Consult Date 08/30/18 Type of Consult Pulmonary Patient condition is tenuous. On BiPAP. Having significant chest congestion. Take slightly yellow-tinged secretions noted on suctioning. Patient requiring deep nasotracheal suctioning. General exam; elderly male, mildly lethargic. Requesting Provider: SERGIO TREVINO MD Date/Time of Note DATE: 09/17/18 TIME: 08:42 24 HR Interval Summary Free Text/Dictation Patient's condition is critical. Patient however has remained hemodynamically stable. Has failed multiple weaning trials from ventilator. General exam; elderly male, orally intubated, responsive, currently no distress. Exam/Review of Systems Exam Vitals Vital Signs Date Temp Pulse Resp B/P (MAP) Pulse Ox O2 O2 Flow FiO2 Time Delivery Rate 09/17/18 46 08:00 09/17/18 30 08:00 09/17/18 20 125/54 100 Mechanical 07:00 (77) Ventilator 09/17/18 97.4 04:00 Intake and Output 09/16/18 09/16/18 09/17/18 1515:00 23:00 07:00 IntakeIntake Total 2114 ml 1276.90 ml 33.44 ml OutputOutput Total 575 ml 1035 ml 450 ml BalanceBalance 1539 ml 241.90 ml -416.56 ml Exam H ENT exam; supple neck, no JVD. No lymphadenopathy. Midline trachea. No thyromegaly. Orally intubated. Patient does have multiple carious teeth. Pupils are small bilaterally. Chest exam; diminished breath sounds bilaterally. No added sounds. S1-S2 audible, no murmurs. Regular rhythm. Abdomen exam; soft, no organomegaly. Bowel sounds audible. Extremity exam; 1+ generalized edema. Patient does have patchy ecchymosis. INTELLECTUAL PROPERTY COUNSEL exam; patient awake and mildly sedated. Results Result Diagram: 09/17/18 0400 09/17/18 0400 Results 24hrs Laboratory Tests Test 09/16/18 11:00 09/17/18 04:00 Blood Gas Specimen Source Blood arterial Arterial Blood Date Drawn 09/16/2018 10:56:41 AM Arterial Blood pH (Temp corrected) 7.388 Arterial Blood pCO2 (Temp correct) 31.4 L Arterial Blood pO2 (Temp corrected) 103.5 H Arterial Blood HCO3 18.5 L Arterial Blood Base Excess -5.6 L Arterial Blood Oxygen Saturation 96.5 Domenico Test ACCEPTAB Arterial Blood Gas Puncture Site Right Radial Arterial Blood Carboxyhemoglobin 0.3 Arterial Blood Methemoglobin 0.2 Blood Gas A-a O2 Differential 73.5 H Oxyhemoglobin Percent 96.0 Blood Gas Temperature 37.0 Blood Gas Actual Respiration Rate 33 Blood Gas Modality VENT - CPAP FiO2 30.0 Blood Gas Low PEEP Setting 5.0 Blood Gas Pressure Support 15 Blood Gas Notified Whom TM Blood Gas Notified Time 09/16/2018 11:27:19 AM White Blood Count 8.7 Red Blood Count 3.00 L Hemoglobin 9.2 L Hematocrit 29.2 L Mean Corpuscular Volume 97.3 Mean Corpuscular Hemoglobin 30.7 Mean Corpuscular Hemoglobin Concent 31.5 L Red Cell Distribution Width 15.2 H Platelet Count 125 L Mean Platelet Volume 12.4 H Immature Granulocytes % 0.600 H Neutrophils % 78.8 H Lymphocytes % 16.0 Monocytes % 2.9 Eosinophils % 1.6 Basophils % 0.1 Nucleated Red Blood Cells % 0.0 Immature Granulocytes # 0.050 H Neutrophils # 6.9 Lymphocytes # 1.4 Monocytes # 0.3 Eosinophils # 0.1 Basophils # 0.0 Nucleated Red Blood Cells # 0.0 Sodium Level 147 H Potassium Level 4.5 Chloride Level 119 H Carbon Dioxide Level 22 Anion Gap 6 Blood Urea Nitrogen 87 H Creatinine 2.21 H Est Glomerular Filtrat Rate mL/min Glucose Level 90 Calcium Level 7.5 L Phosphorus Level 4.9 Magnesium Level 2.4 Medications Medication Current Medications IV Flush (NS 3 ml) 3 ml PER PROTOCOL IV ; Start 08/29/18 at 06:00 Ondansetron HCl (Zofran Inj) 4 mg Q6H PRN IV NAUSEA/VOMITING Last administered on 08/31/18at 05:02; Admin Dose 4 MG; Start 08/29/18 at 06:00 Acetaminophen (Tylenol Tab) 650 mg Q6H PRN PO .PAIN 1-3 OR TEMP; Start 08/29/18 at 06:00 Magnesium Hydroxide (Milk Of Mag) 30 ml DAILY PRN PO .CONSTIPATION Last administered on 09/02/18at 05:16; Admin Dose 30 ML; Start 08/29/18 at 06:00 Alprazolam (Xanax) 0.5 mg QHS PO Last administered on 09/16/18at 20:35; Admin Dose 0.5 MG; Start 08/29/18 at 21:00 Escitalopram Oxalate (Lexapro) 20 mg DAILY PO Last administered on 09/17/18at 08:38; Admin Dose 20 MG; Start 08/30/18 at 09:00 Lorazepam (Ativan) 0.5 mg Q6H PRN PO ANXIETY; Start 09/02/18 at 13:00 Bisacodyl (Dulcolax Supp) 10 mg DAILY PRN [place] CONSTIPATION; Start 09/03/18 at 12:00 Heparin Sodium (Porcine) (Heparin (5000 Units/1ml)) 5,000 unit BID SC Last administered on 09/16/18at 09:09; Admin Dose 5,000 UNIT; Start 09/03/18 at 14:00 Hydralazine HCl (Apresoline) 10 mg Q3 PRN IV ELEVATED SYSTOLIC BP Last administered on 09/05/18at 19:48; Admin Dose 10 MG; Start 09/03/18 at 18:00 Albuterol/ Ipratropium (Duoneb) 3 ml Q2H RESP THERAPY PRN HHN SHORTNESS OF BREATH; Start 09/03/18 at 20:00 Lorazepam (Ativan) 1 mg Q6H PRN IV anxiety Last administered on 09/06/18at 00:00; Admin Dose 1 MG; Start 09/05/18 at 09:00 Propofol 100 ml @ 2.509 mls/ hr Q12H IV Last administered on 09/14/18 06:57; Admin Dose 10.037 MLS/HR; Start 09/06/18 at 09:30 Fentanyl 100 ml @ 2.5 mls/hr TITRATE IV Last administered on 09/07/18 09:19; Admin Dose 2.5 MLS/HR; Start 09/07/18 at 09:30 Multivitamins (Multivitamin) 30 ml DAILY NGT Last administered on 09/17/18 08:38; Admin Dose 30 ML; Start 09/07/18 at 14:30 Zinc Sulfate (Zinc Sulfate) 220 mg DAILY PO Last administered on 09/17/18 08:38; Admin Dose 220 MG; Start 09/07/18 at 14:30 Ascorbic Acid (Vitamin C) 500 mg DAILY NGT Last administered on 09/17/18 08:38; Admin Dose 500 MG; Start 09/07/18 at 14:30 Folic Acid (Folic Acid) 1 mg DAILY NGT Last administered on 09/17/18 08:38; Admin Dose 1 MG; Start 09/07/18 at 14:30 Petrolatum (Vaseline) APPLY TO MULTIPLE SC... BID TOP Last administered on 09/17/18 08:38; Admin Dose 1 EA; Start 09/08/18 at 09:00 IV Flush (NS 10 ml) 10 ml PRN PRN IV FLUSH LINE; Start 09/09/18 at 11:30 Vancomycin HCl (Vancomycin Oral Syringe) 250 mg Q6 PO Last administered on 09/17/18 01:10; Admin Dose 250 MG; Start 09/10/18 at 12:00 Dexmedetomidine HCl 200 mcg/ Sodium Chloride 50 ml @ 4.18 mls/hr TITRATE IV Last administered on 09/17/18 03:48; Admin Dose 4.18 MLS/HR; Start 09/12/18 at 14:00 Valacyclovir HCl (Valtrex) 500 mg BID PO Last administered on 09/17/18 08:38; Admin Dose 500 MG; Start 09/12/18 at 14:00 Triamcinolone Acetonide (Kenalog 0.1% Cr) 1 applic BID TOP Last administered on 09/17/18 08:38; Admin Dose 1 APPLIC; Start 09/12/18 at 14:00 Lactobacillus Acidophilus/ Rhamnosus (Culturelle) 1 cap BID PO Last administered on 09/17/18at 08:38; Admin Dose 1 CAP; Start 09/12/18 at 14:30 Sevelamer Carbonate (Renvela) 0.8 gm Q8H NGT Last administered on 09/16/18 20:34; Admin Dose 0.8 GM; Start 09/13/18 at 12:30 Lansoprazole (Prevacid) 30 mg BID@0600,1800 NGT Last administered on 09/16/18at 18:08; Admin Dose 30 MG; Start 09/15/18 at 18:00 Docusate Sodium (Colace Liquid Cup) 100 mg BID PO Last administered on 09/16/18at 20:35; Admin Dose 100 MG; Start 09/16/18 at 11:00 Docusate Sodium (Colace Liquid Cup) 100 mg Q12H PRN PO .CONSTIPATION; Start 09/16/18 at 11:00 Metolazone (Zaroxolyn) 10 mg ONCE ONCE PO ; Start 09/17/18 at 09:00; Stop 09/17/18 at 09:01 JUDE GODINEZ Sep 17, 2018 08:45
[2018-09-17] MEDS ORDERED: METOLAZONE 10 MG TAB PO ONE (09:00)
--- NOTE | 2018-09-17 10:20 | PN ---
DATE: 09/17/2018 SUBJECTIVE: The patient remains critically ill on full ventilatory support. OBJECTIVE: VITAL SIGNS: Blood pressure is 125/54, respirations 20, temperature 98.6. HEENT: Head is normocephalic. NECK: Supple. HEART: Regular rate. LUNGS: Show diminished breath sounds at the base. ABDOMEN: Soft, nontender to palpation. No rebound or guarding. EXTREMITIES: Negative for clubbing, cyanosis, positive edema. DERMATOLOGIC: No rashes. MUSCULOSKELETAL: No joint effusion. NEUROLOGIC: No change in exam. MEDICATIONS: Reviewed. LABORATORY DATA: Reviewed. IMAGING STUDIES: Reviewed. ASSESSMENT AND PLAN: 1. Nonoliguric acute kidney injury with unknown baseline creatinine. Etiology of acute kidney injur y is secondary to acute tubular necrosis, hemodynamics. The patient's renal function has been fluctu ating but overall stable. Continue to monitor. No immediate need for renal replacement therapy. 2. Volume overload, etiology is multifactorial secondary to sepsis, IV fluids, capillary leak. We w ill continue metolazone. Monitor I's and O's closely. 3. Hypernatremia. The patient has a free water deficit of approximately 2 liters, continue free anthony er flushes at current rate. 4. Anemia. Monitor hemoglobin and hematocrit levels. 5. Mineral bone disorder, monitor calcium and phosphorus levels. 6. Ventilator-dependent respiratory failure. Vent settings have been reviewed. Continue to monitor . 7. Sepsis secondary to pneumonia. Continue current antibiotic regimen. 8. Acute encephalopathy, etiology is toxic metabolic. 9. Diastolic heart failure. The patient is currently decompensated. Continue diuretic regimen. We will continue metolazone. 10. History of benign prostatic hypertrophy. Dictated By: ANGELA BALLARD DO NR/NTS Conf#: [id number] DID#: [id number] CC: SERGIO TREVINO MD; OLIVE ANDREWS MD;*End*
[2018-09-17] MEDS: FENTAnyl (DRIP) 1000 mcg/100mL 100 ML IV SCH (11:11)
--- NOTE | 2018-09-17 11:30 | CONS ---
Assessment/Plan Assessment/Plan Hospital Course (Demo Recall) No events overnight patient remains intubated he is awake comfortable no fevers overnight. WBC 8.7 platelets 125 neutrophils 78.8 BUN 87 creatinine 2.21 Antimicrobials: oral vancomycin, Valtrex Indwelling's: Endotracheal tube NG tube Mcgowan catheter Physical examination: Well-developed well-nourished elderly man who is awake in no distress. Head atraumatic normocephalic sclera nonicteric vehicle mucosa dry neck is supple chest rise symmetrical breath sounds with bilateral rhonchi. Heart: S1-S2. Abdomen soft bowel sounds present. Assessment: 1. Acute hypoxemic respiratory failure 2. Resolved pneumonia 3. CHF 4. Bradycardia 5. Acute kidney injury 6. Diarrhea 7. Leukocytosis, likely steroid-induced versus leukemoid reaction, resolving 8. Mouth lesions, on empiric Valtrex 9. Staph bacteremia cw contaminant Plan: Patient remains stable, continue present care, vent management per pulmonary rec-s, pending EGD to assess for melanotic stools Consultation Date/Type/Reason Admit Date/Time Aug 29, 2018 at 05:45 Initial Consult Date 08/30/18 Type of Consult id Requesting Provider: SERGIO TREVINO MD Date/Time of Note DATE: 09/17/18 TIME: 11:28 Exam/Review of Systems Exam Vitals Vital Signs Date Temp Pulse Resp B/P (MAP) Pulse Ox O2 O2 Flow FiO2 Time Delivery Rate 09/17/18 46 08:00 09/17/18 30 08:00 09/17/18 20 125/54 100 Mechanical 07:00 (77) Ventilator 09/17/18 97.4 04:00 Intake and Output 09/16/18 09/16/18 09/17/18 1515:00 23:00 07:00 IntakeIntake Total 2114 ml 1276.90 ml 33.44 ml OutputOutput Total 575 ml 1035 ml 450 ml BalanceBalance 1539 ml 241.90 ml -416.56 ml Results Result Diagram: 09/17/18 0400 09/17/18 0400 Results 24hrs Laboratory Tests Test 09/17/18 04:00 White Blood Count 8.7 Red Blood Count 3.00 L Hemoglobin 9.2 L Hematocrit 29.2 L Mean Corpuscular Volume 97.3 Mean Corpuscular Hemoglobin 30.7 Mean Corpuscular Hemoglobin Concent 31.5 L Red Cell Distribution Width 15.2 H Platelet Count 125 L Mean Platelet Volume 12.4 H Immature Granulocytes % 0.600 H Neutrophils % 78.8 H Lymphocytes % 16.0 Monocytes % 2.9 Eosinophils % 1.6 Basophils % 0.1 Nucleated Red Blood Cells % 0.0 Immature Granulocytes # 0.050 H Neutrophils # 6.9 Lymphocytes # 1.4 Monocytes # 0.3 Eosinophils # 0.1 Basophils # 0.0 Nucleated Red Blood Cells # 0.0 Sodium Level 147 H Potassium Level 4.5 Chloride Level 119 H Carbon Dioxide Level 22 Anion Gap 6 Blood Urea Nitrogen 87 H Creatinine 2.21 H Est Glomerular Filtrat Rate mL/min Glucose Level 90 Calcium Level 7.5 L Phosphorus Level 4.9 Magnesium Level 2.4 Medications Medication Current Medications IV Flush (NS 3 ml) 3 ml PER PROTOCOL IV ; Start 08/29/18 at 06:00 Ondansetron HCl (Zofran Inj) 4 mg Q6H PRN IV NAUSEA/VOMITING Last administered on 08/31/18at 05:02; Admin Dose 4 MG; Start 08/29/18 at 06:00 Acetaminophen (Tylenol Tab) 650 mg Q6H PRN PO .PAIN 1-3 OR TEMP; Start 08/29/18 at 06:00 Magnesium Hydroxide (Milk Of Mag) 30 ml DAILY PRN PO .CONSTIPATION Last administered on 09/02/18at 05:16; Admin Dose 30 ML; Start 08/29/18 at 06:00 Alprazolam (Xanax) 0.5 mg QHS PO Last administered on 09/16/18at 20:35; Admin Dose 0.5 MG; Start 08/29/18 at 21:00 Escitalopram Oxalate (Lexapro) 20 mg DAILY PO Last administered on 09/17/18at 08:38; Admin Dose 20 MG; Start 08/30/18 at 09:00 Lorazepam (Ativan) 0.5 mg Q6H PRN PO ANXIETY; Start 09/02/18 at 13:00 Bisacodyl (Dulcolax Supp) 10 mg DAILY PRN [place] CONSTIPATION; Start 09/03/18 at 12:00 Heparin Sodium (Porcine) (Heparin (5000 Units/1ml)) 5,000 unit BID SC Last administered on 09/17/18at 08:41; Admin Dose 5,000 UNIT; Start 09/03/18 at 14:00 Hydralazine HCl (Apresoline) 10 mg Q3 PRN IV ELEVATED SYSTOLIC BP Last administered on 09/05/18 19:48; Admin Dose 10 MG; Start 09/03/18 at 18:00 Albuterol/ Ipratropium (Duoneb) 3 ml Q2H RESP THERAPY PRN HHN SHORTNESS OF BREATH; Start 09/03/18 at 20:00 Lorazepam (Ativan) 1 mg Q6H PRN IV anxiety Last administered on 09/06/18 00:00; Admin Dose 1 MG; Start 09/05/18 at 09:00 Propofol 100 ml @ 2.509 mls/ hr Q12H IV Last administered on 09/17/18 10:38; Admin Dose 2.509 MLS/HR; Start 09/06/18 at 09:30 Fentanyl 100 ml @ 2.5 mls/hr TITRATE IV Last administered on 09/17/18 11:11; Admin Dose 2.5 MLS/HR; Start 09/07/18 at 09:30 Multivitamins (Multivitamin) 30 ml DAILY NGT Last administered on 09/17/18 08:38; Admin Dose 30 ML; Start 09/07/18 at 14:30 Zinc Sulfate (Zinc Sulfate) 220 mg DAILY PO Last administered on 09/17/18 08:38; Admin Dose 220 MG; Start 09/07/18 at 14:30 Ascorbic Acid (Vitamin C) 500 mg DAILY NGT Last administered on 09/17/18 08:38; Admin Dose 500 MG; Start 09/07/18 at 14:30 Folic Acid (Folic Acid) 1 mg DAILY NGT Last administered on 09/17/18 08:38; Admin Dose 1 MG; Start 09/07/18 at 14:30 Petrolatum (Vaseline) APPLY TO MULTIPLE SC... BID TOP Last administered on 09/17/18 08:38; Admin Dose 1 EA; Start 09/08/18 at 09:00 IV Flush (NS 10 ml) 10 ml PRN PRN IV FLUSH LINE; Start 09/09/18 at 11:30 Vancomycin HCl (Vancomycin Oral Syringe) 250 mg Q6 PO Last administered on 09/17/18 01:10; Admin Dose 250 MG; Start 09/10/18 at 12:00 Valacyclovir HCl (Valtrex) 500 mg BID PO Last administered on 09/17/18 08:38; Admin Dose 500 MG; Start 09/12/18 at 14:00 Triamcinolone Acetonide (Kenalog 0.1% Cr) 1 applic BID TOP Last administered on 09/17/18 08:38; Admin Dose 1 APPLIC; Start 09/12/18 at 14:00 Lactobacillus Acidophilus/ Rhamnosus (Culturelle) 1 cap BID PO Last administered on 09/17/18 08:38; Admin Dose 1 CAP; Start 09/12/18 at 14:30 Sevelamer Carbonate (Renvela) 0.8 gm Q8H NGT Last administered on 09/16/18 20:34; Admin Dose 0.8 GM; Start 09/13/18 at 12:30 Lansoprazole (Prevacid) 30 mg BID@0600,1800 NGT Last administered on 09/16/18 18:08; Admin Dose 30 MG; Start 09/15/18 at 18:00 Docusate Sodium (Colace Liquid Cup) 100 mg BID PO Last administered on 09/16/18 20:35; Admin Dose 100 MG; Start 09/16/18 at 11:00 Docusate Sodium (Colace Liquid Cup) 100 mg Q12H PRN PO .CONSTIPATION; Start 09/16/18 at 11:00 TAYLOR RIZZO NP Sep 17, 2018 11:30
--- NOTE | 2018-09-17 13:00 | PREAC ---
Date/Time of Note Date/Time of Note DATE: 09/17/18 TIME: 12:58 Anesthesia Eval and Record Evaluation Time Pre-Procedure Interview DATE: 09/17/18 TIME: 12:58 Age 87 Sex male NPO: 8 hrs Preoperative diagnosis GI bleed Planned procedure EGD Past Medical History Past Medical History: Includes Cardio: HTN, Dyslipidemia, Arrythmia Pulm: COPD, Sleep Apnea GI: Morbid obesity Surgery & Anesthesia Issues No known issue Meds Anticoagulation: No Beta Heriberto within 24 hr: No Reason Beta Heriberto not given: Pt. not on B-Heriberto Reported Medications Losartan Potassium* (Losartan Potassium*) 50 Mg Tablet, 50 MG PO DAILY, TAB 08/29/18 Simvastatin (Simvastatin) 20 Mg Tablet, 20 MG PO QHS for 90 Days, #90 08/29/18 Furosemide* (Furosemide*) 40 Mg Tablet, 40 MG PO DAILY for 90 Days, #90 08/29/18 Potassium Chloride (K-Tab ER) 8 Meq Tablet.er, 8 MEQ PO BID for 90 Days, #180 08/29/18 Escitalopram Oxalate* (Escitalopram Oxalate*) 10 Mg Tablet, 20 MG PO DAILY for 90 Days, #90 08/29/18 Hydrocodone Bit-Acetaminophen (Hydrocodone Bit-APAP) 5-325MG Tablet, 1 TAB PO DAILY 08/29/18 Dexlansoprazole (Dexilant) 60 Mg Tree., 60 MG PO DAILY for 90 Days, #90 08/29/18 Amiodarone Hcl* (Amiodarone Hcl*) 200 Mg Tablet, 200 MG PO DAILY for 90 Days, #90 08/29/18 Alprazolam* (Alprazolam*) 0.5 Mg Tablet, 0.5 MG PO QHS for 30 Days, #30 08/29/18 Current Medications IV Flush (NS 3 ml) 3 ml PER PROTOCOL IV ; Start 08/29/18 at 06:00 Ondansetron HCl (Zofran Inj) 4 mg Q6H PRN IV NAUSEA/VOMITING Last administered on 08/31/18at 05:02; Admin Dose 4 MG; Start 08/29/18 at 06:00 Acetaminophen (Tylenol Tab) 650 mg Q6H PRN PO .PAIN 1-3 OR TEMP; Start 08/29/18 at 06:00 Magnesium Hydroxide (Milk Of Mag) 30 ml DAILY PRN PO .CONSTIPATION Last administered on 09/02/18 05:16; Admin Dose 30 ML; Start 08/29/18 at 06:00 Alprazolam (Xanax) 0.5 mg QHS PO Last administered on 09/16/18 20:35; Admin Dose 0.5 MG; Start 08/29/18 at 21:00 Escitalopram Oxalate (Lexapro) 20 mg DAILY PO Last administered on 09/17/18 08:38; Admin Dose 20 MG; Start 08/30/18 at 09:00 Lorazepam (Ativan) 0.5 mg Q6H PRN PO ANXIETY; Start 09/02/18 at 13:00 Bisacodyl (Dulcolax Supp) 10 mg DAILY PRN [place] CONSTIPATION; Start 09/03/18 at 12:00 Heparin Sodium (Porcine) (Heparin (5000 Units/1ml)) 5,000 unit BID SC Last administered on 09/17/18 08:41; Admin Dose 5,000 UNIT; Start 09/03/18 at 14:00 Hydralazine HCl (Apresoline) 10 mg Q3 PRN IV ELEVATED SYSTOLIC BP Last admini stered on 09/05/18 19:48; Admin Dose 10 MG; Start 09/03/18 at 18:00 Albuterol/ Ipratropium (Duoneb) 3 ml Q2H RESP THERAPY PRN HHN SHORTNESS OF BREATH; Start 09/03/18 at 20:00 Lorazepam (Ativan) 1 mg Q6H PRN IV anxiety Last administered on 09/06/18 00:00; Admin Dose 1 MG; Start 09/05/18 at 09:00 Propofol 100 ml @ 2.509 mls/ hr Q12H IV Last administered on 09/17/18 10:38; Admin Dose 2.509 MLS/HR; Start 09/06/18 at 09:30 Fentanyl 100 ml @ 2.5 mls/hr TITRATE IV Last administered on 09/17/18 11:11; Admin Dose 2.5 MLS/HR; Start 09/07/18 at 09:30 Multivitamins (Multivitamin) 30 ml DAILY NGT Last administered on 09/17/18 08:38; Admin Dose 30 ML; Start 09/07/18 at 14:30 Zinc Sulfate (Zinc Sulfate) 220 mg DAILY PO Last administered on 09/17/18 08:38; Admin Dose 220 MG; Start 09/07/18 at 14:30 Ascorbic Acid (Vitamin C) 500 mg DAILY NGT Last administered on 09/17/18 08:38; Admin Dose 500 MG; Start 09/07/18 at 14:30 Folic Acid (Folic Acid) 1 mg DAILY NGT Last administered on 09/17/18 08:38; Admin Dose 1 MG; Start 09/07/18 at 14:30 Petrolatum (Vaseline) APPLY TO MULTIPLE SC... BID TOP Last administered on 09/17/18 08:38; Admin Dose 1 EA; Start 09/08/18 at 09:00 IV Flush (NS 10 ml) 10 ml PRN PRN IV FLUSH LINE; Start 09/09/18 at 11:30 Vancomycin HCl (Vancomycin Oral Syringe) 250 mg Q6 PO Last administered on 09/17/18 01:10; Admin Dose 250 MG; Start 09/10/18 at 12:00 Valacyclovir HCl (Valtrex) 500 mg BID PO Last administered on 09/17/18 08:38; Admin Dose 500 MG; Start 09/12/18 at 14:00 Triamcinolone Acetonide (Kenalog 0.1% Cr) 1 applic BID TOP Last administered on 09/17/18 08:38; Admin Dose 1 APPLIC; Start 09/12/18 at 14:00 Lactobacillus Acidophilus/ Rhamnosus (Culturelle) 1 cap BID PO Last administered on 09/17/18 08:38; Admin Dose 1 CAP; Start 09/12/18 at 14:30 Sevelamer Carbonate (Renvela) 0.8 gm Q8H NGT Last administered on 09/16/18 20:34; Admin Dose 0.8 GM; Start 09/13/18 at 12:30 Lansoprazole (Prevacid) 30 mg BID@0600,1800 NGT Last administered on 09/16/18 18:08; Admin Dose 30 MG; Start 09/15/18 at 18:00 Docusate Sodium (Colace Liquid Cup) 100 mg BID PO Last administered on 09/16/18 20:35; Admin Dose 100 MG; Start 09/16/18 at 11:00 Docusate Sodium (Colace Liquid Cup) 100 mg Q12H PRN PO .CONSTIPATION; Start 09/16/18 at 11:00 Meds reviewed: Yes Allergies Coded Allergies: No Known Allergy (Unverified , 09/14/18) Allergies Reviewed: Yes Labs/Studies Labs Reviewed: Reviewed by anesthesiologist Result Diagram: 09/17/18 0400 09/17/18 0400 Laboratory Tests 09/17/18 04:00 test: N/A Studies: ECG Pre-procedure Exam Last vitals Vital Signs Date Temp Pulse Resp B/P (MAP) Pulse Ox O2 O2 Flow FiO2 Time Delivery Rate 09/17/18 51 12:00 09/17/18 21 107/47 Mechanical 11:00 (67) Ventilator 09/17/18 100 30 11:00 09/17/18 98.0 08:00 Airway: Adequate mouth opening, Adequate thyromental dist Mallampati: Mallampati III Teeth: Normal Lung: Abnormal (S/P intubation) Heart: Abnormal ASA Physical Status ASA physical status: 4 Emergency: E Planned Anesthetic General/MAC: ETT Planned Pain Management Parenteral pain med Pre-operative Attestations Prior to commencing anesthesia and surgery, the patient was re-evaluated, there was verification of: *The patient's identity *The results of appropriate recent lab work and preoperative vital signs *The above evaluation not changing prior to induction *Anesthetic plan, risk benefits, alternative and complications discussed with patient/family; questions answered; patient/family understands, accepts and wishes to proceed. ANYA MATA MD Sep 17, 2018 13:00
--- NOTE | 2018-09-17 13:19 | PAC ---
Date/Time of Note Date/Time of Note DATE: 09/17/18 TIME: 13:18 Post-Anesthesia Notes Post-Anesthesia Note Last documented vital signs Vital Signs Date Temp Pulse Resp B/P (MAP) Pulse Ox O2 O2 Flow FiO2 Time Delivery Rate 09/17/18 51 12:00 09/17/18 21 107/47 Mechanical 11:00 (67) Ventilator 09/17/18 100 30 11:00 09/17/18 98.0 08:00 Activity: WNL Respiratory function: WNL Cardiovascular function: WNL Mental status: Baseline Pain reasonably controlled: Yes Hydration appropriate: Yes Nausea/Vomiting absent: Yes Comments BP:112/67, P:72, Spo2:100%, T:98,8 ANYA MATA MD Sep 17, 2018 13:19
[2018-09-17] MEDS ORDERED: PEG/ELECTROLYTES 4L BTL PO STA (13:25)
[2018-09-17] MEDS ORDERED: PEG/ELECTROLYTES 4L BTL PO ONE (14:30)
--- NOTE | 2018-09-17 16:22 | PN ---
DATE: 09/17/2018 SUBJECTIVE: The patient is status post EGD as he was noted to have positive fecal occult blood and d rop in his hemoglobin and increased BUN and creatinine which does suggest GI bleed. The patient's EG D apparently did not show any evidence of bleeding. We will follow up with report. The patient has been doing better after the transfusion, but still not doing great on CPAP trial. Continue to follow . Case was discussed extensively with the nephew. We will transfuse 1 more unit of PRBC. PHYSICAL EXAMINATION: VITAL SIGNS: Temperature 98, pulse is 51, respirations 21, blood pressure 107/47, saturation 100% on 30% of FiO2. GENERAL: The patient is currently sedated. HEENT: The patient is pale. CARDIOVASCULAR: S1, S2. LUNGS: Decreased lung sounds bilaterally. ABDOMEN: Soft. EXTREMITIES: A +1 edema of the lower extremity, upper extremity trace edema, much improved. LABORATORY DATA: White count 8.7, hemoglobin 9.2, hematocrit 29, platelet counts of 125, neutrophils 79%, lymphs 16%. Chemistry: Sodium 147, potassium 4.5, chloride 119, bicarbonate 22, BUN is 87, cr eatinine 2.21, glucose of 90. Respiratory culture on 09/14/2018 showed Leah albicans. DIAGNOSTIC DATA: Chest x-ray was reviewed which showed the following: Interval increase in patchy i nfiltrates throughout both lungs with small to moderate pleural effusion, stable central pulmonary va scular congestion, mild interstitial prominence in both lungs, cardiomegaly with calcified atheroscle rosis in the aorta. MEDICATIONS: 1. GoLYTELY x1. The patient is to be prepared for colonoscopy. 2. Colace 100 b.i.d., hold for diarrhea. 3. Prevacid 30 mg twice a day. 4. Renvela 0.8 q.8 hours. 5. Culturelle b.i.d. 6. mg b.i.d. 7. Kenalog as directed. 8. Vancomycin 250 q.6. 9. Petroleum Vaseline b.i.d. 10. Multivitamin 1 tab daily. 11. Zinc sulfate 220 daily. 12. Vitamin C 500 mg daily. 13. Folic acid 1 mg daily. 14. Ativan. 15. DuoNeb. 16. Hydralazine. 17. Heparin 5000 b.i.d. 18. Ativan p.r.n. 19. Lexapro 20 mg daily. 20. Xanax 0.5 at bedtime. 21. Zofran. 22. Tylenol. ASSESSMENT AND PLAN: This is an 87-year-old Maur[place] male with history of atrial fibrillation, hyper tension, low back pain, who presented with shortness of breath, was treated for pneumonia. Unfortuna tely, condition worsened requiring intubation, mechanical ventilation, chest x-ray has been suggestiv e of multifocal pneumonia. 1. Respiratory: Status post treated for pneumonia. ID is following. Now off antibiotics. Continu e serial chest x-ray. Lasix p.r.n. 2. Cardiovascular: The patient with persistent bradycardia. Blood pressure remained stable. Obser ve. Continue deep venous thrombosis prophylaxis. 3. Anemia with evidence of gastrointestinal bleed. We will transfuse another unit of PRBC in the se tting of bleeding and plan for weaning. We wanted to make sure he is strong enough to be extubated a s patient has overall generalized weakness. The patient has been doing better after the 1 unit of [place] BC, so we will transfuse 1 more unit due to gastrointestinal bleed. The patient is to undergo colono scopy. 4. Multiple wounds. Wound care consult is following. Continue above the creams and treatment plan. 5. Acute renal failure, probably due to diuretic therapy. Observe. 6. Neurologically sedated. 7. The patient is full code. 8. ID is managing antibiotics and antifungal will be given as needed. 9. Empirically on treatment for Clostridium difficile colitis. Now, white count is normal. The pat ient is still with persistent diarrhea. Again, plan of transfusion. Continue weaning trial. Hopefu lly, we can prevent trach placement. Case was discussed with nephew. He understands the plan of car e. Dictated By: SERGIO CERVANTES/NEHAL Conf#: [id number] DID#: [id number] CC: OLIVE ANDREWS MD;*End*
[2018-09-17] MEDS: ALBUTEROL/IPRATROPIUM (NEB) 3 ML AMP HHN PRN (21:57)
[2018-09-18] VITALS (69 sets, daily range): BP systolic 98–174; BP diastolic 43–97; PULSE 47–92; RESP 13–34
[2018-09-18] MEDS: PROPOFOL 100 ML IV SCH ×2 (03:27→07:46)
[2018-09-18] MEDS: SEVELAMER CARBONATE 0.8 GM PKT NGT SCH ×3 (03:27→20:21)
[2018-09-18] MEDS: LANSOPRAZOLE 30 MG CAP NGT SCH ×2 (05:26→17:34)
[2018-09-18] MEDS: VANCOMYCIN HCL 250 MG/5ML POSYG PO SCH ×4 (05:26→23:12)
--- NOTE | 2018-09-18 07:06 | CONS ---
Consult Date/Type/Reason Admit Date/Time Aug 29, 2018 at 05:45 Initial Consult Date 09/07/18 Type of Consultation: cv Requesting Provider: SERGIO TREVINO MD Date/Time of Note DATE: 09/18/18 TIME: 07:04 Subjective Interventional cardiology follow-up progress note Subjective: Case discussed with the staff and telemetry was reviewed. Patient has remained in sinus rhythm /. sinus bradycardia. < 3 second sinus pauses noted No significant other arrhythmias reported. no afib Patient remains intubated on the vent in the ICU nonverbal. min secretions per staff + Diarrhea O General: Elderly gentleman. Status post intubation on the vent HEENT: NC/AT. pupils are equal. round. NECK: NO JVD. no stridor. CV: RRR. systolic murmur; no gallop or rubs. PULM: no wheezing + rhonchi. GI: SOFT, NT, ND, no rebound or guarding Extremity: trace B/L LE edema. no clubbing. neuro: sedated. lethargic Psych: calm rectal: deferred EKG normal sinus rhythm Chest x-ray on admission showed: 1. Right basilar interstitial opacities, new from the prior examination from a few hours prior, likely reflecting atelectasis. 2. Mild prominence of the interstitial markings, may reflect mild underlying interstitial edema or chronic lung changes. 3. Mild cardiomegaly and aortic atherosclerosis. Chest x-ray done on 09/06/2018 shows: 1. Atherosclerosis of the thoracic aorta. 2. Persistent bilateral pulmonary infiltrates which could represent infection or non infection related edema or combination of the 2. 3. Endotracheal and nasogastric tubes in place. Echocardiogram done on 08/29/2018 which was personally reviewed shows: There is mild to mod enlargement of left atrium. Normal left ventricular systolic function. Normal left ventricular cavity size. Normal left ventricular wall thickness. Ejection fraction is visually estimated at 60-65 %. Normal appearance of the mitral valve. Mild mitral valve regurgitation. Normal appearance of the aortic valve. No aortic regurgitation. Normal appearance of the tricuspid valve. The estimated Peak RVSP is 53 mmHg. There is mild tricuspid regurgitation. The IVC is not well visualized. Objective Vitals Vital Signs Date Temp Pulse Resp B/P (MAP) Pulse Ox O2 O2 Flow FiO2 Time Delivery Rate 09/18/18 54 20 100 30 05:00 09/18/18 121/48 Mechanical 05:00 (72) Ventilator 09/18/18 97.8 04:15 Intake and Output 09/17/18 09/17/18 09/18/18 1515:00 23:00 07:00 IntakeIntake Total 16.7 ml 3157.5 ml 1750 ml OutputOutput Total 1300 ml 1875 ml 1000 ml BalanceBalance -1283.3 ml 1282.5 ml 750 ml Results/Medications Result Diagram: 09/17/18 0400 09/17/18 0400 Home Meds Reported Medications Losartan Potassium* (Losartan Potassium*) 50 Mg Tablet, 50 MG PO DAILY, TAB 08/29/18 Simvastatin (Simvastatin) 20 Mg Tablet, 20 MG PO QHS for 90 Days, #90 08/29/18 Furosemide* (Furosemide*) 40 Mg Tablet, 40 MG PO DAILY for 90 Days, #90 08/29/18 Potassium Chloride (K-Tab ER) 8 Meq Tablet.er, 8 MEQ PO BID for 90 Days, #180 08/29/18 Escitalopram Oxalate* (Escitalopram Oxalate*) 10 Mg Tablet, 20 MG PO DAILY for 90 Days, #90 08/29/18 Hydrocodone Bit-Acetaminophen (Hydrocodone Bit-APAP) 5-325MG Tablet, 1 TAB PO DAILY 08/29/18 Dexlansoprazole (Dexilant) 60 Mg Tree., 60 MG PO DAILY for 90 Days, #90 08/29/18 Amiodarone Hcl* (Amiodarone Hcl*) 200 Mg Tablet, 200 MG PO DAILY for 90 Days, #90 08/29/18 Alprazolam* (Alprazolam*) 0.5 Mg Tablet, 0.5 MG PO QHS for 30 Days, #30 08/29/18 Medications Current Medications IV Flush (NS 3 ml) 3 ml PER PROTOCOL IV ; Start 08/29/18 at 06:00 Ondansetron HCl (Zofran Inj) 4 mg Q6H PRN IV NAUSEA/VOMITING Last administered on 08/31/18at 05:02; Admin Dose 4 MG; Start 08/29/18 at 06:00 Acetaminophen (Tylenol Tab) 650 mg Q6H PRN PO .PAIN 1-3 OR TEMP; Start 08/29/18 at 06:00 Magnesium Hydroxide (Milk Of Mag) 30 ml DAILY PRN PO .CONSTIPATION Last administered on 09/02/18 05:16; Admin Dose 30 ML; Start 08/29/18 at 06:00 Escitalopram Oxalate (Lexapro) 20 mg DAILY PO Last administered on 09/17/18 08:38; Admin Dose 20 MG; Start 08/30/18 at 09:00 Lorazepam (Ativan) 0.5 mg Q6H PRN PO ANXIETY; Start 09/02/18 at 13:00 Bisacodyl (Dulcolax Supp) 10 mg DAILY PRN [place] CONSTIPATION; Start 09/03/18 at 12:00 Heparin Sodium (Porcine) (Heparin (5000 Units/1ml)) 5,000 unit BID SC Last administered on 09/17/18 21:28; Admin Dose 5,000 UNIT; Start 09/03/18 at 14:00 Hydralazine HCl (Apresoline) 10 mg Q3 PRN IV ELEVATED SYSTOLIC BP Last administered on 09/05/18 19:48; Admin Dose 10 MG; Start 09/03/18 at 18:00 Albuterol/ Ipratropium (Duoneb) 3 ml Q2H RESP THERAPY PRN HHN SHORTNESS OF BREATH Last administered on 09/17/18 21:57; Admin Dose 3 ML; Start 09/03/18 at 20:00 Lorazepam (Ativan) 1 mg Q6H PRN IV anxiety Last administered on 09/06/18 00:00; Admin Dose 1 MG; Start 09/05/18 at 09:00 Propofol 100 ml @ 2.509 mls/ hr Q12H IV Last administered on 09/18/18 03:27; Admin Dose 15.055 MLS/HR; Start 09/06/18 at 09:30 Fentanyl 100 ml @ 2.5 mls/hr TITRATE IV Last administered on 09/17/18 11:11; Admin Dose 2.5 MLS/HR; Start 09/07/18 at 09:30 Multivitamins (Multivitamin) 30 ml DAILY NGT Last administered on 09/17/18 08:38; Admin Dose 30 ML; Start 09/07/18 at 14:30 Zinc Sulfate (Zinc Sulfate) 220 mg DAILY PO Last administered on 09/17/18 08:38; Admin Dose 220 MG; Start 09/07/18 at 14:30 Ascorbic Acid (Vitamin C) 500 mg DAILY NGT Last administered on 09/17/18 08:38; Admin Dose 500 MG; Start 09/07/18 at 14:30 Folic Acid (Folic Acid) 1 mg DAILY NGT Last administered on 09/17/18 08:38; Admin Dose 1 MG; Start 09/07/18 at 14:30 Petrolatum (Vaseline) APPLY TO MULTIPLE SC... BID TOP Last administered on 09/17/18 21:02; Admin Dose 1 EA; Start 09/08/18 at 09:00 IV Flush (NS 10 ml) 10 ml PRN PRN IV FLUSH LINE; Start 09/09/18 at 11:30 Vancomycin HCl (Vancomycin Oral Syringe) 250 mg Q6 PO Last administered on 09/18/18 05:26; Admin Dose 250 MG; Start 09/10/18 at 12:00 Valacyclovir HCl (Valtrex) 500 mg BID PO Last administered on 09/17/18 21:03; Admin Dose 500 MG; Start 09/12/18 at 14:00 Triamcinolone Acetonide (Kenalog 0.1% Cr) 1 applic BID TOP Last administered on 09/17/18 08:38; Admin Dose 1 APPLIC; Start 09/12/18 at 14:00 Lactobacillus Acidophilus/ Rhamnosus (Culturelle) 1 cap BID PO Last administered on 09/17/18 17:34; Admin Dose 1 CAP; Start 09/12/18 at 14:30 Sevelamer Carbonate (Renvela) 0.8 gm Q8H NGT Last administered on 09/18/18 03:27; Admin Dose 0.8 GM; Start 09/13/18 at 12:30 Lansoprazole (Prevacid) 30 mg BID@0600,1800 NGT Last administered on 09/18/18 05:26; Admin Dose 30 MG; Start 09/15/18 at 18:00 Docusate Sodium (Colace Liquid Cup) 100 mg BID PO Last administered on 09/17/18 21:02; Admin Dose 100 MG; Start 09/16/18 at 11:00 Docusate Sodium (Colace Liquid Cup) 100 mg Q12H PRN PO .CONSTIPATION; Start 09/16/18 at 11:00 Assessment/Plan Hospital Course (Demo Recall) 1. sick sinus with Marked sinus bradycardia: So far does not appear to be: Any significant symptoms. We will continue to monitor only 2. Acute hypoxemic respiratory failure status post intubation on the vent 3. Pulmonary hypertension 4. History of proximal atrial fibrillation: currently has remained in normal sinus rhythm/sinus bradycardia 5. Hypertension 6. Urinary retention status post surgery 7. Pneumonia possible COPD possible ARDS 8. Acute renal failure Recommendations: off the amiodarone given his marked bradycardia as well as his significant pulmonary disease. Continue blood pressure control. Vent support will be continued managed as per pulmonary. weaning as tolerated Respiratory care to be continued. Continue with ICU care as long as patient is in the ventilator. Antibiotic management as per internal medicine consultants We will continue to monitor on telemetry thyroid management as per IM . TSH was normal as of 09/12/18 Antibiotic as per internal medicine awaiting for endoscopy Thank you for his referral. We will continue to follow along with you as needed over the weekend . AMANDA DUNBAR MD [facility] AMANDA DUNBAR MD Sep 18, 2018 07:06
[2018-09-18] MEDS: BALSAM PERU/CASTOR OIL 60 GM TUBE TOP SCH ×2 (08:09→21:53)
[2018-09-18] MEDS: TRIAMCINOLONE ACET 0.1% 15 GM CR TOP SCH ×2 (08:09→21:53)
[2018-09-18] MEDS: LACTOBACILLUS RHAMNOSUS CAP PO SCH ×2 (08:11→20:21)
[2018-09-18] MEDS: FOLIC ACID 1 MG TAB NGT SCH (08:11)
[2018-09-18] MEDS: PETROLATUM 5 GM OINT TOP SCH ×2 (08:11→21:53)
[2018-09-18] MEDS: valACYclovir 500 MG TAB PO SCH ×2 (08:11→20:21)
[2018-09-18] MEDS: ASCORBIC ACID 500 MG TAB NGT SCH (08:11)
[2018-09-18] MEDS: MULTIVITAMINS 30 ML CUP NGT SCH (08:11)
[2018-09-18] MEDS: ZINC SULFATE 220 MG CAP PO SCH (08:11)
[2018-09-18] MEDS: ESCITALOPRAM 10 MG TAB PO SCH (08:11)
[2018-09-18] MEDS: DOCUSATE SODIUM 10 MG/ML (10ML CUP) PO SCH ×2 (08:11→20:21)
[2018-09-18] MEDS: HEPARIN 5,000 UNIT/1 ML VIAL SC SCH ×2 (08:13→22:00)
--- NOTE | 2018-09-18 08:31 | PN ---
DATE: 09/18/2018 SUBJECTIVE: The patient is stable on full ventilatory support. No other acute events noted. No hem optysis, hematemesis or hematochezia. OBJECTIVE: VITAL SIGNS: Blood pressure is 121/48, respirations 20, pulse 54, temperature 98.6. HEENT: Head is normocephalic. NECK: Supple. HEART: Regular rate. LUNGS: Show diminished breath sounds at the base. ABDOMEN: Soft, nontender to palpation without rebound or guarding. EXTREMITIES: Negative for clubbing, cyanosis, no edema. DERMATOLOGIC: No rashes. MUSCULOSKELETAL: No joint effusion. NEUROLOGIC: No change in exam. MEDICATIONS: Reviewed. LABORATORY DATA: Reviewed. IMAGING STUDIES: Reviewed. ASSESSMENT AND PLAN: 1. Nonoliguric acute kidney injury with unknown baseline creatinine. Etiology of acute kidney injur y is secondary to acute tubular necrosis and hemodynamics. Renal function has been fluctuating, but overall stable. Continue current treatment plans, supportive care, and renally dose all medications. 2. Volume overload. Etiology is multifactorial secondary to sepsis, heart failure, capillary leak. We will continue diuretic therapy, monitor I's and O's and electrolytes closely. 3. Hypernatremia. Continue free water flushes. 4. Anemia with evidence of gastrointestinal bleed. The patient is status post blood transfusion. P ending EGD, colonoscopy. Continue to monitor. Continue proton pump inhibitor. 5. Mineral bone disorder. Monitor calcium and phosphorus levels. 6. Ventilator-dependent respiratory failure. Vent settings have been reviewed. Continue to monitor . 7. Sepsis secondary to pneumonia. Continue current antibiotic regimen. 8. Acute encephalopathy, etiology is toxic metabolic. 9. History of benign prostatic hypertrophy. 10. History of diastolic heart failure. Continue medical management as stated above. Dictated By: ANGELA BALLARD DO NR/NTS Conf#: [id number] DID#: [id number] CC: OLIVE ANDREWS MD; SERGIO TREVINO MD;*End*
--- NOTE | 2018-09-18 08:45 | CONS ---
Assessment/Plan Assessment/Plan Assessment/Plan (Daily) Ventilator setting; AC of 20, tidal volume 500, PEEP of 5, 30% FiO2. Patient is currently on propofol at 35 mics per kilogram per minute. Assessment and recommendations; 1. Patient admitted with severe bilateral pneumonia requiring intubation after failing BiPAP. Chest x-ray has shown significant improvement with marked improvement in oxygenation however patient has failed multiple weaning trials due to severe underlying generalized weakness. 2. Underlying COPD. 3. History of cardiac arrhythmia, patient in sinus rhythm. 4. Chronic renal insufficiency with stable serum creatinine. 5. Intermittent pulmonary edema with interval improvement as well. 6. Anemia and thrombocytopenia. Status post EGD yesterday scheduled for colonoscopy today. Continue current supportive care. Weaning from ventilator to be deferred until colonoscopy is performed. Regardless, patient likely would need to have a tracheostomy performed. Consultation Date/Type/Reason Admit Date/Time Aug 29, 2018 at 05:45 Initial Consult Date 08/30/18 Type of Consult Pulmonary Patient condition is tenuous. On BiPAP. Having significant chest congestion. Take slightly yellow-tinged secretions noted on suctioning. Patient requiring deep nasotracheal suctioning. General exam; elderly male, mildly lethargic. Requesting Provider: SERGIO TREVINO MD Date/Time of Note DATE: 09/18/18 TIME: 08:42 24 HR Interval Summary Free Text/Dictation Patient's condition is critical. Underwent EGD yesterday. Scheduled for colonoscopy today. Patient has remained hemodynamically stable. General exam; elderly male, orally intubated, sedated, currently in no distress. Exam/Review of Systems Exam Vitals Vital Signs Date Temp Pulse Resp B/P (MAP) Pulse Ox O2 O2 Flow FiO2 Time Delivery Rate 09/18/18 47 20 139/85 100 Mechanical 07:30 (103) Ventilator 09/18/18 30 05:00 09/18/18 97.8 04:15 Intake and Output 09/17/18 09/17/18 09/18/18 1515:00 23:00 07:00 IntakeIntake Total 16.7 ml 3185.101 ml 1870.440 ml OutputOutput Total 1300 ml 1875 ml 1375 ml BalanceBalance -1283.3 ml 1310.101 ml 495.440 ml Exam H ENT exam; supple neck, no JVD. No lymphadenopathy. Midline trachea. No thyromegaly. Orally intubated. Patient has carious teeth. No neck masses. Pupils are small bilaterally. Chest exam; diminished but clear breath sounds. S1-S2 audible, no murmurs. Regular rhythm. Abdomen exam; soft, nondistended. No organomegaly. Bowel sounds are audible. Extremity exam; no peripheral edema clubbing. DRUG SAFETY ASSISTANT exam; patient is sedated. Results Result Diagram: 09/18/18 0730 09/18/18 0730 Results 24hrs Laboratory Tests Test 09/18/18 07:30 White Blood Count 5.3 # Red Blood Count 2.98 L Hemoglobin 9.7 L Hematocrit 28.1 L Mean Corpuscular Volume 94.3 Mean Corpuscular Hemoglobin 32.6 Mean Corpuscular Hemoglobin Concent 34.5 Red Cell Distribution Width 14.6 H Platelet Count 128 L Mean Platelet Volume 12.0 H Immature Granulocytes % 0.600 H Neutrophils % Lymphocytes % Monocytes % Eosinophils % Basophils % Nucleated Red Blood Cells % 0.0 Immature Granulocytes # 0.030 Neutrophils # Lymphocytes # Monocytes # Eosinophils # Basophils # Nucleated Red Blood Cells # Sodium Level 146 H Potassium Level 4.2 Chloride Level 116 H Carbon Dioxide Level 23 Anion Gap 7 Blood Urea Nitrogen 65 H Creatinine 1.98 H Est Glomerular Filtrat Rate mL/min Glucose Level 88 Calcium Level 7.2 L Phosphorus Level 4.6 Magnesium Level 2.1 Medications Medication Current Medications IV Flush (NS 3 ml) 3 ml PER PROTOCOL IV ; Start 08/29/18 at 06:00 Ondansetron HCl (Zofran Inj) 4 mg Q6H PRN IV NAUSEA/VOMITING Last administered on 08/31/18at 05:02; Admin Dose 4 MG; Start 08/29/18 at 06:00 Acetaminophen (Tylenol Tab) 650 mg Q6H PRN PO .PAIN 1-3 OR TEMP; Start 08/29/18 at 06:00 Magnesium Hydroxide (Milk Of Mag) 30 ml DAILY PRN PO .CONSTIPATION Last administered on 09/02/18at 05:16; Admin Dose 30 ML; Start 08/29/18 at 06:00 Escitalopram Oxalate (Lexapro) 20 mg DAILY PO Last administered on 09/18/18at 08:11; Admin Dose 20 MG; Start 08/30/18 at 09:00 Lorazepam (Ativan) 0.5 mg Q6H PRN PO ANXIETY; Start 09/02/18 at 13:00 Bisacodyl (Dulcolax Supp) 10 mg DAILY PRN [place] CONSTIPATION; Start 09/03/18 at 12:00 Heparin Sodium (Porcine) (Heparin (5000 Units/1ml)) 5,000 unit BID SC Last administered on 09/18/18 08:13; Admin Dose 5,000 UNIT; Start 09/03/18 at 14:00 Hydralazine HCl (Apresoline) 10 mg Q3 PRN IV ELEVATED SYSTOLIC BP Last administered on 09/05/18 19:48; Admin Dose 10 MG; Start 09/03/18 at 18:00 Albuterol/ Ipratropium (Duoneb) 3 ml Q2H RESP THERAPY PRN HHN SHORTNESS OF BREATH Last administered on 09/17/18 21:57; Admin Dose 3 ML; Start 09/03/18 at 20:00 Lorazepam (Ativan) 1 mg Q6H PRN IV anxiety Last administered on 09/06/18 00:00; Admin Dose 1 MG; Start 09/05/18 at 09:00 Propofol 100 ml @ 2.509 mls/ hr Q12H IV Last administered on 09/18/18 07:46; Admin Dose 12.546 MLS/HR; Start 09/06/18 at 09:30 Fentanyl 100 ml @ 2.5 mls/hr TITRATE IV Last administered on 09/17/18 11:11; Admin Dose 2.5 MLS/HR; Start 09/07/18 at 09:30 Multivitamins (Multivitamin) 30 ml DAILY NGT Last administered on 09/18/18 08:11; Admin Dose 30 ML; Start 09/07/18 at 14:30 Zinc Sulfate (Zinc Sulfate) 220 mg DAILY PO Last administered on 09/18/18 08:11; Admin Dose 220 MG; Start 09/07/18 at 14:30 Ascorbic Acid (Vitamin C) 500 mg DAILY NGT Last administered on 09/18/18 08:11; Admin Dose 500 MG; Start 09/07/18 at 14:30 Folic Acid (Folic Acid) 1 mg DAILY NGT Last administered on 09/18/18 08:11; Admin Dose 1 MG; Start 09/07/18 at 14:30 Petrolatum (Vaseline) APPLY TO MULTIPLE SC... BID TOP Last administered on 09/18/18 08:11; Admin Dose 1 EA; Start 09/08/18 at 09:00 IV Flush (NS 10 ml) 10 ml PRN PRN IV FLUSH LINE; Start 09/09/18 at 11:30 Vancomycin HCl (Vancomycin Oral Syringe) 250 mg Q6 PO Last administered on 09/18/18 05:26; Admin Dose 250 MG; Start 09/10/18 at 12:00 Valacyclovir HCl (Valtrex) 500 mg BID PO Last administered on 09/18/18 08:11; Admin Dose 500 MG; Start 09/12/18 at 14:00 Triamcinolone Acetonide (Kenalog 0.1% Cr) 1 applic BID TOP Last administered on 09/18/18 08:09; Admin Dose 1 APPLIC; Start 09/12/18 at 14:00 Lactobacillus Acidophilus/ Rhamnosus (Culturelle) 1 cap BID PO Last administered on 09/18/18 08:11; Admin Dose 1 CAP; Start 09/12/18 at 14:30 Sevelamer Carbonate (Renvela) 0.8 gm Q8H NGT Last administered on 09/18/18 03:27; Admin Dose 0.8 GM; Start 09/13/18 at 12:30 Lansoprazole (Prevacid) 30 mg BID@0600,1800 NGT Last administered on 09/18/18 05:26; Admin Dose 30 MG; Start 09/15/18 at 18:00 Docusate Sodium (Colace Liquid Cup) 100 mg BID PO Last administered on 09/18/18 08:11; Admin Dose 100 MG; Start 09/16/18 at 11:00 Docusate Sodium (Colace Liquid Cup) 100 mg Q12H PRN PO .CONSTIPATION; Start 09/16/18 at 11:00 JUDE GODINEZ Sep 18, 2018 08:45
--- NOTE | 2018-09-18 10:25 | PREAC ---
Date/Time of Note Date/Time of Note DATE: 09/18/18 TIME: 10:23 Anesthesia Eval and Record Evaluation Time Pre-Procedure Interview DATE: 09/18/18 TIME: 10:23 Age 87 Sex male NPO: 8 hrs Preoperative diagnosis gi bleed, anemia Planned procedure egd Past Medical History Past Medical History: Includes Cardio: HTN, Arrythmia Pulm: COPD Renal: RICHARD Heme: Anemia Surgery & Anesthesia Issues No known issue Meds Anticoagulation: No Beta Heriberto within 24 hr: No Reason Beta Heriberto not given: Pt. not on B-Heriberto Reported Medications Losartan Potassium* (Losartan Potassium*) 50 Mg Tablet, 50 MG PO DAILY, TAB 08/29/18 Simvastatin (Simvastatin) 20 Mg Tablet, 20 MG PO QHS for 90 Days, #90 08/29/18 Furosemide* (Furosemide*) 40 Mg Tablet, 40 MG PO DAILY for 90 Days, #90 08/29/18 Potassium Chloride (K-Tab ER) 8 Meq Tablet.er, 8 MEQ PO BID for 90 Days, #180 08/29/18 Escitalopram Oxalate* (Escitalopram Oxalate*) 10 Mg Tablet, 20 MG PO DAILY for 90 Days, #90 08/29/18 Hydrocodone Bit-Acetaminophen (Hydrocodone Bit-APAP) 5-325MG Tablet, 1 TAB PO DAILY 08/29/18 Dexlansoprazole (Dexilant) 60 Mg Tree., 60 MG PO DAILY for 90 Days, #90 08/29/18 Amiodarone Hcl* (Amiodarone Hcl*) 200 Mg Tablet, 200 MG PO DAILY for 90 Days, #90 08/29/18 Alprazolam* (Alprazolam*) 0.5 Mg Tablet, 0.5 MG PO QHS for 30 Days, #30 08/29/18 Current Medications IV Flush (NS 3 ml) 3 ml PER PROTOCOL IV ; Start 08/29/18 at 06:00 Ondansetron HCl (Zofran Inj) 4 mg Q6H PRN IV NAUSEA/VOMITING Last administered on 08/31/18at 05:02; Admin Dose 4 MG; Start 08/29/18 at 06:00 Acetaminophen (Tylenol Tab) 650 mg Q6H PRN PO .PAIN 1-3 OR TEMP; Start 08/29/18 at 06:00 Magnesium Hydroxide (Milk Of Mag) 30 ml DAILY PRN PO .CONSTIPATION Last administered on 09/02/18 05:16; Admin Dose 30 ML; Start 08/29/18 at 06:00 Escitalopram Oxalate (Lexapro) 20 mg DAILY PO Last administered on 09/18/18 08:11; Admin Dose 20 MG; Start 08/30/18 at 09:00 Lorazepam (Ativan) 0.5 mg Q6H PRN PO ANXIETY; Start 09/02/18 at 13:00 Bisacodyl (Dulcolax Supp) 10 mg DAILY PRN [place] CONSTIPATION; Start 09/03/18 at 12:00 Heparin Sodium (Porcine) (Heparin (5000 Units/1ml)) 5,000 unit BID SC Last administered on 09/18/18 08:13; Admin Dose 5,000 UNIT; Start 09/03/18 at 14:00 Hydralazine HCl (Apresoline) 10 mg Q3 PRN IV ELEVATED SYSTOLIC BP Last administ ered on 09/05/18 19:48; Admin Dose 10 MG; Start 09/03/18 at 18:00 Albuterol/ Ipratropium (Duoneb) 3 ml Q2H RESP THERAPY PRN HHN SHORTNESS OF BREATH Last administered on 09/17/18 21:57; Admin Dose 3 ML; Start 09/03/18 at 20:00 Lorazepam (Ativan) 1 mg Q6H PRN IV anxiety Last administered on 09/06/18 00:00; Admin Dose 1 MG; Start 09/05/18 at 09:00 Propofol 100 ml @ 2.509 mls/ hr Q12H IV Last administered on 09/18/18 07:46; Admin Dose 12.546 MLS/HR; Start 09/06/18 at 09:30 Fentanyl 100 ml @ 2.5 mls/hr TITRATE IV Last administered on 09/17/18 11:11; Admin Dose 2.5 MLS/HR; Start 09/07/18 at 09:30 Multivitamins (Multivitamin) 30 ml DAILY NGT Last administered on 09/18/18 08:11; Admin Dose 30 ML; Start 09/07/18 at 14:30 Zinc Sulfate (Zinc Sulfate) 220 mg DAILY PO Last administered on 09/18/18 08:11; Admin Dose 220 MG; Start 09/07/18 at 14:30 Ascorbic Acid (Vitamin C) 500 mg DAILY NGT Last administered on 09/18/18 08:11; Admin Dose 500 MG; Start 09/07/18 at 14:30 Folic Acid (Folic Acid) 1 mg DAILY NGT Last administered on 09/18/18 08:11; Admin Dose 1 MG; Start 09/07/18 at 14:30 Petrolatum (Vaseline) APPLY TO MULTIPLE SC... BID TOP Last administered on 09/18/18 08:11; Admin Dose 1 EA; Start 09/08/18 at 09:00 IV Flush (NS 10 ml) 10 ml PRN PRN IV FLUSH LINE; Start 09/09/18 at 11:30 Vancomycin HCl (Vancomycin Oral Syringe) 250 mg Q6 PO Last administered on 09/18/18 05:26; Admin Dose 250 MG; Start 09/10/18 at 12:00 Valacyclovir HCl (Valtrex) 500 mg BID PO Last administered on 09/18/18 08:11; Admin Dose 500 MG; Start 09/12/18 at 14:00 Triamcinolone Acetonide (Kenalog 0.1% Cr) 1 applic BID TOP Last administered on 09/18/18 08:09; Admin Dose 1 APPLIC; Start 09/12/18 at 14:00 Lactobacillus Acidophilus/ Rhamnosus (Culturelle) 1 cap BID PO Last administered on 09/18/18 08:11; Admin Dose 1 CAP; Start 09/12/18 at 14:30 Sevelamer Carbonate (Renvela) 0.8 gm Q8H NGT Last administered on 09/18/18 03:27; Admin Dose 0.8 GM; Start 09/13/18 at 12:30 Lansoprazole (Prevacid) 30 mg BID@0600,1800 NGT Last administered on 09/18/18 05:26; Admin Dose 30 MG; Start 09/15/18 at 18:00 Docusate Sodium (Colace Liquid Cup) 100 mg BID PO Last administered on 09/18/18 08:11; Admin Dose 100 MG; Start 09/16/18 at 11:00 Docusate Sodium (Colace Liquid Cup) 100 mg Q12H PRN PO .CONSTIPATION; Start 09/16/18 at 11:00 Meds reviewed: Yes Allergies Coded Allergies: No Known Allergy (Unverified , 09/14/18) Allergies Reviewed: Yes Labs/Studies Labs Reviewed: Reviewed by anesthesiologist Result Diagram: 09/18/18 0730 09/18/18 0730 Laboratory Tests 09/18/18 07:30 test: N/A Studies: ECG, CXR Pre-procedure Exam Last vitals Vital Signs Date Temp Pulse Resp B/P (MAP) Pulse Ox O2 O2 Flow FiO2 Time Delivery Rate 09/18/18 53 20 110/48 100 Mechanical 09:00 (68) Ventilator 09/18/18 30 08:00 09/18/18 97.7 08:00 Airway: Adequate mouth opening, Adequate thyromental dist Mallampati: Mallampati III Teeth: Normal Lung: Normal Heart: Normal ASA Physical Status ASA physical status: 4 Emergency: None Planned Anesthetic General/MAC: ETT Planned Pain Management Parenteral pain med Pre-operative Attestations Prior to commencing anesthesia and surgery, the patient was re-evaluated, there was verification of: *The patient's identity *The results of appropriate recent lab work and preoperative vital signs *The above evaluation not changing prior to induction *Anesthetic plan, risk benefits, alternative and complications discussed with patient/family; questions answered; patient/family understands, accepts and wishes to proceed. NENA ADAM Sep 18, 2018 10:25
--- NOTE | 2018-09-18 11:26 | HPN ---
Date/Time of Note Date/Time of Note DATE: 09/18/18 TIME: 11:26 Interval H&P Admission Note Pt. seen H&P reviewed: No system changes TOOTIE HERNANDEZ MD Sep 18, 2018 11:26
[2018-09-18] MEDS ORDERED: LABETALOL HCL 20MG INJ IV PRN (11:30)
[2018-09-18] MEDS ORDERED: EPHEDrine 25 MG/5 ML SYG IV PRN (11:30)
[2018-09-18] MEDS ORDERED: hydrALAzine 20 MG INJ IV PRN (11:30)
[2018-09-18] MEDS ORDERED: MIDAZOLAM 1 MG/ML 2 ML INJ IV PRN (11:30)
[2018-09-18] MEDS ORDERED: morphine 2 MG INJ IV PRN (11:30)
[2018-09-18] MEDS ORDERED: FUROSEMIDE 20 MG INJ IV ONE (13:30)
--- NOTE | 2018-09-18 14:01 | CONS ---
Assessment/Plan Assessment/Plan Hospital Course (Demo Recall) Patient is status post EGD this morning he is lethargic looks comfortable son at bedside no fevers overnight he remains bradycardic WBC today 5.3 BUN 65 creatinine 1.98 Antimicrobials: oral vancomycin, Valtrex Indwelling's: Endotracheal tube NG tube Mcgowan catheter Physical examination: Well-developed well-nourished elderly man who is awake in no distress. Head atraumatic normocephalic sclera nonicteric vehicle mucosa dry neck is supple chest rise symmetrical breath sounds with bilateral rhonchi. Heart: S1-S2. Abdomen soft bowel sounds present. Assessment: 1. Acute hypoxemic respiratory failure 2. Resolved pneumonia 3. CHF 4. Bradycardia 5. Acute kidney injury 6. Diarrhea 7. S/p leukocytosis 8. Mouth lesions, on empiric Valtrex 9. Staph bacteremia cw contaminant Plan: Patient remains stable, continue present care, weaning trials per pulmonary, son does not want tracheostomy Consultation Date/Type/Reason Admit Date/Time Aug 29, 2018 at 05:45 Initial Consult Date 08/30/18 Type of Consult id Requesting Provider: SERGIO TREVINO MD Date/Time of Note DATE: 09/18/18 TIME: 14:00 Exam/Review of Systems Exam Vitals Vital Signs Date Temp Pulse Resp B/P (MAP) Pulse Ox O2 O2 Flow FiO2 Time Delivery Rate 09/18/18 49 19 141/49 13:30 (79) 09/18/18 100 13:15 09/18/18 Mechanical 13:00 Ventilator 09/18/18 97.8 12:00 09/18/18 30 11:00 Intake and Output 09/17/18 09/17/18 09/18/18 1515:00 23:00 07:00 IntakeIntake Total 16.7 ml 3185.101 ml 1870.440 ml OutputOutput Total 1300 ml 1875 ml 1375 ml BalanceBalance -1283.3 ml 1310.101 ml 495.440 ml Results Result Diagram: 09/18/18 0730 09/18/18 0730 Results 24hrs Laboratory Tests Test 09/18/18 07:30 White Blood Count 5.3 # Red Blood Count 2.98 L Hemoglobin 9.7 L Hematocrit 28.1 L Mean Corpuscular Volume 94.3 Mean Corpuscular Hemoglobin 32.6 Mean Corpuscular Hemoglobin Concent 34.5 Red Cell Distribution Width 14.6 H Platelet Count 128 L Mean Platelet Volume 12.0 H Immature Granulocytes % 0.600 H Neutrophils % Segmented Neutrophils % (Manual) 76 Lymphocytes % Lymphocytes % (Manual) 18 Monocytes % Eosinophils % Eosinophils % (Manual) 6 Basophils % Nucleated Red Blood Cells % 0.0 Immature Granulocytes # 0.030 Neutrophils # Lymphocytes (Manual) 0.9 Lymphocytes # Monocytes # Eosinophils # Basophils # Nucleated Red Blood Cells # Platelet Estimate DECREASED Giant Platelets 8 H Anisocytosis 2+ Macrocytosis 2+ Spherocytes 1+ Sodium Level 146 H Potassium Level 4.2 Chloride Level 116 H Carbon Dioxide Level 23 Anion Gap 7 Blood Urea Nitrogen 65 H Creatinine 1.98 H Est Glomerular Filtrat Rate mL/min Glucose Level 88 Calcium Level 7.2 L Phosphorus Level 4.6 Magnesium Level 2.1 Medications Medication Current Medications IV Flush (NS 3 ml) 3 ml PER PROTOCOL IV ; Start 08/29/18 at 06:00 Ondansetron HCl (Zofran Inj) 4 mg Q6H PRN IV NAUSEA/VOMITING Last administered on 08/31/18at 05:02; Admin Dose 4 MG; Start 08/29/18 at 06:00 Acetaminophen (Tylenol Tab) 650 mg Q6H PRN PO .PAIN 1-3 OR TEMP; Start 08/29/18 at 06:00 Magnesium Hydroxide (Milk Of Mag) 30 ml DAILY PRN PO .CONSTIPATION Last administered on 09/02/18at 05:16; Admin Dose 30 ML; Start 08/29/18 at 06:00 Escitalopram Oxalate (Lexapro) 20 mg DAILY PO Last administered on 09/18/18at 08:11; Admin Dose 20 MG; Start 08/30/18 at 09:00 Lorazepam (Ativan) 0.5 mg Q6H PRN PO ANXIETY; Start 09/02/18 at 13:00 Bisacodyl (Dulcolax Supp) 10 mg DAILY PRN [place] CONSTIPATION; Start 09/03/18 at 12:00 Heparin Sodium (Porcine) (Heparin (5000 Units/1ml)) 5,000 unit BID SC Last administered on 09/18/18at 08:13; Admin Dose 5,000 UNIT; Start 09/03/18 at 14:00 Hydralazine HCl (Apresoline) 10 mg Q3 PRN IV ELEVATED SYSTOLIC BP Last administered on 09/05/18 19:48; Admin Dose 10 MG; Start 09/03/18 at 18:00 Albuterol/ Ipratropium (Duoneb) 3 ml Q2H RESP THERAPY PRN HHN SHORTNESS OF BREATH Last administered on 09/17/18 21:57; Admin Dose 3 ML; Start 09/03/18 at 20:00 Lorazepam (Ativan) 1 mg Q6H PRN IV anxiety Last administered on 09/06/18 00:00; Admin Dose 1 MG; Start 09/05/18 at 09:00 Propofol 100 ml @ 2.509 mls/ hr Q12H IV Last administered on 09/18/18 07:46; Admin Dose 12.546 MLS/HR; Start 09/06/18 at 09:30 Fentanyl 100 ml @ 2.5 mls/hr TITRATE IV Last administered on 09/17/18 11:11; Admin Dose 2.5 MLS/HR; Start 09/07/18 at 09:30 Multivitamins (Multivitamin) 30 ml DAILY NGT Last administered on 09/18/18 08:11; Admin Dose 30 ML; Start 09/07/18 at 14:30 Zinc Sulfate (Zinc Sulfate) 220 mg DAILY PO Last administered on 09/18/18 08:11; Admin Dose 220 MG; Start 09/07/18 at 14:30 Ascorbic Acid (Vitamin C) 500 mg DAILY NGT Last administered on 09/18/18 08:11; Admin Dose 500 MG; Start 09/07/18 at 14:30 Folic Acid (Folic Acid) 1 mg DAILY NGT Last administered on 09/18/18 08:11; Admin Dose 1 MG; Start 09/07/18 at 14:30 Petrolatum (Vaseline) APPLY TO MULTIPLE SC... BID TOP Last administered on 09/18/18 08:11; Admin Dose 1 EA; Start 09/08/18 at 09:00 IV Flush (NS 10 ml) 10 ml PRN PRN IV FLUSH LINE; Start 09/09/18 at 11:30 Vancomycin HCl (Vancomycin Oral Syringe) 250 mg Q6 PO Last administered on 09/18/18 13:19; Admin Dose 250 MG; Start 09/10/18 at 12:00 Valacyclovir HCl (Valtrex) 500 mg BID PO Last administered on 09/18/18 08:11; Admin Dose 500 MG; Start 09/12/18 at 14:00 Triamcinolone Acetonide (Kenalog 0.1% Cr) 1 applic BID TOP Last administered on 09/18/18at 08:09; Admin Dose 1 APPLIC; Start 09/12/18 at 14:00 Lactobacillus Acidophilus/ Rhamnosus (Culturelle) 1 cap BID PO Last administered on 09/18/18 08:11; Admin Dose 1 CAP; Start 09/12/18 at 14:30 Sevelamer Carbonate (Renvela) 0.8 gm Q8H NGT Last administered on 09/18/18 13:19; Admin Dose 0.8 GM; Start 09/13/18 at 12:30 Lansoprazole (Prevacid) 30 mg BID@0600,1800 NGT Last administered on 09/18/18 05:26; Admin Dose 30 MG; Start 09/15/18 at 18:00 Docusate Sodium (Colace Liquid Cup) 100 mg BID PO Last administered on 09/18/18at 08:11; Admin Dose 100 MG; Start 09/16/18 at 11:00 Docusate Sodium (Colace Liquid Cup) 100 mg Q12H PRN PO .CONSTIPATION; Start 09/16/18 at 11:00 Morphine Sulfate (morphine) 2 mg ICU RECOVERY PRN IV .MILD PAIN LEVEL 1-3; Start 09/18/18 at 11:30; Stop 09/18/18 at 16:00 Labetalol HCl (Labetalol) 5 mg ICU RECOVERY PRN IV HIGH BLOOD PRESSURE; Start 09/18/18 at 11:30; Stop 09/18/18 at 16:00 Hydralazine HCl (Apresoline) 5 mg ICU RECOVERY PRN IV HIGH BLOOD PRESSURE; Start 09/18/18 at 11:30; Stop 09/18/18 at 16:00 Ephedrine Sulfate 5 mg PACU ORDER PRN IV BLOOD PRESSURRE SUPPORT; Start 09/18/18 at 11:30; Stop 09/18/18 at 16:00 Midazolam HCl (Versed) 0.5 mg ICU RECOVERY PRN IV .ANXIETY; Start 09/18/18 at 11:30; Stop 09/18/18 at 16:00 TAYLOR RIZZO NP Sep 18, 2018 14:00
--- NOTE | 2018-09-18 15:18 | PAC ---
Date/Time of Note Date/Time of Note DATE: 09/18/18 TIME: 15:18 Post-Anesthesia Notes Post-Anesthesia Note Last documented vital signs Vital Signs Date Temp Pulse Resp B/P (MAP) Pulse Ox O2 O2 Flow FiO2 Time Delivery Rate 09/18/18 98 55 15 159/46 100 14:45 (83) 09/18/18 Mechanical 14:00 Ventilator 09/18/18 97.8 12:00 09/18/18 30 11:00 Activity: WNL Respiratory function: WNL Cardiovascular function: WNL Mental status: Baseline Pain reasonably controlled: Yes Hydration appropriate: Yes Nausea/Vomiting absent: Yes NENA ADAM Sep 18, 2018 15:18
--- NOTE | 2018-09-18 17:35 | PN ---
DATE: 09/18/2018 SUBJECTIVE: The patient is status post another unit of PRBC. Hemoglobin did not correct appropriate ly from 9.2 to 9.7. The patient today had a colonoscopy which did not show any evidence of bleeding. We will follow with pathology report. Case was discussed with nephew at bedside. The patient is c urrently sedated, remains on AC mode via full ventilatory support. PHYSICAL EXAMINATION: VITAL SIGNS: Temperature is 97.7, the patient is afebrile, pulse 49, respirations 20, blood pressure 152/97, saturation 100% on 30% FiO2. GENERAL: In no acute distress. HEENT: Pale. CARDIOVASCULAR: S1 and S2. LUNGS: Clear. ABDOMEN: Soft, nontender. EXTREMITIES: Positive edema of the hands and pedal edema; otherwise, no significant edema. RECTAL: Rectal tube was removed. LABORATORY DATA: White count is normal at 5.3, hemoglobin 9.7, hematocrit 28, platelet count is 128, neutrophils 76%, lymphocytes 18%. Chemistry: Sodium 146, potassium 4.2, chloride 116, bicarbonate 23, BUN is 65, creatinine 1.98 and glucose of 88. ABG: None today. MEDICATIONS: 1. Morphine p.r.n. 2. Labetalol p.r.n. 3. Hydralazine p.r.n. 4. Colace 100 b.i.d. 5. Prevacid 30 mg twice a day. 6. Renvela 0.8 q.8. 7. Culturelle 1 cap b.i.d. 8. Valtrex 500 mg b.i.d. 9. Kenalog b.i.d. 10. Vancomycin 250 q.6 hours. 11. Vaseline b.i.d. 12. Multivitamin 30 mL daily. 13. Zinc sulfate 220 daily. 14. Vitamin C 500 mg daily. 15. Folic acid 1 mg daily. 16. Ativan p.r.n. 17. DuoNeb p.r.n. 18. Hydralazine p.r.n. 19. Heparin 5000 b.i.d. 20. Ativan p.r.n. 21. Lexapro 20 mg daily. 22. Zofran. 23. Tylenol. 24. Milk of Magnesia p.r.n. DIAGNOSTIC DATA: Chest x-ray did show mild increase in diffuse bilateral interstitial opacities repr esenting edema versus pneumonia. No significant changes. Small bilateral pleural effusion. Bibasil ar opacities. ASSESSMENT AND PLAN: This is an 87-year-old [place] male with history of atrial fibrillation, hyper tension, low back pain, who presented with shortness of breath, was found to have extensive pneumonia , intubated, now on the ventilator. 1. Respiratory: Noted above chest x-ray. We will give a dose of Lasix, status post transfusion. O ff antibiotics. Status post treatment for pneumonia. 2. Cardiovascular: Remains bradycardic. Cardiology is following. Continue heparin for deep venous thrombosis prophylaxis. 3. Anemia with possible gastrointestinal bleed with positive fecal occult blood, status post EGD, co lonoscopy. No evidence of active bleeding. Continue to transfuse p.r.n. Continue Prevacid b.i.d. d osing. 4. Multiple wounds. Wound care consult is following. Continue above treatment plan. 5. Neurologically sedated. 6. Acute renal failure due to diuretic therapy and possible gastrointestinal bleed, improved after t ransfusion. 7. Infectious disease: Further treatment per infectious disease team. 8. Dysphagia. Continue NG tube feeding. 9. Follow up with pulmonary recommendation regarding weaning. Definitely, we would recommend attemp t at extubation at least once due to patient's overall anxiety and quite a lot of suffering once we p ut the trach, but again, we will follow up recommendations by pulmonology. We will follow. Dictated By: SERGIO CERVANTES/NEHAL Conf#: [id number] DID#: [id number] CC: OLIVE ANDREWS MD;*EndCC*
[2018-09-18] MEDS: ALBUTEROL/IPRATROPIUM (NEB) 3 ML AMP HHN PRN ×2 (19:10→19:11)
[2018-09-19] VITALS (35 sets, daily range): BP systolic 115–180; BP diastolic 47–160; PULSE 65–84; RESP 20–32
[2018-09-19] MEDS: ALBUTEROL/IPRATROPIUM (NEB) 3 ML AMP HHN PRN (00:10)
[2018-09-19] MEDS: SEVELAMER CARBONATE 0.8 GM PKT NGT SCH ×3 (04:30→20:30)
[2018-09-19] MEDS: VANCOMYCIN HCL 250 MG/5ML POSYG PO SCH ×4 (05:41→23:22)
[2018-09-19] MEDS: LANSOPRAZOLE 30 MG CAP NGT SCH ×2 (05:41→16:45)
--- NOTE | 2018-09-19 07:41 | CONS ---
Consult Date/Type/Reason Admit Date/Time Aug 29, 2018 at 05:45 Initial Consult Date 09/07/18 Type of Consultation: neph Requesting Provider: SERGIO TREVINO MD Date/Time of Note DATE: 09/19/18 TIME: 07:32 Subjective 87-year-old Telugu male with history of atrial fibrillation, hypertension, low back pain, who presented with shortness of breath, was found to have extensive pneumonia, intubated, The patient is now extubated. had colonoscopy. somewhat confused. continues good uo. No other acute events noted. No hemoptysis, hematemesis or hematochezia. sp prbc poc reviewed with dr. javid freeman well overnight. was given metolazone and lasix yesterday. OBJECTIVE: HEENT: Head is normocephalic. NECK: Supple. HEART: Regular rate. LUNGS: Show diminished breath sounds at the base. ABDOMEN: Soft, nontender to palpation without rebound or guarding. EXTREMITIES: Negative for clubbing, cyanosis, no edema. DERMATOLOGIC: No rashes. MUSCULOSKELETAL: No joint effusion. NEUROLOGIC: No change in exam. Objective Vitals Vital Signs Date Temp Pulse Resp B/P (MAP) Pulse Ox O2 O2 Flow FiO2 Time Delivery Rate 09/19/18 65 32 145/70 100 Nasal 3.0 06:30 (95) Cannula Non Rebreather 09/19/18 30 04:34 09/19/18 98.9 04:00 Intake and Output 09/18/18 09/18/18 09/19/18 1515:00 23:00 07:00 IntakeIntake Total 100.097 ml 0 ml 0 ml OutputOutput Total 885 ml 1070 ml 615 ml BalanceBalance -784.903 ml -1070 ml -615 ml Results/Medications Result Diagram: 09/19/18 0457 09/19/18 0459 Results 24 hrs Laboratory Tests Test 09/18/18 16:06 09/19/18 04:57 09/19/18 04:59 09/19/18 05:05 Blood Gas Blood arterial Specimen Source Arterial Blood 09/18/2018 4:10: Date Drawn 59 PM Arterial Blood 7.405 pH (Temp corrected) Arterial Blood 34.6 L pCO2 (Temp correct) Arterial Blood 89.5 pO2 (Temp corrected) Arterial Blood 21.2 L HCO3 Arterial Blood -2.8 Base Excess Arterial Blood 95.9 Oxygen Saturatio n Domenico Test ACCEPTAB Arterial Blood Left Radial Gas Puncture Site Arterial 0.4 Blood Carboxyhem oglobin Arterial Blood 0.2 Methemoglobin Blood Gas A-a O2 83.7 H Differential Oxyhemoglobin 95.3 Percent Blood Gas 37.0 Temperature Blood Gas VENT - CPAP Modality FiO2 30.0 Blood Gas Tidal 450.0 Volume Blood Gas Low 5.0 PEEP Setting Blood Gas 15 Pressure Support Blood Gas Javid RIVERA RN Critical Value Read Back Blood Gas RDIX Notified Whom Blood Gas 09/18/2018 4:28: Notified Time 45 PM White Blood 5.6 Count Red Blood Count 3.47 L Hemoglobin 10.8 L Hematocrit 33.4 L Mean Corpuscular 96.3 Volume Mean Corpuscular 31.1 Hemoglobin Mean Corpuscular 32.3 Hemoglobin Irene nt Red Cell 15.2 H Distribution Width Platelet Count 161 # Mean Platelet 11.5 H Volume Immature 0.500 H Granulocytes % Neutrophils % Lymphocytes % Monocytes % Eosinophils % Basophils % Nucleated Red 0.0 Blood Cells % Immature 0.030 Granulocytes # Neutrophils # Lymphocytes # Monocytes # Eosinophils # Basophils # Nucleated Red Blood Cells # Sodium Level 148 H Potassium Level 4.5 Chloride Level 115 H Carbon Dioxide 23 Level Anion Gap 10 Blood Urea 60 H Nitrogen Creatinine 2.18 H Est Glomerular Filtrat Rate mL/min Glucose Level 87 Calcium Level 8.0 L Phosphorus Level 6.4 H Magnesium Level 2.1 Lab Scanned BLOOD TRANSFUSI Report ON Home Meds Reported Medications Losartan Potassium* (Losartan Potassium*) 50 Mg Tablet, 50 MG PO DAILY, TAB 08/29/18 Simvastatin (Simvastatin) 20 Mg Tablet, 20 MG PO QHS for 90 Days, #90 08/29/18 Furosemide* (Furosemide*) 40 Mg Tablet, 40 MG PO DAILY for 90 Days, #90 08/29/18 Potassium Chloride (K-Tab ER) 8 Meq Tablet.er, 8 MEQ PO BID for 90 Days, #180 08/29/18 Escitalopram Oxalate* (Escitalopram Oxalate*) 10 Mg Tablet, 20 MG PO DAILY for 90 Days, #90 08/29/18 Hydrocodone Bit-Acetaminophen (Hydrocodone Bit-APAP) 5-325MG Tablet, 1 TAB PO DAILY 08/29/18 Dexlansoprazole (Dexilant) 60 Mg , 60 MG PO DAILY for 90 Days, #90 08/29/18 Amiodarone Hcl* (Amiodarone Hcl*) 200 Mg Tablet, 200 MG PO DAILY for 90 Days, #90 08/29/18 Alprazolam* (Alprazolam*) 0.5 Mg Tablet, 0.5 MG PO QHS for 30 Days, #30 08/29/18 Medications Current Medications IV Flush (NS 3 ml) 3 ml PER PROTOCOL IV ; Start 08/29/18 at 06:00 Ondansetron HCl (Zofran Inj) 4 mg Q6H PRN IV NAUSEA/VOMITING Last administered on 08/31/18at 05:02; Admin Dose 4 MG; Start 08/29/18 at 06:00 Acetaminophen (Tylenol Tab) 650 mg Q6H PRN PO .PAIN 1-3 OR TEMP; Start 08/29/18 at 06:00 Magnesium Hydroxide (Milk Of Mag) 30 ml DAILY PRN PO .CONSTIPATION Last administered on 09/02/18at 05:16; Admin Dose 30 ML; Start 08/29/18 at 06:00 Escitalopram Oxalate (Lexapro) 20 mg DAILY PO Last administered on 09/18/18at 08:11; Admin Dose 20 MG; Start 08/30/18 at 09:00 Lorazepam (Ativan) 0.5 mg Q6H PRN PO ANXIETY; Start 09/02/18 at 13:00 Bisacodyl (Dulcolax Supp) 10 mg DAILY PRN [place] CONSTIPATION; Start 09/03/18 at 12:00 Heparin Sodium (Porcine) (Heparin (5000 Units/1ml)) 5,000 unit BID SC Last administered on 09/18/18at 22:00; Admin Dose 5,000 UNIT; Start 09/03/18 at 14:00 Hydralazine HCl (Apresoline) 10 mg Q3 PRN IV ELEVATED SYSTOLIC BP Last administered on 09/05/18at 19:48; Admin Dose 10 MG; Start 09/03/18 at 18:00 Albuterol/ Ipratropium (Duoneb) 3 ml Q2H RESP THERAPY PRN HHN SHORTNESS OF BREATH Last administered on 09/19/18at 00:10; Admin Dose 3 ML; Start 09/03/18 at 20:00 Lorazepam (Ativan) 1 mg Q6H PRN IV anxiety Last administered on 09/06/18 00:00; Admin Dose 1 MG; Start 09/05/18 at 09:00 Propofol 100 ml @ 2.509 mls/ hr Q12H IV Last administered on 09/18/18 07:46; Admin Dose 12.546 MLS/HR; Start 09/06/18 at 09:30 Fentanyl 100 ml @ 2.5 mls/hr TITRATE IV Last administered on 09/17/18 11:11; Admin Dose 2.5 MLS/HR; Start 09/07/18 at 09:30 Multivitamins (Multivitamin) 30 ml DAILY NGT Last administered on 09/18/18 08:11; Admin Dose 30 ML; Start 09/07/18 at 14:30 Zinc Sulfate (Zinc Sulfate) 220 mg DAILY PO Last administered on 09/18/18 08:11; Admin Dose 220 MG; Start 09/07/18 at 14:30 Ascorbic Acid (Vitamin C) 500 mg DAILY NGT Last administered on 09/18/18 08:11; Admin Dose 500 MG; Start 09/07/18 at 14:30 Folic Acid (Folic Acid) 1 mg DAILY NGT Last administered on 09/18/18 08:11; Admin Dose 1 MG; Start 09/07/18 at 14:30 Petrolatum (Vaseline) APPLY TO MULTIPLE SC... BID TOP Last administered on 09/18/18 21:53; Admin Dose 1 EA; Start 09/08/18 at 09:00 IV Flush (NS 10 ml) 10 ml PRN PRN IV FLUSH LINE; Start 09/09/18 at 11:30 Vancomycin HCl (Vancomycin Oral Syringe) 250 mg Q6 PO Last administered on 09/18/18 13:19; Admin Dose 250 MG; Start 09/10/18 at 12:00 Valacyclovir HCl (Valtrex) 500 mg BID PO Last administered on 09/18/18 08:11; Admin Dose 500 MG; Start 09/12/18 at 14:00 Triamcinolone Acetonide (Kenalog 0.1% Cr) 1 applic BID TOP Last administered on 09/18/18 21:53; Admin Dose 1 APPLIC; Start 09/12/18 at 14:00 Lactobacillus Acidophilus/ Rhamnosus (Culturelle) 1 cap BID PO Last administered on 09/18/18at 08:11; Admin Dose 1 CAP; Start 09/12/18 at 14:30 Sevelamer Carbonate (Renvela) 0.8 gm Q8H NGT Last administered on 09/18/18at 13:19; Admin Dose 0.8 GM; Start 09/13/18 at 12:30 Lansoprazole (Prevacid) 30 mg BID@0600,1800 NGT Last administered on 09/18/18at 05:26; Admin Dose 30 MG; Start 09/15/18 at 18:00 Docusate Sodium (Colace Liquid Cup) 100 mg BID PO Last administered on 09/18/18at 08:11; Admin Dose 100 MG; Start 09/16/18 at 11:00 Docusate Sodium (Colace Liquid Cup) 100 mg Q12H PRN PO .CONSTIPATION; Start 09/16/18 at 11:00 Assessment/Plan Hospital Course (Demo Recall) 1. Nonoliguric acute kidney injury with unknown baseline creatinine. Etiology of acute kidney injury is secondary to acute tubular necrosis and hemodynamics. Renal function has been fluctuating, but overall stable. Continue current treatment plans, supportive care, and renally dose all medications. may need to tolerate some azotemia to achieve euvolemia. 2. Volume overload. Etiology is multifactorial secondary to sepsis, heart failure, capillary leak. We will continue diuretic therapy, monitor I's and O's and electrolytes closely. diuresed well overnight. was given metolazone and lasix yesterday. 3. Hypernatremia. Continue free water flushes. 4. Anemia with evidence of gastrointestinal bleed. The patient is status post blood transfusion. Pending EGD, colonoscopy. Continue to monitor. Continue proton pump inhibitor. 5. Mineral bone disorder. Monitor calcium and phosphorus levels. 6. sp Ventilator-dependent respiratory failure. now extubated 7. Sepsis secondary to pneumonia. Continue current antibiotic regimen. 8. Acute encephalopathy, etiology is toxic metabolic. 9. History of benign prostatic hypertrophy. 10. History of diastolic heart failure. Continue medical management as stated above. NICHOLAS FIORE MD Sep 19, 2018 07:41
--- NOTE | 2018-09-19 08:00 | CONS ---
Assessment/Plan Assessment/Plan Assessment/Plan (Daily) Assessment and recommendations; 1. Patient admitted with severe bilateral pneumonia with marked interval radiological and clinical improvement. Status post extubation yesterday. 2. Chronic stable renal insufficiency. 3. History of cardiac arrhythmia, patient remains in sinus rhythm. 4. Mild anemia and thrombocytopenia. 5. Status post EGD and colonoscopy. 6. Some element of critical illness neuropathy/myopathy. 7. Patient is no wheezing likely from underlying COPD. Add Solu-Medrol 40 mg every 8 hours at least for 3 doses. Continue current bronchodilator regimen. Patient is off IV antibiotics and is maintained on enteral vancomycin. Chest x-ray is pending from today. Consultation Date/Type/Reason Admit Date/Time Aug 29, 2018 at 05:45 Initial Consult Date 08/30/18 Type of Consult Pulmonary Patient condition is tenuous. On BiPAP. Having significant chest congestion. Take slightly yellow-tinged secretions noted on suctioning. Patient requiring deep nasotracheal suctioning. General exam; elderly male, mildly lethargic. Requesting Provider: SERGIO TREVINO MD Date/Time of Note DATE: 09/19/18 TIME: 07:57 24 HR Interval Summary Free Text/Dictation Patient's condition is stable. Was successfully extubated yesterday evening. P atient has remained hemodynamically stable. Also exhibiting stable pulmonary status. Patient also underwent colonoscopy yesterday. General exam; elderly male, awake and alert, responsive appropriately. Currently in no distress. Exam/Review of Systems Exam Vitals Vital Signs Date Temp Pulse Resp B/P (MAP) Pulse Ox O2 O2 Flow FiO2 Time Delivery Rate 09/19/18 65 32 145/70 100 Nasal 3.0 06:30 (95) Cannula Non Rebreather 09/19/18 30 04:34 09/19/18 98.9 04:00 Intake and Output 09/18/18 09/18/18 09/19/18 1515:00 23:00 07:00 IntakeIntake Total 100.097 ml 0 ml 0 ml OutputOutput Total 885 ml 1070 ml 615 ml BalanceBalance -784.903 ml -1070 ml -615 ml Exam H ENT exam; supple neck, no JVD. No lymphadenopathy. Midline trachea. No thyromegaly. Patient has crusting of blood around nares. Upper jaw is edentulous. Pupils are small bilaterally. Chest exam; diminished but clear breath sounds. No added sounds. S1-S2 audible, no murmurs. Regular rhythm. Abdomen exam; soft, no organomegaly. Bowel sounds audible. Nontender. Extremity exam; no peripheral edema clubbing. 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 Patient though exhibiting generalized weakness. Results Result Diagram: 09/19/18 0457 09/19/18 0459 Results 24hrs Laboratory Tests Test 09/18/18 16:06 09/19/18 04:57 09/19/18 04:59 09/19/18 05:05 Blood Gas Blood arterial Specimen Source Arterial Blood 09/18/2018 4:10: Date Drawn 59 PM Arterial Blood 7.405 pH (Temp corrected) Arterial Blood 34.6 L pCO2 (Temp correct) Arterial Blood 89.5 pO2 (Temp corrected) Arterial Blood 21.2 L HCO3 Arterial Blood -2.8 Base Excess Arterial Blood 95.9 Oxygen Saturatio n Domenico Test ACCEPTAB Arterial Blood Left Radial Gas Puncture Site Arterial 0.4 Blood Carboxyhem oglobin Arterial Blood 0.2 Methemoglobin Blood Gas A-a O2 83.7 H Differential Oxyhemoglobin 95.3 Percent Blood Gas 37.0 Temperature Blood Gas VENT - CPAP Modality FiO2 30.0 Blood Gas Tidal 450.0 Volume Blood Gas Low 5.0 PEEP Setting Blood Gas 15 Pressure Support Blood Gas Tabitha RIVERA RN Critical Value Read Back Blood Gas RDIX Notified Whom Blood Gas 09/18/2018 4:28: Notified Time 45 PM White Blood 5.6 Count Red Blood Count 3.47 L Hemoglobin 10.8 L Hematocrit 33.4 L Mean Corpuscular 96.3 Volume Mean Corpuscular 31.1 Hemoglobin Mean Corpuscular 32.3 Hemoglobin Irene nt Red Cell 15.2 H Distribution Width Platelet Count 161 # Mean Platelet 11.5 H Volume Immature 0.500 H Granulocytes % Neutrophils % Lymphocytes % Monocytes % Eosinophils % Basophils % Nucleated Red 0.0 Blood Cells % Immature 0.030 Granulocytes # Neutrophils # Lymphocytes # Monocytes # Eosinophils # Basophils # Nucleated Red Blood Cells # Sodium Level 148 H Potassium Level 4.5 Chloride Level 115 H Carbon Dioxide 23 Level Anion Gap 10 Blood Urea 60 H Nitrogen Creatinine 2.18 H Est Glomerular Filtrat Rate mL/min Glucose Level 87 Calcium Level 8.0 L Phosphorus Level 6.4 H Magnesium Level 2.1 Lab Scanned BLOOD TRANSFUSI Report ON Medications Medication Current Medications IV Flush (NS 3 ml) 3 ml PER PROTOCOL IV ; Start 08/29/18 at 06:00 Ondansetron HCl (Zofran Inj) 4 mg Q6H PRN IV NAUSEA/VOMITING Last administered on 08/31/18 05:02; Admin Dose 4 MG; Start 08/29/18 at 06:00 Acetaminophen (Tylenol Tab) 650 mg Q6H PRN PO .PAIN 1-3 OR TEMP; Start 08/29/18 at 06:00 Magnesium Hydroxide (Milk Of Mag) 30 ml DAILY PRN PO .CONSTIPATION Last adminis tered on 09/02/18at 05:16; Admin Dose 30 ML; Start 08/29/18 at 06:00 Escitalopram Oxalate (Lexapro) 20 mg DAILY PO Last administered on 09/18/18at 08:11; Admin Dose 20 MG; Start 08/30/18 at 09:00 Lorazepam (Ativan) 0.5 mg Q6H PRN PO ANXIETY; Start 09/02/18 at 13:00 Bisacodyl (Dulcolax Supp) 10 mg DAILY PRN [place] CONSTIPATION; Start 09/03/18 at 12:00 Heparin Sodium (Porcine) (Heparin (5000 Units/1ml)) 5,000 unit BID SC Last administered on 09/18/18at 22:00; Admin Dose 5,000 UNIT; Start 09/03/18 at 14:00 Hydralazine HCl (Apresoline) 10 mg Q3 PRN IV ELEVATED SYSTOLIC BP Last administered on 09/05/18at 19:48; Admin Dose 10 MG; Start 09/03/18 at 18:00 Albuterol/ Ipratropium (Duoneb) 3 ml Q2H RESP THERAPY PRN HHN SHORTNESS OF BREATH Last administered on 09/19/18at 00:10; Admin Dose 3 ML; Start 09/03/18 at 20:00 Lorazepam (Ativan) 1 mg Q6H PRN IV anxiety Last administered on 09/06/18at 00:00; Admin Dose 1 MG; Start 09/05/18 at 09:00 Propofol 100 ml @ 2.509 mls/ hr Q12H IV Last administered on 09/18/18at 07:46; Admin Dose 12.546 MLS/HR; Start 09/06/18 at 09:30 Fentanyl 100 ml @ 2.5 mls/hr TITRATE IV Last administered on 09/17/18 11:11; Admin Dose 2.5 MLS/HR; Start 09/07/18 at 09:30 Multivitamins (Multivitamin) 30 ml DAILY NGT Last administered on 09/18/18 08:11; Admin Dose 30 ML; Start 09/07/18 at 14:30 Zinc Sulfate (Zinc Sulfate) 220 mg DAILY PO Last administered on 09/18/18 08:11; Admin Dose 220 MG; Start 09/07/18 at 14:30 Ascorbic Acid (Vitamin C) 500 mg DAILY NGT Last administered on 09/18/18 08:11; Admin Dose 500 MG; Start 09/07/18 at 14:30 Folic Acid (Folic Acid) 1 mg DAILY NGT Last administered on 09/18/18 08:11; Admin Dose 1 MG; Start 09/07/18 at 14:30 Petrolatum (Vaseline) APPLY TO MULTIPLE SC... BID TOP Last administered on 09/18/18 21:53; Admin Dose 1 EA; Start 09/08/18 at 09:00 IV Flush (NS 10 ml) 10 ml PRN PRN IV FLUSH LINE; Start 09/09/18 at 11:30 Vancomycin HCl (Vancomycin Oral Syringe) 250 mg Q6 PO Last administered on 09/18/18 13:19; Admin Dose 250 MG; Start 09/10/18 at 12:00 Valacyclovir HCl (Valtrex) 500 mg BID PO Last administered on 09/18/18 08:11; Admin Dose 500 MG; Start 09/12/18 at 14:00 Triamcinolone Acetonide (Kenalog 0.1% Cr) 1 applic BID TOP Last administered on 09/18/18 21:53; Admin Dose 1 APPLIC; Start 09/12/18 at 14:00 Lactobacillus Acidophilus/ Rhamnosus (Culturelle) 1 cap BID PO Last administered on 09/18/18 08:11; Admin Dose 1 CAP; Start 09/12/18 at 14:30 Sevelamer Carbonate (Renvela) 0.8 gm Q8H NGT Last administered on 09/18/18 13:19; Admin Dose 0.8 GM; Start 09/13/18 at 12:30 Lansoprazole (Prevacid) 30 mg BID@0600,1800 NGT Last administered on 09/18/18at 05:26; Admin Dose 30 MG; Start 09/15/18 at 18:00 Docusate Sodium (Colace Liquid Cup) 100 mg BID PO Last administered on 09/18/18at 08:11; Admin Dose 100 MG; Start 09/16/18 at 11:00 Docusate Sodium (Colace Liquid Cup) 100 mg Q12H PRN PO .CONSTIPATION; Start 09/16/18 at 11:00 JUDE GODINEZ Sep 19, 2018 08:00
[2018-09-19] MEDS: ALBUTEROL/IPRATROPIUM (NEB) 3 ML AMP HHN SCH ×3 (08:38→20:09)
[2018-09-19] MEDS: BALSAM PERU/CASTOR OIL 60 GM TUBE TOP SCH ×2 (08:51→20:41)
[2018-09-19] MEDS: PETROLATUM 5 GM OINT TOP SCH ×2 (08:51→20:42)
[2018-09-19] MEDS: METHYLPREDNISOLONE 40 MG INJ IV SCH ×3 (08:51→20:55)
[2018-09-19] MEDS: TRIAMCINOLONE ACET 0.1% 15 GM CR TOP SCH ×2 (08:51→20:41)
[2018-09-19] MEDS: FOLIC ACID 1 MG TAB NGT SCH (09:00)
[2018-09-19] MEDS: ASCORBIC ACID 500 MG TAB NGT SCH (09:00)
[2018-09-19] MEDS: HEPARIN 5,000 UNIT/1 ML VIAL SC SCH ×2 (09:00→21:04)
[2018-09-19] MEDS: ESCITALOPRAM 10 MG TAB PO SCH (09:00)
[2018-09-19] MEDS: MULTIVITAMINS 30 ML CUP NGT SCH (09:00)
[2018-09-19] MEDS: LACTOBACILLUS RHAMNOSUS CAP PO SCH ×2 (09:00→20:41)
[2018-09-19] MEDS: valACYclovir 500 MG TAB PO SCH ×2 (09:00→20:41)
[2018-09-19] MEDS: ZINC SULFATE 220 MG CAP PO SCH (09:00)
[2018-09-19] MEDS: DOCUSATE SODIUM 10 MG/ML (10ML CUP) PO SCH ×2 (09:00→20:41)
[2018-09-19] MEDS: PROPOFOL 100 ML IV SCH ×2 (09:08→20:42)
--- NOTE | 2018-09-19 10:57 | CONS ---
Assessment/Plan Assessment/Plan Hospital Course (Demo Recall) ID NOTE CURRENT ABX: DAY # =>Vanco PO + Valacyclovir S/P Vanco IV + Merrem s/p Cefepime s/p Azith #8 09/19/18 0457 09/19/18 0459 24H INTERVAL SUMMARY * s/p Extubation and also s/p Colonoscopy/EGD, VSS, no fevers, WBC stable * Patient requiring deep nasotracheal suctioning remains mildly lethargic. MICRO/OTHER * 08/29/18 (-) BCx * 08/29/18 Urine Cx (-) * 08/29 & 08/31/18 (-)MRSA * 08/30/18 (-)INFLUENZA A/B * 09/12/18 BCX (+) 1/ BOTTLES: CoNS * 09/14/18 (-) Urine * 09/14/18 ETT Aspirate: (+)C. Albicans * 09/17/18 LIP CX (+) WOUND CULTURE Preliminary Organism 1 STAPHYLOCOCCUS SPECIES QUANTITY 1+ IMAGING * )09/18/18 CXR: Mild increase in diffuse bilateral interstitial opacities, representing edema versus pneumonia. No significant change in small bilateral pleural effusions and bibasilar opacities. Support lines and tubes as described. * 09/05/18 CXR: IMPRESSION: Diffuse bilateral heterogeneous infiltrates. PHYSICAL EXAMINATION: GENERAL: VSS, NAD, Awake, Alert, anxious ?confused? HEENT: AT, NC == full face mask BIPAP NECK: Trach midline CHEST: Equal chest rise bilaterally == acute resp failure on BIPAP ABD: Soft, NT EXTREMITIES: Warm, dry SKIN: No rash, no diaphoresis ID ASSESSMENT 87 yo M admit with: 1. Sepsis due to acute Pneumonia/ARDS == RESOLVING * Afebrile today * Leukocytosis RESOLVED * (-)Strep PNA bacterial AB; (-)Mycoplasma (atypical PNA) 2. Acute hypoxemic respiratory failure 3. 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 Mild CHF-> Hx of diastolic dysfunction 5. Essential HTN 6. Afib-> Rate controlled 7. BPH w/urinary retention 8. Urinary tract infection as per urinalysis 9. Acute kidney injury * 08/29/18 Renal US: kidneys are not visualized due to overlying bowel gas. 10. 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 Staph Bacteremia = contaminated sample ABX ALLERGIES: KNDA INVASIVES: PICC, ETT, NGT, FC CURRENT ABX: DAY # =>Vanco PO + Valacyclovir + Doxycycline S/P Vanco IV + Merrem s/p Cefepime s/p Azith #8 ID RECOMMENDATIONS/PLAN: 1. Continue to monitor for recurrent pulmonary sepsis due to retained secretions and chest congestion 2. Pulmonary toilet 3. Add Doxycycline for (+)Staph lip wound . Consultation Date/Type/Reason Admit Date/Time Aug 29, 2018 at 05:45 Initial Consult Date 08/30/18 Requesting Provider: SERGIO TREVINO MD Date/Time of Note DATE: 09/19/18 TIME: 10:57 Exam/Review of Systems Exam Vitals Vital Signs Date Temp Pulse Resp B/P (MAP) Pulse Ox O2 O2 Flow FiO2 Time Delivery Rate 09/19/18 72 26 160/67 100 Nasal 3.0 09:30 (98) Cannula 09/19/18 98.9 08:00 09/19/18 30 04:34 Intake and Output 09/18/18 09/18/18 09/19/18 1515:00 23:00 07:00 IntakeIntake Total 100.097 ml 0 ml 0 ml OutputOutput Total 885 ml 1070 ml 690 ml BalanceBalance -784.903 ml -1070 ml -690 ml Results Result Diagram: 09/19/18 0457 09/19/18 0459 Results 24hrs Laboratory Tests Test 09/18/18 16:06 09/19/18 04:57 09/19/18 04:59 09/19/18 05:05 Blood Gas Blood arterial Specimen Source Arterial Blood 09/18/2018 4:10: Date Drawn 59 PM Arterial Blood 7.405 pH (Temp corrected) Arterial Blood 34.6 L pCO2 (Temp correct) Arterial Blood 89.5 pO2 (Temp corrected) Arterial Blood 21.2 L HCO3 Arterial Blood -2.8 Base Excess Arterial Blood 95.9 Oxygen Saturatio n Domenico Test ACCEPTAB Arterial Blood Left Radial Gas Puncture Site Arterial 0.4 Blood Carboxyhem oglobin Arterial Blood 0.2 Methemoglobin Blood Gas A-a O2 83.7 H Differential Oxyhemoglobin 95.3 Percent Blood Gas 37.0 Temperature Blood Gas VENT - CPAP Modality FiO2 30.0 Blood Gas Tidal 450.0 Volume Blood Gas Low 5.0 PEEP Setting Blood Gas 15 Pressure Support Blood Gas Tabitha RIVERA RN Critical Value Read Back Blood Gas RDIX Notified Whom Blood Gas 09/18/2018 4:28: Notified Time 45 PM White Blood 5.6 Count Red Blood Count 3.47 L Hemoglobin 10.8 L Hematocrit 33.4 L Mean Corpuscular 96.3 Volume Mean Corpuscular 31.1 Hemoglobin Mean Corpuscular 32.3 Hemoglobin Irene nt Red Cell 15.2 H Distribution Width Platelet Count 161 # Mean Platelet 11.5 H Volume Immature 0.500 H Granulocytes % Neutrophils % Segmented 75 Neutrophils % (Manual) Lymphocytes % Lymphocytes % 19 (Manual) Monocytes % Monocytes % 6 (Manual) Eosinophils % Basophils % Nucleated Red 0.0 Blood Cells % Immature 0.030 Granulocytes # Neutrophils # Lymphocytes 1.0 (Manual) Lymphocytes # Monocytes # Monocytes # 0.3 (Manual) Eosinophils # Basophils # Nucleated Red Blood Cells # Platelet NORMAL Estimate Poikilocytosis 2+ Anisocytosis 1+ Macrocytosis 1+ Tear Drop Cells 1+ Sodium Level 148 H Potassium Level 4.5 Chloride Level 115 H Carbon Dioxide 23 Level Anion Gap 10 Blood Urea 60 H Nitrogen Creatinine 2.18 H Est Glomerular Filtrat Rate mL/min Glucose Level 87 Calcium Level 8.0 L Phosphorus Level 6.4 H Magnesium Level 2.1 Lab Scanned BLOOD TRANSFUSI Report ON Medications Medication Current Medications IV Flush (NS 3 ml) 3 ml PER PROTOCOL IV ; Start 08/29/18 at 06:00 Ondansetron HCl (Zofran Inj) 4 mg Q6H PRN IV NAUSEA/VOMITING Last administered on 08/31/18at 05:02; Admin Dose 4 MG; Start 08/29/18 at 06:00 Acetaminophen (Tylenol Tab) 650 mg Q6H PRN PO .PAIN 1-3 OR TEMP; Start 08/29/18 at 06:00 Magnesium Hydroxide (Milk Of Mag) 30 ml DAILY PRN PO .CONSTIPATION Last administered on 09/02/18at 05:16; Admin Dose 30 ML; Start 08/29/18 at 06:00 Escitalopram Oxalate (Lexapro) 20 mg DAILY PO Last administered on 09/18/18at 08:11; Admin Dose 20 MG; Start 08/30/18 at 09:00 Lorazepam (Ativan) 0.5 mg Q6H PRN PO ANXIETY; Start 09/02/18 at 13:00 Bisacodyl (Dulcolax Supp) 10 mg DAILY PRN HI CONSTIPATION; Start 09/03/18 at 12:00 Heparin Sodium (Porcine) (Heparin (5000 Units/1ml)) 5,000 unit BID SC Last administered on 09/19/18 09:00; Admin Dose 5,000 UNIT; Start 09/03/18 at 14:00 Hydralazine HCl (Apresoline) 10 mg Q3 PRN IV ELEVATED SYSTOLIC BP Last administered on 09/05/18 19:48; Admin Dose 10 MG; Start 09/03/18 at 18:00 Albuterol/ Ipratropium (Duoneb) 3 ml Q2H RESP THERAPY PRN HHN SHORTNESS OF BREATH Last administered on 09/19/18 00:10; Admin Dose 3 ML; Start 09/03/18 at 20:00 Lorazepam (Ativan) 1 mg Q6H PRN IV anxiety Last administered on 09/06/18at 00:00; Admin Dose 1 MG; Start 09/05/18 at 09:00 Propofol 100 ml @ 2.509 mls/ hr Q12H IV Last administered on 09/18/18 07:46; Admin Dose 12.546 MLS/HR; Start 09/06/18 at 09:30 Fentanyl 100 ml @ 2.5 mls/hr TITRATE IV Last administered on 09/17/18 11:11; Admin Dose 2.5 MLS/HR; Start 09/07/18 at 09:30 Multivitamins (Multivitamin) 30 ml DAILY NGT Last administered on 09/18/18at 0 8:11; Admin Dose 30 ML; Start 09/07/18 at 14:30 Zinc Sulfate (Zinc Sulfate) 220 mg DAILY PO Last administered on 09/18/18 08:11; Admin Dose 220 MG; Start 09/07/18 at 14:30 Ascorbic Acid (Vitamin C) 500 mg DAILY NGT Last administered on 09/18/18 08:11; Admin Dose 500 MG; Start 09/07/18 at 14:30 Folic Acid (Folic Acid) 1 mg DAILY NGT Last administered on 09/18/18 08:11; Admin Dose 1 MG; Start 09/07/18 at 14:30 Petrolatum (Vaseline) APPLY TO MULTIPLE SC... BID TOP Last administered on 09/19/18 08:51; Admin Dose 1 EA; Start 09/08/18 at 09:00 IV Flush (NS 10 ml) 10 ml PRN PRN IV FLUSH LINE; Start 09/09/18 at 11:30 Vancomycin HCl (Vancomycin Oral Syringe) 250 mg Q6 PO Last administered on 09/18/18 13:19; Admin Dose 250 MG; Start 09/10/18 at 12:00 Valacyclovir HCl (Valtrex) 500 mg BID PO Last administered on 09/18/18 08:11; Admin Dose 500 MG; Start 09/12/18 at 14:00 Triamcinolone Acetonide (Kenalog 0.1% Cr) 1 applic BID TOP Last administered on 09/19/18 08:51; Admin Dose 1 APPLIC; Start 09/12/18 at 14:00 Lactobacillus Acidophilus/ Rhamnosus (Culturelle) 1 cap BID PO Last adm inistered on 09/18/18 08:11; Admin Dose 1 CAP; Start 09/12/18 at 14:30 Sevelamer Carbonate (Renvela) 0.8 gm Q8H NGT Last administered on 09/18/18 13:19; Admin Dose 0.8 GM; Start 09/13/18 at 12:30 Lansoprazole (Prevacid) 30 mg BID@0600,1800 NGT Last administered on 09/18/18 05:26; Admin Dose 30 MG; Start 09/15/18 at 18:00 Docusate Sodium (Colace Liquid Cup) 100 mg BID PO Last administered on 09/18/18 08:11; Admin Dose 100 MG; Start 09/16/18 at 11:00 Docusate Sodium (Colace Liquid Cup) 100 mg Q12H PRN PO .CONSTIPATION; Start 09/16/18 at 11:00 Albuterol/ Ipratropium (Duoneb) 3 ml Q6H RESP THERAPY HHN Last administered on 09/19/18 08:38; Admin Dose 3 ML; Start 09/19/18 at 08:00 Methylprednisolone Sodium Succinate (Solu-Medrol) 40 mg Q8 IV Last administered on 09/19/18 08:51; Admin Dose 40 MG; Start 09/19/18 at 08:00 RAYNE CAMPOS NP Sep 19, 2018 10:57
--- NOTE | 2018-09-19 11:48 | PN ---
DATE: 09/19/2018 SUBJECTIVE: The patient extubated yesterday. Remains n.p.o., awaiting speech evaluation, does have ongoing cough with dark sputum production. Suctioning p.r.n. Noted Dr. Ponce recommendations to sta rt steroids with Solu-Medrol and breathing treatment are being given. The patient overall in no dist ress. VITAL SIGNS: Temperature 98.9, pulse 70, respirations 26, blood pressure is 145/70, saturation 99% o n 3 liters. GENERAL: The patient is in no acute distress, coughing frequently with phlegm production. I did suc tion him. CARDIOVASCULAR: Sinus S1, S2. LUNGS: Mild rhonchi at the bases. ABDOMEN: Soft, nontender. EXTREMITIES: Trace edema of the hands and feet. LABORATORY DATA: White count 5.6, hemoglobin 10.8, hematocrit 33, platelets 161, neutrophils 75%, ly mphs 19%. Chemistry: Sodium 148, potassium 4.5, chloride 115, bicarbonate 23, BUN is 60, creatinine 2.18 and glucose of 87. ABG done yesterday prior to extubation shows a pH of 7.4, pCO2 of 35, bicar bonate 21, saturation is 96%. This was on CPAP prior to extubation. MEDICATIONS: 1. DuoNeb every 6 hours. 2. Solu-Medrol 40 IV q.8. 3. Colace 100 b.i.d. and p.r.n. 4. Prevacid 30 twice a day. 5. Renvela 0.8 q.8. 6. Culturelle 1 cap b.i.d. 7. Valtrex 500 b.i.d. 8. Kenalog b.i.d. 9. Vancomycin 250 q. 6 hours. 10. Vaseline b.i.d. 11. Multivitamin 30 mL daily. 12. Zinc sulfate daily. 13. Vitamin C 500 mg daily. 14. Folic acid daily. 15. Lorazepam 1 mg IV q. p.r.n. 16. DuoNeb. 17. Hydralazine. 18. Heparin 5000 b.i.d. 19. Dulcolax p.r.n. 20. Ativan 0.5 orally q.6h. p.r.n. 21. Lexapro 20 mg daily. 22. Zofran p.r.n. 23. Tylenol p.r.n. 24. Milk of Magnesia p.r.n. ASSESSMENT AND PLAN: This is an 87-year-old [place] male with history of atrial fibrillation, hypert ension, low back pain, who presented with shortness of breath, was found to have multifocal pneumonia . Pre ARDS picture. Status post prolonged ventilatory support, extubated yesterday. 1. Respiratory. Continue with respiratory care, suctioning, breathing treatment around the clock, s teroids per Dr. Ponce, now off antibiotics. Sputum is very thick and dark. We will request a culture . so far normal and the patient is afebrile. Follow up chest x-rays. 2. Cardiovascular. Vitals are otherwise stable. Currently, n.p.o., off medications. On heparin for DVT prophylaxis. 3. Anemia, status post 2 units of PRBC much improved. Currently no evidence of bleeding. I appreci ate Dr. Rosales input. Continue proton pump inhibitor. 4. Dysphagia, status post extubation. Speech therapy to follow. 5. Multiple wounds. Continue wound care. 6. Neurologically stable, alert. 7. Acute renal failure, partly due to diuretics administration. We will follow. Urine output is ad equate, urine otherwise is clear. 8. Infectious disease. Status post empiric treatment for C. diff with vancomycin. We will follow u p. Overall cultures. ID is following the patient hemodynamically overall stable. Continue ICU care due to overall generalized weakness, prolonged ventilatory support and a high risk of aspiration. I have been in touch with the nephew regarding patient's care. He is aware of patient's overall condi tion. We will follow. Continue wound care and anxiolytics p.r.n. We will follow. Dictated By: SERGIO CERVANTES/NEHAL Conf#: [id number] DID#: [id number] CC: OLIVE ANDREWS MD;*End*
--- NOTE | 2018-09-19 12:21 | CONS ---
Assessment/Plan Assessment/Plan Assessment/Plan (Daily) IMPRESSION 1. Anemia with dark color stool and positive stool guaiac, most probably related to GI bleeding. 2. Renal insufficiency, which is stable. 3. Respiratory failure from the pneumonia, bilateral, ____ on vent. 4. Chronic obstructive pulmonary disease. 5. Critical care myopathy. 6. Status post surgery for the prostate and suprapubic catheter. 7. Multiple wounds. 8. The patient's 2D echocardiogram shows a 65% ejection fraction. Plan Swallow evaluation by the speech therapist before feeding the patient Continue present care Consultation Date/Type/Reason Admit Date/Time Aug 29, 2018 at 05:45 Initial Consult Date 09/07/18 Requesting Provider: SERGIO TREVINO MD Date/Time of Note DATE: 09/19/18 TIME: 12:20 24 HR Interval Summary Free Text/Dictation Patient successfully extubated last night Constitutional: no complaints, improved Exam/Review of Systems Exam Vitals Vital Signs Date Temp Pulse Resp B/P (MAP) Pulse Ox O2 O2 Flow FiO2 Time Delivery Rate 09/19/18 70 20 138/96 99 Nasal 3.0 11:00 (110) Cannula 09/19/18 98.9 08:00 09/19/18 30 04:34 Intake and Output 09/18/18 09/18/18 09/19/18 1515:00 23:00 07:00 IntakeIntake Total 100.097 ml 0 ml 0 ml OutputOutput Total 885 ml 1070 ml 690 ml BalanceBalance -784.903 ml -1070 ml -690 ml Constitutional: alert Respiratory: diminished breath sounds Results Result Diagram: 09/19/18 0457 09/19/18 0459 Results 24hrs Laboratory Tests Test 09/18/18 16:06 09/19/18 04:57 09/19/18 04:59 09/19/18 05:05 Blood Gas Blood arterial Specimen Source Arterial Blood 09/18/2018 4:10: Date Drawn 59 PM Arterial Blood 7.405 pH (Temp corrected) Arterial Blood 34.6 L pCO2 (Temp correct) Arterial Blood 89.5 pO2 (Temp corrected) Arterial Blood 21.2 L HCO3 Arterial Blood -2.8 Base Excess Arterial Blood 95.9 Oxygen Saturatio n Domenico Test ACCEPTAB Arterial Blood Left Radial Gas Puncture Site Arterial 0.4 Blood Carboxyhem oglobin Arterial Blood 0.2 Methemoglobin Blood Gas A-a O2 83.7 H Differential Oxyhemoglobin 95.3 Percent Blood Gas 37.0 Temperature Blood Gas VENT - CPAP Modality FiO2 30.0 Blood Gas Tidal 450.0 Volume Blood Gas Low 5.0 PEEP Setting Blood Gas 15 Pressure Support Blood Gas DanisCarla NICOLE MARKS Critical Value Read Back Blood Gas RDIX Notified Whom Blood Gas 09/18/2018 4:28: Notified Time 45 PM White Blood 5.6 Count Red Blood Count 3.47 L Hemoglobin 10.8 L Hematocrit 33.4 L Mean Corpuscular 96.3 Volume Mean Corpuscular 31.1 Hemoglobin Mean Corpuscular 32.3 Hemoglobin Irene nt Red Cell 15.2 H Distribution Width Platelet Count 161 # Mean Platelet 11.5 H Volume Immature 0.500 H Granulocytes % Neutrophils % Segmented 75 Neutrophils % (Manual) Lymphocytes % Lymphocytes % 19 (Manual) Monocytes % Monocytes % 6 (Manual) Eosinophils % Basophils % Nucleated Red 0.0 Blood Cells % Immature 0.030 Granulocytes # Neutrophils # Lymphocytes 1.0 (Manual) Lymphocytes # Monocytes # Monocytes # 0.3 (Manual) Eosinophils # Basophils # Nucleated Red Blood Cells # Platelet NORMAL Estimate Poikilocytosis 2+ Anisocytosis 1+ Macrocytosis 1+ Tear Drop Cells 1+ Sodium Level 148 H Potassium Level 4.5 Chloride Level 115 H Carbon Dioxide 23 Level Anion Gap 10 Blood Urea 60 H Nitrogen Creatinine 2.18 H Est Glomerular Filtrat Rate mL/min Glucose Level 87 Calcium Level 8.0 L Phosphorus Level 6.4 H Magnesium Level 2.1 Lab Scanned BLOOD TRANSFUSI Report ON Medications Medication Current Medications IV Flush (NS 3 ml) 3 ml PER PROTOCOL IV ; Start 08/29/18 at 06:00 Ondansetron HCl (Zofran Inj) 4 mg Q6H PRN IV NAUSEA/VOMITING Last administered on 08/31/18at 05:02; Admin Dose 4 MG; Start 08/29/18 at 06:00 Acetaminophen (Tylenol Tab) 650 mg Q6H PRN PO .PAIN 1-3 OR TEMP; Start 08/29/18 at 06:00 Magnesium Hydroxide (Milk Of Mag) 30 ml DAILY PRN PO .CONSTIPATION Last administered on 09/02/18at 05:16; Admin Dose 30 ML; Start 08/29/18 at 06:00 Escitalopram Oxalate (Lexapro) 20 mg DAILY PO Last administered on 09/18/18 08:11; Admin Dose 20 MG; Start 08/30/18 at 09:00 Lorazepam (Ativan) 0.5 mg Q6H PRN PO ANXIETY; Start 09/02/18 at 13:00 Bisacodyl (Dulcolax Supp) 10 mg DAILY PRN IN CONSTIPATION; Start 09/03/18 at 12:00 Heparin Sodium (Porcine) (Heparin (5000 Units/1ml)) 5,000 unit BID SC Last a dministered on 09/19/18 09:00; Admin Dose 5,000 UNIT; Start 09/03/18 at 14:00 Hydralazine HCl (Apresoline) 10 mg Q3 PRN IV ELEVATED SYSTOLIC BP Last administered on 09/05/18 19:48; Admin Dose 10 MG; Start 09/03/18 at 18:00 Albuterol/ Ipratropium (Duoneb) 3 ml Q2H RESP THERAPY PRN HHN SHORTNESS OF B REATH Last administered on 09/19/18 00:10; Admin Dose 3 ML; Start 09/03/18 at 20:00 Lorazepam (Ativan) 1 mg Q6H PRN IV anxiety Last administered on 09/06/18 00:00; Admin Dose 1 MG; Start 09/05/18 at 09:00 Propofol 100 ml @ 2.509 mls/ hr Q12H IV Last administered on 09/18/18 07:46; Admin Dose 12.546 MLS/HR; Start 09/06/18 at 09:30 Fentanyl 100 ml @ 2.5 mls/hr TITRATE IV Last administered on 09/17/18 11:11; Admin Dose 2.5 MLS/HR; Start 09/07/18 at 09:30 Multivitamins (Multivitamin) 30 ml DAILY NGT Last administered on 09/18/18 08:11; Admin Dose 30 ML; Start 09/07/18 at 14:30 Zinc Sulfate (Zinc Sulfate) 220 mg DAILY PO Last administered on 09/18/18 08:11; Admin Dose 220 MG; Start 09/07/18 at 14:30 Ascorbic Acid (Vitamin C) 500 mg DAILY NGT Last administered on 09/18/18 08:11; Admin Dose 500 MG; Start 09/07/18 at 14:30 Folic Acid (Folic Acid) 1 mg DAILY NGT Last administered on 09/18/18 08:11; Admin Dose 1 MG; Start 09/07/18 at 14:30 Petrolatum (Vaseline) APPLY TO MULTIPLE SC... BID TOP Last administered on 09/19/18 08:51; Admin Dose 1 EA; Start 09/08/18 at 09:00 IV Flush (NS 10 ml) 10 ml PRN PRN IV FLUSH LINE; Start 09/09/18 at 11:30 Vancomycin HCl (Vancomycin Oral Syringe) 250 mg Q6 PO Last administered on 09/18/18 13:19; Admin Dose 250 MG; Start 09/10/18 at 12:00 Valacyclovir HCl (Valtrex) 500 mg BID PO Last administered on 09/18/18 08:11; Admin Dose 500 MG; Start 09/12/18 at 14:00 Triamcinolone Acetonide (Kenalog 0.1% Cr) 1 applic BID TOP Last administered on 09/19/18 08:51; Admin Dose 1 APPLIC; Start 09/12/18 at 14:00 Lactobacillus Acidophilus/ Rhamnosus (Culturelle) 1 cap BID PO Last administered on 09/18/18 08:11; Admin Dose 1 CAP; Start 09/12/18 at 14:30 Sevelamer Carbonate (Renvela) 0.8 gm Q8H NGT Last administered on 09/18/18 13:19; Admin Dose 0.8 GM; Start 09/13/18 at 12:30 Lansoprazole (Prevacid) 30 mg BID@0600,1800 NGT Last administered on 09/18/18 05:26; Admin Dose 30 MG; Start 09/15/18 at 18:00 Docusate Sodium (Colace Liquid Cup) 100 mg BID PO Last administered on 09/18/18 08:11; Admin Dose 100 MG; Start 09/16/18 at 11:00 Docusate Sodium (Colace Liquid Cup) 100 mg Q12H PRN PO .CONSTIPATION; Start 09/16/18 at 11:00 Albuterol/ Ipratropium (Duoneb) 3 ml Q6H RESP THERAPY HHN Last administered on 09/19/18 08:38; Admin Dose 3 ML; Start 09/19/18 at 08:00 Methylprednisolone Sodium Succinate (Solu-Medrol) 40 mg Q8 IV Last administered on 09/19/18at 08:51; Admin Dose 40 MG; Start 09/19/18 at 08:00 Doxycycline Hyclate 100 mg/ Sodium Chloride 250 ml @ 250 mls/hr Q12 IVPB ; Start 09/19/18 at 13:00 TOOTIE HERNANDEZ MD Sep 19, 2018 12:21
[2018-09-19] MEDS: DOXYCYCLINE 100 MG in SOD CHLORIDE 0.9% 250 ML IVPB SCH ×2 (12:46→20:40)
[2018-09-20] VITALS (49 sets, daily range): BP systolic 122–165; BP diastolic 60–111; PULSE 72–97; RESP 18–28
[2018-09-20] MEDS: ALBUTEROL/IPRATROPIUM (NEB) 3 ML AMP HHN SCH ×3 (01:25→20:30)
[2018-09-20] MEDS: SEVELAMER CARBONATE 0.8 GM PKT NGT SCH ×3 (03:38→20:30)
[2018-09-20] MEDS: LANSOPRAZOLE 30 MG CAP NGT SCH ×2 (06:00→18:00)
[2018-09-20] MEDS: VANCOMYCIN HCL 250 MG/5ML POSYG PO SCH (06:00)
--- NOTE | 2018-09-20 06:42 | CONS ---
Consult Date/Type/Reason Admit Date/Time Aug 29, 2018 at 05:45 Initial Consult Date 09/07/18 Type of Consultation: neph Requesting Provider: SERGIO TREVINO MD Date/Time of Note DATE: 09/20/18 TIME: 06:37 Subjective 87-year-old Frisian male with history of atrial fibrillation, hypertension, low back pain, who presented with shortness of breath, was found to have extensive pneumonia, intubated, The patient was extubated 09/18. had colonoscopy. somewhat confused. continues good uo. No other acute events noted. No hemoptysis, hematemesis or hematochezia. poc reviewed with dr. javid sainied well overnight. was given metolazone and lasix previously. OBJECTIVE: HEENT: Head is normocephalic. NECK: Supple. HEART: Regular rate. LUNGS: Show diminished breath sounds at the base. ABDOMEN: Soft, nontender to palpation without rebound or guarding. EXTREMITIES: Negative for clubbing, cyanosis, no edema. DERMATOLOGIC: No rashes. MUSCULOSKELETAL: No joint effusion. NEUROLOGIC: No change in exam. Objective Vitals Vital Signs Date Temp Pulse Resp B/P (MAP) Pulse Ox O2 O2 Flow FiO2 Time Delivery Rate 09/20/18 98.0 83 25 147/83 100 Nasal 3.0 04:00 (104) Cannula 09/20/18 30 01:25 Intake and Output 09/19/18 09/19/18 09/20/18 1515:00 23:00 07:00 IntakeIntake Total 250 ml 0 ml 50 ml OutputOutput Total 875 ml 650 ml 260 ml BalanceBalance -625 ml -650 ml -210 ml Results/Medications Result Diagram: 09/20/18 0517 09/20/18 0500 Results 24 hrs Laboratory Tests Test 09/20/18 05:00 09/20/18 05:17 Sodium Level 150 H Potassium Level 4.2 Chloride Level 117 H Carbon Dioxide Level 24 Anion Gap 9 Blood Urea Nitrogen 52 H Creatinine 2.05 H Est Glomerular Filtrat Rate mL/min Glucose Level 135 # Calcium Level 8.2 L Phosphorus Level 5.5 H Magnesium Level 2.1 White Blood Count 6.0 Red Blood Count 3.41 L Hemoglobin 10.4 L Hematocrit 32.5 L Mean Corpuscular Volume 95.3 Mean Corpuscular Hemoglobin 30.5 Mean Corpuscular Hemoglobin Concent 32.0 Red Cell Distribution Width 14.8 H Platelet Count 172 Mean Platelet Volume 11.3 H Immature Granulocytes % 0.700 H Neutrophils % 89.8 H Lymphocytes % 7.5 L Monocytes % 1.8 Eosinophils % 0.0 Basophils % 0.2 Nucleated Red Blood Cells % 0.0 Immature Granulocytes # 0.040 H Neutrophils # 5.4 Lymphocytes # 0.5 L Monocytes # 0.1 L Eosinophils # 0.0 Basophils # 0.0 Nucleated Red Blood Cells # 0.0 Home Meds Reported Medications Losartan Potassium* (Losartan Potassium*) 50 Mg Tablet, 50 MG PO DAILY, TAB 08/29/18 Simvastatin (Simvastatin) 20 Mg Tablet, 20 MG PO QHS for 90 Days, #90 08/29/18 Furosemide* (Furosemide*) 40 Mg Tablet, 40 MG PO DAILY for 90 Days, #90 08/29/18 Potassium Chloride (K-Tab ER) 8 Meq Tablet.er, 8 MEQ PO BID for 90 Days, #180 08/29/18 Escitalopram Oxalate* (Escitalopram Oxalate*) 10 Mg Tablet, 20 MG PO DAILY for 90 Days, #90 08/29/18 Hydrocodone Bit-Acetaminophen (Hydrocodone Bit-APAP) 5-325MG Tablet, 1 TAB PO DAILY 08/29/18 Dexlansoprazole (Dexilant) 60 Mg Tree., 60 MG PO DAILY for 90 Days, #90 08/29/18 Amiodarone Hcl* (Amiodarone Hcl*) 200 Mg Tablet, 200 MG PO DAILY for 90 Days, #90 08/29/18 Alprazolam* (Alprazolam*) 0.5 Mg Tablet, 0.5 MG PO QHS for 30 Days, #30 08/29/18 Medications Current Medications IV Flush (NS 3 ml) 3 ml PER PROTOCOL IV ; Start 08/29/18 at 06:00 Ondansetron HCl (Zofran Inj) 4 mg Q6H PRN IV NAUSEA/VOMITING Last administered on 08/31/18at 05:02; Admin Dose 4 MG; Start 08/29/18 at 06:00 Acetaminophen (Tylenol Tab) 650 mg Q6H PRN PO .PAIN 1-3 OR TEMP; Start 08/29/18 at 06:00 Magnesium Hydroxide (Milk Of Mag) 30 ml DAILY PRN PO .CONSTIPATION Last administered on 09/02/18 05:16; Admin Dose 30 ML; Start 08/29/18 at 06:00 Escitalopram Oxalate (Lexapro) 20 mg DAILY PO Last administered on 09/18/18 08:11; Admin Dose 20 MG; Start 08/30/18 at 09:00 Lorazepam (Ativan) 0.5 mg Q6H PRN PO ANXIETY; Start 09/02/18 at 13:00 Bisacodyl (Dulcolax Supp) 10 mg DAILY PRN [place] CONSTIPATION; Start 09/03/18 at 12:00 Heparin Sodium (Porcine) (Heparin (5000 Units/1ml)) 5,000 unit BID SC Last administered on 09/19/18 21:04; Admin Dose 5,000 UNIT; Start 09/03/18 at 14:00 Hydralazine HCl (Apresoline) 10 mg Q3 PRN IV ELEVATED SYSTOLIC BP Last administered on 09/05/18 19:48; Admin Dose 10 MG; Start 09/03/18 at 18:00 Albuterol/ Ipratropium (Duoneb) 3 ml Q2H RESP THERAPY PRN HHN SHORTNESS OF BREATH Last administered on 09/19/18at 00:10; Admin Dose 3 ML; Start 09/03/18 at 20:00 Lorazepam (Ativan) 1 mg Q6H PRN IV anxiety Last administered on 09/06/18at 00:00; Admin Dose 1 MG; Start 09/05/18 at 09:00 Propofol 100 ml @ 2.509 mls/ hr Q12H IV Last administered on 09/18/18at 07:46; Admin Dose 12.546 MLS/HR; Start 09/06/18 at 09:30 Fentanyl 100 ml @ 2.5 mls/hr TITRATE IV Last administered on 09/17/18at 11:11; Admin Dose 2.5 MLS/HR; Start 09/07/18 at 09:30 Multivitamins (Multivitamin) 30 ml DAILY NGT Last administered on 09/18/18at 0 8:11; Admin Dose 30 ML; Start 09/07/18 at 14:30 Zinc Sulfate (Zinc Sulfate) 220 mg DAILY PO Last administered on 09/18/18at 08:11; Admin Dose 220 MG; Start 09/07/18 at 14:30 Ascorbic Acid (Vitamin C) 500 mg DAILY NGT Last administered on 09/18/18 08:11; Admin Dose 500 MG; Start 09/07/18 at 14:30 Folic Acid (Folic Acid) 1 mg DAILY NGT Last administered on 09/18/18 08:11; Admin Dose 1 MG; Start 09/07/18 at 14:30 Petrolatum (Vaseline) APPLY TO MULTIPLE SC... BID TOP Last administered on 09/19/18 20:42; Admin Dose 1 EA; Start 09/08/18 at 09:00 IV Flush (NS 10 ml) 10 ml PRN PRN IV FLUSH LINE; Start 09/09/18 at 11:30 Vancomycin HCl (Vancomycin Oral Syringe) 250 mg Q6 PO Last administered on 09/18/18 13:19; Admin Dose 250 MG; Start 09/10/18 at 12:00 Valacyclovir HCl (Valtrex) 500 mg BID PO Last administered on 09/18/18 08:11; Admin Dose 500 MG; Start 09/12/18 at 14:00 Triamcinolone Acetonide (Kenalog 0.1% Cr) 1 applic BID TOP Last administered on 09/19/18 20:41; Admin Dose 1 APPLIC; Start 09/12/18 at 14:00 Lactobacillus Acidophilus/ Rhamnosus (Culturelle) 1 cap BID PO Last adm inistered on 09/18/18 08:11; Admin Dose 1 CAP; Start 09/12/18 at 14:30 Sevelamer Carbonate (Renvela) 0.8 gm Q8H NGT Last administered on 09/18/18 13:19; Admin Dose 0.8 GM; Start 09/13/18 at 12:30 Lansoprazole (Prevacid) 30 mg BID@0600,1800 NGT Last administered on 09/18/18 05:26; Admin Dose 30 MG; Start 09/15/18 at 18:00 Docusate Sodium (Colace Liquid Cup) 100 mg BID PO Last administered on 09/18/18 08:11; Admin Dose 100 MG; Start 09/16/18 at 11:00 Docusate Sodium (Colace Liquid Cup) 100 mg Q12H PRN PO .CONSTIPATION; Start 09/16/18 at 11:00 Albuterol/ Ipratropium (Duoneb) 3 ml Q6H RESP THERAPY HHN Last administered on 09/20/18at 01:25; Admin Dose 3 ML; Start 09/19/18 at 08:00 Methylprednisolone Sodium Succinate (Solu-Medrol) 40 mg Q8 IV Last administered on 09/19/18at 20:55; Admin Dose 40 MG; Start 09/19/18 at 08:00 Doxycycline Hyclate 100 mg/ Sodium Chloride 250 ml @ 250 mls/hr Q12 IVPB Last administered on 09/19/18at 20:40; Admin Dose 250 MLS/HR; Start 09/19/18 at 13:00 Assessment/Plan Hospital Course (Demo Recall) 1. Nonoliguric acute kidney injury with unknown baseline creatinine. Etiology of acute kidney injury is secondary to acute tubular necrosis and hemodynamics. Renal function has been fluctuating, but overall stable. Continue current treatment plans, supportive care, and renally dose all medications. may need to tolerate some azotemia to achieve euvolemia. 2. Volume overload. Etiology is multifactorial secondary to sepsis, heart failure, capillary leak. monitor I's and O's and electrolytes closely. diuresed well overnight. was given metolazone and lasix in past but now diuresing well with spot doses of lasix. 3. Hypernatremia. Continue free water flushes. 4. Anemia with evidence of gastrointestinal bleed. The patient is status post blood transfusion.Continue to monitor. Continue proton pump inhibitor. gi fu. 5. Mineral bone disorder. Monitor calcium and phosphorus levels. 6. sp Ventilator-dependent respiratory failure. now extubated 7. Sepsis secondary to pneumonia. Continue current antibiotic regimen. 8. Acute encephalopathy, etiology is toxic metabolic. 9. History of benign prostatic hypertrophy. 10. History of diastolic heart failure. Continue medical management as stated above. NICHOLAS FIORE MD Sep 20, 2018 06:42
[2018-09-20] MEDS: METHYLPREDNISOLONE 40 MG INJ IV SCH ×3 (06:46→21:02)
--- NOTE | 2018-09-20 08:45 | CONS ---
Assessment/Plan Assessment/Plan Assessment/Plan (Daily) Assessment and recommendations; 1. Patient admitted with severe bilateral pneumonia with marked interval clinical and radiological improvement. Status post extubation day before yesterday with stable clinical status. 2. Dysphagia. Likely exacerbated by intubation. 3. COPD. Wheezing has resolved after initiation of Solu-Medrol yesterday. 4. Mild chronic renal insufficiency with improving serum creatinine. 5. Mild anemia. 6. Improving thrombocytopenia. 7. History of cardiac arrhythmia, patient remains in sinus rhythm. Continue with supportive care. Decrease Solu-Medrol to 40 mg every 12 hours with further tapering down in 24 hours as dictated by clinical status. Patient to undergo swallow evaluation, meanwhile I would recommend passing a small bore NG tube for feeding purposes as well as for administration of free water for correction of mild hypernatremia. Consultation Date/Type/Reason Admit Date/Time Aug 29, 2018 at 05:45 Initial Consult Date 08/30/18 Type of Consult Pulmonary Patient condition is tenuous. On BiPAP. Having significant chest congestion. Take slightly yellow-tinged secretions noted on suctioning. Patient requiring deep nasotracheal suctioning. General exam; elderly male, mildly lethargic. Requesting Provider: SERGIO TREVINO MD Date/Time of Note DATE: 09/20/18 TIME: 08:42 24 HR Interval Summary Free Text/Dictation Patient's condition is stable. Remains completely awake and alert. Has remained hemodynamically stable. Doing very well on 2 L nasal cannula. General exam; elderly male, currently no distress. Exam/Review of Systems Exam Vitals Vital Signs Date Temp Pulse Resp B/P (MAP) Pulse Ox O2 O2 Flow FiO2 Time Delivery Rate 09/20/18 72 08:01 09/20/18 23 153/63 100 Nasal 3.0 07:00 (93) Cannula 09/20/18 98.0 04:00 09/20/18 30 01:25 Intake and Output 09/19/18 09/19/18 09/20/18 1515:00 23:00 07:00 IntakeIntake Total 250 ml 0 ml 50 ml OutputOutput Total 875 ml 650 ml 380 ml BalanceBalance -625 ml -650 ml -330 ml Exam H EENT exam; supple neck, no JVD. No lymphadenopathy. Midline trachea. No thyromegaly. Patient does have crusting around nares. Upper jaw is edentulous. Pupils are small bilaterally. Chest exam; diminished breath sounds bilaterally. No wheezing. S1-S2 audible, no murmurs. Regular rhythm. Abdomen exam; soft, nondistended. Nontender. No organomegaly. Bowel sounds audible. Extremity exam; no peripheral edema. 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 Patient though exhibiting generalized weakness. Results Result Diagram: 09/20/18 0517 09/20/18 0500 Results 24hrs Laboratory Tests Test 09/20/18 05:00 09/20/18 05:17 Sodium Level 150 H Potassium Level 4.2 Chloride Level 117 H Carbon Dioxide Level 24 Anion Gap 9 Blood Urea Nitrogen 52 H Creatinine 2.05 H Est Glomerular Filtrat Rate mL/min Glucose Level 135 # Calcium Level 8.2 L Phosphorus Level 5.5 H Magnesium Level 2.1 White Blood Count 6.0 Red Blood Count 3.41 L Hemoglobin 10.4 L Hematocrit 32.5 L Mean Corpuscular Volume 95.3 Mean Corpuscular Hemoglobin 30.5 Mean Corpuscular Hemoglobin Concent 32.0 Red Cell Distribution Width 14.8 H Platelet Count 172 Mean Platelet Volume 11.3 H Immature Granulocytes % 0.700 H Neutrophils % 89.8 H Lymphocytes % 7.5 L Monocytes % 1.8 Eosinophils % 0.0 Basophils % 0.2 Nucleated Red Blood Cells % 0.0 Immature Granulocytes # 0.040 H Neutrophils # 5.4 Lymphocytes # 0.5 L Monocytes # 0.1 L Eosinophils # 0.0 Basophils # 0.0 Nucleated Red Blood Cells # 0.0 Medications Medication Current Medications IV Flush (NS 3 ml) 3 ml PER PROTOCOL IV ; Start 08/29/18 at 06:00 Ondansetron HCl (Zofran Inj) 4 mg Q6H PRN IV NAUSEA/VOMITING Last administered on 08/31/18at 05:02; Admin Dose 4 MG; Start 08/29/18 at 06:00 Acetaminophen (Tylenol Tab) 650 mg Q6H PRN PO .PAIN 1-3 OR TEMP; Start 08/29/18 at 06:00 Magnesium Hydroxide (Milk Of Mag) 30 ml DAILY PRN PO .CONSTIPATION Last administered on 09/02/18at 05:16; Admin Dose 30 ML; Start 08/29/18 at 06:00 Escitalopram Oxalate (Lexapro) 20 mg DAILY PO Last administered on 09/18/18 08:11; Admin Dose 20 MG; Start 08/30/18 at 09:00 Lorazepam (Ativan) 0.5 mg Q6H PRN PO ANXIETY; Start 09/02/18 at 13:00 Bisacodyl (Dulcolax Supp) 10 mg DAILY PRN [place] CONSTIPATION; Start 09/03/18 at 12:00 Heparin Sodium (Porcine) (Heparin (5000 Units/1ml)) 5,000 unit BID SC Last administered on 09/19/18 21:04; Admin Dose 5,000 UNIT; Start 09/03/18 at 14:00 Hydralazine HCl (Apresoline) 10 mg Q3 PRN IV ELEVATED SYSTOLIC BP Last ad ministered on 09/05/18 19:48; Admin Dose 10 MG; Start 09/03/18 at 18:00 Albuterol/ Ipratropium (Duoneb) 3 ml Q2H RESP THERAPY PRN HHN SHORTNESS OF BREATH Last administered on 09/19/18 00:10; Admin Dose 3 ML; Start 09/03/18 at 20:00 Lorazepam (Ativan) 1 mg Q6H PRN IV anxiety Last administered on 09/06/18 00:00; Admin Dose 1 MG; Start 09/05/18 at 09:00 Propofol 100 ml @ 2.509 mls/ hr Q12H IV Last administered on 09/18/18 07:46; Admin Dose 12.546 MLS/HR; Start 09/06/18 at 09:30 Fentanyl 100 ml @ 2.5 mls/hr TITRATE IV Last administered on 09/17/18 11:11; Admin Dose 2.5 MLS/HR; Start 09/07/18 at 09:30 Multivitamins (Multivitamin) 30 ml DAILY NGT Last administered on 09/18/18 08:11; Admin Dose 30 ML; Start 09/07/18 at 14:30 Zinc Sulfate (Zinc Sulfate) 220 mg DAILY PO Last administered on 09/18/18 08:11; Admin Dose 220 MG; Start 09/07/18 at 14:30 Ascorbic Acid (Vitamin C) 500 mg DAILY NGT Last administered on 09/18/18 08:11; Admin Dose 500 MG; Start 09/07/18 at 14:30 Folic Acid (Folic Acid) 1 mg DAILY NGT Last administered on 09/18/18 08:11; Admin Dose 1 MG; Start 09/07/18 at 14:30 Petrolatum (Vaseline) APPLY TO MULTIPLE SC... BID TOP Last administered on 09/19/18 20:42; Admin Dose 1 EA; Start 09/08/18 at 09:00 IV Flush (NS 10 ml) 10 ml PRN PRN IV FLUSH LINE; Start 09/09/18 at 11:30 Vancomycin HCl (Vancomycin Oral Syringe) 250 mg Q6 PO Last administered on 09/18/18 13:19; Admin Dose 250 MG; Start 09/10/18 at 12:00 Valacyclovir HCl (Valtrex) 500 mg BID PO Last administered on 09/18/18 08:11; Admin Dose 500 MG; Start 09/12/18 at 14:00 Triamcinolone Acetonide (Kenalog 0.1% Cr) 1 applic BID TOP Last administered on 09/19/18 20:41; Admin Dose 1 APPLIC; Start 09/12/18 at 14:00 Lactobacillus Acidophilus/ Rhamnosus (Culturelle) 1 cap BID PO Last administered on 09/18/18 08:11; Admin Dose 1 CAP; Start 09/12/18 at 14:30 Sevelamer Carbonate (Renvela) 0.8 gm Q8H NGT Last administered on 09/18/18 13:19; Admin Dose 0.8 GM; Start 09/13/18 at 12:30 Lansoprazole (Prevacid) 30 mg BID@0600,1800 NGT Last administered on 09/18/18 05:26; Admin Dose 30 MG; Start 09/15/18 at 18:00 Docusate Sodium (Colace Liquid Cup) 100 mg BID PO Last administered on 09/18/18 08:11; Admin Dose 100 MG; Start 09/16/18 at 11:00 Docusate Sodium (Colace Liquid Cup) 100 mg Q12H PRN PO .CONSTIPATION; Start 09/16/18 at 11:00 Albuterol/ Ipratropium (Duoneb) 3 ml Q6H RESP THERAPY HHN Last administered on 09/20/18 01:25; Admin Dose 3 ML; Start 09/19/18 at 08:00 Methylprednisolone Sodium Succinate (Solu-Medrol) 40 mg Q8 IV Last administered on 09/20/18at 06:46; Admin Dose 40 MG; Start 09/19/18 at 08:00 Doxycycline Hyclate 100 mg/ Sodium Chloride 250 ml @ 250 mls/hr Q12 IVPB Last administered on 09/19/18at 20:40; Admin Dose 250 MLS/HR; Start 09/19/18 at 13:00 JUDE GODINEZ Sep 20, 2018 08:45
[2018-09-20] MEDS: LACTOBACILLUS RHAMNOSUS CAP NGT SCH ×2 (09:00→21:00)
[2018-09-20] MEDS: FOLIC ACID 1 MG TAB NGT SCH (09:00)
[2018-09-20] MEDS: DOCUSATE SODIUM 10 MG/ML (10ML CUP) NGT SCH ×2 (09:00→21:00)
[2018-09-20] MEDS: valACYclovir 500 MG TAB NGT SCH ×2 (09:00→21:00)
[2018-09-20] MEDS: ZINC SULFATE 220 MG CAP NGT SCH (09:00)
[2018-09-20] MEDS: MULTIVITAMINS 30 ML CUP NGT SCH (09:00)
[2018-09-20] MEDS ORDERED: MAGNESIUM HYDROXIDE 30ML CUP NGT PRN (09:00)
[2018-09-20] MEDS ORDERED: ESCITALOPRAM 10 MG TAB NGT SCH (09:00)
[2018-09-20] MEDS: ASCORBIC ACID 500 MG TAB NGT SCH (09:00)
[2018-09-20] MEDS ORDERED: ACETAMINOPHEN 650MG/20.3ML CUP NGT PRN (09:00)
[2018-09-20] MEDS: DOXYCYCLINE 100 MG in SOD CHLORIDE 0.9% 250 ML IVPB SCH (09:14)
[2018-09-20] MEDS: PETROLATUM 5 GM OINT TOP SCH ×2 (09:14→21:16)
[2018-09-20] MEDS: BALSAM PERU/CASTOR OIL 60 GM TUBE TOP SCH ×2 (09:15→21:04)
[2018-09-20] MEDS: TRIAMCINOLONE ACET 0.1% 15 GM CR TOP SCH ×2 (09:15→21:05)
[2018-09-20] MEDS: HEPARIN 5,000 UNIT/1 ML VIAL SC SCH ×2 (09:22→21:37)
[2018-09-20] MEDS: DEXTROSE 5% 1,000 ML IV SCH (09:27)
[2018-09-20] MEDS: PROPOFOL 100 ML IV SCH ×2 (09:30→21:05)
--- NOTE | 2018-09-20 10:46 | CONS ---
Assessment/Plan Assessment/Plan Hospital Course (Demo Recall) ID NOTE CURRENT ABX: DAY # =>Vanco PO + Valacyclovir + Doxy #2 S/P Vanco IV + Merrem s/p Cefepime s/p Azith #8 09/20/18 0517 09/20/18 0500 24H INTERVAL SUMMARY * Patient stable on supplemental O2 2L post Extubation * VSS, no fevers, WBC stable * Patient requiring deep nasotracheal suctioning * Patient declined NGT insertion per pulmonary recommending NG tube for feeding & administration of free water for correction of mild hypernatremia. MICRO/OTHER * 08/29/18 (-) BCx * 08/29/18 Urine Cx (-) * 08/29 & 08/31/18 (-)MRSA * 08/30/18 (-)INFLUENZA A/B * 09/12/18 BCX (+) 1/ BOTTLES: CoNS * 09/14/18 (-) Urine * 09/14/18 ETT Aspirate: (+)C. Albicans * 09/17/18 LIP CX (+)WOUND CULTURE Preliminary Organism 1 COAGULASE NEGATIVE STAPH QUANTITY 1+ COAG NEG M.I.C. RX --------- --- CEFAZOLIN R CIPROFLOXACIN >=8 R CLINDAMYCIN >=8 R DOXYCYCLINE I ERYTHROMYCIN >=8 R LEVOFLOXACIN >=8 R OXACILLIN >=4 R PENICILLIN-G >=0.5 R RIFAMPIN <=0.5 S VANCOMYCIN 1 S TRIMETHOPRIM/SULFAMETHOXAZOLE 160 R IMAGING * )09/18/18 CXR: Mild increase in diffuse bilateral interstitial opacities, representing edema versus pneumonia. No significant change in small bilateral pleural effusions and bibasilar opacities. Support lines and tubes as described. * 09/05/18 CXR: IMPRESSION: Diffuse bilateral heterogeneous infiltrates. PHYSICAL EXAMINATION: GENERAL: VSS, NAD, Awake, Alert, anxious ?confused? HEENT: AT, NC == full face mask BIPAP NECK: Trach midline CHEST: Equal chest rise bilaterally == acute resp failure on BIPAP ABD: Soft, NT EXTREMITIES: Warm, dry SKIN: No rash, no diaphoresis ID ASSESSMENT 87 yo M admit with: 1. Sepsis due to acute Pneumonia/ARDS == RESOLVING * Afebrile today * Leukocytosis RESOLVED * (-)Strep PNA bacterial AB; (-)Mycoplasma (atypical PNA) 2. Acute hypoxemic respiratory failure 3. 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 Mild CHF-> Hx of diastolic dysfunction 5. Essential HTN 6. Afib-> Rate controlled 7. BPH w/urinary retention 8. Urinary tract infection as per urinalysis 9. Acute kidney injury * 08/29/18 Renal US: kidneys are not visualized due to overlying bowel gas. 10. 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 Continue to monitor for recurrent pulmonary sepsis due to retained secretions and chest congestion 2. Pulmonary toilet 3. DC Doxycycline for (+)Staph lip wound as Doxy only INTERMEDIATE sensitive to Doxy. * Rx Topical Bactroban to lip lesions * Start short course Zyvox IV x 3 days as patient with RICHARD and needs swallow eval = Avoid Vanco due to RICHARD * NOTE: Zyvox interacts w/Escitalopram; however Psych meds on HOLD as no NGT * Short course while psych med on hold until last day 09/24/18 then re-start Psych med . . Consultation Date/Type/Reason Admit Date/Time Aug 29, 2018 at 05:45 Initial Consult Date 08/30/18 Requesting Provider: SERGIO TREVINO MD Date/Time of Note DATE: 09/20/18 TIME: 10:35 Exam/Review of Systems Exam Vitals Vital Signs Date Temp Pulse Resp B/P (MAP) Pulse Ox O2 O2 Flow FiO2 Time Delivery Rate 09/20/18 71 20 96 21 10:00 09/20/18 97.5 141/69 Nasal 2.0 08:00 (93) Cannula Intake and Output 09/19/18 09/19/18 09/20/18 1515:00 23:00 07:00 IntakeIntake Total 250 ml 0 ml 50 ml OutputOutput Total 875 ml 650 ml 380 ml BalanceBalance -625 ml -650 ml -330 ml Results Result Diagram: 09/20/18 0517 09/20/18 0500 Results 24hrs Laboratory Tests Test 09/20/18 05:00 09/20/18 05:17 Sodium Level 150 H Potassium Level 4.2 Chloride Level 117 H Carbon Dioxide Level 24 Anion Gap 9 Blood Urea Nitrogen 52 H Creatinine 2.05 H Est Glomerular Filtrat Rate mL/min Glucose Level 135 # Calcium Level 8.2 L Phosphorus Level 5.5 H Magnesium Level 2.1 White Blood Count 6.0 Red Blood Count 3.41 L Hemoglobin 10.4 L Hematocrit 32.5 L Mean Corpuscular Volume 95.3 Mean Corpuscular Hemoglobin 30.5 Mean Corpuscular Hemoglobin Concent 32.0 Red Cell Distribution Width 14.8 H Platelet Count 172 Mean Platelet Volume 11.3 H Immature Granulocytes % 0.700 H Neutrophils % 89.8 H Lymphocytes % 7.5 L Monocytes % 1.8 Eosinophils % 0.0 Basophils % 0.2 Nucleated Red Blood Cells % 0.0 Immature Granulocytes # 0.040 H Neutrophils # 5.4 Lymphocytes # 0.5 L Monocytes # 0.1 L Eosinophils # 0.0 Basophils # 0.0 Nucleated Red Blood Cells # 0.0 Medications Medication Current Medications IV Flush (NS 3 ml) 3 ml PER PROTOCOL IV ; Start 08/29/18 at 06:00 Ondansetron HCl (Zofran Inj) 4 mg Q6H PRN IV NAUSEA/VOMITING Last administered on 08/31/18at 05:02; Admin Dose 4 MG; Start 08/29/18 at 06:00 Lorazepam (Ativan) 0.5 mg Q6H PRN PO ANXIETY; Start 09/02/18 at 13:00 Bisacodyl (Dulcolax Supp) 10 mg DAILY PRN [place] CONSTIPATION; Start 09/03/18 at 12:00 Heparin Sodium (Porcine) (Heparin (5000 Units/1ml)) 5,000 unit BID SC Last administered on 09/20/18at 09:22; Admin Dose 5,000 UNIT; Start 09/03/18 at 14:00 Hydralazine HCl (Apresoline) 10 mg Q3 PRN IV ELEVATED SYSTOLIC BP Last administered on 09/05/18at 19:48; Admin Dose 10 MG; Start 09/03/18 at 18:00 Albuterol/ Ipratropium (Duoneb) 3 ml Q2H RESP THERAPY PRN HHN SHORTNESS OF BREATH Last administered on 09/19/18 00:10; Admin Dose 3 ML; Start 09/03/18 at 20:00 Lorazepam (Ativan) 1 mg Q6H PRN IV anxiety Last administered on 09/06/18 00:00; Admin Dose 1 MG; Start 09/05/18 at 09:00 Propofol 100 ml @ 2.509 mls/ hr Q12H IV Last administered on 09/18/18 07:46; Admin Dose 12.546 MLS/HR; Start 09/06/18 at 09:30 Fentanyl 100 ml @ 2.5 mls/hr TITRATE IV Last administered on 09/17/18 11:11; Admin Dose 2.5 MLS/HR; Start 09/07/18 at 09:30 Multivitamins (Multivitamin) 30 ml DAILY NGT Last administered on 09/18/18 08:11; Admin Dose 30 ML; Start 09/07/18 at 14:30 Ascorbic Acid (Vitamin C) 500 mg DAILY NGT Last administered on 09/18/18 08:11; Admin Dose 500 MG; Start 09/07/18 at 14:30 Folic Acid (Folic Acid) 1 mg DAILY NGT Last administered on 09/18/18 08:11; Admin Dose 1 MG; Start 09/07/18 at 14:30 Petrolatum (Vaseline) APPLY TO MULTIPLE SC... BID TOP Last administered on 09/20/18 09:14; Admin Dose 1 EA; Start 09/08/18 at 09:00 IV Flush (NS 10 ml) 10 ml PRN PRN IV FLUSH LINE; Start 09/09/18 at 11:30 Triamcinolone Acetonide (Kenalog 0.1% Cr) 1 applic BID TOP Last administered on 09/20/18 09:15; Admin Dose 1 APPLIC; Start 09/12/18 at 14:00 Sevelamer Carbonate (Renvela) 0.8 gm Q8H NGT Last administered on 09/18/18 13:19; Admin Dose 0.8 GM; Start 09/13/18 at 12:30 Lansoprazole (Prevacid) 30 mg BID@0600,1800 NGT Last administered on 09/18/18 05:26; Admin Dose 30 MG; Start 09/15/18 at 18:00 Albuterol/ Ipratropium (Duoneb) 3 ml Q6H RESP THERAPY HHN Last administered on 09/20/18at 09:59; Admin Dose 3 ML; Start 09/19/18 at 08:00 Doxycycline Hyclate 100 mg/ Sodium Chloride 250 ml @ 250 mls/hr Q12 IVPB Last administered on 09/20/18at 09:14; Admin Dose 250 MLS/HR; Start 09/19/18 at 13:00 Methylprednisolone Sodium Succinate (Solu-Medrol) 30 mg Q12 IV Last administered on 09/20/18 09:40; Admin Dose 30 MG; Start 09/20/18 at 09:00 Acetaminophen (Tylenol Liquid) 650 mg Q6H PRN NGT .PAIN 1-3 OR TEMP; Start 09/20/18 at 09:00 Docusate Sodium (Colace Liquid Cup) 100 mg BID NGT ; Start 09/20/18 at 09:00 Docusate Sodium (Colace Liquid Cup) 100 mg Q12H PRN NGT .CONSTIPATION; Start 09/20/18 at 11:00 Escitalopram Oxalate (Lexapro) 20 mg DAILY NGT ; Start 09/20/18 at 09:00 Lactobacillus Acidophilus/ Rhamnosus (Culturelle) 1 cap BID NGT ; Start 09/20/18 at 09:00 Magnesium Hydroxide (Milk Of Mag) 30 ml DAILY PRN NGT .CONSTIPATION; Start 09/20/18 at 09:00 Valacyclovir HCl (Valtrex) 500 mg BID NGT ; Start 09/20/18 at 09:00 Vancomycin HCl (Vancomycin Oral Syringe) 250 mg Q6 NGT ; Start 09/20/18 at 12:00 Zinc Sulfate (Zinc Sulfate) 220 mg DAILY NGT ; Start 09/20/18 at 09:00 Dextrose 1,000 ml @ 50 mls/hr Q20H IV Last administered on 09/20/18 09:27; Admin Dose 50 MLS/HR; Start 09/20/18 at 09:30 RAYNE CAMPOS NP Sep 20, 2018 10:46
[2018-09-20] MEDS ORDERED: DOCUSATE SODIUM 10 MG/ML (10ML CUP) NGT PRN (11:00)
[2018-09-20] MEDS: LINEZOLID 600 MG/300 ML (PMX) 300 ML IVPB SCH ×2 (11:06→21:02)
[2018-09-20] MEDS: ALBUTEROL/IPRATROPIUM (NEB) 3 ML AMP HHN PRN (11:11)
[2018-09-20] MEDS: VANCOMYCIN HCL 250 MG/5ML POSYG NGT SCH ×3 (12:00→23:43)
[2018-09-20] MEDS: MUPIROCIN 2% 22 GM OINT TOP SCH ×2 (12:40→21:04)
[2018-09-20] MEDS: CHLORHEXIDINE GLUCONATE 15 ML UD CUP MT SCH ×2 (15:03→21:02)
--- NOTE | 2018-09-20 15:06 | CONS ---
Assessment/Plan Assessment/Plan Assessment/Plan (Daily) Assessment/Plan Assessment/Plan Assessment/Plan (Daily) IMPRESSION 1. Anemia with dark color stool and positive stool guaiac, most probably related to GI bleeding. 2. Renal insufficiency, which is stable. 3. Respiratory failure from the pneumonia, bilateral, ____ on vent. 4. Chronic obstructive pulmonary disease. 5. Critical care myopathy. 6. Status post surgery for the prostate and suprapubic catheter. 7. Multiple wounds. 8. The patient's 2D echocardiogram shows a 65% ejection fraction. Plan Swallow evaluation by the speech therapist before feeding the patient Continue present care Discussed with the daughter Consultation Date/Type/Reason Admit Date/Time Aug 29, 2018 at 05:45 Initial Consult Date 09/07/18 Requesting Provider: SERGIO TREVINO MD Date/Time of Note DATE: 09/20/18 TIME: 15:05 24 HR Interval Summary Constitutional: no complaints, improved Exam/Review of Systems Exam Vitals Vital Signs Date Temp Pulse Resp B/P (MAP) Pulse Ox O2 O2 Flow FiO2 Time Delivery Rate 09/20/18 85 22 146/63 Room Air 13:00 (90) 09/20/18 98 12:30 09/20/18 1.0 12:00 09/20/18 98.3 12:00 09/20/18 21 10:00 Intake and Output 09/19/18 09/19/18 09/20/18 1515:00 23:00 07:00 IntakeIntake Total 250 ml 0 ml 50 ml OutputOutput Total 875 ml 650 ml 380 ml BalanceBalance -625 ml -650 ml -330 ml Constitutional: alert, oriented, well developed Psych: no complaints, nl mood/affect Head: normocephalic, atraumatic Eyes: nl conjunctiva, EOMI, nl lids, nl sclera, PERRL ENMT: nl external ears & nose, nl lips & teeth, nl nasal mucosa & septum Neck: supple, non-tender Respiratory: clear to auscultation, normal air movement Cardiovascular: regular rate and rhythm, nl pulses Gastrointestinal: soft, nl liver, spleen, non-tender Musculoskeletal: nl extremities to inspection, nl gait and stance Extremities: normal pulses Neurological: PLUMBING [employer] II-XII intact, nl mental status, nl speech, nl strength Skin: nl turgor; No rash or lesions Lymph: nl lymph nodes Results Result Diagram: 09/20/18 0517 09/20/18 0500 Results 24hrs Laboratory Tests Test 09/20/18 05:00 09/20/18 05:17 Sodium Level 150 H Potassium Level 4.2 Chloride Level 117 H Carbon Dioxide Level 24 Anion Gap 9 Blood Urea Nitrogen 52 H Creatinine 2.05 H Est Glomerular Filtrat Rate mL/min Glucose Level 135 # Calcium Level 8.2 L Phosphorus Level 5.5 H Magnesium Level 2.1 White Blood Count 6.0 Red Blood Count 3.41 L Hemoglobin 10.4 L Hematocrit 32.5 L Mean Corpuscular Volume 95.3 Mean Corpuscular Hemoglobin 30.5 Mean Corpuscular Hemoglobin Concent 32.0 Red Cell Distribution Width 14.8 H Platelet Count 172 Mean Platelet Volume 11.3 H Immature Granulocytes % 0.700 H Neutrophils % 89.8 H Lymphocytes % 7.5 L Monocytes % 1.8 Eosinophils % 0.0 Basophils % 0.2 Nucleated Red Blood Cells % 0.0 Immature Granulocytes # 0.040 H Neutrophils # 5.4 Lymphocytes # 0.5 L Monocytes # 0.1 L Eosinophils # 0.0 Basophils # 0.0 Nucleated Red Blood Cells # 0.0 Medications Medication Current Medications IV Flush (NS 3 ml) 3 ml PER PROTOCOL IV ; Start 08/29/18 at 06:00 Ondansetron HCl (Zofran Inj) 4 mg Q6H PRN IV NAUSEA/VOMITING Last administered on 08/31/18at 05:02; Admin Dose 4 MG; Start 08/29/18 at 06:00 Lorazepam (Ativan) 0.5 mg Q6H PRN PO ANXIETY; Start 09/02/18 at 13:00 Bisacodyl (Dulcolax Supp) 10 mg DAILY PRN SC CONSTIPATION; Start 09/03/18 at 12:00 Heparin Sodium (Porcine) (Heparin (5000 Units/1ml)) 5,000 unit BID SC Last administered on 09/20/18at 09:22; Admin Dose 5,000 UNIT; Start 09/03/18 at 14:00 Hydralazine HCl (Apresoline) 10 mg Q3 PRN IV ELEVATED SYSTOLIC BP Last administered on 09/05/18at 19:48; Admin Dose 10 MG; Start 09/03/18 at 18:00 Albuterol/ Ipratropium (Duoneb) 3 ml Q2H RESP THERAPY PRN HHN SHORTNESS OF BREATH Last administered on 09/20/18 11:11; Admin Dose 3 ML; Start 09/03/18 at 20:00 Lorazepam (Ativan) 1 mg Q6H PRN IV anxiety Last administered on 09/06/18 00:00; Admin Dose 1 MG; Start 09/05/18 at 09:00 Propofol 100 ml @ 2.509 mls/ hr Q12H IV Last administered on 09/18/18 07:46; Admin Dose 12.546 MLS/HR; Start 09/06/18 at 09:30 Fentanyl 100 ml @ 2.5 mls/hr TITRATE IV Last administered on 09/17/18 11:11; Admin Dose 2.5 MLS/HR; Start 09/07/18 at 09:30; Status Hold Multivitamins (Multivitamin) 30 ml DAILY NGT Last administered on 09/18/18 08:11; Admin Dose 30 ML; Start 09/07/18 at 14:30 Ascorbic Acid (Vitamin C) 500 mg DAILY NGT Last administered on 09/18/18 08:11; Admin Dose 500 MG; Start 09/07/18 at 14:30 Folic Acid (Folic Acid) 1 mg DAILY NGT Last administered on 09/18/18 08:11; Admin Dose 1 MG; Start 09/07/18 at 14:30 Petrolatum (Vaseline) APPLY TO MULTIPLE SC... BID TOP Last administered on 09/20/18 09:14; Admin Dose 1 EA; Start 09/08/18 at 09:00 IV Flush (NS 10 ml) 10 ml PRN PRN IV FLUSH LINE; Start 09/09/18 at 11:30 Triamcinolone Acetonide (Kenalog 0.1% Cr) 1 applic BID TOP Last administered on 09/20/18 09:15; Admin Dose 1 APPLIC; Start 09/12/18 at 14:00 Sevelamer Carbonate (Renvela) 0.8 gm Q8H NGT Last administered on 09/18/18 13:19; Admin Dose 0.8 GM; Start 09/13/18 at 12:30 Lansoprazole (Prevacid) 30 mg BID@0600,1800 NGT Last administered on 6/21/19at 05:26; Admin Dose 30 MG; Start 09/15/18 at 18:00 Albuterol/ Ipratropium (Duoneb) 3 ml Q6H RESP THERAPY HHN Last administered on 09/20/18at 09:59; Admin Dose 3 ML; Start 09/19/18 at 08:00 Methylprednisolone Sodium Succinate (Solu-Medrol) 30 mg Q12 IV Last administered on 09/20/18 09:40; Admin Dose 30 MG; Start 09/20/18 at 09:00 Acetaminophen (Tylenol Liquid) 650 mg Q6H PRN NGT .PAIN 1-3 OR TEMP; Start 09/20/18 at 09:00 Docusate Sodium (Colace Liquid Cup) 100 mg BID NGT ; Start 09/20/18 at 09:00 Docusate Sodium (Colace Liquid Cup) 100 mg Q12H PRN NGT .CONSTIPATION; Start 09/20/18 at 11:00 Escitalopram Oxalate (Lexapro) 20 mg DAILY NGT ; Start 09/20/18 at 09:00; Status Hold Lactobacillus Acidophilus/ Rhamnosus (Culturelle) 1 cap BID NGT ; Start 09/20/18 at 09:00 Magnesium Hydroxide (Milk Of Mag) 30 ml DAILY PRN NGT .CONSTIPATION; Start 09/20/18 at 09:00 Valacyclovir HCl (Valtrex) 500 mg BID NGT ; Start 09/20/18 at 09:00 Vancomycin HCl (Vancomycin Oral Syringe) 250 mg Q6 NGT ; Start 09/20/18 at 12:00 Zinc Sulfate (Zinc Sulfate) 220 mg DAILY NGT ; Start 09/20/18 at 09:00 Dextrose 1,000 ml @ 50 mls/hr Q20H IV Last administered on 09/20/18 09:27; Admin Dose 50 MLS/HR; Start 09/20/18 at 09:30 Linezolid 300 ml @ 300 mls/hr Q12 IVPB Last administered on 09/20/18at 11:06; Admin Dose 300 MLS/HR; Start 09/20/18 at 11:00; Stop 09/24/18 at 10:59 Mupirocin (Bactroban) 1 applic BID TOP Last administered on 09/20/18at 12:40; Admin Dose 1 APPLIC; Start 6/23/19 at 11:30 Chlorhexidine Gluconate (Peridex) 15 ml BID MT Last administered on 09/20/18at 15:03; Admin Dose 15 ML; Start 09/20/18 at 14:00 TOOTIE HERNANDEZ MD Sep 20, 2018 15:06
--- NOTE | 2018-09-20 16:52 | PN ---
DATE: 09/20/2018 SUBJECTIVE: The patient was seen, remains n.p.o. due to high risk of aspiration. Awaiting [facility] kacey martinez to evaluate the patient in the a.m. In the meantime, the patient with hypernatremia. IV hydra tion was started by the shoe stock associate. The patient is slightly anxious, likely due partly to the pat ient being on Solu-Medrol. Case discussed extensively with family members regarding plan of care. PHYSICAL EXAMINATION: VITAL SIGNS: Temperature 97.5, afebrile, pulse 96, respirations 22, blood pressure 149/93, saturatio n 97% on supplemental oxygen via 1 liter nasal cannula. GENERAL: The patient is frail, pale, weak looking. HEENT: Some oral and nasal lesions. CARDIOVASCULAR: S1 and S2. LUNGS: Faint wheezing and rhonchi bilaterally. ABDOMEN: Soft. EXTREMITIES: +1 to 2 pedal edema and mild hand edema, otherwise no significant edema. LABORATORY DATA: Sodium is 150, potassium 4.2, chloride 117, bicarbonate 24, BUN is 52, creatinine 2 .05, glucose 135. White count is 6, hemoglobin 10.4, hematocrit 33, platelet count 172, neutrophils 90%, lymphocyte 8%. Wound culture shows coagulase negative staph. Urine culture negative. Nasophar yngeal shows no evidence of MRSA. MEDICATIONS: 1. Vancomycin 250 q.6 hours. This was discontinued. 2. Bactroban b.i.d. 3. Colace 100 q.12 hours p.r.n. 4. Linezolid 600 IV q.12. 4. Solu-Medrol 30 mg IV q.12. 5. Tylenol p.r.n. 6. The patient's code is n.p.o., so he is not taking any oral meds for now. 7. DuoNeb every 6 hours. 8. Prevacid 30 b.i.d., currently off. 9. Renvela 0.8 q.8. 10. Multivitamin as directed, currently off. 11. Vaseline as directed. 12. Ativan p.r.n. 13. Hydralazine p.r.n. ASSESSMENT AND PLAN: This is an 87-year-old [place] male with history of atrial fibrillation, hyper tension, low back pain, who presents with shortness of breath, was found to have multifocal pneumonia , pre ARDS picture, status post prolonged ventilatory support, now extubated 2 days ago. 1. Respiratory. The patient with ongoing wheezing. Continue breathing treatments, steroids, suctio riley and monitor white count and fevers. 2. Dysphagia prolonged ventilatory support. Speech therapy to follow. Hopefully, we can start diet . The patient has been refusing NG tube feeding for now. 3. Anemia, status post 2 units of packed red blood cells. Currently, no evidence of bleeding. H an d H remain stable. Appreciate Dr. Rosales input as we will be placing the patient on Pepcid IV as the patient cannot take oral pills for now. 4. Multiple wounds. Continue wound care. I appreciate Dr. Andersen followup. The patient was starte d on Zyvox for wound staph scabs. 5. Neurologically stable and alert, slightly anxious. 6. Acute renal failure due to diuretics administration. Nephrology is on board. The patient was st arted on D5 due to hypernatremia. 7. Status post brief treatment empirically for C. diff with oral vancomycin and Flagyl. 8. Keep in the ICU due to still fragile situation. We want to make sure he is also seen by speech t yefri prior to transfer. Definitely needs close monitoring, suctioning. Post-extubation, which was quite tenuous and challenging to extubate him. Case discussed with family. We will follow. Dictated By: SERGIO CERVANTES/NEHAL Conf#: [id number] DID#: [id number]
[2018-09-21] VITALS (18 sets, daily range): BP systolic 119–166; BP diastolic 56–98; PULSE 63–112; RESP 18–24
[2018-09-21] MEDS: ALBUTEROL/IPRATROPIUM (NEB) 3 ML AMP HHN SCH ×4 (01:58→21:41)
[2018-09-21] MEDS: SEVELAMER CARBONATE 0.8 GM PKT NGT SCH ×3 (04:26→20:30)
[2018-09-21] MEDS: ALBUTEROL/IPRATROPIUM (NEB) 3 ML AMP HHN PRN ×2 (04:42→06:45)
[2018-09-21] MEDS: VANCOMYCIN HCL 250 MG/5ML POSYG NGT SCH (06:00)
[2018-09-21] MEDS: LANSOPRAZOLE 30 MG CAP NGT SCH ×2 (06:00→18:00)
[2018-09-21] MEDS: DEXTROSE 5% 1,000 ML IV SCH (06:07)
[2018-09-21] MEDS ORDERED: POTASSIUM CHLORIDE (SR) 20 MEQ TAB PO STA (07:51)
--- NOTE | 2018-09-21 08:08 | PN ---
DATE: 09/21/2018 SUBJECTIVE: The patient is stable, no events overnight. No hemoptysis, hematemesis, hematochezia. OBJECTIVE: VITAL SIGNS: Blood pressure is 153/75, pulse 88, respirations 22, temperature 98.6. HEENT: Head is normocephalic. NECK: Supple. HEART: Regular rate. LUNGS: Show diminished breath sounds at the base. ABDOMEN: Soft, nontender to palpation without rebound or guarding. EXTREMITIES: Negative for clubbing, cyanosis. Positive edema. DERMATOLOGIC: No rashes. MUSCULOSKELETAL: No joint effusion. NEUROLOGIC: No change in exam. MEDICATIONS: Have been reviewed. LABORATORY DATA: Has been reviewed. IMAGING STUDIES: Have been reviewed. MICROBIOLOGY: Has been reviewed. ASSESSMENT AND PLAN: 1. Nonoliguric acute kidney injury with unknown baseline creatinine. Etiology of acute kidney injur y is secondary to acute tubular necrosis, hemodynamics. Renal function has been fluctuating but over all stable. Continue current treatment plan, supportive care, renally dose all meds. 2. Volume overload. Etiology is multifactorial secondary to sepsis, heart failure and capillary shameka k. Monitor I's and O's closely. Continue diuretic therapy. We will continue metolazone. 3. Hypernatremia. Continue D5 water, will increase rate to 75 mL an hour. Will continue diuresis w ith metolazone, which may help lower her sodium levels. Monitor closely. 4. Anemia with evidence of gastrointestinal bleed. The patient is status post blood transfusion. C ontinue to monitor hemoglobin and hematocrit levels. Follow up with GI. Continue proton pump inhibi tor. 5. Mineral bone disorder, monitor calcium and phosphorus levels. 6. Respiratory failure, status post extubation. Currently stable on nasal cannula. Continue to mon itor. 7. Sepsis secondary to pneumonia. Continue current antibiotic regimen. 8. Acute encephalopathy, etiology is toxic metabolic. 9. History of benign prostatic hypertrophy. 10. Diastolic heart failure. Continue intermittent diuretic therapy as stated above, the patient re maame volume overloaded. Dictated By: ANGELA BALLARD DO NR/NTS Conf#: [id number] DID#: [id number] CC: SERGIO TREVINO MD;*EndCC*
[2018-09-21] MEDS: POTASSIUM CHLORIDE 100 ML IVPB SCH ×2 (08:27→10:22)
[2018-09-21] MEDS ORDERED: BUMETANIDE 2 MG in DEXTROSE 5% 17 ML IVPB ONE (08:30)
[2018-09-21] MEDS: METHYLPREDNISOLONE 40 MG INJ IV SCH ×2 (08:30→21:02)
[2018-09-21] MEDS: LINEZOLID 600 MG/300 ML (PMX) 300 ML IVPB SCH ×2 (08:30→21:46)
[2018-09-21] MEDS ORDERED: METOLAZONE 5 MG TAB PO ONE (08:30)
[2018-09-21] MEDS: CHLORHEXIDINE GLUCONATE 15 ML UD CUP MT SCH ×2 (08:30→21:02)
[2018-09-21] MEDS: TRIAMCINOLONE ACET 0.1% 15 GM CR TOP SCH ×2 (08:31→21:51)
[2018-09-21] MEDS: BALSAM PERU/CASTOR OIL 60 GM TUBE TOP SCH ×2 (08:31→21:51)
[2018-09-21] MEDS: MUPIROCIN 2% 22 GM OINT TOP SCH ×2 (08:31→21:50)
[2018-09-21] MEDS: PETROLATUM 5 GM OINT TOP SCH ×2 (08:31→21:51)
[2018-09-21] MEDS: LACTOBACILLUS RHAMNOSUS CAP NGT SCH ×2 (08:32→20:52)
[2018-09-21] MEDS: DOCUSATE SODIUM 10 MG/ML (10ML CUP) NGT SCH ×2 (08:32→20:52)
[2018-09-21] MEDS: PROPOFOL 100 ML IV SCH (08:33)
[2018-09-21] MEDS: FOLIC ACID 1 MG TAB NGT SCH (08:33)
[2018-09-21] MEDS: ZINC SULFATE 220 MG CAP NGT SCH (08:33)
[2018-09-21] MEDS: MULTIVITAMINS 30 ML CUP NGT SCH (08:33)
[2018-09-21] MEDS: valACYclovir 500 MG TAB NGT SCH ×2 (08:33→20:53)
[2018-09-21] MEDS: ASCORBIC ACID 500 MG TAB NGT SCH (08:33)
[2018-09-21] MEDS: HEPARIN 5,000 UNIT/1 ML VIAL SC SCH ×2 (08:37→21:42)
--- NOTE | 2018-09-21 10:57 | CONS ---
Consult Date/Type/Reason Admit Date/Time Aug 29, 2018 at 05:45 Initial Consult Date 08/30/18 Type of Consult Pulmonary Requesting Provider: SERGIO TREVINO MD Date/Time of Note DATE: 09/21/18 TIME: 10:54 Subjective Patient slowly improving continues nasal cannula O2. Status post diuretics this morning. Wheezing improved. Objective Vital Signs Date Temp Pulse Resp B/P (MAP) Pulse Ox O2 O2 Flow FiO2 Time Delivery Rate 09/21/18 85 22 150/98 100 Nasal 2.0 10:00 (115) Cannula 09/21/18 97.9 08:00 09/21/18 28 04:40 Intake and Output 09/20/18 09/20/18 09/21/18 1515:00 23:00 07:00 IntakeIntake Total 775 ml 750 ml 350 ml OutputOutput Total 460 ml 455 ml 280 ml BalanceBalance 315 ml 295 ml 70 ml Exam GENERAL: Elderly gentleman appears comfortable at rest no acute distress VITAL SIGNS: per chart NECK: Supple. No JVD or lymphadenopathy. CARDIAC EXAM: S1, S2. No added sounds or murmurs. CHEST: Diminished air entry bilaterally with few expiratory wheezes ABDOMEN: Soft, nontender. No guarding or rebound. EXTREMITIES: No cyanosis, clubbing edema +1 NEUROLOGIC: Generalized weakness. No focal deficits. Vent Setting Ventilator Support Mode: CPAP Fraction of Inspired Oxygen pe: 28 Positive End Expiratory Pressu: 5.0 Results/Medications Result Diagram: 09/21/1842709/21/188 Results 24 hrs Laboratory Tests Test 09/21/18 04:28 White Blood Count 7.3 # Red Blood Count 3.40 L Hemoglobin 10.4 L Hematocrit 32.8 L Mean Corpuscular Volume 96.5 Mean Corpuscular Hemoglobin 30.6 Mean Corpuscular Hemoglobin Concent 31.7 L Red Cell Distribution Width 15.3 H Platelet Count 196 Mean Platelet Volume 11.5 H Immature Granulocytes % 0.700 H Neutrophils % 91.1 H Lymphocytes % 4.5 L Monocytes % 3.7 Eosinophils % 0.0 Basophils % 0.0 Nucleated Red Blood Cells % 0.0 Immature Granulocytes # 0.050 H Neutrophils # 6.6 Lymphocytes # 0.3 L Monocytes # 0.3 Eosinophils # 0.0 Basophils # 0.0 Nucleated Red Blood Cells # 0.0 Sodium Level 148 H Potassium Level 3.6 Chloride Level 114 H Carbon Dioxide Level 26 Anion Gap 8 Blood Urea Nitrogen 48 H Creatinine 1.98 H Est Glomerular Filtrat Rate mL/min Glucose Level 151 Calcium Level 8.0 L Phosphorus Level 4.9 Magnesium Level 2.1 Medications Current Medications IV Flush (NS 3 ml) 3 ml PER PROTOCOL IV ; Start 08/29/18 at 06:00 Ondansetron HCl (Zofran Inj) 4 mg Q6H PRN IV NAUSEA/VOMITING Last administered on 08/31/18at 05:02; Admin Dose 4 MG; Start 08/29/18 at 06:00 Lorazepam (Ativan) 0.5 mg Q6H PRN PO ANXIETY; Start 09/02/18 at 13:00 Bisacodyl (Dulcolax Supp) 10 mg DAILY PRN ID CONSTIPATION; Start 09/03/18 at 12:00 Heparin Sodium (Porcine) (Heparin (5000 Units/1ml)) 5,000 unit BID SC Last adm inistered on 09/21/18at 08:37; Admin Dose 5,000 UNIT; Start 09/03/18 at 14:00 Hydralazine HCl (Apresoline) 10 mg Q3 PRN IV ELEVATED SYSTOLIC BP Last administered on 09/05/18at 19:48; Admin Dose 10 MG; Start 09/03/18 at 18:00 Albuterol/ Ipratropium (Duoneb) 3 ml Q2H RESP THERAPY PRN HHN SHORTNESS OF VICENTA ATH Last administered on 09/21/18 06:45; Admin Dose 3 ML; Start 09/03/18 at 20:00 Lorazepam (Ativan) 1 mg Q6H PRN IV anxiety Last administered on 09/06/18at 00:00; Admin Dose 1 MG; Start 09/05/18 at 09:00 Propofol 100 ml @ 2.509 mls/ hr Q12H IV Last administered on 09/18/18 07:46; Admin Dose 12.546 MLS/HR; Start 09/06/18 at 09:30 Fentanyl 100 ml @ 2.5 mls/hr TITRATE IV Last administered on 09/17/18at 11:11; Admin Dose 2.5 MLS/HR; Start 09/07/18 at 09:30; Status Hold Multivitamins (Multivitamin) 30 ml DAILY NGT Last administered on 09/18/18 08:11; Admin Dose 30 ML; Start 09/07/18 at 14:30 Ascorbic Acid (Vitamin C) 500 mg DAILY NGT Last administered on 09/18/18 08:11; Admin Dose 500 MG; Start 09/07/18 at 14:30 Folic Acid (Folic Acid) 1 mg DAILY NGT Last administered on 09/18/18 08:11; Admin Dose 1 MG; Start 09/07/18 at 14:30 Petrolatum (Vaseline) APPLY TO MULTIPLE SC... BID TOP Last administered on 09/21/18 08:31; Admin Dose 1 EA; Start 09/08/18 at 09:00 IV Flush (NS 10 ml) 10 ml PRN PRN IV FLUSH LINE; Start 09/09/18 at 11:30 Triamcinolone Acetonide (Kenalog 0.1% Cr) 1 applic BID TOP Last administered on 09/21/18 08:31; Admin Dose 1 APPLIC; Start 09/12/18 at 14:00 Sevelamer Carbonate (Renvela) 0.8 gm Q8H NGT Last administered on 09/18/18 13:19; Admin Dose 0.8 GM; Start 09/13/18 at 12:30 Lansoprazole (Prevacid) 30 mg BID@0600,1800 NGT Last administered on 09/18/18 05:26; Admin Dose 30 MG; Start 09/15/18 at 18:00 Albuterol/ Ipratropium (Duoneb) 3 ml Q6H RESP THERAPY HHN Last administered on 09/21/18 01:58; Admin Dose 3 ML; Start 09/19/18 at 08:00 Methylprednisolone Sodium Succinate (Solu-Medrol) 30 mg Q12 IV Last administered on 09/21/18 08:30; Admin Dose 30 MG; Start 09/20/18 at 09:00 Acetaminophen (Tylenol Liquid) 650 mg Q6H PRN NGT .PAIN 1-3 OR TEMP; Start 09/20/18 at 09:00 Docusate Sodium (Colace Liquid Cup) 100 mg BID NGT ; Start 09/20/18 at 09:00 Docusate Sodium (Colace Liquid Cup) 100 mg Q12H PRN NGT .CONSTIPATION; Start 09/20/18 at 11:00 Escitalopram Oxalate (Lexapro) 20 mg DAILY NGT ; Start 09/20/18 at 09:00; Status Hold Lactobacillus Acidophilus/ Rhamnosus (Culturelle) 1 cap BID NGT ; Start 09/20/18 at 09:00 Magnesium Hydroxide (Milk Of Mag) 30 ml DAILY PRN NGT .CONSTIPATION; Start 09/20/18 at 09:00 Valacyclovir HCl (Valtrex) 500 mg BID NGT ; Start 09/20/18 at 09:00 Vancomycin HCl (Vancomycin Oral Syringe) 250 mg Q6 NGT ; Start 09/20/18 at 12:00 Zinc Sulfate (Zinc Sulfate) 220 mg DAILY NGT ; Start 09/20/18 at 09:00 Dextrose 1,000 ml @ 75 mls/hr [id number] IV Last administered on 09/21/18at 06:07; Admin Dose 50 MLS/HR; Start 09/20/18 at 09:30 Linezolid 300 ml @ 300 mls/hr Q12 IVPB Last administered on 09/21/18at 08:30; Admin Dose 300 MLS/HR; Start 09/20/18 at 11:00; Stop 09/24/18 at 10:59 Mupirocin (Bactroban) 1 applic BID TOP Last administered on 09/21/18at 08:31; Admin Dose 1 APPLIC; Start 09/20/18 at 11:30 Chlorhexidine Gluconate (Peridex) 15 ml BID MT Last administered on 09/21/18at 08:30; Admin Dose 15 ML; Start 09/20/18 at 14:00 Potassium Chloride 100 ml @ 50 mls/hr Q2H IVPB Last administered on 09/21/18at 10:22; Admin Dose 50 MLS/HR; Start 09/21/18 at 08:30; Stop 09/21/18 at 12:29 Assessment/Plan Hospital Course (Demo Recall) Assessment 1. Acute hypoxemic respiratory failure likely secondary to combination of pneumonia and CHF 2. COPD with possible exacerbation currently on steroids 3. History of renal insufficiency 4. Hypernatremia 5. Encephalopathy toxic metabolic Plan 1. Continue steroids 2. Continue diuretics 3. Aspiration precautions 4. Physical therapy eval 5. Free water for elevated sodium 6. DVT and GI prophylaxis Consider addressing CODE STATUS. Critical care time 40 minutes OLIVE ANDREWS MD, [facility] Sep 21, 2018 10:57
--- NOTE | 2018-09-21 11:57 | CONS ---
Assessment/Plan Assessment/Plan Hospital Course (Demo Recall) Patient is awake looks comfortable on nasal cannula no fevers overnight son at bedside WBC 7.3 platelets 196 neutrophils 91.1 BUN 49 creatinine 1.98 Antimicrobials: Patient remains on oral vancomycin Zyvox Valtrex Indwelling's: Mcgowan catheter, PICC Physical examination: Well-developed well-nourished elderly man who is awake in no distress. Head atraumatic normocephalic sclera nonicteric vehicle mucosa dry neck is supple chest rise symmetrical breath sounds with bilateral rhonchi. Hea rt: S1-S2. Abdomen soft bowel sounds present. Assessment: 1. Acute hypoxemic respiratory failure status post extubated 2. Status post pneumonia 3. CHF 4. Bradycardia 5. Acute kidney injury 6. Diarrhea 7. S/p leukocytosis 8. Mouth lesions, on empiric Valtrex and short course of Zyvox 9. Staph bacteremia cw contaminant Plan: Patient remains stable, failed swallow eval this morning, continue present care, DC oral vancomycin, continue anti-aspiration measures Consultation Date/Type/Reason Admit Date/Time Aug 29, 2018 at 05:45 Initial Consult Date 08/30/18 Type of Consult id Requesting Provider: SERGIO TREVINO MD Date/Time of Note DATE: 09/21/18 TIME: 11:55 Exam/Review of Systems Exam Vitals Vital Signs Date Temp Pulse Resp B/P (MAP) Pulse Ox O2 O2 Flow FiO2 Time Delivery Rate 09/21/18 88 22 125/65 100 Nasal 2.0 11:00 (85) Cannula 09/21/18 97.9 08:00 09/21/18 28 04:40 Intake and Output 09/20/18 09/20/18 09/21/18 1515:00 23:00 07:00 IntakeIntake Total 775 ml 750 ml 350 ml OutputOutput Total 460 ml 455 ml 280 ml BalanceBalance 315 ml 295 ml 70 ml Results Result Diagram: 09/21/18 0428 09/21/188 Results 24hrs Laboratory Tests Test 09/21/18 04:28 White Blood Count 7.3 # Red Blood Count 3.40 L Hemoglobin 10.4 L Hematocrit 32.8 L Mean Corpuscular Volume 96.5 Mean Corpuscular Hemoglobin 30.6 Mean Corpuscular Hemoglobin Concent 31.7 L Red Cell Distribution Width 15.3 H Platelet Count 196 Mean Platelet Volume 11.5 H Immature Granulocytes % 0.700 H Neutrophils % 91.1 H Lymphocytes % 4.5 L Monocytes % 3.7 Eosinophils % 0.0 Basophils % 0.0 Nucleated Red Blood Cells % 0.0 Immature Granulocytes # 0.050 H Neutrophils # 6.6 Lymphocytes # 0.3 L Monocytes # 0.3 Eosinophils # 0.0 Basophils # 0.0 Nucleated Red Blood Cells # 0.0 Sodium Level 148 H Potassium Level 3.6 Chloride Level 114 H Carbon Dioxide Level 26 Anion Gap 8 Blood Urea Nitrogen 48 H Creatinine 1.98 H Est Glomerular Filtrat Rate mL/min Glucose Level 151 Calcium Level 8.0 L Phosphorus Level 4.9 Magnesium Level 2.1 Medications Medication Current Medications IV Flush (NS 3 ml) 3 ml PER PROTOCOL IV ; Start 08/29/18 at 06:00 Ondansetron HCl (Zofran Inj) 4 mg Q6H PRN IV NAUSEA/VOMITING Last administered on 08/31/18at 05:02; Admin Dose 4 MG; Start 08/29/18 at 06:00 Lorazepam (Ativan) 0.5 mg Q6H PRN PO ANXIETY; Start 09/02/18 at 13:00 Bisacodyl (Dulcolax Supp) [address] CONSTIPATION; Start 09/03/18 at 12:00 Heparin Sodium (Porcine) (Heparin (5000 Units/1ml)) 5,000 unit BID SC Last administered on 09/21/18at 08:37; Admin Dose 5,000 UNIT; Start 09/03/18 at 14:00 Hydralazine HCl (Apresoline) 10 mg Q3 PRN IV ELEVATED SYSTOLIC BP Last administered on 09/05/18at 19:48; Admin Dose 10 MG; Start 09/03/18 at 18:00 Albuterol/ Ipratropium (Duoneb) 3 ml Q2H RESP THERAPY PRN HHN SHORTNESS OF BREATH Last administered on 09/21/18at 06:45; Admin Dose 3 ML; Start 09/03/18 at 20:00 Lorazepam (Ativan) 1 mg Q6H PRN IV anxiety Last administered on 09/06/18at 00:00; Admin Dose 1 MG; Start 09/05/18 at 09:00 Propofol 100 ml @ 2.509 mls/ hr Q12H IV Last administered on 09/18/18 07:46; Admin Dose 12.546 MLS/HR; Start 09/06/18 at 09:30 Fentanyl 100 ml @ 2.5 mls/hr TITRATE IV Last administered on 09/17/18 11:11; Admin Dose 2.5 MLS/HR; Start 09/07/18 at 09:30; Status Hold Multivitamins (Multivitamin) 30 ml DAILY NGT Last administered on 09/18/18 08:11; Admin Dose 30 ML; Start 09/07/18 at 14:30 Ascorbic Acid (Vitamin C) 500 mg DAILY NGT Last administered on 09/18/18 08:11; Admin Dose 500 MG; Start 09/07/18 at 14:30 Folic Acid (Folic Acid) 1 mg DAILY NGT Last administered on 09/18/18 08:11; Admin Dose 1 MG; Start 09/07/18 at 14:30 Petrolatum (Vaseline) APPLY TO MULTIPLE SC... BID TOP Last administered on 09/21/18 08:31; Admin Dose 1 EA; Start 09/08/18 at 09:00 IV Flush (NS 10 ml) 10 ml PRN PRN IV FLUSH LINE; Start 09/09/18 at 11:30 Triamcinolone Acetonide (Kenalog 0.1% Cr) 1 applic BID TOP Last administered on 09/21/18 08:31; Admin Dose 1 APPLIC; Start 09/12/18 at 14:00 Sevelamer Carbonate (Renvela) 0.8 gm Q8H NGT Last administered on 09/18/18 13:19; Admin Dose 0.8 GM; Start 09/13/18 at 12:30 Lansoprazole (Prevacid) 30 mg BID@0600,1800 NGT Last administered on 09/18/18 05:26; Admin Dose 30 MG; Start 09/15/18 at 18:00 Albuterol/ Ipratropium (Duoneb) 3 ml Q6H RESP THERAPY HHN Last administered on 09/21/18 01:58; Admin Dose 3 ML; Start 09/19/18 at 08:00 Methylprednisolone Sodium Succinate (Solu-Medrol) 30 mg Q12 IV Last administered on 09/21/18 08:30; Admin Dose 30 MG; Start 09/20/18 at 09:00 Acetaminophen (Tylenol Liquid) 650 mg Q6H PRN NGT .PAIN 1-3 OR TEMP; Start 09/20/18 at 09:00 Docusate Sodium (Colace Liquid Cup) 100 mg BID NGT ; Start 09/20/18 at 09:00 Docusate Sodium (Colace Liquid Cup) 100 mg Q12H PRN NGT .CONSTIPATION; Start 09/20/18 at 11:00 Escitalopram Oxalate (Lexapro) 20 mg DAILY NGT ; Start 09/20/18 at 09:00; Status Hold Lactobacillus Acidophilus/ Rhamnosus (Culturelle) 1 cap BID NGT ; Start 09/20/18 at 09:00 Magnesium Hydroxide (Milk Of Mag) 30 ml DAILY PRN NGT .CONSTIPATION; Start 09/20/18 at 09:00 Valacyclovir HCl (Valtrex) 500 mg BID NGT ; Start 09/20/18 at 09:00 Vancomycin HCl (Vancomycin Oral Syringe) 250 mg Q6 NGT ; Start 09/20/18 at 12:00 Zinc Sulfate (Zinc Sulfate) 220 mg DAILY NGT ; Start 09/20/18 at 09:00 Dextrose 1,000 ml @ 75 mls/hr [id number] IV Last administered on 09/21/18at 06:07; Admin Dose 50 MLS/HR; Start 09/20/18 at 09:30 Linezolid 300 ml @ 300 mls/hr Q12 IVPB Last administered on 09/21/18at 08:30; Admin Dose 300 MLS/HR; Start 09/20/18 at 11:00; Stop 09/24/18 at 10:59 Mupirocin (Bactroban) 1 applic BID TOP Last administered on 09/21/18at 08:31; Admin Dose 1 APPLIC; Start 09/20/18 at 11:30 Chlorhexidine Gluconate (Peridex) 15 ml BID MT Last administered on 09/21/18at 08:30; Admin Dose 15 ML; Start 09/20/18 at 14:00 Potassium Chloride 100 ml @ 50 mls/hr Q2H IVPB Last administered on 09/21/18at 10:22; Admin Dose 50 MLS/HR; Start 09/21/18 at 08:30; Stop 09/21/18 at 12:29 TAYLOR RIZZO [employer] Sep 21, 2018 11:56
--- NOTE | 2018-09-21 13:09 | CONS ---
Assessment/Plan Assessment/Plan Hospital Course (Demo Recall) 87 yo male 1. Anemia with dark color stool and positive stool guaiac, most probably related to GI bleeding. -s/p EGD and colonoscopy -HH stable. 2. Renal insufficiency, which is stable. 3. Respiratory failure from the pneumonia 4. COPD 5. Critical care myopathy. 6. Status post surgery for the prostate and suprapubic catheter. 7. Multiple wounds. 8. The patient's 2D echocardiogram shows a 65% ejection fraction. 9. Acute gastritis 10. Polyp removed in descending colon during colonoscopy 11. Dysphagia -Speech therapy does not recommend PO feeding. Plan Recommend g tube since pt can not tolerate NGT per RN Continue present care Pt examined and plan of care d/w Dr Rosales Consultation Date/Type/Reason Admit Date/Time Aug 29, 2018 at 05:45 Initial Consult Date 09/07/18 Requesting Provider: SERGIO TREVINO MD Date/Time of Note DATE: 09/21/18 TIME: 13:04 24 HR Interval Summary Free Text/Dictation Pt was just transferred to telemetry, receiving breathing tx. Failed swallow eval. Has pulmonary edema so can not give IVF. Exam/Review of Systems Exam Vitals Vital Signs Date Temp Pulse Resp B/P (MAP) Pulse Ox O2 O2 Flow FiO2 Time Delivery Rate 09/21/18 97.6 83 18 166/82 96 11:57 (110) 09/21/18 Nasal 2.0 11:00 Cannula 09/21/18 28 04:40 Intake and Output 09/20/18 09/20/18 09/21/18 1515:00 23:00 07:00 IntakeIntake Total 775 ml 750 ml 350 ml OutputOutput Total 460 ml 455 ml 280 ml BalanceBalance 315 ml 295 ml 70 ml Constitutional: alert, oriented Psych: no complaints Head: normocephalic Eyes: PERRL Gastrointestinal: soft, non-tender Neurological: nl mental status Results Result Diagram: 09/21/188 09/21/18427 Results 24hrs Laboratory Tests Test 09/21/18 04:28 White Blood Count 7.3 # Red Blood Count 3.40 L Hemoglobin 10.4 L Hematocrit 32.8 L Mean Corpuscular Volume 96.5 Mean Corpuscular Hemoglobin 30.6 Mean Corpuscular Hemoglobin Concent 31.7 L Red Cell Distribution Width 15.3 H Platelet Count 196 Mean Platelet Volume 11.5 H Immature Granulocytes % 0.700 H Neutrophils % 91.1 H Lymphocytes % 4.5 L Monocytes % 3.7 Eosinophils % 0.0 Basophils % 0.0 Nucleated Red Blood Cells % 0.0 Immature Granulocytes # 0.050 H Neutrophils # 6.6 Lymphocytes # 0.3 L Monocytes # 0.3 Eosinophils # 0.0 Basophils # 0.0 Nucleated Red Blood Cells # 0.0 Sodium Level 148 H Potassium Level 3.6 Chloride Level 114 H Carbon Dioxide Level 26 Anion Gap 8 Blood Urea Nitrogen 48 H Creatinine 1.98 H Est Glomerular Filtrat Rate mL/min Glucose Level 151 Calcium Level 8.0 L Phosphorus Level 4.9 Magnesium Level 2.1 Medications Medication Current Medications IV Flush (NS 3 ml) 3 ml PER PROTOCOL IV ; Start 08/29/18 at 06:00 Ondansetron HCl (Zofran Inj) 4 mg Q6H PRN IV NAUSEA/VOMITING Last administered on 08/31/18at 05:02; Admin Dose 4 MG; Start 08/29/18 at 06:00 Lorazepam (Ativan) 0.5 mg Q6H PRN PO ANXIETY; Start 09/02/18 at 13:00 Bisacodyl (Dulcolax Supp) 10 mg DAILY PRN [place] CONSTIPATION; Start 09/03/18 at 12:00 Heparin Sodium (Porcine) (Heparin (5000 Units/1ml)) 5,000 unit BID SC Last administered on 09/21/18at 08:37; Admin Dose 5,000 UNIT; Start 09/03/18 at 14:00 Hydralazine HCl (Apresoline) 10 mg Q3 PRN IV ELEVATED SYSTOLIC BP Last administered on 09/05/18at 19:48; Admin Dose 10 MG; Start 09/03/18 at 18:00 Albuterol/ Ipratropium (Duoneb) 3 ml Q2H RESP THERAPY PRN HHN SHORTNESS OF BREATH Last administered on 09/21/18at 06:45; Admin Dose 3 ML; Start 09/03/18 at 20:00 Lorazepam (Ativan) 1 mg Q6H PRN IV anxiety Last administered on 09/06/18at 00:00; Admin Dose 1 MG; Start 09/05/18 at 09:00 Propofol 100 ml @ 2.509 mls/ hr Q12H IV Last administered on 09/18/18 07:46; Admin Dose 12.546 MLS/HR; Start 09/06/18 at 09:30 Fentanyl 100 ml @ 2.5 mls/hr TITRATE IV Last administered on 09/17/18 11:11; Admin Dose 2.5 MLS/HR; Start 09/07/18 at 09:30; Status Hold Multivitamins (Multivitamin) 30 ml DAILY NGT Last administered on 09/18/18 08:11; Admin Dose 30 ML; Start 09/07/18 at 14:30 Ascorbic Acid (Vitamin C) 500 mg DAILY NGT Last administered on 09/18/18 08:11; Admin Dose 500 MG; Start 09/07/18 at 14:30 Folic Acid (Folic Acid) 1 mg DAILY NGT Last administered on 09/18/18 08:11; Admin Dose 1 MG; Start 09/07/18 at 14:30 Petrolatum (Vaseline) APPLY TO MULTIPLE SC... BID TOP Last administered on 09/21/18 08:31; Admin Dose 1 EA; Start 09/08/18 at 09:00 IV Flush (NS 10 ml) 10 ml PRN PRN IV FLUSH LINE; Start 09/09/18 at 11:30 Triamcinolone Acetonide (Kenalog 0.1% Cr) 1 applic BID TOP Last administered on 09/21/18 08:31; Admin Dose 1 APPLIC; Start 09/12/18 at 14:00 Sevelamer Carbonate (Renvela) 0.8 gm Q8H NGT Last administered on 09/18/18 13:19; Admin Dose 0.8 GM; Start 09/13/18 at 12:30 Lansoprazole (Prevacid) 30 mg BID@0600,1800 NGT Last administered on 09/18/18 05:26; Admin Dose 30 MG; Start 09/15/18 at 18:00 Albuterol/ Ipratropium (Duoneb) 3 ml Q6H RESP THERAPY HHN Last administered on 09/21/18 01:58; Admin Dose 3 ML; Start 09/19/18 at 08:00 Methylprednisolone Sodium Succinate (Solu-Medrol) 30 mg Q12 IV Last adminis tered on 09/21/18 08:30; Admin Dose 30 MG; Start 09/20/18 at 09:00 Acetaminophen (Tylenol Liquid) 650 mg Q6H PRN NGT .PAIN 1-3 OR TEMP; Start 09/20/18 at 09:00 Docusate Sodium (Colace Liquid Cup) 100 mg BID NGT ; Start 09/20/18 at 09:00 Docusate Sodium (Colace Liquid Cup) 100 mg Q12H PRN NGT .CONSTIPATION; Start 09/20/18 at 11:00 Escitalopram Oxalate (Lexapro) 20 mg DAILY NGT ; Start 09/20/18 at 09:00; Status Hold Lactobacillus Acidophilus/ Rhamnosus (Culturelle) 1 cap BID NGT ; Start 09/20/18 at 09:00 Magnesium Hydroxide (Milk Of Mag) 30 ml DAILY PRN NGT .CONSTIPATION; Start 09/20/18 at 09:00 Valacyclovir HCl (Valtrex) 500 mg BID NGT ; Start 09/20/18 at 09:00 Zinc Sulfate (Zinc Sulfate) 220 mg DAILY NGT ; Start 09/20/18 at 09:00 Dextrose 1,000 ml @ 75 mls/hr [id number] IV Last administered on 09/21/18 06:07; Admin Dose 50 MLS/HR; Start 09/20/18 at 09:30 Linezolid 300 ml @ 300 mls/hr Q12 IVPB Last administered on 09/21/18at 08:30; Admin Dose 300 MLS/HR; Start 09/20/18 at 11:00; Stop 09/24/18 at 10:59 Mupirocin (Bactroban) 1 applic BID TOP Last administered on 09/21/18at 08:31; Admin Dose 1 APPLIC; Start 09/20/18 at 11:30 Chlorhexidine Gluconate (Peridex) 15 ml BID MT Last administered on 09/21/18 08:30; Admin Dose 15 ML; Start 09/20/18 at 14:00 ALEX FLYNN Sep 21, 2018 13:09
--- NOTE | 2018-09-21 14:40 | PN ---
DATE: 09/21/2018 SUBJECTIVE: The patient was seen, transferred to the telemetry unit. This patient has been doing be tter, but unfortunately failed the swallow evaluation today. The patient currently appears to be str onger, speaking with his nephew. PHYSICAL EXAMINATION: VITAL SIGNS: Temperature 97.6, pulse 83, respirations 18, blood pressure 166/82, saturation 96% on 2 liters. GENERAL: No acute distress. HEENT: Normocephalic, atraumatic. Slightly pale. Nasal ulcers. CARDIOVASCULAR: S1, S2. LUNGS: Faint rhonchi and wheezing bilaterally. ABDOMEN: Soft, nontender. EXTREMITIES: A +1 to 2 edema especially of the pedal edema and mild in the hands. LABORATORY DATA: White count 7.2, hemoglobin 10.4, hematocrit 33, platelet count of 196, neutrophils 91%, lymphocyte 5%. Chemistry: Sodium 148, potassium 3.6, chloride 114, bicarbonate 26, BUN 48, cr eatinine of 1.98 and glucose 151. Repeat sputum culture showed normal respiratory norma. MEDICATIONS: Include: 1. Peridex b.i.d. 2. Bactroban b.i.d. 3. Topical Colace as directed. 4. Linezolid 600 IV q.12. 5. Solu-Medrol 40 IV q.12. 6. Tylenol. 7. Colace. 8. Culturelle. 9. Valtrex. 10. Zinc sulfate. 11. DuoNeb. 12. Prevacid. 13. Renvela. Most of his meds cannot be given due to n.p.o. status. DIAGNOSTIC DATA: Chest x-ray done today appears to show improvement. It shows findings suggestive o f pulmonary vascular congestion with small bilateral pleural effusion. Lung aeration is improved whe n compared to the prior exam, mild cardiomegaly and aortic atherosclerosis, right upper extremity PIC C line with tip near the cavoatrial junction. ASSESSMENT AND PLAN: This is an 87-year-old [place] male with history of atrial fibrillation, hyper tension, low back pain, who presents with shortness of breath, was found to have multifocal pneumonia , acute respiratory distress syndrome picture, status post prolonged ventilatory support, now extubat ed 3 days ago. 1. Respiratory: Slight wheezing on breathing treatment and steroids. Also on Zyvox empirically for his oral ulcers. 2. Dysphagia. Speech therapy evaluated. Hopefully, speech therapy can coordinate care with family as they can speak the language and can guide the patient how to swallow. 3. Anemia, status post transfusion. Hemoglobin and hematocrit now remain stable. Continue Pepcid I V. 4. Multiple wounds. Wound care consult is following, on Zyvox. 5. Neurologically stable and alert, slightly anxious. Ativan p.r.n. will be provided. 6. Acute renal failure partly due to over diuresis. Now on Zaroxolyn per nephrology, but again meds not be given now on the telemetry unit. Continue to monitor. 7. Anxiolytics and Lasix IV p.r.n. will be provided. We will follow. Dictated By: SERGIO CERVANTES/NTS Conf#: [id number] DID#: [id number] CC: OLIVE ANDREWS MD;*End*
[2018-09-21] MEDS: FAMOTIDINE 20 MG INJ IV SCH (15:41)
--- NOTE | 2018-09-21 18:18 | CONS ---
Consult Date/Type/Reason Admit Date/Time Aug 29, 2018 at 05:45 Initial Consult Date 09/07/18 Type of Consultation: neph Requesting Provider: SERGIO TREVINO MD Date/Time of Note DATE: 09/21/18 TIME: 18:11 Subjective Interventional cardiology follow-up progress note Subjective: Case discussed with the staff and telemetry was reviewed. Patient has CONVERTED TO AFIB but HR is under control Patient is extubated and out of ICU on tele no report of any ches tpain or pressure O General: Elderly gentleman. HEENT: NC/AT. pupils are equal. round. NECK: NO JVD. no stridor. CV: irregularly irregular . systolic murmur; no gallop or rubs. PULM: no wheezing + rhonchi. GI: SOFT, NT, ND, no rebound or guarding Extremity: 1-2+ B/L LE edema. no clubbing. neuro: awake and alert Psych: calm rectal: deferred EKG normal sinus rhythm Chest x-ray on admission showed: 1. Right basilar interstitial opacities, new from the prior examination from a few hours prior, likely reflecting atelectasis. 2. Mild prominence of the interstitial markings, may reflect mild underlying interstitial edema or chronic lung changes. 3. Mild cardiomegaly and aortic atherosclerosis. Chest x-ray done on 09/06/2018 shows: 1. Atherosclerosis of the thoracic aorta. 2. Persistent bilateral pulmonary infiltrates which could represent infection or non infection related edema or combination of the 2. 3. Endotracheal and nasogastric tubes in place. CXR 6.24 1. Findings suggestive of pulmonary vascular congestion with small bilateral pleural effusions. Lung aeration is improved when compared to the prior examination. 2. Mild cardiomegaly and aortic atherosclerosis. 3. Right upper extremity PICC line with tip near the cavoatrial junction. Echocardiogram done on 08/29/2018 which was personally reviewed shows: There is mild to mod enlargement of left atrium. Normal left ventricular systolic function. Normal left ventricular cavity size. Normal left ventricular wall thickness. Ejection fraction is visually estimated at 60-65 %. Normal appearance of the mitral valve. Mild mitral valve regurgitation. Normal appearance of the aortic valve. No aortic regurgitation. Normal appearance of the tricuspid valve. The estimated Peak RVSP is 53 mmHg. There is mild tricuspid regurgitation. The IVC is not well visualized. Objective Vitals Vital Signs Date Temp Pulse Resp B/P (MAP) Pulse Ox O2 O2 Flow FiO2 Time Delivery Rate 09/21/18 87 16:00 09/21/18 97.8 18 135/66 98 15:38 (89) 09/21/18 Nasal 2.0 11:45 Cannula 09/21/18 28 04:40 Intake and Output 09/20/18 09/20/18 09/21/18 1515:00 23:00 07:00 IntakeIntake Total 775 ml 750 ml 350 ml OutputOutput Total 460 ml 455 ml 280 ml BalanceBalance 315 ml 295 ml 70 ml Results/Medications Result Diagram: 09/21/18 0428 09/21/18 0428 Results 24 hrs Laboratory Tests Test 09/21/18 04:28 White Blood Count 7.3 # Red Blood Count 3.40 L Hemoglobin 10.4 L Hematocrit 32.8 L Mean Corpuscular Volume 96.5 Mean Corpuscular Hemoglobin 30.6 Mean Corpuscular Hemoglobin Concent 31.7 L Red Cell Distribution Width 15.3 H Platelet Count 196 Mean Platelet Volume 11.5 H Immature Granulocytes % 0.700 H Neutrophils % 91.1 H Lymphocytes % 4.5 L Monocytes % 3.7 Eosinophils % 0.0 Basophils % 0.0 Nucleated Red Blood Cells % 0.0 Immature Granulocytes # 0.050 H Neutrophils # 6.6 Lymphocytes # 0.3 L Monocytes # 0.3 Eosinophils # 0.0 Basophils # 0.0 Nucleated Red Blood Cells # 0.0 Sodium Level 148 H Potassium Level 3.6 Chloride Level 114 H Carbon Dioxide Level 26 Anion Gap 8 Blood Urea Nitrogen 48 H Creatinine 1.98 H Est Glomerular Filtrat Rate mL/min Glucose Level 151 Calcium Level 8.0 L Phosphorus Level 4.9 Magnesium Level 2.1 Home Meds Reported Medications Losartan Potassium* (Losartan Potassium*) 50 Mg Tablet, 50 MG PO DAILY, TAB 08/29/18 Simvastatin (Simvastatin) 20 Mg Tablet, 20 MG PO QHS for 90 Days, #90 08/29/18 Furosemide* (Furosemide*) 40 Mg Tablet, 40 MG PO DAILY for 90 Days, #90 08/29/18 Potassium Chloride (K-Tab ER) 8 Meq Tablet.er, 8 MEQ PO BID for 90 Days, #180 08/29/18 Escitalopram Oxalate* (Escitalopram Oxalate*) 10 Mg Tablet, 20 MG PO DAILY for 90 Days, #90 08/29/18 Hydrocodone Bit-Acetaminophen (Hydrocodone Bit-APAP) 5-325MG Tablet, 1 TAB PO DAILY 08/29/18 Dexlansoprazole (Dexilant) 60 Mg Tree., 60 MG PO DAILY for 90 Days, #90 08/29/18 Amiodarone Hcl* (Amiodarone Hcl*) 200 Mg Tablet, 200 MG PO DAILY for 90 Days, # 90 08/29/18 Alprazolam* (Alprazolam*) 0.5 Mg Tablet, 0.5 MG PO QHS for 30 Days, #30 08/29/18 Medications Current Medications IV Flush (NS 3 ml) 3 ml PER PROTOCOL IV ; Start 08/29/18 at 06:00 Ondansetron HCl (Zofran Inj) 4 mg Q6H PRN IV NAUSEA/VOMITING Last administered on 08/31/18at 05:02; Admin Dose 4 MG; Start 08/29/18 at 06:00 Lorazepam (Ativan) 0.5 mg Q6H PRN PO ANXIETY; Start 09/02/18 at 13:00 Bisacodyl (Dulcolax Supp) 10 mg DAILY PRN [place] CONSTIPATION; Start 09/03/18 at 12:00 Heparin Sodium (Porcine) (Heparin (5000 Units/1ml)) 5,000 unit BID SC Last administered on 09/21/18at 08:37; Admin Dose 5,000 UNIT; Start 09/03/18 at 14:00 Hydralazine HCl (Apresoline) 10 mg Q3 PRN IV ELEVATED SYSTOLIC BP Last administered on 09/05/18at 19:48; Admin Dose 10 MG; Start 09/03/18 at 18:00 Albuterol/ Ipratropium (Duoneb) 3 ml Q2H RESP THERAPY PRN HHN SHORTNESS OF BREATH Last administered on 09/21/18at 06:45; Admin Dose 3 ML; Start 09/03/18 at 20:00 Propofol 100 ml @ 2.509 mls/ hr Q12H IV Last administered on 09/18/18at 07:46; Admin Dose 12.546 MLS/HR; Start 09/06/18 at 09:30 Fentanyl 100 ml @ 2.5 mls/hr TITRATE IV Last administered on 09/17/18at 11:11; Admin Dose 2.5 MLS/HR; Start 09/07/18 at 09:30; Status Hold Multivitamins (Multivitamin) 30 ml DAILY NGT Last administered on 09/18/18 08:11; Admin Dose 30 ML; Start 09/07/18 at 14:30 Ascorbic Acid (Vitamin C) 500 mg DAILY NGT Last administered on 09/18/18 08:11; Admin Dose 500 MG; Start 09/07/18 at 14:30 Folic Acid (Folic Acid) 1 mg DAILY NGT Last administered on 09/18/18 08:11; Admin Dose 1 MG; Start 09/07/18 at 14:30 Petrolatum (Vaseline) APPLY TO MULTIPLE SC... BID TOP Last administered on 09/21/18 08:31; Admin Dose 1 EA; Start 09/08/18 at 09:00 IV Flush (NS 10 ml) 10 ml PRN PRN IV FLUSH LINE; Start 09/09/18 at 11:30 Triamcinolone Acetonide (Kenalog 0.1% Cr) 1 applic BID TOP Last administered on 09/21/18 08:31; Admin Dose 1 APPLIC; Start 09/12/18 at 14:00 Sevelamer Carbonate (Renvela) 0.8 gm Q8H NGT Last administered on 09/18/18 13:19; Admin Dose 0.8 GM; Start 09/13/18 at 12:30 Lansoprazole (Prevacid) 30 mg BID@0600,1800 NGT Last administered on 09/18/18 05:26; Admin Dose 30 MG; Start 09/15/18 at 18:00 Albuterol/ Ipratropium (Duoneb) 3 ml Q6H RESP THERAPY HHN Last administered on 09/21/18 13:37; Admin Dose 3 ML; Start 09/19/18 at 08:00 Methylprednisolone Sodium Succinate (Solu-Medrol) 30 mg Q12 IV Last administered on 09/21/18 08:30; Admin Dose 30 MG; Start 09/20/18 at 09:00 Acetaminophen (Tylenol Liquid) 650 mg Q6H PRN NGT .PAIN 1-3 OR TEMP; Start 09/20/18 at 09:00 Docusate Sodium (Colace Liquid Cup) 100 mg BID NGT ; Start 09/20/18 at 09:00 Docusate Sodium (Colace Liquid Cup) 100 mg Q12H PRN NGT .CONSTIPATION; Start 09/20/18 at 11:00 Escitalopram Oxalate (Lexapro) 20 mg DAILY NGT ; Start 09/20/18 at 09:00; Status Hold Lactobacillus Acidophilus/ Rhamnosus (Culturelle) 1 cap BID NGT ; Start 09/20/18 at 09:00 Magnesium Hydroxide (Milk Of Mag) 30 ml DAILY PRN NGT .CONSTIPATION; Start 09/20/18 at 09:00 Valacyclovir HCl (Valtrex) 500 mg BID NGT ; Start 09/20/18 at 09:00 Zinc Sulfate (Zinc Sulfate) 220 mg DAILY NGT ; Start 09/20/18 at 09:00 Dextrose 1,000 ml @ 75 mls/hr [id number] IV Last administered on 09/21/18at 06:07; Admin Dose 50 MLS/HR; Start 09/20/18 at 09:30 Linezolid 300 ml @ 300 mls/hr Q12 IVPB Last administered on 09/21/18at 08:30; Admin Dose 300 MLS/HR; Start 09/20/18 at 11:00; Stop 09/24/18 at 10:59 Mupirocin (Bactroban) 1 applic BID TOP Last administered on 09/21/18at 08:31; Admin Dose 1 APPLIC; Start 09/20/18 at 11:30 Chlorhexidine Gluconate (Peridex) 15 ml BID MT Last administered on 09/21/18at 08:30; Admin Dose 15 ML; Start 09/20/18 at 14:00 Famotidine (Pepcid Iv) 20 mg Q24H IV Last administered on 09/21/18at 15:41; Admin Dose 20 MG; Start 09/21/18 at 15:00 Assessment/Plan Hospital Course (Demo Recall) 1. sick sinus with Marked sinus bradycardia: y 2. Acute hypoxemic respiratory failure status post intubation on the vent 3. Pulmonary hypertension 4. History of proximal atrial fibrillation: currently has remained in normal sinus rhythm/sinus bradycardia 5. Hypertension 6. Urinary retention status post surgery 7. Pneumonia possible COPD possible ARDS 8. Acute renal failure 9. P-AFIB 10. CHF/ fluid overload Recommendations: pt has been taken off the amiodarone given his marked bradycardia as well as his significant pulmonary disease. Continue blood pressure control. Respiratory care to be continued. Antibiotic management as per internal medicine consultants We will continue to monitor on telemetry thyroid management as per IM . TSH was normal as of 09/12/18 Antibiotic as per internal medicine pt is NPO. will start rectal asa for now. will consider full anticoagulation if no contra-indications . bleeding is noted Thank you for his referral. We will continue to follow along with you as needed over the weekend . AMANDA DUNBAR MD [facility] AMANDA DUNBAR MD Sep 21, 2018 18:18
[2018-09-21] MEDS: ASPIRIN 300 MG SUPP PR SCH (21:02)
[2018-09-22] VITALS (10 sets, daily range): BP systolic 141–171; BP diastolic 68–79; PULSE 75–99; RESP 20–24
[2018-09-22] MEDS: ALBUTEROL/IPRATROPIUM (NEB) 3 ML AMP HHN SCH ×4 (01:16→19:55)
[2018-09-22] MEDS: SEVELAMER CARBONATE 0.8 GM PKT NGT SCH ×3 (04:30→20:41)
[2018-09-22] MEDS: DEXTROSE 5% 1,000 ML IV SCH ×2 (05:34→09:28)
[2018-09-22] MEDS: LANSOPRAZOLE 30 MG CAP NGT SCH ×2 (05:34→18:18)
--- NOTE | 2018-09-22 08:44 | PN ---
DATE: 09/22/2018 SUBJECTIVE: The patient was transferred from intensive care unit to telemetry. No other acute event s noted overnight. OBJECTIVE: VITAL SIGNS: Blood pressure is 148/69, pulse 74, respirations 20, temperature 97.9. HEENT: Head is normocephalic. NECK: Supple. HEART: Regular rate. LUNGS: Show diminished breath sounds at the base. ABDOMEN: Soft, nontender to palpation. No rebound or guarding. EXTREMITIES: Negative for clubbing, cyanosis. Positive edema. DERMATOLOGIC: No rashes. MUSCULOSKELETAL: No joint effusion. NEUROLOGIC: No change in exam. MEDICATIONS: Reviewed. LABORATORY DATA: Reviewed. IMAGING STUDIES: Reviewed. ASSESSMENT AND PLAN: 1. Nonoliguric acute kidney injury with unknown baseline creatinine. Etiology of acute kidney injur y is secondary to acute tubular necrosis and hemodynamics. Renal function has been improving slowly. Continue current treatment plan, supportive care and renally dose all medications. 2. Volume overload. Etiology is multifactorial secondary to sepsis, heart failure, capillary leak. Continue current diuretic regimen. Monitor electrolytes closely. 3. Hypernatremia, improved. We will deescalate D5 water. Continue to encourage free water intake. 4. Anemia. Continue to monitor hemoglobin and hematocrit levels, transfuse PRBCs as needed. Contin ue proton pump inhibitor. 5. Mineral bone disorder, monitor calcium and phosphorus levels. 6. Respiratory failure, status post extubation. Continue to monitor. 7. Sepsis secondary to pneumonia. The patient is completing antibiotic course. 8. Acute encephalopathy, etiology is toxic metabolic. 9. Benign prostatic hypertrophy. 10. Diastolic heart failure. The patient remains decompensated. Continue diuretic regimen. Monito r electrolytes and renal function closely. Dictated By: ANGELA BALLARD DO NR/NTS Conf#: [id number] DID#: [id number] CC: SERGIO TREVINO MD; OLIVE ANDREWS MD;*[facility]*
[2018-09-22] MEDS: DOCUSATE SODIUM 10 MG/ML (10ML CUP) NGT SCH ×2 (09:00→20:42)
[2018-09-22] MEDS: MULTIVITAMINS 30 ML CUP NGT SCH (09:00)
[2018-09-22] MEDS: ASCORBIC ACID 500 MG TAB NGT SCH (09:00)
[2018-09-22] MEDS: LACTOBACILLUS RHAMNOSUS CAP NGT SCH ×2 (09:00→20:42)
[2018-09-22] MEDS: ZINC SULFATE 220 MG CAP NGT SCH (09:00)
[2018-09-22] MEDS: valACYclovir 500 MG TAB NGT SCH ×2 (09:00→20:42)
[2018-09-22] MEDS: FOLIC ACID 1 MG TAB NGT SCH (09:00)
[2018-09-22] MEDS: CHLORHEXIDINE GLUCONATE 15 ML UD CUP MT SCH ×2 (09:28→20:42)
[2018-09-22] MEDS: METHYLPREDNISOLONE 40 MG INJ IV SCH ×2 (09:28→20:42)
[2018-09-22] MEDS: ASPIRIN 300 MG SUPP PR SCH (09:28)
[2018-09-22] MEDS: FUROSEMIDE 40 MG INJ IV SCH (09:29)
[2018-09-22] MEDS: PETROLATUM 5 GM OINT TOP SCH ×2 (09:31→20:44)
[2018-09-22] MEDS: TRIAMCINOLONE ACET 0.1% 15 GM CR TOP SCH ×2 (09:32→20:43)
[2018-09-22] MEDS: MUPIROCIN 2% 22 GM OINT TOP SCH ×2 (09:32→20:43)
[2018-09-22] MEDS: BALSAM PERU/CASTOR OIL 60 GM TUBE TOP SCH ×2 (09:32→20:44)
[2018-09-22] MEDS: HEPARIN 5,000 UNIT/1 ML VIAL SC SCH ×2 (09:34→20:48)
[2018-09-22] MEDS: LINEZOLID 600 MG/300 ML (PMX) 300 ML IVPB SCH ×2 (09:41→20:42)
[2018-09-22] MEDS: POTASSIUM CHLORIDE 100 ML IVPB SCH ×2 (10:41→12:18)
[2018-09-22] MEDS: FAMOTIDINE 20 MG INJ IV SCH (12:18)
--- NOTE | 2018-09-22 12:58 | CONS ---
Assessment/Plan Assessment/Plan Hospital Course (Demo Recall) 87 yo male 1. Anemia with dark color stool and positive stool guaiac, most probably related to GI bleeding. -s/p EGD and colonoscopy -HH stable. 2. Renal insufficiency, which is stable. 3. Respiratory failure from the pneumonia 4. COPD 5. Critical care myopathy. 6. Status post surgery for the prostate and suprapubic catheter. 7. Multiple wounds. 8. The patient's 2D echocardiogram shows a 65% ejection fraction. 9. Acute gastritis 10. Polyp removed in descending colon during colonoscopy 11. Dysphagia -Speech therapy does not recommend PO feeding. Plan Continue present care Pt examined and plan of care d/w Dr Rosales Consultation Date/Type/Reason Admit Date/Time Aug 29, 2018 at 05:45 Initial Consult Date 09/07/18 Requesting Provider: SERGIO TREVINO MD Date/Time of Note DATE: 09/22/18 TIME: 12:55 24 HR Interval Summary Free Text/Dictation Alert. No acute changes or complaints. Order for pureed diet. Exam/Review of Systems Exam Vitals Vital Signs Date Temp Pulse Resp B/P (MAP) Pulse Ox O2 O2 Flow FiO2 Time Delivery Rate 09/22/18 87 12:21 09/22/18 98.8 24 141/68 95 Nasal 11:40 (92) Cannula 09/22/18 21 08:05 09/22/18 2.0 04:00 Intake and Output 09/21/18 09/21/18 09/22/18 1515:00 23:00 07:00 IntakeIntake Total 400 ml 300 ml OutputOutput Total 400 ml 1100 ml 400 ml BalanceBalance 0 ml -1100 ml -100 ml Constitutional: alert Psych: no complaints Head: normocephalic Eyes: nl sclera, PERRL Respiratory: normal air movement Gastrointestinal: soft, non-tender Neurological: nl mental status Results Result Diagram: 09/22/18 0500 09/22/18 0445 Results 24hrs Laboratory Tests Test 09/22/18 04:45 09/22/18 05:00 Sodium Level 143 Potassium Level 3.5 Chloride Level 112 H Carbon Dioxide Level 27 Anion Gap 4 L Blood Urea Nitrogen 45 H Creatinine 1.87 H Est Glomerular Filtrat Rate mL/min Glucose Level 150 Calcium Level 7.5 L Phosphorus Level 4.5 Magnesium Level 2.0 B-Type Natriuretic Peptide 68116 H White Blood Count 5.4 # Red Blood Count 3.31 L Hemoglobin 10.2 L Hematocrit 31.9 L Mean Corpuscular Volume 96.4 Mean Corpuscular Hemoglobin 30.8 Mean Corpuscular Hemoglobin Concent 32.0 Red Cell Distribution Width 14.9 H Platelet Count 196 Mean Platelet Volume 11.4 H Immature Granulocytes % 0.700 H Neutrophils % Segmented Neutrophils % (Manual) 83 H Band Neutrophils % (Manual) 5 H Lymphocytes % Lymphocytes % (Manual) 8 L Monocytes % Monocytes % (Manual) 3 Eosinophils % Eosinophils % (Manual) 1 Basophils % Nucleated Red Blood Cells % 0.0 Immature Granulocytes # 0.040 H Neutrophils # Neutrophils # (Manual) 4.5 Band Neutrophils # 0.2 Lymphocytes (Manual) 0.4 L Lymphocytes # Monocytes # Monocytes # (Manual) 0.1 L Eosinophils # Basophils # Nucleated Red Blood Cells # Platelet Estimate NORMAL Anisocytosis 1+ Medications Medication Current Medications IV Flush (NS 3 ml) 3 ml PER PROTOCOL IV ; Start 08/29/18 at 06:00 Ondansetron HCl (Zofran Inj) 4 mg Q6H PRN IV NAUSEA/VOMITING Last administered on 08/31/18at 05:02; Admin Dose 4 MG; Start 08/29/18 at 06:00 Lorazepam (Ativan) 0.5 mg Q6H PRN PO ANXIETY; Start 09/02/18 at 13:00 Bisacodyl (Dulcolax Supp) 10 mg DAILY PRN [place] CONSTIPATION; Start 09/03/18 at 12:00 Heparin Sodium (Porcine) (Heparin (5000 Units/1ml)) 5,000 unit BID SC Last administered on 09/22/18at 09:34; Admin Dose 5,000 UNIT; Start 09/03/18 at 14:00 Hydralazine HCl (Apresoline) 10 mg Q3 PRN IV ELEVATED SYSTOLIC BP Last administered on 09/05/18at 19:48; Admin Dose 10 MG; Start 09/03/18 at 18:00 Albuterol/ Ipratropium (Duoneb) 3 ml Q2H RESP THERAPY PRN HHN SHORTNESS OF BREATH Last administered on 09/21/18at 06:45; Admin Dose 3 ML; Start 09/03/18 at 20:00 Fentanyl 100 ml @ 2.5 mls/hr TITRATE IV Last administered on 09/17/18 11:11; Admin Dose 2.5 MLS/HR; Start 09/07/18 at 09:30; Status Hold Multivitamins (Multivitamin) 30 ml DAILY NGT Last administered on 09/18/18 08:11; Admin Dose 30 ML; Start 09/07/18 at 14:30 Ascorbic Acid (Vitamin C) 500 mg DAILY NGT Last administered on 09/18/18 08:11; Admin Dose 500 MG; Start 09/07/18 at 14:30 Folic Acid (Folic Acid) 1 mg DAILY NGT Last administered on 09/18/18 08:11; Admin Dose 1 MG; Start 09/07/18 at 14:30 Petrolatum (Vaseline) APPLY TO MULTIPLE SC... BID TOP Last administered on 09/22/18 09:31; Admin Dose 1 APPLIC; Start 09/08/18 at 09:00 IV Flush (NS 10 ml) 10 ml PRN PRN IV FLUSH LINE; Start 09/09/18 at 11:30 Triamcinolone Acetonide (Kenalog 0.1% Cr) 1 applic BID TOP Last administered on 09/22/18 09:32; Admin Dose 1 APPLIC; Start 09/12/18 at 14:00 Sevelamer Carbonate (Renvela) 0.8 gm Q8H NGT Last administered on 09/18/18 13:19; Admin Dose 0.8 GM; Start 09/13/18 at 12:30 Lansoprazole (Prevacid) 30 mg BID@0600,1800 NGT Last administered on 09/18/18 05:26; Admin Dose 30 MG; Start 09/15/18 at 18:00 Albuterol/ Ipratropium (Duoneb) 3 ml Q6H RESP THERAPY HHN Last administered on 09/22/18 07:56; Admin Dose 3 ML; Start 09/19/18 at 08:00 Methylprednisolone Sodium Succinate (Solu-Medrol) 30 mg Q12 IV Last administered on 09/22/18 09:28; Admin Dose 30 MG; Start 09/20/18 at 09:00 Acetaminophen (Tylenol Liquid) 650 mg Q6H PRN NGT .PAIN 1-3 OR TEMP; Start 09/20/18 at 09:00 Docusate Sodium (Colace Liquid Cup) 100 mg BID NGT ; Start 09/20/18 at 09:00 Docusate Sodium (Colace Liquid Cup) 100 mg Q12H PRN NGT .CONSTIPATION; Start 09/20/18 at 11:00 Escitalopram Oxalate (Lexapro) 20 mg DAILY NGT ; Start 09/20/18 at 09:00; Status Hold Lactobacillus Acidophilus/ Rhamnosus (Culturelle) 1 cap BID NGT ; Start 09/20/18 at 09:00 Magnesium Hydroxide (Milk Of Mag) 30 ml DAILY PRN NGT .CONSTIPATION; Start 08/30 06/16 at 09:00 Valacyclovir HCl (Valtrex) 500 mg BID NGT ; Start 09/20/18 at 09:00 Zinc Sulfate (Zinc Sulfate) 220 mg DAILY NGT ; Start 09/20/18 at 09:00 Dextrose 1,000 ml @ 40 mls/hr Q24H IV Last administered on 09/22/18 05:34; Admin Dose 75 MLS/HR; Start 09/20/18 at 09:30 Linezolid 300 ml @ 300 mls/hr Q12 IVPB Last administered on 09/22/18 09:41; Admin Dose 300 MLS/HR; Start 09/20/18 at 11:00; Stop 09/24/18 at 10:59 Mupirocin (Bactroban) 1 applic BID TOP Last administered on 09/22/18 09:32; Admin Dose 1 APPLIC; Start 09/20/18 at 11:30 Chlorhexidine Gluconate (Peridex) 15 ml BID MT Last administered on 09/22/18 09:28; Admin Dose 15 ML; Start 09/20/18 at 14:00 Famotidine (Pepcid Iv) 20 mg Q24H IV Last administered on 09/22/18 12:18; Admin Dose 20 MG; Start 09/21/18 at 15:00 Aspirin (Aspirin) 300 mg DAILY [place] Last administered on 09/22/18 09:28; Admin Dose 300 MG; Start 09/21/18 at 20:00 Furosemide (Lasix) 40 mg DAILY IV Last administered on 09/22/18 09:29; Admin Dose 40 MG; Start 09/22/18 at 09:00 ALEX FLYNN Sep 22, 2018 12:58
--- NOTE | 2018-09-22 13:30 | CONS ---
Assessment/Plan Assessment/Plan Hospital Course (Demo Recall) 1. Marked sinus bradycardia: NOW back to AFIB with controlled HR 2. Acute hypoxemic respiratory failure status post intubation on the vent 3. Pulmonary hypertension 4. History of proximal atrial fibrillation 5. Hypertension 6. Urinary retention status post surgery 7. Pneumonia possible COPD possible ARDS 8. Acute renal failure Recommendations: OFF the amiodarone due to his marked bradycardia as well as his significant pulmonary disease. Continue blood pressure control. Respiratory care to be continued. Antibiotic management as per internal medicine consultants We will continue to monitor on telemetry ASA for now rectally since he is NPO Thank you for his referral. We will continue to follow along with you AMANDA DUNBAR MD [facility] Consultation Date/Type/Reason Admit Date/Time Aug 29, 2018 at 05:45 Type of Consult Cardiology Date/Time of Note DATE: 09/22/18 TIME: 13:27 Hx of Present Illness Interventional cardiology follow-up progress note Subjective: Case discussed with the staff and telemetry was reviewed. Patient has remained in AFIB but HR is under control Patient is extubated and out of ICU on tele no report of any chest pain or pressure O General: Elderly gentleman. HEENT: NC/AT. pupils are equal. round. NECK: NO JVD. no stridor. CV: irregularly irregular . systolic murmur; no gallop or rubs. PULM: no wheezing + rhonchi. GI: SOFT, NT, ND, no rebound or guarding Extremity: 1-2+ B/L LE edema. no clubbing. neuro: awake and alert Psych: calm rectal: deferred EKG normal sinus rhythm Chest x-ray on admission showed: 1. Right basilar interstitial opacities, new from the prior examination from a few hours prior, likely reflecting atelectasis. 2. Mild prominence of the interstitial markings, may reflect mild underlying interstitial edema or chronic lung changes. 3. Mild cardiomegaly and aortic atherosclerosis. Chest x-ray done on 09/06/2018 shows: 1. Atherosclerosis of the thoracic aorta. 2. Persistent bilateral pulmonary infiltrates which could represent infection or non infection related edema or combination of the 2. 3. Endotracheal and nasogastric tubes in place. CXR 6.24 1. Findings suggestive of pulmonary vascular congestion with small bilateral pleural effusions. Lung aeration is improved when compared to the prior examination. 2. Mild cardiomegaly and aortic atherosclerosis. 3. Right upper extremity PICC line with tip near the cavoatrial junction. Echocardiogram done on 08/29/2018 which was personally reviewed shows: There is mild to mod enlargement of left atrium. Normal left ventricular systolic function. Normal left ventricular cavity size. Normal left ventricular wall thickness. Ejection fraction is visually estimated at 60-65 %. Normal appearance of the mitral valve. Mild mitral valve regurgitation. Normal appearance of the aortic valve. No aortic regurgitation. Normal appearance of the tricuspid valve. The estimated Peak RVSP is 53 mmHg. There is mild tricuspid regurgitation. The IVC is not well visualized. Past Medical History Home Meds Reported Medications Losartan Potassium* (Losartan Potassium*) 50 Mg Tablet, 50 MG PO DAILY, TAB 08/29/18 Simvastatin (Simvastatin) 20 Mg Tablet, 20 MG PO QHS for 90 Days, #90 08/29/18 Furosemide* (Furosemide*) 40 Mg Tablet, 40 MG PO DAILY for 90 Days, #90 08/29/18 Potassium Chloride (K-Tab ER) 8 Meq Tablet.er, 8 MEQ PO BID for 90 Days, #180 08/29/18 Escitalopram Oxalate* (Escitalopram Oxalate*) 10 Mg Tablet, 20 MG PO DAILY for 90 Days, #90 08/29/18 Hydrocodone Bit-Acetaminophen (Hydrocodone Bit-APAP) 5-325MG Tablet, 1 TAB PO DAILY 08/29/18 Dexlansoprazole (Dexilant) 60 Mg Cap., 60 MG PO DAILY for 90 Days, #90 08/29/18 Amiodarone Hcl* (Amiodarone Hcl*) 200 Mg Tablet, 200 MG PO DAILY for 90 Days, #90 08/29/18 Alprazolam* (Alprazolam*) 0.5 Mg Tablet, 0.5 MG PO QHS for 30 Days, #30 08/29/18 Medications Current Medications IV Flush (NS 3 ml) 3 ml PER PROTOCOL IV ; Start 08/29/18 at 06:00 Ondansetron HCl (Zofran Inj) 4 mg Q6H PRN IV NAUSEA/VOMITING Last administered on 08/31/18at 05:02; Admin Dose 4 MG; Start 08/29/18 at 06:00 Lorazepam (Ativan) 0.5 mg Q6H PRN PO ANXIETY; Start 09/02/18 at 13:00 Bisacodyl (Dulcolax Supp) 10 mg DAILY PRN AL CONSTIPATION; Start 09/03/18 at 12:00 Heparin Sodium (Porcine) (Heparin (5000 Units/1ml)) 5,000 unit BID SC Last administered on 09/22/18 09:34; Admin Dose 5,000 UNIT; Start 09/03/18 at 14:00 Hydralazine HCl (Apresoline) 10 mg Q3 PRN IV ELEVATED SYSTOLIC BP Last administered on 09/05/18 19:48; Admin Dose 10 MG; Start 09/03/18 at 18:00 Albuterol/ Ipratropium (Duoneb) 3 ml Q2H RESP THERAPY PRN HHN SHORTNESS OF BREATH Last administered on 09/21/18 06:45; Admin Dose 3 ML; Start 09/03/18 at 20:00 Fentanyl 100 ml @ 2.5 mls/hr TITRATE IV Last administered on 09/17/18 11:11; Admin Dose 2.5 MLS/HR; Start 09/07/18 at 09:30; Status Hold Multivitamins (Multivitamin) 30 ml DAILY NGT Last administered on 09/18/18 08:11; Admin Dose 30 ML; Start 09/07/18 at 14:30 Ascorbic Acid (Vitamin C) 500 mg DAILY NGT Last administered on 09/18/18 08:11; Admin Dose 500 MG; Start 09/07/18 at 14:30 Folic Acid (Folic Acid) 1 mg DAILY NGT Last administered on 09/18/18 08:11; Admin Dose 1 MG; Start 09/07/18 at 14:30 Petrolatum (Vaseline) APPLY TO MULTIPLE SC... BID TOP Last administered on 09/22/18 09:31; Admin Dose 1 APPLIC; Start 09/08/18 at 09:00 IV Flush (NS 10 ml) 10 ml PRN PRN IV FLUSH LINE; Start 09/09/18 at 11:30 Triamcinolone Acetonide (Kenalog 0.1% Cr) 1 applic BID TOP Last administered on 09/22/18 09:32; Admin Dose 1 APPLIC; Start 09/12/18 at 14:00 Sevelamer Carbonate (Renvela) 0.8 gm Q8H NGT Last administered on 6/21/19at 13:19; Admin Dose 0.8 GM; Start 09/13/18 at 12:30 Lansoprazole (Prevacid) 30 mg BID@0600,1800 NGT Last administered on 09/18/18at 05:26; Admin Dose 30 MG; Start 09/15/18 at 18:00 Albuterol/ Ipratropium (Duoneb) 3 ml Q6H RESP THERAPY HHN Last administered on 09/22/18at 07:56; Admin Dose 3 ML; Start 09/19/18 at 08:00 Methylprednisolone Sodium Succinate (Solu-Medrol) 30 mg Q12 IV Last admini stered on 09/22/18 09:28; Admin Dose 30 MG; Start 09/20/18 at 09:00 Acetaminophen (Tylenol Liquid) 650 mg Q6H PRN NGT .PAIN 1-3 OR TEMP; Start 09/20/18 at 09:00 Docusate Sodium (Colace Liquid Cup) 100 mg BID NGT ; Start 09/20/18 at 09:00 Docusate Sodium (Colace Liquid Cup) 100 mg Q12H PRN NGT .CONSTIPATION; Start 09/20/18 at 11:00 Escitalopram Oxalate (Lexapro) 20 mg DAILY NGT ; Start 09/20/18 at 09:00; Status Hold Lactobacillus Acidophilus/ Rhamnosus (Culturelle) 1 cap BID NGT ; Start 09/20/18 at 09:00 Magnesium Hydroxide (Milk Of Mag) 30 ml DAILY PRN NGT .CONSTIPATION; Start 09/20/18 at 09:00 Valacyclovir HCl (Valtrex) 500 mg BID NGT ; Start 09/20/18 at 09:00 Zinc Sulfate (Zinc Sulfate) 220 mg DAILY NGT ; Start 09/20/18 at 09:00 Dextrose 1,000 ml @ 40 mls/hr Q24H IV Last administered on 09/22/18at 05:34; Admin Dose 75 MLS/HR; Start 09/20/18 at 09:30 Linezolid 300 ml @ 300 mls/hr Q12 IVPB Last administered on 09/22/18 09:41; Admin Dose 300 MLS/HR; Start 09/20/18 at 11:00; Stop 09/24/18 at 10:59 Mupirocin (Bactroban) 1 applic BID TOP Last administered on 09/22/18 09:32; Ad min Dose 1 APPLIC; Start 09/20/18 at 11:30 Chlorhexidine Gluconate (Peridex) 15 ml BID MT Last administered on 09/22/18 09:28; Admin Dose 15 ML; Start 09/20/18 at 14:00 Famotidine (Pepcid Iv) 20 mg Q24H IV Last administered on 09/22/18 12:18; Admin Dose 20 MG; Start 09/21/18 at 15:00 Aspirin (Aspirin) 300 mg DAILY AL Last administered on 09/22/18 09:28; Admin Dose 300 MG; Start 09/21/18 at 20:00 Furosemide (Lasix) 40 mg DAILY IV Last administered on 09/22/18 09:29; Admin Dose 40 MG; Start 09/22/18 at 09:00 Allergies: Coded Allergies: No Known Allergy (Unverified , 09/14/18) Social History Alcohol Use: none Smoking Status: Former smoker Drug Use: none Exam/Review of Systems Vital Signs Vitals Vital Signs Date Temp Pulse Resp B/P (MAP) Pulse Ox O2 O2 Flow FiO2 Time Delivery Rate 09/22/18 87 12:21 09/22/18 98.8 24 141/68 95 Nasal 11:40 (92) Cannula 09/22/18 21 08:05 09/22/18 2.0 04:00 Intake and Output 09/21/18 09/21/18 09/22/18 1515:00 23:00 07:00 IntakeIntake Total 400 ml 300 ml OutputOutput Total 400 ml 1100 ml 400 ml BalanceBalance 0 ml -1100 ml -100 ml Labs Result Diagram: 09/22/18 0500 09/22/18 0445 Results 24hrs Laboratory Tests Test 09/22/18 04:45 09/22/18 05:00 Sodium Level 143 Potassium Level 3.5 Chloride Level 112 H Carbon Dioxide Level 27 Anion Gap 4 L Blood Urea Nitrogen 45 H Creatinine 1.87 H Est Glomerular Filtrat Rate mL/min Glucose Level 150 Calcium Level 7.5 L Phosphorus Level 4.5 Magnesium Level 2.0 B-Type Natriuretic Peptide 50783 H White Blood Count 5.4 # Red Blood Count 3.31 L Hemoglobin 10.2 L Hematocrit 31.9 L Mean Corpuscular Volume 96.4 Mean Corpuscular Hemoglobin 30.8 Mean Corpuscular Hemoglobin Concent 32.0 Red Cell Distribution Width 14.9 H Platelet Count 196 Mean Platelet Volume 11.4 H Immature Granulocytes % 0.700 H Neutrophils % Segmented Neutrophils % (Manual) 83 H Band Neutrophils % (Manual) 5 H Lymphocytes % Lymphocytes % (Manual) 8 L Monocytes % Monocytes % (Manual) 3 Eosinophils % Eosinophils % (Manual) 1 Basophils % Nucleated Red Blood Cells % 0.0 Immature Granulocytes # 0.040 H Neutrophils # Neutrophils # (Manual) 4.5 Band Neutrophils # 0.2 Lymphocytes (Manual) 0.4 L Lymphocytes # Monocytes # Monocytes # (Manual) 0.1 L Eosinophils # Basophils # Nucleated Red Blood Cells # Platelet Estimate NORMAL Anisocytosis 1+ Medications Medications Current Medications IV Flush (NS 3 ml) 3 ml PER PROTOCOL IV ; Start 08/29/18 at 06:00 Ondansetron HCl (Zofran Inj) 4 mg Q6H PRN IV NAUSEA/VOMITING Last administered on 08/31/18at 05:02; Admin Dose 4 MG; Start 08/29/18 at 06:00 Lorazepam (Ativan) 0.5 mg Q6H PRN PO ANXIETY; Start 09/02/18 at 13:00 Bisacodyl (Dulcolax Supp) 10 mg DAILY PRN AL CONSTIPATION; Start 09/03/18 at 12:00 Heparin Sodium (Porcine) (Heparin (5000 Units/1ml)) 5,000 unit BID SC Last administered on 09/22/18at 09:34; Admin Dose 5,000 UNIT; Start 09/03/18 at 14:00 Hydralazine HCl (Apresoline) 10 mg Q3 PRN IV ELEVATED SYSTOLIC BP Last administered on 09/05/18at 19:48; Admin Dose 10 MG; Start 09/03/18 at 18:00 Albuterol/ Ipratropium (Duoneb) 3 ml Q2H RESP THERAPY PRN HHN SHORTNESS OF BREATH Last administered on 09/21/18at 06:45; Admin Dose 3 ML; Start 09/03/18 at 20:00 Fentanyl 100 ml @ 2.5 mls/hr TITRATE IV Last administered on 09/17/18at 11:11; Admin Dose 2.5 MLS/HR; Start 09/07/18 at 09:30; Status Hold Multivitamins (Multivitamin) 30 ml DAILY NGT Last administered on 09/18/18 08:11; Admin Dose 30 ML; Start 09/07/18 at 14:30 Ascorbic Acid (Vitamin C) 500 mg DAILY NGT Last administered on 09/18/18 08:11; Admin Dose 500 MG; Start 09/07/18 at 14:30 Folic Acid (Folic Acid) 1 mg DAILY NGT Last administered on 09/18/18 08:11; Admin Dose 1 MG; Start 09/07/18 at 14:30 Petrolatum (Vaseline) APPLY TO MULTIPLE SC... BID TOP Last administered on 09/22/18 09:31; Admin Dose 1 APPLIC; Start 09/08/18 at 09:00 IV Flush (NS 10 ml) 10 ml PRN PRN IV FLUSH LINE; Start 09/09/18 at 11:30 Triamcinolone Acetonide (Kenalog 0.1% Cr) 1 applic BID TOP Last administered on 09/22/18 09:32; Admin Dose 1 APPLIC; Start 09/12/18 at 14:00 Sevelamer Carbonate (Renvela) 0.8 gm Q8H NGT Last administered on 09/18/18 13:19; Admin Dose 0.8 GM; Start 09/13/18 at 12:30 Lansoprazole (Prevacid) 30 mg BID@0600,1800 NGT Last administered on 09/18/18 05:26; Admin Dose 30 MG; Start 09/15/18 at 18:00 Albuterol/ Ipratropium (Duoneb) 3 ml Q6H RESP THERAPY HHN Last administered on 09/22/18 07:56; Admin Dose 3 ML; Start 09/19/18 at 08:00 Methylprednisolone Sodium Succinate (Solu-Medrol) 30 mg Q12 IV Last administered on 09/22/18 09:28; Admin Dose 30 MG; Start 09/20/18 at 09:00 Acetaminophen (Tylenol Liquid) 650 mg Q6H PRN NGT .PAIN 1-3 OR TEMP; Start 09/20/18 at 09:00 Docusate Sodium (Colace Liquid Cup) 100 mg BID NGT ; Start 09/20/18 at 09:00 Docusate Sodium (Colace Liquid Cup) 100 mg Q12H PRN NGT .CONSTIPATION; Start 09/20/18 at 11:00 Escitalopram Oxalate (Lexapro) 20 mg DAILY NGT ; Start 09/20/18 at 09:00; Status Hold Lactobacillus Acidophilus/ Rhamnosus (Culturelle) 1 cap BID NGT ; Start 09/20/18 at 09:00 Magnesium Hydroxide (Milk Of Mag) 30 ml DAILY PRN NGT .CONSTIPATION; Start 09/20/18 at 09:00 Valacyclovir HCl (Valtrex) 500 mg BID NGT ; Start 09/20/18 at 09:00 Zinc Sulfate (Zinc Sulfate) 220 mg DAILY NGT ; Start 09/20/18 at 09:00 Dextrose 1,000 ml @ 40 mls/hr Q24H IV Last administered on 09/22/18 05:34; Admin Dose 75 MLS/HR; Start 09/20/18 at 09:30 Linezolid 300 ml @ 300 mls/hr Q12 IVPB Last administered on 09/22/18 09:41; Admin Dose 300 MLS/HR; Start 09/20/18 at 11:00; Stop 09/24/18 at 10:59 Mupirocin (Bactroban) 1 applic BID TOP Last administered on 09/22/18 09:32; Admin Dose 1 APPLIC; Start 09/20/18 at 11:30 Chlorhexidine Gluconate (Peridex) 15 ml BID MT Last administered on 09/22/18 09:28; Admin Dose 15 ML; Start 09/20/18 at 14:00 Famotidine (Pepcid Iv) 20 mg Q24H IV Last administered on 09/22/18 12:18; Admin Dose 20 MG; Start 09/21/18 at 15:00 Aspirin (Aspirin) 300 mg DAILY AL Last administered on 09/22/18 09:28; Admin Dose 300 MG; Start 09/21/18 at 20:00 Furosemide (Lasix) 40 mg DAILY IV Last administered on 09/22/18 09:29; Admin Dose 40 MG; Start 09/22/18 at 09:00 AMANDA DUNBAR MD Sep 22, 2018 13:30
--- NOTE | 2018-09-22 14:20 | CONS ---
Assessment/Plan Assessment/Plan Hospital Course (Demo Recall) Patient is alert feels good looks comfortable no fevers overnight BUN 45 creatinine 1.87 WBC 5.4 platelets 196 Antimicrobials: Zyvox Valtrex Indwelling's: Mcgowan catheter, PICC Physical examination: Well-developed well-nourished elderly man who is awake in no distress. Head atraumatic normocephalic sclera nonicteric vehicle mucosa dry neck is supple chest rise symmetrical breath sounds with bilateral rhonchi. Heart: S1-S2. Abdomen soft bowel sounds present. Assessment: 1. Acute hypoxemic respiratory failure status post extubated 2. Status post pneumonia 3. CHF 4. Bradycardia 5. Acute kidney injury 6. Diarrhea 7. S/p leukocytosis 8. Mouth lesions, on empiric Valtrex and short course of Zyvox 9. Staph bacteremia cw contaminant Plan: Doing better, continue present care, continue anti-aspiration measures, antibiotics for couple more days Consultation Date/Type/Reason Admit Date/Time Aug 29, 2018 at 05:45 Initial Consult Date 08/30/18 Type of Consult id Requesting Provider: SERGIO TREVINO MD Date/Time of Note DATE: 09/22/18 TIME: 14:19 Exam/Review of Systems Exam Vitals Vital Signs Date Temp Pulse Resp B/P (MAP) Pulse Ox O2 O2 Flow FiO2 Time Delivery Rate 09/22/18 76 20 98 Nasal 2.0 14:04 Cannula 09/22/18 98.8 141/68 11:40 (92) 09/22/18 21 08:05 Intake and Output 09/21/18 09/21/18 09/22/18 1414:59 22:59 06:59 IntakeIntake Total 400 ml 300 ml OutputOutput Total 430 ml 1100 ml 400 ml BalanceBalance -30 ml -1100 ml -100 ml Results Result Diagram: 09/22/18 0500 09/22/18 0445 Results 24hrs Laboratory Tests Test 09/22/18 04:45 09/22/18 05:00 Sodium Level 143 Potassium Level 3.5 Chloride Level 112 H Carbon Dioxide Level 27 Anion Gap 4 L Blood Urea Nitrogen 45 H Creatinine 1.87 H Est Glomerular Filtrat Rate mL/min Glucose Level 150 Calcium Level 7.5 L Phosphorus Level 4.5 Magnesium Level 2.0 B-Type Natriuretic Peptide 08904 H White Blood Count 5.4 # Red Blood Count 3.31 L Hemoglobin 10.2 L Hematocrit 31.9 L Mean Corpuscular Volume 96.4 Mean Corpuscular Hemoglobin 30.8 Mean Corpuscular Hemoglobin Concent 32.0 Red Cell Distribution Width 14.9 H Platelet Count 196 Mean Platelet Volume 11.4 H Immature Granulocytes % 0.700 H Neutrophils % Segmented Neutrophils % (Manual) 83 H Band Neutrophils % (Manual) 5 H Lymphocytes % Lymphocytes % (Manual) 8 L Monocytes % Monocytes % (Manual) 3 Eosinophils % Eosinophils % (Manual) 1 Basophils % Nucleated Red Blood Cells % 0.0 Immature Granulocytes # 0.040 H Neutrophils # Neutrophils # (Manual) 4.5 Band Neutrophils # 0.2 Lymphocytes (Manual) 0.4 L Lymphocytes # Monocytes # Monocytes # (Manual) 0.1 L Eosinophils # Basophils # Nucleated Red Blood Cells # Platelet Estimate NORMAL Anisocytosis 1+ Medications Medication Current Medications IV Flush (NS 3 ml) 3 ml PER PROTOCOL IV ; Start 08/29/18 at 06:00 Ondansetron HCl (Zofran Inj) 4 mg Q6H PRN IV NAUSEA/VOMITING Last administered on 08/31/18 05:02; Admin Dose 4 MG; Start 08/29/18 at 06:00 Lorazepam (Ativan) 0.5 mg Q6H PRN PO ANXIETY; Start 09/02/18 at 13:00 Bisacodyl (Dulcolax Supp) 10 mg DAILY PRN HI CONSTIPATION; Start 09/03/18 at 12:00 Heparin Sodium (Porcine) (Heparin (5000 Units/1ml)) 5,000 unit BID SC Last administered on 09/22/18 09:34; Admin Dose 5,000 UNIT; Start 09/03/18 at 14:00 Hydralazine HCl (Apresoline) 10 mg Q3 PRN IV ELEVATED SYSTOLIC BP Last admi nistered on 09/05/18 19:48; Admin Dose 10 MG; Start 09/03/18 at 18:00 Albuterol/ Ipratropium (Duoneb) 3 ml Q2H RESP THERAPY PRN HHN SHORTNESS OF BREATH Last administered on 09/21/18 06:45; Admin Dose 3 ML; Start 09/03/18 at 20:00 Fentanyl 100 ml @ 2.5 mls/hr TITRATE IV Last administered on 6/20/19at 11:11; Admin Dose 2.5 MLS/HR; Start 09/07/18 at 09:30; Status Hold Multivitamins (Multivitamin) 30 ml DAILY NGT Last administered on 09/18/18 08:11; Admin Dose 30 ML; Start 09/07/18 at 14:30 Ascorbic Acid (Vitamin C) 500 mg DAILY NGT Last administered on 09/18/18 08:11; Admin Dose 500 MG; Start 09/07/18 at 14:30 Folic Acid (Folic Acid) 1 mg DAILY NGT Last administered on 09/18/18 08:11; Admin Dose 1 MG; Start 09/07/18 at 14:30 Petrolatum (Vaseline) APPLY TO MULTIPLE SC... BID TOP Last administered on 09/22/18 09:31; Admin Dose 1 APPLIC; Start 09/08/18 at 09:00 IV Flush (NS 10 ml) 10 ml PRN PRN IV FLUSH LINE; Start 09/09/18 at 11:30 Triamcinolone Acetonide (Kenalog 0.1% Cr) 1 applic BID TOP Last administered on 09/22/18 09:32; Admin Dose 1 APPLIC; Start 09/12/18 at 14:00 Sevelamer Carbonate (Renvela) 0.8 gm Q8H NGT Last administered on 09/18/18 13:19; Admin Dose 0.8 GM; Start 09/13/18 at 12:30 Lansoprazole (Prevacid) 30 mg BID@0600,1800 NGT Last administered on 09/18/18 05:26; Admin Dose 30 MG; Start 09/15/18 at 18:00 Albuterol/ Ipratropium (Duoneb) 3 ml Q6H RESP THERAPY HHN Last administered on 09/22/18 13:54; Admin Dose 3 ML; Start 09/19/18 at 08:00 Methylprednisolone Sodium Succinate (Solu-Medrol) 30 mg Q12 IV Last administered on 09/22/18 09:28; Admin Dose 30 MG; Start 09/20/18 at 09:00 Acetaminophen (Tylenol Liquid) 650 mg Q6H PRN NGT .PAIN 1-3 OR TEMP; Start 09/20/18 at 09:00 Docusate Sodium (Colace Liquid Cup) 100 mg BID NGT ; Start 09/20/18 at 09:00 Docusate Sodium (Colace Liquid Cup) 100 mg Q12H PRN NGT .CONSTIPATION; Start 09/20/18 at 11:00 Escitalopram Oxalate (Lexapro) 20 mg DAILY NGT ; Start 09/20/18 at 09:00; Status Hold Lactobacillus Acidophilus/ Rhamnosus (Culturelle) 1 cap BID NGT ; Start 09/20/18 at 09:00 Magnesium Hydroxide (Milk Of Mag) 30 ml DAILY PRN NGT .CONSTIPATION; Start 09/20/18 at 09:00 Valacyclovir HCl (Valtrex) 500 mg BID NGT ; Start 09/20/18 at 09:00 Zinc Sulfate (Zinc Sulfate) 220 mg DAILY NGT ; Start 09/20/18 at 09:00 Dextrose 1,000 ml @ 40 mls/hr Q24H IV Last administered on 09/22/18 05:34; Admin Dose 75 MLS/HR; Start 09/20/18 at 09:30 Linezolid 300 ml @ 300 mls/hr Q12 IVPB Last administered on 09/22/18 09:41; Admin Dose 300 MLS/HR; Start 09/20/18 at 11:00; Stop 09/24/18 at 10:59 Mupirocin (Bactroban) 1 applic BID TOP Last administered on 09/22/18 09:32; Admin Dose 1 APPLIC; Start 09/20/18 at 11:30 Chlorhexidine Gluconate (Peridex) 15 ml BID MT Last administered on 09/22/18 09:28; Admin Dose 15 ML; Start 09/20/18 at 14:00 Famotidine (Pepcid Iv) 20 mg Q24H IV Last administered on 09/22/18 12:18; Admin Dose 20 MG; Start 09/21/18 at 15:00 Aspirin (Aspirin) 300 mg DAILY HI Last administered on 09/22/18 09:28; Admin Dose 300 MG; Start 09/21/18 at 20:00 Furosemide (Lasix) 40 mg DAILY IV Last administered on 09/22/18 09:29; Admin Dose 40 MG; Start 09/22/18 at 09:00 TAYLOR RIZZO NP Sep 22, 2018 14:20
--- NOTE | 2018-09-22 15:10 | PN ---
DATE: 09/22/2018 SUBJECTIVE: The patient was seen, appears to be resting comfortably, even lying flat, in no distress . Noted Lasix administration by the enterprise application analyst. BNP was high. PHYSICAL EXAMINATION: VITAL SIGNS: Temperature 97.9, pulse 77, respirations 20, blood pressure 148/69, saturation 93% on r oom air. GENERAL: The patient is in no acute distress. HEENT: Normocephalic atraumatic. Nasal oral ulcers. CARDIOVASCULAR: S1, S2. LUNGS: Decreased bilaterally; otherwise clear. ABDOMEN: Soft, nontender. EXTREMITIES: There is trace to +1 pedal edema in upper extremity and hand edema is trace. LABORATORY DATA: White count is 5.4, hemoglobin 10.2, hematocrit 32, platelet count of 196, neutroph ils 83%, bands of 5. Chemistry: Sodium 143, potassium 3.5, chloride 112, bicarbonate 27, BUN is 45, creatinine 1.87, glucose 150. BNP is high at 21,100. CURRENT MEDICATIONS: Reviewed. They include: 1. Lasix 40 IV daily. 2. Potassium chloride x1. 3. Aspirin rectally daily. Other meds cannot be given as he is n.p.o. As the patient looks quite good, we will try to advance d iet to pureed diet if okay by speech therapy. ASSESSMENT AND PLAN: This is an 87-year-old [place] male with history of atrial fibrillation, hyper tension, low back pain, who presented with shortness of breath, was found to have multifocal pneumoni a, pre-acute respiratory distress syndrome picture, status post prolonged ventilatory support, now ex tubated day 4. 1. Respiratory: Lungs are clear. The patient has been on steroid therapy, diuretics and has been t reated with antibiotics, clinically better. Follow up chest x-ray. 2. Dysphagia. Clinically, looks better. We will advance diet to pureed nectar thickened liquids, 2 -gram sodium if okay by speech therapy. Head elevation is advised. I anticipate the patient to do w ell as clinically he looks much better. 3. Anemia. Monitor hemoglobin and hematocrit. Continue Pepcid IV. 4. Multiple wounds. Continue wound care. 5. Neurologically stable, slightly anxious, partly may be due to being on IV Solu-Medrol. 6. Acute renal failure, probably due to diuresis. Nephrology is following. Lasix was given. 7. Physical therapy as tolerated. I will be in touch with the nephew on a regular basis. We will follow. Dictated By: SERGIO CERVANTES/NEHAL Conf#: [id number] DID#: [id number] CC: OLIVE ANDREWS MD;*End*
--- NOTE | 2018-09-22 15:28 | CONS ---
Consult Date/Type/Reason Admit Date/Time Aug 29, 2018 at 05:45 Initial Consult Date 08/30/18 Type of Consult Pulmonary Requesting Provider: SERGIO TREVINO MD Date/Time of Note DATE: 09/22/18 TIME: 15:27 Subjective Appears comfortable today. No respiratory distress. Objective Vital Signs Date Temp Pulse Resp B/P (MAP) Pulse Ox O2 O2 Flow FiO2 Time Delivery Rate 09/22/18 2.0 15:11 09/22/18 Nasal 15:11 Cannula 09/22/18 76 20 98 14:04 09/22/18 98.8 141/68 11:40 (92) 09/22/18 21 08:05 Intake and Output 09/21/18 09/21/18 09/22/18 1515:00 23:00 07:00 IntakeIntake Total 400 ml 300 ml OutputOutput Total 400 ml 1100 ml 400 ml BalanceBalance 0 ml -1100 ml -100 ml Exam GENERAL: Elderly gentleman appears comfortable at rest no acute distress VITAL SIGNS: per chart NECK: Supple. No JVD or lymphadenopathy. CARDIAC EXAM: S1, S2. No added sounds or murmurs. CHEST: Diminished air entry bilaterally with few expiratory wheezes ABDOMEN: Soft, nontender. No guarding or rebound. EXTREMITIES: No cyanosis, clubbing edema +1 NEUROLOGIC: Generalized weakness. No focal deficits. Vent Setting Ventilator Support Mode: CPAP Fraction of Inspired Oxygen pe: 21 Positive End Expiratory Pressu: 5.0 Results/Medications Result Diagram: 09/22/18 0500 09/22/18 0445 Results 24 hrs Laboratory Tests Test 09/22/18 04:45 09/22/18 05:00 Sodium Level 143 Potassium Level 3.5 Chloride Level 112 H Carbon Dioxide Level 27 Anion Gap 4 L Blood Urea Nitrogen 45 H Creatinine 1.87 H Est Glomerular Filtrat Rate mL/min Glucose Level 150 Calcium Level 7.5 L Phosphorus Level 4.5 Magnesium Level 2.0 B-Type Natriuretic Peptide 03715 H White Blood Count 5.4 # Red Blood Count 3.31 L Hemoglobin 10.2 L Hematocrit 31.9 L Mean Corpuscular Volume 96.4 Mean Corpuscular Hemoglobin 30.8 Mean Corpuscular Hemoglobin Concent 32.0 Red Cell Distribution Width 14.9 H Platelet Count 196 Mean Platelet Volume 11.4 H Immature Granulocytes % 0.700 H Neutrophils % Segmented Neutrophils % (Manual) 83 H Band Neutrophils % (Manual) 5 H Lymphocytes % Lymphocytes % (Manual) 8 L Monocytes % Monocytes % (Manual) 3 Eosinophils % Eosinophils % (Manual) 1 Basophils % Nucleated Red Blood Cells % 0.0 Immature Granulocytes # 0.040 H Neutrophils # Neutrophils # (Manual) 4.5 Band Neutrophils # 0.2 Lymphocytes (Manual) 0.4 L Lymphocytes # Monocytes # Monocytes # (Manual) 0.1 L Eosinophils # Basophils # Nucleated Red Blood Cells # Platelet Estimate NORMAL Anisocytosis 1+ Medications Current Medications IV Flush (NS 3 ml) 3 ml PER PROTOCOL IV ; Start 08/29/18 at 06:00 Ondansetron HCl (Zofran Inj) 4 mg Q6H PRN IV NAUSEA/VOMITING Last administered on 08/31/18at 05:02; Admin Dose 4 MG; Start 08/29/18 at 06:00 Lorazepam (Ativan) 0.5 mg Q6H PRN PO ANXIETY; Start 09/02/18 at 13:00 Bisacodyl (Dulcolax Supp) 10 mg DAILY PRN OR CONSTIPATION; Start 09/03/18 at 12:00 Heparin Sodium (Porcine) (Heparin (5000 Units/1ml)) 5,000 unit BID SC Last administered on 09/22/18 09:34; Admin Dose 5,000 UNIT; Start 09/03/18 at 14:00 Hydralazine HCl (Apresoline) 10 mg Q3 PRN IV ELEVATED SYSTOLIC BP Last administered on 09/05/18at 19:48; Admin Dose 10 MG; Start 09/03/18 at 18:00 Albuterol/ Ipratropium (Duoneb) 3 ml Q2H RESP THERAPY PRN HHN SHORTNESS OF BREATH Last administered on 09/21/18at 06:45; Admin Dose 3 ML; Start 09/03/18 at 20:00 Fentanyl 100 ml @ 2.5 mls/hr TITRATE IV Last administered on 09/17/18at 11:11; Admin Dose 2.5 MLS/HR; Start 09/07/18 at 09:30; Status Hold Multivitamins (Multivitamin) 30 ml DAILY NGT Last administered on 09/18/18at 08:11; Admin Dose 30 ML; Start 09/07/18 at 14:30 Ascorbic Acid (Vitamin C) 500 mg DAILY NGT Last administered on 09/18/18 08:11; Admin Dose 500 MG; Start 09/07/18 at 14:30 Folic Acid (Folic Acid) 1 mg DAILY NGT Last administered on 09/18/18 08:11; Admin Dose 1 MG; Start 09/07/18 at 14:30 Petrolatum (Vaseline) APPLY TO MULTIPLE SC... BID TOP Last administered on 09/22/18 09:31; Admin Dose 1 APPLIC; Start 09/08/18 at 09:00 IV Flush (NS 10 ml) 10 ml PRN PRN IV FLUSH LINE; Start 09/09/18 at 11:30 Triamcinolone Acetonide (Kenalog 0.1% Cr) 1 applic BID TOP Last administered on 09/22/18 09:32; Admin Dose 1 APPLIC; Start 09/12/18 at 14:00 Sevelamer Carbonate (Renvela) 0.8 gm Q8H NGT Last administered on 09/18/18 13:19; Admin Dose 0.8 GM; Start 09/13/18 at 12:30 Lansoprazole (Prevacid) 30 mg BID@0600,1800 NGT Last administered on 09/18/18 05:26; Admin Dose 30 MG; Start 09/15/18 at 18:00 Albuterol/ Ipratropium (Duoneb) 3 ml Q6H RESP THERAPY HHN Last administered on 09/22/18 13:54; Admin Dose 3 ML; Start 09/19/18 at 08:00 Methylprednisolone Sodium Succinate (Solu-Medrol) 30 mg Q12 IV Last adminis tered on 09/22/18 09:28; Admin Dose 30 MG; Start 09/20/18 at 09:00 Acetaminophen (Tylenol Liquid) 650 mg Q6H PRN NGT .PAIN 1-3 OR TEMP; Start 09/20/18 at 09:00 Docusate Sodium (Colace Liquid Cup) 100 mg BID NGT ; Start 09/20/18 at 09:00 Docusate Sodium (Colace Liquid Cup) 100 mg Q12H PRN NGT .CONSTIPATION; Start 09/20/18 at 11:00 Escitalopram Oxalate (Lexapro) 20 mg DAILY NGT ; Start 09/20/18 at 09:00; Status Hold Lactobacillus Acidophilus/ Rhamnosus (Culturelle) 1 cap BID NGT ; Start 09/20/18 at 09:00 Magnesium Hydroxide (Milk Of Mag) 30 ml DAILY PRN NGT .CONSTIPATION; Start 09/20/18 at 09:00 Valacyclovir HCl (Valtrex) 500 mg BID NGT ; Start 09/20/18 at 09:00 Zinc Sulfate (Zinc Sulfate) 220 mg DAILY NGT ; Start 09/20/18 at 09:00 Dextrose 1,000 ml @ 40 mls/hr Q24H IV Last administered on 09/22/18 05:34; Admin Dose 75 MLS/HR; Start 09/20/18 at 09:30 Linezolid 300 ml @ 300 mls/hr Q12 IVPB Last administered on 09/22/18 09:41; Admin Dose 300 MLS/HR; Start 09/20/18 at 11:00; Stop 09/24/18 at 10:59 Mupirocin (Bactroban) 1 applic BID TOP Last administered on 09/22/18 09:32; Admin Dose 1 APPLIC; Start 09/20/18 at 11:30 Chlorhexidine Gluconate (Peridex) 15 ml BID MT Last administered on 09/22/18 09:28; Admin Dose 15 ML; Start 09/20/18 at 14:00 Famotidine (Pepcid Iv) 20 mg Q24H IV Last administered on 09/22/18 12:18; Admin Dose 20 MG; Start 09/21/18 at 15:00 Aspirin (Aspirin) 300 mg DAILY OR Last administered on 09/22/18 09:28; Admin Dose 300 MG; Start 09/21/18 at 20:00 Furosemide (Lasix) 40 mg DAILY IV Last administered on 09/22/18 09:29; Admin Dose 40 MG; Start 09/22/18 at 09:00 Assessment/Plan Hospital Course (Demo Recall) Assessment 1. Acute hypoxemic respiratory failure likely secondary to combination of pneumonia and CHF 2. COPD with possible exacerbation currently on steroids 3. History of renal insufficiency 4. Hypernatremia 5. Encephalopathy toxic metabolic, appears to be resolving Plan 1. Continue steroids decreased to slowly 2. Continue diuretics 3. Aspiration precautions 4. Physical therapy eval 5. Monitor electrolytes 6. DVT and GI prophylaxis OLIVE ANDREWS MD, [facility] Sep 22, 2018 15:27
[2018-09-23] VITALS (10 sets, daily range): BP systolic 136–181; BP diastolic 70–91; PULSE 78–94; RESP 18–22
[2018-09-23] MEDS: ALBUTEROL/IPRATROPIUM (NEB) 3 ML AMP HHN SCH ×4 (01:38→20:49)
[2018-09-23] MEDS: SEVELAMER CARBONATE 0.8 GM PKT NGT SCH ×3 (04:22→21:32)
[2018-09-23] MEDS: LANSOPRAZOLE 30 MG CAP NGT SCH ×2 (05:54→17:28)
--- NOTE | 2018-09-23 08:00 | CONS ---
Consult Date/Type/Reason Admit Date/Time Aug 29, 2018 at 05:45 Initial Consult Date 09/07/18 Type of Consultation: neph Requesting Provider: SERGIO TREVINO MD Date/Time of Note DATE: 09/23/18 TIME: 07:59 Subjective Interventional cardiology follow-up progress note Subjective: Case discussed with the staff and telemetry was reviewed. Patient has remained in AFIB but HR is under control Patient is extubated and out of ICU on tele no report of any chest pain or pressure less resp distress today no bleeding is reported pt is able to eat now O General: Elderly gentleman. HEENT: NC/AT. pupils are equal. round. NECK: NO JVD. no stridor. CV: irregularly irregular . systolic murmur; no gallop or rubs. PULM: no wheezing + mild rhonchi. GI: SOFT, NT, ND, no rebound or guarding Extremity: 1+ B/L LE edema. no clubbing. neuro: awake and alert Psych: calm rectal: deferred EKG normal sinus rhythm Chest x-ray on admission showed: 1. Right basilar interstitial opacities, new from the prior examination from a few hours prior, likely reflecting atelectasis. 2. Mild prominence of the interstitial markings, may reflect mild underlying interstitial edema or chronic lung changes. 3. Mild cardiomegaly and aortic atherosclerosis. Chest x-ray done on 09/06/2018 shows: 1. Atherosclerosis of the thoracic aorta. 2. Persistent bilateral pulmonary infiltrates which could represent infection or non infection related edema or combination of the 2. 3. Endotracheal and nasogastric tubes in place. CXR 6.24 1. Findings suggestive of pulmonary vascular congestion with small bilateral pleural effusions. Lung aeration is improved when compared to the prior examination. 2. Mild cardiomegaly and aortic atherosclerosis. 3. Right upper extremity PICC line with tip near the cavoatrial junction. Echocardiogram done on 08/29/2018 which was personally reviewed shows: There is mild to mod enlargement of left atrium. Normal left ventricular systolic function. Normal left ventricular cavity size. Normal left ventricular wall thickness. Ejection fraction is visually estimated at 60-65 %. Normal appearance of the mitral valve. Mild mitral valve regurgitation. Normal appearance of the aortic valve. No aortic regurgitation. Normal appearance of the tricuspid valve. The estimated Peak RVSP is 53 mmHg. There is mild tricuspid regurgitation. The IVC is not well visualized. Objective Vitals Vital Signs Date Temp Pulse Resp B/P (MAP) Pulse Ox O2 O2 Flow FiO2 Time Delivery Rate 09/23/18 97.6 85 22 181/90 96 Nasal 07:48 (120) Cannula 09/23/18 2.0 01:38 09/22/18 21 08:05 Intake and Output 09/22/18 09/22/18 09/23/18 1515:00 23:00 07:00 IntakeIntake Total 1130 ml 560 ml 900 ml OutputOutput Total 350 ml 150 ml 550 ml BalanceBalance 780 ml 410 ml 350 ml Results/Medications Result Diagram: 09/23/18 0517 09/23/18 0517 Results 24 hrs Laboratory Tests Test 09/23/18 05:17 White Blood Count 5.0 Red Blood Count 3.27 L Hemoglobin 10.2 L Hematocrit 30.7 L Mean Corpuscular Volume 93.9 Mean Corpuscular Hemoglobin 31.2 Mean Corpuscular Hemoglobin Concent 33.2 Red Cell Distribution Width 14.9 H Platelet Count 211 Mean Platelet Volume 10.8 H Immature Granulocytes % 0.600 H Neutrophils % 76.6 Lymphocytes % 9.7 L Monocytes % 12.9 H Eosinophils % 0.0 Basophils % 0.2 Nucleated Red Blood Cells % 0.0 Immature Granulocytes # 0.030 Neutrophils # 3.9 Lymphocytes # 0.5 L Monocytes # 0.7 Eosinophils # 0.0 Basophils # 0.0 Nucleated Red Blood Cells # 0.0 Sodium Level 142 Potassium Level 3.9 Chloride Level 109 Carbon Dioxide Level 28 Anion Gap 5 Blood Urea Nitrogen 43 H Creatinine 1.99 H Est Glomerular Filtrat Rate mL/min Glucose Level 130 Calcium Level 7.5 L Phosphorus Level 4.1 Magnesium Level 2.0 Home Meds Reported Medications Losartan Potassium* (Losartan Potassium*) 50 Mg Tablet, 50 MG PO DAILY, TAB 08/29/18 Simvastatin (Simvastatin) 20 Mg Tablet, 20 MG PO QHS for 90 Days, #90 08/29/18 Furosemide* (Furosemide*) 40 Mg Tablet, 40 MG PO DAILY for 90 Days, #90 08/29/18 Potassium Chloride (K-Tab ER) 8 Meq Tablet.er, 8 MEQ PO BID for 90 Days, #180 08/29/18 Escitalopram Oxalate* (Escitalopram Oxalate*) 10 Mg Tablet, 20 MG PO DAILY for 90 Days, #90 6/1/19 Hydrocodone Bit-Acetaminophen (Hydrocodone Bit-APAP) 5-325MG Tablet, 1 TAB PO DAILY 08/29/18 Dexlansoprazole (Dexilant) 60 Mg , 60 MG PO DAILY for 90 Days, #90 08/29/18 Amiodarone Hcl* (Amiodarone Hcl*) 200 Mg Tablet, 200 MG PO DAILY for 90 Days, #90 08/29/18 Alprazolam* (Alprazolam*) 0.5 Mg Tablet, 0.5 MG PO QHS for 30 Days, #30 08/29/18 Medications Current Medications IV Flush (NS 3 ml) 3 ml PER PROTOCOL IV ; Start 08/29/18 at 06:00 Ondansetron HCl (Zofran Inj) 4 mg Q6H PRN IV NAUSEA/VOMITING Last administered on 08/31/18at 05:02; Admin Dose 4 MG; Start 08/29/18 at 06:00 Lorazepam (Ativan) 0.5 mg Q6H PRN PO ANXIETY; Start 09/02/18 at 13:00 Bisacodyl (Dulcolax Supp) 10 mg DAILY PRN SC CONSTIPATION; Start 09/03/18 at 12:00 Heparin Sodium (Porcine) (Heparin (5000 Units/1ml)) 5,000 unit BID SC Last administered on 09/22/18at 20:48; Admin Dose 5,000 UNIT; Start 09/03/18 at 14:00 Hydralazine HCl (Apresoline) 10 mg Q3 PRN IV ELEVATED SYSTOLIC BP Last administered on 09/05/18at 19:48; Admin Dose 10 MG; Start 09/03/18 at 18:00 Albuterol/ Ipratropium (Duoneb) 3 ml Q2H RESP THERAPY PRN HHN SHORTNESS OF BREATH Last administered on 09/21/18at 06:45; Admin Dose 3 ML; Start 09/03/18 at 20:00 Multivitamins (Multivitamin) 30 ml DAILY NGT Last administered on 09/18/18at 08:11; Admin Dose 30 ML; Start 09/07/18 at 14:30 Ascorbic Acid (Vitamin C) 500 mg DAILY NGT Last administered on 09/18/18at 08:11; Admin Dose 500 MG; Start 09/07/18 at 14:30 Folic Acid (Folic Acid) 1 mg DAILY NGT Last administered on 09/18/18at 08:11; Admin Dose 1 MG; Start 09/07/18 at 14:30 Petrolatum (Vaseline) APPLY TO MULTIPLE SC... BID TOP Last administered on 09/22/18 20:44; Admin Dose 1 APPLIC; Start 09/08/18 at 09:00 IV Flush (NS 10 ml) 10 ml PRN PRN IV FLUSH LINE; Start 09/09/18 at 11:30 Triamcinolone Acetonide (Kenalog 0.1% Cr) 1 applic BID TOP Last administered on 09/22/18 20:43; Admin Dose 1 APPLIC; Start 09/12/18 at 14:00 Sevelamer Carbonate (Renvela) 0.8 gm Q8H NGT Last administered on 09/22/18 20:41; Admin Dose 0.8 GM; Start 09/13/18 at 12:30 Lansoprazole (Prevacid) 30 mg BID@0600,1800 NGT Last administered on 09/22/18 18:18; Admin Dose 30 MG; Start 09/15/18 at 18:00 Albuterol/ Ipratropium (Duoneb) 3 ml Q6H RESP THERAPY HHN Last administered on 09/23/18 01:38; Admin Dose 3 ML; Start 09/19/18 at 08:00 Methylprednisolone Sodium Succinate (Solu-Medrol) 30 mg Q12 IV Last administered on 09/22/18 20:42; Admin Dose 30 MG; Start 09/20/18 at 09:00 Acetaminophen (Tylenol Liquid) 650 mg Q6H PRN NGT .PAIN 1-3 OR TEMP; Start 09/20/18 at 09:00 Docusate Sodium (Colace Liquid Cup) 100 mg BID NGT Last administered on 09/22/18 20:42; Admin Dose 100 MG; Start 09/20/18 at 09:00 Docusate Sodium (Colace Liquid Cup) 100 mg Q12H PRN NGT .CONSTIPATION; Start 09/20/18 at 11:00 Escitalopram Oxalate (Lexapro) 20 mg DAILY NGT ; Start 09/20/18 at 09:00; Status Hold Lactobacillus Acidophilus/ Rhamnosus (Culturelle) 1 cap BID NGT Last ad ministered on 09/22/18 20:42; Admin Dose 1 CAP; Start 09/20/18 at 09:00 Magnesium Hydroxide (Milk Of Mag) 30 ml DAILY PRN NGT .CONSTIPATION; Start 09/20/18 at 09:00 Valacyclovir HCl (Valtrex) 500 mg BID NGT Last administered on 09/22/18 20:42; Admin Dose 500 MG; Start 09/20/18 at 09:00 Zinc Sulfate (Zinc Sulfate) 220 mg DAILY NGT ; Start 09/20/18 at 09:00 Dextrose 1,000 ml @ 40 mls/hr Q24H IV Last administered on 09/22/18 05:34; Admin Dose 75 MLS/HR; Start 09/20/18 at 09:30 Linezolid 300 ml @ 300 mls/hr Q12 IVPB Last administered on 09/22/18 20:42; Admin Dose 300 MLS/HR; Start 09/20/18 at 11:00; Stop 09/24/18 at 10:59 Mupirocin (Bactroban) 1 applic BID TOP Last administered on 09/22/18 20:43; Admin Dose 1 APPLIC; Start 09/20/18 at 11:30 Chlorhexidine Gluconate (Peridex) 15 ml BID MT Last administered on 09/22/18 20:42; Admin Dose 15 ML; Start 09/20/18 at 14:00 Famotidine (Pepcid Iv) 20 mg Q24H IV Last administered on 09/22/18 12:18; Admin Dose 20 MG; Start 09/21/18 at 15:00 Aspirin (Aspirin) 300 mg DAILY SC Last administered on 09/22/18 09:28; Admin Dose 300 MG; Start 09/21/18 at 20:00 Furosemide (Lasix) 40 mg DAILY IV Last administered on 09/22/18 09:29; Admin Dose 40 MG; Start 09/22/18 at 09:00 Assessment/Plan Hospital Course (Demo Recall) 1. sick sinus with Marked sinus bradycardia: y 2. Acute hypoxemic respiratory failure status post intubation on the vent 3. Pulmonary hypertension 4. History of proximal atrial fibrillation: currently has remained in normal sinus rhythm/sinus bradycardia 5. Hypertension 6. Urinary retention status post surgery 7. Pneumonia possible COPD possible ARDS 8. Acute renal failure 9. P-AFIB 10. CHF/ fluid overload Recommendations: pt has been taken off the amiodarone given his marked bradycardia as well as his significant pulmonary disease. Continue blood pressure control. Respiratory care to be continued. Antibiotic management as per internal medicine consultants We will continue to monitor on telemetry thyroid management as per IM . TSH was normal as of 09/12/18 Antibiotic as per internal medicine will start ASA daily po now. consider full anticoagulation with eliquis 2.5 bid instead of ASA if OK WITH GI Thank you for his referral. We will continue to follow along with you as needed over the weekend . AMANDA DUNBAR MD [facility] AMANDA DUNBAR MD Sep 23, 2018 08:00
--- NOTE | 2018-09-23 08:35 | PN ---
DATE: 09/23/2018 SUBJECTIVE: The patient remains stable. No events overnight. OBJECTIVE: VITAL SIGNS: Blood pressure is 181/90, pulse 85, respirations 22, temperature 97.6. HEENT: Head is normocephalic. NECK: Supple. HEART: Regular rate. LUNGS: Show diminished breath sounds at the base. ABDOMEN: Soft, nontender to palpation without rebound or guarding. EXTREMITIES: Negative for clubbing, cyanosis. Positive edema. DERMATOLOGIC: No rashes. MUSCULOSKELETAL: No joint effusion. NEUROLOGIC: No change in exam. MEDICATIONS: Reviewed. LABORATORY DATA: Reviewed. IMAGING STUDIES: Reviewed. ASSESSMENT AND PLAN: 1. Nonoliguric acute kidney injury with unknown baseline creatinine. Etiology of acute kidney injur y is secondary to acute tubular necrosis and hemodynamics. Renal function has been fluctuating. Con tinue current treatment plan, supportive care, renally dose all medications. 2. Volume overload. Etiology is multifactorial secondary to sepsis, heart failure, capillary leak. Continue current diuretic regimen, monitor renal function and electrolytes closely. 3. Hypernatremia, improved. We will discontinue D5 water and monitor. 4. Anemia. Continue to monitor hemoglobin and hematocrit levels, transfuse PRBCs as needed. 5. Mineral bone disorder. Monitor calcium and phosphorus levels. 6. Respiratory failure, status post extubation. Continue to monitor. 7. Sepsis secondary to pneumonia. Continue current antibiotic regimen. 8. Acute encephalopathy, etiology is toxic metabolic. 9. Benign prostatic hypertrophy. 10. Diastolic heart failure. The patient is currently decompensated. Continue current diuretic reg imen, monitor closely. Dictated By: ANGELA BALLARD DO NR/NTS Conf#: [id number] DID#: [id number] CC: SERGIO TREVINO MD; OLIVE ANDREWS MD;*End*
[2018-09-23] MEDS: MULTIVITAMINS 30 ML CUP NGT SCH (09:00)
[2018-09-23] MEDS: DOCUSATE SODIUM 10 MG/ML (10ML CUP) NGT SCH ×2 (09:00→21:33)
[2018-09-23] MEDS: METHYLPREDNISOLONE 40 MG INJ IV SCH ×2 (09:19→21:32)
[2018-09-23] MEDS: CHLORHEXIDINE GLUCONATE 15 ML UD CUP MT SCH ×2 (09:19→21:33)
[2018-09-23] MEDS: FUROSEMIDE 40 MG INJ IV SCH (09:19)
[2018-09-23] MEDS: LINEZOLID 600 MG/300 ML (PMX) 300 ML IVPB SCH ×2 (09:19→21:54)
[2018-09-23] MEDS: FAMOTIDINE 20 MG INJ IV SCH (09:20)
[2018-09-23] MEDS: LACTOBACILLUS RHAMNOSUS CAP NGT SCH ×2 (09:20→21:34)
[2018-09-23] MEDS: ASCORBIC ACID 500 MG TAB NGT SCH (09:20)
[2018-09-23] MEDS: valACYclovir 500 MG TAB NGT SCH ×2 (09:20→21:33)
[2018-09-23] MEDS: ZINC SULFATE 220 MG CAP NGT SCH (09:20)
[2018-09-23] MEDS: ASPIRIN 300 MG SUPP PR SCH (09:20)
[2018-09-23] MEDS: FOLIC ACID 1 MG TAB NGT SCH (09:20)
[2018-09-23] MEDS: BALSAM PERU/CASTOR OIL 60 GM TUBE TOP SCH ×2 (09:21→21:36)
[2018-09-23] MEDS: PETROLATUM 5 GM OINT TOP SCH ×2 (09:21→21:36)
[2018-09-23] MEDS: TRIAMCINOLONE ACET 0.1% 15 GM CR TOP SCH ×2 (09:21→21:36)
[2018-09-23] MEDS: MUPIROCIN 2% 22 GM OINT TOP SCH ×2 (09:21→21:36)
[2018-09-23] MEDS: HEPARIN 5,000 UNIT/1 ML VIAL SC SCH ×2 (09:26→21:43)
--- NOTE | 2018-09-23 15:44 | CONS ---
Consult Date/Type/Reason Admit Date/Time Aug 29, 2018 at 05:45 Initial Consult Date 08/30/18 Type of Consult Pulmonary Requesting Provider: SERGIO TREVINO MD Date/Time of Note DATE: 09/23/18 TIME: 15:43 Subjective Patient stable no new events. Objective Vital Signs Date Temp Pulse Resp B/P (MAP) Pulse Ox O2 O2 Flow FiO2 Time Delivery Rate 09/23/18 Nasal 2.0 15:32 Cannula 09/23/18 91 20 98 13:50 09/23/18 98.2 151/70 11:09 (97) 09/22/18 21 08:05 Intake and Output 09/22/18 09/22/18 09/23/18 1515:00 23:00 07:00 IntakeIntake Total 1130 ml 560 ml 900 ml OutputOutput Total 350 ml 150 ml 550 ml BalanceBalance 780 ml 410 ml 350 ml Exam GENERAL: Elderly gentleman appears comfortable at rest no acute distress VITAL SIGNS: per chart NECK: Supple. No JVD or lymphadenopathy. CARDIAC EXAM: S1, S2. No added sounds or murmurs. CHEST: Diminished air entry bilaterally with few expiratory wheezes ABDOMEN: Soft, nontender. No guarding or rebound. EXTREMITIES: No cyanosis, clubbing edema +1 NEUROLOGIC: Generalized weakness. No focal deficits. Vent Setting Ventilator Support Mode: CPAP Fraction of Inspired Oxygen pe: 21 Positive End Expiratory Pressu: 5.0 Results/Medications Result Diagram: 09/23/1817 09/23/1817 Results 24 hrs Laboratory Tests Test 09/23/18 05:17 White Blood Count 5.0 Red Blood Count 3.27 L Hemoglobin 10.2 L Hematocrit 30.7 L Mean Corpuscular Volume 93.9 Mean Corpuscular Hemoglobin 31.2 Mean Corpuscular Hemoglobin Concent 33.2 Red Cell Distribution Width 14.9 H Platelet Count 211 Mean Platelet Volume 10.8 H Immature Granulocytes % 0.600 H Neutrophils % 76.6 Segmented Neutrophils % (Manual) 79 H Band Neutrophils % (Manual) 7 H Lymphocytes % 9.7 L Lymphocytes % (Manual) 7 L Monocytes % 12.9 H Monocytes % (Manual) 7 Eosinophils % 0.0 Basophils % 0.2 Nucleated Red Blood Cells % 0.0 Immature Granulocytes # 0.030 Neutrophils # 3.9 Neutrophils # (Manual) 4.0 Band Neutrophils # 0.3 Lymphocytes (Manual) 0.3 L Lymphocytes # 0.5 L Monocytes # 0.7 Monocytes # (Manual) 0.3 Eosinophils # 0.0 Basophils # 0.0 Nucleated Red Blood Cells # 0.0 White Cell Morphology Comment @See below Platelet Estimate NORMAL Giant Platelets 2 H Poikilocytosis 1+ Ovalocytes 1+ Red Cell Morphology Comment @See below Sodium Level 142 Potassium Level 3.9 Chloride Level 109 Carbon Dioxide Level 28 Anion Gap 5 Blood Urea Nitrogen 43 H Creatinine 1.99 H Est Glomerular Filtrat Rate mL/min Glucose Level 130 Calcium Level 7.5 L Phosphorus Level 4.1 Magnesium Level 2.0 Medications Current Medications IV Flush (NS 3 ml) 3 ml PER PROTOCOL IV ; Start 08/29/18 at 06:00 Ondansetron HCl (Zofran Inj) 4 mg Q6H PRN IV NAUSEA/VOMITING Last administered on 08/31/18at 05:02; Admin Dose 4 MG; Start 08/29/18 at 06:00 Lorazepam (Ativan) 0.5 mg Q6H PRN PO ANXIETY; Start 09/02/18 at 13:00 Bisacodyl (Dulcolax Supp) 10 mg DAILY PRN [place] CONSTIPATION; Start 09/03/18 at 12:00 Heparin Sodium (Porcine) (Heparin (5000 Units/1ml)) 5,000 unit BID SC Last administered on 09/23/18at 09:26; Admin Dose 5,000 UNIT; Start 09/03/18 at 14:00 Hydralazine HCl (Apresoline) 10 mg Q3 PRN IV ELEVATED SYSTOLIC BP Last administered on 09/05/18at 19:48; Admin Dose 10 MG; Start 09/03/18 at 18:00 Albuterol/ Ipratropium (Duoneb) 3 ml Q2H RESP THERAPY PRN HHN SHORTNESS OF BREATH Last administered on 09/21/18at 06:45; Admin Dose 3 ML; Start 09/03/18 at 20:00 Multivitamins (Multivitamin) 30 ml DAILY NGT Last administered on 09/18/18at 08:11; Admin Dose 30 ML; Start 09/07/18 at 14:30 Ascorbic Acid (Vitamin C) 500 mg DAILY NGT Last administered on 09/23/18at 09:20; Admin Dose 500 MG; Start 09/07/18 at 14:30 Folic Acid (Folic Acid) 1 mg DAILY NGT Last administered on 09/23/18 09:20; Admin Dose 1 MG; Start 09/07/18 at 14:30 Petrolatum (Vaseline) APPLY TO MULTIPLE SC... BID TOP Last administered on 09:21; Admin Dose 1 APPLIC; Start 09/08/18 at 09:00 IV Flush (NS 10 ml) 10 ml PRN PRN IV FLUSH LINE; Start 09/09/18 at 11:30 Triamcinolone Acetonide (Kenalog 0.1% Cr) 1 applic BID TOP Last administered on 09/23/18 09:21; Admin Dose 1 APPLIC; Start 09/12/18 at 14:00 Sevelamer Carbonate (Renvela) 0.8 gm Q8H NGT Last administered on 09/23/18 12:18; Admin Dose 0.8 GM; Start 09/13/18 at 12:30 Lansoprazole (Prevacid) 30 mg BID@0600,1800 NGT Last administered on 09/22/18 18:18; Admin Dose 30 MG; Start 09/15/18 at 18:00 Albuterol/ Ipratropium (Duoneb) 3 ml Q6H RESP THERAPY HHN Last administered on 09/23/18at 13:40; Admin Dose 3 ML; Start 09/19/18 at 08:00 Methylprednisolone Sodium Succinate (Solu-Medrol) 30 mg Q12 IV Last administered on 09/23/18 09:19; Admin Dose 30 MG; Start 09/20/18 at 09:00 Acetaminophen (Tylenol Liquid) 650 mg Q6H PRN NGT .PAIN 1-3 OR TEMP; Start 09/20/18 at 09:00 Docusate Sodium (Colace Liquid Cup) 100 mg BID NGT Last administered on 09/22/18at 20:42; Admin Dose 100 MG; Start 09/20/18 at 09:00 Docusate Sodium (Colace Liquid Cup) 100 mg Q12H PRN NGT .CONSTIPATION; Start 09/20/18 at 11:00 Escitalopram Oxalate (Lexapro) 20 mg DAILY NGT ; Start 09/20/18 at 09:00; Status Hold Lactobacillus Acidophilus/ Rhamnosus (Culturelle) 1 cap BID NGT Last adm inistered on 09/23/18 09:20; Admin Dose 1 CAP; Start 09/20/18 at 09:00 Magnesium Hydroxide (Milk Of Mag) 30 ml DAILY PRN NGT .CONSTIPATION; Start 09/20/18 at 09:00 Valacyclovir HCl (Valtrex) 500 mg BID NGT Last administered on 09/23/18 09:20; Admin Dose 500 MG; Start 09/20/18 at 09:00 Zinc Sulfate (Zinc Sulfate) 220 mg DAILY NGT Last administered on 09/23/18 09:20; Admin Dose 220 MG; Start 09/20/18 at 09:00 Linezolid 300 ml @ 300 mls/hr Q12 IVPB Last administered on 09/23/18 09:19; Admin Dose 300 MLS/HR; Start 09/20/18 at 11:00; Stop 09/24/18 at 10:59 Mupirocin (Bactroban) 1 applic BID TOP Last administered on 09/23/18 09:21; Admin Dose 1 APPLIC; Start 09/20/18 at 11:30 Chlorhexidine Gluconate (Peridex) 15 ml BID MT Last administered on 09/23/18 09:19; Admin Dose 15 ML; Start 09/20/18 at 14:00 Aspirin (Aspirin) 300 mg DAILY [place] Last administered on 09/23/18 09:20; Admin Dose 300 MG; Start 09/21/18 at 20:00 Assessment/Plan Hospital Course (Demo Recall) Assessment 1. Acute hypoxemic respiratory failure likely secondary to combination of pneumonia and CHF 2. COPD with possible exacerbation currently on steroids 3. History of renal insufficiency 4. Hypernatremia 5. Encephalopathy toxic metabolic, appears to be resolving Plan 1. Continue steroids decreased to slowly 2. Continue diuretics 3. Aspiration precautions [facility] [place]. Consider [place]. OLIVE ANDREWS MD, [facility] Sep 23, 2018 15:43
--- NOTE | 2018-09-23 15:46 | CONS ---
Assessment/Plan Assessment/Plan Hospital Course (Demo Recall) Alert, feels good, no fevers overnight Antimicrobials: Zyvox Valtrex Indwelling's: Mcgowan catheter, PICC Physical examination: Well-developed well-nourished elderly man who is awake in no distress. Head atraumatic normocephalic sclera nonicteric vehicle mucosa dry neck is supple chest rise symmetrical breath sounds with bilateral rhonchi. Heart: S1-S2. Abdomen soft bowel sounds present. Assessment: 1. Acute hypoxemic respiratory failure status post extubated 2. Status post pneumonia 3. CHF 4. Bradycardia 5. Acute kidney injury 6. Mouth lesions, on empiric Valtrex and short course of Zyvox 7. Staph bacteremia cw contaminant Plan: Doing better, continue present care, anti-aspiration precautions, dc abx tomorrow DW son Consultation Date/Type/Reason Admit Date/Time Aug 29, 2018 at 05:45 Initial Consult Date 08/30/18 Type of Consult id Requesting Provider: SERGIO TREVINO MD Date/Time of Note DATE: 09/23/18 TIME: 15:45 Exam/Review of Systems Exam Vitals Vital Signs Date Temp Pulse Resp B/P (MAP) Pulse Ox O2 O2 Flow FiO2 Time Delivery Rate 09/23/18 Nasal 2.0 15:32 Cannula 09/23/18 91 20 98 13:50 09/23/18 98.2 151/70 11:09 (97) 09/22/18 21 08:05 Intake and Output 09/22/18 09/22/18 09/23/18 1515:00 23:00 07:00 IntakeIntake Total 1130 ml 560 ml 900 ml OutputOutput Total 350 ml 150 ml 550 ml BalanceBalance 780 ml 410 ml 350 ml Results Result Diagram: 09/23/18 0517 09/23/18 0517 Results 24hrs Laboratory Tests Test 09/23/18 05:17 White Blood Count 5.0 Red Blood Count 3.27 L Hemoglobin 10.2 L Hematocrit 30.7 L Mean Corpuscular Volume 93.9 Mean Corpuscular Hemoglobin 31.2 Mean Corpuscular Hemoglobin Concent 33.2 Red Cell Distribution Width 14.9 H Platelet Count 211 Mean Platelet Volume 10.8 H Immature Granulocytes % 0.600 H Neutrophils % 76.6 Segmented Neutrophils % (Manual) 79 H Band Neutrophils % (Manual) 7 H Lymphocytes % 9.7 L Lymphocytes % (Manual) 7 L Monocytes % 12.9 H Monocytes % (Manual) 7 Eosinophils % 0.0 Basophils % 0.2 Nucleated Red Blood Cells % 0.0 Immature Granulocytes # 0.030 Neutrophils # 3.9 Neutrophils # (Manual) 4.0 Band Neutrophils # 0.3 Lymphocytes (Manual) 0.3 L Lymphocytes # 0.5 L Monocytes # 0.7 Monocytes # (Manual) 0.3 Eosinophils # 0.0 Basophils # 0.0 Nucleated Red Blood Cells # 0.0 White Cell Morphology Comment @See below Platelet Estimate NORMAL Giant Platelets 2 H Poikilocytosis 1+ Ovalocytes 1+ Red Cell Morphology Comment @See below Sodium Level 142 Potassium Level 3.9 Chloride Level 109 Carbon Dioxide Level 28 Anion Gap 5 Blood Urea Nitrogen 43 H Creatinine 1.99 H Est Glomerular Filtrat Rate mL/min Glucose Level 130 Calcium Level 7.5 L Phosphorus Level 4.1 Magnesium Level 2.0 Medications Medication Current Medications IV Flush (NS 3 ml) 3 ml PER PROTOCOL IV ; Start 08/29/18 at 06:00 Ondansetron HCl (Zofran Inj) 4 mg Q6H PRN IV NAUSEA/VOMITING Last administered on 08/31/18at 05:02; Admin Dose 4 MG; Start 08/29/18 at 06:00 Lorazepam (Ativan) 0.5 mg Q6H PRN PO ANXIETY; Start 09/02/18 at 13:00 Bisacodyl (Dulcolax Supp) 10 mg DAILY PRN [place] CONSTIPATION; Start 09/03/18 at 12:00 Heparin Sodium (Porcine) (Heparin (5000 Units/1ml)) 5,000 unit BID SC Last administered on 09/23/18at 09:26; Admin Dose 5,000 UNIT; Start 09/03/18 at 14:00 Hydralazine HCl (Apresoline) 10 mg Q3 PRN IV ELEVATED SYSTOLIC BP Last administered on 09/05/18at 19:48; Admin Dose 10 MG; Start 09/03/18 at 18:00 Albuterol/ Ipratropium (Duoneb) 3 ml Q2H RESP THERAPY PRN HHN SHORTNESS OF BREATH Last administered on 09/21/18at 06:45; Admin Dose 3 ML; Start 09/03/18 at 20:00 Multivitamins (Multivitamin) 30 ml DAILY NGT Last administered on 09/18/18 08:11; Admin Dose 30 ML; Start 09/07/18 at 14:30 Ascorbic Acid (Vitamin C) 500 mg DAILY NGT Last administered on 09/23/18 09:20; Admin Dose 500 MG; Start 09/07/18 at 14:30 Folic Acid (Folic Acid) 1 mg DAILY NGT Last administered on 09/23/18 09:20; A dmin Dose 1 MG; Start 09/07/18 at 14:30 Petrolatum (Vaseline) APPLY TO MULTIPLE SC... BID TOP Last administered on 09/23/18 09:21; Admin Dose 1 APPLIC; Start 09/08/18 at 09:00 IV Flush (NS 10 ml) 10 ml PRN PRN IV FLUSH LINE; Start 09/09/18 at 11:30 Triamcinolone Acetonide (Kenalog 0.1% Cr) 1 applic BID TOP Last administered on 09/23/18 09:21; Admin Dose 1 APPLIC; Start 09/12/18 at 14:00 Sevelamer Carbonate (Renvela) 0.8 gm Q8H NGT Last administered on 09/23/18 12:18; Admin Dose 0.8 GM; Start 09/13/18 at 12:30 Lansoprazole (Prevacid) 30 mg BID@0600,1800 NGT Last administered on 09/22/18 18:18; Admin Dose 30 MG; Start 09/15/18 at 18:00 Albuterol/ Ipratropium (Duoneb) 3 ml Q6H RESP THERAPY HHN Last administered on 09/23/18 13:40; Admin Dose 3 ML; Start 09/19/18 at 08:00 Methylprednisolone Sodium Succinate (Solu-Medrol) 30 mg Q12 IV Last administered on 09/23/18 09:19; Admin Dose 30 MG; Start 09/20/18 at 09:00 Acetaminophen (Tylenol Liquid) 650 mg Q6H PRN NGT .PAIN 1-3 OR TEMP; Start 09/20/18 at 09:00 Docusate Sodium (Colace Liquid Cup) 100 mg BID NGT Last administered on 09/22/18 20:42; Admin Dose 100 MG; Start 09/20/18 at 09:00 Docusate Sodium (Colace Liquid Cup) 100 mg Q12H PRN NGT .CONSTIPATION; Start 09/20/18 at 11:00 Escitalopram Oxalate (Lexapro) 20 mg DAILY NGT ; Start 09/20/18 at 09:00; Status Hold Lactobacillus Acidophilus/ Rhamnosus (Culturelle) 1 cap BID NGT Last administered on 09/23/18 09:20; Admin Dose 1 CAP; Start 09/20/18 at 09:00 Magnesium Hydroxide (Milk Of Mag) 30 ml DAILY PRN NGT .CONSTIPATION; Start 09/20/18 at 09:00 Valacyclovir HCl (Valtrex) 500 mg BID NGT Last administered on 09/23/18 09:20; Admin Dose 500 MG; Start 09/20/18 at 09:00 Zinc Sulfate (Zinc Sulfate) 220 mg DAILY NGT Last administered on 09/23/18 09:20; Admin Dose 220 MG; Start 09/20/18 at 09:00 Linezolid 300 ml @ 300 mls/hr Q12 IVPB Last administered on 09/23/18 09:19; Admin Dose 300 MLS/HR; Start 09/20/18 at 11:00; Stop 09/24/18 at 10:59 Mupirocin (Bactroban) 1 applic BID TOP Last administered on 09/23/18 09:21; Admin Dose 1 APPLIC; Start 09/20/18 at 11:30 Chlorhexidine Gluconate (Peridex) 15 ml BID MT Last administered on 09/23/18 09:19; Admin Dose 15 ML; Start 09/20/18 at 14:00 Aspirin (Aspirin) 300 mg DAILY [place] Last administered on 09/23/18 09:20; Admin Dose 300 MG; Start 09/21/18 at 20:00 TAYLOR RIZZO NP Sep 23, 2018 15:46
--- NOTE | 2018-09-23 19:39 | CONS ---
Assessment/Plan Assessment/Plan Assessment/Plan (Daily) ssessment/Plan Hospital Course (Demo Recall) 87 yo male 1. Anemia with dark color stool and positive stool guaiac, most probably related to GI bleeding. -s/p EGD and colonoscopy -HH stable. 2. Renal insufficiency, which is stable. 3. Respiratory failure from the pneumonia 4. COPD 5. Critical care myopathy. 6. Status post surgery for the prostate and suprapubic catheter. 7. Multiple wounds. 8. The patient's 2D echocardiogram shows a 65% ejection fraction. 9. Acute gastritis 10. Polyp removed in descending colon during colonoscopy 11. Dysphagia -Speech therapy does not recommend PO feeding. Plan Continue present care aspiration precaution Consultation Date/Type/Reason Admit Date/Time Aug 29, 2018 at 05:45 Initial Consult Date 09/07/18 Requesting Provider: SERGIO TREVINO MD Date/Time of Note DATE: 09/23/18 TIME: 19:38 24 HR Interval Summary Constitutional: no complaints, improved Exam/Review of Systems Exam Vitals Vital Signs Date Temp Pulse Resp B/P (MAP) Pulse Ox O2 O2 Flow FiO2 Time Delivery Rate 09/23/18 98.0 94 18 171/91 97 19:33 (117) 09/23/18 2.0 17:01 09/23/18 Nasal 16:31 Cannula 09/22/18 21 08:05 Intake and Output 09/22/18 09/22/18 09/23/18 1515:00 23:00 07:00 IntakeIntake Total 1130 ml 560 ml 900 ml OutputOutput Total 350 ml 150 ml 550 ml BalanceBalance 780 ml 410 ml 350 ml Respiratory: diminished breath sounds Cardiovascular: regular rate and rhythm, nl pulses Gastrointestinal: soft, nl liver, spleen, non-tender Extremities: normal pulses Results Result Diagram: 09/23/1817 09/23/1817 Results 24hrs Laboratory Tests Test 09/23/18 05:17 White Blood Count 5.0 Red Blood Count 3.27 L Hemoglobin 10.2 L Hematocrit 30.7 L Mean Corpuscular Volume 93.9 Mean Corpuscular Hemoglobin 31.2 Mean Corpuscular Hemoglobin Concent 33.2 Red Cell Distribution Width 14.9 H Platelet Count 211 Mean Platelet Volume 10.8 H Immature Granulocytes % 0.600 H Neutrophils % 76.6 Segmented Neutrophils % (Manual) 79 H Band Neutrophils % (Manual) 7 H Lymphocytes % 9.7 L Lymphocytes % (Manual) 7 L Monocytes % 12.9 H Monocytes % (Manual) 7 Eosinophils % 0.0 Basophils % 0.2 Nucleated Red Blood Cells % 0.0 Immature Granulocytes # 0.030 Neutrophils # 3.9 Neutrophils # (Manual) 4.0 Band Neutrophils # 0.3 Lymphocytes (Manual) 0.3 L Lymphocytes # 0.5 L Monocytes # 0.7 Monocytes # (Manual) 0.3 Eosinophils # 0.0 Basophils # 0.0 Nucleated Red Blood Cells # 0.0 White Cell Morphology Comment @See below Platelet Estimate NORMAL Giant Platelets 2 H Poikilocytosis 1+ Ovalocytes 1+ Red Cell Morphology Comment @See below Sodium Level 142 Potassium Level 3.9 Chloride Level 109 Carbon Dioxide Level 28 Anion Gap 5 Blood Urea Nitrogen 43 H Creatinine 1.99 H Est Glomerular Filtrat Rate mL/min Glucose Level 130 Calcium Level 7.5 L Phosphorus Level 4.1 Magnesium Level 2.0 Medications Medication Current Medications IV Flush (NS 3 ml) 3 ml PER PROTOCOL IV ; Start 08/29/18 at 06:00 Ondansetron HCl (Zofran Inj) 4 mg Q6H PRN IV NAUSEA/VOMITING Last administered on 08/31/18at 05:02; Admin Dose 4 MG; Start 08/29/18 at 06:00 Lorazepam (Ativan) 0.5 mg Q6H PRN PO ANXIETY; Start 09/02/18 at 13:00 Bisacodyl (Dulcolax Supp) 10 mg DAILY PRN [place] CONSTIPATION; Start 09/03/18 at 12:00 Heparin Sodium (Porcine) (Heparin (5000 Units/1ml)) 5,000 unit BID SC Last administered on 09/23/18at 09:26; Admin Dose 5,000 UNIT; Start 09/03/18 at 14:00 Hydralazine HCl (Apresoline) 10 mg Q3 PRN IV ELEVATED SYSTOLIC BP Last administered on 09/05/18at 19:48; Admin Dose 10 MG; Start 09/03/18 at 18:00 Albuterol/ Ipratropium (Duoneb) 3 ml Q2H RESP THERAPY PRN HHN SHORTNESS OF BREATH Last administered on 09/21/18at 06:45; Admin Dose 3 ML; Start 09/03/18 at 20:00 Multivitamins (Multivitamin) 30 ml DAILY NGT Last administered on 09/18/18 08:11; Admin Dose 30 ML; Start 09/07/18 at 14:30 Ascorbic Acid (Vitamin C) 500 mg DAILY NGT Last administered on 09/23/18 09:20; Admin Dose 500 MG; Start 09/07/18 at 14:30 Folic Acid (Folic Acid) 1 mg DAILY NGT Last administered on 09/23/18 09:20; Admin Dose 1 MG; Start 09/07/18 at 14:30 Petrolatum (Vaseline) APPLY TO MULTIPLE SC... BID TOP Last administered on 09/23/18 09:21; Admin Dose 1 APPLIC; Start 09/08/18 at 09:00 IV Flush (NS 10 ml) 10 ml PRN PRN IV FLUSH LINE; Start 09/09/18 at 11:30 Triamcinolone Acetonide (Kenalog 0.1% Cr) 1 applic BID TOP Last administered on 09/23/18 09:21; Admin Dose 1 APPLIC; Start 09/12/18 at 14:00 Sevelamer Carbonate (Renvela) 0.8 gm Q8H NGT Last administered on 09/23/18 12:18; Admin Dose 0.8 GM; Start 09/13/18 at 12:30 Lansoprazole (Prevacid) 30 mg BID@0600,1800 NGT Last administered on 09/23/18 17:28; Admin Dose 30 MG; Start 09/15/18 at 18:00 Albuterol/ Ipratropium (Duoneb) 3 ml Q6H RESP THERAPY HHN Last administered on 09/23/18 13:40; Admin Dose 3 ML; Start 09/19/18 at 08:00 Methylprednisolone Sodium Succinate (Solu-Medrol) 30 mg Q12 IV Last administered on 09/23/18 09:19; Admin Dose 30 MG; Start 09/20/18 at 09:00 Acetaminophen (Tylenol Liquid) 650 mg Q6H PRN NGT .PAIN 1-3 OR TEMP; Start 09/20/18 at 09:00 Docusate Sodium (Colace Liquid Cup) 100 mg BID NGT Last administered on 09/22/18 20:42; Admin Dose 100 MG; Start 09/20/18 at 09:00 Docusate Sodium (Colace Liquid Cup) 100 mg Q12H PRN NGT .CONSTIPATION; Start 09/20/18 at 11:00 Escitalopram Oxalate (Lexapro) 20 mg DAILY NGT ; Start 09/20/18 at 09:00; Status Hold Lactobacillus Acidophilus/ Rhamnosus (Culturelle) 1 cap BID NGT Last administered on 09/23/18 09:20; Admin Dose 1 CAP; Start 09/20/18 at 09:00 Magnesium Hydroxide (Milk Of Mag) 30 ml DAILY PRN NGT .CONSTIPATION; Start 09/20/18 at 09:00 Valacyclovir HCl (Valtrex) 500 mg BID NGT Last administered on 09/23/18 09:20; Admin Dose 500 MG; Start 09/20/18 at 09:00 Zinc Sulfate (Zinc Sulfate) 220 mg DAILY NGT Last administered on 09/23/18 09:20; Admin Dose 220 MG; Start 09/20/18 at 09:00 Linezolid 300 ml @ 300 mls/hr Q12 IVPB Last administered on 09/23/18 09:19; Admin Dose 300 MLS/HR; Start 09/20/18 at 11:00; Stop 09/24/18 at 10:59 Mupirocin (Bactroban) 1 applic BID TOP Last administered on 09/23/18 09:21; Admin Dose 1 APPLIC; Start 09/20/18 at 11:30 Chlorhexidine Gluconate (Peridex) 15 ml BID [place] Last administered on 09/23/18 09:19; Admin Dose 15 ML; Start 09/20/18 at 14:00 Aspirin (Aspirin) 300 mg DAILY [place] Last administered on 09/23/18 09:20; Admin Dose 300 MG; Start 09/21/18 at 20:00 TOOTIE HERNANDEZ MD Sep 23, 2018 19:39
[2018-09-24] VITALS (8 sets, daily range): BP systolic 151–170; BP diastolic 59–92; PULSE 83–104; RESP 17–22
[2018-09-24] MEDS: ALBUTEROL/IPRATROPIUM (NEB) 3 ML AMP HHN SCH ×5 (01:23→21:06)
[2018-09-24] MEDS: SEVELAMER CARBONATE 0.8 GM PKT NGT SCH ×3 (05:29→20:39)
[2018-09-24] MEDS: hydrALAzine 20 MG INJ IV PRN (05:30)
[2018-09-24] MEDS: LANSOPRAZOLE 30 MG CAP NGT SCH ×2 (06:24→17:30)
--- NOTE | 2018-09-24 07:29 | PN ---
DATE: 09/23/2018 SUBJECTIVE: The patient was seen, currently on nasal cannula. The patient was seen again by the [facility] therapist who recommended to continue to place the patient on pureed diet with close assistance a nd monitoring. No acute events, otherwise. PHYSICAL EXAMINATION: VITAL SIGNS: Temperature 98.2, pulse 91, respirations 20, blood pressure 151/70, saturation 98% on 2 liters. GENERAL: No acute distress, pale. CARDIOVASCULAR: S1 and S2. LUNGS: Faint rhonchi at the bases. ABDOMEN: Soft, nontender. EXTREMITIES: +1 pedal edema. LABORATORY DATA: White count 5, hemoglobin 10.2, hematocrit 31, platelet count of 211, neutrophils 7 7%, ____. Chemistry: Sodium 142, potassium 3.9, chloride 109, bicarbonate 28, BUN is 43, creatinine 1.99 and glucose of 130. The patient's sputum culture shows ____. MEDICATIONS: 1. Lasix 40 IV daily. 2. Aspirin 300 daily. 3. Pepcid 420 IV daily. 4. Peridex 15 b.i.d. 5. Bactroban b.i.d. 6. Colace 100 q.12. 7. ____ as directed. 8. Solu-Medrol 40 IV q.12. 9. Tylenol p.r.n. 10. Colace p.r.n. 11. Culturelle b.i.d. 12. Milk of magnesia as directed. 13. Valtrex b.i.d. 14. Zinc sulfate daily. 15. Prevacid 30 mg twice a day. 16. Renvela 0.8 q.8. 17. Kenalog as directed. 18. Vaseline as directed. 19. Multivitamin 30 mL daily. 20. Vitamin C 500 mg daily. 21. Folic acid 1 mg daily. 22. DuoNeb p.r.n. 23. Hydralazine p.r.n. 24. Heparin 5000 b.i.d. 25. Dulcolax p.r.n. 26. Ativan p.r.n. 27. Zofran p.r.n. ASSESSMENT AND PLAN: This is an 87-year-old [place] male with history of atrial fibrillation, hyper tension and low back pain, who presented with shortness of breath, was found to have multifocal pneum onia, status post prolonged ventilatory support. 1. Respiratory: Overall, clinically better. Remains on Lasix, breathing treatments, steroid, taper down steroids. Follow up chest x-ray. Continue aspiration precautions. 2. Dysphagia, on pureed diet now. Continue close monitoring. 3. Physical therapy to see the patient. 4. Anemia. Continue PPI. Discontinue IV Pepcid. This patient now can tolerate pills. 5. Multiple wounds. Continue wound care. 6. Neurologically stable. 7. Acute renal failure, partly due to diuresis. Monitor kidney function. 8. Overall, clinically improved. We will follow. Dictated By: SERGIO CERVANTES/NEHAL Conf#: [id number] DID#: [id number]
--- NOTE | 2018-09-24 08:47 | PN ---
DATE: 09/24/2018 SUBJECTIVE: The patient is stable, no events overnight. No fevers, chills, nausea, vomiting. OBJECTIVE: VITAL SIGNS: Blood pressure is 157/71, pulse 91, respirations 22, temperature 98.3. HEENT: Head is normocephalic. NECK: Supple. HEART: Regular rate. LUNGS: Show diminished breath sounds at the base. ABDOMEN: Soft, nontender to palpation without rebound or guarding. EXTREMITIES: Negative for clubbing, cyanosis. Positive edema. DERMATOLOGIC: No rashes. MUSCULOSKELETAL: No joint effusions. NEUROLOGIC: No focal deficits. MEDICATIONS: Have been reviewed. LABORATORY DATA: Has been reviewed. IMAGING STUDIES: Have been reviewed. ASSESSMENT AND PLAN: 1. Nonoliguric acute kidney injury with unknown baseline creatinine. Etiology is secondary to acute tubular necrosis and hemodynamics. Renal function has been fluctuating but overall stable. Continu e current treatment plan, supportive care, renally dose all medicines. 2. Volume overload. Etiology is multifactorial secondary to sepsis, heart failure, capillary leak. The patient is clinically improving, nearing euvolemic status. We will continue intermittent diuret ic therapy as needed. 3. Hypernatremia, improved. 4. Anemia. Monitor hemoglobin and hematocrit levels. 5 Mineral bone disorder, monitor calcium and phosphorus levels. 6. Respiratory failure, status post extubation, currently stable on nasal cannula. 7. Sepsis secondary to pneumonia. Continue current antibiotic regimen. 8. Acute encephalopathy, etiology is toxic metabolic. 9. Benign prostatic hypertrophy. 10. Diastolic heart failure. The patient is clinically improving. Continue intermittent diuretic t herapy. Dictated By: ANGELA ROSENTHAL/NTS Conf#: [id number] DID#: [id number] CC: SERGIO TREVINO MD;*EndCC*
[2018-09-24] MEDS: PETROLATUM 5 GM OINT TOP SCH ×2 (08:58→20:40)
[2018-09-24] MEDS: LACTOBACILLUS RHAMNOSUS CAP NGT SCH ×2 (08:58→20:40)
[2018-09-24] MEDS: TRIAMCINOLONE ACET 0.1% 15 GM CR TOP SCH (08:58)
[2018-09-24] MEDS: BALSAM PERU/CASTOR OIL 60 GM TUBE TOP SCH (08:58)
[2018-09-24] MEDS: LINEZOLID 600 MG/300 ML (PMX) 300 ML IVPB SCH (08:59)
[2018-09-24] MEDS: ASPIRIN 300 MG SUPP PR SCH (08:59)
[2018-09-24] MEDS: ASCORBIC ACID 500 MG TAB NGT SCH (08:59)
[2018-09-24] MEDS: FOLIC ACID 1 MG TAB NGT SCH (08:59)
[2018-09-24] MEDS: DOCUSATE SODIUM 10 MG/ML (10ML CUP) NGT SCH (08:59)
[2018-09-24] MEDS: MULTIVITAMINS 30 ML CUP NGT SCH (08:59)
[2018-09-24] MEDS: METHYLPREDNISOLONE 40 MG INJ IV SCH ×2 (08:59→20:38)
[2018-09-24] MEDS: ZINC SULFATE 220 MG CAP NGT SCH (08:59)
[2018-09-24] MEDS: CHLORHEXIDINE GLUCONATE 15 ML UD CUP MT SCH (08:59)
[2018-09-24] MEDS: HEPARIN 5,000 UNIT/1 ML VIAL SC SCH ×2 (09:03→20:43)
--- NOTE | 2018-09-24 11:11 | CONS ---
Consult Date/Type/Reason Admit Date/Time Aug 29, 2018 at 05:45 Initial Consult Date 09/07/18 Type of Consultation: neph Requesting Provider: SERGIO TREVINO MD Date/Time of Note DATE: 09/24/18 TIME: 11:09 Subjective Interventional cardiology follow-up progress note Subjective: Case discussed with the staff and telemetry was reviewed. Patient has remained in AFIB but HR is under control mostly Patient is on tele no report of any chest pain or pressure no bleeding is reported pt has failed swallow eval. d/w Dr Bobby Landin General: Elderly gentleman. HEENT: NC/AT. pupils are equal. round. NECK: NO JVD. no stridor. CV: irregularly irregular . systolic murmur; no gallop or rubs. PULM: no wheezing + diffuse rhonchi. GI: SOFT, NT, ND, no rebound or guarding Extremity: 1+ B/L LE edema. no clubbing. neuro: awake and alert Psych: calm rectal: deferred EKG normal sinus rhythm Chest x-ray on admission showed: 1. Right basilar interstitial opacities, new from the prior examination from a few hours prior, likely reflecting atelectasis. 2. Mild prominence of the interstitial markings, may reflect mild underlying interstitial edema or chronic lung changes. 3. Mild cardiomegaly and aortic atherosclerosis. Chest x-ray done on 09/06/2018 shows: 1. Atherosclerosis of the thoracic aorta. 2. Persistent bilateral pulmonary infiltrates which could represent infection or non infection related edema or combination of the 2. 3. Endotracheal and nasogastric tubes in place. CXR 6.24 1. Findings suggestive of pulmonary vascular congestion with small bilateral pleural effusions. Lung aeration is improved when compared to the prior exa mination. 2. Mild cardiomegaly and aortic atherosclerosis. 3. Right upper extremity PICC line with tip near the cavoatrial junction. Echocardiogram done on 08/29/2018 which was personally reviewed shows: There is mild to mod enlargement of left atrium. Normal left ventricular systolic function. Normal left ventricular cavity size. Normal left ventricular wall thickness. Ejection fraction is visually estimated at 60-65 %. Normal appearance of the mitral valve. Mild mitral valve regurgitation. Normal appearance of the aortic valve. No aortic regurgitation. Normal appearance of the tricuspid valve. The estimated Peak RVSP is 53 mmHg. There is mild tricuspid regurgitation. The IVC is not well visualized. Objective Vitals Vital Signs Date Temp Pulse Resp B/P (MAP) Pulse Ox O2 O2 Flow FiO2 Time Delivery Rate 09/24/18 78 16 98 Nasal 2.0 09:58 Cannula 09/24/18 98.3 157/71 07:26 (99) 09/22/18 21 08:05 Intake and Output 09/23/18 09/23/18 09/24/18 1515:00 23:00 07:00 IntakeIntake Total 400 ml 100 ml OutputOutput Total 400 ml 2000 ml BalanceBalance 0 ml -1900 ml Results/Medications Result Diagram: 09/24/18 0509 09/24/18 0509 Results 24 hrs Laboratory Tests Test 09/24/18 05:09 White Blood Count 4.2 L Red Blood Count 3.41 L Hemoglobin 10.5 L Hematocrit 33.0 L Mean Corpuscular Volume 96.8 Mean Corpuscular Hemoglobin 30.8 Mean Corpuscular Hemoglobin Concent 31.8 L Red Cell Distribution Width 14.4 Platelet Count 252 Mean Platelet Volume 11.2 H Immature Granulocytes % 0.700 H Neutrophils % 84.8 H Lymphocytes % 8.6 L Monocytes % 5.9 Eosinophils % 0.0 Basophils % 0.0 Nucleated Red Blood Cells % 0.0 Immature Granulocytes # 0.030 Neutrophils # 3.6 Lymphocytes # 0.4 L Monocytes # 0.3 Eosinophils # 0.0 Basophils # 0.0 Nucleated Red Blood Cells # 0.0 Sodium Level 141 Potassium Level 4.0 Chloride Level 107 Carbon Dioxide Level 29 Anion Gap 5 Blood Urea Nitrogen 45 H Creatinine 2.05 H Est Glomerular Filtrat Rate mL/min Glucose Level 125 Calcium Level 7.5 L Phosphorus Level 4.3 Magnesium Level 2.0 Home Meds Reported Medications Losartan Potassium* (Losartan Potassium*) 50 Mg Tablet, 50 MG PO DAILY, TAB 08/29/18 Simvastatin (Simvastatin) 20 Mg Tablet, 20 MG PO QHS for 90 Days, #90 08/29/18 Furosemide* (Furosemide*) 40 Mg Tablet, 40 MG PO DAILY for 90 Days, #90 08/29/18 Potassium Chloride (K-Tab ER) 8 Meq Tablet.er, 8 MEQ PO BID for 90 Days, #180 08/29/18 Escitalopram Oxalate* (Escitalopram Oxalate*) 10 Mg Tablet, 20 MG PO DAILY for 90 Days, #90 08/29/18 Hydrocodone Bit-Acetaminophen (Hydrocodone Bit-APAP) 5-325MG Tablet, 1 TAB PO DAILY 08/29/18 Dexlansoprazole (Dexilant) 60 Mg , 60 MG PO DAILY for 90 Days, #90 08/29/18 Amiodarone Hcl* (Amiodarone Hcl*) 200 Mg Tablet, 200 MG PO DAILY for 90 Days, #90 08/29/18 Alprazolam* (Alprazolam*) 0.5 Mg Tablet, 0.5 MG PO QHS for 30 Days, #30 08/29/18 Medications Current Medications IV Flush (NS 3 ml) 3 ml PER PROTOCOL IV ; Start 08/29/18 at 06:00 Ondansetron HCl (Zofran Inj) 4 mg Q6H PRN IV NAUSEA/VOMITING Last administered on 08/31/18at 05:02; Admin Dose 4 MG; Start 08/29/18 at 06:00 Lorazepam (Ativan) 0.5 mg Q6H PRN PO ANXIETY Last administered on 09/23/18at 21:33; Admin Dose 0.5 MG; Start 09/02/18 at 13:00 Bisacodyl (Dulcolax Supp) 10 mg DAILY PRN [place] CONSTIPATION; Start 09/03/18 at 12:00 Heparin Sodium (Porcine) (Heparin (5000 Units/1ml)) 5,000 unit BID SC Last administered on 09/24/18at 09:03; Admin Dose 5,000 UNIT; Start 09/03/18 at 14:00 Hydralazine HCl (Apresoline) 10 mg Q3 PRN IV ELEVATED SYSTOLIC BP Last administered on 09/24/18at 05:30; Admin Dose 10 MG; Start 09/03/18 at 18:00 Albuterol/ Ipratropium (Duoneb) 3 ml Q2H RESP THERAPY PRN HHN SHORTNESS OF BREATH Last administered on 09/21/18at 06:45; Admin Dose 3 ML; Start 09/03/18 at 20:00 Multivitamins (Multivitamin) 30 ml DAILY NGT Last administered on 09/24/18at 08:59; Admin Dose 30 ML; Start 09/07/18 at 14:30 Ascorbic Acid (Vitamin C) 500 mg DAILY NGT Last administered on 09/24/18 08:59; Admin Dose 500 MG; Start 09/07/18 at 14:30 Folic Acid (Folic Acid) 1 mg DAILY NGT Last administered on 09/24/18 08:59; Admin Dose 1 MG; Start 09/07/18 at 14:30 Petrolatum (Vaseline) APPLY TO MULTIPLE SC... BID TOP Last administered on 09/24/18 08:58; Admin Dose 1 APPLIC; Start 09/08/18 at 09:00 IV Flush (NS 10 ml) 10 ml PRN PRN IV FLUSH LINE; Start 09/09/18 at 11:30 Triamcinolone Acetonide (Kenalog 0.1% Cr) 1 applic BID TOP Last administered on 09/24/18 08:58; Admin Dose 1 APPLIC; Start 09/12/18 at 14:00 Sevelamer Carbonate (Renvela) 0.8 gm Q8H NGT Last administered on 09/24/18 05:29; Admin Dose 0.8 GM; Start 09/13/18 at 12:30 Lansoprazole (Prevacid) 30 mg BID@0600,1800 NGT Last administered on 09/24/18 06:24; Admin Dose 30 MG; Start 09/15/18 at 18:00 Albuterol/ Ipratropium (Duoneb) 3 ml Q6H RESP THERAPY HHN Last administered on 09/24/18 09:55; Admin Dose 3 ML; Start 09/19/18 at 08:00 Methylprednisolone Sodium Succinate (Solu-Medrol) 30 mg Q12 IV Last administered on 09/24/18 08:59; Admin Dose 30 MG; Start 09/20/18 at 09:00 Acetaminophen (Tylenol Liquid) 650 mg Q6H PRN NGT .PAIN 1-3 OR TEMP; Start 09/20/18 at 09:00 Docusate Sodium (Colace Liquid Cup) 100 mg BID NGT Last administered on 09/24/18 08:59; Admin Dose 100 MG; Start 09/20/18 at 09:00 Docusate Sodium (Colace Liquid Cup) 100 mg Q12H PRN NGT .CONSTIPATION; Start 09/20/18 at 11:00 Escitalopram Oxalate (Lexapro) 20 mg DAILY NGT ; Start 09/20/18 at 09:00 Lactobacillus Acidophilus/ Rhamnosus (Culturelle) 1 cap BID NGT Last administered on 09/24/18 08:58; Admin Dose 1 CAP; Start 09/20/18 at 09:00 Magnesium Hydroxide (Milk Of Mag) 30 ml DAILY PRN NGT .CONSTIPATION; Start 09/20/18 at 09:00 Valacyclovir HCl (Valtrex) 500 mg BID NGT Last administered on 09/23/18at 21:33; Admin Dose 500 MG; Start 09/20/18 at 09:00 Zinc Sulfate (Zinc Sulfate) 220 mg DAILY NGT Last administered on 09/24/18 08:59; Admin Dose 220 MG; Start 09/20/18 at 09:00 Mupirocin (Bactroban) 1 applic BID TOP Last administered on 09/23/18 21:36; Admin Dose 1 APPLIC; Start 09/20/18 at 11:30 Chlorhexidine Gluconate (Peridex) 15 ml BID MT Last administered on 09/24/18 08:59; Admin Dose 15 ML; Start 09/20/18 at 14:00 Aspirin (Aspirin) 300 mg DAILY [place] Last administered on 09/24/18 08:59; Admin Dose 300 MG; Start 09/21/18 at 20:00 Assessment/Plan Hospital Course (Demo Recall) 1. sick sinus with Marked sinus bradycardia: y 2. Acute hypoxemic respiratory failure status post intubation on the vent 3. Pulmonary hypertension 4. History of proximal atrial fibrillation: currently has remained in normal sinus rhythm/sinus bradycardia 5. Hypertension 6. Urinary retention status post surgery 7. Pneumonia possible COPD possible ARDS 8. Acute renal failure 9. P-AFIB 10. CHF/ fluid overload Recommendations: pt has been taken off the amiodarone given his marked bradycardia as well as his significant pulmonary disease. Continue blood pressure control. Respiratory care to be continued. Antibiotic management as per internal medicine consultants We will continue to monitor on telemetry thyroid management as per IM . TSH was normal as of 09/12/18 Antibiotic as per internal medicine will start ASA daily po now. consider full anticoagulation with eliquis 2.5 bid instead of ASA if OK WITH GI will give a dose of lasix now to be adjusted as per renal rec check CXR today Thank you for his referral. We will continue to follow along with you AMANDA DUNBAR MD [facility] AMANDA DUNBAR MD Sep 24, 2018 11:11
--- NOTE | 2018-09-24 11:26 | CONS ---
Assessment/Plan Assessment/Plan Assessment/Plan (Daily) ssessment/Plan Hospital Course (Demo Recall) 87 yo male 1. Anemia with dark color stool and positive stool guaiac, most probably related to GI bleeding. -s/p EGD and colonoscopy -HH stable. 2. Renal insufficiency, which is stable. 3. Respiratory failure from the pneumonia and possible CHF. Patient's BNP is high 4. COPD 5. Critical care myopathy. 6. Status post surgery for the prostate and suprapubic catheter. 7. Multiple wounds. 8. The patient's 2D echocardiogram shows a 65% ejection fraction. 9. Acute gastritis 10. Polyp removed in descending colon during colonoscopy 11. Dysphagia Tolerating p.o. diet pure as per the staff Plan Continue present care aspiration precaution Diuretic, supplemental oxygen Consultation Date/Type/Reason Admit Date/Time Aug 29, 2018 at 05:45 Initial Consult Date 09/07/18 Requesting Provider: SERGIO TREVINO MD Date/Time of Note DATE: 09/24/18 TIME: 11:24 24 HR Interval Summary Constitutional: no complaints, requiring O2 Exam/Review of Systems Exam Vitals Vital Signs Date Temp Pulse Resp B/P (MAP) Pulse Ox O2 O2 Flow FiO2 Time Delivery Rate 09/24/18 97.5 104 22 151/59 95 Nasal 11:16 (89) Cannula 09/24/18 2.0 09:58 09/22/18 21 08:05 Intake and Output 09/23/18 09/23/18 09/24/18 1515:00 23:00 07:00 IntakeIntake Total 400 ml 100 ml OutputOutput Total 400 ml 2000 ml BalanceBalance 0 ml -1900 ml Respiratory: congested cough, crackles/rales, diminished breath sounds, wheezing Cardiovascular: regular rate and rhythm, nl pulses Extremities: edema, pitting pedal edema Neurological: FAMILY MANAGER II-XII intact, nl mental status, nl speech, nl strength Results Result Diagram: 09/24/18 0509 09/24/18 0509 Results 24hrs Laboratory Tests Test 09/24/18 05:09 White Blood Count 4.2 L Red Blood Count 3.41 L Hemoglobin 10.5 L Hematocrit 33.0 L Mean Corpuscular Volume 96.8 Mean Corpuscular Hemoglobin 30.8 Mean Corpuscular Hemoglobin Concent 31.8 L Red Cell Distribution Width 14.4 Platelet Count 252 Mean Platelet Volume 11.2 H Immature Granulocytes % 0.700 H Neutrophils % 84.8 H Lymphocytes % 8.6 L Monocytes % 5.9 Eosinophils % 0.0 Basophils % 0.0 Nucleated Red Blood Cells % 0.0 Immature Granulocytes # 0.030 Neutrophils # 3.6 Lymphocytes # 0.4 L Monocytes # 0.3 Eosinophils # 0.0 Basophils # 0.0 Nucleated Red Blood Cells # 0.0 Sodium Level 141 Potassium Level 4.0 Chloride Level 107 Carbon Dioxide Level 29 Anion Gap 5 Blood Urea Nitrogen 45 H Creatinine 2.05 H Est Glomerular Filtrat Rate mL/min Glucose Level 125 Calcium Level 7.5 L Phosphorus Level 4.3 Magnesium Level 2.0 Medications Medication Current Medications IV Flush (NS 3 ml) 3 ml PER PROTOCOL IV ; Start 08/29/18 at 06:00 Ondansetron HCl (Zofran Inj) 4 mg Q6H PRN IV NAUSEA/VOMITING Last administered on 08/31/18 05:02; Admin Dose 4 MG; Start 08/29/18 at 06:00 Lorazepam (Ativan) 0.5 mg Q6H PRN PO ANXIETY Last administered on 09/23/18at 21:33; Admin Dose 0.5 MG; Start 09/02/18 at 13:00 Bisacodyl (Dulcolax Supp) 10 mg DAILY PRN [place] CONSTIPATION; Start 09/03/18 at 12:00 Heparin Sodium (Porcine) (Heparin (5000 Units/1ml)) 5,000 unit BID SC Last administered on 09/24/18at 09:03; Admin Dose 5,000 UNIT; Start 09/03/18 at 14:00 Hydralazine HCl (Apresoline) 10 mg Q3 PRN IV ELEVATED SYSTOLIC BP Last administered on 09/24/18at 05:30; Admin Dose 10 MG; Start 09/03/18 at 18:00 Albuterol/ Ipratropium (Duoneb) 3 ml Q2H RESP THERAPY PRN HHN SHORTNESS OF BREATH Last administered on 09/21/18at 06:45; Admin Dose 3 ML; Start 09/03/18 at 20:00 Multivitamins (Multivitamin) 30 ml DAILY NGT Last administered on 09/24/18at 08:59; Admin Dose 30 ML; Start 09/07/18 at 14:30 Ascorbic Acid (Vitamin C) 500 mg DAILY NGT Last administered on 09/24/18 08:59; Admin Dose 500 MG; Start 09/07/18 at 14:30 Folic Acid (Folic Acid) 1 mg DAILY NGT Last administered on 09/24/18 08:59; Admin Dose 1 MG; Start 09/07/18 at 14:30 Petrolatum (Vaseline) APPLY TO MULTIPLE SC... BID TOP Last administered on 09/24/18 08:58; Admin Dose 1 APPLIC; Start 09/08/18 at 09:00 IV Flush (NS 10 ml) 10 ml PRN PRN IV FLUSH LINE; Start 09/09/18 at 11:30 Triamcinolone Acetonide (Kenalog 0.1% Cr) 1 applic BID TOP Last administered on 09/24/18 08:58; Admin Dose 1 APPLIC; Start 09/12/18 at 14:00 Sevelamer Carbonate (Renvela) 0.8 gm Q8H NGT Last administered on 09/24/18 05:29; Admin Dose 0.8 GM; Start 09/13/18 at 12:30 Lansoprazole (Prevacid) 30 mg BID@0600,1800 NGT Last administered on 09/24/18 06:24; Admin Dose 30 MG; Start 09/15/18 at 18:00 Albuterol/ Ipratropium (Duoneb) 3 ml Q6H RESP THERAPY HHN Last administered on 09/24/18 09:55; Admin Dose 3 ML; Start 09/19/18 at 08:00 Methylprednisolone Sodium Succinate (Solu-Medrol) 30 mg Q12 IV Last administered on 09/24/18 08:59; Admin Dose 30 MG; Start 09/20/18 at 09:00 Acetaminophen (Tylenol Liquid) 650 mg Q6H PRN NGT .PAIN 1-3 OR TEMP; Start 09/20/18 at 09:00 Docusate Sodium (Colace Liquid Cup) 100 mg BID NGT Last administered on 9at 08:59; Admin Dose 100 MG; Start 09/20/18 at 09:00 Docusate Sodium (Colace Liquid Cup) 100 mg Q12H PRN NGT .CONSTIPATION; Start 09/20/18 at 11:00 Escitalopram Oxalate (Lexapro) 20 mg DAILY NGT ; Start 09/20/18 at 09:00 Lactobacillus Acidophilus/ Rhamnosus (Culturelle) 1 cap BID NGT Last adminis tered on 09/24/18 08:58; Admin Dose 1 CAP; Start 09/20/18 at 09:00 Magnesium Hydroxide (Milk Of Mag) 30 ml DAILY PRN NGT .CONSTIPATION; Start 09/20/18 at 09:00 Valacyclovir HCl (Valtrex) 500 mg BID NGT Last administered on 09/23/18 21:33; Admin Dose 500 MG; Start 09/20/18 at 09:00 Zinc Sulfate (Zinc Sulfate) 220 mg DAILY NGT Last administered on 09/24/18 08:59; Admin Dose 220 MG; Start 09/20/18 at 09:00 Mupirocin (Bactroban) 1 applic BID TOP Last administered on 09/23/18 21:36; Admin Dose 1 APPLIC; Start 09/20/18 at 11:30 Chlorhexidine Gluconate (Peridex) 15 ml BID MT Last administered on 09/24/18 08:59; Admin Dose 15 ML; Start 09/20/18 at 14:00 Aspirin (Aspirin) 300 mg DAILY [place] Last administered on 09/24/18 08:59; Admin Dose 300 MG; Start 09/21/18 at 20:00 Furosemide (Lasix) 40 mg ONCE ONCE IV ; Start 09/24/18 at 11:30; Stop 09/24/18 at 11:31 TOOTIE HERNANDEZ MD Sep 24, 2018 11:26
[2018-09-24] MEDS: MUPIROCIN 2% 22 GM OINT TOP SCH (11:29)
[2018-09-24] MEDS ORDERED: FUROSEMIDE 40 MG INJ IV ONE (11:30)
[2018-09-24] MEDS: valACYclovir 500 MG TAB NGT SCH ×2 (11:31→20:40)
--- NOTE | 2018-09-24 12:46 | CONS ---
Consult Date/Type/Reason Admit Date/Time Aug 29, 2018 at 05:45 Initial Consult Date 08/30/18 Type of Consult Pulmonary Requesting Provider: SERGIO TREVINO MD Date/Time of Note DATE: 09/24/18 TIME: 12:45 Subjective Patient comfortable no respiratory distress Objective Vital Signs Date Temp Pulse Resp B/P (MAP) Pulse Ox O2 O2 Flow FiO2 Time Delivery Rate 09/24/18 97.5 104 22 151/59 95 Nasal 11:16 (89) Cannula 09/24/18 2.0 09:58 09/22/18 21 08:05 Intake and Output 09/23/18 09/23/18 09/24/18 1515:00 23:00 07:00 IntakeIntake Total 400 ml 100 ml OutputOutput Total 400 ml 2000 ml BalanceBalance 0 ml -1900 ml Exam GENERAL: Elderly gentleman appears comfortable at rest no acute distress VITAL SIGNS: per chart NECK: Supple. No JVD or lymphadenopathy. CARDIAC EXAM: S1, S2. No added sounds or murmurs. CHEST: Diminished air entry bilaterally with few expiratory wheezes ABDOMEN: Soft, nontender. No guarding or rebound. EXTREMITIES: No cyanosis, clubbing edema +1 NEUROLOGIC: Generalized weakness. No focal deficits Vent Setting Ventilator Support Mode: CPAP Fraction of Inspired Oxygen pe: 21 Positive End Expiratory Pressu: 5.0 Results/Medications Result Diagram: 09/24/18 0509 09/24/18 0509 Results 24 hrs Laboratory Tests Test 09/24/18 05:09 White Blood Count 4.2 L Red Blood Count 3.41 L Hemoglobin 10.5 L Hematocrit 33.0 L Mean Corpuscular Volume 96.8 Mean Corpuscular Hemoglobin 30.8 Mean Corpuscular Hemoglobin Concent 31.8 L Red Cell Distribution Width 14.4 Platelet Count 252 Mean Platelet Volume 11.2 H Immature Granulocytes % 0.700 H Neutrophils % 84.8 H Lymphocytes % 8.6 L Monocytes % 5.9 Eosinophils % 0.0 Basophils % 0.0 Nucleated Red Blood Cells % 0.0 Immature Granulocytes # 0.030 Neutrophils # 3.6 Lymphocytes # 0.4 L Monocytes # 0.3 Eosinophils # 0.0 Basophils # 0.0 Nucleated Red Blood Cells # 0.0 Sodium Level 141 Potassium Level 4.0 Chloride Level 107 Carbon Dioxide Level 29 Anion Gap 5 Blood Urea Nitrogen 45 H Creatinine 2.05 H Est Glomerular Filtrat Rate mL/min Glucose Level 125 Calcium Level 7.5 L Phosphorus Level 4.3 Magnesium Level 2.0 Medications Current Medications IV Flush (NS 3 ml) 3 ml PER PROTOCOL IV ; Start 08/29/18 at 06:00 Ondansetron HCl (Zofran Inj) 4 mg Q6H PRN IV NAUSEA/VOMITING Last administered on 08/31/18 05:02; Admin Dose 4 MG; Start 08/29/18 at 06:00 Lorazepam (Ativan) 0.5 mg Q6H PRN PO ANXIETY Last administered on 09/23/18 21:33; Admin Dose 0.5 MG; Start 09/02/18 at 13:00 Bisacodyl (Dulcolax Supp) 10 mg DAILY PRN [place] CONSTIPATION; Start 09/03/18 at 12:00 Heparin Sodium (Porcine) (Heparin (5000 Units/1ml)) 5,000 unit BID SC Last administered on 09/24/18 09:03; Admin Dose 5,000 UNIT; Start 09/03/18 at 14:00 Hydralazine HCl (Apresoline) 10 mg Q3 PRN IV ELEVATED SYSTOLIC BP Last administered on 09/24/18 05:30; Admin Dose 10 MG; Start 09/03/18 at 18:00 Albuterol/ Ipratropium (Duoneb) 3 ml Q2H RESP THERAPY PRN HHN SHORTNESS OF BREATH Last administered on 09/21/18 06:45; Admin Dose 3 ML; Start 09/03/18 at 20:00 Multivitamins (Multivitamin) 30 ml DAILY NGT Last administered on 09/24/18 08:59; Admin Dose 30 ML; Start 09/07/18 at 14:30 Ascorbic Acid (Vitamin C) 500 mg DAILY NGT Last administered on 09/24/18 08:59; Admin Dose 500 MG; Start 09/07/18 at 14:30 Folic Acid (Folic Acid) 1 mg DAILY NGT Last administered on 09/24/18 08:59; Admin Dose 1 MG; Start 09/07/18 at 14:30 Petrolatum (Vaseline) APPLY TO MULTIPLE SC... BID TOP Last administered on 08/30 08:58; Admin Dose 1 APPLIC; Start 09/08/18 at 09:00 IV Flush (NS 10 ml) 10 ml PRN PRN IV FLUSH LINE; Start 09/09/18 at 11:30 Triamcinolone Acetonide (Kenalog 0.1% Cr) 1 applic BID TOP Last administered on 09/24/18 08:58; Admin Dose 1 APPLIC; Start 09/12/18 at 14:00 Sevelamer Carbonate (Renvela) 0.8 gm Q8H NGT Last administered on 09/24/18 05:29; Admin Dose 0.8 GM; Start 09/13/18 at 12:30 Lansoprazole (Prevacid) 30 mg BID@0600,1800 NGT Last administered on 09/24/18 06:24; Admin Dose 30 MG; Start 09/15/18 at 18:00 Albuterol/ Ipratropium (Duoneb) 3 ml Q6H RESP THERAPY HHN Last administered on 09/24/18 09:55; Admin Dose 3 ML; Start 09/19/18 at 08:00 Methylprednisolone Sodium Succinate (Solu-Medrol) 30 mg Q12 IV Last administered on 09/24/18 08:59; Admin Dose 30 MG; Start 09/20/18 at 09:00 Acetaminophen (Tylenol Liquid) 650 mg Q6H PRN NGT .PAIN 1-3 OR TEMP; Start 09/20/18 at 09:00 Docusate Sodium (Colace Liquid Cup) 100 mg Q12H PRN NGT .CONSTIPATION; Start 09/20/18 at 11:00 Lactobacillus Acidophilus/ Rhamnosus (Culturelle) 1 cap BID NGT Last administered on 09/24/18 08:58; Admin Dose 1 CAP; Start 09/20/18 at 09:00 Magnesium Hydroxide (Milk Of Mag) 30 ml DAILY PRN NGT .CONSTIPATION; Start 09/20/18 at 09:00 Valacyclovir HCl (Valtrex) 500 mg BID NGT Last administered on 09/24/18 11:31; Admin Dose 500 MG; Start 09/20/18 at 09:00 Zinc Sulfate (Zinc Sulfate) 220 mg DAILY NGT Last administered on 09/24/18 08:59; Admin Dose 220 MG; Start 09/20/18 at 09:00 Mupirocin (Bactroban) 1 applic BID TOP Last administered on 6/27/19at 11:29; Admin Dose 1 APPLIC; Start 09/20/18 at 11:30 Chlorhexidine Gluconate (Peridex) 15 ml BID MT Last administered on 09/24/18at 08:59; Admin Dose 15 ML; Start 09/20/18 at 14:00 Aspirin (Aspirin) 300 mg DAILY [place] Last administered on 09/24/18at 08:59; Admin Dose 300 MG; Start 09/21/18 at 20:00 Docusate Sodium (Colace Liquid Cup) 100 mg BID PO ; Start 09/24/18 at 21:00 Escitalopram Oxalate (Lexapro) 20 mg DAILY PO ; Start 09/25/18 at 09:00 Assessment/Plan Hospital Course (Demo Recall) Assessment 1. Acute hypoxemic respiratory failure likely secondary to combination of pneumonia and CHF 2. COPD with possible exacerbation currently on steroids 3. History of renal insufficiency 4. Hypernatremia 5. Encephalopathy toxic metabolic, appears to be resolving Plan 1. Continue steroids decreased to slowly 2. Continue diuretics 3. Aspiration precautions Consider halfway facility. Consider [place]. OLIVE ANDREWS MD, [facility] Sep 24, 2018 12:46
--- NOTE | 2018-09-24 13:30 | PN ---
DATE: 09/24/2018 The patient seen and was transferred from the 6th floor to the 5th floor. The patient reported sligh tly more congested today and confused per the nephew. The patient did receive 40 IV of Lasix x1 and also requested suctioning. PHYSICAL EXAMINATION: VITAL SIGNS: Temperature 97.5, pulse up to 104, respirations 22, blood pressure 151/59, saturation 9 5% on nasal cannula via 2 liters. GENERAL: Patient in no acute distress. HEENT: Some nasal oropharyngeal scabs. CARDIOVASCULAR: S1, S2. LUNGS: Rhonchi bilaterally. ABDOMEN: Soft, nontender. EXTREMITIES: Trace edema of the lower extremities. LABORATORY DATA: White count 4.2, hemoglobin 10.5, hematocrit 33, platelet count 52, neutrophils 85% lymphocytes. Chemistry: Sodium 121, potassium 4.0, 7, bicarb 29, BUN is 45, creatinine 2.05, glucose 125. Patient's respiratory culture shows yeast, not Leah albicans, but only scant. MEDICATIONS: 1. Lexapro 20 mg daily. 2. Colace 100 q.12 p.r.n. 3. Aspirin 300 p.o. daily. We can change to p.o. 4. Peridex b.i.d. 5. Bactrim 1 b.i.d. 6. Solu-Medrol 30 IV q.12. 7. Tylenol p.r.n. 8. Culturelle 1 cap b.i.d. 9. Milk of magnesia p.r.n. 10. Valtrex 5 mg b.i.d. 11. Zinc sulfate 220 daily. 12. DuoNeb every 6 hours. 13. Prevacid 30 mg b.i.d. 14. 0.8 q. 8 hours. 15. Kenalog cream b.i.d. 16. Vaseline b.i.d. 17. Multivitamin 30 mL daily. 18. Vitamin C 500 mg daily. 19. Folic acid 1 mg daily. 20. DuoNeb p.r.n. 21. Hydralazine p.r.n. 22. Heparin 5000 b.i.d. 23. Dulcolax p.r.n. 24. Ativan p.r.n. 25. Zofran p.r.n. ASSESSMENT AND PLAN: This is an unfortunate 87-year-old Thai male with history of atrial fibrill ation, hypertension, low back pain, status post respiratory failure, prolonged intubation, treated fo r pneumonia. 1. Respiratory. Currently more congested than yesterday. Lasix was given. Continue breathing jerald tment and the patient's Solu-Medrol. Follow up chest x-ray. Aggressive suctioning is recommended. Monitor for fever. Monitor for worsening leukocytosis. 2. Cardiovascular. The patient with atrial fibrillation, noted cardiology recommendation to switch aspirin to oral aspirin. May consider starting the patient on Eliquis. Will hold this until his res piratory condition is slightly more stable. 3. Anemia. Continue proton pump inhibitor. 4. Multiple wounds. Continue wound care. 5. Neurologically more confused today and this may be multiple reasons hospital versus medication in duced versus overall worsening condition. We will continue to follow closely in telemetry unit. 6. Acute renal failure, partly due to diuresis, monitor kidney function, monitor electrolytes. 7. Remains on deep venous thrombosis prophylaxis with heparin. 8. Case discussed with nephew at bedside regarding plan of care. 9. Continue stool softeners. Hold for diarrhea. 10. Physical therapy as tolerated. 11. Continue aspiration precautions and suctioning. We will follow closely. Dictated By: SERGIO CERVANTES/NEHAL Conf#: [id number] DID#: [id number]
--- NOTE | 2018-09-24 14:14 | CONS ---
Assessment/Plan Assessment/Plan Hospital Course (Demo Recall) No acute events, alert, looks comfortable Antimicrobials: Valtrex Indwelling's: Mcgowan catheter, PICC Physical examination: Well-developed well-nourished elderly man who is awake in no distress. Head atraumatic normocephalic sclera nonicteric vehicle mucosa dry neck is supple chest rise symmetrical breath sounds with bilateral rhonchi. Heart: S1-S2. Abdomen soft bowel sounds present. Assessment: 1. Acute hypoxemic respiratory failure status post extubated 2. Status post pneumonia 3. CHF 4. Bradycardia 5. Acute kidney injury 6. Mouth lesions, on empiric Valtrex , s/p short course of Zyvox 7. Staph bacteremia cw contaminant Plan: Remains stable, still at a very high risk for aspiration, continue present care, anti-aspiration precautions DW son Consultation Date/Type/Reason Admit Date/Time Aug 29, 2018 at 05:45 Initial Consult Date 08/30/18 Type of Consult id Requesting Provider: SERGIO TREVINO MD Date/Time of Note DATE: 09/24/18 TIME: 14:12 Exam/Review of Systems Exam Vitals Vital Signs Date Temp Pulse Resp B/P (MAP) Pulse Ox O2 O2 Flow FiO2 Time Delivery Rate 09/24/18 97.5 104 22 151/59 95 Nasal 11:16 (89) Cannula 09/24/18 2.0 09:58 09/22/18 21 08:05 Intake and Output 09/23/18 09/23/18 09/24/18 1515:00 23:00 07:00 IntakeIntake Total 400 ml 100 ml OutputOutput Total 400 ml 2000 ml BalanceBalance 0 ml -1900 ml Results Result Diagram: 09/24/18 0509 09/24/18 0509 Results 24hrs Laboratory Tests Test 09/24/18 05:09 White Blood Count 4.2 L Red Blood Count 3.41 L Hemoglobin 10.5 L Hematocrit 33.0 L Mean Corpuscular Volume 96.8 Mean Corpuscular Hemoglobin 30.8 Mean Corpuscular Hemoglobin Concent 31.8 L Red Cell Distribution Width 14.4 Platelet Count 252 Mean Platelet Volume 11.2 H Immature Granulocytes % 0.700 H Neutrophils % 84.8 H Lymphocytes % 8.6 L Monocytes % 5.9 Eosinophils % 0.0 Basophils % 0.0 Nucleated Red Blood Cells % 0.0 Immature Granulocytes # 0.030 Neutrophils # 3.6 Lymphocytes # 0.4 L Monocytes # 0.3 Eosinophils # 0.0 Basophils # 0.0 Nucleated Red Blood Cells # 0.0 Sodium Level 141 Potassium Level 4.0 Chloride Level 107 Carbon Dioxide Level 29 Anion Gap 5 Blood Urea Nitrogen 45 H Creatinine 2.05 H Est Glomerular Filtrat Rate mL/min Glucose Level 125 Calcium Level 7.5 L Phosphorus Level 4.3 Magnesium Level 2.0 Medications Medication Current Medications IV Flush (NS 3 ml) 3 ml PER PROTOCOL IV ; Start 08/29/18 at 06:00 Ondansetron HCl (Zofran Inj) 4 mg Q6H PRN IV NAUSEA/VOMITING Last administered on 08/31/18 05:02; Admin Dose 4 MG; Start 08/29/18 at 06:00 Lorazepam (Ativan) 0.5 mg Q6H PRN PO ANXIETY Last administered on 09/23/18 21:33; Admin Dose 0.5 MG; Start 09/02/18 at 13:00 Bisacodyl (Dulcolax Supp) 10 mg DAILY PRN [place] CONSTIPATION; Start 09/03/18 at 12:00 Heparin Sodium (Porcine) (Heparin (5000 Units/1ml)) 5,000 unit BID SC Last administered on 09/24/18 09:03; Admin Dose 5,000 UNIT; Start 09/03/18 at 14:00 Hydralazine HCl (Apresoline) 10 mg Q3 PRN IV ELEVATED SYSTOLIC BP Last administered on 09/24/18 05:30; Admin Dose 10 MG; Start 09/03/18 at 18:00 Albuterol/ Ipratropium (Duoneb) 3 ml Q2H RESP THERAPY PRN HHN SHORTNESS OF BREATH Last administered on 09/21/18 06:45; Admin Dose 3 ML; Start 09/03/18 at 20:00 Multivitamins (Multivitamin) 30 ml DAILY NGT Last administered on 09/24/18 08:59; Admin Dose 30 ML; Start 09/07/18 at 14:30 Ascorbic Acid (Vitamin C) 500 mg DAILY NGT Last administered on 09/24/18 08:59; Admin Dose 500 MG; Start 09/07/18 at 14:30 Folic Acid (Folic Acid) 1 mg DAILY NGT Last administered on 09/24/18 08:59; Admin Dose 1 MG; Start 09/07/18 at 14:30 Petrolatum (Vaseline) APPLY TO MULTIPLE SC... BID TOP Last administered on 09/24/18 08:58; Admin Dose 1 APPLIC; Start 09/08/18 at 09:00 IV Flush (NS 10 ml) 10 ml PRN PRN IV FLUSH LINE; Start 09/09/18 at 11:30 Triamcinolone Acetonide (Kenalog 0.1% Cr) 1 applic BID TOP Last administered on 09/24/18 08:58; Admin Dose 1 APPLIC; Start 09/12/18 at 14:00 Sevelamer Carbonate (Renvela) 0.8 gm Q8H NGT Last administered on 09/24/18 13:30; Admin Dose 0.8 GM; Start 09/13/18 at 12:30 Lansoprazole (Prevacid) 30 mg BID@0600,1800 NGT Last administered on 09/24/18 06:24; Admin Dose 30 MG; Start 09/15/18 at 18:00 Albuterol/ Ipratropium (Duoneb) 3 ml Q6H RESP THERAPY HHN Last administered on 09/24/18 09:55; Admin Dose 3 ML; Start 09/19/18 at 08:00 Methylprednisolone Sodium Succinate (Solu-Medrol) 30 mg Q12 IV Last administered on 09/24/18 08:59; Admin Dose 30 MG; Start 09/20/18 at 09:00 Acetaminophen (Tylenol Liquid) 650 mg Q6H PRN NGT .PAIN 1-3 OR TEMP; Start 09/20/18 at 09:00 Docusate Sodium (Colace Liquid Cup) 100 mg Q12H PRN NGT .CONSTIPATION; Start 09/20/18 at 11:00 Lactobacillus Acidophilus/ Rhamnosus (Culturelle) 1 cap BID NGT Last administered on 09/24/18 08:58; Admin Dose 1 CAP; Start 09/20/18 at 09:00 Magnesium Hydroxide (Milk Of Mag) 30 ml DAILY PRN NGT .CONSTIPATION; Start 09/20/18 at 09:00 Valacyclovir HCl (Valtrex) 500 mg BID NGT Last administered on 09/24/18 11:31; Admin Dose 500 MG; Start 09/20/18 at 09:00 Zinc Sulfate (Zinc Sulfate) 220 mg DAILY NGT Last administered on 09/24/18 08:59; Admin Dose 220 MG; Start 09/20/18 at 09:00 Mupirocin (Bactroban) 1 applic BID TOP Last administered on 09/24/18 11:29; Admin Dose 1 APPLIC; Start 09/20/18 at 11:30 Chlorhexidine Gluconate (Peridex) 15 ml BID MT Last administered on 09/24/18 08:59; Admin Dose 15 ML; Start 09/20/18 at 14:00 Aspirin (Aspirin) 300 mg DAILY [place] Last administered on 09/24/18 08:59; Admin Dose 300 MG; Start 09/21/18 at 20:00 Docusate Sodium (Colace Liquid Cup) 100 mg BID PO ; Start 09/24/18 at 21:00 Escitalopram Oxalate (Lexapro) 20 mg DAILY PO ; Start 09/25/18 at 09:00 TAYLOR RIZZO NP Sep 24, 2018 14:13
[2018-09-24] MEDS: DOCUSATE SODIUM 10 MG/ML (10ML CUP) PO SCH (20:40)
[2018-09-25] MEDS: CHLORHEXIDINE GLUCONATE 15 ML UD CUP MT SCH ×3 (00:02→21:18)
[2018-09-25] MEDS: BALSAM PERU/CASTOR OIL 60 GM TUBE TOP SCH ×3 (00:03→21:19)
[2018-09-25] MEDS: MUPIROCIN 2% 22 GM OINT TOP SCH ×3 (00:03→21:20)
[2018-09-25] MEDS: TRIAMCINOLONE ACET 0.1% 15 GM CR TOP SCH ×3 (00:03→21:19)
[2018-09-25] MEDS: ALBUTEROL/IPRATROPIUM (NEB) 3 ML AMP HHN SCH ×4 (01:31→19:30)
[2018-09-25 03:30] VITALS: BP 157/71; PULSE 88; RESP 18
[2018-09-25] MEDS: LANSOPRAZOLE 30 MG CAP NGT SCH (05:28)
[2018-09-25] MEDS: SEVELAMER CARBONATE 0.8 GM PKT NGT SCH ×2 (05:49→12:42)
[2018-09-25 07:29] VITALS: BP 165/80; PULSE 59; RESP 20
--- NOTE | 2018-09-25 08:25 | PN ---
DATE: 09/25/2018 SUBJECTIVE: The patient is stable. No events overnight, no fevers, chills, nausea, vomiting. OBJECTIVE: VITAL SIGNS: Blood pressure is 165/80, pulse 59, respirations 20, temperature 97.6. HEENT: Head is normocephalic. NECK: Supple. HEART: Regular rate. LUNGS: Show diminished breath sounds at the base. ABDOMEN: Soft, nontender to palpation. No rebound or guarding. EXTREMITIES: Negative for clubbing, cyanosis. Trace edema. DERMATOLOGIC: No rashes. MUSCULOSKELETAL: No joint effusion. NEUROLOGIC: No change in exam. MEDICATIONS: Have been reviewed. LABORATORY DATA: Has been reviewed. IMAGING STUDIES: Have been reviewed. ASSESSMENT AND PLAN: 1. Nonoliguric acute kidney injury with unknown baseline creatinine. Etiology is secondary to acute tubular necrosis, hemodynamics. Renal function is fluctuating, but overall stable. Continue curren t treatment plan, supportive care, renally dose all meds. 2. Volume overload. Etiology is multifactorial. Improving. Continue to monitor. Continue intermi ttent diuretic therapy as needed. 3. Hypernatremia, improved. 4. Anemia. Monitor hemoglobin and hematocrit levels. 5. Mineral bone disorder, monitor calcium and phosphorus levels. 6. Respiratory failure, improving. Continue nasal cannula. 7. Sepsis secondary to pneumonia. Continue current antibiotic regimen. 8. Acute encephalopathy, etiology is toxic metabolic. 9. Benign prostatic hypertrophy. 10. Diastolic heart failure. Continue current medical management. Dictated By: ANGELA ROSENTHAL/NTS Conf#: [id number] DID#: [id number] CC: SERGIO TREVINO MD;*EndCC*
[2018-09-25] MEDS: DOCUSATE SODIUM 10 MG/ML (10ML CUP) PO SCH ×2 (08:35→21:00)
[2018-09-25] MEDS: MULTIVITAMINS 30 ML CUP NGT SCH (08:35)
[2018-09-25] MEDS: LACTOBACILLUS RHAMNOSUS CAP NGT SCH (08:36)
[2018-09-25] MEDS: ZINC SULFATE 220 MG CAP NGT SCH (08:36)
[2018-09-25] MEDS: ASCORBIC ACID 500 MG TAB NGT SCH (08:36)
[2018-09-25] MEDS: valACYclovir 500 MG TAB NGT SCH (08:36)
[2018-09-25] MEDS: FOLIC ACID 1 MG TAB NGT SCH (08:36)
[2018-09-25] MEDS: ESCITALOPRAM 10 MG TAB PO SCH (08:36)
[2018-09-25] MEDS: ASPIRIN 300 MG SUPP PR SCH (08:37)
[2018-09-25] MEDS: METHYLPREDNISOLONE 40 MG INJ IV SCH (08:37)
[2018-09-25] MEDS: PETROLATUM 5 GM OINT TOP SCH ×2 (08:48→21:20)
[2018-09-25] MEDS: HEPARIN 5,000 UNIT/1 ML VIAL SC SCH ×2 (08:55→21:31)
--- NOTE | 2018-09-25 09:41 | CONS ---
Consult Date/Type/Reason Admit Date/Time Aug 29, 2018 at 05:45 Initial Consult Date 09/07/18 Type of Consultation: neph Requesting Provider: SERGIO TREVINO MD Date/Time of Note DATE: 09/25/18 TIME: 09:38 Subjective Interventional cardiology follow-up progress note Subjective: Case discussed with the staff and telemetry was reviewed. Patient has remained in AFIB but HR is under control mostly Patient is on tele no report of any chest pain or pressure no bleeding is reported O General: Elderly gentleman. no acute distress HEENT: NC/AT. pupils are equal. round. NECK: NO JVD. no stridor. CV: irregularly irregular . systolic murmur; no gallop or rubs. PULM: no wheezing + rhonchi. GI: SOFT, NT, ND, no rebound or guarding Extremity: 1+ B/L LE edema. no clubbing. neuro: awake and alert Psych: calm rectal: deferred EKG normal sinus rhythm Chest x-ray on admission showed: 1. Right basilar interstitial opacities, new from the prior examination from a few hours prior, likely reflecting atelectasis. 2. Mild prominence of the interstitial markings, may reflect mild underlying interstitial edema or chronic lung changes. 3. Mild cardiomegaly and aortic atherosclerosis. Chest x-ray done on 09/06/2018 shows: 1. Atherosclerosis of the thoracic aorta. 2. Persistent bilateral pulmonary infiltrates which could represent infection or non infection related edema or combination of the 2. 3. Endotracheal and nasogastric tubes in place. CXR . 1. Findings suggestive of pulmonary vascular congestion with small bilateral pleural effusions. Lung aeration is improved when compared to the prior examination. 2. Mild cardiomegaly and aortic atherosclerosis. 3. Right upper extremity PICC line with tip near the cavoatrial junction. CXR 09/24: Patchy bilateral pulmonary air space disease consistent with pulmonary edema or bilateral pneumonia is unchanged. The heart is enlarged. There is calcification in the aorta consistent with atherosclerosis. There are small bilateral pleural effusions. Echocardiogram done on 08/29/2018 which was personally reviewed shows: There is mild to mod enlargement of left atrium. Normal left ventricular systolic function. Normal left ventricular cavity size. Normal left ventricular wall thickness. Ejection fraction is visually estimated at 60-65 %. Normal appearance of the mitral valve. Mild mitral valve regurgitation. Normal appearance of the aortic valve. No aortic regurgitation. Normal appearance of the tricuspid valve. The estimated Peak RVSP is 53 mmHg. There is mild tricuspid regurgitation. The IVC is not well visualized. Objective Vitals Vital Signs Date Temp Pulse Resp B/P (MAP) Pulse Ox O2 O2 Flow FiO2 Time Delivery Rate 09/25/18 84 20 95 Nasal 2.0 09:02 Cannula 09/25/18 97.6 165/80 07:29 (108) 09/22/18 21 08:05 Intake and Output 09/24/18 09/24/18 09/25/18 1515:00 23:00 07:00 IntakeIntake Total 360 ml 120 ml OutputOutput Total 1 ml 1400 ml 550 ml BalanceBalance 359 ml -1280 ml -550 ml Results/Medications Result Diagram: 09/25/18 0706 09/25/18 0706 Results 24 hrs Laboratory Tests Test 09/25/18 07:06 White Blood Count 5.8 # Red Blood Count 3.48 L Hemoglobin 10.5 L Hematocrit 32.4 L Mean Corpuscular Volume 93.1 Mean Corpuscular Hemoglobin 30.2 Mean Corpuscular Hemoglobin Concent 32.4 Red Cell Distribution Width 14.7 H Platelet Count 291 Mean Platelet Volume 10.4 Immature Granulocytes % 1.200 H Neutrophils % 67.6 Lymphocytes % 13.6 L Monocytes % 17.4 H Eosinophils % 0.0 Basophils % 0.2 Nucleated Red Blood Cells % 0.0 Immature Granulocytes # 0.070 H Neutrophils # 3.9 Lymphocytes # 0.8 Monocytes # 1.0 H Eosinophils # 0.0 Basophils # 0.0 Nucleated Red Blood Cells # 0.0 Sodium Level 142 Potassium Level 3.8 Chloride Level 106 Carbon Dioxide Level 30 Anion Gap 6 Blood Urea Nitrogen 41 H Creatinine 1.80 H Est Glomerular Filtrat Rate mL/min Glucose Level 95 Calcium Level 7.6 L Phosphorus Level 4.1 Magnesium Level 1.9 Total Bilirubin 0.4 Direct Bilirubin 0.00 Indirect Bilirubin 0.4 Aspartate Amino Transf (AST/SGOT) 73 H Alanine Aminotransferase (ALT/SGPT) 162 H Alkaline Phosphatase 103 B-Type Natriuretic Peptide 67860 H Total Protein 4.8 L Albumin 2.4 L Globulin 2.40 Albumin/Globulin Ratio 1.00 Home Meds Reported Medications Losartan Potassium* (Losartan Potassium*) 50 Mg Tablet, 50 MG PO DAILY, TAB 08/29/18 Simvastatin (Simvastatin) 20 Mg Tablet, 20 MG PO QHS for 90 Days, #90 08/29/18 Furosemide* (Furosemide*) 40 Mg Tablet, 40 MG PO DAILY for 90 Days, #90 08/29/18 Potassium Chloride (K-Tab ER) 8 Meq Tablet.er, 8 MEQ PO BID for 90 Days, #180 08/29/18 Escitalopram Oxalate* (Escitalopram Oxalate*) 10 Mg Tablet, 20 MG PO DAILY for 90 Days, #90 08/29/18 Hydrocodone Bit-Acetaminophen (Hydrocodone Bit-APAP) 5-325MG Tablet, 1 TAB PO DAILY 08/29/18 Dexlansoprazole (Dexilant) 60 Mg , 60 MG PO DAILY for 90 Days, #90 08/29/18 Amiodarone Hcl* (Amiodarone Hcl*) 200 Mg Tablet, 200 MG PO DAILY for 90 Days, #90 08/29/18 Alprazolam* (Alprazolam*) 0.5 Mg Tablet, 0.5 MG PO QHS for 30 Days, #30 08/29/18 Medications Current Medications IV Flush (NS 3 ml) 3 ml PER PROTOCOL IV ; Start 08/29/18 at 06:00 Ondansetron HCl (Zofran Inj) 4 mg Q6H PRN IV NAUSEA/VOMITING Last administered on 08/31/18at 05:02; Admin Dose 4 MG; Start 08/29/18 at 06:00 Lorazepam (Ativan) 0.5 mg Q6H PRN PO ANXIETY Last administered on 09/23/18at 21:33; Admin Dose 0.5 MG; Start 09/02/18 at 13:00 Bisacodyl (Dulcolax Supp) 10 mg DAILY PRN [place] CONSTIPATION; Start 09/03/18 at 12:00 Heparin Sodium (Porcine) (Heparin (5000 Units/1ml)) 5,000 unit BID SC Last administered on 09/25/18at 08:55; Admin Dose 5,000 UNIT; Start 09/03/18 at 14:00 Hydralazine HCl (Apresoline) 10 mg Q3 PRN IV ELEVATED SYSTOLIC BP Last administered on 09/24/18at 05:30; Admin Dose 10 MG; Start 09/03/18 at 18:00 Albuterol/ Ipratropium (Duoneb) 3 ml Q2H RESP THERAPY PRN HHN SHORTNESS OF BREATH Last administered on 09/21/18 06:45; Admin Dose 3 ML; Start 09/03/18 at 20:00 Multivitamins (Multivitamin) 30 ml DAILY NGT Last administered on 09/25/18 08:35; Admin Dose 30 ML; Start 09/07/18 at 14:30 Ascorbic Acid (Vitamin C) 500 mg DAILY NGT Last administered on 09/25/18 08:36; Admin Dose 500 MG; Start 09/07/18 at 14:30 Folic Acid (Folic Acid) 1 mg DAILY NGT Last administered on 09/25/18 08:36; Admin Dose 1 MG; Start 09/07/18 at 14:30 Petrolatum (Vaseline) APPLY TO MULTIPLE SC... BID TOP Last administered on 09/25/18 08:48; Admin Dose 1 APPLIC; Start 09/08/18 at 09:00 IV Flush (NS 10 ml) 10 ml PRN PRN IV FLUSH LINE; Start 09/09/18 at 11:30 Triamcinolone Acetonide (Kenalog 0.1% Cr) 1 applic BID TOP Last administered on 09/25/18 08:47; Admin Dose 1 APPLIC; Start 09/12/18 at 14:00 Sevelamer Carbonate (Renvela) 0.8 gm Q8H NGT Last administered on 09/25/18 05:49; Admin Dose 0.8 GM; Start 09/13/18 at 12:30 Lansoprazole (Prevacid) 30 mg BID@0600,1800 NGT Last administered on 09/25/18 05:28; Admin Dose 30 MG; Start 09/15/18 at 18:00 Albuterol/ Ipratropium (Duoneb) 3 ml Q6H RESP THERAPY HHN Last administered on 09/25/18 08:59; Admin Dose 3 ML; Start 09/19/18 at 08:00 Methylprednisolone Sodium Succinate (Solu-Medrol) 30 mg Q12 IV Last administered on 09/25/18 08:37; Admin Dose 30 MG; Start 09/20/18 at 09:00 Acetaminophen (Tylenol Liquid) 650 mg Q6H PRN NGT .PAIN 1-3 OR TEMP; Start 09/20/18 at 09:00 Docusate Sodium (Colace Liquid Cup) 100 mg Q12H PRN NGT .CONSTIPATION; Start 09/20/18 at 11:00 Lactobacillus Acidophilus/ Rhamnosus (Culturelle) 1 cap BID NGT Last administered on 09/25/18 08:36; Admin Dose 1 CAP; Start 09/20/18 at 09:00 Magnesium Hydroxide (Milk Of Mag) 30 ml DAILY PRN NGT .CONSTIPATION; Start 09/20/18 at 09:00 Valacyclovir HCl (Valtrex) 500 mg BID NGT Last administered on 09/25/18 08:36; Admin Dose 500 MG; Start 09/20/18 at 09:00 Zinc Sulfate (Zinc Sulfate) 220 mg DAILY NGT Last administered on 09/25/18 08:36; Admin Dose 220 MG; Start 09/20/18 at 09:00 Mupirocin (Bactroban) 1 applic BID TOP Last administered on 09/25/18 08:47; Admin Dose 1 APPLIC; Start 09/20/18 at 11:30 Chlorhexidine Gluconate (Peridex) 15 ml BID MT Last administered on 09/25/18 08:35; Admin Dose 15 ML; Start 09/20/18 at 14:00 Aspirin (Aspirin) 300 mg DAILY MT Last administered on 09/25/18 08:37; Admin Dose 300 MG; Start 09/21/18 at 20:00 Docusate Sodium (Colace Liquid Cup) 100 mg BID PO Last administered on 09/25/18 08:35; Admin Dose 100 MG; Start 09/24/18 at 21:00 Escitalopram Oxalate (Lexapro) 20 mg DAILY PO Last administered on 09/25/18 08:36; Admin Dose 20 MG; Start 09/25/18 at 09:00 Assessment/Plan Hospital Course (Demo Recall) 1. sick sinus with Marked sinus bradycardia: NOW IN AFIB 2. Acute hypoxemic respiratory failure status post intubation on the vent 3. Pulmonary hypertension 4. History of proximal atrial fibrillation: currently has remained in normal sinus rhythm/sinus bradycardia 5. Hypertension 6. Urinary retention status post surgery 7. Pneumonia possible COPD possible ARDS 8. Acute renal failure 9. P-AFIB 10. CHF/ fluid overload 11. Dysphagia Recommendations: pt has been taken off the amiodarone given his marked bradycardia as well as his significant pulmonary disease. Continue blood pressure control. Respiratory care to be continued. Antibiotic management as per internal medicine consultants We will continue to monitor on telemetry thyroid management as per IM . TSH was normal as of 09/12/18 Antibiotic as per internal medicine consider full anticoagulation with eliquis 2.5 bid instead of ASA if /once OK WITH GI and pt is able to take po diuresis as per renal prn Thank you for his referral. We will continue to follow along with you AMANDA DUNBAR MD [facility] AMANDA DUNBAR MD Sep 25, 2018 09:41
--- NOTE | 2018-09-25 11:02 | CONS ---
Assessment/Plan Assessment/Plan Assessment/Plan (Daily) ssessment/Plan Hospital Course (Demo Recall) 87 yo male 1. Anemia with dark color stool and positive stool guaiac, most probably related to GI bleeding. -s/p EGD and colonoscopy -HH stable. 2. Renal insufficiency, which is stable. 3. Respiratory failure from the pneumonia and possible CHF. Patient's BNP is high. No wheezing heard today clinically sounds much better 4. COPD 5. Critical care myopathy. 6. Status post surgery for the prostate and suprapubic catheter. 7. Multiple wounds. 8. The patient's 2D echocardiogram shows a 65% ejection fraction. 9. Acute gastritis 10. Polyp removed in descending colon during colonoscopy 11. Dysphagia Tolerating p.o. diet pure as per the staff. As per the son patient ate well yesterday Plan Continue present care aspiration precaution Diuretic, supplemental oxygen Consultation Date/Type/Reason Admit Date/Time Aug 29, 2018 at 05:45 Initial Consult Date 09/07/18 Requesting Provider: SERGIO TREVINO MD Date/Time of Note DATE: 09/25/18 TIME: 11:01 24 HR Interval Summary Constitutional: no complaints, improved Exam/Review of Systems Exam Vitals Vital Signs Date Temp Pulse Resp B/P (MAP) Pulse Ox O2 O2 Flow FiO2 Time Delivery Rate 09/25/18 84 20 95 Nasal 2.0 09:02 Cannula 09/25/18 97.6 165/80 07:29 (108) 09/22/18 21 08:05 Intake and Output 09/24/18 09/24/18 09/25/18 1515:00 23:00 07:00 IntakeIntake Total 360 ml 120 ml OutputOutput Total 1 ml 1400 ml 550 ml BalanceBalance 359 ml -1280 ml -550 ml Constitutional: alert, oriented ENMT: nl external ears & nose, nl lips & teeth, nl nasal mucosa & septum Respiratory: diminished breath sounds Musculoskeletal: nl extremities to inspection, nl gait and stance Extremities: edema Results Result Diagram: 09/25/18 0706 09/25/18 0706 Results 24hrs Laboratory Tests Test 09/25/18 07:06 White Blood Count 5.8 # Red Blood Count 3.48 L Hemoglobin 10.5 L Hematocrit 32.4 L Mean Corpuscular Volume 93.1 Mean Corpuscular Hemoglobin 30.2 Mean Corpuscular Hemoglobin Concent 32.4 Red Cell Distribution Width 14.7 H Platelet Count 291 Mean Platelet Volume 10.4 Immature Granulocytes % 1.200 H Neutrophils % 67.6 Lymphocytes % 13.6 L Monocytes % 17.4 H Eosinophils % 0.0 Basophils % 0.2 Nucleated Red Blood Cells % 0.0 Immature Granulocytes # 0.070 H Neutrophils # 3.9 Lymphocytes # 0.8 Monocytes # 1.0 H Eosinophils # 0.0 Basophils # 0.0 Nucleated Red Blood Cells # 0.0 Sodium Level 142 Potassium Level 3.8 Chloride Level 106 Carbon Dioxide Level 30 Anion Gap 6 Blood Urea Nitrogen 41 H Creatinine 1.80 H Est Glomerular Filtrat Rate mL/min Glucose Level 95 Calcium Level 7.6 L Phosphorus Level 4.1 Magnesium Level 1.9 Total Bilirubin 0.4 Direct Bilirubin 0.00 Indirect Bilirubin 0.4 Aspartate Amino Transf (AST/SGOT) 73 H Alanine Aminotransferase (ALT/SGPT) 162 H Alkaline Phosphatase 103 B-Type Natriuretic Peptide 88109 H Total Protein 4.8 L Albumin 2.4 L Globulin 2.40 Albumin/Globulin Ratio 1.00 Medications Medication Current Medications IV Flush (NS 3 ml) 3 ml PER PROTOCOL IV ; Start 08/29/18 at 06:00 Ondansetron HCl (Zofran Inj) 4 mg Q6H PRN IV NAUSEA/VOMITING Last administered on 08/31/18at 05:02; Admin Dose 4 MG; Start 08/29/18 at 06:00 Lorazepam (Ativan) 0.5 mg Q6H PRN PO ANXIETY Last administered on 09/23/18at 21:33; Admin Dose 0.5 MG; Start 09/02/18 at 13:00 Bisacodyl (Dulcolax Supp) 10 mg DAILY PRN [place] CONSTIPATION; Start 09/03/18 at 12:00 Heparin Sodium (Porcine) (Heparin (5000 Units/1ml)) 5,000 unit BID SC Last administered on 09/25/18at 08:55; Admin Dose 5,000 UNIT; Start 09/03/18 at 14:00 Hydralazine HCl (Apresoline) 10 mg Q3 PRN IV ELEVATED SYSTOLIC BP Last administered on 09/24/18at 05:30; Admin Dose 10 MG; Start 09/03/18 at 18:00 Albuterol/ Ipratropium (Duoneb) 3 ml Q2H RESP THERAPY PRN HHN SHORTNESS OF BREATH Last administered on 09/21/18 06:45; Admin Dose 3 ML; Start 09/03/18 at 20:00 Multivitamins (Multivitamin) 30 ml DAILY NGT Last administered on 09/25/18 08:35; Admin Dose 30 ML; Start 09/07/18 at 14:30 Ascorbic Acid (Vitamin C) 500 mg DAILY NGT Last administered on 09/25/18 08:36; Admin Dose 500 MG; Start 09/07/18 at 14:30 Folic Acid (Folic Acid) 1 mg DAILY NGT Last administered on 09/25/18 08:36; Admin Dose 1 MG; Start 09/07/18 at 14:30 Petrolatum (Vaseline) APPLY TO MULTIPLE SC... BID TOP Last administered on 09/25/18 08:48; Admin Dose 1 APPLIC; Start 09/08/18 at 09:00 IV Flush (NS 10 ml) 10 ml PRN PRN IV FLUSH LINE; Start 09/09/18 at 11:30 Triamcinolone Acetonide (Kenalog 0.1% Cr) 1 applic BID TOP Last administered on 09/25/18 08:47; Admin Dose 1 APPLIC; Start 09/12/18 at 14:00 Sevelamer Carbonate (Renvela) 0.8 gm Q8H NGT Last administered on 09/25/18 05:49; Admin Dose 0.8 GM; Start 09/13/18 at 12:30 Lansoprazole (Prevacid) 30 mg BID@0600,1800 NGT Last administered on 09/25/18 05:28; Admin Dose 30 MG; Start 09/15/18 at 18:00 Albuterol/ Ipratropium (Duoneb) 3 ml Q6H RESP THERAPY HHN Last administered on 09/25/18 08:59; Admin Dose 3 ML; Start 09/19/18 at 08:00 Methylprednisolone Sodium Succinate (Solu-Medrol) 30 mg Q12 IV Last administere d on 09/25/18 08:37; Admin Dose 30 MG; Start 09/20/18 at 09:00 Acetaminophen (Tylenol Liquid) 650 mg Q6H PRN NGT .PAIN 1-3 OR TEMP; Start 09/20/18 at 09:00 Docusate Sodium (Colace Liquid Cup) 100 mg Q12H PRN NGT .CONSTIPATION; Start 09/20/18 at 11:00 Lactobacillus Acidophilus/ Rhamnosus (Culturelle) 1 cap BID NGT Last administered on 09/25/18 08:36; Admin Dose 1 CAP; Start 09/20/18 at 09:00 Magnesium Hydroxide (Milk Of Mag) 30 ml DAILY PRN NGT .CONSTIPATION; Start 09/20/18 at 09:00 Valacyclovir HCl (Valtrex) 500 mg BID NGT Last administered on 09/25/18 08:36; Admin Dose 500 MG; Start 09/20/18 at 09:00 Zinc Sulfate (Zinc Sulfate) 220 mg DAILY NGT Last administered on 09/25/18 08:36; Admin Dose 220 MG; Start 09/20/18 at 09:00 Mupirocin (Bactroban) 1 applic BID TOP Last administered on 09/25/18 08:47; Admin Dose 1 APPLIC; Start 09/20/18 at 11:30 Chlorhexidine Gluconate (Peridex) 15 ml BID MT Last administered on 09/25/18 08:35; Admin Dose 15 ML; Start 09/20/18 at 14:00 Aspirin (Aspirin) 300 mg DAILY GA Last administered on 09/25/18 08:37; Admin Dose 300 MG; Start 09/21/18 at 20:00 Docusate Sodium (Colace Liquid Cup) 100 mg BID PO Last administered on 09/25/18 08:35; Admin Dose 100 MG; Start 09/24/18 at 21:00 Escitalopram Oxalate (Lexapro) 20 mg DAILY PO Last administered on 09/25/18 08:36; Admin Dose 20 MG; Start 09/25/18 at 09:00 TOOTIE HERNANDEZ MD Sep 25, 2018 11:02
[2018-09-25 11:06] VITALS: BP 167/91; PULSE 94; RESP 22
[2018-09-25] MEDS ORDERED: ACETAMINOPHEN 325 MG TAB PO PRN (13:00)
[2018-09-25] MEDS ORDERED: MAGNESIUM HYDROXIDE 30ML CUP PO PRN (13:00)
--- NOTE | 2018-09-25 15:07 | CONS ---
Assessment/Plan Assessment/Plan Hospital Course (Demo Recall) No acute events, alert, looks comfortable, no fevers Antimicrobials: Valtrex Indwelling's: Mcgowan catheter, PICC Physical examination: Well-developed well-nourished elderly man who is awake in no distress. Head atraumatic normocephalic sclera nonicteric vehicle mucosa dry neck is supple chest rise symmetrical breath sounds with bilateral rhonchi. Heart: S1-S2. Abdomen soft bowel sounds present. Assessment: 1. S/p acute hypoxemic respiratory failure===>extubated 2. Status post pneumonia 3. CHF 4. Bradycardia 5. Acute kidney injury 6. Mouth lesions, on empiric Valtrex , s/p short course of Zyvox 7. Staph bacteremia cw contaminant Plan: Remains stable, continue present care, anti-aspiration precautions DW /pt Consultation Date/Type/Reason Admit Date/Time Aug 29, 2018 at 05:45 Initial Consult Date 08/30/18 Type of Consult id Requesting Provider: SERGIO TREVINO MD Date/Time of Note DATE: 09/25/18 TIME: 15:05 Exam/Review of Systems Exam Vitals Vital Signs Date Temp Pulse Resp B/P (MAP) Pulse Ox O2 O2 Flow FiO2 Time Delivery Rate 09/25/18 82 20 Nasal 2.0 14:24 Cannula 09/25/18 97.6 167/91 95 11:06 (116) 09/22/18 21 08:05 Intake and Output 09/24/18 09/24/18 09/25/18 1515:00 23:00 07:00 IntakeIntake Total 360 ml 120 ml OutputOutput Total 1 ml 1400 ml 550 ml BalanceBalance 359 ml -1280 ml -550 ml Results Result Diagram: 09/25/18 0706 09/25/18 0706 Results 24hrs Laboratory Tests Test 09/25/18 07:06 White Blood Count 5.8 # Red Blood Count 3.48 L Hemoglobin 10.5 L Hematocrit 32.4 L Mean Corpuscular Volume 93.1 Mean Corpuscular Hemoglobin 30.2 Mean Corpuscular Hemoglobin Concent 32.4 Red Cell Distribution Width 14.7 H Platelet Count 291 Mean Platelet Volume 10.4 Immature Granulocytes % 1.200 H Neutrophils % 67.6 Lymphocytes % 13.6 L Monocytes % 17.4 H Eosinophils % 0.0 Basophils % 0.2 Nucleated Red Blood Cells % 0.0 Immature Granulocytes # 0.070 H Neutrophils # 3.9 Lymphocytes # 0.8 Monocytes # 1.0 H Eosinophils # 0.0 Basophils # 0.0 Nucleated Red Blood Cells # 0.0 Sodium Level 142 Potassium Level 3.8 Chloride Level 106 Carbon Dioxide Level 30 Anion Gap 6 Blood Urea Nitrogen 41 H Creatinine 1.80 H Est Glomerular Filtrat Rate mL/min Glucose Level 95 Calcium Level 7.6 L Phosphorus Level 4.1 Magnesium Level 1.9 Total Bilirubin 0.4 Direct Bilirubin 0.00 Indirect Bilirubin 0.4 Aspartate Amino Transf (AST/SGOT) 73 H Alanine Aminotransferase (ALT/SGPT) 162 H Alkaline Phosphatase 103 B-Type Natriuretic Peptide 88044 H Total Protein 4.8 L Albumin 2.4 L Globulin 2.40 Albumin/Globulin Ratio 1.00 Medications Medication Current Medications IV Flush (NS 3 ml) 3 ml PER PROTOCOL IV ; Start 08/29/18 at 06:00 Ondansetron HCl (Zofran Inj) 4 mg Q6H PRN IV NAUSEA/VOMITING Last administered on 08/31/18at 05:02; Admin Dose 4 MG; Start 08/29/18 at 06:00 Lorazepam (Ativan) 0.5 mg Q6H PRN PO ANXIETY Last administered on 09/23/18at 21:33; Admin Dose 0.5 MG; Start 09/02/18 at 13:00 Bisacodyl (Dulcolax Supp) 10 mg DAILY PRN [place] CONSTIPATION; Start 09/03/18 at 12:00 Heparin Sodium (Porcine) (Heparin (5000 Units/1ml)) 5,000 unit BID SC Last ad ministered on 09/25/18at 08:55; Admin Dose 5,000 UNIT; Start 09/03/18 at 14:00 Hydralazine HCl (Apresoline) 10 mg Q3 PRN IV ELEVATED SYSTOLIC BP Last administered on 09/24/18at 05:30; Admin Dose 10 MG; Start 09/03/18 at 18:00 Albuterol/ Ipratropium (Duoneb) 3 ml Q2H RESP THERAPY PRN HHN SHORTNESS OF B REATH Last administered on 09/21/18at 06:45; Admin Dose 3 ML; Start 09/03/18 at 20:00 Multivitamins (Multivitamin) 30 ml DAILY NGT Last administered on 09/25/18 08:35; Admin Dose 30 ML; Start 09/07/18 at 14:30 Ascorbic Acid (Vitamin C) 500 mg DAILY NGT Last administered on 09/25/18 08:36; Admin Dose 500 MG; Start 09/07/18 at 14:30 Petrolatum (Vaseline) APPLY TO MULTIPLE SC... BID TOP Last administered on 09/25/18 08:48; Admin Dose 1 APPLIC; Start 09/08/18 at 09:00 IV Flush (NS 10 ml) 10 ml PRN PRN IV FLUSH LINE; Start 09/09/18 at 11:30 Triamcinolone Acetonide (Kenalog 0.1% Cr) 1 applic BID TOP Last administered on 09/25/18 08:47; Admin Dose 1 APPLIC; Start 09/12/18 at 14:00 Albuterol/ Ipratropium (Duoneb) 3 ml Q6H RESP THERAPY HHN Last administered on 09/25/18 14:20; Admin Dose 3 ML; Start 09/19/18 at 08:00 Mupirocin (Bactroban) 1 applic BID TOP Last administered on 09/25/18 08:47; Admin Dose 1 APPLIC; Start 09/20/18 at 11:30 Chlorhexidine Gluconate (Peridex) 15 ml BID MT Last administered on 09/25/18 08:35; Admin Dose 15 ML; Start 09/20/18 at 14:00 Docusate Sodium (Colace Liquid Cup) 100 mg BID PO Last administered on 09/25/18 08:35; Admin Dose 100 MG; Start 09/24/18 at 21:00 Escitalopram Oxalate (Lexapro) 20 mg DAILY PO Last administered on 09/25/18 08:36; Admin Dose 20 MG; Start 09/25/18 at 09:00 Acetaminophen (Tylenol Tab) 650 mg Q6H PRN PO .PAIN 1-3 OR TEMP; Start 09/25/18 at 13:00 Docusate Sodium (Colace Liquid Cup) 100 mg Q12H PRN PO .CONSTIPATION; Start 09/25/18 at 23:00 Folic Acid (Folic Acid) 1 mg DAILY PO ; Start 09/26/18 at 09:00 Lactobacillus Acidophilus/ Rhamnosus (Culturelle) 1 cap BID PO ; Start 09/25/18 at 21:00 Magnesium Hydroxide (Milk Of Mag) 30 ml DAILY PRN PO .CONSTIPATION; Start 09/25/18 at 13:00 Valacyclovir HCl (Valtrex) 500 mg BID PO ; Start 09/25/18 at 21:00 Zinc Sulfate (Zinc Sulfate) 220 mg DAILY PO ; Start 09/26/18 at 09:00 Pantoprazole (Protonix Tab) 40 mg BID@0600,1800 PO ; Start 09/25/18 at 18:00 Sevelamer Carbonate (Renvela) 800 mg WITH MEALS PO ; Start 09/25/18 at 17:55 Methylprednisolone Sodium Succinate (Solu-Medrol) 30 mg DAILY IV ; Start 09/26/18 at 09:00 Aspirin (Halfprin) 81 mg DAILY PO ; Start 09/26/18 at 09:00 TAYLOR RIZZO NP Sep 25, 2018 15:07
--- NOTE | 2018-09-25 15:13 | CONS ---
Consult Date/Type/Reason Admit Date/Time Aug 29, 2018 at 05:45 Initial Consult Date 08/30/18 Type of Consult Pulmonary Requesting Provider: SERGIO TREVINO MD Date/Time of Note DATE: 09/25/18 TIME: 15:12 Subjective Patient is comfortable this morning. Objective Vital Signs Date Temp Pulse Resp B/P (MAP) Pulse Ox O2 O2 Flow FiO2 Time Delivery Rate 09/25/18 82 20 Nasal 2.0 14:24 Cannula 09/25/18 97.6 167/91 95 11:06 (116) 09/22/18 21 08:05 Intake and Output 09/24/18 09/24/18 09/25/18 1515:00 23:00 07:00 IntakeIntake Total 360 ml 120 ml OutputOutput Total 1 ml 1400 ml 550 ml BalanceBalance 359 ml -1280 ml -550 ml Exam GENERAL: Elderly gentleman appears comfortable at rest no acute distress VITAL SIGNS: per chart NECK: Supple. No JVD or lymphadenopathy. CARDIAC EXAM: S1, S2. No added sounds or murmurs. CHEST: Diminished air entry bilaterally with few expiratory wheezes ABDOMEN: Soft, nontender. No guarding or rebound. EXTREMITIES: No cyanosis, clubbing edema +1 NEUROLOGIC: Generalized weakness. No focal deficits Vent Setting Ventilator Support Mode: CPAP Fraction of Inspired Oxygen pe: 21 Positive End Expiratory Pressu: 5.0 Results/Medications Result Diagram: 09/25/18 0706 09/25/18 0706 Results 24 hrs Laboratory Tests Test 09/25/18 07:06 White Blood Count 5.8 # Red Blood Count 3.48 L Hemoglobin 10.5 L Hematocrit 32.4 L Mean Corpuscular Volume 93.1 Mean Corpuscular Hemoglobin 30.2 Mean Corpuscular Hemoglobin Concent 32.4 Red Cell Distribution Width 14.7 H Platelet Count 291 Mean Platelet Volume 10.4 Immature Granulocytes % 1.200 H Neutrophils % 67.6 Lymphocytes % 13.6 L Monocytes % 17.4 H Eosinophils % 0.0 Basophils % 0.2 Nucleated Red Blood Cells % 0.0 Immature Granulocytes # 0.070 H Neutrophils # 3.9 Lymphocytes # 0.8 Monocytes # 1.0 H Eosinophils # 0.0 Basophils # 0.0 Nucleated Red Blood Cells # 0.0 Sodium Level 142 Potassium Level 3.8 Chloride Level 106 Carbon Dioxide Level 30 Anion Gap 6 Blood Urea Nitrogen 41 H Creatinine 1.80 H Est Glomerular Filtrat Rate mL/min Glucose Level 95 Calcium Level 7.6 L Phosphorus Level 4.1 Magnesium Level 1.9 Total Bilirubin 0.4 Direct Bilirubin 0.00 Indirect Bilirubin 0.4 Aspartate Amino Transf (AST/SGOT) 73 H Alanine Aminotransferase (ALT/SGPT) 162 H Alkaline Phosphatase 103 B-Type Natriuretic Peptide 05388 H Total Protein 4.8 L Albumin 2.4 L Globulin 2.40 Albumin/Globulin Ratio 1.00 Medications Current Medications IV Flush (NS 3 ml) 3 ml PER PROTOCOL IV ; Start 08/29/18 at 06:00 Ondansetron HCl (Zofran Inj) 4 mg Q6H PRN IV NAUSEA/VOMITING Last administered on 08/31/18 05:02; Admin Dose 4 MG; Start 08/29/18 at 06:00 Lorazepam (Ativan) 0.5 mg Q6H PRN PO ANXIETY Last administered on 09/23/18at 21:33; Admin Dose 0.5 MG; Start 09/02/18 at 13:00 Bisacodyl (Dulcolax Supp) 10 mg DAILY PRN [place] CONSTIPATION; Start 09/03/18 at 12:00 Heparin Sodium (Porcine) (Heparin (5000 Units/1ml)) 5,000 unit BID SC Last administered on 09/25/18 08:55; Admin Dose 5,000 UNIT; Start 09/03/18 at 14:00 Hydralazine HCl (Apresoline) 10 mg Q3 PRN IV ELEVATED SYSTOLIC BP Last administered on 09/24/18 05:30; Admin Dose 10 MG; Start 09/03/18 at 18:00 Albuterol/ Ipratropium (Duoneb) 3 ml Q2H RESP THERAPY PRN HHN SHORTNESS OF MARK TH Last administered on 09/21/18 06:45; Admin Dose 3 ML; Start 09/03/18 at 20:00 Multivitamins (Multivitamin) 30 ml DAILY NGT Last administered on 09/25/18 08:35; Admin Dose 30 ML; Start 09/07/18 at 14:30 Ascorbic Acid (Vitamin C) 500 mg DAILY NGT Last administered on 09/25/18 08:36; Admin Dose 500 MG; Start 09/07/18 at 14:30 Petrolatum (Vaseline) APPLY TO MULTIPLE SC... BID TOP Last administered on 09/25/18 08:48; Admin Dose 1 APPLIC; Start 09/08/18 at 09:00 IV Flush (NS 10 ml) 10 ml PRN PRN IV FLUSH LINE; Start 09/09/18 at 11:30 Triamcinolone Acetonide (Kenalog 0.1% Cr) 1 applic BID TOP Last administered on 09/25/18 08:47; Admin Dose 1 APPLIC; Start 09/12/18 at 14:00 Albuterol/ Ipratropium (Duoneb) 3 ml Q6H RESP THERAPY HHN Last administered on 09/25/18 14:20; Admin Dose 3 ML; Start 09/19/18 at 08:00 Mupirocin (Bactroban) 1 applic BID TOP Last administered on 09/25/18 08:47; Admin Dose 1 APPLIC; Start 09/20/18 at 11:30 Chlorhexidine Gluconate (Peridex) 15 ml BID MT Last administered on 09/25/18 08:35; Admin Dose 15 ML; Start 09/20/18 at 14:00 Docusate Sodium (Colace Liquid Cup) 100 mg BID PO Last administered on 09/25/18 08:35; Admin Dose 100 MG; Start 09/24/18 at 21:00 Escitalopram Oxalate (Lexapro) 20 mg DAILY PO Last administered on 09/25/18at 08:36; Admin Dose 20 MG; Start 09/25/18 at 09:00 Acetaminophen (Tylenol Tab) 650 mg Q6H PRN PO .PAIN 1-3 OR TEMP; Start 09/25/18 at 13:00 Docusate Sodium (Colace Liquid Cup) 100 mg Q12H PRN PO .CONSTIPATION; Start 09/25/18 at 23:00 Folic Acid (Folic Acid) 1 mg DAILY PO ; Start 09/26/18 at 09:00 Lactobacillus Acidophilus/ Rhamnosus (Culturelle) 1 cap BID PO ; Start 09/25/18 at 21:00 Magnesium Hydroxide (Milk Of Mag) 30 ml DAILY PRN PO .CONSTIPATION; Start 09/25/18 at 13:00 Valacyclovir HCl (Valtrex) 500 mg BID PO ; Start 09/25/18 at 21:00 Zinc Sulfate (Zinc Sulfate) 220 mg DAILY PO ; Start 09/26/18 at 09:00 Pantoprazole (Protonix Tab) 40 mg BID@0600,1800 PO ; Start 09/25/18 at 18:00 Sevelamer Carbonate (Renvela) 800 mg WITH MEALS PO ; Start 09/25/18 at 17:55 Methylprednisolone Sodium Succinate (Solu-Medrol) 30 mg DAILY IV ; Start 09/26/18 at 09:00 Aspirin (Halfprin) 81 mg DAILY PO ; Start 09/26/18 at 09:00 Assessment/Plan Hospital Course (Demo Recall) Assessment 1. Acute hypoxemic respiratory failure likely secondary to combination of pneumonia and CHF 2. COPD with possible exacerbation currently on steroids 3. History of renal insufficiency 4. Hypernatremia 5. Encephalopathy toxic metabolic, appears to be resolving Plan 1. Continue steroids decreased to slowly 2. Continue diuretics 3. Aspiration precautions [facility]REWS [facility] Sep 25, 2018 15:13
[2018-09-25 15:23] VITALS: BP 161/72; PULSE 95; RESP 22
--- NOTE | 2018-09-25 15:23 | PN ---
DATE: 09/25/2018 SUBJECTIVE: Patient seen. Unfortunately, remains congested. Currently on pureed diet, thickened li quid, but when he has liquids, he does cough. Overall, his pulmonary condition remains extraneous. VITAL SIGNS: Temperature 97.6, pulse 94, respirations 22, blood pressure 167/91, saturation 95%. GENERAL: The patient is in no acute distress, very frail, but alert. CARDIOVASCULAR: Positive S1, S2. LUNGS: Bilateral mild to moderate rhonchi bilaterally. ABDOMEN: Soft, nontender. EXTREMITIES: Trace edema of the legs. LABORATORIES: Sodium 142, potassium 3.8, chloride 106, bicarbonate 30, BUN is 41, creatinine 0.8, gl ucose of 95, AST 73, ALT 163 elevated, alkaline phosphatase 103. BNP is 13,800. White count 5.8, he moglobin 10.4, hematocrit 32, platelet count of 291, neutrophils 68%, lymphocytes 14%. Bacterial men ingitis antigen panel was not detected. Mycoplasma pneumonia negative. Last sputum culture showed y east, not Leah albicans. MEDICATIONS: 1. Folic acid 1 mg daily. 2. Zinc sulfate 20 daily. 3. Colace 100 p.r.n. 4. Culturelle b.i.d. 5. Valtrex 500 b.i.d. 6. Protonix 40 mg b.i.d. 7. Renvela 800 with meals. 8. Tylenol p.r.n. 9. Milk of magnesia p.r.n. 10. Lexapro 10 mg daily. 11. Colace 200 b.i.d. 12. Aspirin 81 mg daily. 13. 300 mg p.o. daily 14. Peridex b.i.d. 15. Bactroban ointment b.i.d. 16. Solu-Medrol 20 IV q.12h. 17. DuoNeb every 6 hours. 18. Kenalog cream b.i.d. 19. Vaseline. 20. Multivitamin. 21. Vitamin C. 22. DuoNeb as directed. 23. . 24. Heparin. 25. Dulcolax. 26. Ativan. 27. Zofran p.r.n. ASSESSMENT AND PLAN: This 87-year-old Nepalese male with history of atrial fibrillation, hypertensio n, low back pain, status post respiratory failure, prolonged intubation, treated for multifocal pneum onia. 1. Respiratory. Status was treated for pneumonia. Remains congested which may be due to aspiration versus fluid overload state versus ongoing pneumonitis. Continue aggressive suctioning. Titrate st eroids down. Continue breathing treatment, monitor. May consider transfer [facility] [place] for ongoing pulmonary care. 2. Cardiovascular. The patient with atrial fibrillation. Change rectal aspirin to oral aspirin. M ay consider Eliquis soon as patient has history of atrial fibrillation. Vitals are otherwise stable. 3. Anemia. Continue proton pump inhibitor. No active bleeding is noted. 4. Multiple wounds. Continue wound care. 5. Infectious disease. Now off antibiotics. Sputum culture does show Leah, not albicans. 6. Further treatment per ID. 7. Neurologically confused may be due to Solu-Medrol which we will titrate down. 8. Renal insufficiency. Observe. Likely due partly to diuresis. 9. Continue deep vein thrombosis prophylaxis and gastrointestinal prophylaxis. 10. Physical therapy as tolerated. 11. Continue aspiration precautions and speech therapy. FOLLOWUP: The patient is high risk of aspiration. Again, will ask case managers to consider possible transfer to [facility] as his pulmonary condition remains very guarded. We will follow. Dictated By: SERGIO CERVANTES/NEHAL Conf#: [id number] DID#: [id number]
[2018-09-25] MEDS: PANTOPRAZOLE (EC) 40 MG TAB PO SCH (17:54)
[2018-09-25] MEDS: SEVELAMER CARBONATE 800 MG TABLET PO SCH (17:54)
[2018-09-25] MEDS ORDERED: LANSOPRAZOLE 30 MG CAP PO SCH (18:00)
[2018-09-25] MEDS: DEXTROSE 5%-0.45% NACL 1,000 ML IV SCH (18:00)
[2018-09-25 19:31] VITALS: BP 167/84; PULSE 96; RESP 23
[2018-09-25] MEDS ORDERED: SEVELAMER CARBONATE 0.8 GM PKT PO SCH (20:30)
[2018-09-25] MEDS ORDERED: LORAZEPAM 2 MG INJ IV PRN (21:00)
[2018-09-25] MEDS: LACTOBACILLUS RHAMNOSUS CAP PO SCH (21:00)
[2018-09-25] MEDS: valACYclovir 500 MG TAB PO SCH (21:00)
[2018-09-25] MEDS ORDERED: DOCUSATE SODIUM 10 MG/ML (10ML CUP) PO PRN (23:00)
[2018-09-25 23:32] VITALS: BP 161/81; PULSE 91; RESP 21
[2018-09-26] MEDS: ALBUTEROL/IPRATROPIUM (NEB) 3 ML AMP HHN SCH ×5 (02:24→21:47)
[2018-09-26 03:33] VITALS: BP 159/83; PULSE 93; RESP 23
[2018-09-26] MEDS: PANTOPRAZOLE (EC) 40 MG TAB PO SCH ×2 (05:37→18:10)
[2018-09-26 07:32] VITALS: BP 171/81; PULSE 87; RESP 19
[2018-09-26] MEDS: SEVELAMER CARBONATE 800 MG TABLET PO SCH ×3 (07:39→18:10)
[2018-09-26] MEDS: hydrALAzine 20 MG INJ IV PRN (08:26)
[2018-09-26] MEDS: METHYLPREDNISOLONE 40 MG INJ IV SCH (08:27)
[2018-09-26] MEDS: HEPARIN 5,000 UNIT/1 ML VIAL SC SCH ×2 (08:32→22:09)
--- NOTE | 2018-09-26 08:32 | PN ---
DATE: 09/26/2018 SUBJECTIVE: The patient is stable, no events overnight. OBJECTIVE: VITAL SIGNS: Blood pressure is 171/81, pulse 87, respirations 19, temperature 98.1. HEENT: Head is normocephalic. NECK: Supple. HEART: Regular rate. LUNGS: Show diminished breath sounds at the base. ABDOMEN: Soft, nontender to palpation without rebound or guarding. EXTREMITIES: Negative for clubbing, cyanosis. Trace edema. DERMATOLOGIC: No rashes. MUSCULOSKELETAL: No joint effusion. NEUROLOGIC: No change in exam. MEDICATIONS: Reviewed. LABORATORY DATA: Reviewed. IMAGING STUDIES: Reviewed. ASSESSMENT AND PLAN: 1. Nonoliguric acute kidney injury with unknown baseline creatinine. Etiology of acute kidney injur y is secondary to acute tubular necrosis, hemodynamics. The patient's renal function has been fluctu ating, but overall stable. We will continue current treatment plans, supportive care, renally dose a ll medications. 2. Volume overload, improved. Continue to monitor closely. The patient is on IV fluids. We may gi ve intermittent diuretic therapy as needed. 3. Hypernatremia, improved. 4. Anemia. Continue to monitor hemoglobin and hematocrit levels. 5. Mineral bone disorder. Monitor calcium and phosphorus levels. 6. Respiratory failure, stable. Continue nasal cannula. 7. Sepsis secondary to pneumonia. Continue current antibiotic regimen. 8. Acute encephalopathy, etiology is toxic metabolic. 9. Benign prostatic hypertrophy. 10. History of diastolic heart failure. Continue medical management. 11. Nutrition. The patient is at high risk for aspiration. Currently n.p.o. Continue to monitor. Dictated By: ANGELA ROSENTHAL/NEHAL Conf#: [id number] DID#: [id number] CC: SERGIO TREVINO MD; OLIVE ANDREWS MD;*EndCC*
[2018-09-26] MEDS: ZINC SULFATE 220 MG CAP PO SCH (09:00)
[2018-09-26] MEDS: DOCUSATE SODIUM 10 MG/ML (10ML CUP) PO SCH ×3 (09:00→21:18)
[2018-09-26] MEDS: ASPIRIN (EC) 81 MG TAB PO SCH (09:00)
[2018-09-26] MEDS: FOLIC ACID 1 MG TAB PO SCH (09:00)
[2018-09-26] MEDS: MULTIVITAMINS 30 ML CUP NGT SCH (09:00)
[2018-09-26] MEDS: ESCITALOPRAM 10 MG TAB PO SCH (09:00)
[2018-09-26] MEDS: CHLORHEXIDINE GLUCONATE 15 ML UD CUP MT SCH ×2 (09:00→21:18)
[2018-09-26] MEDS: valACYclovir 500 MG TAB PO SCH ×2 (09:00→21:18)
[2018-09-26] MEDS: MUPIROCIN 2% 22 GM OINT TOP SCH ×2 (09:00→21:20)
[2018-09-26] MEDS: ASCORBIC ACID 500 MG TAB NGT SCH (09:00)
[2018-09-26] MEDS: LACTOBACILLUS RHAMNOSUS CAP PO SCH ×2 (09:00→21:18)
[2018-09-26] MEDS: FUROSEMIDE 40 MG INJ IV SCH (09:58)
[2018-09-26] MEDS: TRIAMCINOLONE ACET 0.1% 15 GM CR TOP SCH ×2 (10:00→21:19)
[2018-09-26] MEDS: BALSAM PERU/CASTOR OIL 60 GM TUBE TOP SCH ×2 (10:00→21:19)
[2018-09-26] MEDS: PETROLATUM 5 GM OINT TOP SCH ×2 (10:00→21:18)
--- NOTE | 2018-09-26 10:26 | PN ---
DATE: 09/26/2018 SUBJECTIVE: The patient unfortunately with increased tachypnea and wheezing. The patient does take his nasal cannula off frequently. We did keep him n.p.o. because of risk of aspiration. PHYSICAL EXAMINATION: VITAL SIGNS: Temperature is 98.1, pulse 82, respirations 20, blood pressure 171/81, saturation 95% o n 2 liters. GENERAL: The patient is in mild distress, as he is tachypneic. Mouth is open. I suctioned him, not much suctioned. CARDIOVASCULAR: S1, S2, regular rate. LUNGS: Diffuse wheezing, moderate. The patient is tachypneic. ABDOMEN: Soft, nontender. EXTREMITIES: +1 edema. LABORATORY DATA: White count 8.3, hemoglobin 11.2, hematocrit 35, platelet count 377. Chemistry: S odium 142, potassium 3.7, chloride 107, bicarbonate 31, BUN is 41, creatinine 0.89, glucose of 90. R espiratory culture on 6 liters just shows normal respiratory norma with yeast, not Leah albicans. Chest x-ray was just ordered. MEDICATIONS: 1. DuoNeb q.6 hours, they changed it to q.4 hours. 1. Lasix 40 IV daily. I just started it, first dose now. 2. Folic acid 1 mg daily. 3. Zinc sulfate 220 mg daily. 4. Solu-Medrol 10 mg IV daily. 5. Aspirin 81 daily. 6. Colace 100 p.r.n. 7. Culturelle 1 cap b.i.d. 8. Valtrex 500 b.i.d. 9. Ativan p.r.n. 10. Protonix 40 mg b.i.d. 11. Renvela 800 with meals. 12. D5 half normal 40 mL. The patient is n.p.o. 13. Tylenol p.r.n. 14. ____ p.r.n. 15. Lexapro 20 mg daily. 16. Colace 100 b.i.d. 17. Peridex b.i.d. 18. Bactroban ointment b.i.d. 19. Kenalog ointment b.i.d. 20. Vaseline b.i.d. 21. Multivitamin 1 tab daily. 22. Vitamin C 500 mg daily. 23. Hydralazine 10 mg IV q.3 hours p.r.n. 24. Heparin 5000 subQ q.12. 25. Bisacodyl as directed. 26. Ativan as directed. 27. Zofran as directed. ASSESSMENT AND PLAN: This is an unfortunate 87-year-old [place]ian male with history of atrial fibrill ation, hypertension, low back pain, status post respiratory failure with prolonged intubation, now ex tubated but still in respiratory distress. 1. Respiratory. The patient with increased tachypnea. Differential diagnosis may include aspiratio n, reactive airway disease, etc. We will obtain an ABG, chest x-ray and provide him with 40 IV of La six now. We will keep him n.p.o. as high risk of aspiration in this respiratory situation. May need to be placed on BiPAP and transferred back to the ICU. 2. Cardiovascular. The patient with atrial fibrillation, anticoagulation with aspirin and heparin f or deep venous thrombosis prophylaxis, currently on hydralazine p.r.n. for elevated blood pressure. We would like to place an NG tube so patient can receive his meds and start on feeding, which would b e more safe. The patient possibly needs to be placed in restraints. 3. Anemia. Monitor hemoglobin and hematocrit. No need for transfusion. 4. Acute renal failure, partly due to diuretics administration. 5. Malnutrition as the patient has not been eating for prolonged period of time, on and off. The chalo arauz was intubated recently, extubated and now has severe dysphagia. NG-tube may be beneficial or m aybe even a G-tube. 6. Infectious disease. Currently off antibiotics. Check procalcitonin since elevated, will start t he patient on broad-spectrum antibiotics. 7. Neurologically very weak. Observe. Otherwise, alert. 8. Physical therapy once more stable. 9. Poorly remains in the telemetry unit. Again, will follow up with the above tests and see how he does. Again, may need to transfer him back to the ICU. Condition remains guarded. Case discussed with nursing staff. We will follow. Dictated By: SERGIO CERVANTES/NEHAL Conf#: [id number] DID#: [id number]
--- NOTE | 2018-09-26 10:49 | CONS ---
Assessment/Plan Assessment/Plan Assessment/Plan (Daily) ssessment/Plan Hospital Course (Demo Recall) 87 yo male 1. Anemia with dark color stool and positive stool guaiac, most probably related to GI bleeding. -s/p EGD and colonoscopy -HH stable. 2. Renal insufficiency, which is stable. 3. Respiratory failure from the pneumonia and possible CHF. Patient might be aspirating also 4. COPD 5. Critical care myopathy. 6. Status post surgery for the prostate and suprapubic catheter. 7. Multiple wounds. 8. The patient's 2D echocardiogram shows a 65% ejection fraction. 9. Acute gastritis 10. Polyp removed in descending colon during colonoscopy 11. Dysphagia Tolerating p.o. diet pure as per the staff. As per the son patient ate well yesterday Plan Continue present care aspiration precaution Diuretic, supplemental oxygen Strict n.p.o. NG tube feeding Patient would definitely benefit from PEG once he is more stable and need rehabilitation of muscles for dysphagia Consultation Date/Type/Reason Admit Date/Time Aug 29, 2018 at 05:45 Initial Consult Date 09/07/18 Requesting Provider: SERGIO TREVINO MD Date/Time of Note DATE: 09/26/18 TIME: 10:47 24 HR Interval Summary Free Text/Dictation Patient is short of breath even at rest and he is lethargic Subjective hx not possible: pt critical Exam/Review of Systems Exam Vitals Vital Signs Date Temp Pulse Resp B/P (MAP) Pulse Ox O2 O2 Flow FiO2 Time Delivery Rate 09/26/18 83 20 95 Nasal 2.0 08:17 Cannula 09/26/18 98.1 171/81 07:32 (111) 09/22/18 21 08:05 Intake and Output 09/25/18 09/25/18 09/26/18 1515:00 23:00 07:00 IntakeIntake Total 240 ml 240 ml OutputOutput Total 500 ml 450 ml BalanceBalance 240 ml -500 ml -210 ml Respiratory: diminished breath sounds, labored breathing, wheezing Gastrointestinal: nl liver, spleen Extremities: edema Results Result Diagram: 09/26/1825 09/26/18 0725 Results 24hrs Laboratory Tests Test 09/26/18 07:25 09/26/18 09:50 White Blood Count 8.3 # Red Blood Count 3.66 L Hemoglobin 11.2 L Hematocrit 34.6 L Mean Corpuscular Volume 94.5 Mean Corpuscular Hemoglobin 30.6 Mean Corpuscular Hemoglobin Concent 32.4 Red Cell Distribution Width 14.9 H Platelet Count 377 # Mean Platelet Volume 10.7 H Immature Granulocytes % 5.300 H Neutrophils % Segmented Neutrophils % (Manual) 74 Band Neutrophils % (Manual) 7 H Lymphocytes % Lymphocytes % (Manual) 8 L Monocytes % Monocytes % (Manual) 8 Eosinophils % Basophils % Metamyelocytes % (manual) 1 H Myelocytes % (Manual) 2 H Nucleated Red Blood Cells % 0.0 Immature Granulocytes # 0.440 H Neutrophils # Neutrophils # (Manual) 6.2 Band Neutrophils # 0.5 Lymphocytes (Manual) 0.6 L Lymphocytes # Monocytes # Monocytes # (Manual) 0.6 Eosinophils # Basophils # Metamyelocytes # 0.0 Myelocytes # 0.1 H Nucleated Red Blood Cells # Platelet Estimate NORMAL Giant Platelets 5 H Polychromasia 1+ Poikilocytosis 1+ Anisocytosis 1+ Ovalocytes 1+ Sodium Level 142 Potassium Level 3.7 Chloride Level 107 Carbon Dioxide Level 31 Anion Gap 4 L Blood Urea Nitrogen 41 H Creatinine 1.89 H Est Glomerular Filtrat Rate mL/min Glucose Level 90 Calcium Level 7.8 L Phosphorus Level 3.9 Magnesium Level 2.1 Blood Gas Specimen Source Blood arterial Arterial Blood Date Drawn 09/26/2018 10:00:55 AM Arterial Blood pH (Temp corrected) 7.440 Arterial Blood pCO2 (Temp correct) 40.7 Arterial Blood pO2 (Temp corrected) 62.9 L Arterial Blood HCO3 27.0 H Arterial Blood Base Excess 2.7 Arterial Blood Oxygen Saturation 92.0 L Domenico Test ACCEPTAB Arterial Blood Gas Puncture Site Right Radial Arterial Blood Carboxyhemoglobin 0.4 Arterial Blood Methemoglobin 0.3 Blood Gas A-a O2 Differential 81.5 H Oxyhemoglobin Percent 91.4 L Blood Gas Temperature 37.0 Blood Gas Modality NASAL CANNULA FiO2 27.0 Blood Gas Notified Whom RT Blood Gas Notified Time 09/26/2018 10:11:25 AM Medications Medication Current Medications IV Flush (NS 3 ml) 3 ml PER PROTOCOL IV ; Start 08/29/18 at 06:00 Ondansetron HCl (Zofran Inj) 4 mg Q6H PRN IV NAUSEA/VOMITING Last administered on 08/31/18at 05:02; Admin Dose 4 MG; Start 08/29/18 at 06:00 Lorazepam (Ativan) 0.5 mg Q6H PRN PO ANXIETY Last administered on 09/23/18 21:33; Admin Dose 0.5 MG; Start 09/02/18 at 13:00 Bisacodyl (Dulcolax Supp) 10 mg DAILY PRN [place] CONSTIPATION; Start 09/03/18 at 12:00 Heparin Sodium (Porcine) (Heparin (5000 Units/1ml)) 5,000 unit BID SC Last administered on 09/26/18 08:32; Admin Dose 5,000 UNIT; Start 09/03/18 at 14:00 Hydralazine HCl (Apresoline) 10 mg Q3 PRN IV ELEVATED SYSTOLIC BP Last administered on 09/26/18 08:26; Admin Dose 10 MG; Start 09/03/18 at 18:00 Albuterol/ Ipratropium (Duoneb) 3 ml Q2H RESP THERAPY PRN HHN SHORTNESS OF BREATH Last administered on 09/21/18 06:45; Admin Dose 3 ML; Start 09/03/18 at 20:00 Multivitamins (Multivitamin) 30 ml DAILY NGT Last administered on 09/25/18 08:35; Admin Dose 30 ML; Start 09/07/18 at 14:30 Ascorbic Acid (Vitamin C) 500 mg DAILY NGT Last administered on 09/25/18 08:36; Admin Dose 500 MG; Start 09/07/18 at 14:30 Petrolatum (Vaseline) APPLY TO MULTIPLE SC... BID TOP Last administered on 09/26/18 10:00; Admin Dose 1 APPLIC; Start 09/08/18 at 09:00 IV Flush (NS 10 ml) 10 ml PRN PRN IV FLUSH LINE; Start 09/09/18 at 11:30 Triamcinolone Acetonide (Kenalog 0.1% Cr) 1 applic BID TOP Last administered on 09/26/18 10:00; Admin Dose 1 APPLIC; Start 09/12/18 at 14:00 Mupirocin (Bactroban) 1 applic BID TOP Last administered on 09/26/18 09:00; Admin Dose 1 APPLIC; Start 09/20/18 at 11:30 Chlorhexidine Gluconate (Peridex) 15 ml BID MT Last administered on 09/25/18 21:18; Admin Dose 15 ML; Start 09/20/18 at 14:00 Docusate Sodium (Colace Liquid Cup) 100 mg BID PO Last administered on 09/25/18at 08:35; Admin Dose 100 MG; Start 09/24/18 at 21:00 Escitalopram Oxalate (Lexapro) 20 mg DAILY PO Last administered on 09/25/18at 08:36; Admin Dose 20 MG; Start 09/25/18 at 09:00 Acetaminophen (Tylenol Tab) 650 mg Q6H PRN PO .PAIN 1-3 OR TEMP; Start 09/25/18 at 13:00 Docusate Sodium (Colace Liquid Cup) 100 mg Q12H PRN PO .CONSTIPATION; Start 09/25/18 at 23:00 Folic Acid (Folic Acid) 1 mg DAILY PO ; Start 09/26/18 at 09:00 Lactobacillus Acidophilus/ Rhamnosus (Culturelle) 1 cap BID PO ; Start 09/25/18 at 21:00 Magnesium Hydroxide (Milk Of Mag) 30 ml DAILY PRN PO .CONSTIPATION; Start 09/25/18 at 13:00 Valacyclovir HCl (Valtrex) 500 mg BID PO ; Start 09/25/18 at 21:00 Zinc Sulfate (Zinc Sulfate) 220 mg DAILY PO ; Start 09/26/18 at 09:00 Pantoprazole (Protonix Tab) 40 mg BID@0600,1800 PO ; Start 09/25/18 at 18:00 Sevelamer Carbonate (Renvela) 800 mg WITH MEALS PO ; Start 09/25/18 at 17:55 Methylprednisolone Sodium Succinate (Solu-Medrol) 30 mg DAILY IV Last administered on 09/26/18at 08:27; Admin Dose 30 MG; Start 09/26/18 at 09:00 Aspirin (Halfprin) 81 mg DAILY PO ; Start 09/26/18 at 09:00 Dextrose/Sodium Chloride 1,000 ml @ 40 mls/hr Q24H IV Last administered on 09/25/18at 18:00; Admin Dose 40 MLS/HR; Start 09/25/18 at 17:00 Lorazepam (Ativan) 0.5 mg Q4 PRN IV AGITATION/ANXIETY Last administered on 09/25/18at 21:23; Admin Dose 0.5 MG; Start 09/25/18 at 21:00 Furosemide (Lasix) 40 mg DAILY@0600 IV Last administered on 09/26/18at 09:58; Admin Dose 40 MG; Start 09/26/18 at 10:00 Albuterol/ Ipratropium (Duoneb) 3 ml Q4H RESP THERAPY N ; Start 09/26/18 at 13:00 TOOTIE HERNANDEZ MD Sep 26, 2018 10:49
[2018-09-26] MEDS ORDERED: ALPRAZOLAM 0.5 MG TAB PO PRN (11:00)
[2018-09-26 11:31] VITALS: BP 170/79; PULSE 113; RESP 18
[2018-09-26] MEDS: ALPRAZOLAM 0.5 MG TAB PO SCH ×2 (11:53→21:20)
[2018-09-26 15:08] VITALS: BP 154/70; PULSE 105; RESP 18
--- NOTE | 2018-09-26 15:50 | CONS ---
Consult Date/Type/Reason Admit Date/Time Aug 29, 2018 at 05:45 Initial Consult Date 09/07/18 Type of Consultation: neph Requesting Provider: SERGIO TREVINO MD Date/Time of Note DATE: 09/26/18 TIME: 15:49 Subjective Interventional cardiology follow-up progress note Subjective: Case discussed with the staff and telemetry was reviewed. Patient has remained in AFIB but HR is under control mostly Patient is on tele and remains in AFIB no report of any chest pain or pressure no bleeding is reported O General: Elderly gentleman. no acute distress HEENT: NC/AT. pupils are equal. round. NECK: NO JVD. no stridor. CV: irregularly irregular . systolic murmur; no gallop or rubs. PULM: no wheezing + rhonchi. GI: SOFT, NT, ND, no rebound or guarding Extremity: 1+ B/L LE edema. no clubbing. neuro: awake and alert Psych: calm rectal: deferred EKG normal sinus rhythm Chest x-ray on admission showed: 1. Right basilar interstitial opacities, new from the prior examination from a few hours prior, likely reflecting atelectasis. 2. Mild prominence of the interstitial markings, may reflect mild underlying interstitial edema or chronic lung changes. 3. Mild cardiomegaly and aortic atherosclerosis. Chest x-ray done on 09/06/2018 shows: 1. Atherosclerosis of the thoracic aorta. 2. Persistent bilateral pulmonary infiltrates which could represent infection or non infection related edema or combination of the 2. 3. Endotracheal and nasogastric tubes in place. CXR . 1. Findings suggestive of pulmonary vascular congestion with small bilateral pleural effusions. Lung aeration is improved when compared to the prior examination. 2. Mild cardiomegaly and aortic atherosclerosis. 3. Right upper extremity PICC line with tip near the cavoatrial junction. CXR 09/24: Patchy bilateral pulmonary air space disease consistent with pulmonary edema or bilateral pneumonia is unchanged. The heart is enlarged. There is calcification in the aorta consistent with atherosclerosis. There are small bilateral pleural effusions. Echocardiogram done on 08/29/2018 which was personally reviewed shows: There is mild to mod enlargement of left atrium. Normal left ventricular systolic function. Normal left ventricular cavity size. Normal left ventricular wall thickness. Ejection fraction is visually estimated at 60-65 %. Normal appearance of the mitral valve. Mild mitral valve regurgitation. Normal appearance of the aortic valve. No aortic regurgitation. Normal appearance of the tricuspid valve. The estimated Peak RVSP is 53 mmHg. There is mild tricuspid regurgitation. The IVC is not well visualized. Objective Vitals Vital Signs Date Temp Pulse Resp B/P (MAP) Pulse Ox O2 O2 Flow FiO2 Time Delivery Rate 09/26/18 98.5 105 18 154/70 95 15:08 (98) 09/26/18 Nasal 4.0 08:30 Cannula 09/22/18 21 08:05 Intake and Output 09/25/18 09/25/18 09/26/18 1515:00 23:00 07:00 IntakeIntake Total 240 ml 240 ml OutputOutput Total 500 ml 450 ml BalanceBalance 240 ml -500 ml -210 ml Results/Medications Result Diagram: 09/26/18 0725 09/26/18 0725 Results 24 hrs Laboratory Tests Test 09/26/18 07:25 09/26/18 09:50 09/26/18 10:01 White Blood Count 8.3 # Red Blood Count 3.66 L Hemoglobin 11.2 L Hematocrit 34.6 L Mean Corpuscular Volume 94.5 Mean Corpuscular Hemoglobin 30.6 Mean Corpuscular 32.4 Hemoglobin Concent Red Cell Distribution Width 14.9 H Platelet Count 377 # Mean Platelet Volume 10.7 H Immature Granulocytes % 5.300 H Neutrophils % Segmented Neutrophils 74 % (Manual) Band Neutrophils % (Manual) 7 H Lymphocytes % Lymphocytes % (Manual) 8 L Monocytes % Monocytes % (Manual) 8 Eosinophils % Basophils % Metamyelocytes % (manual) 1 H Myelocytes % (Manual) 2 H Nucleated Red Blood Cells % 0.0 Immature Granulocytes # 0.440 H Neutrophils # Neutrophils # (Manual) 6.2 Band Neutrophils # 0.5 Lymphocytes (Manual) 0.6 L Lymphocytes # Monocytes # Monocytes # (Manual) 0.6 Eosinophils # Basophils # Metamyelocytes # 0.0 Myelocytes # 0.1 H Nucleated Red Blood Cells # Platelet Estimate NORMAL Giant Platelets 5 H Polychromasia 1+ Poikilocytosis 1+ Anisocytosis 1+ Ovalocytes 1+ Sodium Level 142 Potassium Level 3.7 Chloride Level 107 Carbon Dioxide Level 31 Anion Gap 4 L Blood Urea Nitrogen 41 H Creatinine 1.89 H Est Glomerular Filtrat Rate mL/min Glucose Level 90 Calcium Level 7.8 L Phosphorus Level 3.9 Magnesium Level 2.1 Blood Gas Specimen Source Blood arterial Arterial Blood Date Drawn 09/26/2018 10:00:55 AM Arterial Blood pH 7.440 (Temp corrected) Arterial Blood pCO2 40.7 (Temp correct) Arterial Blood pO2 62.9 L (Temp corrected) Arterial Blood HCO3 27.0 H Arterial Blood Base Excess 2.7 Arterial Blood 92.0 L Oxygen Saturation Domenico Test ACCEPTAB Arterial Blood Gas Right Radial Puncture Site Arterial 0.4 Blood Carboxyhemoglobin Arterial Blood 0.3 Methemoglobin Blood Gas A-a O2 81.5 H Differential Oxyhemoglobin Percent 91.4 L Blood Gas Temperature 37.0 Blood Gas Modality NASAL CANNULA FiO2 27.0 Blood Gas Notified Whom RT Blood Gas Notified Time 09/26/2018 10:11:25 AM Procalcitonin 0.20 H Home Meds Reported Medications Losartan Potassium* (Losartan Potassium*) 50 Mg Tablet, 50 MG PO DAILY, TAB 08/29/18 Simvastatin (Simvastatin) 20 Mg Tablet, 20 MG PO QHS for 90 Days, #90 08/29/18 Furosemide* (Furosemide*) 40 Mg Tablet, 40 MG PO DAILY for 90 Days, #90 08/29/18 Potassium Chloride (K-Tab ER) 8 Meq Tablet.er, 8 MEQ PO BID for 90 Days, #180 08/29/18 Escitalopram Oxalate* (Escitalopram Oxalate*) 10 Mg Tablet, 20 MG PO DAILY for 90 Days, #90 08/29/18 Hydrocodone Bit-Acetaminophen (Hydrocodone Bit-APAP) 5-325MG Tablet, 1 TAB PO DAILY 08/29/18 Dexlansoprazole (Dexilant) 60 Mg Tree., 60 MG PO DAILY for 90 Days, #90 08/29/18 Amiodarone Hcl* (Amiodarone Hcl*) 200 Mg Tablet, 200 MG PO DAILY for 90 Days, #90 08/29/18 Alprazolam* (Alprazolam*) 0.5 Mg Tablet, 0.5 MG PO QHS for 30 Days, #30 08/29/18 Medications Current Medications IV Flush (NS 3 ml) 3 ml PER PROTOCOL IV ; Start 08/29/18 at 06:00 Ondansetron HCl (Zofran Inj) 4 mg Q6H PRN IV NAUSEA/VOMITING Last administered on 08/31/18at 05:02; Admin Dose 4 MG; Start 08/29/18 at 06:00 Bisacodyl (Dulcolax Supp) 10 mg DAILY PRN [place] CONSTIPATION; Start 09/03/18 at 12:00 Heparin Sodium (Porcine) (Heparin (5000 Units/1ml)) 5,000 unit BID SC Last administered on 09/26/18 08:32; Admin Dose 5,000 UNIT; Start 09/03/18 at 14:00 Hydralazine HCl (Apresoline) 10 mg Q3 PRN IV ELEVATED SYSTOLIC BP Last administered on 09/26/18 08:26; Admin Dose 10 MG; Start 09/03/18 at 18:00 Albuterol/ Ipratropium (Duoneb) 3 ml Q2H RESP THERAPY PRN HHN SHORTNESS OF BREATH Last administered on 09/21/18 06:45; Admin Dose 3 ML; Start 09/03/18 at 20:00 Multivitamins (Multivitamin) 30 ml DAILY NGT Last administered on 09/25/18 08:35; Admin Dose 30 ML; Start 09/07/18 at 14:30 Ascorbic Acid (Vitamin C) 500 mg DAILY NGT Last administered on 09/25/18 08:36; Admin Dose 500 MG; Start 09/07/18 at 14:30 Petrolatum (Vaseline) APPLY TO MULTIPLE SC... BID TOP Last administered on 09/26/18 10:00; Admin Dose 1 APPLIC; Start 09/08/18 at 09:00 IV Flush (NS 10 ml) 10 ml PRN PRN IV FLUSH LINE; Start 09/09/18 at 11:30 Triamcinolone Acetonide (Kenalog 0.1% Cr) 1 applic BID TOP Last administered on 09/26/18 10:00; Admin Dose 1 APPLIC; Start 09/12/18 at 14:00 Mupirocin (Bactroban) 1 applic BID TOP Last administered on 09/26/18 09:00; Admin Dose 1 APPLIC; Start 09/20/18 at 11:30 Chlorhexidine Gluconate (Peridex) 15 ml BID MT Last administered on 09/25/18 21:18; Admin Dose 15 ML; Start 09/20/18 at 14:00 Docusate Sodium (Colace Liquid Cup) 100 mg BID PO Last administered on 6/28/19at 08:35; Admin Dose 100 MG; Start 09/24/18 at 21:00 Escitalopram Oxalate (Lexapro) 20 mg DAILY PO Last administered on 09/25/18at 08:36; Admin Dose 20 MG; Start 09/25/18 at 09:00 Acetaminophen (Tylenol Tab) 650 mg Q6H PRN PO .PAIN 1-3 OR TEMP; Start 09/25/18 at 13:00 Docusate Sodium (Colace Liquid Cup) 100 mg Q12H PRN PO .CONSTIPATION; Start 09/25/18 at 23:00 Folic Acid (Folic Acid) 1 mg DAILY PO ; Start 09/26/18 at 09:00 Lactobacillus Acidophilus/ Rhamnosus (Culturelle) 1 cap BID PO ; Start 09/25/18 at 21:00 Magnesium Hydroxide (Milk Of Mag) 30 ml DAILY PRN PO .CONSTIPATION; Start 09/25/18 at 13:00 Valacyclovir HCl (Valtrex) 500 mg BID PO ; Start 09/25/18 at 21:00 Zinc Sulfate (Zinc Sulfate) 220 mg DAILY PO ; Start 09/26/18 at 09:00 Pantoprazole (Protonix Tab) 40 mg BID@0600,1800 PO ; Start 09/25/18 at 18:00 Sevelamer Carbonate (Renvela) 800 mg WITH MEALS PO Last administered on 09/26/18at 11:53; Admin Dose 800 MG; Start 09/25/18 at 17:55 Methylprednisolone Sodium Succinate (Solu-Medrol) 30 mg DAILY IV Last administered on 09/26/18at 08:27; Admin Dose 30 MG; Start 09/26/18 at 09:00 Aspirin (Halfprin) 81 mg DAILY PO ; Start 09/26/18 at 09:00 Dextrose/Sodium Chloride 1,000 ml @ 40 mls/hr Q24H IV Last administered on 09/25/18at 18:00; Admin Dose 40 MLS/HR; Start 09/25/18 at 17:00 Furosemide (Lasix) 40 mg DAILY@0600 IV Last administered on 09/26/18at 09:58; Admin Dose 40 MG; Start 09/26/18 at 10:00 Albuterol/ Ipratropium (Duoneb) 3 ml Q4H RESP THERAPY HHN Last administered on 09/26/18at 14:01; Admin Dose 3 ML; Start 09/26/18 at 13:00 Alprazolam (Xanax) 0.5 mg Q12H PRN PO ANXIETY; Start 09/26/18 at 11:00 Alprazolam (Xanax) 0.5 mg BID PO Last administered on 09/26/18at 11:53; Admin Dose 0.5 MG; Start 09/26/18 at 11:00 Assessment/Plan Hospital Course (Demo Recall) 1. sick sinus with Marked sinus bradycardia: NOW IN AFIB 2. Acute hypoxemic respiratory failure status post intubation on the vent 3. Pulmonary hypertension 4. History of proximal atrial fibrillation: currently has remained in normal sinus rhythm/sinus bradycardia 5. Hypertension 6. Urinary retention status post surgery 7. Pneumonia possible COPD possible ARDS 8. Acute renal failure 9. P-AFIB 10. CHF/ fluid overload 11. Dysphagia Recommendations: pt has been taken off the amiodarone given his marked bradycardia as well as his significant pulmonary disease. Continue blood pressure control. Respiratory care to be continued. Antibiotic management as per internal medicine consultants We will continue to monitor on telemetry thyroid management as per IM . TSH was normal as of 09/12/18 Antibiotic as per internal medicine consider full anticoagulation with eliquis 2.5 bid instead of ASA if /once OK WITH GI and pt is able to take po diuresis as per renal prn IV dig prn Thank you for his referral. We will continue to follow along with you AMANDA DUNBAR MD [facility] AMANDA DUNBAR MD Sep 26, 2018 15:50
[2018-09-26] MEDS ORDERED: DILTIAZEM 25 MG INJ IV PRN (16:00)
--- NOTE | 2018-09-26 16:12 | CONS ---
Consult Date/Type/Reason Admit Date/Time Aug 29, 2018 at 05:45 Initial Consult Date 09/07/18 Type of Consultation: Pulm Requesting Provider: SERGIO TREVINO MD Date/Time of Note DATE: 09/26/18 TIME: 16:10 Subjective No events. ABG reviewed. Work of breathing is moderate. Objective Vitals Vital Signs Date Temp Pulse Resp B/P (MAP) Pulse Ox O2 O2 Flow FiO2 Time Delivery Rate 09/26/18 98.5 105 18 154/70 95 15:08 (98) 09/26/18 Nasal 4.0 08:30 Cannula 09/22/18 21 08:05 Intake and Output 09/25/18 09/25/18 09/26/18 1515:00 23:00 07:00 IntakeIntake Total 240 ml 240 ml OutputOutput Total 500 ml 450 ml BalanceBalance 240 ml -500 ml -210 ml Exam NECK: Supple. No JVD or lymphadenopathy. CARDIAC EXAM: Irreg irreg S1, S2. No added sounds or murmurs. CHEST: Diminished air entry bilaterally with few expiratory wheezes ABDOMEN: Soft, nontender. No guarding or rebound. EXTREMITIES: No cyanosis, clubbing edema +1 NEUROLOGIC: Generalized weakness. No focal deficits Results/Medications Result Diagram: 09/26/18 0725 09/26/18 0725 Results 24 hrs Laboratory Tests Test 09/26/18 07:25 09/26/18 09:50 09/26/18 10:01 White Blood Count 8.3 # Red Blood Count 3.66 L Hemoglobin 11.2 L Hematocrit 34.6 L Mean Corpuscular Volume 94.5 Mean Corpuscular Hemoglobin 30.6 Mean Corpuscular 32.4 Hemoglobin Concent Red Cell Distribution Width 14.9 H Platelet Count 377 # Mean Platelet Volume 10.7 H Immature Granulocytes % 5.300 H Neutrophils % Segmented Neutrophils 74 % (Manual) Band Neutrophils % (Manual) 7 H Lymphocytes % Lymphocytes % (Manual) 8 L Monocytes % Monocytes % (Manual) 8 Eosinophils % Basophils % Metamyelocytes % (manual) 1 H Myelocytes % (Manual) 2 H Nucleated Red Blood Cells % 0.0 Immature Granulocytes # 0.440 H Neutrophils # Neutrophils # (Manual) 6.2 Band Neutrophils # 0.5 Lymphocytes (Manual) 0.6 L Lymphocytes # Monocytes # Monocytes # (Manual) 0.6 Eosinophils # Basophils # Metamyelocytes # 0.0 Myelocytes # 0.1 H Nucleated Red Blood Cells # Platelet Estimate NORMAL Giant Platelets 5 H Polychromasia 1+ Poikilocytosis 1+ Anisocytosis 1+ Ovalocytes 1+ Sodium Level 142 Potassium Level 3.7 Chloride Level 107 Carbon Dioxide Level 31 Anion Gap 4 L Blood Urea Nitrogen 41 H Creatinine 1.89 H Est Glomerular Filtrat Rate mL/min Glucose Level 90 Calcium Level 7.8 L Phosphorus Level 3.9 Magnesium Level 2.1 Blood Gas Specimen Source Blood arterial Arterial Blood Date Drawn 09/26/2018 10:00:55 AM Arterial Blood pH 7.440 (Temp corrected) Arterial Blood pCO2 40.7 (Temp correct) Arterial Blood pO2 62.9 L (Temp corrected) Arterial Blood HCO3 27.0 H Arterial Blood Base Excess 2.7 Arterial Blood 92.0 L Oxygen Saturation Domenico Test ACCEPTAB Arterial Blood Gas Right Radial Puncture Site Arterial 0.4 Blood Carboxyhemoglobin Arterial Blood 0.3 Methemoglobin Blood Gas A-a O2 81.5 H Differential Oxyhemoglobin Percent 91.4 L Blood Gas Temperature 37.0 Blood Gas Modality NASAL CANNULA FiO2 27.0 Blood Gas Notified Whom RT Blood Gas Notified Time 09/26/2018 10:11:25 AM Procalcitonin 0.20 H Home Meds Reported Medications Losartan Potassium* (Losartan Potassium*) 50 Mg Tablet, 50 MG PO DAILY, TAB 08/29/18 Simvastatin (Simvastatin) 20 Mg Tablet, 20 MG PO QHS for 90 Days, #90 08/29/18 Furosemide* (Furosemide*) 40 Mg Tablet, 40 MG PO DAILY for 90 Days, #90 08/29/18 Potassium Chloride (K-Tab ER) 8 Meq Tablet.er, 8 MEQ PO BID for 90 Days, #180 08/29/18 Escitalopram Oxalate* (Escitalopram Oxalate*) 10 Mg Tablet, 20 MG PO DAILY for 90 Days, #90 08/29/18 Hydrocodone Bit-Acetaminophen (Hydrocodone Bit-APAP) 5-325MG Tablet, 1 TAB PO DAILY 08/29/18 Dexlansoprazole (Dexilant) 60 Mg , 60 MG PO DAILY for 90 Days, #90 08/29/18 Amiodarone Hcl* (Amiodarone Hcl*) 200 Mg Tablet, 200 MG PO DAILY for 90 Days, #90 08/29/18 Alprazolam* (Alprazolam*) 0.5 Mg Tablet, 0.5 MG PO QHS for 30 Days, #30 08/29/18 Medications Current Medications IV Flush (NS 3 ml) 3 ml PER PROTOCOL IV ; Start 08/29/18 at 06:00 Ondansetron HCl (Zofran Inj) 4 mg Q6H PRN IV NAUSEA/VOMITING Last administered on 08/31/18at 05:02; Admin Dose 4 MG; Start 08/29/18 at 06:00 Bisacodyl (Dulcolax Supp) 10 mg DAILY PRN NE CONSTIPATION; Start 09/03/18 at 12:00 Heparin Sodium (Porcine) (Heparin (5000 Units/1ml)) 5,000 unit BID SC Last administered on 09/26/18at 08:32; Admin Dose 5,000 UNIT; Start 09/03/18 at 14:00 Hydralazine HCl (Apresoline) 10 mg Q3 PRN IV ELEVATED SYSTOLIC BP Last administered on 09/26/18at 08:26; Admin Dose 10 MG; Start 09/03/18 at 18:00 Albuterol/ Ipratropium (Duoneb) 3 ml Q2H RESP THERAPY PRN HHN SHORTNESS OF BREATH Last administered on 09/21/18at 06:45; Admin Dose 3 ML; Start 09/03/18 at 20:00 Multivitamins (Multivitamin) 30 ml DAILY NGT Last administered on 09/25/18at 08:35; Admin Dose 30 ML; Start 09/07/18 at 14:30 Ascorbic Acid (Vitamin C) 500 mg DAILY NGT Last administered on 09/25/18at 08:36 ; Admin Dose 500 MG; Start 09/07/18 at 14:30 Petrolatum (Vaseline) APPLY TO MULTIPLE SC... BID TOP Last administered on 09/26/18at 10:00; Admin Dose 1 APPLIC; Start 09/08/18 at 09:00 IV Flush (NS 10 ml) 10 ml PRN PRN IV FLUSH LINE; Start 09/09/18 at 11:30 Triamcinolone Acetonide (Kenalog 0.1% Cr) 1 applic BID TOP Last administered on 09/26/18at 10:00; Admin Dose 1 APPLIC; Start 09/12/18 at 14:00 Mupirocin (Bactroban) 1 applic BID TOP Last administered on 09/26/18at 09:00; Admin Dose 1 APPLIC; Start 09/20/18 at 11:30 Chlorhexidine Gluconate (Peridex) 15 ml BID MT Last administered on 09/25/18at 21:18; Admin Dose 15 ML; Start 09/20/18 at 14:00 Docusate Sodium (Colace Liquid Cup) 100 mg BID PO Last administered on 09/25/18at 08:35; Admin Dose 100 MG; Start 09/24/18 at 21:00 Escitalopram Oxalate (Lexapro) 20 mg DAILY PO Last administered on 09/25/18at 08:36; Admin Dose 20 MG; Start 09/25/18 at 09:00 Acetaminophen (Tylenol Tab) 650 mg Q6H PRN PO .PAIN 1-3 OR TEMP; Start 09/25/18 at 13:00 Docusate Sodium (Colace Liquid Cup) 100 mg Q12H PRN PO .CONSTIPATION; Start 09/25/18 at 23:00 Folic Acid (Folic Acid) 1 mg DAILY PO ; Start 09/26/18 at 09:00 Lactobacillus Acidophilus/ Rhamnosus (Culturelle) 1 cap BID PO ; Start 09/25/18 at 21:00 Magnesium Hydroxide (Milk Of Mag) 30 ml DAILY PRN PO .CONSTIPATION; Start 09/25/18 at 13:00 Valacyclovir HCl (Valtrex) 500 mg BID PO ; Start 09/25/18 at 21:00 Zinc Sulfate (Zinc Sulfate) 220 mg DAILY PO ; Start 09/26/18 at 09:00 Pantoprazole (Protonix Tab) 40 mg BID@0600,1800 PO ; Start 09/25/18 at 18:00 Sevelamer Carbonate (Renvela) 800 mg WITH MEALS PO Last administered on 09/26/18at 11:53; Admin Dose 800 MG; Start 09/25/18 at 17:55 Methylprednisolone Sodium Succinate (Solu-Medrol) 30 mg DAILY IV Last administered on 09/26/18at 08:27; Admin Dose 30 MG; Start 09/26/18 at 09:00 Aspirin (Halfprin) 81 mg DAILY PO ; Start 09/26/18 at 09:00 Dextrose/Sodium Chloride 1,000 ml @ 40 mls/hr Q24H IV Last administered on 09/25/18at 18:00; Admin Dose 40 MLS/HR; Start 09/25/18 at 17:00 Furosemide (Lasix) 40 mg DAILY@0600 IV Last administered on 09/26/18at 09:58; Admin Dose 40 MG; Start 09/26/18 at 10:00 Albuterol/ Ipratropium (Duoneb) 3 ml Q4H RESP THERAPY HHN Last administered on 09/26/18at 14:01; Admin Dose 3 ML; Start 09/26/18 at 13:00 Alprazolam (Xanax) 0.5 mg Q12H PRN PO ANXIETY; Start 09/26/18 at 11:00 Alprazolam (Xanax) 0.5 mg BID PO Last administered on 09/26/18at 11:53; Admin Dose 0.5 MG; Start 09/26/18 at 11:00 Diltiazem HCl (Cardizem Iv) 5 mg Q1H PRN IV HR > 100; Start 09/26/18 at 16:00 Assessment/Plan Assessment/Plan (Daily) IMP: 1. s/p Acute hypoxemic respiratory failure likely secondary to combination of pneumonia and CHF 2. COPD with possible exacerbation currently on steroids 3. History of renal insufficiency 4. Hypernatremia 5. Encephalopathy toxic metabolic, appears to be resolving RECS: 1. Continue BD's 2. Mobilize OOB 3. Keep I<O's 4. Aspiration precautions MICAELA AGUILERA MD Sep 26, 2018 16:12
[2018-09-26] MEDS: DEXTROSE 5%-0.45% NACL 1,000 ML IV SCH (16:34)
--- NOTE | 2018-09-26 16:38 | CONS ---
Consultation Date/Type/Reason Admit Date/Time Aug 29, 2018 at 05:45 Initial Consult Date SUBJECTIVE: Pt is sleepy, afebrile and looks comfortable. VS: stable T: 98.5 LABS: Reviewed. WBC- 8.3 Antimicrobials: Valtrex Indwelling's: Mcgowan catheter, PICC Physical examination: GEN: Well-developed well-nourished elderly man, who is awake in no distress. HENT: Head atraumatic normocephalic, sclera nonicteric vehicle mucosa dry; neck is supple PULM: chest rise symmetrical breath sounds with bilateral rhonchi. Heart: S1-S2. Abdomen soft bowel sounds present. Assessment: 1. S/p acute hypoxemic respiratory failure===>extubated 2. Status post pneumonia 3. CHF 4. Bradycardia 5. Acute kidney injury 6. Mouth lesions, on empiric Valtrex , s/p short course of Zyvox 7. Staph bacteremia cw contaminant Plan: Pt is stable. Continue present care, anti-aspiration precautions. Monitor off of antbx. Requesting Provider: SERGIO TREVINO MD Date/Time of Note DATE: 09/26/18 TIME: 16:34 Exam/Review of Systems Exam Vitals Vital Signs Date Temp Pulse Resp B/P (MAP) Pulse Ox O2 O2 Flow FiO2 Time Delivery Rate 09/26/18 98.5 105 18 154/70 95 15:08 (98) 09/26/18 Nasal 4.0 08:30 Cannula 09/22/18 21 08:05 Intake and Output 09/25/18 09/25/18 09/26/18 1515:00 23:00 07:00 IntakeIntake Total 240 ml 240 ml OutputOutput Total 500 ml 450 ml BalanceBalance 240 ml -500 ml -210 ml Results Result Diagram: 09/26/18 0725 09/26/18 0725 Results 24hrs Laboratory Tests Test 09/26/18 07:25 09/26/18 09:50 09/26/18 10:01 White Blood Count 8.3 # Red Blood Count 3.66 L Hemoglobin 11.2 L Hematocrit 34.6 L Mean Corpuscular Volume 94.5 Mean Corpuscular Hemoglobin 30.6 Mean Corpuscular 32.4 Hemoglobin Concent Red Cell Distribution Width 14.9 H Platelet Count 377 # Mean Platelet Volume 10.7 H Immature Granulocytes % 5.300 H Neutrophils % Segmented Neutrophils 74 % (Manual) Band Neutrophils % (Manual) 7 H Lymphocytes % Lymphocytes % (Manual) 8 L Monocytes % Monocytes % (Manual) 8 Eosinophils % Basophils % Metamyelocytes % (manual) 1 H Myelocytes % (Manual) 2 H Nucleated Red Blood Cells % 0.0 Immature Granulocytes # 0.440 H Neutrophils # Neutrophils # (Manual) 6.2 Band Neutrophils # 0.5 Lymphocytes (Manual) 0.6 L Lymphocytes # Monocytes # Monocytes # (Manual) 0.6 Eosinophils # Basophils # Metamyelocytes # 0.0 Myelocytes # 0.1 H Nucleated Red Blood Cells # Platelet Estimate NORMAL Giant Platelets 5 H Polychromasia 1+ Poikilocytosis 1+ Anisocytosis 1+ Ovalocytes 1+ Sodium Level 142 Potassium Level 3.7 Chloride Level 107 Carbon Dioxide Level 31 Anion Gap 4 L Blood Urea Nitrogen 41 H Creatinine 1.89 H Est Glomerular Filtrat Rate mL/min Glucose Level 90 Calcium Level 7.8 L Phosphorus Level 3.9 Magnesium Level 2.1 Blood Gas Specimen Source Blood arterial Arterial Blood Date Drawn 09/26/2018 10:00:55 AM Arterial Blood pH 7.440 (Temp corrected) Arterial Blood pCO2 40.7 (Temp correct) Arterial Blood pO2 62.9 L (Temp corrected) Arterial Blood HCO3 27.0 H Arterial Blood Base Excess 2.7 Arterial Blood 92.0 L Oxygen Saturation Domenico Test ACCEPTAB Arterial Blood Gas Right Radial Puncture Site Arterial 0.4 Blood Carboxyhemoglobin Arterial Blood 0.3 Methemoglobin Blood Gas A-a O2 81.5 H Differential Oxyhemoglobin Percent 91.4 L Blood Gas Temperature 37.0 Blood Gas Modality NASAL CANNULA FiO2 27.0 Blood Gas Notified Whom RT Blood Gas Notified Time 09/26/2018 10:11:25 AM Procalcitonin 0.20 H Medications Medication Current Medications IV Flush (NS 3 ml) 3 ml PER PROTOCOL IV ; Start 08/29/18 at 06:00 Ondansetron HCl (Zofran Inj) 4 mg Q6H PRN IV NAUSEA/VOMITING Last administered on 08/31/18at 05:02; Admin Dose 4 MG; Start 08/29/18 at 06:00 Bisacodyl (Dulcolax Supp) 10 mg DAILY PRN CO CONSTIPATION; Start 09/03/18 at 12:00 Heparin Sodium (Porcine) (Heparin (5000 Units/1ml)) 5,000 unit BID SC Last administered on 09/26/18 08:32; Admin Dose 5,000 UNIT; Start 09/03/18 at 14:00 Hydralazine HCl (Apresoline) 10 mg Q3 PRN IV ELEVATED SYSTOLIC BP Last administered on 09/26/18 08:26; Admin Dose 10 MG; Start 09/03/18 at 18:00 Albuterol/ Ipratropium (Duoneb) 3 ml Q2H RESP THERAPY PRN HHN SHORTNESS OF BREATH Last administered on 09/21/18 06:45; Admin Dose 3 ML; Start 09/03/18 at 20:00 Multivitamins (Multivitamin) 30 ml DAILY NGT Last administered on 09/25/18 08:35; Admin Dose 30 ML; Start 09/07/18 at 14:30 Ascorbic Acid (Vitamin C) 500 mg DAILY NGT Last administered on 09/25/18 08:36; Admin Dose 500 MG; Start 09/07/18 at 14:30 Petrolatum (Vaseline) APPLY TO MULTIPLE SC... BID TOP Last administered on 08/30 10:00; Admin Dose 1 APPLIC; Start 09/08/18 at 09:00 IV Flush (NS 10 ml) 10 ml PRN PRN IV FLUSH LINE; Start 09/09/18 at 11:30 Triamcinolone Acetonide (Kenalog 0.1% Cr) 1 applic BID TOP Last administered on 09/26/18 10:00; Admin Dose 1 APPLIC; Start 09/12/18 at 14:00 Mupirocin (Bactroban) 1 applic BID TOP Last administered on 09/26/18 09:00; Admin Dose 1 APPLIC; Start 09/20/18 at 11:30 Chlorhexidine Gluconate (Peridex) 15 ml BID MT Last administered on 09/25/18 21:18; Admin Dose 15 ML; Start 09/20/18 at 14:00 Docusate Sodium (Colace Liquid Cup) 100 mg BID PO Last administered on 08:35; Admin Dose 100 MG; Start 09/24/18 at 21:00 Escitalopram Oxalate (Lexapro) 20 mg DAILY PO Last administered on 09/25/18 08:36; Admin Dose 20 MG; Start 09/25/18 at 09:00 Acetaminophen (Tylenol Tab) 650 mg Q6H PRN PO .PAIN 1-3 OR TEMP; Start 09/25/18 at 13:00 Docusate Sodium (Colace Liquid Cup) 100 mg Q12H PRN PO .CONSTIPATION; Start 09/25/18 at 23:00 Folic Acid (Folic Acid) 1 mg DAILY PO ; Start 09/26/18 at 09:00 Lactobacillus Acidophilus/ Rhamnosus (Culturelle) 1 cap BID PO ; Start 09/25/18 at 21:00 Magnesium Hydroxide (Milk Of Mag) 30 ml DAILY PRN PO .CONSTIPATION; Start 09/25/18 at 13:00 Valacyclovir HCl (Valtrex) 500 mg BID PO ; Start 09/25/18 at 21:00 Zinc Sulfate (Zinc Sulfate) 220 mg DAILY PO ; Start 09/26/18 at 09:00 Pantoprazole (Protonix Tab) 40 mg BID@0600,1800 PO ; Start 09/25/18 at 18:00 Sevelamer Carbonate (Renvela) 800 mg WITH MEALS PO Last administered on 09/26/18at 11:53; Admin Dose 800 MG; Start 09/25/18 at 17:55 Methylprednisolone Sodium Succinate (Solu-Medrol) 30 mg DAILY IV Last administered on 09/26/18at 08:27; Admin Dose 30 MG; Start 09/26/18 at 09:00 Aspirin (Halfprin) 81 mg DAILY PO ; Start 09/26/18 at 09:00 Dextrose/Sodium Chloride 1,000 ml @ 40 mls/hr Q24H IV Last administered on 09/25/18at 18:00; Admin Dose 40 MLS/HR; Start 09/25/18 at 17:00 Furosemide (Lasix) 40 mg DAILY@0600 IV Last administered on 09/26/18at 09:58; Admin Dose 40 MG; Start 09/26/18 at 10:00 Albuterol/ Ipratropium (Duoneb) 3 ml Q4H RESP THERAPY HHN Last administered on 09/26/18at 14:01; Admin Dose 3 ML; Start 09/26/18 at 13:00 Alprazolam (Xanax) 0.5 mg Q12H PRN PO ANXIETY; Start 09/26/18 at 11:00 Alprazolam (Xanax) 0.5 mg BID PO Last administered on 09/26/18at 11:53; Admin Dose 0.5 MG; Start 09/26/18 at 11:00 Diltiazem HCl (Cardizem Iv) 5 mg Q1H PRN IV HR > 100; Start 09/26/18 at 16:00 BRIANNE MAS Sep 26, 2018 16:38
[2018-09-26 19:49] VITALS: BP 173/64; PULSE 98; RESP 18
[2018-09-27] VITALS (7 sets, daily range): BP systolic 133–166; BP diastolic 66–80; PULSE 79–96; RESP 17–20
[2018-09-27] MEDS: ALBUTEROL/IPRATROPIUM (NEB) 3 ML AMP HHN SCH ×6 (01:43→20:04)
[2018-09-27] MEDS: FUROSEMIDE 40 MG INJ IV SCH (05:51)
[2018-09-27] MEDS: PANTOPRAZOLE (EC) 40 MG TAB PO SCH ×2 (05:51→17:26)
[2018-09-27] MEDS: CHLORHEXIDINE GLUCONATE 15 ML UD CUP MT SCH ×2 (08:59→21:32)
[2018-09-27] MEDS: MULTIVITAMINS 30 ML CUP NGT SCH (08:59)
[2018-09-27] MEDS: ZINC SULFATE 220 MG CAP PO SCH (08:59)
[2018-09-27] MEDS: METHYLPREDNISOLONE 40 MG INJ IV SCH (08:59)
[2018-09-27] MEDS: ALPRAZOLAM 0.5 MG TAB PO SCH (08:59)
[2018-09-27] MEDS: DOCUSATE SODIUM 10 MG/ML (10ML CUP) PO SCH ×2 (08:59→21:00)
[2018-09-27] MEDS: SEVELAMER CARBONATE 800 MG TABLET PO SCH ×3 (08:59→17:26)
[2018-09-27] MEDS: ASCORBIC ACID 500 MG TAB NGT SCH (08:59)
[2018-09-27] MEDS: valACYclovir 500 MG TAB PO SCH ×2 (08:59→21:33)
[2018-09-27] MEDS: LACTOBACILLUS RHAMNOSUS CAP PO SCH ×2 (08:59→21:32)
[2018-09-27] MEDS: ASPIRIN (EC) 81 MG TAB PO SCH (08:59)
[2018-09-27] MEDS: ESCITALOPRAM 10 MG TAB PO SCH (08:59)
[2018-09-27] MEDS: PETROLATUM 5 GM OINT TOP SCH ×2 (09:00→21:32)
[2018-09-27] MEDS: FOLIC ACID 1 MG TAB PO SCH (09:00)
[2018-09-27] MEDS: BALSAM PERU/CASTOR OIL 60 GM TUBE TOP SCH ×2 (09:00→21:34)
[2018-09-27] MEDS: TRIAMCINOLONE ACET 0.1% 15 GM CR TOP SCH ×2 (09:00→21:34)
[2018-09-27] MEDS: MUPIROCIN 2% 22 GM OINT TOP SCH ×2 (09:00→21:34)
[2018-09-27] MEDS: HEPARIN 5,000 UNIT/1 ML VIAL SC SCH (09:09)
--- NOTE | 2018-09-27 10:25 | PN ---
DATE: 09/27/2018 SUBJECTIVE: The patient is stable, no events overnight. The patient is status post diuretic therapy . OBJECTIVE: VITAL SIGNS: Blood pressure is 133/67, pulse 87, respirations 18, temperature 98.6. HEENT: Head is normocephalic. NECK: Supple. HEART: Regular rate. LUNGS: Show diminished breath sounds at the base. ABDOMEN: Soft, nontender to palpation without rebound or guarding. EXTREMITIES: Negative for clubbing, cyanosis. Trace edema. DERMATOLOGIC: No rashes. MUSCULOSKELETAL: No joint effusion. NEUROLOGIC: No change in exam. MEDICATIONS: The patient's medications have been reviewed. LABORATORY DATA: Reviewed. IMAGING STUDIES: Reviewed. ASSESSMENT AND PLAN: 1. Nonoliguric acute kidney injury with unknown baseline creatinine. Etiology of acute kidney injur y is secondary to acute tubular necrosis, hemodynamics. Renal function has been fluctuating, but ove rall stable. Continue current treatment plan, supportive care, renally dose all medications. 2. Volume overload. Agree with diuretic therapy. Consider deescalating IV fluids, monitor closely. 3. Hypernatremia, improved. 4. Anemia. Monitor hemoglobin and hematocrit levels. 5. Mineral bone disorder, monitor calcium and phosphorus levels. 6. Respiratory failure, currently stable. Continue nasal cannula, diuretic therapy. 7. Sepsis secondary to pneumonia. Continue current antibiotic regimen. 8. Acute encephalopathy, etiology is toxic metabolic. 9. Decompensated diastolic heart failure. Continue diuretic therapy and monitor. 10. Nutrition. Continue modified diet. Dictated By: ANGELA ROSENTHAL/NTS Conf#: [id number] DID#: [id number] CC: SERGIO TREVINO MD; OLIVE ANDREWS MD;*EndCC*
[2018-09-27] MEDS: ALBUTEROL/IPRATROPIUM (NEB) 3 ML AMP HHN PRN (10:41)
--- NOTE | 2018-09-27 12:13 | PN ---
DATE: 09/27/2018 The patient is seen. The patient has been fed pureed diet. Appears to be less anxious and less tach ypneic. PHYSICAL EXAMINATION: VITAL SIGNS: Temperature 98.6, pulse 87, respirations 18, blood pressure 122/67, saturation 97% on 2 liters. GENERAL: The patient is in no acute distress. HEENT: Normocephalic, atraumatic. CARDIOVASCULAR: S1 and S2. LUNGS: Faint rhonchi bilaterally. ABDOMEN: Soft, nontender. EXTREMITIES: Trace edema lower extremity, much improved. LABORATORY DATA: White count is 8, hemoglobin 10.4, hematocrit 32, platelet count 329, but over 66%, bands of 3, lymphocytes 10%. Chemistry: Sodium is 143, potassium 3.6, chloride 105, bicarbonate 33 , BUN is 41, creatinine 0.7, glucose 103. AST 63, ALT 153, slightly high. Albumin is 2.5. Chest x- ray done yesterday shows cardiomegaly, CHF, small bilateral pleural effusions, right PICC line in the tip of the SVC. MEDICATIONS: 1. Cardizem IV p.r.n. 2. DuoNeb every 4 hours. 3. Xanax 0.5 q.12h. p.r.n. 4. Xanax 0.5 b.i.d. 5. Lasix 40 mg IV daily. 6. Folic acid mg daily. 7. Zinc sulfate 20 daily. 8. Solu-Medrol 10 mg IV daily. 9. Aspirin 81 mg daily. 10. Colace 100 q.12h. p.r.n. 11. Culturelle 1 tab b.i.d. 12. Valtrex 500 b.i.d. 13. Protonix 40 mg daily. 14. Renvela as directed. 15. The patient has been on D5 half normal saline at 20 mL an hour. We can discontinue. 16. Tylenol p.r.n. 17. Milk of Magnesia p.r.n. 18. Lexapro 20 mg daily. 19. Colace 100 b.i.d. 20. Peridex 15 b.i.d. 21. Bactrim b.i.d. 22. Vaseline b.i.d. 23. Multivitamins 30 mL daily. 24. Vitamin C 500 mg daily. 25. DuoNeb as directed. 26. Hydralazine p.r.n. 27. Heparin 5000 b.i.d. 28. Dulcolax p.r.n. 29. Zofran p.r.n. ASSESSMENT AND PLAN: This is an 87-year-old [place] male with history of atrial fibrillation, hyper tension, low back pain, status post respiratory failure with prolonged intubation, now extubated. 1. Respiratory. Breathing has improved since yesterday. Patient is receiving anxiolytics and IV La six. Still on breathing treatments. Antibiotic on hold as we are monitoring closely. I appreciate pulmonary input and recommendations. 2. Cardiovascular. The patient with atrial fibrillation on anticoagulation with aspirin and heparin . Vitals are otherwise stable. 3. Anemia. Hemoglobin and hematocrit stable. No need for transfusion. 4. Acute renal failure due to diuretics. Observe, monitor electrolytes. 5. Malnutrition, now on a pureed diet. May consider adding Ensure and Nepro shakes. NG tube placed on hold as the patient is now on a diet. 6. Generalized weakness due to prolonged hospitalization and respiratory issues. Physical therapy w ill be requested. 7. Infectious disease. Procalcitonin is borderline. Antibiotics to be placed on hold. Will monito r. 8. Neurologically just weak but overall alert. Observe. 9. Case has been discussed with his nephew on a regular basis. 10. Remains in telemetry unit. May need LTAC for ongoing care. Otherwise, may consider even acute rehabilitation at the hospital for close monitoring. Slightly better today. We will continue to monitor, but otherwise condition remains guarded. Michael machuca follow. Dictated By: SERGIO CERVANTES/NEHAL Conf#: [id number] DID#: [id number]
--- NOTE | 2018-09-27 12:18 | CONS ---
Consultation Date/Type/Reason Admit Date/Time Aug 29, 2018 at 05:45 Initial Consult Date SUBJECTIVE: Pt is sleepy, afebrile and looks comfortable. VS: stable T: 98.5 LABS: Reviewed. WBC- 8.3 CXR 09/26/18: IMPRESSION: The megaly. CHF. Small bilateral pleural effusions. Right PICC line with tip in the SVC Antimicrobials: Valtrex Indwelling's: Mcgowan catheter, PICC Physical examination: GEN: Well-developed well-nourished elderly man, who is awake in no distress. HENT: Head atraumatic normocephalic, sclera nonicteric vehicle mucosa dry; neck is supple PULM: chest rise symmetrical breath sounds with bilateral rhonchi. Heart: S1-S2. Abdomen soft bowel sounds present. Assessment: 1. S/p acute hypoxemic respiratory failure===>extubated 2. Status post pneumonia 3. CHF with exacerbation 4. Bradycardia 5. Acute kidney injury 6. Mouth lesions, on empiric Valtrex , s/p short course of Zyvox 7. Staph bacteremia cw contaminant Plan: Pt remains stable. Continue present care. CXR from yesterday noted. Aspiration precautions. Monitor off of antbx. Requesting Provider: SERGIO TREVINO MD Date/Time of Note DATE: 09/27/18 TIME: 12:17 Exam/Review of Systems Exam Vitals Vital Signs Date Temp Pulse Resp B/P (MAP) Pulse Ox O2 O2 Flow FiO2 Time Delivery Rate 09/27/18 98.3 79 18 138/74 96 11:59 (95) 09/27/18 Nasal 3.0 10:41 Cannula Intake and Output 09/26/18 09/26/18 09/27/18 1515:00 23:00 07:00 IntakeIntake Total 540 ml 350 ml OutputOutput Total 1150 ml 600 ml BalanceBalance -610 ml -250 ml Results Result Diagram: 09/27/18 0547 09/27/18 0547 Results 24hrs Laboratory Tests Test 09/27/18 05:47 White Blood Count 8.0 Red Blood Count 3.39 L Hemoglobin 10.4 L Hematocrit 32.1 L Mean Corpuscular Volume 94.7 Mean Corpuscular Hemoglobin 30.7 Mean Corpuscular Hemoglobin Concent 32.4 Red Cell Distribution Width 15.2 H Platelet Count 329 Mean Platelet Volume 10.4 Immature Granulocytes % 7.300 H Neutrophils % Segmented Neutrophils % (Manual) 66 Band Neutrophils % (Manual) 3 Lymphocytes % Lymphocytes % (Manual) 10 L Monocytes % Monocytes % (Manual) 15 H Eosinophils % Basophils % Basophils % (Manual) 1 Metamyelocytes % (manual) 3 H Myelocytes % (Manual) 1 H Promyelocytes % (Manual) 1 H Nucleated Red Blood Cells % 0.0 Immature Granulocytes # 0.580 H Neutrophils # Neutrophils # (Manual) 5.3 Band Neutrophils # 0.2 Lymphocytes (Manual) 0.8 Lymphocytes # Monocytes # Monocytes # (Manual) 1.2 H Eosinophils # Basophils # Basophils # (Manual) 0.0 Metamyelocytes # 0.2 H Myelocytes # 0.0 Promyelocytes # 0.0 Nucleated Red Blood Cells # Platelet Estimate NORMAL Giant Platelets 1 H Polychromasia 1+ Anisocytosis 1+ Macrocytosis 1+ Sodium Level 143 Potassium Level 3.6 Chloride Level 105 Carbon Dioxide Level 33 H Anion Gap 5 Blood Urea Nitrogen 41 H Creatinine 1.70 H Est Glomerular Filtrat Rate mL/min Glucose Level 103 Calcium Level 7.7 L Phosphorus Level 3.8 Magnesium Level 2.1 Total Bilirubin 0.3 Direct Bilirubin 0.00 Indirect Bilirubin 0.3 Aspartate Amino Transf (AST/SGOT) 63 H Alanine Aminotransferase (ALT/SGPT) 153 H Alkaline Phosphatase 118 Total Protein 5.1 L Albumin 2.5 L Globulin 2.60 Albumin/Globulin Ratio 0.96 Medications Medication Current Medications IV Flush (NS 3 ml) 3 ml PER PROTOCOL IV ; Start 08/29/18 at 06:00 Ondansetron HCl (Zofran Inj) 4 mg Q6H PRN IV NAUSEA/VOMITING Last administered on 08/31/18at 05:02; Admin Dose 4 MG; Start 08/29/18 at 06:00 Bisacodyl (Dulcolax Supp) 10 mg DAILY PRN [place] CONSTIPATION; Start 09/03/18 at 12:00 Heparin Sodium (Porcine) (Heparin (5000 Units/1ml)) 5,000 unit BID SC Last administered on 09/27/18at 09:09; Admin Dose 5,000 UNIT; Start 09/03/18 at 14:00 Hydralazine HCl (Apresoline) 10 mg Q3 PRN IV ELEVATED SYSTOLIC BP Last administered on 09/26/18at 08:26; Admin Dose 10 MG; Start 09/03/18 at 18:00 Albuterol/ Ipratropium (Duoneb) 3 ml Q2H RESP THERAPY PRN HHN SHORTNESS OF BREATH Last administered on 09/27/18 10:41; Admin Dose 3 ML; Start 09/03/18 at 20:00 Multivitamins (Multivitamin) 30 ml DAILY NGT Last administered on 09/27/18 08:59; Admin Dose 30 ML; Start 09/07/18 at 14:30 Ascorbic Acid (Vitamin C) 500 mg DAILY NGT Last administered on 09/27/18 08:59; Admin Dose 500 MG; Start 09/07/18 at 14:30 Petrolatum (Vaseline) APPLY TO MULTIPLE SC... BID TOP Last administered on 09/27/18 09:00; Admin Dose 1 APPLIC; Start 09/08/18 at 09:00 IV Flush (NS 10 ml) 10 ml PRN PRN IV FLUSH LINE; Start 09/09/18 at 11:30 Triamcinolone Acetonide (Kenalog 0.1% Cr) 1 applic BID TOP Last administered on 09/27/18 09:00; Admin Dose 1 APPLIC; Start 09/12/18 at 14:00 Mupirocin (Bactroban) 1 applic BID TOP Last administered on 09/27/18 09:00; Admin Dose 1 APPLIC; Start 09/20/18 at 11:30 Chlorhexidine Gluconate (Peridex) 15 ml BID MT Last administered on 09/27/18 08:59; Admin Dose 15 ML; Start 09/20/18 at 14:00 Docusate Sodium (Colace Liquid Cup) 100 mg BID PO Last administered on 09/27/18 08:59; Admin Dose 100 MG; Start 09/24/18 at 21:00 Escitalopram Oxalate (Lexapro) 20 mg DAILY PO Last administered on 09/27/18 08:59; Admin Dose 20 MG; Start 09/25/18 at 09:00 Acetaminophen (Tylenol Tab) 650 mg Q6H PRN PO .PAIN 1-3 OR TEMP; Start 09/25/18 at 13:00 Docusate Sodium (Colace Liquid Cup) 100 mg Q12H PRN PO .CONSTIPATION; Start 09/25/18 at 23:00 Folic Acid (Folic Acid) 1 mg DAILY PO Last administered on 09/27/18 09:00; Adm in Dose 1 MG; Start 09/26/18 at 09:00 Lactobacillus Acidophilus/ Rhamnosus (Culturelle) 1 cap BID PO Last administered on 09/27/18 08:59; Admin Dose 1 CAP; Start 09/25/18 at 21:00 Magnesium Hydroxide (Milk Of Mag) 30 ml DAILY PRN PO .CONSTIPATION; Start 09/25/18 at 13:00 Valacyclovir HCl (Valtrex) 500 mg BID PO Last administered on 09/27/18 08:59; Admin Dose 500 MG; Start 09/25/18 at 21:00 Zinc Sulfate (Zinc Sulfate) 220 mg DAILY PO Last administered on 09/27/18 08:59; Admin Dose 220 MG; Start 09/26/18 at 09:00 Pantoprazole (Protonix Tab) 40 mg BID@0600,1800 PO Last administered on 08/31 05:51; Admin Dose 40 MG; Start 09/25/18 at 18:00 Sevelamer Carbonate (Renvela) 800 mg WITH MEALS PO Last administered on 09/27/18 12:06; Admin Dose 800 MG; Start 09/25/18 at 17:55 Methylprednisolone Sodium Succinate (Solu-Medrol) 30 mg DAILY IV Last administered on 09/27/18 08:59; Admin Dose 30 MG; Start 09/26/18 at 09:00 Aspirin (Halfprin) 81 mg DAILY PO Last administered on 09/27/18 08:59; Admin Dose 81 MG; Start 09/26/18 at 09:00 Dextrose/Sodium Chloride 1,000 ml @ 20 mls/hr Q24H IV Last administered on 09/25/18 18:00; Admin Dose 40 MLS/HR; Start 09/25/18 at 17:00 Furosemide (Lasix) 40 mg DAILY@0600 IV Last administered on 09/27/18 05:51; Admin Dose 40 MG; Start 09/26/18 at 10:00 Albuterol/ Ipratropium (Duoneb) 3 ml Q4H RESP THERAPY HHN Last administered on 09/27/18 05:39; Admin Dose 3 ML; Start 09/26/18 at 13:00 Alprazolam (Xanax) 0.5 mg Q12H PRN PO ANXIETY; Start 09/26/18 at 11:00 Diltiazem HCl (Cardizem Iv) 5 mg Q1H PRN IV HR > 100; Start 09/26/18 at 16:00 Alprazolam (Xanax) 0.25 mg BID PO ; Start 09/27/18 at 21:00 BRIANNE MAS Sep 27, 2018 12:18
--- NOTE | 2018-09-27 12:37 | CONS ---
Consult Date/Type/Reason Admit Date/Time Aug 29, 2018 at 05:45 Initial Consult Date 09/07/18 Type of Consultation: cv Requesting Provider: SERGIO TREVINO MD Date/Time of Note DATE: 09/27/18 TIME: 12:36 Subjective Interventional cardiology follow-up progress note Subjective: Case discussed with the staff and telemetry was reviewed. Patient has remained in AFIB but HR is under fair control mostly Patient is on tele and remains in AFIB no report of any chest pain or pressure no bleeding is reported dW nephew and . multiple questions answered O General: Elderly gentleman. no acute distress HEENT: NC/AT. pupils are equal. round. NECK: NO JVD. no stridor. CV: irregularly irregular . systolic murmur; no gallop or rubs. PULM: no wheezing + rhonchi. GI: SOFT, NT, ND, no rebound or guarding Extremity: 1+ B/L LE edema. no clubbing. neuro: awake and alert Psych: calm rectal: deferred EKG normal sinus rhythm Chest x-ray on admission showed: 1. Right basilar interstitial opacities, new from the prior examination from a few hours prior, likely reflecting atelectasis. 2. Mild prominence of the interstitial markings, may reflect mild underlying interstitial edema or chronic lung changes. 3. Mild cardiomegaly and aortic atherosclerosis. Chest x-ray done on 09/06/2018 shows: 1. Atherosclerosis of the thoracic aorta. 2. Persistent bilateral pulmonary infiltrates which could represent infection or non infection related edema or combination of the 2. 3. Endotracheal and nasogastric tubes in place. CXR . 1. Findings suggestive of pulmonary vascular congestion with small bilateral pleural effusions. Lung aeration is improved when compared to the prior examination. 2. Mild cardiomegaly and aortic atherosclerosis. 3. Right upper extremity PICC line with tip near the cavoatrial junction. CXR 09/24: Patchy bilateral pulmonary air space disease consistent with pulmonary edema or bilateral pneumonia is unchanged. The heart is enlarged. There is calcification in the aorta consistent with atherosclerosis. There are small bilateral pleural effusions. Echocardiogram done on 08/29/2018 which was personally reviewed shows: There is mild to mod enlargement of left atrium. Normal left ventricular systolic function. Normal left ventricular cavity size. Normal left ventricular wall thickness. Ejection fraction is visually estimated at 60-65 %. Normal appearance of the mitral valve. Mild mitral valve regurgitation. Normal appearance of the aortic valve. No aortic regurgitation. Normal appearance of the tricuspid valve. The estimated Peak RVSP is 53 mmHg. There is mild tricuspid regurgitation. The IVC is not well visualized. Objective Vitals Vital Signs Date Temp Pulse Resp B/P (MAP) Pulse Ox O2 O2 Flow FiO2 Time Delivery Rate 09/27/18 98.3 79 18 138/74 96 11:59 (95) 09/27/18 Nasal 3.0 10:41 Cannula Intake and Output 09/26/18 09/26/18 09/27/18 1515:00 23:00 07:00 IntakeIntake Total 540 ml 350 ml OutputOutput Total 1150 ml 600 ml BalanceBalance -610 ml -250 ml Results/Medications Result Diagram: 09/27/18 0547 09/27/18 0547 Results 24 hrs Laboratory Tests Test 09/27/18 05:47 White Blood Count 8.0 Red Blood Count 3.39 L Hemoglobin 10.4 L Hematocrit 32.1 L Mean Corpuscular Volume 94.7 Mean Corpuscular Hemoglobin 30.7 Mean Corpuscular Hemoglobin Concent 32.4 Red Cell Distribution Width 15.2 H Platelet Count 329 Mean Platelet Volume 10.4 Immature Granulocytes % 7.300 H Neutrophils % Segmented Neutrophils % (Manual) 66 Band Neutrophils % (Manual) 3 Lymphocytes % Lymphocytes % (Manual) 10 L Monocytes % Monocytes % (Manual) 15 H Eosinophils % Basophils % Basophils % (Manual) 1 Metamyelocytes % (manual) 3 H Myelocytes % (Manual) 1 H Promyelocytes % (Manual) 1 H Nucleated Red Blood Cells % 0.0 Immature Granulocytes # 0.580 H Neutrophils # Neutrophils # (Manual) 5.3 Band Neutrophils # 0.2 Lymphocytes (Manual) 0.8 Lymphocytes # Monocytes # Monocytes # (Manual) 1.2 H Eosinophils # Basophils # Basophils # (Manual) 0.0 Metamyelocytes # 0.2 H Myelocytes # 0.0 Promyelocytes # 0.0 Nucleated Red Blood Cells # Platelet Estimate NORMAL Giant Platelets 1 H Polychromasia 1+ Anisocytosis 1+ Macrocytosis 1+ Sodium Level 143 Potassium Level 3.6 Chloride Level 105 Carbon Dioxide Level 33 H Anion Gap 5 Blood Urea Nitrogen 41 H Creatinine 1.70 H Est Glomerular Filtrat Rate mL/min Glucose Level 103 Calcium Level 7.7 L Phosphorus Level 3.8 Magnesium Level 2.1 Total Bilirubin 0.3 Direct Bilirubin 0.00 Indirect Bilirubin 0.3 Aspartate Amino Transf (AST/SGOT) 63 H Alanine Aminotransferase (ALT/SGPT) 153 H Alkaline Phosphatase 118 Total Protein 5.1 L Albumin 2.5 L Globulin 2.60 Albumin/Globulin Ratio 0.96 Home Meds Reported Medications Losartan Potassium* (Losartan Potassium*) 50 Mg Tablet, 50 MG PO DAILY, TAB 08/29/18 Simvastatin (Simvastatin) 20 Mg Tablet, 20 MG PO QHS for 90 Days, #90 08/29/18 Furosemide* (Furosemide*) 40 Mg Tablet, 40 MG PO DAILY for 90 Days, #90 08/29/18 Potassium Chloride (K-Tab ER) 8 Meq Tablet.er, 8 MEQ PO BID for 90 Days, #180 08/29/18 Escitalopram Oxalate* (Escitalopram Oxalate*) 10 Mg Tablet, 20 MG PO DAILY for 90 Days, #90 08/29/18 Hydrocodone Bit-Acetaminophen (Hydrocodone Bit-APAP) 5-325MG Tablet, 1 TAB PO DAILY 08/29/18 Dexlansoprazole (Dexilant) 60 Mg Cap., 60 MG PO DAILY for 90 Days, #90 08/29/18 Amiodarone Hcl* (Amiodarone Hcl*) 200 Mg Tablet, 200 MG PO DAILY for 90 Days, #90 08/29/18 Alprazolam* (Alprazolam*) 0.5 Mg Tablet, 0.5 MG PO QHS for 30 Days, #30 08/29/18 Medications Current Medications IV Flush (NS 3 ml) 3 ml PER PROTOCOL IV ; Start 08/29/18 at 06:00 Ondansetron HCl (Zofran Inj) 4 mg Q6H PRN IV NAUSEA/VOMITING Last administered on 08/31/18at 05:02; Admin Dose 4 MG; Start 08/29/18 at 06:00 Bisacodyl (Dulcolax Supp) 10 mg DAILY PRN [place] CONSTIPATION; Start 09/03/18 at 12:00 Heparin Sodium (Porcine) (Heparin (5000 Units/1ml)) 5,000 unit BID SC Last administered on 09/27/18at 09:09; Admin Dose 5,000 UNIT; Start 09/03/18 at 14:00 Hydralazine HCl (Apresoline) 10 mg Q3 PRN IV ELEVATED SYSTOLIC BP Last administered on 09/26/18 08:26; Admin Dose 10 MG; Start 09/03/18 at 18:00 Albuterol/ Ipratropium (Duoneb) 3 ml Q2H RESP THERAPY PRN HHN SHORTNESS OF BREATH Last administered on 09/27/18 10:41; Admin Dose 3 ML; Start 09/03/18 at 20:00 Multivitamins (Multivitamin) 30 ml DAILY NGT Last administered on 09/27/18 08:59; Admin Dose 30 ML; Start 09/07/18 at 14:30 Ascorbic Acid (Vitamin C) 500 mg DAILY NGT Last administered on 09/27/18 08:59; Admin Dose 500 MG; Start 09/07/18 at 14:30 Petrolatum (Vaseline) APPLY TO MULTIPLE SC... BID TOP Last administered on 09/27/18 09:00; Admin Dose 1 APPLIC; Start 09/08/18 at 09:00 IV Flush (NS 10 ml) 10 ml PRN PRN IV FLUSH LINE; Start 09/09/18 at 11:30 Triamcinolone Acetonide (Kenalog 0.1% Cr) 1 applic BID TOP Last administered on 09/27/18 09:00; Admin Dose 1 APPLIC; Start 09/12/18 at 14:00 Mupirocin (Bactroban) 1 applic BID TOP Last administered on 09/27/18 09:00; Admin Dose 1 APPLIC; Start 09/20/18 at 11:30 Chlorhexidine Gluconate (Peridex) 15 ml BID MT Last administered on 09/27/18 08:59; Admin Dose 15 ML; Start 09/20/18 at 14:00 Docusate Sodium (Colace Liquid Cup) 100 mg BID PO Last administered on 09/27/18 at 08:59; Admin Dose 100 MG; Start 09/24/18 at 21:00 Escitalopram Oxalate (Lexapro) 20 mg DAILY PO Last administered on 09/27/18 08:59; Admin Dose 20 MG; Start 09/25/18 at 09:00 Acetaminophen (Tylenol Tab) 650 mg Q6H PRN PO .PAIN 1-3 OR TEMP; Start 09/25/18 at 13:00 Docusate Sodium (Colace Liquid Cup) 100 mg Q12H PRN PO .CONSTIPATION; Start 09/25/18 at 23:00 Folic Acid (Folic Acid) 1 mg DAILY PO Last administered on 09/27/18 09:00; Admin Dose 1 MG; Start 09/26/18 at 09:00 Lactobacillus Acidophilus/ Rhamnosus (Culturelle) 1 cap BID PO Last administered on 09/27/18 08:59; Admin Dose 1 CAP; Start 09/25/18 at 21:00 Magnesium Hydroxide (Milk Of Mag) 30 ml DAILY PRN PO .CONSTIPATION; Start 09/25/18 at 13:00 Valacyclovir HCl (Valtrex) 500 mg BID PO Last administered on 09/27/18 08:59; Admin Dose 500 MG; Start 09/25/18 at 21:00 Zinc Sulfate (Zinc Sulfate) 220 mg DAILY PO Last administered on 09/27/18 08:59; Admin Dose 220 MG; Start 09/26/18 at 09:00 Pantoprazole (Protonix Tab) 40 mg BID@0600,1800 PO Last administered on 09/27/18 05:51; Admin Dose 40 MG; Start 09/25/18 at 18:00 Sevelamer Carbonate (Renvela) 800 mg WITH MEALS PO Last administered on 09/27/18 12:06; Admin Dose 800 MG; Start 09/25/18 at 17:55 Methylprednisolone Sodium Succinate (Solu-Medrol) 30 mg DAILY IV Last administered on 09/27/18 08:59; Admin Dose 30 MG; Start 09/26/18 at 09:00 Aspirin (Halfprin) 81 mg DAILY PO Last administered on 09/27/18 08:59; Admin Dose 81 MG; Start 09/26/18 at 09:00 Dextrose/Sodium Chloride 1,000 ml @ 20 mls/hr Q24H IV Last administered on 09/25/18 18:00; Admin Dose 40 MLS/HR; Start 09/25/18 at 17:00 Furosemide (Lasix) 40 mg DAILY@0600 IV Last administered on 09/27/18 05:51; Admin Dose 40 MG; Start 09/26/18 at 10:00 Albuterol/ Ipratropium (Duoneb) 3 ml Q4H RESP THERAPY HHN Last administered on 09/27/18 05:39; Admin Dose 3 ML; Start 09/26/18 at 13:00 Alprazolam (Xanax) 0.5 mg Q12H PRN PO ANXIETY; Start 09/26/18 at 11:00 Diltiazem HCl (Cardizem Iv) 5 mg Q1H PRN IV HR > 100; Start 09/26/18 at 16:00 Alprazolam (Xanax) 0.25 mg BID PO ; Start 09/27/18 at 21:00 Assessment/Plan Hospital Course (Demo Recall) 1. sick sinus with Marked sinus bradycardia: NOW IN AFIB 2. Acute hypoxemic respiratory failure status post intubation on the vent 3. Pulmonary hypertension 4. History of proximal atrial fibrillation: currently has remained in normal sinus rhythm/sinus bradycardia 5. Hypertension 6. Urinary retention status post surgery 7. Pneumonia possible COPD possible ARDS 8. Acute renal failure 9. P-AFIB 10. CHF/ fluid overload 11. Dysphagia Recommendations: pt has been taken off the amiodarone given his marked bradycardia as well as his significant pulmonary disease. Continue blood pressure control. Respiratory care to be continued. Antibiotic management as per internal medicine consultants We will continue to monitor on telemetry thyroid management as per IM . TSH was normal as of 09/12/18 Antibiotic as per internal medicine will start full anticoagulation with eliquis 2.5 bid instead of ASA diuresis as per renal prn IV dig prn will start cardizem po Thank you for his referral. We will continue to follow along with you AMANDA DUNBAR MD [facility] AMANDA DUNBAR MD Sep 27, 2018 12:37
[2018-09-27] MEDS: DILTIAZEM 30 MG TAB NGT SCH ×2 (14:00→21:34)
--- NOTE | 2018-09-27 16:52 | CONS ---
Assessment/Plan Assessment/Plan Assessment/Plan (Daily) ssessment/Plan Hospital Course (Demo Recall) 87 yo male 1. Anemia with dark color stool and positive stool guaiac, most probably related to GI bleeding. -s/p EGD and colonoscopy -HH stable. 2. Renal insufficiency, which is stable. 3. Respiratory failure from the pneumonia and possible CHF. Patient might be aspirating also 4. COPD 5. Critical care myopathy. 6. Status post surgery for the prostate and suprapubic catheter. 7. Multiple wounds. 8. The patient's 2D echocardiogram shows a 65% ejection fraction. 9. Acute gastritis 10. Polyp removed in descending colon during colonoscopy 11. Dysphagia Tolerating p.o. diet pure as per the staff. As per the son patient ate well yesterday Plan Continue present care aspiration precaution Diuretic, supplemental oxygen Patient is on pured diet Consultation Date/Type/Reason Admit Date/Time Aug 29, 2018 at 05:45 Initial Consult Date 09/07/18 Requesting Provider: SERGIO TREVINO MD Date/Time of Note DATE: 09/27/18 TIME: 16:51 24 HR Interval Summary Free Text/Dictation Breathing much better no wheeze Patient is on pured diet Constitutional: no complaints, improved Exam/Review of Systems Exam Vitals Vital Signs Date Temp Pulse Resp B/P (MAP) Pulse Ox O2 O2 Flow FiO2 Time Delivery Rate 09/27/18 97.8 96 17 150/70 95 15:27 (96) 09/27/18 Nasal 3.0 14:31 Cannula Intake and Output 09/26/18 09/26/18 09/27/18 1515:00 23:00 07:00 IntakeIntake Total 540 ml 350 ml OutputOutput Total 1150 ml 600 ml BalanceBalance -610 ml -250 ml Constitutional: alert, oriented Respiratory: diminished breath sounds Musculoskeletal: nl extremities to inspection, nl gait and stance Extremities: normal pulses Results Result Diagram: 09/27/18 0547 09/27/18 0547 Results 24hrs Laboratory Tests Test 09/27/18 05:47 White Blood Count 8.0 Red Blood Count 3.39 L Hemoglobin 10.4 L Hematocrit 32.1 L Mean Corpuscular Volume 94.7 Mean Corpuscular Hemoglobin 30.7 Mean Corpuscular Hemoglobin Concent 32.4 Red Cell Distribution Width 15.2 H Platelet Count 329 Mean Platelet Volume 10.4 Immature Granulocytes % 7.300 H Neutrophils % Segmented Neutrophils % (Manual) 66 Band Neutrophils % (Manual) 3 Lymphocytes % Lymphocytes % (Manual) 10 L Monocytes % Monocytes % (Manual) 15 H Eosinophils % Basophils % Basophils % (Manual) 1 Metamyelocytes % (manual) 3 H Myelocytes % (Manual) 1 H Promyelocytes % (Manual) 1 H Nucleated Red Blood Cells % 0.0 Immature Granulocytes # 0.580 H Neutrophils # Neutrophils # (Manual) 5.3 Band Neutrophils # 0.2 Lymphocytes (Manual) 0.8 Lymphocytes # Monocytes # Monocytes # (Manual) 1.2 H Eosinophils # Basophils # Basophils # (Manual) 0.0 Metamyelocytes # 0.2 H Myelocytes # 0.0 Promyelocytes # 0.0 Nucleated Red Blood Cells # Platelet Estimate NORMAL Giant Platelets 1 H Polychromasia 1+ Anisocytosis 1+ Macrocytosis 1+ Sodium Level 143 Potassium Level 3.6 Chloride Level 105 Carbon Dioxide Level 33 H Anion Gap 5 Blood Urea Nitrogen 41 H Creatinine 1.70 H Est Glomerular Filtrat Rate mL/min Glucose Level 103 Calcium Level 7.7 L Phosphorus Level 3.8 Magnesium Level 2.1 Total Bilirubin 0.3 Direct Bilirubin 0.00 Indirect Bilirubin 0.3 Aspartate Amino Transf (AST/SGOT) 63 H Alanine Aminotransferase (ALT/SGPT) 153 H Alkaline Phosphatase 118 Total Protein 5.1 L Albumin 2.5 L Globulin 2.60 Albumin/Globulin Ratio 0.96 Medications Medication Current Medications IV Flush (NS 3 ml) 3 ml PER PROTOCOL IV ; Start 08/29/18 at 06:00 Ondansetron HCl (Zofran Inj) 4 mg Q6H PRN IV NAUSEA/VOMITING Last administered on 08/31/18at 05:02; Admin Dose 4 MG; Start 08/29/18 at 06:00 Bisacodyl (Dulcolax Supp) 10 mg DAILY PRN [place] CONSTIPATION; Start 09/03/18 at 12:00 Hydralazine HCl (Apresoline) 10 mg Q3 PRN IV ELEVATED SYSTOLIC BP Last administered on 09/26/18at 08:26; Admin Dose 10 MG; Start 09/03/18 at 18:00 Albuterol/ Ipratropium (Duoneb) 3 ml Q2H RESP THERAPY PRN HHN SHORTNESS OF BR EATH Last administered on 09/27/18 10:41; Admin Dose 3 ML; Start 09/03/18 at 20:00 Multivitamins (Multivitamin) 30 ml DAILY NGT Last administered on 09/27/18 08:59; Admin Dose 30 ML; Start 09/07/18 at 14:30 Ascorbic Acid (Vitamin C) 500 mg DAILY NGT Last administered on 09/27/18 08:59; Admin Dose 500 MG; Start 09/07/18 at 14:30 Petrolatum (Vaseline) APPLY TO MULTIPLE SC... BID TOP Last administered on 09/27/18 09:00; Admin Dose 1 APPLIC; Start 09/08/18 at 09:00 IV Flush (NS 10 ml) 10 ml PRN PRN IV FLUSH LINE; Start 09/09/18 at 11:30 Triamcinolone Acetonide (Kenalog 0.1% Cr) 1 applic BID TOP Last administered on 09/27/18 09:00; Admin Dose 1 APPLIC; Start 09/12/18 at 14:00 Mupirocin (Bactroban) 1 applic BID TOP Last administered on 09/27/18 09:00; Admin Dose 1 APPLIC; Start 09/20/18 at 11:30 Chlorhexidine Gluconate (Peridex) 15 ml BID MT Last administered on 09/27/18 08:59; Admin Dose 15 ML; Start 09/20/18 at 14:00 Docusate Sodium (Colace Liquid Cup) 100 mg BID PO Last administered on 09/27/18 08:59; Admin Dose 100 MG; Start 09/24/18 at 21:00 Escitalopram Oxalate (Lexapro) 20 mg DAILY PO Last administered on 09/27/18 08:59; Admin Dose 20 MG; Start 09/25/18 at 09:00 Acetaminophen (Tylenol Tab) 650 mg Q6H PRN PO .PAIN 1-3 OR TEMP; Start 09/25/18 at 13:00 Docusate Sodium (Colace Liquid Cup) 100 mg Q12H PRN PO .CONSTIPATION; Start 09/25/18 at 23:00 Folic Acid (Folic Acid) 1 mg DAILY PO Last administered on 09/27/18 09:00; Admin Dose 1 MG; Start 09/26/18 at 09:00 Lactobacillus Acidophilus/ Rhamnosus (Culturelle) 1 cap BID PO Last administered on 09/27/18 08:59; Admin Dose 1 CAP; Start 09/25/18 at 21:00 Magnesium Hydroxide (Milk Of Mag) 30 ml DAILY PRN PO .CONSTIPATION; Start 09/25/18 at 13:00 Valacyclovir HCl (Valtrex) 500 mg BID PO Last administered on 09/27/18 08:59; Admin Dose 500 MG; Start 09/25/18 at 21:00 Zinc Sulfate (Zinc Sulfate) 220 mg DAILY PO Last administered on 09/27/18 08:59; Admin Dose 220 MG; Start 09/26/18 at 09:00 Pantoprazole (Protonix Tab) 40 mg BID@0600,1800 PO Last administered on 09/27/18 05:51; Admin Dose 40 MG; Start 09/25/18 at 18:00 Sevelamer Carbonate (Renvela) 800 mg WITH MEALS PO Last administered on 9at 12:06; Admin Dose 800 MG; Start 09/25/18 at 17:55 Methylprednisolone Sodium Succinate (Solu-Medrol) 30 mg DAILY IV Last administered on 09/27/18 08:59; Admin Dose 30 MG; Start 09/26/18 at 09:00 Dextrose/Sodium Chloride 1,000 ml @ 20 mls/hr Q24H IV Last administered on 09/25/18 18:00; Admin Dose 40 MLS/HR; Start 09/25/18 at 17:00 Furosemide (Lasix) 40 mg DAILY@0600 IV Last administered on 09/27/18 05:51; Admin Dose 40 MG; Start 09/26/18 at 10:00 Albuterol/ Ipratropium (Duoneb) 3 ml Q4H RESP THERAPY HHN Last administered on 09/27/18 14:24; Admin Dose 3 ML; Start 09/26/18 at 13:00 Diltiazem HCl (Cardizem Iv) 5 mg Q1H PRN IV HR > 100; Start 09/26/18 at 16:00 Alprazolam (Xanax) 0.25 mg BID PO ; Start 09/27/18 at 21:00 Diltiazem HCl (Cardizem) 30 mg Q8 NGT Last administered on 09/27/18 14:00; Admin Dose 30 MG; Start 09/27/18 at 14:00 Apixaban (Eliquis) 2.5 mg BID PO ; Start 09/27/18 at 21:00 TOOTIE HERNANDEZ MD Sep 27, 2018 16:51
[2018-09-27] MEDS: DEXTROSE 5%-0.45% NACL 1,000 ML IV SCH (17:25)
--- NOTE | 2018-09-27 17:40 | CONS ---
Consult Date/Type/Reason Admit Date/Time Aug 29, 2018 at 05:45 Initial Consult Date 09/07/18 Type of Consultation: Pulm Requesting Provider: SERGIO TREVINO MD Date/Time of Note DATE: 09/27/18 TIME: 17:38 Subjective Overall appears improved. Objective Vitals Vital Signs Date Temp Pulse Resp B/P (MAP) Pulse Ox O2 O2 Flow FiO2 Time Delivery Rate 09/27/18 94 20 98 Nasal 3.0 17:06 Cannula 09/27/18 97.8 150/70 15:27 (96) Intake and Output 09/26/18 09/26/18 09/27/18 1515:00 23:00 07:00 IntakeIntake Total 540 ml 350 ml OutputOutput Total 1150 ml 600 ml BalanceBalance -610 ml -250 ml Exam NECK: Supple. No JVD or lymphadenopathy. CARDIAC EXAM: Irreg irreg S1, S2. No added sounds or murmurs. CHEST: Diminished air entry bilaterally with few expiratory wheezes ABDOMEN: Soft, nontender. No guarding or rebound. EXTREMITIES: No cyanosis, clubbing edema +1 NEUROLOGIC: Generalized weakness. No focal deficits Results/Medications Result Diagram: 09/27/18 0547 09/27/18 0547 Results 24 hrs Laboratory Tests Test 09/27/18 05:47 White Blood Count 8.0 Red Blood Count 3.39 L Hemoglobin 10.4 L Hematocrit 32.1 L Mean Corpuscular Volume 94.7 Mean Corpuscular Hemoglobin 30.7 Mean Corpuscular Hemoglobin Concent 32.4 Red Cell Distribution Width 15.2 H Platelet Count 329 Mean Platelet Volume 10.4 Immature Granulocytes % 7.300 H Neutrophils % Segmented Neutrophils % (Manual) 66 Band Neutrophils % (Manual) 3 Lymphocytes % Lymphocytes % (Manual) 10 L Monocytes % Monocytes % (Manual) 15 H Eosinophils % Basophils % Basophils % (Manual) 1 Metamyelocytes % (manual) 3 H Myelocytes % (Manual) 1 H Promyelocytes % (Manual) 1 H Nucleated Red Blood Cells % 0.0 Immature Granulocytes # 0.580 H Neutrophils # Neutrophils # (Manual) 5.3 Band Neutrophils # 0.2 Lymphocytes (Manual) 0.8 Lymphocytes # Monocytes # Monocytes # (Manual) 1.2 H Eosinophils # Basophils # Basophils # (Manual) 0.0 Metamyelocytes # 0.2 H Myelocytes # 0.0 Promyelocytes # 0.0 Nucleated Red Blood Cells # Platelet Estimate NORMAL Giant Platelets 1 H Polychromasia 1+ Anisocytosis 1+ Macrocytosis 1+ Sodium Level 143 Potassium Level 3.6 Chloride Level 105 Carbon Dioxide Level 33 H Anion Gap 5 Blood Urea Nitrogen 41 H Creatinine 1.70 H Est Glomerular Filtrat Rate mL/min Glucose Level 103 Calcium Level 7.7 L Phosphorus Level 3.8 Magnesium Level 2.1 Total Bilirubin 0.3 Direct Bilirubin 0.00 Indirect Bilirubin 0.3 Aspartate Amino Transf (AST/SGOT) 63 H Alanine Aminotransferase (ALT/SGPT) 153 H Alkaline Phosphatase 118 Total Protein 5.1 L Albumin 2.5 L Globulin 2.60 Albumin/Globulin Ratio 0.96 Home Meds Reported Medications Losartan Potassium* (Losartan Potassium*) 50 Mg Tablet, 50 MG PO DAILY, TAB 08/29/18 Simvastatin (Simvastatin) 20 Mg Tablet, 20 MG PO QHS for 90 Days, #90 08/29/18 Furosemide* (Furosemide*) 40 Mg Tablet, 40 MG PO DAILY for 90 Days, #90 08/29/18 Potassium Chloride (K-Tab ER) 8 Meq Tablet.er, 8 MEQ PO BID for 90 Days, #180 08/29/18 Escitalopram Oxalate* (Escitalopram Oxalate*) 10 Mg Tablet, 20 MG PO DAILY for 90 Days, #90 08/29/18 Hydrocodone Bit-Acetaminophen (Hydrocodone Bit-APAP) 5-325MG Tablet, 1 TAB PO DA SHAZIA 08/29/18 Dexlansoprazole (Dexilant) 60 Mg Tree., 60 MG PO DAILY for 90 Days, #90 08/29/18 Amiodarone Hcl* (Amiodarone Hcl*) 200 Mg Tablet, 200 MG PO DAILY for 90 Days, #90 08/29/18 Alprazolam* (Alprazolam*) 0.5 Mg Tablet, 0.5 MG PO QHS for 30 Days, #30 08/29/18 Medications Current Medications IV Flush (NS 3 ml) 3 ml PER PROTOCOL IV ; Start 08/29/18 at 06:00 Ondansetron HCl (Zofran Inj) 4 mg Q6H PRN IV NAUSEA/VOMITING Last administered on 08/31/18at 05:02; Admin Dose 4 MG; Start 08/29/18 at 06:00 Bisacodyl (Dulcolax Supp) 10 mg DAILY PRN [place] CONSTIPATION; Start 09/03/18 at 12:00 Hydralazine HCl (Apresoline) 10 mg Q3 PRN IV ELEVATED SYSTOLIC BP Last administered on 09/26/18 08:26; Admin Dose 10 MG; Start 09/03/18 at 18:00 Albuterol/ Ipratropium (Duoneb) 3 ml Q2H RESP THERAPY PRN HHN SHORTNESS OF BREATH Last administered on 09/27/18 10:41; Admin Dose 3 ML; Start 09/03/18 at 20:00 Multivitamins (Multivitamin) 30 ml DAILY NGT Last administered on 09/27/18 08:59; Admin Dose 30 ML; Start 09/07/18 at 14:30 Ascorbic Acid (Vitamin C) 500 mg DAILY NGT Last administered on 09/27/18 0 8:59; Admin Dose 500 MG; Start 09/07/18 at 14:30 Petrolatum (Vaseline) APPLY TO MULTIPLE SC... BID TOP Last administered on 09/27/18 09:00; Admin Dose 1 APPLIC; Start 09/08/18 at 09:00 IV Flush (NS 10 ml) 10 ml PRN PRN IV FLUSH LINE; Start 09/09/18 at 11:30 Triamcinolone Acetonide (Kenalog 0.1% Cr) 1 applic BID TOP Last administered on 09/27/18 09:00; Admin Dose 1 APPLIC; Start 09/12/18 at 14:00 Mupirocin (Bactroban) 1 applic BID TOP Last administered on 09/27/18 09:00; Admin Dose 1 APPLIC; Start 09/20/18 at 11:30 Chlorhexidine Gluconate (Peridex) 15 ml BID MT Last administered on 09/27/18 08:59; Admin Dose 15 ML; Start 09/20/18 at 14:00 Docusate Sodium (Colace Liquid Cup) 100 mg BID PO Last administered on 09/27/18 08:59; Admin Dose 100 MG; Start 09/24/18 at 21:00 Escitalopram Oxalate (Lexapro) 20 mg DAILY PO Last administered on 09/27/18 08:59; Admin Dose 20 MG; Start 09/25/18 at 09:00 Acetaminophen (Tylenol Tab) 650 mg Q6H PRN PO .PAIN 1-3 OR TEMP; Start 09/25/18 at 13:00 Docusate Sodium (Colace Liquid Cup) 100 mg Q12H PRN PO .CONSTIPATION; Start 09/25/18 at 23:00 Folic Acid (Folic Acid) 1 mg DAILY PO Last administered on 09/27/18 09:00; Admin Dose 1 MG; Start 09/26/18 at 09:00 Lactobacillus Acidophilus/ Rhamnosus (Culturelle) 1 cap BID PO Last administered on 09/27/18 08:59; Admin Dose 1 CAP; Start 09/25/18 at 21:00 Magnesium Hydroxide (Milk Of Mag) 30 ml DAILY PRN PO .CONSTIPATION; Start 09/25/18 at 13:00 Valacyclovir HCl (Valtrex) 500 mg BID PO Last administered on 09/27/18 08:59; Admin Dose 500 MG; Start 09/25/18 at 21:00 Zinc Sulfate (Zinc Sulfate) 220 mg DAILY PO Last administered on 09/27/18 08:59; Admin Dose 220 MG; Start 09/26/18 at 09:00 Pantoprazole (Protonix Tab) 40 mg BID@0600,1800 PO Last administered on 09/27/18 17:26; Admin Dose 40 MG; Start 09/25/18 at 18:00 Sevelamer Carbonate (Renvela) 800 mg WITH MEALS PO Last administered on 09/27/18 17:26; Admin Dose 800 MG; Start 09/25/18 at 17:55 Methylprednisolone Sodium Succinate (Solu-Medrol) 30 mg DAILY IV Last administered on 09/27/18 08:59; Admin Dose 30 MG; Start 09/26/18 at 09:00 Dextrose/Sodium Chloride 1,000 ml @ 20 mls/hr Q24H IV Last administered on 09/27/18 17:25; Admin Dose 20 MLS/HR; Start 09/25/18 at 17:00 Furosemide (Lasix) 40 mg DAILY@0600 IV Last administered on 09/27/18 05:51; Admin Dose 40 MG; Start 09/26/18 at 10:00 Albuterol/ Ipratropium (Duoneb) 3 ml Q4H RESP THERAPY HHN Last administered on 09/27/18 17:06; Admin Dose 3 ML; Start 09/26/18 at 13:00 Diltiazem HCl (Cardizem Iv) 5 mg Q1H PRN IV HR > 100; Start 09/26/18 at 16:00 Alprazolam (Xanax) 0.25 mg BID PO ; Start 09/27/18 at 21:00 Diltiazem HCl (Cardizem) 30 mg Q8 NGT Last administered on 09/27/18at 14:00; Admin Dose 30 MG; Start 09/27/18 at 14:00 Apixaban (Eliquis) 2.5 mg BID PO ; Start 09/27/18 at 21:00 Assessment/Plan Assessment/Plan (Daily) IMP: 1. s/p Acute hypoxemic respiratory failure likely secondary to combination of pneumonia and CHF 2. COPD with possible exacerbation currently on steroids 3. History of renal insufficiency 4. Hypernatremia 5. Encephalopathy toxic metabolic, appears to be resolving RECS: 1. Continue BD's 2. Mobilize OOB 3. Keep I<O's with lasix prn 4. Aspiration precautions 5. Diet advanced as tolerated MICAELA AGUILERA MD Sep 27, 2018 17:40
[2018-09-27] MEDS: APIXABAN 5 MG TABLET PO SCH (21:33)
[2018-09-27] MEDS: ALPRAZOLAM 0.25 MG TAB PO SCH (21:33)
[2018-09-28] VITALS (7 sets, daily range): BP systolic 137–176; BP diastolic 56–83; PULSE 72–99; RESP 17–20
[2018-09-28] MEDS: ALBUTEROL/IPRATROPIUM (NEB) 3 ML AMP HHN SCH ×6 (00:26→21:52)
[2018-09-28] MEDS: hydrALAzine 20 MG INJ IV PRN (06:22)
[2018-09-28] MEDS: FUROSEMIDE 40 MG INJ IV SCH (06:22)
[2018-09-28] MEDS: DILTIAZEM 30 MG TAB NGT SCH ×3 (06:23→21:31)
[2018-09-28] MEDS: PANTOPRAZOLE (EC) 40 MG TAB PO SCH ×2 (06:23→17:44)
--- NOTE | 2018-09-28 07:43 | CONS ---
Assessment/Plan Assessment/Plan Hospital Course (Demo Recall) 87 yo male 1. Anemia with dark color stool and positive stool guaiac, most probably related to GI bleeding. -s/p EGD and colonoscopy -HH stable. 2. Renal insufficiency, which is stable. 3. Respiratory failure from the pneumonia 4. COPD 5. Critical care myopathy. 6. Status post surgery for the prostate and suprapubic catheter. 7. Multiple wounds. 8. The patient's 2D echocardiogram shows a 65% ejection fraction. 9. Acute gastritis 10. Polyp removed in descending colon during colonoscopy 11. Dysphagia -Speech therapy does not recommend PO feeding. Colon polyp at 60 cm, biopsy: -- Diminutive tubular adenoma. -- Normal mucosa is also present. -- There is no evidence of malignancy. Gastric antral biopsies: -- Gastric antral type mucosa with polypoid foveolar hyperplasia. -- Oxyntic gastric mucosa with parietal cell hyperplasia with rare dilated gland. -- A Giemsa stain with an appropriate control, is negative for H. pylori organisms. -- No malignancy, dysplasia or intestinal metaplasia is identified. Plan Aspiration precautions Continue pureed diet as tolerated Monitor LFTs, abd US Pt is on eliquis, please monitor for GI bleeding Follow up with Dr Rosales as outpatient Pt examined and plan of care d/w Dr Rosales Consultation Date/Type/Reason Admit Date/Time Aug 29, 2018 at 05:45 Initial Consult Date 09/07/18 Requesting Provider: SERGIO TREVINO MD Date/Time of Note DATE: 09/28/18 TIME: 07:39 Exam/Review of Systems Exam Vitals Vital Signs Date Temp Pulse Resp B/P (MAP) Pulse Ox O2 O2 Flow FiO2 Time Delivery Rate 09/28/18 86 20 97 Nasal 3.0 04:43 Cannula 09/28/18 97.8 176/77 04:00 (110) Intake and Output 09/27/18 09/27/18 09/28/18 1515:00 23:00 07:00 IntakeIntake Total 120 ml 270 ml 540 ml OutputOutput Total 900 ml 700 ml BalanceBalance 120 ml -630 ml -160 ml Constitutional: alert Psych: no complaints Head: normocephalic Eyes: nl sclera, PERRL ENMT: mucosa pink and moist Respiratory: normal air movement Cardiovascular: regular rate and rhythm Gastrointestinal: soft, non-tender Musculoskeletal: nl gait and stance, muscle weakness Results Result Diagram: 09/28/18 0544 09/28/18 0543 Results 24hrs Laboratory Tests Test 09/28/18 05:43 09/28/18 05:44 Sodium Level 143 Potassium Level 3.4 L Chloride Level 105 Carbon Dioxide Level 35 H Anion Gap 3 L Blood Urea Nitrogen 36 H Creatinine 1.50 H Est Glomerular Filtrat Rate mL/min Glucose Level 99 Calcium Level 8.0 L Phosphorus Level 3.9 Magnesium Level 1.9 B-Type Natriuretic Peptide 7200 H White Blood Count 8.9 Red Blood Count 3.66 L Hemoglobin 11.3 L Hematocrit 35.2 L Mean Corpuscular Volume 96.2 Mean Corpuscular Hemoglobin 30.9 Mean Corpuscular Hemoglobin Concent 32.1 Red Cell Distribution Width 15.1 H Platelet Count 344 Mean Platelet Volume 10.0 Immature Granulocytes % 11.200 H Neutrophils % 60.8 Lymphocytes % 15.1 Monocytes % 11.6 H Eosinophils % 0.7 Basophils % 0.6 Nucleated Red Blood Cells % 0.0 Immature Granulocytes # 1.000 H Neutrophils # 5.4 Lymphocytes # 1.3 Monocytes # 1.0 H Eosinophils # 0.1 Basophils # 0.1 Nucleated Red Blood Cells # 0.0 Medications Medication Current Medications IV Flush (NS 3 ml) 3 ml PER PROTOCOL IV ; Start 08/29/18 at 06:00 Ondansetron HCl (Zofran Inj) 4 mg Q6H PRN IV NAUSEA/VOMITING Last administered on 08/31/18at 05:02; Admin Dose 4 MG; Start 08/29/18 at 06:00 Bisacodyl (Dulcolax Supp) 10 mg DAILY PRN [place] CONSTIPATION; Start 09/03/18 at 12:00 Hydralazine HCl (Apresoline) 10 mg Q3 PRN IV ELEVATED SYSTOLIC BP Last administered on 09/28/18at 06:22; Admin Dose 10 MG; Start 09/03/18 at 18:00 Albuterol/ Ipratropium (Duoneb) 3 ml Q2H RESP THERAPY PRN HHN SHORTNESS OF BREATH Last administered on 09/27/18at 10:41; Admin Dose 3 ML; Start 09/03/18 at 20:00 Multivitamins (Multivitamin) 30 ml DAILY NGT Last administered on 09/27/18at 08:59; Admin Dose 30 ML; Start 09/07/18 at 14:30 Ascorbic Acid (Vitamin C) 500 mg DAILY NGT Last administered on 09/27/18 08:59; Admin Dose 500 MG; Start 09/07/18 at 14:30 Petrolatum (Vaseline) APPLY TO MULTIPLE SC... BID TOP Last administered on 09/27/18 21:32; Admin Dose 1 APPLIC; Start 09/08/18 at 09:00 IV Flush (NS 10 ml) 10 ml PRN PRN IV FLUSH LINE; Start 09/09/18 at 11:30 Triamcinolone Acetonide (Kenalog 0.1% Cr) 1 applic BID TOP Last administered on 09/27/18 21:34; Admin Dose 1 APPLIC; Start 09/12/18 at 14:00 Mupirocin (Bactroban) 1 applic BID TOP Last administered on 09/27/18 21:34; Admin Dose 1 APPLIC; Start 09/20/18 at 11:30 Chlorhexidine Gluconate (Peridex) 15 ml BID MT Last administered on 09/27/18 21:32; Admin Dose 15 ML; Start 09/20/18 at 14:00 Docusate Sodium (Colace Liquid Cup) 100 mg BID PO Last administered on 09/27/18 08:59; Admin Dose 100 MG; Start 09/24/18 at 21:00 Escitalopram Oxalate (Lexapro) 20 mg DAILY PO Last administered on 09/27/18 08:59; Admin Dose 20 MG; Start 09/25/18 at 09:00 Acetaminophen (Tylenol Tab) 650 mg Q6H PRN PO .PAIN 1-3 OR TEMP; Start 09/25/18 at 13:00 Docusate Sodium (Colace Liquid Cup) 100 mg Q12H PRN PO .CONSTIPATION; Start 09/25/18 at 23:00 Folic Acid (Folic Acid) 1 mg DAILY PO Last administered on 09/27/18 09:00; Admin Dose 1 MG; Start 09/26/18 at 09:00 Lactobacillus Acidophilus/ Rhamnosus (Culturelle) 1 cap BID PO Last administered on 09/27/18 21:32; Admin Dose 1 CAP; Start 09/25/18 at 21:00 Magnesium Hydroxide (Milk Of Mag) 30 ml DAILY PRN PO .CONSTIPATION; Start 09/25/18 at 13:00 Valacyclovir HCl (Valtrex) 500 mg BID PO Last administered on 09/27/18 21:33; Admin Dose 500 MG; Start 09/25/18 at 21:00 Zinc Sulfate (Zinc Sulfate) 220 mg DAILY PO Last administered on 09/27/18 08:59; Admin Dose 220 MG; Start 09/26/18 at 09:00 Pantoprazole (Protonix Tab) 40 mg BID@0600,1800 PO Last administered on 09/28/18 at 06:23; Admin Dose 40 MG; Start 09/25/18 at 18:00 Sevelamer Carbonate (Renvela) 800 mg WITH MEALS PO Last administered on 09/27/18 17:26; Admin Dose 800 MG; Start 09/25/18 at 17:55 Methylprednisolone Sodium Succinate (Solu-Medrol) 30 mg DAILY IV Last administered on 09/27/18 08:59; Admin Dose 30 MG; Start 09/26/18 at 09:00 Dextrose/Sodium Chloride 1,000 ml @ 20 mls/hr Q24H IV Last administered on 09/27/18 17:25; Admin Dose 20 MLS/HR; Start 09/25/18 at 17:00 Furosemide (Lasix) 40 mg DAILY@0600 IV Last administered on 09/28/18 06:22; Admin Dose 40 MG; Start 09/26/18 at 10:00 Albuterol/ Ipratropium (Duoneb) 3 ml Q4H RESP THERAPY HHN Last administered on 09/28/18 04:41; Admin Dose 3 ML; Start 09/26/18 at 13:00 Diltiazem HCl (Cardizem Iv) 5 mg Q1H PRN IV HR > 100; Start 09/26/18 at 16:00 Alprazolam (Xanax) 0.25 mg BID PO Last administered on 09/27/18 21:33; Admin Dose 0.25 MG; Start 09/27/18 at 21:00 Diltiazem HCl (Cardizem) 30 mg Q8 NGT Last administered on 09/28/18 06:23; Admin Dose 30 MG; Start 09/27/18 at 14:00 Apixaban (Eliquis) 2.5 mg BID PO Last administered on 6/30/19at 21:33; Admin Dose 2.5 MG; Start 09/27/18 at 21:00 Miscellaneous Information 1 ea NOTE XX ; Start 09/28/18 at 06:30 ALEX FLYNN Sep 28, 2018 07:43
[2018-09-28] MEDS ORDERED: POTASSIUM CHLORIDE (SR) 20 MEQ TAB PO STA (08:19)
[2018-09-28] MEDS: BALSAM PERU/CASTOR OIL 60 GM TUBE TOP SCH ×2 (08:20→21:17)
[2018-09-28] MEDS: MULTIVITAMINS 30 ML CUP NGT SCH (08:20)
[2018-09-28] MEDS: DOCUSATE SODIUM 10 MG/ML (10ML CUP) PO SCH ×2 (08:20→21:14)
[2018-09-28] MEDS: MUPIROCIN 2% 22 GM OINT TOP SCH ×2 (08:20→21:16)
[2018-09-28] MEDS: CHLORHEXIDINE GLUCONATE 15 ML UD CUP MT SCH ×2 (08:20→21:14)
[2018-09-28] MEDS: PETROLATUM 5 GM OINT TOP SCH ×2 (08:21→21:16)
[2018-09-28] MEDS: TRIAMCINOLONE ACET 0.1% 15 GM CR TOP SCH ×2 (08:22→21:16)
[2018-09-28] MEDS: SEVELAMER CARBONATE 800 MG TABLET PO SCH ×3 (08:22→17:41)
[2018-09-28] MEDS: LACTOBACILLUS RHAMNOSUS CAP PO SCH ×2 (08:22→21:14)
[2018-09-28] MEDS: ZINC SULFATE 220 MG CAP PO SCH (08:22)
[2018-09-28] MEDS: APIXABAN 5 MG TABLET PO SCH ×2 (08:22→21:15)
[2018-09-28] MEDS: valACYclovir 500 MG TAB PO SCH (08:22)
[2018-09-28] MEDS: FOLIC ACID 1 MG TAB PO SCH (08:22)
[2018-09-28] MEDS: METHYLPREDNISOLONE 40 MG INJ IV SCH (08:23)
[2018-09-28] MEDS: ASCORBIC ACID 500 MG TAB NGT SCH (08:23)
[2018-09-28] MEDS: ESCITALOPRAM 10 MG TAB PO SCH (08:23)
[2018-09-28] MEDS: ALPRAZOLAM 0.25 MG TAB PO SCH ×2 (08:23→21:28)
--- NOTE | 2018-09-28 08:55 | PN ---
DATE: 09/28/2018 SUBJECTIVE: The patient this morning was noted to have some mild respiratory distress, positive whee zing and other events noted. OBJECTIVE: VITAL SIGNS: Blood pressure is 130/69, pulse 89, respiration 18, temperature 98.4. HEENT: Head is normocephalic. NECK: Supple. HEART: Regular rate. LUNGS: Show diminished breath sounds at the base. ABDOMEN: Soft, nontender to palpation. No rebound or guarding. EXTREMITIES: Negative for clubbing, cyanosis. Trace edema. DERMATOLOGIC: No rashes. MUSCULOSKELETAL: No joint effusion. NEUROLOGIC: No change in exam. MEDICATIONS: Have been reviewed. LABORATORY DATA: Has been reviewed. IMAGING STUDIES: Have been reviewed. ASSESSMENT AND PLAN: 1. Oliguric acute kidney injury with unknown baseline creatinine. Etiology secondary to acute tubul ar necrosis hemodynamics. The patient's renal function has been fluctuating, but overall improving. Continue current treatment plans, supportive care, renally dose all medicines. 2. Volume overload. Will discontinue IV fluids. Continue diuretic therapy, monitor renal function and electrolytes closely. 3. Hypernatremia, improved. 4. Anemia. Continue to monitor hemoglobin and hematocrit levels. 5. Mineral bone disorder. Monitor calcium and phosphorus levels. 6. Respiratory failure, currently stable. Continues cannula. Continue diuretic therapy. Continue nebulizers. 7. Sepsis secondary to pneumonia. Continue current medical regimen. 8. Encephalopathy, toxic metabolic. 9. Decompensated diastolic heart failure. Continue current diuretic regimen. 10. Nutrition. Continue to advance diet. Dictated By: ANGELA ROSENTHAL/NTS Conf#: [id number] DID#: [id number] CC: SERGIO TREVINO MD;*EndCC*
[2018-09-28] MEDS: POTASSIUM CHLORIDE 20 MEQ POWDER FOR ORAL SOLN PO ONE ×2 (09:00→10:09)
[2018-09-28] MEDS ORDERED: POTASSIUM CHLORIDE 100 ML IVPB ONE (14:00)
--- NOTE | 2018-09-28 14:53 | CONS ---
Assessment/Plan Assessment/Plan Hospital Course (Demo Recall) No acute events, alert, no fevers Antimicrobials: Valtrex Indwelling's: Mcgowan catheter, PICC Physical examination: Well-developed well-nourished elderly man who is awake in no distress. Head atraumatic normocephalic sclera nonicteric vehicle mucosa dry neck is supple chest rise symmetrical breath sounds with bilateral rhonchi. Heart: S1-S2. Abdomen soft bowel sounds present. Assessment: 1. S/p acute hypoxemic respiratory failure===>extubated 2. Status post pneumonia 3. CHF 4. Bradycardia 5. Acute kidney injury 6. Mouth lesions, on empiric Valtrex , s/p short course of Zyvox 7. Staph bacteremia cw contaminant Plan: Remains stable, continue anti-aspiration precautions DW son Consultation Date/Type/Reason Admit Date/Time Aug 29, 2018 at 05:45 Initial Consult Date 08/30/18 Type of Consult id Requesting Provider: SERGIO TREVINO MD Date/Time of Note DATE: 09/28/18 TIME: 14:52 Exam/Review of Systems Exam Vitals Vital Signs Date Temp Pulse Resp B/P (MAP) Pulse Ox O2 O2 Flow FiO2 Time Delivery Rate 09/28/18 98 3.0 13:00 09/28/18 89 18 Nasal 13:00 Cannula 09/28/18 98.3 168/83 12:28 (111) Intake and Output 09/27/18 09/27/18 09/28/18 1515:00 23:00 07:00 IntakeIntake Total 120 ml 270 ml 540 ml OutputOutput Total 900 ml 700 ml BalanceBalance 120 ml -630 ml -160 ml Results Result Diagram: 09/28/18 0544 09/28/18 0543 Results 24hrs Laboratory Tests Test 09/28/18 05:43 09/28/18 05:44 Sodium Level 143 Potassium Level 3.4 L Chloride Level 105 Carbon Dioxide Level 35 H Anion Gap 3 L Blood Urea Nitrogen 36 H Creatinine 1.50 H Est Glomerular Filtrat Rate mL/min Glucose Level 99 Calcium Level 8.0 L Phosphorus Level 3.9 Magnesium Level 1.9 B-Type Natriuretic Peptide 7200 H White Blood Count 8.9 Red Blood Count 3.66 L Hemoglobin 11.3 L Hematocrit 35.2 L Mean Corpuscular Volume 96.2 Mean Corpuscular Hemoglobin 30.9 Mean Corpuscular Hemoglobin Concent 32.1 Red Cell Distribution Width 15.1 H Platelet Count 344 Mean Platelet Volume 10.0 Immature Granulocytes % 11.200 H Neutrophils % 60.8 Segmented Neutrophils % (Manual) 69 Band Neutrophils % (Manual) 2 Lymphocytes % 15.1 Lymphocytes % (Manual) 5 L Reactive Lymphocytes % (Manual) 1 H Monocytes % 11.6 H Monocytes % (Manual) 13 H Eosinophils % 0.7 Basophils % 0.6 Metamyelocytes % (manual) 2 H Myelocytes % (Manual) 8 H Nucleated Red Blood Cells % 0.0 Immature Granulocytes # 1.000 H Neutrophils # 5.4 Neutrophils # (Manual) 6.1 Band Neutrophils # 0.1 Lymphocytes (Manual) 0.4 L Lymphocytes # 1.3 Reactive Lymphocytes # 0.0 Monocytes # 1.0 H Monocytes # (Manual) 1.1 H Eosinophils # 0.1 Basophils # 0.1 Metamyelocytes # 0.1 H Myelocytes # 0.7 H Nucleated Red Blood Cells # 0.0 Platelet Estimate NORMAL Polychromasia 3+ Anisocytosis 1+ Ovalocytes 1+ Medications Medication Current Medications IV Flush (NS 3 ml) 3 ml PER PROTOCOL IV ; Start 08/29/18 at 06:00 Ondansetron HCl (Zofran Inj) 4 mg Q6H PRN IV NAUSEA/VOMITING Last administered on 08/31/18at 05:02; Admin Dose 4 MG; Start 08/29/18 at 06:00 Bisacodyl (Dulcolax Supp) 10 mg DAILY PRN [place] CONSTIPATION; Start 09/03/18 at 12:00 Hydralazine HCl (Apresoline) 10 mg Q3 PRN IV ELEVATED SYSTOLIC BP Last administered on 09/28/18at 06:22; Admin Dose 10 MG; Start 09/03/18 at 18:00 Albuterol/ Ipratropium (Duoneb) 3 ml Q2H RESP THERAPY PRN HHN SHORTNESS OF BREATH Last administered on 09/27/18at 10:41; Admin Dose 3 ML; Start 09/03/18 at 20:00 Multivitamins (Multivitamin) 30 ml DAILY NGT Last administered on 09/28/18at 08:20; Admin Dose 30 ML; Start 09/07/18 at 14:30 Ascorbic Acid (Vitamin C) 500 mg DAILY NGT Last administered on 09/28/18 08:23; Admin Dose 500 MG; Start 09/07/18 at 14:30 Petrolatum (Vaseline) APPLY TO MULTIPLE SC... BID TOP Last administered on 09/28/18 08:21; Admin Dose 1 APPLIC; Start 09/08/18 at 09:00 IV Flush (NS 10 ml) 10 ml PRN PRN IV FLUSH LINE; Start 09/09/18 at 11:30 Triamcinolone Acetonide (Kenalog 0.1% Cr) 1 applic BID TOP Last administered on 09/28/18 08:22; Admin Dose 1 APPLIC; Start 09/12/18 at 14:00 Mupirocin (Bactroban) 1 applic BID TOP Last administered on 09/28/18 08:20; Admin Dose 1 APPLIC; Start 09/20/18 at 11:30 Chlorhexidine Gluconate (Peridex) 15 ml BID MT Last administered on 09/28/18 08:20; Admin Dose 15 ML; Start 09/20/18 at 14:00 Docusate Sodium (Colace Liquid Cup) 100 mg BID PO Last administered on 09/28/18 08:20; Admin Dose 100 MG; Start 09/24/18 at 21:00 Escitalopram Oxalate (Lexapro) 20 mg DAILY PO Last administered on 09/28/18 08:23; Admin Dose 20 MG; Start 09/25/18 at 09:00 Acetaminophen (Tylenol Tab) 650 mg Q6H PRN PO .PAIN 1-3 OR TEMP; Start 09/25/18 at 13:00 Docusate Sodium (Colace Liquid Cup) 100 mg Q12H PRN PO .CONSTIPATION; Start 09/25/18 at 23:00 Folic Acid (Folic Acid) 1 mg DAILY PO Last administered on 09/28/18 08:22; Admin Dose 1 MG; Start 09/26/18 at 09:00 Lactobacillus Acidophilus/ Rhamnosus (Culturelle) 1 cap BID PO Last administered on 09/28/18 08:22; Admin Dose 1 CAP; Start 09/25/18 at 21:00 Magnesium Hydroxide (Milk Of Mag) 30 ml DAILY PRN PO .CONSTIPATION; Start 09/25/18 at 13:00 Valacyclovir HCl (Valtrex) 500 mg BID PO Last administered on 09/28/18 08:22; Admin Dose 500 MG; Start 09/25/18 at 21:00 Zinc Sulfate (Zinc Sulfate) 220 mg DAILY PO Last administered on 09/28/18 08:22; Admin Dose 220 MG; Start 09/26/18 at 09:00 Pantoprazole (Protonix Tab) 40 mg BID@0600,1800 PO Last administered on 09/28/18 06:23; Admin Dose 40 MG; Start 09/25/18 at 18:00 Sevelamer Carbonate (Renvela) 800 mg WITH MEALS PO Last administered on 09/28/18 08:22; Admin Dose 800 MG; Start 09/25/18 at 17:55 Methylprednisolone Sodium Succinate (Solu-Medrol) 30 mg DAILY IV Last administ ered on 09/28/18 08:23; Admin Dose 30 MG; Start 09/26/18 at 09:00 Furosemide (Lasix) 40 mg DAILY@0600 IV Last administered on 09/28/18 06:22; Admin Dose 40 MG; Start 09/26/18 at 10:00 Albuterol/ Ipratropium (Duoneb) 3 ml Q4H RESP THERAPY HHN Last administered on 09/28/18 13:06; Admin Dose 3 ML; Start 09/26/18 at 13:00 Diltiazem HCl (Cardizem Iv) 5 mg Q1H PRN IV HR > 100; Start 09/26/18 at 16:00 Alprazolam (Xanax) 0.25 mg BID PO Last administered on 09/28/18 08:23; Admin Dose 0.25 MG; Start 09/27/18 at 21:00 Diltiazem HCl (Cardizem) 30 mg Q8 NGT Last administered on 09/28/18 14:17; Admin Dose 30 MG; Start 09/27/18 at 14:00 Apixaban (Eliquis) 2.5 mg BID PO Last administered on 09/28/18 08:22; Admin Dose 2.5 MG; Start 09/27/18 at 21:00 Miscellaneous Information 1 ea NOTE XX ; Start 09/28/18 at 06:30 Potassium Chloride 100 ml @ 50 mls/hr ONCE ONCE IVPB Last administered on 09/28/18 14:09; Admin Dose 50 MLS/HR; Start 09/28/18 at 14:00; Stop 09/28/18 at 15:59 TAYLOR RIZZO NP Sep 28, 2018 14:53
--- NOTE | 2018-09-28 15:05 | CONS ---
Consult Date/Type/Reason Admit Date/Time Aug 29, 2018 at 05:45 Initial Consult Date 08/30/18 Type of Consult Pulmonary Requesting Provider: SERGIO TREVINO MD Date/Time of Note DATE: 09/28/18 TIME: 15:04 Subjective Patient appears comfortable no distress. Objective Vital Signs Date Temp Pulse Resp B/P (MAP) Pulse Ox O2 O2 Flow FiO2 Time Delivery Rate 09/28/18 98 3.0 13:00 09/28/18 89 18 Nasal 13:00 Cannula 09/28/18 98.3 168/83 12:28 (111) Intake and Output 09/27/18 09/27/18 09/28/18 1515:00 23:00 07:00 IntakeIntake Total 120 ml 270 ml 540 ml OutputOutput Total 900 ml 700 ml BalanceBalance 120 ml -630 ml -160 ml Exam GENERAL: Elderly gentleman no acute distress. VITAL SIGNS: per chart NECK: Supple. No JVD or lymphadenopathy. CARDIAC EXAM: S1, S2. No added sounds or murmurs. CHEST: Diminished air entry bilaterally ABDOMEN: Soft, nontender. No guarding or rebound. EXTREMITIES: No cyanosis, clubbing or edema. NEUROLOGIC: Generalized weakness. No focal deficits. Vent Setting Ventilator Support Mode: CPAP Fraction of Inspired Oxygen pe: 21 Positive End Expiratory Pressu: 5.0 Results/Medications Result Diagram: 09/28/18 0544 09/28/18 0543 Results 24 hrs Laboratory Tests Test 09/28/18 05:43 09/28/18 05:44 Sodium Level 143 Potassium Level 3.4 L Chloride Level 105 Carbon Dioxide Level 35 H Anion Gap 3 L Blood Urea Nitrogen 36 H Creatinine 1.50 H Est Glomerular Filtrat Rate mL/min Glucose Level 99 Calcium Level 8.0 L Phosphorus Level 3.9 Magnesium Level 1.9 B-Type Natriuretic Peptide 7200 H White Blood Count 8.9 Red Blood Count 3.66 L Hemoglobin 11.3 L Hematocrit 35.2 L Mean Corpuscular Volume 96.2 Mean Corpuscular Hemoglobin 30.9 Mean Corpuscular Hemoglobin Concent 32.1 Red Cell Distribution Width 15.1 H Platelet Count 344 Mean Platelet Volume 10.0 Immature Granulocytes % 11.200 H Neutrophils % 60.8 Segmented Neutrophils % (Manual) 69 Band Neutrophils % (Manual) 2 Lymphocytes % 15.1 Lymphocytes % (Manual) 5 L Reactive Lymphocytes % (Manual) 1 H Monocytes % 11.6 H Monocytes % (Manual) 13 H Eosinophils % 0.7 Basophils % 0.6 Metamyelocytes % (manual) 2 H Myelocytes % (Manual) 8 H Nucleated Red Blood Cells % 0.0 Immature Granulocytes # 1.000 H Neutrophils # 5.4 Neutrophils # (Manual) 6.1 Band Neutrophils # 0.1 Lymphocytes (Manual) 0.4 L Lymphocytes # 1.3 Reactive Lymphocytes # 0.0 Monocytes # 1.0 H Monocytes # (Manual) 1.1 H Eosinophils # 0.1 Basophils # 0.1 Metamyelocytes # 0.1 H Myelocytes # 0.7 H Nucleated Red Blood Cells # 0.0 Platelet Estimate NORMAL Polychromasia 3+ Anisocytosis 1+ Ovalocytes 1+ Medications Current Medications IV Flush (NS 3 ml) 3 ml PER PROTOCOL IV ; Start 08/29/18 at 06:00 Ondansetron HCl (Zofran Inj) 4 mg Q6H PRN IV NAUSEA/VOMITING Last administered on 08/31/18at 05:02; Admin Dose 4 MG; Start 08/29/18 at 06:00 Bisacodyl (Dulcolax Supp) 10 mg DAILY PRN [place] CONSTIPATION; Start 09/03/18 at 12:00 Hydralazine HCl (Apresoline) 10 mg Q3 PRN IV ELEVATED SYSTOLIC BP Last administered on 09/28/18at 06:22; Admin Dose 10 MG; Start 09/03/18 at 18:00 Albuterol/ Ipratropium (Duoneb) 3 ml Q2H RESP THERAPY PRN HHN SHORTNESS OF BREATH Last administered on 09/27/18at 10:41; Admin Dose 3 ML; Start 09/03/18 at 20:00 Multivitamins (Multivitamin) 30 ml DAILY NGT Last administered on 09/28/18 08:20; Admin Dose 30 ML; Start 09/07/18 at 14:30 Ascorbic Acid (Vitamin C) 500 mg DAILY NGT Last administered on 09/28/18 08:23; Admin Dose 500 MG; Start 09/07/18 at 14:30 Petrolatum (Vaseline) APPLY TO MULTIPLE SC... BID TOP Last administered on 09/28/18 08:21; Admin Dose 1 APPLIC; Start 09/08/18 at 09:00 IV Flush (NS 10 ml) 10 ml PRN PRN IV FLUSH LINE; Start 09/09/18 at 11:30 Triamcinolone Acetonide (Kenalog 0.1% Cr) 1 applic BID TOP Last administered on 09/28/18 08:22; Admin Dose 1 APPLIC; Start 09/12/18 at 14:00 Mupirocin (Bactroban) 1 applic BID TOP Last administered on 09/28/18 08:20; Admin Dose 1 APPLIC; Start 09/20/18 at 11:30 Chlorhexidine Gluconate (Peridex) 15 ml BID MT Last administered on 09/28/18 08:20; Admin Dose 15 ML; Start 09/20/18 at 14:00 Docusate Sodium (Colace Liquid Cup) 100 mg BID PO Last administered on 09/28/18 08:20; Admin Dose 100 MG; Start 09/24/18 at 21:00 Escitalopram Oxalate (Lexapro) 20 mg DAILY PO Last administered on 09/28/18 08:23; Admin Dose 20 MG; Start 09/25/18 at 09:00 Acetaminophen (Tylenol Tab) 650 mg Q6H PRN PO .PAIN 1-3 OR TEMP; Start 09/25/18 at 13:00 Docusate Sodium (Colace Liquid Cup) 100 mg Q12H PRN PO .CONSTIPATION; Start 09/25/18 at 23:00 Folic Acid (Folic Acid) 1 mg DAILY PO Last administered on 09/28/18 08:22; Admin Dose 1 MG; Start 09/26/18 at 09:00 Lactobacillus Acidophilus/ Rhamnosus (Culturelle) 1 cap BID PO Last administered on 09/28/18 08:22; Admin Dose 1 CAP; Start 09/25/18 at 21:00 Magnesium Hydroxide (Milk Of Mag) 30 ml DAILY PRN PO .CONSTIPATION; Start 09/25/18 at 13:00 Zinc Sulfate (Zinc Sulfate) 220 mg DAILY PO Last administered on 09/28/18 08:22; Admin Dose 220 MG; Start 09/26/18 at 09:00 Pantoprazole (Protonix Tab) 40 mg BID@0600,1800 PO Last administered on 09/28/18 06:23; Admin Dose 40 MG; Start 09/25/18 at 18:00 Sevelamer Carbonate (Renvela) 800 mg WITH MEALS PO Last administered on 09/28/18 08:22; Admin Dose 800 MG; Start 09/25/18 at 17:55 Methylprednisolone Sodium Succinate (Solu-Medrol) 30 mg DAILY IV Last administered on 09/28/18 08:23; Admin Dose 30 MG; Start 09/26/18 at 09:00 Furosemide (Lasix) 40 mg DAILY@0600 IV Last administered on 09/28/18 06:22; Admin Dose 40 MG; Start 09/26/18 at 10:00 Albuterol/ Ipratropium (Duoneb) 3 ml Q4H RESP THERAPY HHN Last administered on 09/28/18 13:06; Admin Dose 3 ML; Start 09/26/18 at 13:00 Diltiazem HCl (Cardizem Iv) 5 mg Q1H PRN IV HR > 100; Start 09/26/18 at 16:00 Alprazolam (Xanax) 0.25 mg BID PO Last administered on 09/28/18 08:23; Admin Dose 0.25 MG; Start 09/27/18 at 21:00 Diltiazem HCl (Cardizem) 30 mg Q8 NGT Last administered on 09/28/18at 14:17; Admin Dose 30 MG; Start 09/27/18 at 14:00 Apixaban (Eliquis) 2.5 mg BID PO Last administered on 09/28/18 08:22; Admin Dose 2.5 MG; Start 09/27/18 at 21:00 Miscellaneous Information 1 ea NOTE XX ; Start 09/28/18 at 06:30 Potassium Chloride 100 ml @ 50 mls/hr ONCE ONCE IVPB Last administered on 09/28/18at 14:09; Admin Dose 50 MLS/HR; Start 09/28/18 at 14:00; Stop 09/28/18 at 15:59 Assessment/Plan Hospital Course (Demo Recall) IMP: 1. s/p Acute hypoxemic respiratory failure likely secondary to combination of pneumonia and CHF 2. COPD with possible exacerbation currently on steroids 3. History of renal insufficiency 4. Hypernatremia 5. Encephalopathy toxic metabolic, appears to be resolving RECS: 1. Continue BD's 2. Mobilize OOB 3. Keep I<O's with lasix prn 4. Aspiration precautions 5. Diet advanced as tolerated OLIVE ANDREWS MD, [facility] Sep 28, 2018 15:05
--- NOTE | 2018-09-28 15:34 | PN ---
DATE: 09/28/2018 SUBJECTIVE: The patient remains in telemetry unit, overall slowly improving. Lower extremity edema resolved. The patient is able to eat his pureed diet more and more. No significant cough or evidenc e of aspiration. The patient remains weak. Case was discussed with ID and staff. PHYSICAL EXAMINATION: VITAL SIGNS: Temperature 98.3, pulse 99, respirations 18, blood pressure 160/83, saturation 98% on 3 liters. GENERAL: The patient is in no acute distress, frail. HEENT: Pale. Oronasal lesions, improving. CARDIOVASCULAR: S1 and S2. LUNGS: Faint rhonchi at the bases, much improved. ABDOMEN: Soft, nontender. EXTREMITIES: No clubbing, cyanosis or edema. MEDICATIONS: 1. Alprazolam 0.25 b.i.d. 2. Eliquis 2.5 b.i.d. 3. Cardizem 30 mg q.8. 4. DuoNeb q.4 p.r.n. 5. Lasix 40 IV daily. 6. Folic acid 1 mg daily. 7. Zinc sulfate 220 daily. 8. Solu-Medrol 2 mg IV daily. 9. Colace 100 q.12 p.r.n. 10. Culturelle 1 cap b.i.d. 11. Valtrex 500 b.i.d. 12. Potassium daily. 13. Renvela 800 t.i.d. 14. Tylenol p.r.n. 15. Milk of Magnesia p.r.n. 16. Lexapro 10 mg daily. 17. Colace 100 b.i.d. 18. Peridex 15 mL b.i.d. 19. Bactrim 1 b.i.d. 20. Kenalog b.i.d. 21. Vaseline b.i.d. 22. Multivitamin 30 mL daily. 23. Vitamin C 500 mg daily. 24. Hydralazine p.r.n. 25. Dulcolax p.r.n. 26. Zofran p.r.n. DIAGNOSTIC DATA: Abdominal ultrasound ordered by GI showed mildly coarse heterogeneous echotexture o f the liver suggesting steatosis. The gallbladder and biliary tree appeared unremarkable. Right ple ural effusion is visualized. ASSESSMENT AND PLAN: This is an 87-year-old [place] male with history of atrial fibrillation, hyper tension, low back pain, status post respiratory failure with prolonged intubation, now extubated. 1. Respiratory: Overall doing better with diuretic therapy, breathing treatment and O2 support, off antibiotics. Continue aspiration precaution, suctioning and close monitoring. 2. Cardiovascular: The patient with atrial fibrillation. Eliquis was not started. Heparin was dis continued. Rate controlled. Further treatment per Dr. Tracey. 3. Anemia. H and H remain stable. No need for transfusion. 4. Acute renal failure, improved. Monitor electrolytes. Replace potassium. 5. Malnutrition, on pureed diet, Ensure or Nepro shakes. 6. Generalized weakness. Physical therapy as tolerated. 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 7. Infectious disease. Procalcitonin was borderline. Off antibiotics as the patient is afebrile wi th normal white count. 8. Neurologically: He is just very weak. Needs close care and monitoring. Overall improving. 9. Depression, on Lexapro. Also, the patient was placed on Xanax twice day. With that regimen, the patient is doing much better. We will follow. PLAN: Sent to LTAC versus acute rehab. We will discuss with family and case management. Dictated By: SERGIO CERVANTES/NEHAL Conf#: [id number] DID#: [id number] CC: OLIVE ANDREWS MD;*[facility]*
--- NOTE | 2018-09-28 17:12 | CONS ---
Consult Date/Type/Reason Admit Date/Time Aug 29, 2018 at 05:45 Initial Consult Date 09/07/18 Type of Consultation: Pulm Requesting Provider: SERGIO TREVINO MD Date/Time of Note DATE: 09/28/18 TIME: 17:10 Subjective Interventional cardiology follow-up progress note Subjective: Case discussed with the staff and telemetry was reviewed. Patient has remained in AFIB and t HR is under good control mostly Patient is on tele and remains in AFIB no report of any chest pain or pressure no bleeding is reported O General: Elderly gentleman. no acute distress HEENT: NC/AT. pupils are equal. round. NECK: NO JVD. no stridor. CV: irregularly irregular . systolic murmur; no gallop or rubs. PULM: no wheezing + diffuse rhonchi. GI: SOFT, NT, ND, no rebound or guarding Extremity: trace B/L LE edema. no clubbing. neuro: awake and alert Psych: calm rectal: deferred EKG normal sinus rhythm Chest x-ray on admission showed: 1. Right basilar interstitial opacities, new from the prior examination from a few hours prior, likely reflecting atelectasis. 2. Mild prominence of the interstitial markings, may reflect mild underlying interstitial edema or chronic lung changes. 3. Mild cardiomegaly and aortic atherosclerosis. Chest x-ray done on 09/06/2018 shows: 1. Atherosclerosis of the thoracic aorta. 2. Persistent bilateral pulmonary infiltrates which could represent infection or non infection related edema or combination of the 2. 3. Endotracheal and nasogastric tubes in place. CXR 6. 1. Findings suggestive of pulmonary vascular congestion with small bilateral pleural effusions. Lung aeration is improved when compared to the prior examination. 2. Mild cardiomegaly and aortic atherosclerosis. 3. Right upper extremity PICC line with tip near the cavoatrial junction. CXR 09/24: Patchy bilateral pulmonary air space disease consistent with pulmonary edema or bilateral pneumonia is unchanged. The heart is enlarged. There is calcification in the aorta consistent with atherosclerosis. There are small bilateral pleural effusions. Echocardiogram done on 08/29/2018 which was personally reviewed shows: There is mild to mod enlargement of left atrium. Normal left ventricular systolic function. Normal left ventricular cavity size. Normal left ventricular wall thickness. Ejection fraction is visually estimated at 60-65 %. Normal appearance of the mitral valve. Mild mitral valve regurgitation. Normal appearance of the aortic valve. No aortic regurgitation. Normal appearance of the tricuspid valve. The estimated Peak RVSP is 53 mmHg. There is mild tricuspid regurgitation. The IVC is not well visualized. Objective Vitals Vital Signs Date Temp Pulse Resp B/P (MAP) Pulse Ox O2 O2 Flow FiO2 Time Delivery Rate 09/28/18 98.0 86 17 143/72 96 15:40 (95) 09/28/18 3.0 13:00 09/28/18 Nasal 13:00 Cannula Intake and Output 09/27/18 09/27/18 09/28/18 1515:00 23:00 07:00 IntakeIntake Total 120 ml 270 ml 540 ml OutputOutput Total 900 ml 700 ml BalanceBalance 120 ml -630 ml -160 ml Results/Medications Result Diagram: 09/28/18 0544 09/28/18 0543 Results 24 hrs Laboratory Tests Test 09/28/18 05:43 09/28/18 05:44 Sodium Level 143 Potassium Level 3.4 L Chloride Level 105 Carbon Dioxide Level 35 H Anion Gap 3 L Blood Urea Nitrogen 36 H Creatinine 1.50 H Est Glomerular Filtrat Rate mL/min Glucose Level 99 Calcium Level 8.0 L Phosphorus Level 3.9 Magnesium Level 1.9 B-Type Natriuretic Peptide 7200 H White Blood Count 8.9 Red Blood Count 3.66 L Hemoglobin 11.3 L Hematocrit 35.2 L Mean Corpuscular Volume 96.2 Mean Corpuscular Hemoglobin 30.9 Mean Corpuscular Hemoglobin Concent 32.1 Red Cell Distribution Width 15.1 H Platelet Count 344 Mean Platelet Volume 10.0 Immature Granulocytes % 11.200 H Neutrophils % 60.8 Segmented Neutrophils % (Manual) 69 Band Neutrophils % (Manual) 2 Lymphocytes % 15.1 Lymphocytes % (Manual) 5 L Reactive Lymphocytes % (Manual) 1 H Monocytes % 11.6 H Monocytes % (Manual) 13 H Eosinophils % 0.7 Basophils % 0.6 Metamyelocytes % (manual) 2 H Myelocytes % (Manual) 8 H Nucleated Red Blood Cells % 0.0 Immature Granulocytes # 1.000 H Neutrophils # 5.4 Neutrophils # (Manual) 6.1 Band Neutrophils # 0.1 Lymphocytes (Manual) 0.4 L Lymphocytes # 1.3 Reactive Lymphocytes # 0.0 Monocytes # 1.0 H Monocytes # (Manual) 1.1 H Eosinophils # 0.1 Basophils # 0.1 Metamyelocytes # 0.1 H Myelocytes # 0.7 H Nucleated Red Blood Cells # 0.0 Platelet Estimate NORMAL Polychromasia 3+ Anisocytosis 1+ Ovalocytes 1+ Home Meds Reported Medications Losartan Potassium* (Losartan Potassium*) 50 Mg Tablet, 50 MG PO DAILY, TAB 08/29/18 Simvastatin (Simvastatin) 20 Mg Tablet, 20 MG PO QHS for 90 Days, #90 08/29/18 Furosemide* (Furosemide*) 40 Mg Tablet, 40 MG PO DAILY for 90 Days, #90 08/29/18 Potassium Chloride (K-Tab ER) 8 Meq Tablet.er, 8 MEQ PO BID for 90 Days, #180 08/29/18 Escitalopram Oxalate* (Escitalopram Oxalate*) 10 Mg Tablet, 20 MG PO DAILY for 90 Days, #90 08/29/18 Hydrocodone Bit-Acetaminophen (Hydrocodone Bit-APAP) 5-325MG Tablet, 1 TAB PO DAILY 08/29/18 Dexlansoprazole (Dexilant) 60 Mg Tree.mp, 60 MG PO DAILY for 90 Days, #90 08/29/18 Amiodarone Hcl* (Amiodarone Hcl*) 200 Mg Tablet, 200 MG PO DAILY for 90 Days, #90 08/29/18 Alprazolam* (Alprazolam*) 0.5 Mg Tablet, 0.5 MG PO QHS for 30 Days, #30 08/29/18 Medications Current Medications IV Flush (NS 3 ml) 3 ml PER PROTOCOL IV ; Start 08/29/18 at 06:00 Ondansetron HCl (Zofran Inj) 4 mg Q6H PRN IV NAUSEA/VOMITING Last administered on 08/31/18at 05:02; Admin Dose 4 MG; Start 08/29/18 at 06:00 Bisacodyl (Dulcolax Supp) 10 mg DAILY PRN [place] CONSTIPATION; Start 09/03/18 at 12:00 Hydralazine HCl (Apresoline) 10 mg Q3 PRN IV ELEVATED SYSTOLIC BP Last administered on 09/28/18at 06:22; Admin Dose 10 MG; Start 09/03/18 at 18:00 Albuterol/ Ipratropium (Duoneb) 3 ml Q2H RESP THERAPY PRN HHN SHORTNESS OF BREATH Last administered on 09/27/18 10:41; Admin Dose 3 ML; Start 09/03/18 at 20:00 Multivitamins (Multivitamin) 30 ml DAILY NGT Last administered on 09/28/18 08:20; Admin Dose 30 ML; Start 09/07/18 at 14:30 Ascorbic Acid (Vitamin C) 500 mg DAILY NGT Last administered on 09/28/18 08:23; Admin Dose 500 MG; Start 09/07/18 at 14:30 Petrolatum (Vaseline) APPLY TO MULTIPLE SC... BID TOP Last administered on 09/28/18 08:21; Admin Dose 1 APPLIC; Start 09/08/18 at 09:00 IV Flush (NS 10 ml) 10 ml PRN PRN IV FLUSH LINE; Start 09/09/18 at 11:30 Triamcinolone Acetonide (Kenalog 0.1% Cr) 1 applic BID TOP Last administered on 09/28/18 08:22; Admin Dose 1 APPLIC; Start 09/12/18 at 14:00 Mupirocin (Bactroban) 1 applic BID TOP Last administered on 09/28/18 08:20; Admin Dose 1 APPLIC; Start 09/20/18 at 11:30 Chlorhexidine Gluconate (Peridex) 15 ml BID MT Last administered on 09/28/18 08:20; Admin Dose 15 ML; Start 09/20/18 at 14:00 Docusate Sodium (Colace Liquid Cup) 100 mg BID PO Last administered on 09/28/18 08:20; Admin Dose 100 MG; Start 09/24/18 at 21:00 Escitalopram Oxalate (Lexapro) 20 mg DAILY PO Last administered on 09/28/18 08:23; Admin Dose 20 MG; Start 09/25/18 at 09:00 Acetaminophen (Tylenol Tab) 650 mg Q6H PRN PO .PAIN 1-3 OR TEMP Last administered on 09/28/18 16:24; Admin Dose 650 MG; Start 09/25/18 at 13:00 Docusate Sodium (Colace Liquid Cup) 100 mg Q12H PRN PO .CONSTIPATION; Start 09/25/18 at 23:00 Folic Acid (Folic Acid) 1 mg DAILY PO Last administered on 09/28/18 08:22; Admin Dose 1 MG; Start 09/26/18 at 09:00 Lactobacillus Acidophilus/ Rhamnosus (Culturelle) 1 cap BID PO Last administered on 09/28/18 08:22; Admin Dose 1 CAP; Start 09/25/18 at 21:00 Magnesium Hydroxide (Milk Of Mag) 30 ml DAILY PRN PO .CONSTIPATION; Start 09/25/18 at 13:00 Zinc Sulfate (Zinc Sulfate) 220 mg DAILY PO Last administered on 09/28/18 08:22; Admin Dose 220 MG; Start 09/26/18 at 09:00 Pantoprazole (Protonix Tab) 40 mg BID@0600,1800 PO Last administered on 06:23; Admin Dose 40 MG; Start 09/25/18 at 18:00 Sevelamer Carbonate (Renvela) 800 mg WITH MEALS PO Last administered on 09/28/18 08:22; Admin Dose 800 MG; Start 09/25/18 at 17:55 Methylprednisolone Sodium Succinate (Solu-Medrol) 30 mg DAILY IV Last administered on 09/28/18 08:23; Admin Dose 30 MG; Start 09/26/18 at 09:00 Furosemide (Lasix) 40 mg DAILY@0600 IV Last administered on 09/28/18 06:22; Admin Dose 40 MG; Start 09/26/18 at 10:00 Albuterol/ Ipratropium (Duoneb) 3 ml Q4H RESP THERAPY HHN Last administered on 09/28/18 16:42; Admin Dose 3 ML; Start 09/26/18 at 13:00 Diltiazem HCl (Cardizem Iv) 5 mg Q1H PRN IV HR > 100; Start 09/26/18 at 16:00 Alprazolam (Xanax) 0.25 mg BID PO Last administered on 09/28/18 08:23; Admin Dose 0.25 MG; Start 09/27/18 at 21:00 Diltiazem HCl (Cardizem) 30 mg Q8 NGT Last administered on 09/28/18 14:17; Admin Dose 30 MG; Start 09/27/18 at 14:00 Apixaban (Eliquis) 2.5 mg BID PO Last administered on 09/28/18 08:22; Admin Dose 2.5 MG; Start 09/27/18 at 21:00 Miscellaneous Information 1 ea NOTE XX ; Start 09/28/18 at 06:30 Assessment/Plan Hospital Course (Demo Recall) 1. sick sinus with Marked sinus bradycardia: NOW IN AFIB 2. Acute hypoxemic respiratory failure status post intubation on the vent 3. Pulmonary hypertension 4. History of proximal atrial fibrillation: currently has remained in normal sinus rhythm/sinus bradycardia 5. Hypertension 6. Urinary retention status post surgery 7. Pneumonia possible COPD possible ARDS 8. Acute renal failure 9. P-AFIB 10. CHF/ fluid overload 11. Dysphagia Recommendations: pt has been taken off the amiodarone given his marked bradycardia as well as his significant pulmonary disease. Continue blood pressure control. cont cardizem Respiratory care to be continued. Antibiotic management as per internal medicine consultants We will continue to monitor on telemetry thyroid management as per IM . TSH was normal as of 09/12/18 Antibiotic as per internal medicine will cont full anticoagulation with eliquis 2.5 bid instead of ASA diuresis as per renal prn IV dig prn add aldactone. joseph alonzo Thank you for his referral. We will continue to follow along with you AMANDA DUNBAR MD [facility] AMANDA DUNBAR MD Sep 28, 2018 17:11
[2018-09-29] MEDS: ALBUTEROL/IPRATROPIUM (NEB) 3 ML AMP HHN SCH ×5 (01:45→17:00)
[2018-09-29 03:34] VITALS: BP 132/67; PULSE 76; RESP 18
[2018-09-29] MEDS: DILTIAZEM 30 MG TAB NGT SCH ×2 (06:09→14:13)
[2018-09-29] MEDS: FUROSEMIDE 40 MG INJ IV SCH (06:09)
[2018-09-29] MEDS: PANTOPRAZOLE (EC) 40 MG TAB PO SCH (06:10)
[2018-09-29 07:19] VITALS: BP 145/76; PULSE 69; RESP 18
--- NOTE | 2018-09-29 07:28 | CONS ---
Assessment/Plan Assessment/Plan Hospital Course (Demo Recall) 87 yo male 1. Anemia with dark color stool and positive stool guaiac, most probably related to GI bleeding. -s/p EGD and colonoscopy -HH stable. 2. Renal insufficiency, which is stable. 3. Respiratory failure from the pneumonia 4. COPD 5. Critical care myopathy. 6. Status post surgery for the prostate and suprapubic catheter. 7. Multiple wounds. 8. The patient's 2D echocardiogram shows a 65% ejection fraction. 9. Acute gastritis 10. Polyp removed in descending colon during colonoscopy 11. Dysphagia -Speech therapy does not recommend PO feeding. 12. Abnormal LFTS without hyperbilirubinemia -likely due to fatty liver -CBD noted to be 6.4, asymptomatic and t bili wnl. will monitor. 13. Fatty liver US of abd 09/28 IMPRESSION: 1. Mildly coarsened, heterogeneous echotexture of the liver suggesting steatosis. 2. The gallbladder and biliary tree appear unremarkable. 3. Right pleural effusion visualized. Colon polyp at 60 cm, biopsy: -- Diminutive tubular adenoma. -- Normal mucosa is also present. -- There is no evidence of malignancy. Gastric antral biopsies: -- Gastric antral type mucosa with polypoid foveolar hyperplasia. -- Oxyntic gastric mucosa with parietal cell hyperplasia with rare dilated gland. -- A Giemsa stain with an appropriate control, is negative for H. pylori organisms. -- No malignancy, dysplasia or intestinal metaplasia is identified. Plan Aspiration precautions Continue pureed diet as tolerated Monitor LFTs Pt is on eliquis, please monitor for GI bleeding Follow up with Dr Rosales as outpatient Pt examined and plan of care d/w Dr Rosales Consultation Date/Type/Reason Admit Date/Time Aug 29, 2018 at 05:45 Initial Consult Date 09/07/18 Requesting Provider: SERGIO TREVINO MD Date/Time of Note DATE: 09/29/18 TIME: 07:23 Exam/Review of Systems Exam Vitals Vital Signs Date Temp Pulse Resp B/P (MAP) Pulse Ox O2 O2 Flow FiO2 Time Delivery Rate 09/29/18 97.6 69 18 145/76 92 07:19 (99) 09/29/18 Nasal 3.0 04:41 Cannula Intake and Output 09/28/18 09/28/18 09/29/18 1515:00 23:00 07:00 IntakeIntake Total 360 ml 120 ml 200 ml OutputOutput Total 1900 ml 300 ml BalanceBalance 360 ml -1780 ml -100 ml Results Result Diagram: 09/28/18 0544 09/28/18 0543 Medications Medication Current Medications IV Flush (NS 3 ml) 3 ml PER PROTOCOL IV ; Start 08/29/18 at 06:00 Ondansetron HCl (Zofran Inj) 4 mg Q6H PRN IV NAUSEA/VOMITING Last administered on 08/31/18at 05:02; Admin Dose 4 MG; Start 08/29/18 at 06:00 Bisacodyl (Dulcolax Supp) 10 mg DAILY PRN [place] CONSTIPATION; Start 09/03/18 at 12:00 Hydralazine HCl (Apresoline) 10 mg Q3 PRN IV ELEVATED SYSTOLIC BP Last administered on 09/28/18at 06:22; Admin Dose 10 MG; Start 09/03/18 at 18:00 Albuterol/ Ipratropium (Duoneb) 3 ml Q2H RESP THERAPY PRN HHN SHORTNESS OF BREATH Last administered on 09/27/18at 10:41; Admin Dose 3 ML; Start 09/03/18 at 20:00 Multivitamins (Multivitamin) 30 ml DAILY NGT Last administered on 09/28/18 08:20; Admin Dose 30 ML; Start 09/07/18 at 14:30 Ascorbic Acid (Vitamin C) 500 mg DAILY NGT Last administered on 09/28/18 08:23; Admin Dose 500 MG; Start 09/07/18 at 14:30 Petrolatum (Vaseline) APPLY TO MULTIPLE SC... BID TOP Last administered on 09/28/18 21:16; Admin Dose 1 APPLIC; Start 09/08/18 at 09:00 IV Flush (NS 10 ml) 10 ml PRN PRN IV FLUSH LINE; Start 09/09/18 at 11:30 Triamcinolone Acetonide (Kenalog 0.1% Cr) 1 applic BID TOP Last administered on 09/28/18 21:16; Admin Dose 1 APPLIC; Start 09/12/18 at 14:00 Mupirocin (Bactroban) 1 applic BID TOP Last administered on 09/28/18 21:16; Admin Dose 1 APPLIC; Start 09/20/18 at 11:30 Chlorhexidine Gluconate (Peridex) 15 ml BID MT Last administered on 09/28/18 21:14; Admin Dose 15 ML; Start 09/20/18 at 14:00 Docusate Sodium (Colace Liquid Cup) 100 mg BID PO Last administered on 09/28/18 21:14; Admin Dose 100 MG; Start 09/24/18 at 21:00 Escitalopram Oxalate (Lexapro) 20 mg DAILY PO Last administered on 09/28/18 08:23; Admin Dose 20 MG; Start 09/25/18 at 09:00 Acetaminophen (Tylenol Tab) 650 mg Q6H PRN PO .PAIN 1-3 OR TEMP Last administered on 09/28/18 16:24; Admin Dose 650 MG; Start 09/25/18 at 13:00 Docusate Sodium (Colace Liquid Cup) 100 mg Q12H PRN PO .CONSTIPATION; Start 09/25/18 at 23:00 Folic Acid (Folic Acid) 1 mg DAILY PO Last administered on 09/28/18 08:22; Admin Dose 1 MG; Start 09/26/18 at 09:00 Lactobacillus Acidophilus/ Rhamnosus (Culturelle) 1 cap BID PO Last administered on 09/28/18 21:14; Admin Dose 1 CAP; Start 09/25/18 at 21:00 Magnesium Hydroxide (Milk Of Mag) 30 ml DAILY PRN PO .CONSTIPATION; Start 09/25/18 at 13:00 Zinc Sulfate (Zinc Sulfate) 220 mg DAILY PO Last administered on 09/28/18 08:22; Admin Dose 220 MG; Start 09/26/18 at 09:00 Pantoprazole (Protonix Tab) 40 mg BID@0600,1800 PO Last administered on 09/29/18 06:10; Admin Dose 40 MG; Start 09/25/18 at 18:00 Sevelamer Carbonate (Renvela) 800 mg WITH MEALS PO Last administered on 09/28/18 17:41; Admin Dose 800 MG; Start 09/25/18 at 17:55 Methylprednisolone Sodium Succinate (Solu-Medrol) 30 mg DAILY IV Last administered on 09/28/18 08:23; Admin Dose 30 MG; Start 09/26/18 at 09:00 Furosemide (Lasix) 40 mg DAILY@0600 IV Last administered on 09/29/18 06:09; Admin Dose 40 MG; Start 09/26/18 at 10:00 Albuterol/ Ipratropium (Duoneb) 3 ml Q4H RESP THERAPY HHN Last administered on 09/29/18at 04:41; Admin Dose 3 ML; Start 09/26/18 at 13:00 Diltiazem HCl (Cardizem Iv) 5 mg Q1H PRN IV HR > 100; Start 09/26/18 at 16:00 Alprazolam (Xanax) 0.25 mg BID PO Last administered on 09/28/18at 21:28; Admin Dose 0.25 MG; Start 09/27/18 at 21:00 Diltiazem HCl (Cardizem) 30 mg Q8 NGT Last administered on 09/29/18at 06:09; Admin Dose 30 MG; Start 09/27/18 at 14:00 Apixaban (Eliquis) 2.5 mg BID PO Last administered on 09/28/18at 21:15; Admin Dose 2.5 MG; Start 09/27/18 at 21:00 Miscellaneous Information 1 ea NOTE XX ; Start 09/28/18 at 06:30 Spironolactone (Aldactone) 25 mg DAILY PO ; Start 09/29/18 at 09:00 ALEX FLYNN Sep 29, 2018 07:28
--- NOTE | 2018-09-29 07:47 | CONS ---
Consult Date/Type/Reason Admit Date/Time Aug 29, 2018 at 05:45 Initial Consult Date 09/07/18 Type of Consultation: Pulm Requesting Provider: SERGIO TREVINO MD Date/Time of Note DATE: 09/29/18 TIME: 07:46 Subjective Interventional cardiology follow-up progress note Subjective: Case discussed with the staff and telemetry was reviewed. Patient has remained in AFIB and HR is under good control NOW Patient is on tele and remains in AFIB no report of any chest pain or pressure no bleeding is reported O General: Elderly gentleman. no acute distress HEENT: NC/AT. pupils are equal. round. NECK: NO JVD. no stridor. CV: irregularly irregular . systolic murmur; no gallop or rubs. PULM: no wheezing Mild rhonchi. GI: SOFT, NT, ND, no rebound or guarding Extremity: trace B/L LE edema. no clubbing. neuro: awake and alert Psych: calm rectal: deferred EKG normal sinus rhythm Chest x-ray on admission showed: 1. Right basilar interstitial opacities, new from the prior examination from a few hours prior, likely reflecting atelectasis. 2. Mild prominence of the interstitial markings, may reflect mild underlying interstitial edema or chronic lung changes. 3. Mild cardiomegaly and aortic atherosclerosis. Chest x-ray done on 09/06/2018 shows: 1. Atherosclerosis of the thoracic aorta. 2. Persistent bilateral pulmonary infiltrates which could represent infection or non infection related edema or combination of the 2. 3. Endotracheal and nasogastric tubes in place. CXR 6. 1. Findings suggestive of pulmonary vascular congestion with small bilateral pleural effusions. Lung aeration is improved when compared to the prior examin ation. 2. Mild cardiomegaly and aortic atherosclerosis. 3. Right upper extremity PICC line with tip near the cavoatrial junction. CXR 09/24: Patchy bilateral pulmonary air space disease consistent with pulmonary edema or bilateral pneumonia is unchanged. The heart is enlarged. There is calcification in the aorta consistent with atherosclerosis. There are small bilateral pleural effusions. Echocardiogram done on 08/29/2018 which was personally reviewed shows: There is mild to mod enlargement of left atrium. Normal left ventricular systolic function. Normal left ventricular cavity size. Normal left ventricular wall thickness. Ejection fraction is visually estimated at 60-65 %. Normal appearance of the mitral valve. Mild mitral valve regurgitation. Normal appearance of the aortic valve. No aortic regurgitation. Normal appearance of the tricuspid valve. The estimated Peak RVSP is 53 mmHg. There is mild tricuspid regurgitation. The IVC is not well visualized. Objective Vitals Vital Signs Date Temp Pulse Resp B/P (MAP) Pulse Ox O2 O2 Flow FiO2 Time Delivery Rate 09/29/18 97.6 69 18 145/76 92 07:19 (99) 09/29/18 Nasal 3.0 04:41 Cannula Intake and Output 09/28/18 09/28/18 09/29/18 1515:00 23:00 07:00 IntakeIntake Total 360 ml 120 ml 200 ml OutputOutput Total 1900 ml 300 ml BalanceBalance 360 ml -1780 ml -100 ml Results/Medications Result Diagram: 09/28/18 0544 09/28/18 0543 Home Meds Reported Medications Losartan Potassium* (Losartan Potassium*) 50 Mg Tablet, 50 MG PO DAILY, TAB 08/29/18 Simvastatin (Simvastatin) 20 Mg Tablet, 20 MG PO QHS for 90 Days, #90 08/29/18 Furosemide* (Furosemide*) 40 Mg Tablet, 40 MG PO DAILY for 90 Days, #90 08/29/18 Potassium Chloride (K-Tab ER) 8 Meq Tablet.er, 8 MEQ PO BID for 90 Days, #180 08/29/18 Escitalopram Oxalate* (Escitalopram Oxalate*) 10 Mg Tablet, 20 MG PO DAILY for 90 Days, #90 08/29/18 Hydrocodone Bit-Acetaminophen (Hydrocodone Bit-APAP) 5-325MG Tablet, 1 TAB PO DAILY 08/29/18 Dexlansoprazole (Dexilant) 60 Mg , 60 MG PO DAILY for 90 Days, #90 08/29/18 Amiodarone Hcl* (Amiodarone Hcl*) 200 Mg Tablet, 200 MG PO DAILY for 90 Days, # 90 08/29/18 Alprazolam* (Alprazolam*) 0.5 Mg Tablet, 0.5 MG PO QHS for 30 Days, #30 08/29/18 Medications Current Medications IV Flush (NS 3 ml) 3 ml PER PROTOCOL IV ; Start 08/29/18 at 06:00 Ondansetron HCl (Zofran Inj) 4 mg Q6H PRN IV NAUSEA/VOMITING Last administered on 08/31/18 05:02; Admin Dose 4 MG; Start 08/29/18 at 06:00 Bisacodyl (Dulcolax Supp) 10 mg DAILY PRN [place] CONSTIPATION; Start 09/03/18 at 12:00 Hydralazine HCl (Apresoline) 10 mg Q3 PRN IV ELEVATED SYSTOLIC BP Last administered on 09/28/18 06:22; Admin Dose 10 MG; Start 09/03/18 at 18:00 Albuterol/ Ipratropium (Duoneb) 3 ml Q2H RESP THERAPY PRN HHN SHORTNESS OF BREATH Last administered on 09/27/18 10:41; Admin Dose 3 ML; Start 09/03/18 at 20:00 Multivitamins (Multivitamin) 30 ml DAILY NGT Last administered on 09/28/18 08:20; Admin Dose 30 ML; Start 09/07/18 at 14:30 Ascorbic Acid (Vitamin C) 500 mg DAILY NGT Last administered on 09/28/18 08:23; Admin Dose 500 MG; Start 09/07/18 at 14:30 Petrolatum (Vaseline) APPLY TO MULTIPLE SC... BID TOP Last administered on 09/28/18 21:16; Admin Dose 1 APPLIC; Start 09/08/18 at 09:00 IV Flush (NS 10 ml) 10 ml PRN PRN IV FLUSH LINE; Start 09/09/18 at 11:30 Triamcinolone Acetonide (Kenalog 0.1% Cr) 1 applic BID TOP Last administered on 09/28/18 21:16; Admin Dose 1 APPLIC; Start 09/12/18 at 14:00 Mupirocin (Bactroban) 1 applic BID TOP Last administered on 09/28/18 21:16; Admin Dose 1 APPLIC; Start 09/20/18 at 11:30 Chlorhexidine Gluconate (Peridex) 15 ml BID MT Last administered on 09/28/18 21:14; Admin Dose 15 ML; Start 09/20/18 at 14:00 Docusate Sodium (Colace Liquid Cup) 100 mg BID PO Last administered on 09/28/18 21:14; Admin Dose 100 MG; Start 09/24/18 at 21:00 Escitalopram Oxalate (Lexapro) 20 mg DAILY PO Last administered on 09/28/18 08:23; Admin Dose 20 MG; Start 09/25/18 at 09:00 Acetaminophen (Tylenol Tab) 650 mg Q6H PRN PO .PAIN 1-3 OR TEMP Last administered on 09/28/18 16:24; Admin Dose 650 MG; Start 09/25/18 at 13:00 Docusate Sodium (Colace Liquid Cup) 100 mg Q12H PRN PO .CONSTIPATION; Start 09/25/18 at 23:00 Folic Acid (Folic Acid) 1 mg DAILY PO Last administered on 09/28/18 08:22; Admin Dose 1 MG; Start 09/26/18 at 09:00 Lactobacillus Acidophilus/ Rhamnosus (Culturelle) 1 cap BID PO Last administered on 09/28/18 21:14; Admin Dose 1 CAP; Start 09/25/18 at 21:00 Magnesium Hydroxide (Milk Of Mag) 30 ml DAILY PRN PO .CONSTIPATION; Start 09/25/18 at 13:00 Zinc Sulfate (Zinc Sulfate) 220 mg DAILY PO Last administered on 09/28/18 08:22; Admin Dose 220 MG; Start 09/26/18 at 09:00 Pantoprazole (Protonix Tab) 40 mg BID@0600,1800 PO Last administered on 09/29/18 06:10; Admin Dose 40 MG; Start 09/25/18 at 18:00 Sevelamer Carbonate (Renvela) 800 mg WITH MEALS PO Last administered on 09/28/18 17:41; Admin Dose 800 MG; Start 09/25/18 at 17:55 Methylprednisolone Sodium Succinate (Solu-Medrol) 30 mg DAILY IV Last administered on 09/28/18 08:23; Admin Dose 30 MG; Start 09/26/18 at 09:00 Furosemide (Lasix) 40 mg DAILY@0600 IV Last administered on 09/29/18 06:09; Admin Dose 40 MG; Start 09/26/18 at 10:00 Albuterol/ Ipratropium (Duoneb) 3 ml Q4H RESP THERAPY HHN Last administered on 09/29/18 04:41; Admin Dose 3 ML; Start 09/26/18 at 13:00 Diltiazem HCl (Cardizem Iv) 5 mg Q1H PRN IV HR > 100; Start 09/26/18 at 16:00 Alprazolam (Xanax) 0.25 mg BID PO Last administered on 09/28/18at 21:28; Admin Dose 0.25 MG; Start 09/27/18 at 21:00 Diltiazem HCl (Cardizem) 30 mg Q8 NGT Last administered on 09/29/18at 06:09; Admin Dose 30 MG; Start 09/27/18 at 14:00 Apixaban (Eliquis) 2.5 mg BID PO Last administered on 09/28/18at 21:15; Admin Dose 2.5 MG; Start 09/27/18 at 21:00 Miscellaneous Information 1 ea NOTE XX ; Start 09/28/18 at 06:30 Spironolactone (Aldactone) 25 mg DAILY PO ; Start 09/29/18 at 09:00 Assessment/Plan Hospital Course (Demo Recall) 1. sick sinus with Marked sinus bradycardia: NOW IN AFIB 2. Acute hypoxemic respiratory failure status post intubation on the vent 3. Pulmonary hypertension 4. History of proximal atrial fibrillation: currently has remained in normal sinus rhythm/sinus bradycardia 5. Hypertension 6. Urinary retention status post surgery 7. Pneumonia possible COPD possible ARDS 8. Acute renal failure 9. P-AFIB 10. CHF/ fluid overload :improved now 11. Dysphagia Recommendations: pt has been taken off the amiodarone given his marked bradycardia as well as his significant pulmonary disease. Continue blood pressure control. cont cardizem Respiratory care to be continued. Antibiotic management as per internal medicine consultants We will continue to monitor on telemetry thyroid management as per IM . TSH was normal as of 09/12/18 Antibiotic as per internal medicine will cont full anticoagulation with eliquis 2.5 bid instead of ASA diuresis as per renal prn IV dig prn aldactone. repalce lytes prn Thank you for his referral. We will continue to follow along with you AMANDA DUNBAR MD [facility] AMANDA DUNBAR MD Sep 29, 2018 07:47
--- NOTE | 2018-09-29 08:42 | PN ---
DATE: 09/29/2018 SUBJECTIVE: The patient is stable, no events overnight. OBJECTIVE: VITAL SIGNS: Blood pressure is 145/76, pulse 69, respiration 18, temperature 97.6. HEENT: Head is normocephalic. NECK: Supple. HEART: Regular rate. LUNGS: Show diminished breath sounds at the base. ABDOMEN: Soft, nontender to palpation without rebound or guarding. EXTREMITIES: Negative for clubbing, cyanosis. Trace edema. DERMATOLOGIC: No rashes. MUSCULOSKELETAL: No joint effusion. NEUROLOGIC: No change in exam. MEDICATIONS: Have been reviewed. LABORATORY DATA: Has been reviewed. IMAGING STUDIES: Have been reviewed. ASSESSMENT AND PLAN: 1. Nonoliguric acute kidney injury with previously unknown baseline creatinine. Etiology is seconda ry to hemodynamics, tubular injury. The patient's renal function has been fluctuating but overall st able and improving. Continue current treatment plans, supportive care, renally dose all meds. 2. Volume overload. Continue diuretic therapy. The patient is approaching euvolemic status. 3. Hypernatremia, improved. 4. Anemia. Monitor hemoglobin and hematocrit levels. 5. Mineral bone disorder, monitor calcium and phosphorus levels. 6. Respiratory failure, currently stable. Continue nasal cannula. 7. Sepsis secondary to pneumonia. Continue current medical management. 8. Encephalopathy, etiology is toxic metabolic. 9. Decompensated heart failure. Continue current diuretic regimen. Consider transitioning to oral diuretics. 10. Nutrition. Continue to advance diet. Dictated By: ANGELA BALLARD DO NR/NTS Conf#: [id number] DID#: [id number] CC: SERGIO TREVINO MD;*EndCC*
[2018-09-29] MEDS ORDERED: SPIRONOLACTONE 25 MG TAB PO SCH (09:00)
[2018-09-29] MEDS: MULTIVITAMINS 30 ML CUP NGT SCH (09:05)
[2018-09-29] MEDS: DOCUSATE SODIUM 10 MG/ML (10ML CUP) PO SCH (09:05)
[2018-09-29] MEDS: CHLORHEXIDINE GLUCONATE 15 ML UD CUP MT SCH (09:05)
[2018-09-29] MEDS: SEVELAMER CARBONATE 800 MG TABLET PO SCH ×2 (09:05→12:05)
[2018-09-29] MEDS: APIXABAN 5 MG TABLET PO SCH (09:05)
[2018-09-29] MEDS: LACTOBACILLUS RHAMNOSUS CAP PO SCH (09:06)
[2018-09-29] MEDS: METHYLPREDNISOLONE 40 MG INJ IV SCH (09:06)
[2018-09-29] MEDS: FOLIC ACID 1 MG TAB PO SCH (09:06)
[2018-09-29] MEDS: ZINC SULFATE 220 MG CAP PO SCH (09:06)
[2018-09-29] MEDS: ESCITALOPRAM 10 MG TAB PO SCH (09:06)
[2018-09-29] MEDS: ASCORBIC ACID 500 MG TAB NGT SCH (09:06)
[2018-09-29] MEDS: BALSAM PERU/CASTOR OIL 60 GM TUBE TOP SCH (09:16)
[2018-09-29] MEDS: PETROLATUM 5 GM OINT TOP SCH (09:16)
[2018-09-29] MEDS: MUPIROCIN 2% 22 GM OINT TOP SCH (09:16)
[2018-09-29] MEDS: TRIAMCINOLONE ACET 0.1% 15 GM CR TOP SCH (09:17)
[2018-09-29] MEDS: ALPRAZOLAM 0.25 MG TAB PO SCH (09:21)
--- NOTE | 2018-09-29 10:18 | PDOCDIS ---
Discharge Instructions CONDITION [id number] Patient Condition: [id number] Stable ACTIVITY: [id number] Activity Restrictions: [id number] Slowly Increase Activity (with physical therapy) FOLLOW UP/APPOINTMENTS Follow-up Plan [facility], see attached reconciliation, SERGIO TREVINO MD Sep 29, 2018 10:17
[2018-09-29 11:43] VITALS: BP 144/67; PULSE 78; RESP 18
--- NOTE | 2018-09-29 12:06 | DS ---
DATE OF ADMISSION: 08/29/2018 DATE OF DISCHARGE: 09/29/2018 Plan to transfer to [facility] on 09/29/2018. REASON FOR ADMISSION: Acute respiratory failure, high-grade fever and acute bronchitis. HOSPITAL COURSE: The patient is an 87-year-old [place] male with a history of hypertension, atrial fibrillation, urinary retention, previously with indwelling Mcgowan catheter and then suprapubic cathet er which were all removed as he had recent prostate procedure at [facility]. The patient also has low back pain, herniated disk with radiculopathy. In the past 2 to 3 weeks, he is battling cough and wheezin g. Symptoms worsen as now he has fevers and worsening cough and shortness of breath. He presented t o the emergency department for evaluation. Chest x-ray showed right basilar interstitial opacities n ew from the prior, reflecting either atelectasis or interstitial marking or pneumonia or edema. Temp erature was up to 105.5. The patient received 40 of Lasix and started on Rocephin and azithromycin, and admitted to the telemetry unit. The patient was placed on breathing treatment around the clock, IV steroids and antibiotics with cefepime and azithromycin. A chest x-ray also showed CHF picture. Multiple physicians was seen during this hospitalization including the senior materials planner, Dr. Ponce and Jacinto Gandhi; Dr. Andersen, the infectious disease specialist; Dr. Nunes, the barrel rib matting machine operator; Dr. Tracey, the fire extinguisher mechanic specialist. Unfortunately, despite the above treatment, the patient noted to be wi th increased tachypnea and worsening shortness of breath to the point that we decided to transfer him to the intensive care unit. In the intensive care unit, the patient was placed also on BiPAP. He a ppears very anxious and was not eating much. He was coughing when eating. Again, the patient was tr eated with diuretic therapy, antibiotics, anxiolytics and chest x-ray actually became worse to the po int that he showed multifocal pneumonia and later a concern for possible ARDS. Ultimately, the patie nt was noted to be with increased fatigue and ultimately it was decided to intubate the patient. The patient was intubated and doing his ventilatory support. He was on broad spectrum antibiotics, diur etics, breathing treatments, steroids. He failed multiple weaning trials, but ultimately we felt facundo t he is slightly improving, and the last CPAP trial, he did quite okay. Ultimately, the patient was extubated and was able to kept off the vent. Post-extubation, he failed multiple swallow evaluations , but the patient do not want an NG tube be placed after he has already an NG tube while he was venti lated for feeding. The patient was placed on gentle hydration and also diuretic therapy was given in termittently. Finally, he did pass a swallow evaluation. The patient was placed on a pureed thicken ed diet as well as anxiolytics. The patient remains very weak and still very fragile with high risk of aspiration. We decide to send him to [facility] for further pulmonary care, phys ical therapy and close monitoring. The patient also was seen by the GI specialist due to drop in hem oglobin and increased BUN and creatinine. The patient received a total of 3 units of packed red bloo d cells while he was in the ICU. Kidney function has improved overall and will continue to monitor. Labs prior to discharge shows a white count of 11.9, hemoglobin 11.4, hematocrit 36, platelet count o f 333. Chemistry: Sodium 142, potassium 3.9, chloride , bicarbonate 35, BUN 37, creatinine 1.7 3, glucose of 116. BNP improved 6030. DISCHARGE MEDICATIONS: The patient to be discharged with the following medications: 1. Tylenol 650 q. 6h p.r.n. 2. DuoNeb every 2 hours p.r.n. and every 6 hours routine. 3. Xanax 0.25 b.i.d. 4. Eliquis 2.5 b.i.d. We started him back on the blood thinners as the patient is in atrial fibrill ation. 5. Vitamin C 500 mg daily. 6. applied b.i.d. 7. Dulcolax suppository p.r.n. 8. Peridex 15 mL b.i.d. 9. Cardizem 30 mg q.8h. 10. Colace 100 b.i.d. and p.r.n. 11. Lexapro 20 mg daily. 12. Folic acid 1 mg daily. 13. Lasix was switched to 40 mg p.o. b.i.d. 14. Hydralazine 10 mg q.3h. p.r.n. for systolic greater than 170. 15. Culturelle 1 cap b.i.d. 16. Milk of magnesia 30 mL daily as needed. 17. He remains on Solu-Medrol 20 mg IV daily. We will taper it down. 18. Multivitamin 30 mL daily. 19. Bactroban ointment b.i.d. 20. Zofran 4 mg IV q.6h p.r.n. nausea, vomiting. 21. Protonix 40 mg daily. 22. Vaseline as directed. 23. Renvela 800 with meals. 24. Aldactone 25 mg daily. 25. Kenalog b.i.d. 26. Zinc sulfate 220 mg daily. FINAL DIAGNOSES: 1. CHF exacerbation, most likely diastolic dysfunction, acute on chronic exacerbation. 2. Acute respiratory failure. 3. Multifocal pneumonia. 4. ARDS picture. 5. Acute renal failure. 6. Anemia, rule out GI bleed. 7. Anxiety disorder. 8. Depression. 9. Dysphagia. 10. Hypoxemic hypercapnic respiratory failure. 11. Paroxysmal atrial fibrillation. 12. Hypertension. 13. History of urinary retention. 14. Neurogenic bladder. 15. Constipation. 16. Episodes of tachybrady while intubated, improved, now off amiodarone. 17. Facial/nasal ulcers. 18. Episodic diarrhea, had a rectal tube while in the ICU. 19. Acute Chronic kidney disease. 20. ASCVD. 21. Pulmonary hypertension. 22. Transaminitis. 23. Fatty liver disease. 24. Mild pleural effusion. Overall, the patient improved but overall remains weak. Plan to transfer to [place] for ongoing respi ratory care and physical therapy. DIET: Pureed nectar thickened liquids and 2-gram sodium. ACTIVITY: Again, with physical therapy. Case discussed with family with his nephew mostly, Jaswantalisia d also with his daughter on intermittent basis. They are aware of plan of care. The patient is disc harged today in stable condition. Dictated By: SERGIO CERVANTES/NEHAL Conf#: [id number] DID#: [id number]
--- NOTE | 2018-09-29 12:06 | CONS ---
Assessment/Plan Assessment/Plan Hospital Course (Demo Recall) No acute events over night, looks comfortable Indwelling's: PICC Physical examination: Well-developed well-nourished elderly man who is awake in no distress. Head atraumatic normocephalic sclera nonicteric vehicle mucosa dry neck is supple chest rise symmetrical breath sounds with bilateral rhonchi. Heart: S1-S2. Abdomen soft bowel sounds present. Assessment: 1. S/p acute hypoxemic respiratory failure===>extubated 2. Status post pneumonia 3. CHF 4. Bradycardia 5. Acute kidney injury 6. Mouth lesions s/p short course of Zyvox, s/p Valtrex 7. Staph bacteremia cw contaminant Plan: Remains stable, continue anti-aspiration precautions Consultation Date/Type/Reason Admit Date/Time Aug 29, 2018 at 05:45 Initial Consult Date 08/30/18 Type of Consult id Requesting Provider: SERGIO TREVINO MD Date/Time of Note DATE: 09/29/18 TIME: 12:05 Exam/Review of Systems Exam Vitals Vital Signs Date Temp Pulse Resp B/P (MAP) Pulse Ox O2 O2 Flow FiO2 Time Delivery Rate 09/29/18 98.9 78 18 144/67 97 11:43 (92) 09/29/18 Nasal 3.0 09:53 Cannula Intake and Output 09/28/18 09/28/18 09/29/18 1515:00 23:00 07:00 IntakeIntake Total 360 ml 120 ml 200 ml OutputOutput Total 1900 ml 300 ml BalanceBalance 360 ml -1780 ml -100 ml Results Result Diagram: 09/29/18 0707 09/29/18 0707 Results 24hrs Laboratory Tests Test 09/29/18 07:07 White Blood Count 11.9 #H Red Blood Count 3.69 L Hemoglobin 11.4 L Hematocrit 35.8 L Mean Corpuscular Volume 97.0 Mean Corpuscular Hemoglobin 30.9 Mean Corpuscular Hemoglobin Concent 31.8 L Red Cell Distribution Width 15.1 H Platelet Count 333 Mean Platelet Volume 10.3 Immature Granulocytes % 6.800 H Neutrophils % Segmented Neutrophils % (Manual) 76 Band Neutrophils % (Manual) 4 Lymphocytes % Lymphocytes % (Manual) 2 L Monocytes % Monocytes % (Manual) 10 Eosinophils % Basophils % Metamyelocytes % (manual) 1 H Myelocytes % (Manual) 5 H Promyelocytes % (Manual) 2 H Nucleated Red Blood Cells % 0.0 Immature Granulocytes # 0.810 H Neutrophils # Neutrophils # (Manual) 9.1 H Band Neutrophils # 0.4 Lymphocytes (Manual) 0.2 L Lymphocytes # Monocytes # Monocytes # (Manual) 1.1 H Eosinophils # Basophils # Metamyelocytes # 0.1 H Myelocytes # 0.5 H Promyelocytes # 0.2 H Nucleated Red Blood Cells # Platelet Estimate NORMAL Poikilocytosis 1+ Anisocytosis 1+ Sodium Level 142 Potassium Level 3.9 Chloride Level 102 Carbon Dioxide Level 35 H Anion Gap 5 Blood Urea Nitrogen 37 H Creatinine 1.76 H Est Glomerular Filtrat Rate mL/min Glucose Level 116 Calcium Level 8.0 L Phosphorus Level 4.0 Magnesium Level 2.0 B-Type Natriuretic Peptide 6030 H Medications Medication Current Medications IV Flush (NS 3 ml) 3 ml PER PROTOCOL IV ; Start 08/29/18 at 06:00 Ondansetron HCl (Zofran Inj) 4 mg Q6H PRN IV NAUSEA/VOMITING Last administered on 08/31/18at 05:02; Admin Dose 4 MG; Start 08/29/18 at 06:00 Bisacodyl (Dulcolax Supp) 10 mg DAILY PRN [place] CONSTIPATION; Start 09/03/18 at 12:00 Hydralazine HCl (Apresoline) 10 mg Q3 PRN IV ELEVATED SYSTOLIC BP Last administered on 09/28/18at 06:22; Admin Dose 10 MG; Start 09/03/18 at 18:00 Albuterol/ Ipratropium (Duoneb) 3 ml Q2H RESP THERAPY PRN HHN SHORTNESS OF BREATH Last administered on 09/27/18at 10:41; Admin Dose 3 ML; Start 09/03/18 at 20:00 Multivitamins (Multivitamin) 30 ml DAILY NGT Last administered on 09/29/18 09:05; Admin Dose 30 ML; Start 09/07/18 at 14:30 Ascorbic Acid (Vitamin C) 500 mg DAILY NGT Last administered on 09/29/18 09:06; Admin Dose 500 MG; Start 09/07/18 at 14:30 Petrolatum (Vaseline) APPLY TO MULTIPLE SC... BID TOP Last administered on 09/29/18at 09:16; Admin Dose 1 APPLIC; Start 09/08/18 at 09:00 IV Flush (NS 10 ml) 10 ml PRN PRN IV FLUSH LINE; Start 09/09/18 at 11:30 Triamcinolone Acetonide (Kenalog 0.1% Cr) 1 applic BID TOP Last administered on 09/29/18 09:17; Admin Dose 1 APPLIC; Start 09/12/18 at 14:00 Mupirocin (Bactroban) 1 applic BID TOP Last administered on 09/29/18 09:16; Admin Dose 1 APPLIC; Start 09/20/18 at 11:30 Chlorhexidine Gluconate (Peridex) 15 ml BID MT Last administered on 09/29/18 09:05; Admin Dose 15 ML; Start 09/20/18 at 14:00 Docusate Sodium (Colace Liquid Cup) 100 mg BID PO Last administered on 09/29/18 09:05; Admin Dose 100 MG; Start 09/24/18 at 21:00 Escitalopram Oxalate (Lexapro) 20 mg DAILY PO Last administered on 09/29/18 09:06; Admin Dose 20 MG; Start 09/25/18 at 09:00 Acetaminophen (Tylenol Tab) 650 mg Q6H PRN PO .PAIN 1-3 OR TEMP Last administered on 09/28/18 16:24; Admin Dose 650 MG; Start 09/25/18 at 13:00 Docusate Sodium (Colace Liquid Cup) 100 mg Q12H PRN PO .CONSTIPATION; Start 09/25/18 at 23:00 Folic Acid (Folic Acid) 1 mg DAILY PO Last administered on 09/29/18 09:06; Admin Dose 1 MG; Start 09/26/18 at 09:00 Lactobacillus Acidophilus/ Rhamnosus (Culturelle) 1 cap BID PO Last administered on 09/29/18 09:06; Admin Dose 1 CAP; Start 09/25/18 at 21:00 Magnesium Hydroxide (Milk Of Mag) 30 ml DAILY PRN PO .CONSTIPATION; Start 09/25/18 at 13:00 Zinc Sulfate (Zinc Sulfate) 220 mg DAILY PO Last administered on 09/29/18 09:06; Admin Dose 220 MG; Start 09/26/18 at 09:00 Pantoprazole (Protonix Tab) 40 mg BID@0600,1800 PO Last administered on 09/29/18 06:10; Admin Dose 40 MG; Start 09/25/18 at 18:00 Sevelamer Carbonate (Renvela) 800 mg WITH MEALS PO Last administered on 09/29/18 12:05; Admin Dose 800 MG; Start 09/25/18 at 17:55 Methylprednisolone Sodium Succinate (Solu-Medrol) 30 mg DAILY IV Last administered on 09/29/18 09:06; Admin Dose 30 MG; Start 09/26/18 at 09:00 Furosemide (Lasix) 40 mg DAILY@0600 IV Last administered on 09/29/18 06:09; Admin Dose 40 MG; Start 09/26/18 at 10:00 Albuterol/ Ipratropium (Duoneb) 3 ml Q4H RESP THERAPY HHN Last administered on 09/29/18 08:01; Admin Dose 3 ML; Start 09/26/18 at 13:00 Diltiazem HCl (Cardizem Iv) 5 mg Q1H PRN IV HR > 100; Start 09/26/18 at 16:00 Alprazolam (Xanax) 0.25 mg BID PO Last administered on 09/29/18 09:21; Admin Dose 0.25 MG; Start 09/27/18 at 21:00 Diltiazem HCl (Cardizem) 30 mg Q8 NGT Last administered on 09/29/18 06:09; Admin Dose 30 MG; Start 09/27/18 at 14:00 Apixaban (Eliquis) 2.5 mg BID PO Last administered on 09/29/18 09:05; Admin Dose 2.5 MG; Start 09/27/18 at 21:00 Miscellaneous Information 1 ea NOTE XX ; Start 09/28/18 at 06:30 Spironolactone (Aldactone) 25 mg DAILY PO Last administered on 09/29/18 09:06; Admin Dose 25 MG; Start 09/29/18 at 09:00 TAYLOR RIZZO NP Sep 29, 2018 12:06
[2018-09-29] MEDS ORDERED: ONDANSETRON 4 MG INJ IV PRN (15:06)
== END 2018-09-29 15:06 | disposition short-term general hospital (02) | DRG 870 ==
LOC: E/R 04:57 → 6WM 05:45 → CANRESERV 05:54 → 6WM 10:26 → ICU 08-31 14:26 → UNDODISIN 09-09 20:58 → 6WM 09-21 11:38 → TEL 09-24 05:45 → BAR 09-29 15:06 → TEL 09-29 15:06
PROVIDERS: ADMIT Internal Medicine; ATTEND Internal Medicine
PROC: 5A09557 Assistance with Respiratory Ventilation, Greater than 96 Consecutive Hours, Continuous Positive Airway Pressure (ICD-10-PCS; 2018-08-31)
PROC: 5A1955Z Respiratory Ventilation, Greater than 96 Consecutive Hours (ICD-10-PCS; principal; 2018-09-06)
PROC: 0BH17EZ Insertion of Endotracheal Airway into Trachea, Via Natural or Artificial Opening (ICD-10-PCS; 2018-09-06)
PROC: 02HV33Z Insertion of Infusion Device into Superior Vena Cava, Percutaneous Approach (ICD-10-PCS; 2018-09-09)
PROC: 30233N1 Transfusion of Nonautologous Red Blood Cells into Peripheral Vein, Percutaneous Approach (ICD-10-PCS; 2018-09-15)
PROC: 0DB68ZX Excision of Stomach, Via Natural or Artificial Opening Endoscopic, Diagnostic (ICD-10-PCS; 2018-09-17)
PROC: 0DBM8ZX Excision of Descending Colon, Via Natural or Artificial Opening Endoscopic, Diagnostic (ICD-10-PCS; 2018-09-18)
DX: A41.9 Sepsis, unspecified organism (principal); J96.01 Acute respiratory failure with hypoxia; J18.9 Pneumonia, unspecified organism; G92 Toxic encephalopathy; J96.92 Respiratory failure, unspecified with hypercapnia; I50.33 Acute on chronic diastolic (congestive) heart failure; J44.0 Chronic obstructive pulmonary disease with (acute) lower respiratory infection; J44.1 Chronic obstructive pulmonary disease with (acute) exacerbation; N39.0 Urinary tract infection, site not specified; N17.9 Acute kidney failure, unspecified; I13.0 Hypertensive heart and chronic kidney disease with heart failure and stage 1 through stage 4 chronic kidney disease, or unspecified chronic kidney disease; E87.2 Acidosis; E87.0 Hyperosmolality and hypernatremia; G72.81 Critical illness myopathy; E46 Unspecified protein-calorie malnutrition; K92.1 Melena; J20.9 Acute bronchitis, unspecified; F32.9 Major depressive disorder, single episode, unspecified; I48.91 Unspecified atrial fibrillation; R33.9 Retention of urine, unspecified; Z96.0 Presence of urogenital implants; N18.9 Chronic kidney disease, unspecified; R65.20 Severe sepsis without septic shock; D64.9 Anemia, unspecified; E83.9 Disorder of mineral metabolism, unspecified; N40.0 Benign prostatic hyperplasia without lower urinary tract symptoms; D69.6 Thrombocytopenia, unspecified; Y95 Nosocomial condition; R53.83 Other fatigue; G62.9 Polyneuropathy, unspecified; J44.9 Chronic obstructive pulmonary disease, unspecified; R00.1 Bradycardia, unspecified; R19.7 Diarrhea, unspecified; I27.20 Pulmonary hypertension, unspecified; K13.70 Unspecified lesions of oral mucosa; K63.5 Polyp of colon; D12.4 Benign neoplasm of descending colon; K29.00 Acute gastritis without bleeding; M51.36 Other intervertebral disc degeneration, lumbar region
CPT/HCPCS: 36415; 36430; 36569; 36600; 71045; 76705; 76775; 76937; 80048; 80053; 80202; 81001; 81003; 82043; 82270; 82607; 82746; 82803; 83036; 83540; 83605; 83735; 83880; 84100; 84145; 84153; 84154; 84155; 84300; 84439; 84443; 84484; 85025; 85045; 85610; 86850; 86900; 86901; 86920; 87070; 87075; 87077; 87081; 87086; 87400; 88305; 88312; 89220; 92526; 92610; 93005; 93306; 94002; 94003; 94640; 94660; 94664; 94770; 96374; 97110; 97163; 97530; C1769; J0360; J0456; J0692; J1450; J1644; J1940; J2060; J2185; J2405; J2765; J2920; J2930; J3010; J3370; J3480; J7030; J7040; J7042; J7050; J7070; P9016

== ENCOUNTER 2018-10-20 17:13 | Inpatient (IN) | payer MEDICARE, OTHER ==
[2018-10-20] VITALS (12 sets, daily range): BP systolic 130–152; BP diastolic 69–83; PULSE 75–97; RESP 18–29
[~2018-10-20] VITALS: Ht 165.1 cm; Wt 88.3 kg
[~2018-10-20 17:13] MED LIST: ALPR0.5T6 PO; AMIO200T4 PO; DEXL60CA2 PO; ESCI10TA48 PO; ETOMIDATE 20 MG INJ ONE; FURO40TA4 PO; HYDR-3601 PO; LOSA50TA14 PO; POTA8TAB46 PO; SIMV20TA20 PO
[2018-10-20] MEDS ORDERED: *CONTINUE SAME TPN IV ONE (18:00)
[2018-10-20] MEDS ORDERED: ACETAMINOPHEN 325 MG SUPP PR PRN (18:30)
[2018-10-20] MEDS ORDERED: DILTIAZEM 25 MG INJ IV PRN (18:30)
[2018-10-20] MEDS ORDERED: HYDROCODONE/APAP (5/325) TAB PO PRN (18:30)
[2018-10-20] MEDS: TPN 1,000 ML IV SCH (19:44)
[2018-10-20] MEDS ORDERED: LEVOFLOXACIN 250MG/D5W (PMX) 50 ML IVPB SCH (20:00)
[2018-10-20] MEDS: ALPRAZOLAM 0.25 MG TAB PO SCH (21:00)
[2018-10-20] MEDS ORDERED: METHYLPREDNISOLONE 125 MG INJ IV SCH (21:00)
[2018-10-20] MEDS ORDERED: APIXABAN 5 MG TABLET PO SCH (21:00)
[2018-10-20] MEDS: DILTIAZEM 30 MG TAB PO SCH (21:06)
[2018-10-20] MEDS: MUPIROCIN 2% 22 GM OINT TOP SCH (21:06)
[2018-10-20] MEDS ORDERED: DEXTROSE 50% 50 ML SYRINGE IV PRN ×2 (22:00)
[2018-10-20] MEDS: ACCU-CHEK XX SCH (22:00)
[2018-10-20] MEDS ORDERED: LORAZEPAM 2 MG INJ IV PRN (22:00)
[2018-10-20] MEDS ORDERED: PANTOPRAZOLE 40 MG INJ IV SCH (22:00)
[2018-10-20] MEDS: FLUCONAZOLE 100 MG/50 ML (PMX) 50 ML IVPB SCH (22:33)
[2018-10-20] MEDS: HEPARIN 5,000 UNIT/1 ML VIAL SC SCH (22:39)
[2018-10-20] MEDS: DOXYCYCLINE 100 MG in SOD CHLORIDE 0.9% 250 ML IVPB SCH (23:41)
[2018-10-21] VITALS (35 sets, daily range): BP systolic 113–149; BP diastolic 55–113; PULSE 71–94; RESP 16–28
[2018-10-21] MEDS: INSULIN ASPART [NOVOLOG] 3 ML PEN SC SCH ×6 (00:31→21:44)
[2018-10-21] MEDS: ACCU-CHEK XX SCH ×6 (00:31→21:38)
[2018-10-21] MEDS: ALBUTEROL/IPRATROPIUM (NEB) 3 ML AMP HHN PRN ×2 (02:54→08:38)
[2018-10-21] MEDS: DILTIAZEM 30 MG TAB PO SCH ×3 (05:14→21:35)
[2018-10-21] MEDS: PANTOPRAZOLE 40 MG INJ IV SCH (05:19)
[2018-10-21] MEDS: METHYLPREDNISOLONE 125 MG INJ IV SCH ×2 (09:15→21:37)
[2018-10-21] MEDS: HEPARIN 5,000 UNIT/1 ML VIAL SC SCH ×2 (09:17→21:48)
[2018-10-21] MEDS: DOXYCYCLINE 100 MG in SOD CHLORIDE 0.9% 250 ML IVPB SCH ×2 (09:25→21:36)
[2018-10-21] MEDS: BALSAM PERU/CASTOR OIL 60 GM TUBE TOP SCH (09:28)
[2018-10-21] MEDS ORDERED: PROPOFOL 100 ML ONE (09:56)
[2018-10-21] MEDS: MUPIROCIN 2% 22 GM OINT TOP SCH ×2 (10:00→21:37)
[2018-10-21] MEDS: PROPOFOL 100 ML IV SCH (10:44)
[2018-10-21] MEDS: TPN 1,000 ML IV SCH (11:10)
[2018-10-21] MEDS ORDERED: DIGOXIN 500 MCG INJ IV SCH (13:00)
[2018-10-21] MEDS: ASCORBIC ACID 250 MG TAB PO SCH (13:56)
[2018-10-21] MEDS: ESCITALOPRAM 10 MG TAB PO SCH (13:56)
[2018-10-21] MEDS: FOLIC ACID 1 MG TAB PO SCH (13:56)
[2018-10-21] MEDS: MEROPENEM 1 GM/50ML(PMX) 50 ML IVPB SCH ×2 (14:20→23:40)
[2018-10-21] MEDS: ALPRAZOLAM 0.25 MG TAB PO SCH ×2 (14:20→21:00)
[2018-10-21] MEDS ORDERED: DEXTROSE 5%-0.45% NACL 1,000 ML IV SCH ×2 (20:00→23:59)
[2018-10-21] MEDS: FLUCONAZOLE 100 MG/50 ML (PMX) 50 ML IVPB SCH (21:36)
[2018-10-22] VITALS (37 sets, daily range): BP systolic 98–131; BP diastolic 48–108; PULSE 51–72; RESP 17–29
[2018-10-22] MEDS: PROPOFOL 100 ML IV SCH ×2 (01:14→11:16)
[2018-10-22] MEDS: INSULIN ASPART [NOVOLOG] 3 ML PEN SC SCH ×6 (01:22→20:20)
[2018-10-22] MEDS: ACCU-CHEK XX SCH ×6 (02:00→22:00)
[2018-10-22] MEDS: PANTOPRAZOLE 40 MG INJ IV SCH ×2 (05:43→08:48)
[2018-10-22] MEDS: DILTIAZEM 30 MG TAB PO SCH ×3 (05:44→22:00)
[2018-10-22] MEDS ORDERED: DEXTROSE 5% 1,000 ML IV SCH (08:30)
[2018-10-22] MEDS: ASCORBIC ACID 250 MG TAB PO SCH (08:47)
[2018-10-22] MEDS: ESCITALOPRAM 10 MG TAB PO SCH (08:47)
[2018-10-22] MEDS: FOLIC ACID 1 MG TAB PO SCH (08:47)
[2018-10-22] MEDS: BALSAM PERU/CASTOR OIL 60 GM TUBE TOP SCH (08:48)
[2018-10-22] MEDS: HEPARIN 5,000 UNIT/1 ML VIAL SC SCH ×2 (08:49→20:20)
[2018-10-22] MEDS: MEROPENEM 1 GM/50ML(PMX) 50 ML IVPB SCH ×2 (09:07→20:12)
[2018-10-22] MEDS: DOXYCYCLINE 100 MG in SOD CHLORIDE 0.9% 250 ML IVPB SCH ×2 (09:10→20:25)
[2018-10-22] MEDS: METHYLPREDNISOLONE 125 MG INJ IV SCH (09:10)
[2018-10-22] MEDS: MUPIROCIN 2% 22 GM OINT TOP SCH ×2 (09:11→20:17)
[2018-10-22] MEDS: ALPRAZOLAM 0.25 MG TAB PO SCH ×2 (09:27→20:24)
[2018-10-22] MEDS ORDERED: FENTAnyl 50 MCG/ML VIAL ONE ×3 (11:37)
[2018-10-22] MEDS ORDERED: MIDAZOLAM 1 MG/ML 2 ML INJ ONE ×2 (11:37)
[2018-10-22] MEDS ORDERED: ATROPINE 1 MG/10 ML SYRINGE ONE (11:50)
[2018-10-22] MEDS ORDERED: CEFAZOLIN 1 GM/50 ML (PMX) 50 ML IVPB STA (12:00)
[2018-10-22] MEDS: METHYLPREDNISOLONE 40 MG INJ IV SCH (20:12)
[2018-10-22] MEDS: FLUCONAZOLE 100 MG/50 ML (PMX) 50 ML IVPB SCH (20:25)
[2018-10-23] VITALS (39 sets, daily range): BP systolic 106–153; BP diastolic 54–78; PULSE 41–86; RESP 20–29
[2018-10-23] MEDS: INSULIN ASPART [NOVOLOG] 3 ML PEN SC SCH ×6 (00:28→22:32)
[2018-10-23] MEDS: ACCU-CHEK XX SCH ×6 (02:00→22:40)
[2018-10-23] MEDS: PROPOFOL 100 ML IV SCH ×3 (03:02→22:30)
[2018-10-23] MEDS: DILTIAZEM 30 MG TAB PO SCH ×3 (05:06→21:00)
[2018-10-23] MEDS: ASCORBIC ACID 250 MG TAB PO SCH (09:48)
[2018-10-23] MEDS: FOLIC ACID 1 MG TAB PO SCH (09:48)
[2018-10-23] MEDS: ESCITALOPRAM 10 MG TAB PO SCH (09:48)
[2018-10-23] MEDS: HEPARIN 5,000 UNIT/1 ML VIAL SC SCH (09:51)
[2018-10-23] MEDS: MUPIROCIN 2% 22 GM OINT TOP SCH ×2 (09:52→22:33)
[2018-10-23] MEDS: BALSAM PERU/CASTOR OIL 60 GM TUBE TOP SCH ×2 (09:52→22:33)
[2018-10-23] MEDS: METHYLPREDNISOLONE 40 MG INJ IV SCH ×2 (10:08→22:34)
[2018-10-23] MEDS: ALPRAZOLAM 0.25 MG TAB PO SCH ×2 (10:09→22:33)
[2018-10-23] MEDS: MEROPENEM 1 GM/50ML(PMX) 50 ML IVPB SCH ×2 (10:09→22:36)
[2018-10-23] MEDS: PANTOPRAZOLE 40 MG INJ IV SCH (10:25)
[2018-10-23] MEDS: DOXYCYCLINE 100 MG in SOD CHLORIDE 0.9% 250 ML IVPB SCH (10:36)
[2018-10-23] MEDS ORDERED: FUROSEMIDE 40 MG INJ IV ONE (12:30)
[2018-10-23] MEDS: DEXTROSE 5% 1,000 ML IV SCH (15:48)
[2018-10-23] MEDS: INSULIN GLARGINE [LANTus] (100 UNITS/ML) SYG SC SCH (18:14)
[2018-10-23] MEDS: APIXABAN 5 MG TABLET PO SCH (22:33)
[2018-10-23] MEDS: FLUCONAZOLE 100 MG/50 ML (PMX) 50 ML IVPB SCH (23:04)
[2018-10-24] VITALS (35 sets, daily range): BP systolic 125–150; BP diastolic 56–84; PULSE 63–78; RESP 15–26
[2018-10-24] MEDS: DEXTROSE 5% 1,000 ML IV SCH (00:31)
[2018-10-24] MEDS: INSULIN ASPART [NOVOLOG] 3 ML PEN SC SCH ×6 (00:40→21:24)
[2018-10-24] MEDS: ACCU-CHEK XX SCH ×6 (02:00→21:17)
[2018-10-24] MEDS: LANSOPRAZOLE 30 MG CAP GTB SCH (05:38)
[2018-10-24] MEDS: PROPOFOL 100 ML IV SCH ×2 (05:39→17:22)
[2018-10-24] MEDS ORDERED: FUROSEMIDE 40 MG INJ IV ONE (06:00)
[2018-10-24] MEDS: MEROPENEM 1 GM/50ML(PMX) 50 ML IVPB SCH ×2 (08:25→21:17)
[2018-10-24] MEDS: METHYLPREDNISOLONE 40 MG INJ IV SCH ×2 (08:25→21:17)
[2018-10-24] MEDS: ESCITALOPRAM 10 MG TAB PO SCH (08:25)
[2018-10-24] MEDS: ASCORBIC ACID 250 MG TAB PO SCH (08:26)
[2018-10-24] MEDS: FOLIC ACID 1 MG TAB PO SCH (08:26)
[2018-10-24] MEDS: DILTIAZEM 30 MG TAB PO SCH ×2 (08:26→21:17)
[2018-10-24] MEDS: APIXABAN 5 MG TABLET PO SCH ×2 (08:26→21:17)
[2018-10-24] MEDS: ALPRAZOLAM 0.25 MG TAB PO SCH ×2 (08:47→21:17)
[2018-10-24] MEDS: MUPIROCIN 2% 22 GM OINT TOP SCH ×2 (10:02→21:17)
[2018-10-24] MEDS: INSULIN GLARGINE [LANTus] (100 UNITS/ML) SYG SC SCH (10:46)
[2018-10-24] MEDS ORDERED: FUROSEMIDE 20 MG INJ IV ONE (13:00)
[2018-10-24] MEDS: FLUCONAZOLE 100 MG/50 ML (PMX) 50 ML IVPB SCH (21:17)
[2018-10-25] VITALS (40 sets, daily range): BP systolic 112–153; BP diastolic 54–77; PULSE 39–70; RESP 17–30
[2018-10-25] MEDS: DEXTROSE 5% 1,000 ML IV SCH
[2018-10-25] MEDS: INSULIN ASPART [NOVOLOG] 3 ML PEN SC SCH ×6 (01:41→21:15)
[2018-10-25] MEDS: ACCU-CHEK XX SCH ×6 (01:41→21:15)
[2018-10-25] MEDS: LANSOPRAZOLE 30 MG CAP GTB SCH (05:04)
[2018-10-25] MEDS: PROPOFOL 100 ML IV SCH ×2 (05:41→23:02)
[2018-10-25] MEDS: METHYLPREDNISOLONE 40 MG INJ IV SCH ×2 (09:41→21:07)
[2018-10-25] MEDS: MEROPENEM 1 GM/50ML(PMX) 50 ML IVPB SCH ×2 (09:42→21:07)
[2018-10-25] MEDS: ESCITALOPRAM 10 MG TAB PO SCH (09:43)
[2018-10-25] MEDS: ASCORBIC ACID 250 MG TAB PO SCH (09:43)
[2018-10-25] MEDS: APIXABAN 5 MG TABLET PO SCH ×2 (09:43→21:08)
[2018-10-25] MEDS: FOLIC ACID 1 MG TAB PO SCH (09:43)
[2018-10-25] MEDS: DILTIAZEM 30 MG TAB PO SCH ×2 (09:44→21:00)
[2018-10-25] MEDS: MUPIROCIN 2% 22 GM OINT TOP SCH ×2 (09:44→21:18)
[2018-10-25] MEDS: BALSAM PERU/CASTOR OIL 60 GM TUBE TOP SCH (09:44)
[2018-10-25] MEDS: ALPRAZOLAM 0.25 MG TAB PO SCH ×2 (10:14→21:18)
[2018-10-25] MEDS: INSULIN GLARGINE [LANTus] (100 UNITS/ML) SYG SC SCH (10:22)
[2018-10-25] MEDS: FLUCONAZOLE 100 MG/50 ML (PMX) 50 ML IVPB SCH (21:07)
[2018-10-26] VITALS (38 sets, daily range): BP systolic 106–145; BP diastolic 52–101; PULSE 42–65; RESP 16–27
[2018-10-26] MEDS: ACCU-CHEK XX SCH ×6 (02:00→22:21)
[2018-10-26] MEDS: INSULIN ASPART [NOVOLOG] 3 ML PEN SC SCH ×6 (03:11→21:49)
[2018-10-26] MEDS: LANSOPRAZOLE 30 MG CAP GTB SCH (05:19)
[2018-10-26] MEDS: DEXTROSE 5% 1,000 ML IV SCH (05:52)
[2018-10-26] MEDS ORDERED: FUROSEMIDE 40 MG INJ IV ONE (07:00)
[2018-10-26] MEDS: METHYLPREDNISOLONE 40 MG INJ IV SCH (08:32)
[2018-10-26] MEDS: MEROPENEM 1 GM/50ML(PMX) 50 ML IVPB SCH ×2 (08:33→21:08)
[2018-10-26] MEDS: POLYETHYLENE GLYCOL 17 GM PACKET GTB SCH (08:33)
[2018-10-26] MEDS: ASCORBIC ACID 250 MG TAB PO SCH (08:34)
[2018-10-26] MEDS: ALPRAZOLAM 0.25 MG TAB PO SCH ×2 (08:34→21:09)
[2018-10-26] MEDS: APIXABAN 5 MG TABLET PO SCH ×2 (08:34→21:09)
[2018-10-26] MEDS: FOLIC ACID 1 MG TAB PO SCH (08:34)
[2018-10-26] MEDS: BALSAM PERU/CASTOR OIL 60 GM TUBE TOP SCH (08:35)
[2018-10-26] MEDS: MUPIROCIN 2% 22 GM OINT TOP SCH ×2 (08:36→21:10)
[2018-10-26] MEDS: DILTIAZEM 30 MG TAB PO SCH ×2 (08:46→21:00)
[2018-10-26] MEDS: INSULIN GLARGINE [LANTus] (100 UNITS/ML) SYG SC SCH (09:16)
[2018-10-26] MEDS: ESCITALOPRAM 10 MG TAB PO SCH (09:17)
[2018-10-26] MEDS: FUROSEMIDE 40 MG INJ IV SCH (10:00)
[2018-10-26] MEDS: PROPOFOL 100 ML IV SCH ×2 (10:30→23:23)
[2018-10-26] MEDS: FLUCONAZOLE 100 MG/50 ML (PMX) 50 ML IVPB SCH (21:49)
[2018-10-27] VITALS (34 sets, daily range): BP systolic 115–144; BP diastolic 50–75; PULSE 53–73; RESP 16–25
[2018-10-27] MEDS: INSULIN ASPART [NOVOLOG] 3 ML PEN SC SCH ×6 (01:00→20:18)
[2018-10-27] MEDS: ACCU-CHEK XX SCH ×6 (01:08→20:18)
[2018-10-27] MEDS: LANSOPRAZOLE 30 MG CAP GTB SCH (05:34)
[2018-10-27] MEDS ORDERED: METOLAZONE 5 MG TAB PO ONE (06:30)
[2018-10-27] MEDS: POLYETHYLENE GLYCOL 17 GM PACKET GTB SCH (08:42)
[2018-10-27] MEDS: MEROPENEM 1 GM/50ML(PMX) 50 ML IVPB SCH ×2 (08:49→20:18)
[2018-10-27] MEDS: METHYLPREDNISOLONE 40 MG INJ IV SCH (08:50)
[2018-10-27] MEDS: DILTIAZEM 30 MG TAB PO SCH ×2 (08:51→20:17)
[2018-10-27] MEDS: FUROSEMIDE 40 MG INJ IV SCH (08:51)
[2018-10-27] MEDS: FOLIC ACID 1 MG TAB PO SCH (08:53)
[2018-10-27] MEDS: ASCORBIC ACID 250 MG TAB PO SCH (08:53)
[2018-10-27] MEDS: MUPIROCIN 2% 22 GM OINT TOP SCH ×2 (08:54→20:18)
[2018-10-27] MEDS: APIXABAN 5 MG TABLET PO SCH ×2 (08:54→20:18)
[2018-10-27] MEDS: ESCITALOPRAM 10 MG TAB PO SCH (08:54)
[2018-10-27] MEDS: BALSAM PERU/CASTOR OIL 60 GM TUBE TOP SCH (08:55)
[2018-10-27] MEDS: ALPRAZOLAM 0.25 MG TAB PO SCH ×2 (09:07→20:17)
[2018-10-27] MEDS: INSULIN GLARGINE [LANTus] (100 UNITS/ML) SYG SC SCH (09:10)
[2018-10-27] MEDS: PROPOFOL 100 ML IV SCH ×2 (09:10→22:30)
[2018-10-27] MEDS: FLUCONAZOLE 100 MG/50 ML (PMX) 50 ML IVPB SCH (22:18)
[2018-10-28] VITALS (34 sets, daily range): BP systolic 117–156; BP diastolic 59–115; PULSE 54–90; RESP 14–26
[2018-10-28] MEDS: ACCU-CHEK XX SCH ×6 (02:07→21:18)
[2018-10-28] MEDS: INSULIN ASPART [NOVOLOG] 3 ML PEN SC SCH ×6 (03:45→20:21)
[2018-10-28] MEDS: LANSOPRAZOLE 30 MG CAP GTB SCH (06:00)
[2018-10-28] MEDS ORDERED: METOLAZONE 5 MG TAB PO ONE (06:48)
[2018-10-28] MEDS: POLYETHYLENE GLYCOL 17 GM PACKET GTB SCH (08:18)
[2018-10-28] MEDS: DILTIAZEM 30 MG TAB PO SCH ×2 (08:19→20:23)
[2018-10-28] MEDS: APIXABAN 5 MG TABLET PO SCH ×2 (08:20→20:23)
[2018-10-28] MEDS: FUROSEMIDE 40 MG INJ IV SCH (08:20)
[2018-10-28] MEDS: METHYLPREDNISOLONE 40 MG INJ IV SCH (08:20)
[2018-10-28] MEDS: MEROPENEM 1 GM/50ML(PMX) 50 ML IVPB SCH ×2 (08:20→20:22)
[2018-10-28] MEDS: FOLIC ACID 1 MG TAB PO SCH (08:21)
[2018-10-28] MEDS: BALSAM PERU/CASTOR OIL 60 GM TUBE TOP SCH (08:21)
[2018-10-28] MEDS: ALPRAZOLAM 0.25 MG TAB PO SCH ×2 (08:21→20:22)
[2018-10-28] MEDS: ASCORBIC ACID 250 MG TAB PO SCH (08:21)
[2018-10-28] MEDS: ESCITALOPRAM 10 MG TAB PO SCH (08:21)
[2018-10-28] MEDS: MUPIROCIN 2% 22 GM OINT TOP SCH ×2 (08:21→20:35)
[2018-10-28] MEDS: PROPOFOL 100 ML IV SCH ×2 (08:22→22:30)
[2018-10-28] MEDS: INSULIN GLARGINE [LANTus] (100 UNITS/ML) SYG SC SCH (08:39)
[2018-10-28] MEDS: ALBUTEROL/IPRATROPIUM (NEB) 3 ML AMP HHN PRN ×2 (14:12→19:37)
[2018-10-28] MEDS: FLUCONAZOLE 100 MG/50 ML (PMX) 50 ML IVPB SCH (21:18)
[2018-10-29] VITALS (34 sets, daily range): BP systolic 115–152; BP diastolic 56–83; PULSE 65–89; RESP 18–31
[2018-10-29] MEDS: INSULIN ASPART [NOVOLOG] 3 ML PEN SC SCH ×6 (00:14→20:46)
[2018-10-29] MEDS: ACCU-CHEK XX SCH ×6 (02:00→21:02)
[2018-10-29] MEDS: LANSOPRAZOLE 30 MG CAP GTB SCH (06:07)
[2018-10-29] MEDS: POLYETHYLENE GLYCOL 17 GM PACKET GTB SCH (08:29)
[2018-10-29] MEDS: DILTIAZEM 30 MG TAB PO SCH ×2 (08:30→20:30)
[2018-10-29] MEDS: APIXABAN 5 MG TABLET PO SCH ×2 (08:30→20:29)
[2018-10-29] MEDS: ALPRAZOLAM 0.25 MG TAB PO SCH ×2 (08:31→20:30)
[2018-10-29] MEDS: ASCORBIC ACID 250 MG TAB PO SCH (08:31)
[2018-10-29] MEDS: ESCITALOPRAM 10 MG TAB PO SCH (08:31)
[2018-10-29] MEDS: MUPIROCIN 2% 22 GM OINT TOP SCH ×2 (08:32→20:48)
[2018-10-29] MEDS: BALSAM PERU/CASTOR OIL 60 GM TUBE TOP SCH (08:32)
[2018-10-29] MEDS: INSULIN GLARGINE [LANTus] (100 UNITS/ML) SYG SC SCH (08:40)
[2018-10-29] MEDS: FOLIC ACID 1 MG TAB PO SCH (08:40)
[2018-10-29] MEDS: PROPOFOL 100 ML IV SCH ×2 (09:35→21:54)
[2018-10-29] MEDS: MEROPENEM 1 GM/50ML(PMX) 50 ML IVPB SCH (09:39)
[2018-10-29] MEDS: SEVELAMER CARBONATE 0.8 GM PKT GTB SCH ×2 (11:22→17:25)
[2018-10-29] MEDS: FLUCONAZOLE 100 MG TAB PO SCH (13:00)
[2018-10-30] VITALS (41 sets, daily range): BP systolic 95–160; BP diastolic 44–118; PULSE 64–91; RESP 20–32
[2018-10-30] MEDS: INSULIN ASPART [NOVOLOG] 3 ML PEN SC SCH ×6 (00:06→21:00)
[2018-10-30] MEDS: ACCU-CHEK XX SCH ×6 (01:01→21:43)
[2018-10-30] MEDS ORDERED: DEXTROSE 5% 1,000 ML IV SCH (06:00)
[2018-10-30] MEDS: LANSOPRAZOLE 30 MG CAP GTB SCH (06:15)
[2018-10-30] MEDS: ALPRAZOLAM 0.25 MG TAB PO SCH ×2 (08:16→21:05)
[2018-10-30] MEDS: ASCORBIC ACID 250 MG TAB PO SCH (08:41)
[2018-10-30] MEDS: FLUCONAZOLE 100 MG TAB PO SCH (08:41)
[2018-10-30] MEDS: APIXABAN 5 MG TABLET PO SCH ×2 (08:41→21:06)
[2018-10-30] MEDS: ESCITALOPRAM 10 MG TAB PO SCH (08:41)
[2018-10-30] MEDS: FOLIC ACID 1 MG TAB PO SCH (08:41)
[2018-10-30] MEDS: DILTIAZEM 30 MG TAB PO SCH ×2 (08:42→21:06)
[2018-10-30] MEDS: SEVELAMER CARBONATE 0.8 GM PKT GTB SCH ×3 (08:42→17:33)
[2018-10-30] MEDS: POLYETHYLENE GLYCOL 17 GM PACKET GTB SCH (08:42)
[2018-10-30] MEDS: BALSAM PERU/CASTOR OIL 60 GM TUBE TOP SCH (08:43)
[2018-10-30] MEDS: MUPIROCIN 2% 22 GM OINT TOP SCH ×2 (08:43→21:06)
[2018-10-30] MEDS: PROPOFOL 100 ML IV SCH ×2 (09:53→21:45)
[2018-10-30] MEDS ORDERED: FUROSEMIDE 40 MG INJ IV SCH ×2 (10:00→18:00)
[2018-10-30] MEDS: ALBUMIN HUMAN 25% 100 ML IV SCH ×3 (10:08→21:05)
[2018-10-30] MEDS: METOCLOPRAMIDE 10 MG INJ IV SCH ×2 (11:57→18:50)
[2018-10-30] MEDS ORDERED: VANCOMYCIN IV PER PHARMACY XX SCH (12:00)
[2018-10-30] MEDS: PIPER-TAZO 2.25 GM (PMX) 50 ML IVPB SCH ×2 (13:21→21:43)
[2018-10-30] MEDS ORDERED: SOD CHLORIDE 0.9% 500 ML IV ONE (13:30)
[2018-10-30] MEDS: metroNIDAZOLE 500 MG/NS (PMX) 100 ML IVPB SCH ×2 (13:57→21:43)
[2018-10-30] MEDS: SOD CHLORIDE 0.9% 1,000 ML IV SCH (13:57)
[2018-10-30] MEDS ORDERED: VANCOMYCIN HCL 1.75 GM in SOD CHLORIDE 0.9% 500 ML IVPB SCH (15:00)
[2018-10-30] MEDS ORDERED: LIDOCAINE 1% (MPF) 5 ML VIAL SC ONE (15:30)
[2018-10-31] VITALS (37 sets, daily range): BP systolic 124–164; BP diastolic 41–76; PULSE 54–81; RESP 18–30
[2018-10-31] MEDS: INSULIN ASPART [NOVOLOG] 3 ML PEN SC SCH ×6 (01:00→20:40)
[2018-10-31] MEDS: METOCLOPRAMIDE 10 MG INJ IV SCH ×4 (01:40→19:46)
[2018-10-31] MEDS: ACCU-CHEK XX SCH (02:00)
[2018-10-31] MEDS: SOD CHLORIDE 0.9% 1,000 ML IV SCH ×2 (03:57→22:57)
[2018-10-31] MEDS: LANSOPRAZOLE 30 MG CAP GTB SCH (05:33)
[2018-10-31] MEDS: PIPER-TAZO 2.25 GM (PMX) 50 ML IVPB SCH ×3 (05:33→21:30)
[2018-10-31] MEDS: metroNIDAZOLE 500 MG/NS (PMX) 100 ML IVPB SCH ×3 (05:33→22:01)
[2018-10-31] MEDS ORDERED: FUROSEMIDE 40 MG INJ IV ONE (07:30)
[2018-10-31] MEDS: SEVELAMER CARBONATE 0.8 GM PKT GTB SCH ×3 (08:01→19:46)
[2018-10-31] MEDS: ESCITALOPRAM 10 MG TAB PO SCH (10:11)
[2018-10-31] MEDS: POLYETHYLENE GLYCOL 17 GM PACKET GTB SCH (10:11)
[2018-10-31] MEDS: ALPRAZOLAM 0.25 MG TAB PO SCH ×2 (10:11→21:08)
[2018-10-31] MEDS: FLUCONAZOLE 100 MG TAB PO SCH (10:12)
[2018-10-31] MEDS: DILTIAZEM 30 MG TAB PO SCH ×2 (10:12→21:00)
[2018-10-31] MEDS: ASCORBIC ACID 250 MG TAB PO SCH (10:12)
[2018-10-31] MEDS: FOLIC ACID 1 MG TAB PO SCH (10:12)
[2018-10-31] MEDS: APIXABAN 5 MG TABLET PO SCH (10:13)
[2018-10-31] MEDS: BALSAM PERU/CASTOR OIL 60 GM TUBE TOP SCH (10:14)
[2018-10-31] MEDS: MUPIROCIN 2% 22 GM OINT TOP SCH ×2 (10:17→21:08)
[2018-10-31] MEDS: PROPOFOL 100 ML IV SCH (10:21)
[2018-10-31] MEDS ORDERED: FUROSEMIDE 20 MG INJ IV ONE (11:30)
[2018-10-31] MEDS: POTASSIUM CHLORIDE 100 ML IVPB SCH ×2 (11:57→14:14)
[2018-11-01] VITALS (35 sets, daily range): BP systolic 118–167; BP diastolic 45–101; PULSE 56–85; RESP 19–32
[2018-11-01] MEDS: METOCLOPRAMIDE 10 MG INJ IV SCH ×4 (00:01→17:38)
[2018-11-01] MEDS: INSULIN ASPART [NOVOLOG] 3 ML PEN SC SCH ×6 (00:59→21:00)
[2018-11-01] MEDS ORDERED: VANCOMYCIN 1.5 GM/NS 250 ML 250 ML IVPB SCH (03:00)
[2018-11-01] MEDS: ALBUTEROL/IPRATROPIUM (NEB) 3 ML AMP HHN PRN ×2 (04:48→23:19)
[2018-11-01] MEDS: PIPER-TAZO 2.25 GM (PMX) 50 ML IVPB SCH ×3 (05:24→22:20)
[2018-11-01] MEDS: metroNIDAZOLE 500 MG/NS (PMX) 100 ML IVPB SCH ×3 (05:25→22:21)
[2018-11-01] MEDS: LANSOPRAZOLE 30 MG CAP GTB SCH (05:26)
[2018-11-01] MEDS ORDERED: FUROSEMIDE 40 MG INJ IV ONE (07:00)
[2018-11-01] MEDS ORDERED: POTASSIUM CHLORIDE 20 MEQ POWDER FOR ORAL SOLN GTB ONE (07:00)
[2018-11-01] MEDS: SEVELAMER CARBONATE 0.8 GM PKT GTB SCH ×3 (07:52→17:37)
[2018-11-01] MEDS: MUPIROCIN 2% 22 GM OINT TOP SCH ×2 (08:46→21:09)
[2018-11-01] MEDS: FLUCONAZOLE 100 MG TAB PO SCH (08:46)
[2018-11-01] MEDS: FOLIC ACID 1 MG TAB PO SCH (08:46)
[2018-11-01] MEDS: POLYETHYLENE GLYCOL 17 GM PACKET GTB SCH (08:46)
[2018-11-01] MEDS: ESCITALOPRAM 10 MG TAB PO SCH (08:46)
[2018-11-01] MEDS: ALPRAZOLAM 0.25 MG TAB PO SCH ×2 (08:46→21:09)
[2018-11-01] MEDS: ASCORBIC ACID 250 MG TAB PO SCH (08:46)
[2018-11-01] MEDS: BALSAM PERU/CASTOR OIL 60 GM TUBE TOP SCH (08:47)
[2018-11-01] MEDS: DILTIAZEM 30 MG TAB PO SCH ×2 (09:00→21:08)
[2018-11-01] MEDS ORDERED: ALBUMIN HUMAN 25% 100 ML ONE (14:08)
[2018-11-01] MEDS ORDERED: BUMETANIDE 4 ML ONE (14:08)
[2018-11-01] MEDS: ALBUMIN HUMAN 25% 100 ML IV SCH ×2 (14:18→22:19)
[2018-11-01] MEDS: BUMETANIDE 1 MG INJ IV SCH ×2 (14:21→22:19)
[2018-11-01] MEDS: POTASSIUM CHLORIDE (SR) 20 MEQ TAB PO SCH ×2 (15:29→21:09)
[2018-11-02] VITALS (37 sets, daily range): BP systolic 117–171; BP diastolic 50–91; PULSE 68–82; RESP 16–29
[2018-11-02] MEDS: METOCLOPRAMIDE 10 MG INJ IV SCH ×4 (00:22→17:56)
[2018-11-02] MEDS: INSULIN ASPART [NOVOLOG] 3 ML PEN SC SCH ×5 (01:00→17:56)
[2018-11-02] MEDS: PIPER-TAZO 2.25 GM (PMX) 50 ML IVPB SCH ×2 (05:59→13:58)
[2018-11-02] MEDS: metroNIDAZOLE 500 MG/NS (PMX) 100 ML IVPB SCH ×2 (06:00→13:58)
[2018-11-02] MEDS: BUMETANIDE 1 MG INJ IV SCH (06:01)
[2018-11-02] MEDS: LANSOPRAZOLE 30 MG CAP GTB SCH (06:04)
[2018-11-02] MEDS ORDERED: ETOMIDATE 20 MG INJ ONE (06:30)
[2018-11-02] MEDS ORDERED: METOLAZONE 5 MG TAB PO ONE (07:00)
[2018-11-02] MEDS: ALBUMIN HUMAN 25% 100 ML IV SCH (07:04)
[2018-11-02] MEDS: POLYETHYLENE GLYCOL 17 GM PACKET GTB SCH (09:00)
[2018-11-02] MEDS: DILTIAZEM 30 MG TAB PO SCH ×2 (09:00→20:37)
[2018-11-02] MEDS: ESCITALOPRAM 10 MG TAB PO SCH (09:06)
[2018-11-02] MEDS: FLUCONAZOLE 100 MG TAB PO SCH (09:06)
[2018-11-02] MEDS: POTASSIUM CHLORIDE 20 MEQ POWDER FOR ORAL SOLN GTB SCH ×2 (09:07→20:37)
[2018-11-02] MEDS: ASCORBIC ACID 250 MG TAB PO SCH (09:07)
[2018-11-02] MEDS: SEVELAMER CARBONATE 0.8 GM PKT GTB SCH ×3 (09:07→17:56)
[2018-11-02] MEDS: FOLIC ACID 1 MG TAB PO SCH (09:08)
[2018-11-02] MEDS: ALPRAZOLAM 0.25 MG TAB PO SCH ×2 (09:12→20:37)
[2018-11-02] MEDS: BALSAM PERU/CASTOR OIL 60 GM TUBE TOP SCH (09:13)
[2018-11-02] MEDS: MUPIROCIN 2% 22 GM OINT TOP SCH ×2 (09:13→20:38)
[2018-11-02] MEDS: IPRATROPIUM (HFA) 12.9 GM INHALER INH SCH ×3 (09:44→19:17)
[2018-11-02] MEDS: ALBUTEROL HFA 8 GM INHALER INH SCH ×3 (09:44→19:17)
[2018-11-03] VITALS (35 sets, daily range): BP systolic 112–150; BP diastolic 47–78; PULSE 69–83; RESP 17–35
[2018-11-03] MEDS: metroNIDAZOLE 500 MG/NS (PMX) 100 ML IVPB SCH ×2 (00:01→05:28)
[2018-11-03] MEDS: METOCLOPRAMIDE 10 MG INJ IV SCH ×5 (00:06→23:18)
[2018-11-03] MEDS ORDERED: VANCOMYCIN 1.5 GM/NS 250 ML 250 ML IVPB SCH (01:00)
[2018-11-03] MEDS: ALBUTEROL HFA 8 GM INHALER INH SCH ×4 (01:42→19:46)
[2018-11-03] MEDS: IPRATROPIUM (HFA) 12.9 GM INHALER INH SCH ×4 (01:42→19:46)
[2018-11-03] MEDS: VANCOMYCIN 1.5 GM/NS 250 ML 250 ML IVPB SCH (02:30)
[2018-11-03] MEDS: PIPER-TAZO 2.25 GM (PMX) 50 ML IVPB SCH ×4 (05:28→21:12)
[2018-11-03] MEDS: LANSOPRAZOLE 30 MG CAP GTB SCH (05:28)
[2018-11-03] MEDS: INSULIN ASPART [NOVOLOG] 3 ML PEN SC SCH ×5 (06:00→23:17)
[2018-11-03] MEDS ORDERED: METOLAZONE 5 MG TAB PO ONE (07:00)
[2018-11-03] MEDS: SEVELAMER CARBONATE 0.8 GM PKT GTB SCH ×3 (07:46→18:31)
[2018-11-03] MEDS: BALSAM PERU/CASTOR OIL 60 GM TUBE TOP SCH (08:52)
[2018-11-03] MEDS: FOLIC ACID 1 MG TAB PO SCH (08:52)
[2018-11-03] MEDS: MUPIROCIN 2% 22 GM OINT TOP SCH ×2 (08:52→21:10)
[2018-11-03] MEDS: FLUCONAZOLE 100 MG TAB PO SCH (08:52)
[2018-11-03] MEDS: ASCORBIC ACID 250 MG TAB PO SCH (08:52)
[2018-11-03] MEDS: ESCITALOPRAM 10 MG TAB PO SCH (08:52)
[2018-11-03] MEDS: ALPRAZOLAM 0.25 MG TAB PO SCH ×2 (08:52→20:15)
[2018-11-03] MEDS: DILTIAZEM 30 MG TAB PO SCH ×2 (08:53→20:16)
[2018-11-03] MEDS: SPIRONOLACTONE 25 MG TAB NGT SCH (08:53)
[2018-11-03] MEDS: POTASSIUM CHLORIDE 20 MEQ POWDER FOR ORAL SOLN GTB SCH ×2 (08:54→20:15)
[2018-11-03] MEDS: BUMETANIDE 1 MG INJ IV SCH (08:54)
[2018-11-03] MEDS ORDERED: POTASSIUM CHLORIDE 20 MEQ POWDER FOR ORAL SOLN GTB ONE (09:00)
[2018-11-03] MEDS ORDERED: CASPOFUNGIN 70 MG in SOD CHLORIDE 0.9% 250 ML IVPB ONE (15:00)
[2018-11-04] VITALS (41 sets, daily range): BP systolic 93–171; BP diastolic 47–94; PULSE 57–94; RESP 17–34
[2018-11-04] MEDS: IPRATROPIUM (HFA) 12.9 GM INHALER INH SCH ×4 (01:10→19:16)
[2018-11-04] MEDS: ALBUTEROL HFA 8 GM INHALER INH SCH ×4 (01:10→19:17)
[2018-11-04] MEDS: hydrALAzine 20 MG INJ IV PRN (04:19)
[2018-11-04] MEDS: PROPOFOL 100 ML IV SCH ×4 (04:19→14:33)
[2018-11-04] MEDS: PIPER-TAZO 2.25 GM (PMX) 50 ML IVPB SCH ×3 (05:27→21:57)
[2018-11-04] MEDS: METOCLOPRAMIDE 10 MG INJ IV SCH ×3 (05:27→18:53)
[2018-11-04] MEDS: LANSOPRAZOLE 30 MG CAP GTB SCH (05:27)
[2018-11-04] MEDS: INSULIN ASPART [NOVOLOG] 3 ML PEN SC SCH ×3 (05:29→19:01)
[2018-11-04] MEDS ORDERED: ACETAZOLAMIDE 500 MG INJ IV ONE (07:00)
[2018-11-04] MEDS: SEVELAMER CARBONATE 0.8 GM PKT GTB SCH ×3 (07:15→18:53)
[2018-11-04] MEDS: FOLIC ACID 1 MG TAB PO SCH (08:24)
[2018-11-04] MEDS: SPIRONOLACTONE 25 MG TAB NGT SCH (08:24)
[2018-11-04] MEDS: ESCITALOPRAM 10 MG TAB PO SCH (08:24)
[2018-11-04] MEDS: ASCORBIC ACID 250 MG TAB PO SCH (08:24)
[2018-11-04] MEDS: ALPRAZOLAM 0.25 MG TAB PO SCH ×2 (08:24→20:08)
[2018-11-04] MEDS: POTASSIUM CHLORIDE 20 MEQ POWDER FOR ORAL SOLN GTB SCH ×2 (08:24→20:07)
[2018-11-04] MEDS: DILTIAZEM 30 MG TAB PO SCH ×2 (08:25→20:07)
[2018-11-04] MEDS: BALSAM PERU/CASTOR OIL 60 GM TUBE TOP SCH (08:34)
[2018-11-04] MEDS: MUPIROCIN 2% 22 GM OINT TOP SCH ×2 (08:35→20:08)
[2018-11-04] MEDS: CASPOFUNGIN 50 MG in SOD CHLORIDE 0.9% 250 ML IVPB SCH (15:30)
[2018-11-05] VITALS (46 sets, daily range): BP systolic 90–139; BP diastolic 44–96; PULSE 51–71; RESP 19–27
[2018-11-05] MEDS: METOCLOPRAMIDE 10 MG INJ IV SCH ×4 (00:33→18:27)
[2018-11-05] MEDS: IPRATROPIUM (HFA) 12.9 GM INHALER INH SCH ×4 (01:03→20:06)
[2018-11-05] MEDS: ALBUTEROL HFA 8 GM INHALER INH SCH ×4 (01:03→20:06)
[2018-11-05] MEDS: VANCOMYCIN 1.5 GM/NS 250 ML 250 ML IVPB SCH (02:42)
[2018-11-05] MEDS: LANSOPRAZOLE 30 MG CAP GTB SCH (05:18)
[2018-11-05] MEDS: INSULIN ASPART [NOVOLOG] 3 ML PEN SC SCH ×4 (05:46→18:00)
[2018-11-05] MEDS: PIPER-TAZO 2.25 GM (PMX) 50 ML IVPB SCH ×3 (05:55→21:18)
[2018-11-05] MEDS: SEVELAMER CARBONATE 0.8 GM PKT GTB SCH ×3 (06:42→18:27)
[2018-11-05] MEDS: DILTIAZEM 30 MG TAB PO SCH ×2 (09:00→20:35)
[2018-11-05] MEDS ORDERED: ACETAZOLAMIDE 500 MG INJ IV SCH (09:00)
[2018-11-05] MEDS: POTASSIUM CHLORIDE 20 MEQ POWDER FOR ORAL SOLN GTB SCH ×2 (10:10→21:18)
[2018-11-05] MEDS: PROPOFOL 100 ML IV SCH ×2 (10:10→19:30)
[2018-11-05] MEDS: SPIRONOLACTONE 25 MG TAB NGT SCH (10:11)
[2018-11-05] MEDS: ASCORBIC ACID 250 MG TAB PO SCH (10:11)
[2018-11-05] MEDS: ESCITALOPRAM 10 MG TAB PO SCH (10:11)
[2018-11-05] MEDS: FOLIC ACID 1 MG TAB PO SCH (10:11)
[2018-11-05] MEDS: BALSAM PERU/CASTOR OIL 60 GM TUBE TOP SCH (10:12)
[2018-11-05] MEDS: MUPIROCIN 2% 22 GM OINT TOP SCH ×2 (10:12→21:18)
[2018-11-05] MEDS: ALPRAZOLAM 0.25 MG TAB PO SCH ×2 (10:59→20:36)
[2018-11-05] MEDS: morphine 2 MG INJ IV PRN (11:00)
[2018-11-05] MEDS: CASPOFUNGIN 50 MG in SOD CHLORIDE 0.9% 250 ML IVPB SCH (15:35)
[2018-11-06] VITALS (58 sets, daily range): BP systolic 101–148; BP diastolic 48–87; PULSE 61–78; RESP 17–38
[2018-11-06] MEDS: METOCLOPRAMIDE 10 MG INJ IV SCH ×4 (00:25→17:34)
[2018-11-06] MEDS: IPRATROPIUM (HFA) 12.9 GM INHALER INH SCH ×4 (01:21→21:03)
[2018-11-06] MEDS: ALBUTEROL HFA 8 GM INHALER INH SCH ×4 (01:21→21:03)
[2018-11-06] MEDS: INSULIN ASPART [NOVOLOG] 3 ML PEN SC SCH ×4 (06:00→17:35)
[2018-11-06] MEDS: PIPER-TAZO 2.25 GM (PMX) 50 ML IVPB SCH ×3 (06:43→21:38)
[2018-11-06] MEDS: LANSOPRAZOLE 30 MG CAP GTB SCH (06:44)
[2018-11-06] MEDS: PROPOFOL 100 ML IV SCH ×2 (07:30→19:30)
[2018-11-06] MEDS: DILTIAZEM 30 MG TAB PO SCH ×2 (09:00→20:26)
[2018-11-06] MEDS ORDERED: ACETAZOLAMIDE 500 MG INJ IV ONE (09:00)
[2018-11-06] MEDS: BUMETANIDE 1 MG INJ IV SCH (09:36)
[2018-11-06] MEDS: POTASSIUM CHLORIDE 20 MEQ POWDER FOR ORAL SOLN GTB SCH ×2 (09:37→20:27)
[2018-11-06] MEDS: FOLIC ACID 1 MG TAB PO SCH (09:37)
[2018-11-06] MEDS: ESCITALOPRAM 10 MG TAB PO SCH (09:37)
[2018-11-06] MEDS: ASCORBIC ACID 250 MG TAB PO SCH (09:37)
[2018-11-06] MEDS: SPIRONOLACTONE 25 MG TAB NGT SCH (09:38)
[2018-11-06] MEDS: BALSAM PERU/CASTOR OIL 60 GM TUBE TOP SCH (09:39)
[2018-11-06] MEDS: MUPIROCIN 2% 22 GM OINT TOP SCH ×2 (09:39→20:26)
[2018-11-06] MEDS: ALPRAZOLAM 0.25 MG TAB PO SCH ×2 (09:43→20:25)
[2018-11-06] MEDS: SEVELAMER CARBONATE 0.8 GM PKT GTB SCH ×3 (09:45→17:35)
[2018-11-06] MEDS: CASPOFUNGIN 50 MG in SOD CHLORIDE 0.9% 250 ML IVPB SCH (15:22)
[2018-11-07] VITALS (54 sets, daily range): BP systolic 89–135; BP diastolic 47–105; PULSE 59–76; RESP 16–29
[2018-11-07] MEDS: METOCLOPRAMIDE 10 MG INJ IV SCH ×2 (00:29→05:20)
[2018-11-07] MEDS: INSULIN ASPART [NOVOLOG] 3 ML PEN SC SCH ×5 (00:31→23:41)
[2018-11-07] MEDS: ALBUTEROL HFA 8 GM INHALER INH SCH ×4 (01:34→19:06)
[2018-11-07] MEDS: IPRATROPIUM (HFA) 12.9 GM INHALER INH SCH ×4 (01:34→19:06)
[2018-11-07] MEDS: PIPER-TAZO 2.25 GM (PMX) 50 ML IVPB SCH (05:20)
[2018-11-07] MEDS: LANSOPRAZOLE 30 MG CAP GTB SCH (05:21)
[2018-11-07] MEDS: PROPOFOL 100 ML IV SCH ×2 (06:51→18:19)
[2018-11-07] MEDS: SEVELAMER CARBONATE 0.8 GM PKT GTB SCH ×3 (06:53→18:19)
[2018-11-07] MEDS: DILTIAZEM 30 MG TAB PO SCH ×2 (09:00→20:36)
[2018-11-07] MEDS: POTASSIUM CHLORIDE 20 MEQ POWDER FOR ORAL SOLN GTB SCH ×2 (09:07→20:35)
[2018-11-07] MEDS: MUPIROCIN 2% 22 GM OINT TOP SCH ×2 (09:08→20:36)
[2018-11-07] MEDS: FOLIC ACID 1 MG TAB PO SCH (09:08)
[2018-11-07] MEDS: BALSAM PERU/CASTOR OIL 60 GM TUBE TOP SCH (09:08)
[2018-11-07] MEDS: SPIRONOLACTONE 25 MG TAB NGT SCH (09:08)
[2018-11-07] MEDS: ESCITALOPRAM 10 MG TAB PO SCH (09:09)
[2018-11-07] MEDS: BUMETANIDE 1 MG INJ IV SCH (09:09)
[2018-11-07] MEDS: ASCORBIC ACID 250 MG TAB PO SCH (09:10)
[2018-11-07] MEDS: ALPRAZOLAM 0.25 MG TAB PO SCH ×2 (11:21→20:35)
[2018-11-07] MEDS: morphine 2 MG INJ IV PRN (13:42)
[2018-11-07] MEDS: CASPOFUNGIN 50 MG in SOD CHLORIDE 0.9% 250 ML IVPB SCH (15:52)
[2018-11-07] MEDS: CEFEPIME 1GM/50 ML (PMX) 50 ML IVPB SCH (20:36)
[2018-11-08] VITALS (43 sets, daily range): BP systolic 105–152; BP diastolic 45–122; PULSE 62–78; RESP 20–30
[2018-11-08] MEDS: ALBUTEROL HFA 8 GM INHALER INH SCH ×4 (01:12→20:27)
[2018-11-08] MEDS: IPRATROPIUM (HFA) 12.9 GM INHALER INH SCH ×4 (01:13→20:27)
[2018-11-08] MEDS: LANSOPRAZOLE 30 MG CAP GTB SCH (05:08)
[2018-11-08] MEDS: INSULIN ASPART [NOVOLOG] 3 ML PEN SC SCH ×4 (05:25→23:31)
[2018-11-08] MEDS: PROPOFOL 100 ML IV SCH ×2 (07:06→19:30)
[2018-11-08] MEDS: SEVELAMER CARBONATE 0.8 GM PKT GTB SCH ×3 (08:00→17:06)
[2018-11-08] MEDS: CEFEPIME 1GM/50 ML (PMX) 50 ML IVPB SCH (09:57)
[2018-11-08] MEDS: BUMETANIDE 1 MG INJ IV SCH (09:57)
[2018-11-08] MEDS: SPIRONOLACTONE 25 MG TAB NGT SCH (09:57)
[2018-11-08] MEDS: POTASSIUM CHLORIDE 20 MEQ POWDER FOR ORAL SOLN GTB SCH (09:57)
[2018-11-08] MEDS: DILTIAZEM 30 MG TAB PO SCH ×2 (09:58→20:29)
[2018-11-08] MEDS: FOLIC ACID 1 MG TAB PO SCH (09:58)
[2018-11-08] MEDS: ASCORBIC ACID 250 MG TAB PO SCH (09:58)
[2018-11-08] MEDS: ESCITALOPRAM 10 MG TAB PO SCH (09:58)
[2018-11-08] MEDS: ALPRAZOLAM 0.25 MG TAB PO SCH (10:07)
[2018-11-08] MEDS: BALSAM PERU/CASTOR OIL 60 GM TUBE TOP SCH (10:08)
[2018-11-08] MEDS: MUPIROCIN 2% 22 GM OINT TOP SCH ×2 (10:08→20:30)
[2018-11-08] MEDS ORDERED: ALPRAZOLAM 0.25 MG TAB PO PRN (14:00)
[2018-11-08] MEDS: CASPOFUNGIN 50 MG in SOD CHLORIDE 0.9% 250 ML IVPB SCH (16:26)
[2018-11-09] VITALS (35 sets, daily range): BP systolic 93–129; BP diastolic 49–105; PULSE 67–81; RESP 19–28
[2018-11-09] MEDS: ALBUTEROL HFA 8 GM INHALER INH SCH ×4 (02:15→19:32)
[2018-11-09] MEDS: IPRATROPIUM (HFA) 12.9 GM INHALER INH SCH ×4 (02:15→19:32)
[2018-11-09] MEDS: LANSOPRAZOLE 30 MG CAP GTB SCH (05:05)
[2018-11-09] MEDS: INSULIN ASPART [NOVOLOG] 3 ML PEN SC SCH ×3 (05:42→17:59)
[2018-11-09] MEDS: PROPOFOL 100 ML IV SCH ×2 (07:30→18:30)
[2018-11-09] MEDS: ASCORBIC ACID 250 MG TAB PO SCH (08:48)
[2018-11-09] MEDS: POTASSIUM CHLORIDE 20 MEQ POWDER FOR ORAL SOLN GTB SCH (08:48)
[2018-11-09] MEDS: SEVELAMER CARBONATE 0.8 GM PKT GTB SCH ×3 (08:48→17:59)
[2018-11-09] MEDS: ESCITALOPRAM 10 MG TAB PO SCH (08:48)
[2018-11-09] MEDS: BUMETANIDE 1 MG INJ IV SCH (08:48)
[2018-11-09] MEDS: FOLIC ACID 1 MG TAB PO SCH (08:49)
[2018-11-09] MEDS: SPIRONOLACTONE 25 MG TAB NGT SCH (08:49)
[2018-11-09] MEDS: DILTIAZEM 30 MG TAB PO SCH ×2 (08:49→20:55)
[2018-11-09] MEDS: BALSAM PERU/CASTOR OIL 60 GM TUBE TOP SCH (08:52)
[2018-11-09] MEDS: MUPIROCIN 2% 22 GM OINT TOP SCH ×2 (08:52→20:55)
[2018-11-09] MEDS: CASPOFUNGIN 50 MG in SOD CHLORIDE 0.9% 250 ML IVPB SCH (15:08)
[2018-11-10] VITALS (36 sets, daily range): BP systolic 90–136; BP diastolic 45–107; PULSE 67–81; RESP 20–29
[2018-11-10] MEDS: ALBUTEROL HFA 8 GM INHALER INH SCH ×4 (01:02→19:42)
[2018-11-10] MEDS: IPRATROPIUM (HFA) 12.9 GM INHALER INH SCH ×4 (01:02→19:42)
[2018-11-10] MEDS: INSULIN ASPART [NOVOLOG] 3 ML PEN SC SCH ×5 (05:49→23:18)
[2018-11-10] MEDS: LANSOPRAZOLE 30 MG CAP GTB SCH (05:49)
[2018-11-10] MEDS: SEVELAMER CARBONATE 0.8 GM PKT GTB SCH ×3 (05:50→18:02)
[2018-11-10] MEDS: PROPOFOL 100 ML IV SCH ×2 (05:50→19:30)
[2018-11-10] MEDS: BUMETANIDE 1 MG INJ IV SCH (09:17)
[2018-11-10] MEDS: FOLIC ACID 1 MG TAB PO SCH (09:18)
[2018-11-10] MEDS: POTASSIUM CHLORIDE 20 MEQ POWDER FOR ORAL SOLN GTB SCH (09:18)
[2018-11-10] MEDS: ESCITALOPRAM 10 MG TAB PO SCH (09:18)
[2018-11-10] MEDS: MUPIROCIN 2% 22 GM OINT TOP SCH ×2 (09:19→20:31)
[2018-11-10] MEDS: DILTIAZEM 30 MG TAB PO SCH ×2 (09:19→20:31)
[2018-11-10] MEDS: BALSAM PERU/CASTOR OIL 60 GM TUBE TOP SCH (09:19)
[2018-11-10] MEDS: ASCORBIC ACID 250 MG TAB PO SCH (09:19)
[2018-11-10] MEDS: SPIRONOLACTONE 25 MG TAB NGT SCH (09:19)
[2018-11-10] MEDS: CASPOFUNGIN 50 MG in SOD CHLORIDE 0.9% 250 ML IVPB SCH (15:09)
[2018-11-10] MEDS: morphine 2 MG INJ IV PRN (23:26)
[2018-11-11] VITALS (39 sets, daily range): BP systolic 96–149; BP diastolic 46–84; PULSE 63–88; RESP 18–31
[2018-11-11] MEDS: ALBUTEROL HFA 8 GM INHALER INH SCH ×4 (01:08→19:27)
[2018-11-11] MEDS: IPRATROPIUM (HFA) 12.9 GM INHALER INH SCH ×4 (01:08→19:27)
[2018-11-11] MEDS: INSULIN ASPART [NOVOLOG] 3 ML PEN SC SCH ×4 (05:34→23:53)
[2018-11-11] MEDS: LANSOPRAZOLE 30 MG CAP GTB SCH (05:34)
[2018-11-11] MEDS ORDERED: ACETAZOLAMIDE 500 MG INJ IV ONE (07:00)
[2018-11-11] MEDS: PROPOFOL 100 ML IV SCH ×2 (07:30→19:30)
[2018-11-11] MEDS: SEVELAMER CARBONATE 0.8 GM PKT GTB SCH ×3 (08:41→18:25)
[2018-11-11] MEDS: ESCITALOPRAM 10 MG TAB PO SCH (08:51)
[2018-11-11] MEDS: DILTIAZEM 30 MG TAB PO SCH ×2 (08:51→20:58)
[2018-11-11] MEDS: ASCORBIC ACID 250 MG TAB PO SCH (08:51)
[2018-11-11] MEDS: BUMETANIDE 1 MG INJ IV SCH (08:52)
[2018-11-11] MEDS: MUPIROCIN 2% 22 GM OINT TOP SCH ×2 (08:52→20:59)
[2018-11-11] MEDS: BALSAM PERU/CASTOR OIL 60 GM TUBE TOP SCH (08:52)
[2018-11-11] MEDS: SPIRONOLACTONE 25 MG TAB NGT SCH (08:52)
[2018-11-11] MEDS: POTASSIUM CHLORIDE 20 MEQ POWDER FOR ORAL SOLN GTB SCH (08:52)
[2018-11-11] MEDS: FOLIC ACID 1 MG TAB PO SCH (09:15)
[2018-11-11] MEDS: CASPOFUNGIN 50 MG in SOD CHLORIDE 0.9% 250 ML IVPB SCH (16:00)
[2018-11-11] MEDS: ASPIRIN 81 MG TAB GTB SCH (18:33)
[2018-11-11] MEDS ORDERED: ALPRAZOLAM 0.25 MG TAB GTB PRN (21:30)
[2018-11-11] MEDS ORDERED: HYDROCODONE/APAP (5/325) TAB GTB PRN (22:30)
[2018-11-12] VITALS (36 sets, daily range): BP systolic 99–155; BP diastolic 48–103; PULSE 66–80; RESP 19–29
[2018-11-12] MEDS: ALBUTEROL HFA 8 GM INHALER INH SCH ×4 (01:43→19:24)
[2018-11-12] MEDS: IPRATROPIUM (HFA) 12.9 GM INHALER INH SCH ×4 (01:43→19:23)
[2018-11-12] MEDS: LANSOPRAZOLE 30 MG CAP GTB SCH (05:53)
[2018-11-12] MEDS: INSULIN ASPART [NOVOLOG] 3 ML PEN SC SCH ×3 (06:00→21:00)
[2018-11-12] MEDS ORDERED: ACETAZOLAMIDE 500 MG INJ IV ONE (07:30)
[2018-11-12] MEDS: PROPOFOL 100 ML IV SCH ×2 (07:30→16:50)
[2018-11-12] MEDS: BUMETANIDE 1 MG INJ IV SCH (09:16)
[2018-11-12] MEDS: ASPIRIN 81 MG TAB GTB SCH (09:16)
[2018-11-12] MEDS: ESCITALOPRAM 10 MG TAB GTB SCH (09:16)
[2018-11-12] MEDS: FOLIC ACID 1 MG TAB GTB SCH (09:17)
[2018-11-12] MEDS: ASCORBIC ACID 250 MG TAB GTB SCH (09:17)
[2018-11-12] MEDS: DILTIAZEM 30 MG TAB GTB SCH ×2 (09:17→21:27)
[2018-11-12] MEDS: POTASSIUM CHLORIDE 20 MEQ POWDER FOR ORAL SOLN GTB SCH (09:17)
[2018-11-12] MEDS: SEVELAMER CARBONATE 0.8 GM PKT GTB SCH ×3 (09:18→21:27)
[2018-11-12] MEDS: MUPIROCIN 2% 22 GM OINT TOP SCH ×2 (09:19→21:29)
[2018-11-12] MEDS: SPIRONOLACTONE 25 MG TAB NGT SCH (09:19)
[2018-11-12] MEDS: BALSAM PERU/CASTOR OIL 60 GM TUBE TOP SCH (09:20)
[2018-11-12] MEDS: CASPOFUNGIN 50 MG in SOD CHLORIDE 0.9% 250 ML IVPB SCH (16:50)
[2018-11-13] VITALS (36 sets, daily range): BP systolic 96–145; BP diastolic 47–106; PULSE 70–84; RESP 19–28
[2018-11-13] MEDS: ALBUTEROL HFA 8 GM INHALER INH SCH ×4 (01:32→19:17)
[2018-11-13] MEDS: IPRATROPIUM (HFA) 12.9 GM INHALER INH SCH ×4 (01:32→19:17)
[2018-11-13] MEDS: LANSOPRAZOLE 30 MG CAP GTB SCH (05:43)
[2018-11-13] MEDS: PROPOFOL 100 ML IV SCH ×2 (06:14→14:53)
[2018-11-13] MEDS ORDERED: ACETAZOLAMIDE 500 MG INJ IV ONE (07:30)
[2018-11-13] MEDS: INSULIN ASPART [NOVOLOG] 3 ML PEN SC SCH (09:00)
[2018-11-13] MEDS: BUMETANIDE 1 MG INJ IV SCH (11:10)
[2018-11-13] MEDS: POTASSIUM CHLORIDE 20 MEQ POWDER FOR ORAL SOLN GTB SCH (11:11)
[2018-11-13] MEDS: ASCORBIC ACID 250 MG TAB GTB SCH (11:11)
[2018-11-13] MEDS: ESCITALOPRAM 10 MG TAB GTB SCH (11:11)
[2018-11-13] MEDS: SEVELAMER CARBONATE 0.8 GM PKT GTB SCH ×3 (11:11→21:02)
[2018-11-13] MEDS: SPIRONOLACTONE 25 MG TAB NGT SCH (11:12)
[2018-11-13] MEDS: ASPIRIN 81 MG TAB GTB SCH (11:12)
[2018-11-13] MEDS: DILTIAZEM 30 MG TAB GTB SCH ×2 (11:12→21:02)
[2018-11-13] MEDS: FOLIC ACID 1 MG TAB GTB SCH (11:13)
[2018-11-13] MEDS: MUPIROCIN 2% 22 GM OINT TOP SCH ×2 (11:13→21:01)
[2018-11-13] MEDS: BALSAM PERU/CASTOR OIL 60 GM TUBE TOP SCH (11:14)
[2018-11-13] MEDS: CASPOFUNGIN 50 MG in SOD CHLORIDE 0.9% 250 ML IVPB SCH (15:56)
[2018-11-14] VITALS (35 sets, daily range): BP systolic 113–147; BP diastolic 51–96; PULSE 68–87; RESP 18–34
[2018-11-14] MEDS: ALBUTEROL HFA 8 GM INHALER INH SCH ×4 (01:47→20:36)
[2018-11-14] MEDS: IPRATROPIUM (HFA) 12.9 GM INHALER INH SCH ×4 (01:47→20:37)
[2018-11-14] MEDS: LANSOPRAZOLE 30 MG CAP GTB SCH (05:20)
[2018-11-14] MEDS: SEVELAMER CARBONATE 0.8 GM PKT GTB SCH ×3 (11:09→20:08)
[2018-11-14] MEDS: BUMETANIDE 1 MG INJ IV SCH (11:09)
[2018-11-14] MEDS: SPIRONOLACTONE 25 MG TAB NGT SCH (11:10)
[2018-11-14] MEDS: ESCITALOPRAM 10 MG TAB GTB SCH (11:10)
[2018-11-14] MEDS: POTASSIUM CHLORIDE 20 MEQ POWDER FOR ORAL SOLN GTB SCH (11:10)
[2018-11-14] MEDS: DILTIAZEM 30 MG TAB GTB SCH ×2 (11:11→20:08)
[2018-11-14] MEDS: ASCORBIC ACID 250 MG TAB GTB SCH (11:11)
[2018-11-14] MEDS: ASPIRIN 81 MG TAB GTB SCH (11:11)
[2018-11-14] MEDS: FOLIC ACID 1 MG TAB GTB SCH (11:11)
[2018-11-14] MEDS: MUPIROCIN 2% 22 GM OINT TOP SCH ×2 (11:12→20:08)
[2018-11-14] MEDS: BALSAM PERU/CASTOR OIL 60 GM TUBE TOP SCH (11:12)
[2018-11-15] VITALS (36 sets, daily range): BP systolic 109–156; BP diastolic 59–109; PULSE 74–91; RESP 19–33
[2018-11-15] MEDS: IPRATROPIUM (HFA) 12.9 GM INHALER INH SCH ×4 (01:06→22:00)
[2018-11-15] MEDS: ALBUTEROL HFA 8 GM INHALER INH SCH ×4 (01:06→22:00)
[2018-11-15] MEDS: LANSOPRAZOLE 30 MG CAP GTB SCH (05:00)
[2018-11-15] MEDS ORDERED: METOLAZONE 5 MG TAB PO ONE (08:30)
[2018-11-15] MEDS: ESCITALOPRAM 10 MG TAB GTB SCH (08:47)
[2018-11-15] MEDS: SEVELAMER CARBONATE 0.8 GM PKT GTB SCH ×3 (08:47→20:10)
[2018-11-15] MEDS: DILTIAZEM 30 MG TAB GTB SCH ×2 (08:48→20:11)
[2018-11-15] MEDS: ASCORBIC ACID 250 MG TAB GTB SCH (08:48)
[2018-11-15] MEDS: ASPIRIN 81 MG TAB GTB SCH (08:48)
[2018-11-15] MEDS: SPIRONOLACTONE 25 MG TAB NGT SCH (08:48)
[2018-11-15] MEDS: FOLIC ACID 1 MG TAB GTB SCH (08:48)
[2018-11-15] MEDS: BUMETANIDE 1 MG INJ IV SCH (08:49)
[2018-11-15] MEDS: POTASSIUM CHLORIDE 20 MEQ POWDER FOR ORAL SOLN GTB SCH (08:49)
[2018-11-15] MEDS: MUPIROCIN 2% 22 GM OINT TOP SCH ×2 (08:50→20:10)
[2018-11-15] MEDS: BALSAM PERU/CASTOR OIL 60 GM TUBE TOP SCH (08:50)
[2018-11-16] VITALS (38 sets, daily range): BP systolic 92–166; BP diastolic 54–95; PULSE 79–95; RESP 16–30
[2018-11-16] MEDS: IPRATROPIUM (HFA) 12.9 GM INHALER INH SCH ×4 (01:38→20:07)
[2018-11-16] MEDS: ALBUTEROL HFA 8 GM INHALER INH SCH ×4 (01:38→20:07)
[2018-11-16] MEDS: LANSOPRAZOLE 30 MG CAP GTB SCH (05:41)
[2018-11-16] MEDS: METOLAZONE 5 MG TAB PO SCH (09:00)
[2018-11-16] MEDS: ASPIRIN 81 MG TAB GTB SCH (09:00)
[2018-11-16] MEDS: FOLIC ACID 1 MG TAB GTB SCH (09:00)
[2018-11-16] MEDS: ASCORBIC ACID 250 MG TAB GTB SCH (09:00)
[2018-11-16] MEDS: SEVELAMER CARBONATE 0.8 GM PKT GTB SCH ×3 (09:00→20:48)
[2018-11-16] MEDS: POTASSIUM CHLORIDE 20 MEQ POWDER FOR ORAL SOLN GTB SCH (09:00)
[2018-11-16] MEDS: ESCITALOPRAM 10 MG TAB GTB SCH (09:00)
[2018-11-16] MEDS: DILTIAZEM 30 MG TAB GTB SCH ×2 (09:00→20:48)
[2018-11-16] MEDS: SPIRONOLACTONE 25 MG TAB NGT SCH (09:00)
[2018-11-16] MEDS: BALSAM PERU/CASTOR OIL 60 GM TUBE TOP SCH (09:15)
[2018-11-16] MEDS: MUPIROCIN 2% 22 GM OINT TOP SCH ×2 (09:15→20:48)
[2018-11-16] MEDS: BUMETANIDE 1 MG INJ IV SCH (09:18)
[2018-11-16] MEDS ORDERED: LIDOCAINE 1%/EPI 30 ML INJ ONE (13:48)
[2018-11-16] MEDS ORDERED: LIDOCAINE 2% (SDV) 5 ML INJ ONE (14:35)
[2018-11-16] MEDS ORDERED: FENTAnyl 50 MCG/ML VIAL ONE (14:35)
[2018-11-16] MEDS ORDERED: PROPOFOL 20 ML ONE (14:35)
[2018-11-16] MEDS ORDERED: DIPHENHYDRAMINE 50 MG INJ IV PRN (16:30)
[2018-11-16] MEDS ORDERED: MEPERIDINE 25 MG INJ IV PRN (16:30)
[2018-11-16] MEDS ORDERED: METOCLOPRAMIDE 10 MG INJ IV PRN (16:30)
[2018-11-16] MEDS ORDERED: ONDANSETRON 4 MG INJ IV PRN (16:30)
[2018-11-16] MEDS ORDERED: FENTAnyl 50 MCG/ML VIAL IV PRN (16:30)
[2018-11-16] MEDS ORDERED: HYDROmorphONE 1 MG/5 ML IV SYRINGE IV PRN ×2 (16:30)
[2018-11-17] VITALS (30 sets, daily range): BP systolic 134–167; BP diastolic 56–110; PULSE 82–110; RESP 18–35
[2018-11-17] MEDS: ALBUTEROL HFA 8 GM INHALER INH SCH ×4 (01:07→19:32)
[2018-11-17] MEDS: IPRATROPIUM (HFA) 12.9 GM INHALER INH SCH ×4 (01:07→19:32)
[2018-11-17] MEDS: LANSOPRAZOLE 30 MG CAP GTB SCH (05:16)
[2018-11-17] MEDS: BUMETANIDE 1 MG INJ IV SCH (08:33)
[2018-11-17] MEDS: BALSAM PERU/CASTOR OIL 60 GM TUBE TOP SCH (08:33)
[2018-11-17] MEDS: MUPIROCIN 2% 22 GM OINT TOP SCH ×2 (08:33→20:48)
[2018-11-17] MEDS: SEVELAMER CARBONATE 0.8 GM PKT GTB SCH ×3 (08:34→20:47)
[2018-11-17] MEDS: METOLAZONE 5 MG TAB PO SCH (08:34)
[2018-11-17] MEDS: ESCITALOPRAM 10 MG TAB GTB SCH (08:34)
[2018-11-17] MEDS: ASCORBIC ACID 250 MG TAB GTB SCH (08:34)
[2018-11-17] MEDS: DILTIAZEM 30 MG TAB GTB SCH ×2 (08:34→20:48)
[2018-11-17] MEDS: ASPIRIN 81 MG TAB GTB SCH (08:34)
[2018-11-17] MEDS: POTASSIUM CHLORIDE 20 MEQ POWDER FOR ORAL SOLN GTB SCH (08:34)
[2018-11-17] MEDS: SPIRONOLACTONE 25 MG TAB NGT SCH (08:34)
[2018-11-17] MEDS: FOLIC ACID 1 MG TAB GTB SCH (08:35)
[2018-11-17] MEDS: MEROPENEM 500MG/50 ML (PMX) 50 ML IVPB SCH ×2 (11:50→20:48)
[2018-11-17] MEDS ORDERED: CASPOFUNGIN 70 MG in SOD CHLORIDE 0.9% 250 ML IVPB ONE (12:30)
[2018-11-17] MEDS: APIXABAN 5 MG TABLET PO SCH (20:47)
[2018-11-18] VITALS (18 sets, daily range): BP systolic 134–180; BP diastolic 63–82; PULSE 79–107; RESP 21–30
[2018-11-18] MEDS: IPRATROPIUM (HFA) 12.9 GM INHALER INH SCH ×4 (01:21→19:37)
[2018-11-18] MEDS: ALBUTEROL HFA 8 GM INHALER INH SCH ×4 (01:21→19:37)
[2018-11-18] MEDS: LANSOPRAZOLE 30 MG CAP GTB SCH (05:29)
[2018-11-18] MEDS: hydrALAzine 20 MG INJ IV PRN (06:47)
[2018-11-18] MEDS: ACETAMINOPHEN 325 MG TAB PEG PRN ×2 (06:47→20:48)
[2018-11-18] MEDS ORDERED: TOBRAMYCIN IV PER PHARMACY XX SCH (07:00)
[2018-11-18] MEDS ORDERED: VANCOMYCIN IV PER PHARMACY XX SCH (07:00)
[2018-11-18] MEDS: MEROPENEM 500MG/50 ML (PMX) 50 ML IVPB SCH ×2 (08:33→20:38)
[2018-11-18] MEDS: ESCITALOPRAM 10 MG TAB GTB SCH (08:46)
[2018-11-18] MEDS: DILTIAZEM 30 MG TAB GTB SCH ×2 (08:47→20:48)
[2018-11-18] MEDS: SEVELAMER CARBONATE 0.8 GM PKT GTB SCH ×3 (08:47→20:38)
[2018-11-18] MEDS: ASPIRIN 81 MG TAB GTB SCH (08:47)
[2018-11-18] MEDS: APIXABAN 5 MG TABLET PO SCH ×2 (08:47→20:38)
[2018-11-18] MEDS: METOLAZONE 5 MG TAB PO SCH (08:47)
[2018-11-18] MEDS: SPIRONOLACTONE 25 MG TAB NGT SCH (08:47)
[2018-11-18] MEDS: POTASSIUM CHLORIDE 20 MEQ POWDER FOR ORAL SOLN GTB SCH (08:48)
[2018-11-18] MEDS: ASCORBIC ACID 250 MG TAB GTB SCH (08:48)
[2018-11-18] MEDS: BALSAM PERU/CASTOR OIL 60 GM TUBE TOP SCH (08:48)
[2018-11-18] MEDS: MUPIROCIN 2% 22 GM OINT TOP SCH ×2 (08:48→20:38)
[2018-11-18] MEDS: FOLIC ACID 1 MG TAB GTB SCH (08:50)
[2018-11-18] MEDS ORDERED: TOBRAMYCIN 150 MG in SOD CHLORIDE 0.9% 100 ML IVPB SCH (09:00)
[2018-11-18] MEDS ORDERED: VANCOMYCIN HCL 1.75 GM in SOD CHLORIDE 0.9% 500 ML IVPB SCH (10:00)
[2018-11-18] MEDS: CASPOFUNGIN 50 MG in SOD CHLORIDE 0.9% 250 ML IVPB SCH (14:04)
[2018-11-18] MEDS ORDERED: SOD CHLORIDE 0.9% 500 ML IV ONE (16:30)
[2018-11-18] MEDS: metroNIDAZOLE 500 MG TAB NGT SCH (22:39)
[2018-11-19] VITALS (21 sets, daily range): BP systolic 125–177; BP diastolic 62–93; PULSE 75–107; RESP 20–33
[2018-11-19] MEDS: ALBUTEROL HFA 8 GM INHALER INH SCH ×4 (01:20→19:44)
[2018-11-19] MEDS: IPRATROPIUM (HFA) 12.9 GM INHALER INH SCH ×4 (01:20→19:44)
[2018-11-19] MEDS: metroNIDAZOLE 500 MG TAB NGT SCH ×3 (04:59→22:07)
[2018-11-19] MEDS: LANSOPRAZOLE 30 MG CAP GTB SCH (04:59)
[2018-11-19] MEDS: hydrALAzine 20 MG INJ IV PRN (07:49)
[2018-11-19] MEDS: DILTIAZEM 30 MG TAB GTB SCH ×2 (08:59→20:57)
[2018-11-19] MEDS: ASPIRIN 81 MG TAB GTB SCH (08:59)
[2018-11-19] MEDS: POTASSIUM CHLORIDE 20 MEQ POWDER FOR ORAL SOLN GTB SCH (09:00)
[2018-11-19] MEDS: SEVELAMER CARBONATE 0.8 GM PKT GTB SCH ×3 (09:00→20:57)
[2018-11-19] MEDS: METOLAZONE 5 MG TAB PO SCH (09:00)
[2018-11-19] MEDS: ASCORBIC ACID 250 MG TAB GTB SCH (09:00)
[2018-11-19] MEDS: ESCITALOPRAM 10 MG TAB GTB SCH (09:00)
[2018-11-19] MEDS: FOLIC ACID 1 MG TAB GTB SCH (09:01)
[2018-11-19] MEDS: APIXABAN 5 MG TABLET PO SCH ×2 (09:01→20:58)
[2018-11-19] MEDS: SPIRONOLACTONE 25 MG TAB NGT SCH (09:01)
[2018-11-19] MEDS: MUPIROCIN 2% 22 GM OINT TOP SCH ×2 (09:01→20:59)
[2018-11-19] MEDS: BALSAM PERU/CASTOR OIL 60 GM TUBE TOP SCH (09:01)
[2018-11-19] MEDS: MEROPENEM 500MG/50 ML (PMX) 50 ML IVPB SCH ×2 (09:02→20:58)
[2018-11-19] MEDS: CASPOFUNGIN 50 MG in SOD CHLORIDE 0.9% 250 ML IVPB SCH (12:01)
[2018-11-19] MEDS: ACETAMINOPHEN 325 MG TAB PEG PRN ×2 (12:34→18:21)
[2018-11-19] MEDS: DUONEB XX SCH (19:00)
[2018-11-19] MEDS: [UNRECOGNIZED DRUG - OTHER] XX SCH (19:00)
[2018-11-19] MEDS: DILTIAZEM XX SCH (19:00)
[2018-11-19] MEDS: HYDRALAZINE XX SCH (19:00)
[2018-11-19] MEDS ORDERED: TOBRAMYCIN 150 MG in SOD CHLORIDE 0.9% 100 ML IVPB SCH (22:00)
[2018-11-20] VITALS (17 sets, daily range): BP systolic 134–145; BP diastolic 65–85; PULSE 89–97; RESP 19–29
[2018-11-20] MEDS: ALBUTEROL HFA 8 GM INHALER INH SCH ×4 (01:42→19:44)
[2018-11-20] MEDS: IPRATROPIUM (HFA) 12.9 GM INHALER INH SCH ×4 (01:42→19:43)
[2018-11-20] MEDS: [UNRECOGNIZED DRUG - OTHER] XX SCH ×3 (03:00→18:40)
[2018-11-20] MEDS: DILTIAZEM XX SCH ×3 (03:00→18:40)
[2018-11-20] MEDS: HYDRALAZINE XX SCH ×3 (03:00→18:40)
[2018-11-20] MEDS: DUONEB XX SCH ×3 (03:00→18:40)
[2018-11-20] MEDS: metroNIDAZOLE 500 MG TAB NGT SCH ×2 (06:30→13:40)
[2018-11-20] MEDS: LANSOPRAZOLE 30 MG CAP GTB SCH (06:30)
[2018-11-20] MEDS: SPIRONOLACTONE 25 MG TAB NGT SCH (09:01)
[2018-11-20] MEDS: ESCITALOPRAM 10 MG TAB GTB SCH (09:01)
[2018-11-20] MEDS: ASCORBIC ACID 250 MG TAB GTB SCH (09:02)
[2018-11-20] MEDS: DILTIAZEM 30 MG TAB GTB SCH ×2 (09:02→21:19)
[2018-11-20] MEDS: METOLAZONE 5 MG TAB PO SCH (09:02)
[2018-11-20] MEDS: FOLIC ACID 1 MG TAB GTB SCH (09:03)
[2018-11-20] MEDS: SEVELAMER CARBONATE 0.8 GM PKT GTB SCH ×3 (09:03→21:18)
[2018-11-20] MEDS: POTASSIUM CHLORIDE 20 MEQ POWDER FOR ORAL SOLN GTB SCH (09:03)
[2018-11-20] MEDS: ASPIRIN 81 MG TAB GTB SCH (09:03)
[2018-11-20] MEDS: BUMETANIDE 1 MG INJ IV SCH (09:04)
[2018-11-20] MEDS: MEROPENEM 500MG/50 ML (PMX) 50 ML IVPB SCH (09:04)
[2018-11-20] MEDS: MUPIROCIN 2% 22 GM OINT TOP SCH ×2 (09:04→21:18)
[2018-11-20] MEDS: BALSAM PERU/CASTOR OIL 60 GM TUBE TOP SCH (09:05)
[2018-11-20] MEDS: [UNRECOGNIZED DRUG - OTHER] XX SCH ×2 (09:30→16:42)
[2018-11-20] MEDS: VANCOMYCIN 1.5 GM/NS 250 ML 250 ML IVPB SCH (10:14)
[2018-11-20] MEDS: CASPOFUNGIN 50 MG in SOD CHLORIDE 0.9% 250 ML IVPB SCH (13:38)
[2018-11-20] MEDS: PIPER-TAZO 2.25 GM (PMX) 50 ML IVPB SCH ×2 (13:40→21:18)
[2018-11-21] VITALS (18 sets, daily range): BP systolic 127–162; BP diastolic 62–98; PULSE 91–105; RESP 18–31
[2018-11-21] MEDS: [UNRECOGNIZED DRUG - OTHER] XX SCH ×3 (01:30→14:55)
[2018-11-21] MEDS: ALBUTEROL HFA 8 GM INHALER INH SCH ×4 (01:46→19:40)
[2018-11-21] MEDS: IPRATROPIUM (HFA) 12.9 GM INHALER INH SCH ×4 (01:46→19:40)
[2018-11-21] MEDS: DILTIAZEM XX SCH ×3 (03:00→17:56)
[2018-11-21] MEDS: DUONEB XX SCH ×3 (03:00→17:56)
[2018-11-21] MEDS: [UNRECOGNIZED DRUG - OTHER] XX SCH ×3 (03:00→17:56)
[2018-11-21] MEDS: HYDRALAZINE XX SCH ×3 (03:00→17:56)
[2018-11-21] MEDS: PIPER-TAZO 2.25 GM (PMX) 50 ML IVPB SCH ×3 (05:38→21:57)
[2018-11-21] MEDS: LANSOPRAZOLE 30 MG CAP GTB SCH (05:38)
[2018-11-21] MEDS: MUPIROCIN 2% 22 GM OINT TOP SCH ×2 (09:09→21:57)
[2018-11-21] MEDS: BUMETANIDE 1 MG INJ IV SCH (09:12)
[2018-11-21] MEDS: BALSAM PERU/CASTOR OIL 60 GM TUBE TOP SCH (09:12)
[2018-11-21] MEDS: SEVELAMER CARBONATE 0.8 GM PKT GTB SCH ×3 (09:13→21:57)
[2018-11-21] MEDS: ASPIRIN 81 MG TAB GTB SCH (09:13)
[2018-11-21] MEDS: DILTIAZEM 30 MG TAB GTB SCH ×3 (09:13→21:57)
[2018-11-21] MEDS: ASCORBIC ACID 250 MG TAB GTB SCH (09:13)
[2018-11-21] MEDS: POTASSIUM CHLORIDE 20 MEQ POWDER FOR ORAL SOLN GTB SCH (09:14)
[2018-11-21] MEDS: ESCITALOPRAM 10 MG TAB GTB SCH (09:15)
[2018-11-21] MEDS: SPIRONOLACTONE 25 MG TAB NGT SCH (09:16)
[2018-11-21] MEDS: FOLIC ACID 1 MG TAB GTB SCH (09:19)
[2018-11-21] MEDS: METOLAZONE 5 MG TAB PO SCH (09:19)
[2018-11-21] MEDS: CASPOFUNGIN 50 MG in SOD CHLORIDE 0.9% 250 ML IVPB SCH (12:46)
[2018-11-22] VITALS (16 sets, daily range): BP systolic 119–155; BP diastolic 68–85; PULSE 87–103; RESP 18–30
[2018-11-22] MEDS: [UNRECOGNIZED DRUG - OTHER] XX SCH ×3 (01:40→17:30)
[2018-11-22] MEDS: IPRATROPIUM (HFA) 12.9 GM INHALER INH SCH ×4 (02:18→19:30)
[2018-11-22] MEDS: ALBUTEROL HFA 8 GM INHALER INH SCH ×4 (02:18→19:30)
[2018-11-22] MEDS: DUONEB XX SCH ×2 (03:00→11:00)
[2018-11-22] MEDS: [UNRECOGNIZED DRUG - OTHER] XX SCH ×2 (03:00→11:00)
[2018-11-22] MEDS: DILTIAZEM XX SCH ×2 (03:00→11:00)
[2018-11-22] MEDS: HYDRALAZINE XX SCH ×2 (03:00→11:00)
[2018-11-22] MEDS: ACETAMINOPHEN 325 MG TAB PEG PRN ×2 (06:53→22:47)
[2018-11-22] MEDS: PIPER-TAZO 2.25 GM (PMX) 50 ML IVPB SCH ×3 (06:53→22:04)
[2018-11-22] MEDS: LANSOPRAZOLE 30 MG CAP GTB SCH (06:53)
[2018-11-22] MEDS: ESCITALOPRAM 10 MG TAB GTB SCH (10:10)
[2018-11-22] MEDS: METOLAZONE 5 MG TAB PO SCH (10:11)
[2018-11-22] MEDS: DILTIAZEM 30 MG TAB GTB SCH ×3 (10:11→22:04)
[2018-11-22] MEDS: SPIRONOLACTONE 25 MG TAB NGT SCH (10:11)
[2018-11-22] MEDS: FOLIC ACID 1 MG TAB GTB SCH (10:12)
[2018-11-22] MEDS: BALSAM PERU/CASTOR OIL 60 GM TUBE TOP SCH (10:12)
[2018-11-22] MEDS: SEVELAMER CARBONATE 0.8 GM PKT GTB SCH ×3 (10:12→22:38)
[2018-11-22] MEDS: ASCORBIC ACID 250 MG TAB GTB SCH (10:12)
[2018-11-22] MEDS: ASPIRIN 81 MG TAB GTB SCH (10:12)
[2018-11-22] MEDS: BUMETANIDE 1 MG INJ IV SCH (10:13)
[2018-11-22] MEDS: MUPIROCIN 2% 22 GM OINT TOP SCH ×2 (10:14→21:00)
[2018-11-22] MEDS: VANCOMYCIN 1.5 GM/NS 250 ML 250 ML IVPB SCH (10:25)
[2018-11-22] MEDS: CASPOFUNGIN 50 MG in SOD CHLORIDE 0.9% 250 ML IVPB SCH (13:00)
[2018-11-22] MEDS ORDERED: LIDOCAINE 1% (MPF) 5 ML VIAL ONE (15:36)
[2018-11-22] MEDS: VANCOMYCIN 1 GM 250 ML IVPB SCH (22:38)
[2018-11-23] VITALS (18 sets, daily range): BP systolic 116–137; BP diastolic 60–86; PULSE 82–100; RESP 18–26
[2018-11-23] MEDS: ALBUTEROL HFA 8 GM INHALER INH SCH ×4 (01:09→20:50)
[2018-11-23] MEDS: IPRATROPIUM (HFA) 12.9 GM INHALER INH SCH ×4 (01:09→20:50)
[2018-11-23] MEDS: [UNRECOGNIZED DRUG - OTHER] XX SCH ×3 (01:30→16:36)
[2018-11-23] MEDS: LANSOPRAZOLE 30 MG CAP GTB SCH (05:50)
[2018-11-23] MEDS: PIPER-TAZO 2.25 GM (PMX) 50 ML IVPB SCH ×3 (05:50→21:32)
[2018-11-23] MEDS: SEVELAMER CARBONATE 0.8 GM PKT GTB SCH ×3 (08:52→21:32)
[2018-11-23] MEDS: ASCORBIC ACID 250 MG TAB GTB SCH (08:53)
[2018-11-23] MEDS: ESCITALOPRAM 10 MG TAB GTB SCH (08:53)
[2018-11-23] MEDS: SPIRONOLACTONE 25 MG TAB NGT SCH (08:53)
[2018-11-23] MEDS: BUMETANIDE 1 MG INJ IV SCH (08:53)
[2018-11-23] MEDS: METOLAZONE 5 MG TAB PO SCH (08:53)
[2018-11-23] MEDS: FOLIC ACID 1 MG TAB GTB SCH (08:53)
[2018-11-23] MEDS: BALSAM PERU/CASTOR OIL 60 GM TUBE TOP SCH (08:54)
[2018-11-23] MEDS: DILTIAZEM 30 MG TAB GTB SCH ×3 (08:54→21:33)
[2018-11-23] MEDS: ASPIRIN 81 MG TAB GTB SCH (08:54)
[2018-11-23] MEDS: MUPIROCIN 2% 22 GM OINT TOP SCH ×2 (08:56→21:33)
[2018-11-23] MEDS ORDERED: SOD CHLORIDE 0.9% 250 ML IV* ONE (11:00)
[2018-11-23] MEDS ORDERED: DIPHENHYDRAMINE 25 MG CAP PO ONE (11:00)
[2018-11-23] MEDS: CASPOFUNGIN 50 MG in SOD CHLORIDE 0.9% 250 ML IVPB SCH (12:29)
[2018-11-23] MEDS: [UNRECOGNIZED DRUG - OTHER] XX SCH ×4 (12:42→17:28)
[2018-11-23] MEDS: DILTIAZEM XX SCH ×4 (12:42→17:28)
[2018-11-23] MEDS: DUONEB XX SCH ×4 (12:42→17:28)
[2018-11-23] MEDS: HYDRALAZINE XX SCH ×4 (12:42→17:28)
[2018-11-23] MEDS: ACETAMINOPHEN 325 MG TAB PEG PRN (12:58)
[2018-11-24] VITALS (17 sets, daily range): BP systolic 125–135; BP diastolic 61–96; PULSE 82–88; RESP 19–28
[2018-11-24] MEDS: [UNRECOGNIZED DRUG - OTHER] XX SCH ×2 (01:30→09:02)
[2018-11-24] MEDS: ALBUTEROL HFA 8 GM INHALER INH SCH ×4 (03:13→20:40)
[2018-11-24] MEDS: IPRATROPIUM (HFA) 12.9 GM INHALER INH SCH ×4 (03:13→20:40)
[2018-11-24] MEDS: PIPER-TAZO 2.25 GM (PMX) 50 ML IVPB SCH ×3 (06:07→21:18)
[2018-11-24] MEDS: LANSOPRAZOLE (SOLTAB) 30 MG TAB GTB SCH (06:08)
[2018-11-24] MEDS: DUONEB XX SCH ×2 (08:58→10:50)
[2018-11-24] MEDS: HYDRALAZINE XX SCH ×2 (08:58→10:50)
[2018-11-24] MEDS: DILTIAZEM XX SCH ×2 (08:58→10:50)
[2018-11-24] MEDS: [UNRECOGNIZED DRUG - OTHER] XX SCH ×2 (08:58→10:50)
[2018-11-24] MEDS: BUMETANIDE 1 MG INJ IV SCH (08:59)
[2018-11-24] MEDS: SPIRONOLACTONE 25 MG TAB NGT SCH (08:59)
[2018-11-24] MEDS: ASPIRIN 81 MG TAB GTB SCH (08:59)
[2018-11-24] MEDS: ASCORBIC ACID 250 MG TAB GTB SCH (08:59)
[2018-11-24] MEDS: FOLIC ACID 1 MG TAB GTB SCH (08:59)
[2018-11-24] MEDS: SEVELAMER CARBONATE 0.8 GM PKT GTB SCH ×3 (08:59→21:17)
[2018-11-24] MEDS: ESCITALOPRAM 10 MG TAB GTB SCH (08:59)
[2018-11-24] MEDS: MUPIROCIN 2% 22 GM OINT TOP SCH ×2 (09:00→21:18)
[2018-11-24] MEDS: METOLAZONE 5 MG TAB PO SCH (09:01)
[2018-11-24] MEDS: DILTIAZEM 30 MG TAB GTB SCH ×3 (09:01→21:18)
[2018-11-24] MEDS: BALSAM PERU/CASTOR OIL 60 GM TUBE TOP SCH (09:02)
[2018-11-24] MEDS: CASPOFUNGIN 50 MG in SOD CHLORIDE 0.9% 250 ML IVPB SCH (12:06)
[2018-11-24] MEDS: VANCOMYCIN 1 GM 250 ML IVPB SCH (22:48)
[2018-11-25] VITALS (18 sets, daily range): BP systolic 121–156; BP diastolic 63–75; PULSE 74–92; RESP 18–30
[2018-11-25] MEDS: IPRATROPIUM (HFA) 12.9 GM INHALER INH SCH ×4 (03:01→19:30)
[2018-11-25] MEDS: ALBUTEROL HFA 8 GM INHALER INH SCH ×4 (03:01→19:30)
[2018-11-25] MEDS: PIPER-TAZO 2.25 GM (PMX) 50 ML IVPB SCH ×3 (07:11→22:01)
[2018-11-25] MEDS: LANSOPRAZOLE (SOLTAB) 30 MG TAB GTB SCH (07:11)
[2018-11-25] MEDS: SEVELAMER CARBONATE 0.8 GM PKT GTB SCH ×3 (09:35→22:01)
[2018-11-25] MEDS: FOLIC ACID 1 MG TAB GTB SCH (09:36)
[2018-11-25] MEDS: SPIRONOLACTONE 25 MG TAB NGT SCH (09:36)
[2018-11-25] MEDS: ASCORBIC ACID 250 MG TAB GTB SCH (09:36)
[2018-11-25] MEDS: DILTIAZEM 30 MG TAB GTB SCH ×3 (09:36→22:01)
[2018-11-25] MEDS: ASPIRIN 81 MG TAB GTB SCH (09:36)
[2018-11-25] MEDS: ESCITALOPRAM 10 MG TAB GTB SCH (09:37)
[2018-11-25] MEDS: MUPIROCIN 2% 22 GM OINT TOP SCH ×2 (09:37→22:02)
[2018-11-25] MEDS: BALSAM PERU/CASTOR OIL 60 GM TUBE TOP SCH (09:37)
[2018-11-25] MEDS: CASPOFUNGIN 50 MG in SOD CHLORIDE 0.9% 250 ML IVPB SCH ×2 (12:00→15:26)
[2018-11-26] VITALS (18 sets, daily range): BP systolic 128–144; BP diastolic 60–77; PULSE 81–88; RESP 19–29
[2018-11-26] MEDS: ALBUTEROL HFA 8 GM INHALER INH SCH ×4 (01:37→19:45)
[2018-11-26] MEDS: IPRATROPIUM (HFA) 12.9 GM INHALER INH SCH ×4 (01:37→19:45)
[2018-11-26] MEDS: PIPER-TAZO 2.25 GM (PMX) 50 ML IVPB SCH ×3 (06:01→22:04)
[2018-11-26] MEDS: LANSOPRAZOLE (SOLTAB) 30 MG TAB GTB SCH (06:01)
[2018-11-26] MEDS: FOLIC ACID 1 MG TAB GTB SCH (08:19)
[2018-11-26] MEDS: SPIRONOLACTONE 25 MG TAB NGT SCH (08:20)
[2018-11-26] MEDS: ESCITALOPRAM 10 MG TAB GTB SCH (08:20)
[2018-11-26] MEDS: ASPIRIN 81 MG TAB GTB SCH (08:20)
[2018-11-26] MEDS: ASCORBIC ACID 250 MG TAB GTB SCH (08:20)
[2018-11-26] MEDS: SEVELAMER CARBONATE 0.8 GM PKT GTB SCH ×3 (08:20→22:05)
[2018-11-26] MEDS: DILTIAZEM 30 MG TAB GTB SCH ×3 (08:20→22:06)
[2018-11-26] MEDS: BALSAM PERU/CASTOR OIL 60 GM TUBE TOP SCH (08:20)
[2018-11-26] MEDS: MUPIROCIN 2% 22 GM OINT TOP SCH ×2 (08:20→22:06)
[2018-11-26] MEDS: CASPOFUNGIN 50 MG in SOD CHLORIDE 0.9% 250 ML IVPB SCH (12:22)
[2018-11-26] MEDS ORDERED: BUMETANIDE 1 MG INJ IV ONE (14:00)
[2018-11-27] VITALS (18 sets, daily range): BP systolic 125–167; BP diastolic 63–86; PULSE 88–105; RESP 17–29
[2018-11-27] MEDS: ALBUTEROL HFA 8 GM INHALER INH SCH ×4 (01:16→20:04)
[2018-11-27] MEDS: IPRATROPIUM (HFA) 12.9 GM INHALER INH SCH ×4 (01:16→20:04)
[2018-11-27] MEDS: PIPER-TAZO 2.25 GM (PMX) 50 ML IVPB SCH ×3 (05:23→21:09)
[2018-11-27] MEDS: LANSOPRAZOLE (SOLTAB) 30 MG TAB GTB SCH (05:59)
[2018-11-27] MEDS: FOLIC ACID 1 MG TAB GTB SCH (08:21)
[2018-11-27] MEDS: DILTIAZEM 30 MG TAB GTB SCH ×3 (08:21→20:29)
[2018-11-27] MEDS: ASPIRIN 81 MG TAB GTB SCH (08:21)
[2018-11-27] MEDS: ASCORBIC ACID 250 MG TAB GTB SCH (08:21)
[2018-11-27] MEDS: ESCITALOPRAM 10 MG TAB GTB SCH (08:21)
[2018-11-27] MEDS: BALSAM PERU/CASTOR OIL 60 GM TUBE TOP SCH (08:22)
[2018-11-27] MEDS: MUPIROCIN 2% 22 GM OINT TOP SCH ×2 (08:22→20:30)
[2018-11-27] MEDS: SEVELAMER CARBONATE 0.8 GM PKT GTB SCH ×3 (08:22→20:28)
[2018-11-27] MEDS: CASPOFUNGIN 50 MG in SOD CHLORIDE 0.9% 250 ML IVPB SCH (12:10)
[2018-11-27] MEDS: hydrALAzine 20 MG INJ IV PRN (15:08)
[2018-11-27] MEDS ORDERED: VANCOMYCIN 1 GM 250 ML IVPB SCH (21:00)
[2018-11-28] MEDS ORDERED: VANCOMYCIN 750 MG (PMX) 250 ML IVPB SCH (11:00)
== END 2018-11-27 22:10 | disposition short-term general hospital (02) | DRG 4 ==
LOC: ICU 17:18 → 6WM 11-17 15:20
PROVIDERS: ADMIT Internal Medicine; ATTEND Internal Medicine
PROC: 5A1955Z Respiratory Ventilation, Greater than 96 Consecutive Hours (ICD-10-PCS; principal; 2018-10-21)
PROC: 0BH17EZ Insertion of Endotracheal Airway into Trachea, Via Natural or Artificial Opening (ICD-10-PCS; 2018-10-21)
PROC: 0DH63UZ Insertion of Feeding Device into Stomach, Percutaneous Approach (ICD-10-PCS; 2018-10-22)
PROC: 02HV33Z Insertion of Infusion Device into Superior Vena Cava, Percutaneous Approach (ICD-10-PCS; 2018-10-31)
PROC: 0B110F4 Bypass Trachea to Cutaneous with Tracheostomy Device, Open Approach (ICD-10-PCS; 2018-11-16)
PROC: 0W9B30Z Drainage of Left Pleural Cavity with Drainage Device, Percutaneous Approach (ICD-10-PCS; 2018-11-23)
DX: J96.01 Acute respiratory failure with hypoxia (principal); J69.0 Pneumonitis due to inhalation of food and vomit; G92 Toxic encephalopathy; A41.9 Sepsis, unspecified organism; I63.9 Cerebral infarction, unspecified; N17.9 Acute kidney failure, unspecified; E87.0 Hyperosmolality and hypernatremia; E44.0 Moderate protein-calorie malnutrition; J44.0 Chronic obstructive pulmonary disease with (acute) lower respiratory infection; J44.1 Chronic obstructive pulmonary disease with (acute) exacerbation; I13.0 Hypertensive heart and chronic kidney disease with heart failure and stage 1 through stage 4 chronic kidney disease, or unspecified chronic kidney disease; E87.4 Mixed disorder of acid-base balance; G72.81 Critical illness myopathy; N39.0 Urinary tract infection, site not specified; R64 Cachexia; I50.30 Unspecified diastolic (congestive) heart failure; I48.2 Chronic atrial fibrillation; J90 Pleural effusion, not elsewhere classified; I27.20 Pulmonary hypertension, unspecified; R33.9 Retention of urine, unspecified; N14.1 Nephropathy induced by other drugs, medicaments and biological substances; T50.2X5A Adverse effect of carbonic-anhydrase inhibitors, benzothiadiazides and other diuretics, initial encounter; E11.22 Type 2 diabetes mellitus with diabetic chronic kidney disease; D69.6 Thrombocytopenia, unspecified; N18.9 Chronic kidney disease, unspecified; K76.0 Fatty (change of) liver, not elsewhere classified; E87.5 Hyperkalemia; R13.10 Dysphagia, unspecified; F41.8 Other specified anxiety disorders; F41.9 Anxiety disorder, unspecified; J96.02 Acute respiratory failure with hypercapnia; E11.42 Type 2 diabetes mellitus with diabetic polyneuropathy; E88.09 Other disorders of plasma-protein metabolism, not elsewhere classified; L89.90 Pressure ulcer of unspecified site, unspecified stage; K29.80 Duodenitis without bleeding; D63.8 Anemia in other chronic diseases classified elsewhere; G89.29 Other chronic pain; M54.5 Low back pain; Z87.891 Personal history of nicotine dependence; Z68.32 Body mass index [BMI] 32.0-32.9, adult; Z79.01 Long term (current) use of anticoagulants
CPT/HCPCS: 31500; 36430; 36569; 36600; 70450; 70551; 71045; 71250; 74176; 76705; 76937; 76942; 80048; 80053; 80076; 80162; 80200; 80202; 81001; 81003; 82140; 82270; 82607; 82728; 82746; 82803; 82962; 83540; 83605; 83690; 83735; 83880; 84100; 84145; 84155; 84165; 84300; 84439; 84443; 85014; 85018; 85025; 85045; 85610; 85730; 86703; 86850; 86900; 86901; 86920; 87045; 87070; 87075; 87081; 87086; 89190; 89220; 94002; 94003; 94640; 94660; 94664; 94770; 95819; C9113; J0360; J0461; J0690; J0692; J1120; J1450; J1644; J1815; J1940; J1956; J2060; J2185; J2250; J2270; J2543; J2765; J2920; J2930; J3010; J3260; J3370; J3480; J7030; J7040; J7042; J7050; J7070; P9016; P9047